=== PATIENT | female | born 1980 | race Caucasian/White ===

== ENCOUNTER → 2022-10-17 09:49 | Outpatient (BNVA) | payer MEDICAID, SELFPAY | PROVIDERS: PCP Family Medicine; Visit Provider Physician Assistant Surgical ==

== ENCOUNTER → 2022-10-31 08:28 | Outpatient (BNVA) | payer MEDICAID, SELFPAY | PROVIDERS: PCP Family Medicine; Visit Provider Surgery ==

== ENCOUNTER 2022-11-08 09:27 | Outpatient (REF) | payer MEDICAID, SELFPAY ==
--- NOTE | ~2022-11-08 | XR_ITS ---
EXAMINATION: XR CHEST CLINICAL INFORMATION: Obesity COMPARISON: Previous chest x-ray from 2011 TECHNIQUE: 2 views of the chest were obtained. FINDINGS: No significant abnormality is noted involving the heart, lungs, mediastinum, bony thorax or soft tissues. XR/XR chest 2V IMPRESSION: Unremarkable examination.
[2022-11-08 09:45] LABS: MANUAL DIFF FLAG NO
[2022-11-08 10:27] LABS: Basophils Absolute Auto 0.1 X10*3/uL (0.0-0.2); Basophils Percent Auto 1.2 % (0-2); Eosinophils Absolute Auto 0.1 X10*3/uL (0.0-0.4); Eosinophils Percent Auto 2.3 % (0-4); Hematocrit 41.1 % (37.0-47.0); Hemoglobin 13.3 g/dl (12.0-16.0); Imm Gran Abs Auto 0.01 X10*3/uL (0.00-0.03); Imm Gran Pct Auto 0.2 % (0.0-0.4); Lymphocytes Absolute Auto 1.3 X10*3/uL (1.2-4.9); Lymphocytes Percent Auto 25.5 % (20-40); Mean Corpuscular HGB Conc 32.4 g/dl (31.0-35.0); Mean Corpuscular Hemoglobin 27.7 pg (27.0-33.0); Mean Corpuscular Volume 85.6 fL (80.0-98.0); Mean Platelet Volume 11.1 fL (9.4-12.3); Monocytes Absolute Auto 0.5 X10*3/uL (0.1-1.2); Monocytes Percent Auto 8.9 % (2-11); Neutrophils Absolute Auto 3.2 x10*3/uL (2.0-8.3); Neutrophils Percent Auto 61.9 % (45-73); Platelet Count 167 X10*3/uL (160-400); White Blood Count 5.2 X10*3/uL (4.8-10.8)
[2022-11-08 10:36] LABS: Estimated Average Glucose 100 mg/dL; Hemoglobin A1c % 5.1 %
--- NOTE | 2022-11-08 10:47 | ECG_ITS ---
Test Reason : MORBID OBESITY Blood Pressure : / mmHG Vent. Rate : 079 BPM Atrial Rate : 079 BPM P-R Int : 134 ms QRS Dur : 074 ms QT Int : 372 ms P-R-T Axes : 017 013 008 degrees QTc Int : 426 ms Normal sinus rhythm Normal ECG No previous ECGs available Referred By: Partha Kelsey Electronically Signed By:DANYA VELÁSQUEZ MD
[2022-11-08 11:39] LABS: Alanine Aminotransferase 28 U/L (0-31); Albumin Level 3.9 g/dL (3.5-5.0); Alkaline Phosphatase 61 U/L (39-117); Anion Gap 12 (12-20); Aspartate Amino Transferase 21 U/L (5-31); Bilirubin Total 0.6 mg/dL (0.0-1.0); Blood Urea Nitrogen 11 mg/dL (9-16); C Reactive Protein < 0.10 mg/dL (< or = 0.50); Calcium 9.2 mg/dL (8.4-10.2); Carbon Dioxide 23 mmol/L (22-29); Chloride 108 mmol/L (96-108); Cholesterol 154 mg/dL; Estimated Glomerular Filt Rate > 60; Glucose Random 87 mg/dL (60-115); HDL Cholesterol 33 mg/dL; Iron 54 mcg/dL (30-160); LDL Cholesterol Calculated 105 mg/dl; Percent Iron Saturation 15 % (15-50); Potassium 4.4 mmol/L (3.3-5.1); Sodium 139 mmol/L (135-145); Total Iron Binding Capacity 366 mcg/dL (228-428); Total Protein 6.8 g/dL (6.5-8.0); Triglycerides 81 mg/dL; Unsaturated Iron Binding 312 ug/dL
[2022-11-08 11:52] LABS: Ferritin 10 ng/mL (10-250); Folate 12.5 ng/mL (> or = 4.0); TSH reflex Free T4 0.86 uIU/mL (0.32-4.0); Vitamin B12 607 pg/mL (200-900); Vitamin D 25-OH Total 28.8 ng/mL (>30)
[2022-11-08 12:38] LABS: Insulin 15 uU/mL (2-29)
[2022-11-11 11:27] LABS: H Pylori Breath Test Positive (Negative)
[2022-11-12 15:24] LABS: Calcium (PTHI) 9.5 mg/dL (8.6-10.2); PTHI 24 pg/mL (16-77)
[2022-11-13 12:54] LABS: Zinc 71 mcg/dL (60-130)
[2022-11-15 05:58] LABS: Vitamin A 39 mcg/dL (38-98)
[2022-11-17 15:23] LABS: Vitamin B1 8 nmol/L (8-30)
== END 2022-11-08 09:28 | disposition home or self-care (01) ==
LOC: HO.LAB 09:27
PROVIDERS: PCP Family Medicine; Visit Provider Surgery
DX: E66.01 Morbid (severe) obesity due to excess calories (principal); E03.9 Hypothyroidism, unspecified; E78.5 Hyperlipidemia, unspecified; K21.9 Gastro-esophageal reflux disease without esophagitis; Z11.0 Encounter for screening for intestinal infectious diseases
CPT/HCPCS: 36415; 71046; 80053; 80061; 82306; 82607; 82728; 82746; 83013; 83036; 83525; 83540; 83970; 84425; 84443; 84590; 84630; 85025; 86140; 93005; 99211

== ENCOUNTER 2022-11-09 08:00 | Outpatient (REF) | payer MEDICAID, SELFPAY ==
--- NOTE | ~2022-11-09 | US_ITS ---
EXAMINATION: US COMPLETE ABDOMEN WITH LIVER ELASTOGRAPHY CLINICAL INFORMATION: Morbid/severe obesity. COMPARISON: None available. TECHNIQUE: Real-time imaging of the abdominal viscera. Noninvasive ultrasound liver fibrosis assessment is performed using [place] ElastPQ point quantification shear wave elastography (2D-SWE) with a C5-2 MHz transducer. Multiple elastography samples are obtained. FINDINGS: PANCREAS: The visualized pancreatic head and body are normal in appearance. The remainder of the pancreas is obscured from visualization by the overlying bowel gas. ABDOMINAL AORTA: The proximal, middle, and distal aortic segments are normal in caliber. INFERIOR VENA CAVA: Visualized portions are normal. LIVER: The liver demonstrates normal size, contour and increased echogenicity. No focal lesion or intrahepatic biliary duct dilatation. The right lobe measures 14.5 cm in length. The left lobe measures 9.5 cm in length. Portal flow is hepatopetal. Shear wave liver elastography median stiffness is 1.82 m/s (reference: normal median stiffness is 1.3 m/s or less). IQR/median stiffness to assess sampling precision is 0.14 (reference: good quality data set is IQR/median stiffness of 0.15 or less). GALLBLADDER: The gallbladder has been surgically removed. COMMON BILE DUCT: Normal in caliber measuring 0.8 cm in diameter. RIGHT KIDNEY: Normal. No hydronephrosis. No renal calculi or focal parenchymal lesions. The kidney measures 11.2 cm in maximum dimension. LEFT KIDNEY: Normal. No hydronephrosis. No renal calculi or focal parenchymal lesions. The kidney measures 10.2 cm in maximum dimension. SPLEEN: Normal. The spleen measures 9.7 cm in maximum dimension. FREE FLUID: None. US/US abdomen comp w elastography IMPRESSION: 1. Mild hepatic steatosis without focal lesion. Status post cholecystectomy. 2. Liver elastography: Median liver stiffness measures 1.82 m/s corresponding to cACLD (suggestive). REFERENCE: Society of Radiologists in Ultrasound Liver Stiffness Thresholds (2020): LIVER STIFFNESS THRESHOLDS: *Liver Stiffness equal or less than 1.3 m/s: High probability of being normal. *Liver Stiffness less than 1.7 m/s: In the absence of other known clinical signs, rules out compensated advanced chronic liver disease. *Liver Stiffness 1.7-2.1 m/s: Suggestive of compensated advanced chronic liver disease but need further test for confirmation. *Liver Stiffness over 2.1 m/s: Rules in compensated advanced chronic liver disease. *Liver Stiffness over 2.4 m/s: Suggestive of clinically significant portal hypertension. QUALITY OF DATA SET: *IQR/Median value equal or less than 0.15 implies a quality data set. *IQR/Median value over 0.15 implies a poor quality data set. SIGNIFICANT CHANGE FROM PRIOR EXAM: Significant change if liver stiffness measurement is 10% or greater from prior exam. OTHER CONSIDERATIONS: The stage of liver fibrosis may be overestimated in the setting of acute hepatitis, liver inflammation, elevated liver function tests, hepatic vascular congestion, obstructive cholestasis, non-fasting state, and infiltrative diseases such as amyloidosis and lymphoma. In some patients with NAFLD, the liver stiffness thresholds for compensated advanced chronic liver disease may be lower. In causes other than viral hepatitis and NAFLD, liver stiffness thresholds are not well established.
== END 2022-11-09 08:01 | disposition home or self-care (01) ==
LOC: HO.US 08:00
PROVIDERS: PCP Family Medicine; Visit Provider Surgery
DX: E66.01 Morbid (severe) obesity due to excess calories (principal); E03.9 Hypothyroidism, unspecified; K21.9 Gastro-esophageal reflux disease without esophagitis; E78.5 Hyperlipidemia, unspecified
CPT/HCPCS: 76705; 76981

== ENCOUNTER → 2022-11-27 09:10 | Outpatient (BNVA) | payer MEDICAID, SELFPAY | PROVIDERS: PCP Family Medicine; Visit Provider Dietitian, Registered | DX: E66.9 Obesity, unspecified (principal); Z68.39 Body mass index [BMI] 39.0-39.9, adult; Z71.3 Dietary counseling and surveillance | CPT/HCPCS: 97802 ==

== ENCOUNTER 2022-12-06 18:02 | Outpatient (REF) | payer MEDICAID, SELFPAY ==
--- NOTE | ~2022-12-06 | MR_ITS ---
EXAMINATION: MR LUMBAR SPINE WITHOUT CONTRAST CLINICAL INFORMATION: Lumbar radiculopathy. COMPARISON: Lumbar spine MRI 01/16/2010. TECHNIQUE: MRI of the lumbar spine was obtained using routine sequences without contrast. FINDINGS: The lumbar vertebral bodies maintain normal heights and alignment. Progressive now severe disc height loss is seen at L5-S1 with chronic degenerative endplate changes. The remaining disc heights appear preserved. There is no bone marrow edema. The distal spinal cord appears normal. The conus medullaris terminates normally at the L1 level. The visualized paraspinal muscles and intra-abdominal and pelvic contents are within normal limits. SPINAL LEVELS: L1-L2: No posterior disc abnormality. No spinal canal or neural foraminal stenosis. L2-L3: No posterior disc abnormality. No spinal canal or neural foraminal stenosis. L3-L4: Mild disc bulging. No spinal canal or neural foraminal stenosis. L4-L5: Disc bulging with mild facet arthropathy. Mild encroachment with subarticular zones. L5-S1: Disc bulging with central protrusion with moderate facet arthropathy resulting in compression of the traversing right S1 nerve root, progressed from prior. Mild spinal canal stenosis. Osteophytic ridging extends into the left more than right neural foramina resulting in severe left and moderate to severe right neural foraminal stenosis. MR/MR lumbar spine wo con IMPRESSION: 1. At L5-S1 there is progressive now severe disc height loss with chronic degenerative endplate changes. Central protrusion results in compression of the traversing right S1 nerve root, progressed from prior. Severe left and moderate to severe right neural foraminal stenosis. 2. No significant abnormality seen at the remaining lumbar levels.
== END 2022-12-06 18:03 | disposition home or self-care (01) ==
LOC: HO.MRI 18:02
PROVIDERS: PCP Family Medicine; Visit Provider Family Medicine
DX: M54.16 Radiculopathy, lumbar region (principal)
CPT/HCPCS: 72148

== ENCOUNTER → 2022-12-10 14:00 | Outpatient (BNVA) | payer OTHER, MEDICAID, SELFPAY | PROVIDERS: PCP Family Medicine; Visit Provider Counselor Mental Health ==

== ENCOUNTER → 2022-12-13 09:55 | Outpatient (BNVA) | payer MEDICAID, SELFPAY | PROVIDERS: PCP Family Medicine; Visit Provider Physician Assistant Surgical | DX: Z11.0 Encounter for screening for intestinal infectious diseases (principal) | CPT/HCPCS: 99211 ==

== ENCOUNTER 2022-12-14 18:12 | Outpatient (REF) | payer MEDICAID, SELFPAY ==
[2022-12-19 12:10] LABS: H Pylori Breath Test Negative (Negative)
== END 2022-12-14 18:13 | disposition home or self-care (01) ==
LOC: HO.LNP 18:12
PROVIDERS: Visit Provider Physician Assistant Surgical
DX: Z01.818 Encounter for other preprocedural examination (principal)
CPT/HCPCS: 83013

== ENCOUNTER → 2022-12-24 08:07 | Outpatient (BNVA) | payer MEDICAID, SELFPAY | PROVIDERS: PCP Family Medicine; Visit Provider Surgery ==

== ENCOUNTER → 2022-12-27 10:00 | Outpatient (BNVA) | payer OTHER, MEDICAID, SELFPAY | PROVIDERS: PCP Family Medicine; Visit Provider Counselor Mental Health ==

== ENCOUNTER 2023-01-02 08:18 | Outpatient (REF) | payer MEDICAID, SELFPAY ==
--- NOTE | ~2023-01-02 | FL_ITS ---
EXAMINATION: XR FLUOROSCOPY UPPER GI WITH AIR CLINICAL INFORMATION: Obesity COMPARISON: None available. TECHNIQUE: Upper GI was performed using thin and thick barium and effervescent granules FINDINGS: Esophageal motility is normal. No hernia or reflux. The stomach and duodenum are normal. No fold thickening, mass, ulcer or stricture. FLUOROSCOPY TIME: 0.2 minutes DOSE AREA PRODUCT: 2 Hood per centimeter squared. Total dose 11 mgy. 22 saved fluoroscopic images. FL/FL upper GI w air IMPRESSION: Unremarkable examination.
== END 2023-01-02 08:19 | disposition home or self-care (01) ==
LOC: HO.XRAY 08:18
PROVIDERS: Visit Provider Surgery
DX: E66.01 Morbid (severe) obesity due to excess calories (principal); E03.9 Hypothyroidism, unspecified; K21.9 Gastro-esophageal reflux disease without esophagitis
CPT/HCPCS: 74246

== ENCOUNTER → 2023-01-03 09:51 | Outpatient (BNVA) | payer MEDICAID, SELFPAY | PROVIDERS: PCP Family Medicine; Visit Provider Dietitian, Registered | DX: E66.9 Obesity, unspecified (principal) | CPT/HCPCS: 97803 ==

== ENCOUNTER 2023-01-14 13:14 | Outpatient (AMB) | payer MEDICAID, SELFPAY ==
[2023-01-14 10:15] VITALS: BMI 35.4
--- NOTE | 2023-01-14 10:15 | MHC.OFFVISWM ---
Intake VS Expanded 01/14/23 10:15 Height 5 ft 1 in Weight 187 lb 3.2 oz BMI 35.4 Body Fat 85.9 Body Fat Percentage 45.9 Free Fat Mass 101.2 Muscle Mass 95.2 Visceral Mass 18 Water Mass 69.4 BMR 1,349 Intake Visit Reasons: VIDEO F/U [facility] Escrow Manager Required: No Allergies diphenhydramine [From Benadryl] Allergy (Mild, Verified 12/13/22 10:10) Palpitations Medication List - Last Reconciled 01/14/23 by YANN Adam cholecalciferol (vitamin D3) 125 mcg PO DAILY levothyroxine 100 mcg PO DAILY HPI HPI Comments History of Present Illness Details 42 yo female returns for f/u in [facility] pre-op clinic Last seen by Dr Tatum Initial weight 212.4 pounds on 10/31/22 with a BMI of 40.1 Weight today 187.2 pounds with BMI of 35.4 Weight loss 25.2 pounds, 11.8 % TBWL Meal plan: one Premier protein shake (1/2 scoop in almond milk) one Premier shake (1 scoop in almond milk) one Zone Perfect protein bar one meal (8 forkfuls of protein and 8 forkfuls of salad or vegetables) Drinking 80-96 oz water Exercise plan: stationary bike, 200-500 calories daily PFS Medical History (Updated 12/24/22 @ 08:26 by Partha Kelsey MD) DJD (degenerative joint disease) GERD (gastroesophageal reflux disease) Hyperlipidemia Hypothyroidism Morbid obesity Surgical History (Updated 10/17/22 @ 09:59 by Sahra Queen CMA) Hx of section Hx of cholecystectomy Family History (Updated 10/17/22 @ 10:01 by Sahra Queen CMA) Mother Diabetes Hypertension Father No problems noted. Son No problems noted. Son No problems noted. Daughter No problems noted. Social History (Updated 10/17/22 @ 09:59 by Sahra Queen CMA) Alcohol intake: never Patient Tobacco Use Status: Current everyday Tobacco user Tobacco use type: Cigarette Cigarettes Per Day: 5 Review of Systems Const All systems reviewed & are unremarkable except as noted in HPI and below Assessment & Plan Assessment & Plan (1) Obesity: Code(s): E66.9 - Obesity, unspecified Plan: continue current meal plan She states she has less appetite for chicken as she is a picky eater. States will try turkey and more veg including green beans and aspagus Continue exercise and tracking calories Continue weekly measurements RTC as scheduled w Dr Tatum in February Telehealth Telehealth Location of provider rendering services: practice address Location of patient: address on file Patient Identification confirmed using: Name, : Yes Telehealth method: video Patient verbally consented to treatment: Yes Patient verbally consented to billing insurance company: Yes Patient informed of any privacy concerns related to visit: Yes Minutes spent on Phone/Video with Pt.: 15 Coding Level of Care Code Tele Est Pt Level 3 (16887) Diagnoses Obesity E66.9 Time Spent (min) 20
== END 2023-01-14 13:15 | disposition home or self-care (01) ==
LOC: HO.HBS 13:14
PROVIDERS: PCP Family Medicine; Visit Provider Physician Assistant Surgical
DX: E66.9 Obesity, unspecified (principal)
CPT/HCPCS: 99213

== ENCOUNTER 2023-01-21 09:45 | Outpatient (AMB) | payer OTHER, SELFPAY ==
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
== END 2023-01-21 13:33 | disposition home or self-care (01) ==
LOC: HO.HBST 10:48
PROVIDERS: PCP Family Medicine; Visit Provider Counselor Mental Health
DX: F06.30 Mood disorder due to known physiological condition, unspecified (principal); E66.01 Morbid (severe) obesity due to excess calories; Z68.36 Body mass index [BMI] 36.0-36.9, adult
CPT/HCPCS: 90832

== ENCOUNTER → 2023-01-21 09:45 | Outpatient (BNVA) | payer OTHER, MEDICAID, SELFPAY | PROVIDERS: PCP Family Medicine; Visit Provider Counselor Mental Health | DX: F06.30 Mood disorder due to known physiological condition, unspecified (principal); E66.01 Morbid (severe) obesity due to excess calories ==

== ENCOUNTER 2023-01-28 14:00 | Outpatient (AMB) | payer MEDICAID, SELFPAY ==
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
== END 2023-01-29 15:55 | disposition home or self-care (01) ==
LOC: HO.HBST 14:44
PROVIDERS: PCP Family Medicine; Visit Provider Counselor Mental Health
DX: F06.30 Mood disorder due to known physiological condition, unspecified (principal); E66.01 Morbid (severe) obesity due to excess calories
CPT/HCPCS: 90832

== ENCOUNTER → 2023-01-28 14:00 | Outpatient (BNVA) | payer OTHER, MEDICAID, SELFPAY | PROVIDERS: PCP Family Medicine; Visit Provider Counselor Mental Health | DX: F06.30 Mood disorder due to known physiological condition, unspecified (principal); E66.01 Morbid (severe) obesity due to excess calories ==

== ENCOUNTER 2023-02-22 07:58 | Outpatient (AMB) | payer MEDICAID, SELFPAY ==
--- NOTE | 2023-02-22 08:30 | A.OFFVIS_ITS ---
Intake VS Expanded 02/22/23 08:38 Height 5 ft 1 in Weight 180 lb 8 oz BMI 34.1 Body Fat 79.7 Body Fat Percentage 44.1 Free Fat Mass 101 Visceral Mass 17 Water Mass 69.2 BMR 1,345 Intake Visit Reasons: TV Follow Up SWL Allergies diphenhydramine [From Benadryl] Allergy (Mild, Verified 12/13/22 10:10) Palpitations HPI TV Follow Up SWL HPI Details Start time: 8.25am, End time: 8.45am ?I spent 15 minutes speaking with the patient on the phone plus an additional 5 minutes reviewing and updating records for a total of 20 minutes HPI Comments History of Present Illness Details Overall weight loss: 31.6lbs, or 14.88% TBWL Is doing 2 powdered Premier protein shake (1 one scoop each in 8oz almond milk), one Zone Perfect protein bar and one meal (8 forks of protein) Exercise: doing stationary bike at home for 400 calories daily x7 days per week PFSH Medical History (Updated 02/22/23 @ 08:41 by Partha Kelsey MD) DJD (degenerative joint disease) GERD (gastroesophageal reflux disease) Hyperlipidemia Hypothyroidism Morbid obesity Surgical History (Updated 10/17/22 @ 09:59 by Sahra Queen CMA) Hx of section Hx of cholecystectomy Family History (Updated 10/17/22 @ 10:01 by Sahra Queen CMA) Mother Diabetes Hypertension Father No problems noted. Son No problems noted. Son No problems noted. Daughter No problems noted. Social History (Updated 10/17/22 @ 09:59 by Sahra Queen CMA) Alcohol intake: never Patient Tobacco Use Status: Current everyday Tobacco user Tobacco use type: Cigarette Cigarettes Per Day: 5 Assessment & Plan Assessment & Plan (1) Obesity: Code(s): E66.9 - Obesity, unspecified Plan: 1. Plan for lap sleeve gastrectomy including upper GI endoscopy. All tests has been completed and reviewed and the patient is cleared for the surgery. ?If diaphragmatic or ventral hernias are present at time of surgery, these will be repaired laparoscopically as well. Risks and complications were discussed in detail including possible conversion to an open procedure, anastomotic leak, bleeding requiring transfusion, small bowel obstruction, , DVT and pulmonary embolism, cardiac, or pulmonary complications, as detention complications such as anastomotic ulcer, insufficient weight loss and vitamin deficiencies. I emphasized the importance of close follow-up, adherence to instructions and good communication. So far she has proven to be an excellent communicator and very compliant with all our directions accomplishing a great w eight loss. I believe that she is an excellent candidate and she is ready. 2. Change nutritional plan to one Premier protein shake (HALF scoop in 8oz almond milk), one powdered Premier protein shake (1 one scoop in 8oz almond milk), one Zone Perfect protein bar and one meal (8 forks of protein) 3. Exercise: Continue stationary bike at home for 400 calories daily x7 days per week 4. Continue to send me weigh measurements weekly on (2) BMI 34.0-34.9,adult: Code(s): Z68.34 - Body mass index [BMI] 34.0-34.9, adult Telehealth Telehealth Location of provider rendering services: practice address Location of patient: address on file Patient Identification confirmed using: Name, : Yes Telehealth method: voice only Patient verbally consented to treatment: Yes Patient verbally consented to billing insurance company: Yes Patient informed of any privacy concerns related to visit: Yes Minutes spent on Phone/Video with Pt.: 20 Coding Level of Care Code Tele Est Pt Level 3 (63298) Diagnoses Obesity E66.9 BMI 34.0-34.9,adult Z68.34 Time Spent (min) 20
[2023-02-22 08:38] VITALS: BMI 34.1
== END 2023-02-22 08:45 | disposition home or self-care (01) ==
LOC: HO.HBS 07:58
PROVIDERS: PCP Family Medicine; Visit Provider Surgery
DX: E66.9 Obesity, unspecified (principal); Z68.34 Body mass index [BMI] 34.0-34.9, adult
CPT/HCPCS: 99213

== ENCOUNTER → 2023-02-22 07:58 | Outpatient (BNVA) | payer MEDICAID, SELFPAY | PROVIDERS: PCP Family Medicine; Visit Provider Surgery ==

== ENCOUNTER 2023-02-26 11:28 | Outpatient (AMB) | payer MEDICAID, SELFPAY ==
--- NOTE | 2023-02-26 11:49 | MHC.OFFVISWM ---
Intake VS Expanded 02/26/23 18:56 Height 5 ft 1 in Weight 180 lb 8 oz BMI 34.1 Body Fat 79.7 Body Fat Percentage 44.1 Free Fat Mass 101 Visceral Mass 17 Water Mass 69.2 BMR 1,345 Intake Visit Reasons: TV Pre Op LSG 03/07/23 Allergies diphenhydramine [From Benadryl] Allergy (Mild, Verified 02/26/23 11:49) Palpitations Medication List - Last Reconciled 02/26/23 by Partha Kelsey MD cholecalciferol (vitamin D3) 125 mcg PO DAILY levothyroxine 100 mcg PO DAILY ondansetron 4 mg PO Q12H pantoprazole 40 mg PO DAILY polyethylene glycol 3350 (Miralax) 17 grams PO DAILY sucralfate 10 mL PO BID HPI TV Pre Op LSG 03/07/23 HPI Details Start time: 1.50pm, End time: 2.20pm I spent 25 minutes speaking with the patient on the phone plus an additional 5 minutes reviewing and updating records for a total of 30 minutes HPI Comments History of Present Illness Details Overall weight loss: 31.6lbs, or 14.88% TBWL Is doing 2 powdered Premier protein shake (1 one scoop each in 8oz almond milk), one Zone Perfect protein bar and one meal (8 forks of protein) Exercise: doing stationary bike at home for 400 calories daily x7 days per week ? PFSH Medical History (Updated 02/22/23 @ 08:41 by Partha Kelsey MD) DJD (degenerative joint disease) GERD (gastroesophageal reflux disease) Hyperlipidemia Hypothyroidism Morbid obesity Surgical History (Updated 10/17/22 @ 09:59 by Sahra Queen CMA) Hx of section Hx of cholecystectomy Family History (Updated 10/17/22 @ 10:01 by Sahra Queen CMA) Mother Diabetes Hypertension Father No problems noted. Son No problems noted. Son No problems noted. Daughter No problems noted. Social History (Updated 10/17/22 @ 09:59 by Sahra Queen CMA) Alcohol intake: never Patient Tobacco Use Status: Current everyday Tobacco user Tobacco use type: Cigarette Cigarettes Per Day: 5 Assessment & Plan Assessment & Plan (1) Obesity: Code(s): E66.9 - Obesity, unspecified Plan: 1. Plan for lap sleeve gastrectomy including upper GI endoscopy. All tests has been completed and reviewed and the patient is cleared for the surgery. ?If diaphragmatic or ventral hernias are present at time of surgery, these will be repaired laparoscopically as well. Risks and complications were discussed in detail including possible conversion to an open procedure, anastomotic leak, bleeding requiring transfusion, small bowel obstruction, , DVT and pulmonary embolism, cardiac, or pulmonary complications, as terminal gauger complications such as anastomotic ulcer, insufficient weight loss and vitamin deficiencies. I emphasized the importance of close follow-up, adherence to instructions and good communication. So far she has proven to be an excellent communicator and very compliant with all our directions accomplishing a great weight loss. I believe that she is an excellent candidate and she is ready. 2. Preop prescriptions were provided and explained the purpose of each one. Need to be purchased preop. Start Pantoprazole now as you get it from the pharmacy, 1 pill per day. Sucralfate and Zofran are for after surgery as needed. 3. Bowel prep: please do 7 packets ?of Miralax mixing each one with a an 8oz glass of water, crystal light, gatorade zero, or propel ?on 03/03/23 and the same amount on 03/04/23. Continue the protein shakes during? the bowel prep. 4. Needs to purchase 1oz medicine cups . 5. Needs to purchase Children's liquid Tylenol for postop pain control. 6. Avoid aspirin, motrin, Advil, Aleve, Ibuprofen, Naproxyn. Tylenol is OK. 7. She needs to purchase the Celebrate 4:1 protein shakes from the hospital's gift shop. 8. Will do basic preop blood work-up any day between Saturday02/27/23 and Saturday03/01/23 fasting for 12 hours and is scheduled to see the Anesthesiologist prior to the day of surgery. 9. Importance of adherence to postop folllow-up and recommendations was underscored and she understands that. 10. Stop food and bars as of today 02/26/23 and continue with 4 Premier powdered protein shakes (ONE scoop EACH in 8oz almond milk) at 7am-9am, 10am-12pp, 1pm-3pm and 4pm-6pm and ONE more Premier protein shake with HALF scoop in 8oz of almond milk at 7pm-9pm 11. No soups, broths or V8 12. The patient's?medical?history has been reviewed and they are considered low risk for post op DVT and therefore DVT prophylaxis is not considered necessary. Travel after surgery was reviewed. The patient has not disclosed any travel plans during the first 30 days after surgery and they have been advised that within the first 30 days after surgery any bus, plane, train or car travel over 2 hours in duration is contraindicated due to the possibility of developing blood clots from immobility. Any travel, needs to include periods of ambulation of 10 minutes in duration every 2 hours.? Patient was instructed to discuss any plans for travel during this period with their bariatric surgeon.? 13. Please take at the day of surgery the following medications: NONE 14. Stop any control pills and don't use them for one month after surgery 15. Absolutely no smoking or vaping, or marijuana until the surgery and for at least the first 4 weeks. Only nicotine patches are allowed. 16. Send me weight measurements on Saturday and then on Saturday03/05/23 the day of surgery before you go to the hospital. 17. Avoid any steroids by mouth for any reason. Let me know if someone prescribes them to you (2) BMI 34.0-34.9,adult: Code(s): Z68.34 - Body mass index [BMI] 34.0-34.9, adult (3) DJD (degenerative joint disease): Code(s): M19.90 - Unspecified osteoarthritis, unspecified site (4) GERD (gastroesophageal reflux disease): Code(s): K21.9 - Gastro-esophageal reflux disease without esophagitis (5) Hypothyroidism: Code(s): E03.9 - Hypothyroidism, unspecified Orders: Orders Type and Screen Today E66.9 - Obesity, unspecified, Z68.34 - Body mass index [BMI] 34.0-34.9, adult Comprehensive Met. Panel Today E66.9 - Obesity, unspecified, Z68.34 - Body mass index [BMI] 34.0-34.9, adult C Reactive Protein Today E66.9 - Obesity, unspecified, Z68.34 - Body mass index [BMI] 34.0-34.9, adult Hemoglobin A1c Today E66.9 - Obesity, unspecified, Z68.34 - Body mass index [BMI] 34.0-34.9, adult Insulin Today E66.9 - Obesity, unspecified, Z68.34 - Body mass index [BMI] 34.0-34.9, adult Lipid Panel Today E66.9 - Obesity, unspecified, Z68.34 - Body mass index [BMI] 34.0-34.9, adult TSH reflex Free T4 Today E66.9 - Obesity, unspecified, Z68.34 - Body mass index [BMI] 34.0-34.9, adult Prothrombin Time INR Today E66.9 - Obesity, unspecified, Z68.34 - Body mass index [BMI] 34.0-34.9, adult Partial Thromboplastin Time Today E66.9 - Obesity, unspecified, Z68.34 - Body mass index [BMI] 34.0-34.9, adult Complete Blood Count Auto Diff Today E66.9 - Obesity, unspecified, Z68.34 - Body mass index [BMI] 34.0-34.9, adult Medications: New pantoprazole 40 mg PO DAILY 30 tabs 2RF K21.9 - Gastro-esophageal reflux disease without esophagitis sucralfate 10 mL PO BID 400 mL 2RF K21.9 - Gastro-esophageal reflux disease without esophagitis ondansetron Use only if you have nausea 4 mg PO Q12H 20 tabs 0RF nausea and vomiting R11.0 - Nausea polyethylene glycol 3350 (Miralax) Mix each packet with 8oz of water, Gatorade zero, Propel or Crystal light and do 7 packets on 03/03/23 and another 7 packets on 03/04/23 17 grams PO DAILY 14 ea 0RF Z01.818 - Encounter for other preprocedural examination Telehealth Telehealth Location of provider rendering services: practice address Location of patient: address on file Patient Identification confirmed using: Name, : Yes Telehealth method: voice only Patient verbally consented to treatment: Yes Patient verbally consented to billing insurance company: Yes Patient informed of any privacy concerns related to visit: Yes Minutes spent on Phone/Video with Pt.: 30 Coding Level of Care Code Tele Est Pt Level 4 (60751) Diagnoses Obesity E66.9 BMI 34.0-34.9,adult Z68.34 DJD (degenerative joint disease) M19.90 GERD (gastroesophageal reflux disease) K21.9 Hypothyroidism E03.9 Time Spent (min) 30
[2023-02-26 18:56] VITALS: BMI 34.1
== END 2023-02-26 19:03 | disposition home or self-care (01) ==
LOC: HO.HBS 11:28
PROVIDERS: PCP Family Medicine; Visit Provider Surgery
DX: E66.9 Obesity, unspecified (principal); Z68.34 Body mass index [BMI] 34.0-34.9, adult
CPT/HCPCS: 99214

== ENCOUNTER → 2023-02-26 11:28 | Outpatient (BNVA) | payer MEDICAID, SELFPAY | PROVIDERS: PCP Family Medicine; Visit Provider Surgery ==

== ENCOUNTER 2023-02-28 10:44 | Outpatient (REF) | payer MEDICAID, SELFPAY ==
[2023-02-28 11:04] LABS: MANUAL DIFF FLAG NO
[2023-02-28 11:07] LABS: Basophils Absolute Auto 0.1 X10*3/uL (0.0-0.2); Eosinophils Absolute Auto 0.1 X10*3/uL (0.0-0.4); Eosinophils Percent Auto 1.5 % (0-4); Hematocrit 41.5 % (37.0-47.0); Hemoglobin 13.5 g/dl (12.0-16.0); Imm Gran Abs Auto 0.01 X10*3/uL (0.00-0.03); Imm Gran Pct Auto 0.2 % (0.0-0.4); Lymphocytes Absolute Auto 1.8 X10*3/uL (1.2-4.9); Lymphocytes Percent Auto 28.5 % (20-40); Mean Corpuscular HGB Conc 32.5 g/dl (31.0-35.0); Mean Corpuscular Hemoglobin 26.9 pg (27.0-33.0); Mean Corpuscular Volume 82.7 fL (80.0-98.0); Mean Platelet Volume 10.5 fL (9.4-12.3); Monocytes Absolute Auto 0.4 X10*3/uL (0.1-1.2); Monocytes Percent Auto 6.8 % (2-11); Neutrophils Absolute Auto 3.8 x10*3/uL (2.0-8.3); Platelet Count 168 X10*3/uL (160-400); Red Blood Count 5.02 X10*6/uL (4.20-5.50); Red Cell Distribution Width 15.2 % (11.0-16.0); White Blood Count 6.1 X10*3/uL (4.8-10.8)
[2023-02-28 11:20] LABS: INTERNATIONAL NORM RATIO 0.9 (0.9-1.1); Prothrombin Time 11.3 SEC (11.1-13.3)
[2023-02-28 11:22] LABS: Partial Thromboplastin Time 30.9 SEC (26.0-36.4)
[2023-02-28 11:28] LABS: Alanine Aminotransferase 14 U/L (0-31); Albumin Level 3.9 g/dL (3.5-5.0); Alkaline Phosphatase 56 U/L (39-117); Anion Gap 11 (12-20); Aspartate Amino Transferase 16 U/L (5-31); Bilirubin Total 0.7 mg/dL (0.0-1.0); Blood Urea Nitrogen 10 mg/dL (9-16); C Reactive Protein 0.11 mg/dL (< or = 0.50); Calcium 9.6 mg/dL (8.4-10.2); Carbon Dioxide 23 mmol/L (22-29); Chloride 110 mmol/L (96-108); Cholesterol 169 mg/dL (<200); Estimated Glomerular Filt Rate > 60; Glucose Random 93 mg/dL (60-115); HDL Cholesterol 39 mg/dL (>40); LDL Cholesterol Calculated 112 mg/dL (<100); Potassium 4.5 mmol/L (3.3-5.1); Sodium 139 mmol/L (135-145); Total Protein 7.4 g/dL (6.5-8.0); Triglycerides 92 mg/dL (<150)
[2023-02-28 11:32] LABS: Estimated Average Glucose 94 mg/dL; Hemoglobin A1c % 4.9 % (<6.0)
[2023-02-28 11:47] LABS: TSH reflex Free T4 2.16 uIU/mL (0.32-4.0)
[2023-02-28 15:17] LABS: Insulin 18 uU/mL (2-29)
== END 2023-02-28 10:45 | disposition home or self-care (01) ==
LOC: HO.LAB 10:44
PROVIDERS: Visit Provider Surgery
DX: E66.9 Obesity, unspecified (principal); Z68.34 Body mass index [BMI] 34.0-34.9, adult
CPT/HCPCS: 36415; 80053; 80061; 83036; 83525; 84443; 85025; 85610; 85730; 86140

== ENCOUNTER 2023-03-06 06:06 | Inpatient (IN) | payer MEDICAID, SELFPAY ==
[2023-02-27 09:38] VITALS: BMI 35.2
--- NOTE | 2023-03-01 23:05 | P.HPSUR_ITS ---
Pre-Procedural Eval Section A Date of Service: 03/01/23 The patient is an INPATIENT: Yes The History & Physical has been completed within 30 days and I have reviewed it.: Yes Section B Chief Complaint: Obesity, unspecified Relevant Family History (Specify if Yes): No Relevant Social History: None Present Medications: None Medical History: No relevant PMH History of Previous Operations: No relevant previous surgery Allergies: Allergies Allergy/AdvReac Type Severity Reaction Status Date / Time diphenhydramine Allergy Mild Palpitation Verified 02/26/23 11:49 [From Saniya] s Review of Systems Sugical H&P ROS: Negative: Constitution, Cardiovascular, Respiratory, Neurological, Psychiatric, Hem-Onc, Allergic/Immunologic, Gastrointestinal, Genitourinary, Musculoskeletal, Integumentary, Endocrine and Eye s/Ears/Nose/Throat Exam Surgical H&P Exam: Normal: HEENT, Normal: Heart, Normal: Lungs, Normal: Extremities, Normal: Abdomen, Normal: Skin and Normal: Neurological Plan Diagnosis/Plan: Unchanged I have reviewed the history and physical and performed a pertinent physical examination on my patient. No changes have occurred unless specified. Time Spent With Patient Time: Total time managing care of this patient today ____ minutes.
--- NOTE | 2023-03-04 12:12 | P.CONAN_ITS ---
Documented by User: Aissatou Mendoza NP 03/04/23 12:13 HPI - Anesthesia Eval Consult details Narrative: 43yo F for Gastrectomy Sleeve Egd, poss diaphragmatic hernia, poss Ventral hernia,poss open PMFSH Active Problems Active Problems: All Active Problems (Updated 02/27/23 @ 09:24 by Serenity Raphael RN) Insulin resistance (Acute) H. pylori infection (Acute) Vitamin D deficiency (Acute) Obesity (Acute) BMI 39.0-39.9,adult (Acute) Mood disorder due to known physiological condition, unspecified (Acute) BMI 36.0-36.9,adult (Acute) BMI 34.0-34.9,adult (Acute) Hyperlipidemia (Acute) DJD (degenerative joint disease) (Acute) GERD (gastroesophageal reflux disease) (Acute) Hypothyroidism (Acute) Morbid obesity (Acute) Past Medical History Medical History Anxiety Arthritis DJD (degenerative joint disease) GERD (gastroesophageal reflux disease) Lico's disease History of herniated intervertebral disc Hyperlipidemia Hypothyroidism Migraines Morbid obesity Numbness Sciatica Family History Family History Mother Diabetes Hypertension Father No problems noted. Son No problems noted. Son No problems noted. Daughter No problems noted. Surgical History Surgical History H/O Spinal surgery Hx of section Hx of cholecystectomy Social History Social History Are you a primary senior care specialist to a significant other at home: Yes Do you presently have visiting nurse or other home services: No Alcohol intake: never Patient Tobacco Use Status: Current everyday Tobacco user Tobacco use type: Cigarette Cigarettes Per Day: 5 Use of substances other than those prescribed or required for medical reasons: No Have you been hit, kicked, punched, or otherwise hurt by someone within the past year? If so, by whom?: No Are you DNR?: No Advance Directives: No Advance Directives Information Provided: No Advance Directives on File: No Recently lost weight without trying: No Eating poorly because of decreased appetite: No Nutrition Risks: No Nutritional Risk Patient : No : No Poor oral hygiene: No Meds Allergies Allergy/AdvReac Type Severity Reaction Status Date / Time diphenhydramine Allergy Mild Palpitation Verified 03/06/23 06:16 [From Jackyrios] s Home Medications Medication Instructions Recorded Confirmed Last Taken Type levothyroxine 100 mcg capsule 100 mcg PO DAILY 10/31/22 03/06/23 03/06/23 History Exam Exam Date and Time: March 04, 2023 1212 Height,Weight and Vital Signs: Height 5 ft Weight 81.647 kg Pertinent Lab Results Pertinent Lab Results: Laboratory Tests 02/28/23 10:53 Blood Type B Positive Antibody Screen NEGATIVE Laboratory Tests 02/28/23 02/28/23 10:58 10:58 WBC 6.1 Hgb 13.5 Hct 41.5 Plt Count 168 Sodium 139 Potassium 4.5 Chloride 110 H Carbon Dioxide 23 BUN 10 Creatinine 0.80 Narrative Narrative: EKG 11/2022 Vent. Rate : 079 BPM ? ? Atrial Rate : 079 BPM ?? P-R Int : 134 ms? QRS Dur : 074 ms ? ? QT Int : 372 ms ? ? ? P-R-T Axes : 017 013 008 degrees ?? QTc Int : 426 ms ? Normal sinus rhythm Normal ECG No previous ECGs available Assessment and Plan Assessment Anesthesia Assessment: Chart Reviewed Documented by User: Lani Beckham MD 03/06/23 08:04 [facility] Past Medical History Medical History Anxiety Arthritis DJD (degenerative joint disease) GERD (gastroesophageal reflux disease) Lico's disease History of herniated intervertebral disc Hyperlipidemia Hypothyroidism Migraines Morbid obesity Numbness Sciatica Family History Family History Mother Diabetes Hypertension Father No problems noted. Son No problems noted. Son No problems noted. Daughter No problems noted. Family history of problems with anesthesia: No Surgical History Surgical History H/O Spinal surgery Hx of section Hx of cholecystectomy History of Problems with Anesthesia: No Social History Social History Are you a primary senior care specialist to a significant other at home: Yes Do you presently have visiting nurse or other home services: No Alcohol intake: never Patient Tobacco Use Status: Current everyday Tobacco user Tobacco use type: Cigarette Cigarettes Per Day: 5 Use of substances other than those prescribed or required for medical reasons: No Have you been hit, kicked, punched, or otherwise hurt by someone within the past year? If so, by whom?: No Are you DNR?: No Advance Directives: No Advance Directives Information Provided: No Advance Directives on File: No Recently lost weight without trying: No Eating poorly because of decreased appetite: No Nutrition Risks: No Nutritional Risk Patient : No : No Poor oral hygiene: No Meds Allergies Allergy/AdvReac Type Severity Reaction Status Date / Time diphenhydramine Allergy Mild Palpitation Verified 03/06/23 06:16 [From Benadryeli] s Home Medications Medication Instructions Recorded Confirmed Last Taken Type levothyroxine 100 mcg capsule 100 mcg PO DAILY 10/31/22 03/06/23 03/06/23 History Exam Airway Mallampati Class: II TM Dist: >3cm Neck ROM: Full Heart: rrr Lungs: cta Assessment and Plan Assessment Anesthesia Assessment: Anesthesia Plan Discussed Final Anesthetic Review Family History of Problems with Anesthesia: No History of Problems with Anesthesia: No NPO: Yes ASA Class: III Final Preanesthetic Review: No Changes in Pt Med Stat, Meds/Allgs Chart Reviewed, Consent Obtained/Reviewed and Anes Risks/Benef Reviewed Patient Risk: Intermediate Procedure Risk: Intermediate Anesthetic Plan Anesthetic Plan: GA Disposition: Standard PACU
[2023-03-06] VITALS (12 sets, daily range): BP systolic 102–137; BP diastolic 67–99; PULSE 70–106; RESP 14–20; TEMP 35.5–36.7; O2SAT 96–100
[2023-03-06 06:30] LABS: UPreg QC Valid YES; Urine Pregnancy NEGATIVE (NEGATIVE)
[2023-03-06] MEDS: Lactated Ringers 1,000 ML 100 ML IVCONT ×2 (07:22→12:45)
[2023-03-06] MEDS: Lactated Ringers 1,000 ML 999 ML IV (07:23)
[2023-03-06] MEDS: Aprepitant 32 MG/4.4 ML VIAL IVPUSH (07:46)
--- NOTE | 2023-03-06 08:24 | PM.OP ---
Brief Operative Note Date of Service: 03/06/23 Pre-op diagnosis: Severe obesity with comorbidities (see below) Post-op diagnosis: same Procedure: INITIAL PATIENT BMI ON PRESENTATION AT OUR OFFICE: 40.1 kg/m2 LAST BMI BEFORE SURGERY: 34.3 kg/m2 COMORBIDITIES: hypothyroidism, GERD, back pain, hyperlipidemia, insulin resistance, liver steatosis ?The patient presented to the Weight Management Program with significant obesity that was negatively impacting the patient's comorbidities as listed above.? The program is a phased program with a special focus on preoperative medical weight management to promote substantial weight loss and prepare the patients for the second phase of the program: bariatric surgery. The patient participated in an intensive weekly lifestyle ?intervention and exercise program during which the patient ?has lost between the initial office visit and the last preoperative visit 33 lbs, or 15.54% of initial actual body weight. It was deemed appropriate for the patient to now have bariatric surgery. In light of the current Covid-19 pandemic and the well documented strong association of obesity and increased risk of worse outcomes if infected with Covid-19 (REFERENCES:https://pubmed.ncbi.nlm.nih.gov/95233096/,?https://pubmed.ncbi.nlm.nih.gov/08516795/), any delay in undergoing bariatric surgery may lead to the patient's worsening health condition and increased?risk of more severe Covid-19 disease if infected. In addition a recent?study from [facility] published in [employer] on 07/03/2021 ([email or web address]) found that, among patients with obesity, substantial weight loss achieved with surgery was associated with improved outcomes of COVID-19 infection. The findings suggest that obesity can be a modifiable risk factor for the severity of COVID-19 infection. In addition, the patient met the BMI-criteria for bariatric surgery based on the BMI on initial presentation. The patient should not be penalized for achieving such weight loss because ?it is not sustainable long-term without surgical intervention and it was achieved in preparation for bariatric surgery ?under my direction and based on my published research ([email or web address]).[email or web address] and?[email or web address].soard.org/article/[email or web address](89)51262-X/pdf) ?that a 10% preoperative weight loss improves long-term weight loss after surgery and reduces perioperative complications.? Insurance carriers such as [facility] have endorsed my recommendations ?and have included in their policies criteria to include a 10% preoperative weight loss requirement. PROCEDURE: Esophago-gastroscopy, laparoscopic sleeve gastrectomy and laparoscopic gastropexy INDICATIONS: This is a 43 year-old female who was electively scheduled for laparoscopic, possibly open sleeve gastrectomy. The risks and complications of the procedure were discussed with the patient in advance, particularly the possibility of ; pulmonary embolism; staple line leak; bleeding; GERD; cardiac, pulmonary, or renal complications; as well as long-term problems such as insufficient weight loss, vitamin deficiency, strictures, or ulcers. The patient understood all the risks, and was in agreement to proceed with surgery. DESCRIPTION OF PROCEDURE: After informed consent was obtained from the patient, the patient was given preoperative antibiotics, and was transferred to the operating room. After successful induction of general anesthesia, pneumatic compression devices were placed on both lower extremities. An upper endoscopy was performed next. The oropharynx and esophagus appeared to be within normal limits. There was no diaphragmatic hernia present consistent with the findings of the preoperative upper GI. The stomach was entered. Then after all fluid and air were suctioned and the stomach was fully decompressed, the scope was withdrawn and secured in the mid esophagus. The patient was then prepped and draped in the usual sterile manner, and abdominal access was established at the right upper quadrant with the Cody technique. A 12 mm blunt port was inserted, and the abdomen was insufflated with CO2 to a pressure of 15 mmHg. Under direct visualization, additional ports were placed, specifically two 5 mm Versi-step ports to the left upper quadrant, and a 5 mm Versi-Step port to the right upper quadrant. 1% lidocaine plain was used to infiltrate all port sites as well as all fascia defects. Following that, the patient was placed in a steep reverse Trendelenburg position. An additional 5 mm port was placed to the right flank for the Mediflex retractor that was used to retract the left lobe of the liver. The gastro-esophageal fat pad was opened with the ultrasonic device (Thunderbeat, Olympus) and the anterior esophagus and hiatus were exposed. The angle of His was opened with the ultrasonic device the fundus of the stomach from any diaphragmatic and splenic attachments. I then opened the gastrocolic ligament between the transverse colon and the greater curvature of the stomach with the ultrasonic device to enter the lesser sac and facilitate the ligation of the short gastric vessels. I started at a mid-point along the greater curvature and using the Thunderbeat, all short gastric vessels were divided all the way to the angle of His until the left pamela was completely dissected at its entirety. I then divided the gastro-colic ligament distally to a distance of about 3-4 cm proximal to the pylorus. There were extensive congenital adhesions between the pancreas and posterior gastric wall. Those were lysed completely with the ultrasonic device. Adhesiolysis took approximately 45 min to complete. The stomach was then divided transversely with one Endo DONAL-45 purple and four DONAL-60 articulating orange loads using the AEON stapler and loads. Every effort was made that the gastric sleeve had a tubular shape and an even caliber throughout. Once the sleeve resection was completed, the staple line of the gastric sleeve was reinforced with Hemoclips. The resected stomach was retrieved without difficulty from the Cody port. A gastropexy was then performed in order to prevent postoperative GERD and partial gastric volvulus. Several interrupted 2.0 Surgidac sutures were placed between the sleeve's staple line and the previously divided greater omentum and gastro-colic ligament using the Endo-Stitch device. ?An upper endoscopy was performed. There was no narrowing at the GE junction. The scope was easily advanced all the way to the pylorus which was clearly visualized. There was no narrowing anywhere and the sleeve's caliber was even throughout. The sleeve's staple line was inspected and there was no evidence of ischemia, bleeding or dehiscence. At that point the gastroscope was withdrawn from the patient?s mouth while we were decompressing the bowel and the stomach from any remaining air. I looked into the lesser sac to see how the sleeve was situating and it was situating well. There was no bleeding from the staple line, spleen, or short gastric vessels. The Mediflex retractor was removed, and the undersurface of the liver was inspected and there was no bleeding. The patient was placed in supine position. I closed the fascial defect of the 12 mm port site with a figure of eight #1 Polysorb suture. Then 30cc Ropivacaine plain with 10 mg of Dexamethasone were used to infiltrate the fascial closure as well as all skin incisions. A total of 7ml Zynrelef was applied in the Cody wound. At this point, the abdomen was deflated, all ports were removed under direct vision, and no bleeding was noted from any of the port sites. The skin incisions were irrigated with saline and were closed with 4-0 absorbable monofilament sutures. Steri-Strips and OpSites were used to cover all incisions. The patient was extubated and was transferred in stable condition to the recovery room for further care. I was present and performed all persaud parts of the procedure. Mr. Valentine was the clinical trial assistant. There were no residents to assist with this case. Westley Kelsey MD, PhD, FACS Surgeon: Partha Kelsey MD Anesthesia: GETA, local and other (TAP block and 7ml Zynrelef) Was an Accounting Manager Cpa used for this Procedure?: No Accounting Manager Cpa: Trenton Valentine Estimated blood loss (mL): 10 IV fluids (mL): 2,000 Urine output (mL): 0 (No White to record output) Pathology: other (Stomach) Condition: stable Disposition: PACU
--- NOTE | 2023-03-06 08:25 | PC.NURSE ---
Patient states that she only drank about 3 cups of bowel prep (Miralax mixed with water) due to it making her very constipated. Per her, bowel output is soft robles stool. Dr. Mejia and Dr. Valentine at bedside and made aware. No new orders at this time.
--- NOTE | 2023-03-06 10:55 | PM.DS ---
DS: Providers Provider Date of Service: 03/07/23 Date of admission: 03/06/23 06:06 Primary care physician: Betsy Waldrop MD DS: Summary Hospital Course Hospital Course: ADMITTING DIAGNOSIS: obesity, hypothyroid, HLD, DJD, anxiety ? DISCHARGE DIAGNOSIS: same, s/p laparoscopic sleeve gastrectomy ? PAST SURGICAL HISTORY: cesarian section, cholecystectomy ? PROCEDURE: upper endoscopy, laparoscopic sleeve gastrectomy ? DISCHARGE SUMMARY: ? History of Present Illness: ? The patient is a?43 year-old woman with a BMI of?40.1 kg/m2 and associated co-morbidities as described above. The patient had extensive work-up,lost?32.9 lbs preoperatively and was electively scheduled for laparoscopic, possible open sleeve gastrectomy and gastropexy. Risks and complications of the surgery were discussed with the patient in advance, particularly the possibility of , pulmonary embolism, anastomotic leak, bleeding, bowel injury, GERD, cardiac, renal or pulmonary complications. The patient understood all the risks and was in agreement with the surgical plan. ? Hospital Course: ? The patient underwent an uneventful laparoscopic sleeve gastrectomy with gastropexy on the day of admission. Postoperatively, the patient was transferred to the surgical floor. The patient received IV Acetaminophen and IV dilaudid for pain control. Patient was started on bariatric phase 1 diet POD #0. On postoperative day one, the patient was feeling well without nausea, vomiting, fevers, or tachycardia. The patient had some mild incisional pain and the abdomen was soft. ? On the morning of postoperative day one, the patient was continued on 1 ounce of water or ice every half hour. During the day, the patient did fairly well, having some incisional pain, but able to ambulate adequately and to tolerate liquids well. ? Since the patient is doing well, we decided that the patient was ready to be discharged. The patient was given instructions to follow-up with me next week and to call my office for any fever over 101, persistent abdominal pain, nausea, vomiting, GERD, symptoms of DVT such as calf tenderness, or leg swelling, or pulmonary embolism such as chest pain or shortness of breath. The patient was also instructed to drink 40-60 ounces of liquids per day using the 1-ounce cups. The patient had been given prescriptions for Tylenol for pain, Zofran prn for nausea, and pantoprazole and carafate previously. The patient was encouraged to ambulate and use the incentive spirometer. The patient was allowed to shower, but no baths, and encouraged to stay active at home. All of these instructions were given to the patient personally. All questions were answered and the patient understood all instructions, the instructions were also given to the patient in print. Time Spent with Patient Time attestation: Total time managing care of this patient today ____ minutes. Discharge coordination time: Less than 30 minutes Quality: Safe Use of Opioids Does Pt have an Active Cancer Diagnosis on the Problem List?: No Quality: Stroke Does the patient have a stroke diagnosis?: No Physical Exam Vital Signs: Vital Signs: Last Vital Signs Temp 97 F 03/06/23 10:51 Pulse 106 H 03/06/23 10:51 Resp 18 03/06/23 10:51 BP 113/80 03/06/23 10:51 Pulse Ox 99 03/06/23 10:51 O2 Del Method Simple Mask 03/06/23 10:51 O2 Flow Rate 8 03/06/23 10:51 BMI result Body Mass Index 35.2 DS: Data Data Completed and Pending Pending studies at discharge: Pending at discharge 03/06/23 09:53 Surgical [PTH] Routine Labs on day of discharge: Laboratory Results - last 24 hr 03/06/23 06:10 Urine Test NEGATIVE Discharge Plan Discharge Anticipated Discharge Date/Time: 03/07/23 09:57 Patient Disposition: Home, Self-Care Discharge Diagnosis: s/p laparoscopic sleeve gastrectomy Referrals: Betsy Waldrop MD [Primary Care Provider] - 1 Week Discharge Medications: Continued levothyroxine 100 mcg capsule 100 mcg PO DAILY pantoprazole 40 mg tablet,delayed release (DR/EC) 40 mg PO DAILY Qty: 30 2RF sucralfate 100 mg/mL suspension 10 ml PO BID Qty: 400 2RF ondansetron 4 mg tablet,disintegrating 4 mg PO Q12H Qty: 20 0RF Rx Instructions: Use only if you have nausea Discontinued cholecalciferol (vitamin D3) 125 mcg (5,000 unit) capsule 125 mcg PO DAILY Qty: 90 0RF Discharge Orders: Discharge Order (Routine); Ordered 03/07/23 Ordered By: Trenton Valentine Activity on Discharge: No heavy lifting Stand Alone Forms: Patient Portal Discharge page Care Plan Goals: weight loss Health Concerns: obesity Plan of Treatment: No tub baths, sex or returning to work until discussed at first post op appointment. No exercise, alcohol, tobacco or illegal drug use. Continue to use incentive spirometer hourly while awake. Walk in home for 5- 10 minutes every 2 hours during the first week. Follow all instructions in the bariatric handbook and call with any questions.Discharge Instructions 1. Please call your doctor or come back to the emergency room should any new symptoms arise. 2. You will receive a courtesy call from [facility] 24-48 hours after discharge. 3. Activity: abstain from alcohol, practice limited stair climbing, no bending, no driving, no exercise, no illicit substances, no lifting, no sex, no tub bath, no work. 4. Diet: continue as discussed with Dr. Kelsey. 5. Dressing Change/Wound Care: Your incision is covered by clear bandages and guaze underneath. If the area is tender, you may apply an ice pack for short intervals (no more than 20 minutes on, followed by at least 20 minutes off). Do not apply heat. Do not use creams, lotions, or topical antibiotics unless instructed to do so by your surgeon. These can cause infection or allergic reaction. 6. Call your doctor if: - Your temperature exceeds 101.5 F - You experience excessive pain or swelling - You have an unexpected reaction to medication - You have excessive bleeding - You experience continued vomiting/nausea - Your incision begins to separate - Your incision shows signs of infection such as increased redness, swelling, excessive pain, heat, or drainage (light blood or clear fluid is normal) 7. General instructions: No lifting greater than 5 lbs for the next 4 weeks[address] driving within 24 hours of taking narcotic pain medications. If you do not move your bowels in the next 2 days, please take milk of magnesia over the counter. Please follow the post op diet and do not advance your diet until you are seen in the office in about 2 weeks. Please walk around your home every hour or two to prevent blood clots from forming in your legs. You do not need to wake from sleeping to walk. Please sleep in a bed or couch to prevent kinking at the hips and knees. Please take your incentive spirometer (your lung strategy lead) home with you and use it for the next few days to prevent pneumonias. You may shower, no hot tubs, baths or swimming pools. Please call the office with any questions or concerns such as increasing abdominal pain, fever, chills, shortness of breath, chest pain, leg pain or swelling, or redness or drainage from your incisions. Please stay on stage 3 diet which includes sugar free clear liquids such as ice pops and jello and broth and crystal light. Avoid all carbonation. Please drink 3 protein shakes with at least 25-30 grams of protein daily or 3 of the Celebrate 4:1 shakes which can be purchased in our office. The Celebrate shakes have all of the bariatric vitamins you need if you consume these shakes. If you are drinking other protein shakes, you will need to purchase the Celebrate multivitamins and calcium that we provide in the office (they will provide all the vitamins you need). Please make sure you are consuming at least 40-60 ounces of water in addition to your 3 protein shakes daily. Do not hesitate to contact the office with any questions at . The patient's medical history has been reviewed and they are considered low risk for post op DVT and therefore DVT prophylaxis is not considered necessary. Travel after surgery was reviewed. The patient has not disclosed any travel plans during the first 30 days after surgery and they have been advised that within the first 30 days after surgery any bus, plane, train or car travel over 2 hours in duration is contraindicated due to the possibility of developing blood clots from immobility. Any travel, needs to include periods of ambulation of 10 minutes in duration every 2 hours.? The patient was instructed to discuss any plans for travel during this period with their bariatric surgeon. Assessment: stable s/p laparoscopic sleeve gastrectomy
[2023-03-06] MEDS: ondansetron HCL 4 MG/2 ML VIAL IVPUSH ×2 (11:14→16:16)
[2023-03-06 11:46] LABS: Hematocrit 40.9 % (37.0-47.0); Hemoglobin 12.8 g/dl (12.0-16.0)
[2023-03-06 12:05] LABS: Anion Gap 15 (12-20); Blood Urea Nitrogen 12 mg/dL (9-16); Calcium 8.4 mg/dL (8.4-10.2); Carbon Dioxide 19 mmol/L (22-29); Chloride 108 mmol/L (96-108); Creatinine Clr Calc Pharmacy 92.1; Estimated Glomerular Filt Rate > 60; Glucose Random 155 mg/dL (60-115); Potassium 3.6 mmol/L (3.3-5.1); Sodium 138 mmol/L (135-145)
[2023-03-06] MEDS: ceFAZolin Sodium/Dextrose,Iso 2 GM/50 ML PIGGYBACK IV (14:08)
[2023-03-06] MEDS: Acetaminophen 1,000 MG/100 ML PIGGYBACK 400 MG IV (19:02)
[2023-03-06] MEDS: Famotidine/PF 20 MG/2 ML VIAL IVPUSH (19:03)
[2023-03-06] MEDS: 0.9 % Sodium Chloride Flush 3 ML SYRINGE IVFLUSH (19:03)
[2023-03-07] MEDS: Lactated Ringers 1,000 ML 100 ML IVCONT (02:03)
[2023-03-07 03:21] VITALS: BP 120/79; PULSE 86; RESP 16; TEMP 36.4; O2SAT 97
[2023-03-07] MEDS: Acetaminophen 1,000 MG/100 ML PIGGYBACK 400 MG IV (05:18)
[2023-03-07 05:53] LABS: MANUAL DIFF FLAG NO
[2023-03-07 05:58] LABS: Basophils Percent Auto 0.1 % (0-2); Eosinophils Percent Auto 0.1 % (0-4); Hematocrit 36.2 % (37.0-47.0); Hemoglobin 11.7 g/dl (12.0-16.0); Imm Gran Abs Auto 0.05 X10*3/uL (0.00-0.03); Imm Gran Pct Auto 0.5 % (0.0-0.4); Mean Corpuscular HGB Conc 32.3 g/dl (31.0-35.0); Mean Corpuscular Volume 83.4 fL (80.0-98.0); Monocytes Absolute Auto 0.8 X10*3/uL (0.1-1.2); Monocytes Percent Auto 7.9 % (2-11); Neutrophils Absolute Auto 8.1 x10*3/uL (2.0-8.3); Neutrophils Percent Auto 81.4 % (45-73); Platelet Count 156 X10*3/uL (160-400); Red Blood Count 4.34 X10*6/uL (4.20-5.50); Red Cell Distribution Width 14.6 % (11.0-16.0); White Blood Count 9.9 X10*3/uL (4.8-10.8)
[2023-03-07 06:13] LABS: Anion Gap 10 (12-20); Blood Urea Nitrogen 8 mg/dL (9-16); Calcium 8.9 mg/dL (8.4-10.2); Carbon Dioxide 20 mmol/L (22-29); Chloride 110 mmol/L (96-108); Creatinine Clr Calc Pharmacy 110.2; Estimated Glomerular Filt Rate > 60; Glucose Random 93 mg/dL (60-115); Potassium 3.9 mmol/L (3.3-5.1); Sodium 136 mmol/L (135-145)
[2023-03-07] MEDS: Famotidine/PF 20 MG/2 ML VIAL IVPUSH (07:15)
[2023-03-07 07:27] VITALS: BP 130/67; PULSE 86; RESP 18; TEMP 36.4; O2SAT 96
--- NOTE | 2023-03-07 10:21 | MHC.CM.PN ---
PT REPORTS SHE LIVES AT HOME WITH HER S/O AND TWO YEAR OLD SON SHE THEN SAYS HER 24 YO DAUGHTER LIVES THERE TOO, BUT IS NOT INVOLVED IN MUCH AT HOME PT SAYS HER S/O WILL BE AT HOME WITH HER TODAY AND TOMORROW BUT THEN WILL RETURN TO WORK SHE IS WORRIED ABOUT CARING FOR HER 2 YO. 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
== END 2023-03-07 09:24 | disposition home or self-care (01) | DRG 403 ==
LOC: HO.SSSA 10:58 → HO.S3 11:10
PROVIDERS: Nurse Practitioner; Physician Assistant Surgical; Admitting Provider Surgery; PCP Family Medicine; Visit Provider Surgery
PROC: 0DB64Z3 Excision of Stomach, Percutaneous Endoscopic Approach, Vertical (ICD-10-PCS; CPT 43845; principal; 2023-03-06 08:10)
DX: E66.01 Morbid (severe) obesity due to excess calories (principal); K76.0 Fatty (change of) liver, not elsewhere classified; Q43.3 Congenital malformations of intestinal fixation; E06.3 Autoimmune thyroiditis; K21.9 Gastro-esophageal reflux disease without esophagitis; M54.9 Dorsalgia, unspecified; E78.5 Hyperlipidemia, unspecified; Z68.34 Body mass index [BMI] 34.0-34.9, adult; Z79.890 Hormone replacement therapy; Z79.899 Other long term (current) drug therapy
CPT/HCPCS: 36415; 80048; 81025; 85014; 85018; 85025; 86850; 86900; 86901; 88305; 88307; 88342; A4649; C9088; C9145; J0131; J0690; J1100; J1170; J2250; J2405; J2795; J3010

== ENCOUNTER → 2023-03-06 06:06 | Outpatient (BNV) | payer MEDICAID, SELFPAY | PROVIDERS: Admitting Provider Surgery; PCP Family Medicine; Visit Provider Surgery | DX: E66.9 Obesity, unspecified (principal); Z68.34 Body mass index [BMI] 34.0-34.9, adult | CPT/HCPCS: 43659; 43775 ==

== ENCOUNTER 2023-03-13 08:34 | Outpatient (AMB) | payer MEDICAID, SELFPAY ==
--- NOTE | 2023-03-13 08:49 | MHC.OFFVISWM ---
Intake VS Expanded 03/13/23 09:04 Height 5 ft 1 in Weight 176 lb 6.4 oz BMI 33.3 BP 101/66 Blood Pressure Location Rt brachial Blood Pressure Position Sitting Pulse 85 Pulse Source Pulse Oximeter Temp 96.7 F L Temperature Source Tympanic Pulse Oximetry 93 Oxygen Delivery Method Room Air Body Fat 70.8 Body Fat Percentage 40.1 Free Fat Mass 105.6 Muscle Mass 100.4 Visceral Mass 9.0 Water Mass 75.4 BMR 1,466 Intake Visit Reasons: (OV) 7 Days PO LSG 03/06/23 *Seeing Trenton @ 9AM Allergies diphenhydramine [From Benadryl] Allergy (Mild, Verified 03/06/23 06:16) Palpitations HPI HPI Comments History of Present Illness Details 43 yo female POD 7 s/p LSG on 03/06/23 does not like celebrate 4 in 1 1 scoop each x 3 32 oz additional water pos BM no pain PFSH Medical History Anxiety Arthritis DJD (degenerative joint disease) GERD (gastroesophageal reflux disease) Lico's disease History of herniated intervertebral disc Hyperlipidemia Hypothyroidism Migraines Morbid obesity Numbness Sciatica Surgical History H/O Spinal surgery Hx of section Hx of cholecystectomy Family History Mother Diabetes Hypertension Father No problems noted. Son No problems noted. Son No problems noted. Daughter No problems noted. Social History Household Members: Family Housing: Apartment Are you a primary healthcare customer service to a significant other at home: Yes Do you presently have visiting nurse or other home services: No Alcohol intake: never Patient Tobacco Use Status: Never used Tobacco Tobacco use type: Cigarette Cigarettes Per Day: 5 service: No Physical Exam Vital Signs: Last Vital Signs Temp 96.7 F L 03/13/23 09:04 Pulse 85 03/13/23 09:04 BP 101/66 03/13/23 09:04 Pulse Ox 93 03/13/23 09:04 Oxygen Delivery Method Room Air 03/13/23 09:04 BMI result Body Mass Index 33.3 GI Inspection: Yes incision (c/d/i) Assessment & Plan Assessment & Plan (1) S/P laparoscopic sleeve gastrectomy: Code(s): Z98.84 - Bariatric surgery status Plan: POD 7 s/p LSG on 03/06/[address] Kelsey Weight loss prior to surgery was 32.9 pounds or 15.4% TBWL. Original weight on 10/31/22 was 212.4 pounds and op weight was 179.5 pounds. Be sure to text Dr Kelsey exactly 1 week after surgery your weight from your home scale so he can adjust your meal plan. Continue meal plan until f/u w muller in 2 weeks May shower, no submersion in bath for another week Continue abdominal binder with activity and exercise for the next 2 weeks. Exercise prior to surgery was walking and stationary bike, may resume No abdominal exercises for 6 weeks post operatively Will be emailed link to post op video for review Reminded of the pace of drinking, 2 mL per minute, 1 oz/15 min. Coding Level of Care Code Global (33448) Diagnoses S/P laparoscopic sleeve gastrectomy Z98.84
[2023-03-13 09:04] VITALS: BP 101/66; PULSE 85; TEMP 35.9; O2SAT 93; BMI 33.3
== END 2023-03-13 09:26 | disposition home or self-care (01) ==
PROVIDERS: PCP Family Medicine; Visit Provider Physician Assistant Surgical
DX: Z98.84 Bariatric surgery status (principal)
CPT/HCPCS: 99024

== ENCOUNTER → 2023-03-13 08:34 | Outpatient (BNVA) | payer MEDICAID, SELFPAY | PROVIDERS: PCP Family Medicine; Visit Provider Physician Assistant Surgical ==

== ENCOUNTER 2023-04-04 11:29 | Outpatient (AMB) | payer MEDICAID, SELFPAY ==
--- NOTE | 2023-04-04 11:31 | MHC.OFFVISWM ---
Intake VS Expanded 04/04/23 11:37 Height 5 ft 1 in Weight 168 lb 3.2 oz BMI 31.8 BP 111/66 Blood Pressure Location Rt brachial Blood Pressure Position Sitting Pulse 98 Pulse Source Pulse Oximeter Temp 98.2 F Temperature Source Temporal Artery Scan Pulse Oximetry 99 Oxygen Delivery Method Room Air Body Fat 64.2 Body Fat Percentage 38.2 Free Fat Mass 103.8 Muscle Mass 98.6 Visceral Mass 8.0 Water Mass 74.0 BMR 1,434 Intake Visit Reasons: (OV) PO LSG 03/06/23 Behavioral Instructor Required: No Allergies diphenhydramine [From Benadryl] Allergy (Mild, Verified 04/04/23 11:40) Palpitations Medication List - Last Reconciled 04/04/23 by YANN Adam levothyroxine 100 mcg PO DAILY ondansetron 4 mg PO Q12H pantoprazole 40 mg PO DAILY sucralfate 10 mL PO BID HPI HPI Comments History of Present Illness Details This?a?43?yo female who is s/p LSG without hiatal hernia repair on?03/06/23. Presents for 1 month post op visit. Weight today is 168.2 pounds, with a BMI of 31.8. There has been a 44.2 pound weight loss,(initial weight 212.4 pounds) since starting the program on 10/31/22 reflecting a 20.8% total body weight loss and a weight loss of 11.3 pounds since surgery (operative weight 179.5 pounds) reflecting a 6.2% TBWL since surgery. No complaints of nausea, emesis, abdominal pain or reflux. Reports infrequent but normal bowel movements every 2-3 days and uses stool softeners regularly. c/o intermittent nausea, discussed w Dr Tatum and suggested change bar flavor, which she did although no sig change in nausea. Taking bariatric pal mvi w iron chewable in morning on empty stomach, does not like the bar at all. Present meal plan includes: Premier protein w almond milk 1 scoop, 10-12 pm 1 scoop, 2-4 pm 2 scoops, 5-7 pm drinking 64 oz water 2 hours per 16 oz bottle Exercise routine includes: bike, walk daily 400 calories PFSH Medical History Anxiety Arthritis DJD (degenerative joint disease) GERD (gastroesophageal reflux disease) Lico's disease History of herniated intervertebral disc Hyperlipidemia Hypothyroidism Migraines Morbid obesity Numbness Sciatica Surgical History H/O Spinal surgery Hx of section Hx of cholecystectomy Family History Mother Diabetes Hypertension Father No problems noted. Son No problems noted. Son No problems noted. Daughter No problems noted. Social History Household Members: Family Housing: Apartment Are you a primary healthcare manager to a significant other at home: Yes Do you presently have visiting nurse or other home services: No Alcohol intake: never Patient Tobacco Use Status: Never used Tobacco Tobacco use type: Cigarette Cigarettes Per Day: 5 service: No Physical Exam Vital Signs: Last Vital Signs Temp 98.2 F 04/04/23 11:37 Pulse 98 04/04/23 11:37 BP 111/66 04/04/23 11:37 Pulse Ox 99 04/04/23 11:37 Oxygen Delivery Method Room Air 04/04/23 11:37 BMI result Body Mass Index 31.8 GI Inspection: Yes incision (c/d/i) Assessment & Plan Assessment & Plan (1) Obesity: Code(s): E66.9 - Obesity, unspecified Plan: rtc 1 month change to celebrate MVI at night after third shake, add karissa+D BID try celebrate bar x 1 if likes will text me to adjust meal plan Continue exercise Discussed drinking water too fast Again discussed pace of drinking Coding Level of Care Code Global (69305) Diagnoses Obesity E66.9
[2023-04-04 11:37] VITALS: BP 111/66; PULSE 98; TEMP 36.8; O2SAT 99; BMI 31.8
== END 2023-04-04 12:07 | disposition home or self-care (01) ==
PROVIDERS: PCP Family Medicine; Visit Provider Physician Assistant Surgical
DX: E66.9 Obesity, unspecified (principal)
CPT/HCPCS: 99024

== ENCOUNTER → 2023-04-04 11:29 | Outpatient (BNVA) | payer MEDICAID, SELFPAY | PROVIDERS: PCP Family Medicine; Visit Provider Physician Assistant Surgical ==

== ENCOUNTER 2023-05-08 13:15 | Outpatient (AMB) | payer MEDICAID, SELFPAY ==
--- NOTE | 2023-05-08 13:19 | MHC.OFFVISWM ---
Intake VS Expanded 05/08/23 13:20 Height 5 ft 1 in Weight 153 lb 6.4 oz BMI 29.0 Intake Visit Reasons: (tV) PO LSG 03/06/23 Advertising Operations Coordinator Required: No Allergies diphenhydramine [From Benadryl] Allergy (Mild, Verified 04/04/23 11:40) Palpitations Medication List - Last Reconciled 05/08/23 by YANN Adam levothyroxine 100 mcg PO DAILY pantoprazole 40 mg PO DAILY sucralfate 10 mL PO BID HPI HPI Comments History of Present Illness Details This?a?43?yo female who is s/p LSG without hiatal hernia repair on?03/06/23. Presents for 2 month post op visit. Weight today is 153.4 pounds, with a BMI of 29. There has been a 59 pound weight loss,(initial weight 212.4 pounds) since starting the program on 10/31/22 reflecting a 27.7% total body weight loss and a weight loss of 26.1 pounds since surgery (operative weight 179.5 pounds) reflecting a 14.5% TBWL since surgery. No complaints of nausea, emesis, abdominal pain or reflux. Reports infrequent but normal bowel movements every 2-3 days and uses stool softeners regularly. No further nausea or constipation. Now taking celebrate MVI, does not like the protein bars, does not want to start food. she feels great and is very happy with her progress. She reports some hunger around 9 pm Present meal plan includes: Premier protein w almond milk 1 scoop, 10-12 pm 1 scoop, 2-4 pm 2 scoops, 5-7 pm drinking 32-40 oz water 2 hours per 16 oz bottle Exercise routine includes: bike, walk daily 400-500 calories and squats and aerobics PFSH Medical History Anxiety Arthritis DJD (degenerative joint disease) GERD (gastroesophageal reflux disease) Lico's disease History of herniated intervertebral disc Hyperlipidemia Hypothyroidism Migraines Morbid obesity Numbness Sciatica Surgical History H/O Spinal surgery Hx of section Hx of cholecystectomy Family History Mother Diabetes Hypertension Father No problems noted. Son No problems noted. Son No problems noted. Daughter No problems noted. Social History Household Members: Family Housing: Apartment Are you a primary manager intensive care unit to a significant other at home: Yes Do you presently have visiting nurse or other home services: No Alcohol intake: never Patient Tobacco Use Status: Never used Tobacco Tobacco use type: Cigarette Cigarettes Per Day: 5 service: No Assessment & Plan Assessment & Plan (1) S/P laparoscopic sleeve gastrectomy: Code(s): Z98.84 - Bariatric surgery status Plan: change meal plan to Premier protein 1 scoop each 10-12, 2-4, 5-7, 8-10 Continue exercise plan and rtc 1 month Much improved on celebrate MVI, no further nausea or constipation Telehealth Telehealth Location of provider rendering services: practice address Location of patient: address on file Patient Identification confirmed using: Name, : Yes Telehealth method: voice only Patient verbally consented to treatment: Yes Patient verbally consented to billing insurance company: Yes Patient informed of any privacy concerns related to visit: Yes Minutes spent on Phone/Video with Pt.: 15 Coding Level of Care Code Global (00162) Diagnoses S/P laparoscopic sleeve gastrectomy Z98.84
[2023-05-08 13:20] VITALS: BMI 29.0
== END 2023-05-08 13:41 | disposition home or self-care (01) ==
LOC: HO.HBS 13:15
PROVIDERS: PCP Family Medicine; Visit Provider Physician Assistant Surgical
DX: Z98.84 Bariatric surgery status (principal)
CPT/HCPCS: 99024

== ENCOUNTER → 2023-05-08 13:15 | Outpatient (BNVA) | payer MEDICAID, SELFPAY | PROVIDERS: PCP Family Medicine; Visit Provider Physician Assistant Surgical ==

== ENCOUNTER 2023-06-12 13:52 | Outpatient (AMB) | payer MEDICAID, SELFPAY ==
--- NOTE | 2023-06-12 13:22 | A.OFFVIS_ITS ---
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 Presents for 3 month post op visit. Weight today is 143.6 pounds, with a BMI of 27.1. There has been a 68.8 pound weight loss,(initial weight 212.4 pounds) since starting the program on 10/31/22 reflecting a 32.3% total body weight loss and a weight loss of 35.9 pounds since surgery (operative weight 179.5 pounds) reflecting a 20% TBWL since surgery. No complaints of nausea, emesis, abdominal pain or reflux. Reports infrequent but normal bowel movements every 2-3 days and uses stool softeners regularly. No further nausea or constipation. Now taking celebrate MVI, Meal plan was changed by Dr Kelsey. She states she is satisfied with her meal plan. She has great energy. Present meal plan includes: Premier protein 1/2 scoop in 8 oz almond milk 7-9 1/2 scoop 11-1 ZP bar 3-5 meal 6 pm, 4 forks protein 4 forks veg 1/2 scoop 8-10 drinking 48 oz water Exercise routine includes: daily bike, walk daily 400 calories [facility] Medical History Migraines Arthritis Lico's disease Anxiety Sciatica Numbness History of herniated intervertebral disc BMI 36.0-36.9,adult BMI 39.0-39.9,adult H. pylori infection Hyperlipidemia DJD (degenerative joint disease) GERD (gastroesophageal reflux disease) Hypothyroidism Morbid obesity Surgical History H/O Spinal surgery Hx of section Hx of cholecystectomy Family History Mother Diabetes Hypertension Father No problems noted. Son No problems noted. Son No problems noted. Daughter No problems noted. Social History Household Members: Family Housing: Apartment Are you a primary child care lead teacher to a significant other at home: Yes Do you presently have visiting nurse or other home services: No Alcohol intake: never Patient Tobacco Use Status: Never used Tobacco Tobacco use type: Cigarette Cigarettes Per Day: 5 service: No Review of Systems Const All systems reviewed & are unremarkable except as noted in HPI and below Assessment & Plan Assessment & Plan (1) Overweight (BMI 25.0-29.9): Code(s): E66.3 - Overweight Plan: Patient is very satisfied with her current meal plan. She will continue and continue to text her weight. She is exercising appropriately and she is overall very satisfied with her current condition. Return to clinic 6 weeks. Telehealth Telehealth Location of provider rendering services: practice address Location of patient: address on file Patient Identification confirmed using: Name, : Yes Telehealth method: voice only Patient verbally consented to treatment: Yes Patient verbally consented to billing insurance company: Yes Patient informed of any privacy concerns related to visit: Yes Minutes spent on Phone/Video with Pt.: 20 Coding Level of Care Code Tele Est Pt Level 3 (85483) Diagnoses Overweight (BMI 25.0-29.9) E66.3 Time Spent (min) 25
[2023-06-12 13:29] VITALS: BMI 27.1
== END 2023-06-12 13:55 | disposition home or self-care (01) ==
LOC: HO.HBS 13:52
PROVIDERS: PCP Family Medicine; Visit Provider Physician Assistant Surgical
DX: E66.3 Overweight (principal)
CPT/HCPCS: 99213

== ENCOUNTER → 2023-06-12 13:52 | Outpatient (BNVA) | payer MEDICAID, SELFPAY | PROVIDERS: PCP Family Medicine; Visit Provider Physician Assistant Surgical ==

== ENCOUNTER 2023-08-12 08:37 | Outpatient (AMB) | payer MEDICAID, SELFPAY ==
[2023-08-12 08:23] VITALS: BMI 24.5
--- NOTE | 2023-08-12 08:23 | MHC.OFFVISWM ---
Intake VS Expanded 08/12/23 08:23 Height 5 ft 1 in Weight 129 lb 9.6 oz BMI 24.5 Body Fat % 29 Body Fat Mass 37.5 Fat Free Mass 92 Visceral Fat Rating 8 Body Water % 48.7 Body Water Mass 63.1 Muscle Mass/Score 86.4 Basal Metabolic Rate/Score 1,280 Intake Visit Reasons: VIDEO PO LSG 03/06/23 Allergies diphenhydramine [From Benadryl] Allergy (Mild, Verified 04/04/23 11:40) Palpitations HPI HPI Comments History of Present Illness Details This?a?43?yo female who is s/p LSG without hiatal hernia repair on?03/06/23. Presents for 5 month post op visit. Weight today is 129.6 pounds, with a BMI of 24.5. There has been a 82.8 pound weight loss,(initial weight 212.4 pounds) since starting the program on 10/31/22 reflecting a 38.9% total body weight loss and a weight loss of 49.9 pounds since surgery (operative weight 179.5 pounds) reflecting a 27.7% TBWL since surgery. No complaints of nausea, emesis, abdominal pain or reflux. Reports infrequent but normal bowel movements every 2-3 days and uses stool softeners regularly. No further nausea or constipation. Now taking celebrate MVI, She reports intermittent lightheadedness, mostly when she bends over. She is happy with her current meal plan and does not want to change it. She states her goal is to reach 120 pounds. She has extra skin of her thighs and under her belly. She has had several rashes to under her abdomen and thigh. She has difficulty wearing clothes and has to wear special clothes to prevent chafing between her thighs. She has had to shower multiple times and applied powders with resolution but then recurrance. Present meal plan includes: Premier protein 1/2 scoop in 8 oz almond milk 7-9 1/2 scoop 11-1 ZP bar 3-5 meal 6 pm, 4 forks protein 4 forks veg 1/2 scoop 8-10 drinking 48 oz water Exercise routine includes: bike, walk 5 x per week 400 calories [facility] Medical History Migraines Arthritis Lico's disease Anxiety Sciatica Numbness History of herniated intervertebral disc BMI 36.0-36.9,adult BMI 39.0-39.9,adult H. pylori infection Hyperlipidemia DJD (degenerative joint disease) GERD (gastroesophageal reflux disease) Hypothyroidism Morbid obesity Surgical History H/O Spinal surgery Hx of section Hx of cholecystectomy Family History Mother Diabetes Hypertension Father No problems noted. Son No problems noted. Son No problems noted. Daughter No problems noted. Social History Household Members: Family Housing: Apartment Are you a primary wound care nurse to a significant other at home: Yes Do you presently have visiting nurse or other home services: No Alcohol intake: never Patient Tobacco Use Status: Never used Tobacco Tobacco use type: Cigarette Cigarettes Per Day: 5 service: No Review of Systems Const All systems reviewed & are unremarkable except as noted in HPI and below Assessment & Plan Assessment & Plan (1) S/P laparoscopic sleeve gastrectomy: Code(s): Z98.84 - Bariatric surgery status Plan: She wants to keep her meal plan the same and she was encouraged to increase water to 64 oz oz daily and will also order 6 month labs to be done prior to next appt. (2) Excess skin: Code(s): L98.7 - Excessive and redundant skin and subcutaneous tissue Plan: Patient complains of excess skin of the thighs and abdomen she has had rashes and pain to the thighs because of rubbing. She has had to wear additional clothing to prevent skin chafing. It has affected her activities of daily living as she does have difficulty with clothing fitting. We will prescribe clotrimazole and monitor closely. Additionally, she will return to the office in approximately 1 month. Orders: Orders Insulin Today E03.9 - Hypothyroidism, unspecified, E55.9 - Vitamin D deficiency, unspecified, E78.5 - Hyperlipidemia, unspecified, E88.81 - Metabolic syndrome and other insulin resistance, Z98.84 - Bariatric surgery status Hemoglobin A1c Today E03.9 - Hypothyroidism, unspecified, E55.9 - Vitamin D deficiency, unspecified, E78.5 - Hyperlipidemia, unspecified, E88.81 - Metabolic syndrome and other insulin resistance, Z98.84 - Bariatric surgery status Complete Blood Count Auto Diff Today E03.9 - Hypothyroidism, unspecified, E55.9 - Vitamin D deficiency, unspecified, E78.5 - Hyperlipidemia, unspecified, E88.81 - Metabolic syndrome and other insulin resistance, Z98.84 - Bariatric surgery status Zinc Today E03.9 - Hypothyroidism, unspecified, E55.9 - Vitamin D deficiency, unspecified, E78.5 - Hyperlipidemia, unspecified, E88.81 - Metabolic syndrome and other insulin resistance, Z98.84 - Bariatric surgery status Vitamin D 25-OH Total Today E03.9 - Hypothyroidism, unspecified, E55.9 - Vitamin D deficiency, unspecified, E78.5 - Hyperlipidemia, unspecified, E88.81 - Metabolic syndrome and other insulin resistance, Z98.84 - Bariatric surgery status Basic Metabolic Panel Today E03.9 - Hypothyroidism, unspecified, E55.9 - Vitamin D deficiency, unspecified, E78.5 - Hyperlipidemia, unspecified, E88.81 - Metabolic syndrome and other insulin resistance, Z98.84 - Bariatric surgery status Lipid Panel Today E03.9 - Hypothyroidism, unspecified, E55.9 - Vitamin D deficiency, unspecified, E78.5 - Hyperlipidemia, unspecified, E88.81 - Metabolic syndrome and other insulin resistance, Z98.84 - Bariatric surgery status IRON PROFILE Today E03.9 - Hypothyroidism, unspecified, E55.9 - Vitamin D deficiency, unspecified, E78.5 - Hyperlipidemia, unspecified, E88.81 - Metabolic syndrome and other insulin resistance, Z98.84 - Bariatric surgery status Vitamin B12 and Folate Today E03.9 - Hypothyroidism, unspecified, E55.9 - Vitamin D deficiency, unspecified, E78.5 - Hyperlipidemia, unspecified, E88.81 - Metabolic syndrome and other insulin resistance, Z98.84 - Bariatric surgery status C Reactive Protein Today E03.9 - Hypothyroidism, unspecified, E55.9 - Vitamin D deficiency, unspecified, E78.5 - Hyperlipidemia, unspecified, E88.81 - Metabolic syndrome and other insulin resistance, Z98.84 - Bariatric surgery status Vitamin B1 Today E03.9 - Hypothyroidism, unspecified, E55.9 - Vitamin D deficiency, unspecified, E78.5 - Hyperlipidemia, unspecified, E88.81 - Metabolic syndrome and other insulin resistance, Z98.84 - Bariatric surgery status Vitamin A Today E03.9 - Hypothyroidism, unspecified, E55.9 - Vitamin D deficiency, unspecified, E78.5 - Hyperlipidemia, unspecified, E88.81 - Metabolic syndrome and other insulin resistance, Z98.84 - Bariatric surgery status TSH reflex Free T4 Today E03.9 - Hypothyroidism, unspecified, E55.9 - Vitamin D deficiency, unspecified, E78.5 - Hyperlipidemia, unspecified, E88.81 - Metabolic syndrome and other insulin resistance, Z98.84 - Bariatric surgery status Ferritin Today E03.9 - Hypothyroidism, unspecified, E55.9 - Vitamin D deficiency, unspecified, E78.5 - Hyperlipidemia, unspecified, E88.81 - Metabolic syndrome and other insulin resistance, Z98.84 - Bariatric surgery status Medications: New clotrimazole 1% (Antifungal (clotrimazole)) 1 appl topical BID 45 grams 4RF Telehealth Telehealth Location of provider rendering services: practice address Location of patient: address on file Patient Identification confirmed using: Name, : Yes Telehealth method: voice only Patient verbally consented to treatment: Yes Patient verbally consented to billing insurance company: Yes Patient informed of any privacy concerns related to visit: Yes Minutes spent on Phone/Video with Pt.: 15 Coding Level of Care Code Tele Est Pt Level 3 (25712) Diagnoses S/P laparoscopic sleeve gastrectomy Z98.84 Excess skin L98.7 Time Spent (min) 22
== END 2023-08-12 08:42 | disposition home or self-care (01) ==
LOC: HO.HBS 08:37
PROVIDERS: PCP Family Medicine; Visit Provider Physician Assistant Surgical
DX: L98.7 Excessive and redundant skin and subcutaneous tissue (principal); Z90.3 Acquired absence of stomach [part of]; Z98.84 Bariatric surgery status
CPT/HCPCS: 99213

== ENCOUNTER → 2023-08-12 08:37 | Outpatient (BNVA) | payer MEDICAID, SELFPAY | PROVIDERS: PCP Family Medicine; Visit Provider Physician Assistant Surgical | DX: Z98.84 Bariatric surgery status (principal); E55.9 Vitamin D deficiency, unspecified; E78.5 Hyperlipidemia, unspecified; E03.9 Hypothyroidism, unspecified ==

== ENCOUNTER 2023-10-15 13:20 | Outpatient (AMB) | payer MEDICAID, SELFPAY ==
--- NOTE | 2023-10-15 13:34 | MHC.OFFVISWM ---
Intake VS Expanded 10/15/23 13:47 BP 111/69 Blood Pressure Location Rt brachial Blood Pressure Position Sitting Pulse 100 Pulse Source Pulse Oximeter Temp 97.5 F Temperature Source Temporal Artery Scan Pulse Oximetry 99 Oxygen Delivery Method Room Air Height 5 ft 1 in Weight 128 lb BMI 24.2 Body Fat % 22.8 Body Fat Mass 29.2 Fat Free Mass 98.8 Visceral Fat Rating 4.0 Body Water % 55.0 Body Water Mass 70.4 Muscle Mass/Score 93.6 Basal Metabolic Rate/Score 1,314 Intake Visit Reasons: (Ov) PO LSG 03/06/23 Allergies diphenhydramine [From Benadryl] Allergy (Mild, Verified 10/15/23 13:35) Palpitations HPI HPI Comments History of Present Illness Details This?a?43?yo femal e who is s/p LSG w ithout hiatal rex ia repair on?. Presents for 7 month post op vis it. Weight today i s 128 pounds, with a BMI of 24.2. T here has been a 84 .4 pound weight lo ss,(initial weight 212.4 pounds) sin ce starting the pr ogram on 10/31/22 r eflecting a 39.7% total body weight loss and a weight loss of 51.5 pound s since surgery (o perative weight 17 9.5 pounds) reflec ting a 28.6% TBWL since surgery. No complaints of maria e sea, emesis, abdom inal pain or reflu x. Reports infrequ ent but normal bow el movements every 2-3 days. No fur ther nausea or con stipation. Now ta katherine celebrate MVI , She states her g oal is to reach 12 0 pounds. She has extra skin of her thighs and under her belly. She coates s had several rash es to under her ab domen and thigh. She has difficulty wearing clothes a nd has to wear spe cial clothes to pr event chafing betw een her thighs. S he has had to show er multiple times and applied powder s with resolution but then recurrenc e. Stopped the bar due to a cavit y due a month ago, wants to stop the shakes except for one shake in the morning. Present meal plan include s: Premier protei n 1/2 scoop in 8 oz almond milk 7- 9 1/2 scoop 11-1 meal 6 pm, 4 forks protein 4 forks v eg 1/2 scoop 8-[address] Exercise rou maida includes: bik e, walk 5 x per we ek 500-600 calorie s Any post op complications: none PAOLA: never DM : never HTN: never Hyperlipidemia: i mproved GERD:?0-5 scale ??0 = no symptoms ??1 = symptoms notice able but not bothe rsome 2 =symptoms bothersome but no t daily ? 3 = symp toms bothersome an d daily 4 = sym ptoms affect daily activities 5 = s ymptoms are incapa citating, unable t o do daily activit ies ? How bad is the heartburn: 0 ? Heartburn while lying down: 0 ? He artburn when stand ing up: 0 ? Heartb urn after meals: 0 0 ? Does heartburn change your diet: 0 ? Does heartbur n wake you up from sleep: 0 ? Do you have difficulty s wallowin ? Do you have pain with swallowin ? I f you take medicin e for your reflux, does this affect your daily life: 0 Satisfaction wit h present conditio n - satisfied or n ot satisfied: sat isfied [facility] Medical History Migraines Arthritis Lico's disease Anxiety Sciatica Numbness History of herniated intervertebral disc BMI 36.0-36.9,adult BMI 39.0-39.9,adult H. pylori infection Hyperlipidemia DJD (degenerative joint disease) GERD (gastroesophageal reflux disease) Hypothyroidism Morbid obesity Surgical History H/O Spinal surgery Hx of section Hx of cholecystectomy Family History Mother Diabetes Hypertension Father No problems noted. Son No problems noted. Son No problems noted. Daughter No problems noted. Social History (Updated 10/15/23 @ 13:36 by Sahra Queen CMA) Household Members: Family Housing: Apartment Are you a primary health care specialist to a significant other at home: Yes Do you presently have visiting nurse or other home services: No Alcohol intake: never Patient Tobacco Use Status: Current everyday Tobacco user Tobacco use type: Cigarette Cigarettes Per Day: 4 service: No Physical Exam Const General: healthy appearing and no acute distress Resp Effort & Inspection: normal respiratory effort Auscultation: clear to auscultation bilaterally Cardio Rate: regular rate Rhythm: regular rhythm GI Auscultation: normal bowel sounds Skin Other: Excess skin of the abdomen with no active rash under the pannus, grade 1-2 Extrem General: Yes normal to inspection Assessment & Plan Assessment & Plan (1) S/P laparoscopic sleeve gastrectomy: Code(s): Z98.84 - Bariatric surgery status Plan: Patient wishes to change her meal plan. She is willing to continue with Premier protein shake in the morning. Premier protein shake, 1 scoop in 8 oz of almond milk, Meal with 6 forks of protein and 5 forks of vegetables, x2. Continue exercise. Encouraged to get labs which were ordered in August. Return to clinic for 9 month postop appointment in December and then 1 year postop appointment in March Coding Level of Care Code Est Pt Level 3 (46547) Diagnoses S/P laparoscopic sleeve gastrectomy Z98.84
[2023-10-15 13:47] VITALS: BP 111/69; PULSE 100; TEMP 36.4; O2SAT 99; BMI 24.2
== END 2023-10-15 14:07 | disposition home or self-care (01) ==
PROVIDERS: PCP Family Medicine; Visit Provider Physician Assistant Surgical
DX: L98.7 Excessive and redundant skin and subcutaneous tissue (principal); Z90.3 Acquired absence of stomach [part of]; Z98.84 Bariatric surgery status
CPT/HCPCS: 99213

== ENCOUNTER → 2023-10-15 13:20 | Outpatient (BNVA) | payer MEDICAID, SELFPAY | PROVIDERS: PCP Family Medicine; Visit Provider Physician Assistant Surgical | DX: Z98.84 Bariatric surgery status (principal) | CPT/HCPCS: 99212 ==

== ENCOUNTER 2023-12-16 09:56 | Outpatient (AMB) | payer MEDICAID, SELFPAY ==
[2023-12-16 08:19] VITALS: BMI 21.8
--- NOTE | 2023-12-16 08:19 | MHC.OFFVISWM ---
VS Expanded 12/16/23 08:19 Height 5 ft 1 in Weight 115 lb 8 oz BMI 21.8 Body Fat % 24.9 Body Fat Mass 28.8 Fat Free Mass 87 Visceral Fat Rating 5 Body Water % 51.5 Body Water Mass 59.6 Muscle Mass/Score 81.8 Basal Metabolic Rate/Score 1,219 Intake Visit Reasons: (TV) PO LSG 03/06/23 Allergies diphenhydramine [From Benadryl] Allergy (Mild, Verified 10/15/23 13:35) Palpitations HPI Comments Details: This?a?43?yo female who is s/p LSG without hiatal hernia repair on?03/06/23. Presents for 10 month post op visit. Weight today is 115.8 pounds, with a BMI of 21.8. There has been a 96.6 pound weight loss,(initial weight 212.4 pounds) since starting the program on 10/31/22 reflecting a 45.4% total body weight loss and a weight loss of 63.7 pounds since surgery (operative weight 179.5 pounds) reflecting a 35.4% TBWL since surgery. No complaints of nausea, emesis, abdominal pain or reflux. Reports infrequent but normal bowel movements every 2-3 days and uses stool softeners regularly. taking bariatric mvi daily No further nausea or constipation. She is happy with her current meal plan and does not want to change it. She has extra skin of her thighs and under her belly. She has had several rashes to under her abdomen and thigh. She has difficulty wearing clothes and has to wear special clothes to prevent chafing between her thighs. She has had to shower multiple times and applied powders with resolution but then recurrence. Still has not gotten labs that were ordered in August. Present meal plan includes: Premier protein Premier protein shake, 1 scoop in 8 oz of almond milk, Meal with 4 forks of protein and 4 forks of vegetables, x2. drinking 48 oz water Exercise routine includes: walk 5 miles daily [facility] Medical History Migraines Arthritis Lico's disease Anxiety Sciatica Numbness History of herniated intervertebral disc BMI 36.0-36.9,adult BMI 39.0-39.9,adult H. pylori infection Hyperlipidemia DJD (degenerative joint disease) GERD (gastroesophageal reflux disease) Hypothyroidism Morbid obesity Surgical History H/O Spinal surgery Hx of section Hx of cholecystectomy Family History Mother Diabetes Hypertension Father No problems noted. Son No problems noted. Son No problems noted. Daughter No problems noted. Social History Household Members: Family Housing: Apartment Are you a primary skin care specialist to a significant other at home: Yes Do you presently have visiting nurse or other home services: No Alcohol intake: never Patient Tobacco Use Status: Current everyday Tobacco user Tobacco use type: Cigarette Cigarettes Per Day: 4 service: No Physical Exam Vital Signs: BMI result Body Mass Index 21.8 Telehealth Telehealth Telehealth Platform: Telephone Location of provider rendering services: practice address Location of patient: address on file Patient Identification confirmed using: Name, : Yes Telehealth method: voice only Patient verbally consented to treatment: Yes Patient verbally consented to billing insurance company: Yes Patient informed of any privacy concerns related to visit: Yes Minutes spent on Phone/Video with Pt.: 20 Assessment & Plan Assessment & Plan (1) S/P laparoscopic sleeve gastrectomy: Code(s): Z98.84 - Bariatric surgery status Category: Surgical Plan: Overall patient is doing well. We have recommended increasing her meal plan to 2 scoops in her shake of Premier protein and 2 meals. She continues to exercise and does have difficulty with excess skin. We will have her return to the office for an in-person appointment at her 1 year postop date. Again reminded to get labs done that were ordered in August. (2) Excess skin: Code(s): L98.7 - Excessive and redundant skin and subcutaneous tissue Category: Medical Plan: Patient has lost a tremendous amount of weight and has had multiple recurrent rashes about her thighs and abdomen. We will send clotrimazole to [facility] per her request. Her insurance requires 18 months postoperative follow-up prior to approval for any skin removal surgery and we will continue to follow her closely. Medications: Refilled clotrimazole 1% (Antifungal (clotrimazole)) 1 appl topical BID 45 grams 4RF
== END 2023-12-16 09:56 | disposition home or self-care (01) ==
LOC: HO.HBS 09:56
PROVIDERS: PCP Family Medicine; Visit Provider Physician Assistant Surgical
DX: L98.7 Excessive and redundant skin and subcutaneous tissue (principal); Z98.84 Bariatric surgery status
CPT/HCPCS: 99213

== ENCOUNTER → 2023-12-16 09:56 | Outpatient (BNVA) | payer MEDICAID, SELFPAY | PROVIDERS: PCP Family Medicine; Visit Provider Physician Assistant Surgical | DX: Z98.84 Bariatric surgery status (principal); L98.7 Excessive and redundant skin and subcutaneous tissue ==

== ENCOUNTER 2023-12-17 08:56 | Outpatient (REF) | payer MEDICAID, SELFPAY ==
[2023-12-17 09:15] LABS: MANUAL DIFF FLAG NO
[2023-12-17 10:12] LABS: Basophils Absolute Auto 0.1 X10*3/uL (0.0-0.2); Basophils Percent Auto 0.8 % (0-2); Eosinophils Absolute Auto 0.1 X10*3/uL (0.0-0.4); Eosinophils Percent Auto 1.6 % (0-4); Hematocrit 37.2 % (37.0-47.0); Hemoglobin 11.6 g/dl (12.0-16.0); Imm Gran Abs Auto 0.01 X10*3/uL (0.00-0.03); Imm Gran Pct Auto 0.2 % (0.0-0.4); Lymphocytes Absolute Auto 1.7 X10*3/uL (1.2-4.9); Mean Corpuscular HGB Conc 31.2 g/dl (31.0-35.0); Mean Corpuscular Hemoglobin 24.6 pg (27.0-33.0); Mean Corpuscular Volume 78.8 fL (80.0-98.0); Mean Platelet Volume 11.5 fL (9.4-12.3); Monocytes Absolute Auto 0.5 X10*3/uL (0.1-1.2); Monocytes Percent Auto 7.8 % (2-11); Neutrophils Absolute Auto 4.1 x10*3/uL (2.0-8.3); Neutrophils Percent Auto 63.6 % (45-73); Platelet Count 175 X10*3/uL (160-400); Red Blood Count 4.72 X10*6/uL (4.20-5.50); Red Cell Distribution Width 14.8 % (11.0-16.0); White Blood Count 6.4 X10*3/uL (4.8-10.8)
[2023-12-17 10:31] LABS: Estimated Average Glucose 97 mg/dL
[2023-12-17 11:31] LABS: Anion Gap 10 (12-20); C Reactive Protein < 0.04 mg/dL (< or = 0.50); Calcium 9.3 mg/dL (8.4-10.2); Carbon Dioxide 24 mmol/L (22-29); Chloride 108 mmol/L (96-108); Cholesterol 149 mg/dL (<200); Estimated Glomerular Filt Rate > 60; Folate > 20.0 ng/mL (> or = 4.0); Glucose Random 73 mg/dL (60-115); HDL Cholesterol 56 mg/dL (>40); Iron 50 mcg/dL (30-160); LDL Cholesterol Calculated 83 mg/dL (<100); Percent Iron Saturation 14 % (15-50); Sodium 138 mmol/L (135-145); Total Iron Binding Capacity 367 mcg/dL (228-428); Triglycerides 53 mg/dL (<150); Unsaturated Iron Binding 317 ug/dL; Vitamin B12 527 pg/mL (200-900)
[2023-12-17 11:44] LABS: Ferritin 5 ng/mL (10-250); Insulin 5 uU/mL (2-29); Vitamin D 25-OH Total 41.1 ng/mL (>30)
[2023-12-17 11:50] LABS: Blood Urea Nitrogen 12 mg/dL (9-16)
[2023-12-20 00:48] LABS: Zinc 93 mcg/dL (60-130)
[2023-12-20 23:38] LABS: Vitamin A 40 mcg/dL (38-98)
[2023-12-24 15:09] LABS: Vitamin B1 7 nmol/L (8-30)
== END 2023-12-17 08:57 | disposition home or self-care (01) ==
LOC: HO.LAB 08:56
PROVIDERS: PCP Family Medicine; Visit Provider Physician Assistant Surgical
DX: E55.9 Vitamin D deficiency, unspecified (principal); E88.810 Metabolic syndrome; E78.5 Hyperlipidemia, unspecified; E03.9 Hypothyroidism, unspecified; Z98.84 Bariatric surgery status
CPT/HCPCS: 36415; 80048; 80061; 82306; 82607; 82728; 82746; 83036; 83525; 83540; 84425; 84443; 84590; 84630; 85025; 86140

== ENCOUNTER 2024-02-04 19:17 | Outpatient (REF) | payer MEDICAID, SELFPAY ==
[2024-02-07 10:36] LABS: HPV mRNA E6/E7 rflx NOT DETECTED
== END 2024-02-04 19:18 | disposition home or self-care (01) ==
LOC: HO.CHCLNP 19:17
PROVIDERS: Visit Provider Family Medicine
DX: Z12.4 Encounter for screening for malignant neoplasm of cervix (principal)
CPT/HCPCS: 36415; 87624; 88175

== ENCOUNTER 2024-03-12 15:14 | Outpatient (AMB) | payer MEDICAID, SELFPAY ==
--- NOTE | 2024-03-12 15:20 | A.OFFVIS_ITS ---
VS Expanded 03/12/24 15:27 BP 101/61 Blood Pressure Location Rt brachial Blood Pressure Position Standing Pulse 91 Pulse Source Pulse Oximeter Temp 97.3 F Temperature Source Temporal Artery Scan Pulse Oximetry 99 Oxygen Delivery Method Room Air Height 5 ft 1 in Weight 120 lb 3.2 oz BMI 22.7 Body Fat % 21.7 Body Fat Mass 26.0 Fat Free Mass 94.2 Visceral Fat Rating 3.0 Body Water % 55.8 Body Water Mass 67.0 Muscle Mass/Score 89.2 Basal Metabolic Rate/Score 1,254 Intake Visit Reasons: (OV) PO LSG 03/06/23 Allergies diphenhydramine [From Benadryl] Allergy (Mild, Verified 03/12/24 15:27) Palpitations HPI Comments Details: This?a?44?yo female who is s/p LSG without hiatal hernia repair on?03/06/23. Presents for 1 year post op visit. Weight today is 120.2 pounds, with a BMI of 22.7. There has been a 92.2 pound weight loss,(initial weight 212.4 pounds) since starting the program on 10/31/22 reflecting a 43.4% total body weight loss and a weight loss of 59.3 pounds since surgery (operative weight 179.5 pounds) reflecting a 33% TBWL since surgery. No complaints of nausea, emesis, abdominal pain or reflux. Reports infrequent but normal bowel movements every 2-3 days and uses stool softeners regularly. taking bariatric mvi daily No further nausea or constipation. She is happy with her current meal plan and does not want to change it. She has extra skin of her thighs and under her belly. She has had several rashes to under her abdomen and thigh. She has difficulty wearing clothes and has to wear special clothes to prevent chafing between her thighs. She has had to shower multiple times and applied powders with resolution but then recurrence. Also taking MVI daily Labs reveal low TIBC and B1 vitamin, these have been supplemented. Sometimes not doing the Premier protein shake and using a [place] yogurt. Present meal plan includes: Premier protein Premier protein shake, 2 scoop in 8 oz of almond milk, Meal with 4 forks of protein and 4 forks of vegetables, x 2. drinking 64 oz water Exercise routine includes: walk 5 miles daily Any post op complications: None PAOLA: Never DM: Never HTN: Never Hyperlipidemia: Resolved GERD:?0-5 scale ??0 = no symptoms ??1 = symptoms noticeable but not bothersome 2 =symptoms bothersome but not daily ? 3 = symptoms bothersome and daily 4 = symptoms affect daily activities 5 = symptoms are incapacitating, unable to do daily activities ? How bad is the heartburn: 0 ? Heartburn while lying down: 0 ? Heartburn when standing up: 0 ? Heartburn after meals: 0 ? Does heartburn change your diet: 0 ? Does heartburn wake you up from sleep: 0 ? Do you have difficulty swallowin ? Do you have pain with swallowin ? If you take medicine for your reflux, does this affect your daily life: 0 Satisfaction with present condition - satisfied or not satisfied: Satisfied [facility] Medical History Migraines Arthritis Lico's disease Anxiety Sciatica Numbness History of herniated intervertebral disc BMI 36.0-36.9,adult BMI 39.0-39.9,adult H. pylori infection Hyperlipidemia DJD (degenerative joint disease) GERD (gastroesophageal reflux disease) Hypothyroidism Morbid obesity Surgical History H/O Spinal surgery Hx of section Hx of cholecystectomy Family History Mother Diabetes Hypertension Father No problems noted. Son No problems noted. Son No problems noted. Daughter No problems noted. Social History Household Members: Family Housing: Apartment Are you a primary healthcare financial analyst to a significant other at home: Yes Do you presently have visiting nurse or other home services: No Alcohol intake: never Patient Tobacco Use Status: Current everyday Tobacco user Tobacco use type: Cigarette Cigarettes Per Day: 4 service: No Physical Exam Const General: cooperative and no acute distress Orientation/consciousness: patient oriented x3 Resp Effort & Inspection: normal respiratory effort Auscultation: clear to auscultation bilaterally Cardio Rate: regular rate Rhythm: regular rhythm GI Inspection: Yes normal to inspection and Yes incision (well healed) Palpation (GI): Soft to palpation and no masses Skin Other: Grade 2 pannus without active rash. Excess skin of the medial thighs noted. Neuro General: patient oriented x3 Assessment & Plan Assessment & Plan (1) S/P laparoscopic sleeve gastrectomy: Code(s): Z98.84 - Bariatric surgery status Category: Surgical Plan: Patient has maintained a stable weight. Recommend adding 2 eggs if she is to do the yogurt and not the Premier protein. Continue with 2 meals as she has been doing. Continue exercises she has been doing. Return to the office in 3 months, and 3 months after that. She just had labs done and low iron and B1. Repeat at 18 months (2) Excess skin: Code(s): L98.7 - Excessive and redundant skin and subcutaneous tissue Category: Medical Plan: Continue p.r.n. clotrimazole, barrier clothing, hygiene, she is appropriate for medically necessary skin removal surgery, and we will discuss this at her 18 month postoperative appointment based upon criteria of her health insurance
[2024-03-12 15:27] VITALS: BP 101/61; PULSE 91; TEMP 36.3; O2SAT 99; BMI 22.7
== END 2024-03-12 15:42 | disposition home or self-care (01) ==
PROVIDERS: PCP Family Medicine; Visit Provider Physician Assistant Surgical
DX: L98.7 Excessive and redundant skin and subcutaneous tissue (principal); Z98.84 Bariatric surgery status
CPT/HCPCS: 99213

== ENCOUNTER → 2024-03-12 15:14 | Outpatient (BNVA) | payer MEDICAID, SELFPAY | PROVIDERS: PCP Family Medicine; Visit Provider Physician Assistant Surgical | DX: L98.7 Excessive and redundant skin and subcutaneous tissue (principal); Z71.3 Dietary counseling and surveillance; Z98.84 Bariatric surgery status | CPT/HCPCS: 99212 ==

== ENCOUNTER 2024-04-27 17:44 | Outpatient (REF) | payer MEDICAID, SELFPAY ==
[2024-04-28 08:56] LABS: CT PCR NOT DETECTED (Not Detect.); NG PCR NOT DETECTED (Not Detect.)
== END 2024-04-27 17:45 | disposition home or self-care (01) ==
LOC: HO.CHCLNP 17:44
PROVIDERS: Visit Provider Family Medicine
DX: Z11.3 Encounter for screening for infections with a predominantly sexual mode of transmission (principal); M25.50 Pain in unspecified joint
CPT/HCPCS: 87491; 87591

== ENCOUNTER 2024-05-26 15:30 | Outpatient (REF) | payer MEDICAID, SELFPAY ==
[2024-05-26 15:56] LABS: MANUAL DIFF FLAG NO
[2024-05-26 16:05] LABS: Basophils Absolute Auto 0.1 X10*3/uL (0.0-0.2); Basophils Percent Auto 1.2 % (0-2); Eosinophils Absolute Auto 0.1 X10*3/uL (0.0-0.4); Eosinophils Percent Auto 1.6 % (0-4); Hematocrit 32.2 % (37.0-47.0); Hemoglobin 9.9 g/dl (12.0-16.0); Imm Gran Abs Auto 0.01 X10*3/uL (0.00-0.03); Imm Gran Pct Auto 0.2 % (0.0-0.4); Lymphocytes Absolute Auto 1.7 X10*3/uL (1.2-4.9); Lymphocytes Percent Auto 29.6 % (20-40); Mean Corpuscular HGB Conc 30.7 g/dl (31.0-35.0); Mean Corpuscular Volume 74.7 fL (80.0-98.0); Mean Platelet Volume 10.2 fL (9.4-12.3); Monocytes Absolute Auto 0.4 X10*3/uL (0.1-1.2); Monocytes Percent Auto 7.8 % (2-11); Neutrophils Absolute Auto 3.3 x10*3/uL (2.0-8.3); Neutrophils Percent Auto 59.6 % (45-73); Platelet Count 153 X10*3/uL (160-400); Red Blood Count 4.31 X10*6/uL (4.20-5.50); Red Cell Distribution Width 15.8 % (11.0-16.0); White Blood Count 5.6 X10*3/uL (4.8-10.8)
[2024-05-26 16:51] LABS: Erythrocyte Sedimentation Rate 7 MM/HR (0-20)
[2024-05-26 16:58] LABS: Rheumatoid Factor < 13.0 IU/mL (<15.0)
[2024-05-26 18:22] LABS: TSH reflex Free T4 3.17 uIU/mL (0.32-4.0)
[2024-05-26 18:26] LABS: Alanine Aminotransferase 16 U/L (0-31); Albumin Level 4.1 g/dL (3.5-5.0); Alkaline Phosphatase 46 U/L (39-117); Anion Gap 8 (12-20); Aspartate Amino Transferase 24 U/L (5-31); Bilirubin Total 0.3 mg/dL (0.0-1.0); Blood Urea Nitrogen 11 mg/dL (9-16); C Reactive Protein < 0.04 mg/dL (< or = 0.50); Calcium 8.6 mg/dL (8.4-10.2); Carbon Dioxide 23 mmol/L (22-29); Chloride 111 mmol/L (96-108); Estimated Glomerular Filt Rate > 60; Glucose Random 116 mg/dL (60-115); Potassium 3.8 mmol/L (3.3-5.1); Sodium 138 mmol/L (135-145); Total Protein 7.1 g/dL (6.5-8.0)
[2024-05-27 03:58] LABS: HIV Num 1 5.08 S/CO (0.00-0.99); ~HepC Num1 0.33 S/CO (0.00-0.79); ~Hepatitis C Antibody Nonreactive (Nonreactive)
[2024-05-27 04:56] LABS: HIV AB/AG Nonreactive (Nonreactive); HIV Num 2 0.05 S/CO; HIV Num 3 0.06 S/CO
[2024-05-27 08:28] LABS: Follicle Stimulating Hormone 5.1 mIU/mL
[2024-05-28 18:23] LABS: Parvovirus B19 IgG <0.9; Parvovirus B19 IgM <0.9
[2024-05-28 18:29] LABS: Cyclic Citrullinated Peptide <16 UNITS
[2024-05-29 11:47] LABS: ANA Pattern 2 Nuclear, Speckled; Anti Nuclear Antibody Screen POSITIVE (NEGATIVE)
[2024-06-12 03:39] LABS: Estradiol Ultra Sensitive 72 pg/mL
== END 2024-05-26 15:31 | disposition home or self-care (01) ==
LOC: HO.LAB 15:30
PROVIDERS: PCP Family Medicine; Visit Provider Family Medicine
DX: M25.50 Pain in unspecified joint (principal); E03.9 Hypothyroidism, unspecified; N95.1 Menopausal and female climacteric states
CPT/HCPCS: 36415; 80053; 82670; 83001; 84443; 85025; 85652; 86038; 86039; 86140; 86200; 86431; 86747; 86803; 87389

== ENCOUNTER 2024-06-11 08:53 | Outpatient (AMB) | payer MEDICAID, SELFPAY ==
[2024-06-11 08:25] VITALS: BMI 23.1
--- NOTE | 2024-06-11 08:25 | A.OFFVIS_ITS ---
VS Expanded 06/11/24 08:25 Height 5 ft 1 in Weight 122 lb 8 oz BMI 23.1 Body Fat % 27.1 Body Fat Mass 33.2 Fat Free Mass 89.6 Visceral Fat Rating 6 Body Water % 510 Body Water Mass 61.4 Muscle Mass/Score 84 Basal Metabolic Rate/Score 1,255 Intake Visit Reasons: (OV) PO LSG 03/06/23 Night Clerk Auditor Required: No Allergies diphenhydramine [From Benadryl] Allergy (Mild, Verified 03/12/24 15:27) Palpitations Medication List - Last Reconciled 06/11/24 by YANN Adam clotrimazole 1% (Antifungal (clotrimazole)) 1 appl topical BID iron,carbonyl-vitamin C 65 mg iron- 125 mg (Vitron-C) 1 tab PO DAILY levothyroxine 100 mcg PO DAILY thiamine HCl (vitamin B1) 100 mg PO DAILY HPI Comments Details: This?a?44?yo female who is s/p LSG without hiatal hernia repair on?03/06/23. Presents for 1 year 3 month post op visit. Weight today is 122.8 pounds, with a BMI of 23.1. There has been a 89.6 pound weight loss,(initial weight 212.4 pounds) since starting the program on 10/31/22 reflecting a 42.1% total body weight loss and a weight loss of 56.7 pounds since surgery (operative weight 179.5 pounds) reflecting a 31.5% TBWL since surgery. No complaints of nausea, emesis, abdominal pain or reflux. Reports infrequent but normal bowel movements every 2-3 days and uses stool softeners regularly. taking bariatric mvi daily No further nausea or constipation. She is happy with her current meal plan and does not want to change it. She has extra skin of her thighs and under her belly. She has had several rashes to under her abdomen and thigh. She has difficulty wearing clothes and has to wear special clothes to prevent chafing between her thighs. She has had to shower multiple times and applied powders with resolution but then recurrence. Also taking MVI daily Labs reveal low TIBC and B1 vitamin, these have been supplemented. Present meal plan includes: prydeinig yogurt or 2 eggs Meal with 5 forks of protein and 5 forks of vegetables, x 2. drinking 64 oz water Exercise routine includes: stationary bike, 500-600 calories PFSH Medical History Migraines Arthritis Lico's disease Anxiety Sciatica Numbness History of herniated intervertebral disc BMI 36.0-36.9,adult BMI 39.0-39.9,adult H. pylori infection Hyperlipidemia DJD (degenerative joint disease) GERD (gastroesophageal reflux disease) Hypothyroidism Morbid obesity Surgical History H/O Spinal surgery Hx of section Hx of cholecystectomy Family History Mother Diabetes Hypertension Father No problems noted. Son No problems noted. Son No problems noted. Daughter No problems noted. Social History Household Members: Family Housing: Apartment Are you a primary complex care nurse to a significant other at home: Yes Do you presently have visiting nurse or other home services: No Alcohol intake: never Patient Tobacco Use Status: Current everyday Tobacco user Tobacco use type: Cigarette Cigarettes Per Day: 4 service: No Physical Exam Vital Signs: BMI result Body Mass Index 23.1 Telehealth Telehealth Telehealth Platform: Telephone Location of provider rendering services: practice address Location of patient: address on file Patient Identification confirmed using: Name, : Yes Telehealth method: voice only Patient verbally consented to treatment: Yes Patient verbally consented to billing insurance company: Yes Patient informed of any privacy concerns related to visit: Yes Minutes spent on Phone/Video with Pt.: 15 Assessment & Plan Assessment & Plan (1) S/P laparoscopic sleeve gastrectomy: Code(s): Z98.84 - Bariatric surgery status Category: Surgical Plan: Overall, patient is doing well. She is tolerating her meal plan. She does get intermittent rashes for which she is using clotrimazole but had run out. We will renew the prescription. We will have her return to the office for her 18 month postop appointment, calling sooner should there be any questions or concerns. Medications: Refilled 2 clotrimazole 1% (Antifungal (clotrimazole)) 1 appl topical BID 45 grams 4RF
== END 2024-06-11 08:54 | disposition home or self-care (01) ==
LOC: HO.HBS 08:53
PROVIDERS: PCP Family Medicine; Visit Provider Physician Assistant Surgical
DX: Z98.84 Bariatric surgery status (principal)
CPT/HCPCS: 99213

== ENCOUNTER → 2024-06-11 08:53 | Outpatient (BNVA) | payer MEDICAID, SELFPAY | PROVIDERS: PCP Family Medicine; Visit Provider Physician Assistant Surgical ==

== ENCOUNTER 2024-10-02 10:12 | Outpatient (AMB) | payer MEDICAID, SELFPAY ==
[2024-10-02 10:28] VITALS: BMI 23.3
--- NOTE | 2024-10-02 10:28 | MHC.OFFVISWM ---
VS Expanded 10/02/24 10:28 Height 5 ft 1 in Weight 123 lb 8 oz BMI 23.3 Body Fat % 21.0 Body Fat Mass 26. Fat Free Mass 97.6 Visceral Fat Rating 3.0 Body Water % 56.3 Body Water Mass 69.6 Muscle Mass/Score 92.6 Basal Metabolic Rate/Score 1,295 Intake Visit Reasons: (OV) PO LSG 03/06/23 Intake Note: OV PO LSG 03/06/23 c/o dizziness at times Vegetable Washer Required: No Allergies diphenhydramine [From Benadryl] Allergy (Mild, Verified 03/12/24 15:27) Palpitations Medication List - Last Reconciled 10/02/24 by YANN Adam biotin (Hair, Skin and Nails (biotin)) mcg PO clotrimazole 1% (Antifungal (clotrimazole)) 1 appl topical BID iron,carbonyl-vitamin C 65 mg iron- 125 mg (Vitron-C) 1 tab PO .every other day levothyroxine 100 mcg PO DAILY multivitamin (Daily Multi-Vitamin tablet) 1 tab PO DAILY thiamine HCl (vitamin B1) 100 mg PO DAILY HPI Comments Details: This?a?44?yo female who is s/p LSG without hiatal hernia repair on?03/06/23. Presents for 1 year 7 month post op visit. Weight today is 123.8 pounds, with a BMI of 23.4. There has been a 88.6 pound weight loss,(initial weight 212.4 pounds) since starting the program on 10/31/22 reflecting a 42% total body weight loss and a weight loss of 55.7 pounds since surgery (operative weight 179.5 pounds) reflecting a 31.2% TBWL since surgery. No complaints of nausea, emesis, abdominal pain or reflux. Reports infrequent but normal bowel movements every 2-3 days and uses stool softeners regularly. taking bariatric mvi daily No further nausea or constipation. She is happy with her current meal plan and does not want to change it. She has extra skin of her thighs and under her belly. She has had several rashes to under her abdomen and thigh. She has difficulty wearing clothes and has to wear special clothes to prevent chafing between her thighs. She has had to shower multiple times daily and has been using the prescribed clotrimazole cream however then recurrence. She would have between 2 and 3 occurrences per month over the last 3 months. Additionally, she has maintained a stable and healthy weight. Also taking MVI daily Labs reveal low TIBC and B1 vitamin, these have been supplemented. Present meal plan includes: swazi yogurt or 2 eggs Meal with 5 forks of protein and 5 forks of vegetables, x 2. drinking 64 oz water Exercise routine includes: walking daily 5 miles stationary bike, 500-600 calories Any post op complications: none PAOLA: never DM: resolved HTN: never Hyperlipidemia: improved GERD:?0-5 scale ??0 = no symptoms ??1 = symptoms noticeable but not bothersome 2 =symptoms bothersome but not daily ? 3 = symptoms bothersome and daily 4 = symptoms affect daily activities 5 = symptoms are incapacitating, unable to do daily activities ? How bad is the heartburn: 0 ? Heartburn while lying down: 0 ? Heartburn when standing up: 0 ? Heartburn after meals: 0 ? Does heartburn change your diet: 0 ? Does heartburn wake you up from sleep: 0 ? Do you have difficulty swallowin ? Do you have pain with swallowin ? If you take medicine for your reflux, does this affect your daily life: 0 Satisfaction with present condition - satisfied or not satisfied: satisfied [facility] Medical History Migraines Arthritis Lico's disease Anxiety Sciatica Numbness History of herniated intervertebral disc BMI 36.0-36.9,adult BMI 39.0-39.9,adult H. pylori infection Hyperlipidemia DJD (degenerative joint disease) GERD (gastroesophageal reflux disease) Hypothyroidism Morbid obesity Surgical History H/O Spinal surgery Hx of section Hx of cholecystectomy Family History Mother Diabetes Hypertension Father No problems noted. Son No problems noted. Son No problems noted. Daughter No problems noted. Social History Household Members: Family Housing: Apartment Are you a primary lawn care specialist to a significant other at home: Yes Do you presently have visiting nurse or other home services: No Alcohol intake: never Patient Tobacco Use Status: Current everyday Tobacco user Tobacco use type: Cigarette Cigarettes Per Day: 4 service: No Physical Exam Vital Signs: BMI result Body Mass Index 23.3 Const General: cooperative and no acute distress Orientation/consciousness: patient oriented x3 Resp Effort & Inspection: normal respiratory effort Auscultation: clear to auscultation bilaterally Cardio Rate: regular rate Rhythm: regular rhythm GI Inspection: Yes normal to inspection and Yes incision (well healed) Palpation (GI): Soft to palpation and no masses Skin Other: Pannus grade 2/3 to the abdomen. No active dermatitis Neuro General: patient oriented x3 Assessment & Plan Assessment & Plan (1) S/P laparoscopic sleeve gastrectomy: Code(s): Z98.84 - Bariatric surgery status Category: Surgical Plan: Patient has done very well and has achieved a healthy weight. She continues to exercise regularly and is following the meal plan. We will continue as such. Additionally, check 18 month postop labs. Iron has been renewed in her prescriptions. (2) Excess skin: Code(s): L98.7 - Excessive and redundant skin and subcutaneous tissue Category: Medical Plan: Patient has lost 88.6 lb or 42% total body weight loss. As a result she has developed excess skin of her abdomen and thighs. This has caused a negative impact to her activities of daily living due to rash requiring excessive hygiene. The rash is described as painful, itchy and malodorous. It has been treated with prescriptive antifungal cream however while effective at the time, she has multiple recurrences. As a result of the recurrent skin infections, negative impact on her ADLs, the excess skin should be removed. This would be considered a medical necessity. We will submit to her insurance company for approval. In the meantime, she will continue to wear clothing between the skin folds, applying antifungal cream as needed and maintaining a dry and clean skin surface as much as she is able. Orders: Orders Lipid Panel Today D64.9 - Anemia, unspecified, E03.9 - Hypothyroidism, unspecified, E55.9 - Vitamin D deficiency, unspecified, E61.1 - Iron deficiency, E78.5 - Hyperlipidemia, unspecified, Z98.84 - Bariatric surgery status IRON PROFILE Today D64.9 - Anemia, unspecified, E03.9 - Hypothyroidism, unspecified, E55.9 - Vitamin D deficiency, unspecified, E61.1 - Iron deficiency, E78.5 - Hyperlipidemia, unspecified, Z98.84 - Bariatric surgery status Comprehensive Met. Panel Today D64.9 - Anemia, unspecified, E03.9 - Hypothyroidism, unspecified, E55.9 - Vitamin D deficiency, unspecified, E61.1 - Iron deficiency, E78.5 - Hyperlipidemia, unspecified, Z98.84 - Bariatric surgery status Vitamin B12 and Folate Today D64.9 - Anemia, unspecified, E03.9 - Hypothyroidism, unspecified, E55.9 - Vitamin D deficiency, unspecified, E61.1 - Iron deficiency, E78.5 - Hyperlipidemia, unspecified, Z98.84 - Bariatric surgery status Zinc Today D64.9 - Anemia, unspecified, E03.9 - Hypothyroidism, unspecified, E55.9 - Vitamin D deficiency, unspecified, E61.1 - Iron deficiency, E78.5 - Hyperlipidemia, unspecified, Z98.84 - Bariatric surgery status Vitamin B1 Today D64.9 - Anemia, unspecified, E03.9 - Hypothyroidism, unspecified, E55.9 - Vitamin D deficiency, unspecified, E61.1 - Iron deficiency, E78.5 - Hyperlipidemia, unspecified, Z98.84 - Bariatric surgery status TSH reflex Free T4 Today D64.9 - Anemia, unspecified, E03.9 - Hypothyroidism, unspecified, E55.9 - Vitamin D deficiency, unspecified, E61.1 - Iron deficiency, E78.5 - Hyperlipidemia, unspecified, Z98.84 - Bariatric surgery status Insulin Today D64.9 - Anemia, unspecified, E03.9 - Hypothyroidism, unspecified, E55.9 - Vitamin D deficiency, unspecified, E61.1 - Iron deficiency, E78.5 - Hyperlipidemia, unspecified, Z98.84 - Bariatric surgery status Hemoglobin A1c Today D64.9 - Anemia, unspecified, E03.9 - Hypothyroidism, unspecified, E55.9 - Vitamin D deficiency, unspecified, E61.1 - Iron deficiency, E78.5 - Hyperlipidemia, unspecified, Z98.84 - Bariatric surgery status Complete Blood Count Auto Diff Today D64.9 - Anemia, unspecified, E03.9 - Hypothyroidism, unspecified, E55.9 - Vitamin D deficiency, unspecified, E61.1 - Iron deficiency, E78.5 - Hyperlipidemia, unspecified, Z98.84 - Bariatric surgery status C Reactive Protein Today D64.9 - Anemia, unspecified, E03.9 - Hypothyroidism, unspecified, E55.9 - Vitamin D deficiency, unspecified, E61.1 - Iron deficiency, E78.5 - Hyperlipidemia, unspecified, Z98.84 - Bariatric surgery status Vitamin A Today D64.9 - Anemia, unspecified, E03.9 - Hypothyroidism, unspecified, E55.9 - Vitamin D deficiency, unspecified, E61.1 - Iron deficiency, E78.5 - Hyperlipidemia, unspecified, Z98.84 - Bariatric surgery status Ferritin Today D64.9 - Anemia, unspecified, E03.9 - Hypothyroidism, unspecified, E55.9 - Vitamin D deficiency, unspecified, E61.1 - Iron deficiency, E78.5 - Hyperlipidemia, unspecified, Z98.84 - Bariatric surgery status Vitamin D 25-OH Total Today D64.9 - Anemia, unspecified, E03.9 - Hypothyroidism, unspecified, E55.9 - Vitamin D deficiency, unspecified, E61.1 - Iron deficiency, E78.5 - Hyperlipidemia, unspecified, Z98.84 - Bariatric surgery status Medications: Changed From iron,carbonyl-vitamin C 65 mg iron- 125 mg (Vitron-C) swallow whole; do not chew/break/dissolve/open 1 tab PO .every other day D64.9 - Anemia, unspecified, E61.1 - Iron deficiency To iron,carbonyl-vitamin C 65 mg iron- 125 mg (Vitron-C) swallow whole; do not chew/break/dissolve/open 1 tab PO DAILY 90 tabs 2RF D64.9 - Anemia, unspecified, E61.1 - Iron deficiency
== END 2024-10-02 11:27 | disposition home or self-care (01) ==
LOC: HO.HBS 10:13
PROVIDERS: PCP Family Medicine; Visit Provider Physician Assistant Surgical
DX: L98.7 Excessive and redundant skin and subcutaneous tissue (principal); Z90.3 Acquired absence of stomach [part of]; Z98.84 Bariatric surgery status
CPT/HCPCS: 99214

== ENCOUNTER → 2024-10-02 10:12 | Outpatient (BNVA) | payer MEDICAID, SELFPAY | PROVIDERS: PCP Family Medicine; Visit Provider Physician Assistant Surgical | DX: L98.7 Excessive and redundant skin and subcutaneous tissue (principal); Z98.84 Bariatric surgery status | CPT/HCPCS: 99212 ==

== ENCOUNTER 2024-11-17 11:20 | Outpatient (REF) | payer MEDICAID, SELFPAY ==
--- OUTSIDE RECORDS SUMMARY | 2024-11-17 12:50 | XMS_ITS | Encounter Summary ---
Author Organization [facility] Address [address] [place] [address] Care Team Providers Care Fruit Inspector Name Role Phone Max Arizmendi Primary Care Provider Tammy Naylor LPCA Unavailable Anusha Molina ENVELOPE SEALER OPERATOR Unavailable Rachele Ornelas PARTY HOST Unavailable Encounter Details Date Type Department Care Team (Late st Contact Info) Description 10/27/2020 Prep for Surgery Day [facility] [address] [place] [address] Ashley Piña MD [facility] [address] [facility] [address] [place] [address] Social History Tobacco Use Types Packs/Day Years Used Date Smoking Tobacco: Former Cigarettes Smokeless Tobacco: Former Comments:stop Alcohol Use Standard Drinks/Week Comments No 0 (1 standard drink = 0.6 oz pur e alcohol) AUDIT-C Answer Date Recorded Frequency of Alcohol Consumption Never 03/19/2018 Average Number of Drinks Not on file 018 Frequency of Binge Drinking Not on file 03/08 Comments Yes Sex and Gender Information Value Date Recorded Sex Assigned at Female 05/13/2020 9:45 AM EST Legal Sex Female 12:30 PM EDT Gender Identity Female 05/13/2020 9:45 AM EST Sexual Orientation Heterosexual (straight) 05/13 9:45 AM EST COVID-19 Exposure Response Date Recorded In the last month, have you been in contact with someone who was confirmed or suspected to have Coronavirus / COVID-19? No / Unsure 10/27/2020 10:37 AM EDT documented as of this encounter H&P Notes * Ashley Piña MD - 10/27/2020 12:01 PM EDT Obstetrics History and Physical Admission Note: Admission date: 11/21/2020 Assessment: 40 y.o. @ 35w6d presenting for pre-op appointment for a repeat section scheduled for 11/21/20 at 39w3d. She has a history of 2 prior sections over 20 years ago. Plan: -Admit to L&D -Labs: CBC, T&S -Obtain NST pre-op -Diet: NPO with IV fluid hydration -Spinal per anesthesia team -Ancef 2g IV (currently 106 kg), Bicitra, Reglan IV, Tyelnol pre-op - consent form signed in the office 10/27/20 -Obesity and fibroids: high hemorrhage risk, will place 2 units pRBCs on hold -GDMA1: obtain fingerstick blood glucose pre-op and once (AM fasting) -Will perform routine COVID swab the week of procedure - vaccinations: MMR for rubella non-immune - contraception: declines -Will continue home Synthroid 150 mcg daily -Plans to breastfeed A/P d/w Dr. Bassem Piña MD PGY-3 [facility] GANG PUNCH OPERATOR (p) 10/27/20 12:01 PM Chief Complaint: I'm here for my History of Present Illness: 40 y.o. female at 35w6d weeks gestation, Estimated Date of Delivery: 11/25/20 by LMP c/w 1sttrimester ultrasound, who presents today for a repeat . No CTX No LOF No VB Yes FM Review of Systems Denies fevers, chills, N/V, diarrhea, constipation, CP, SOB Endorses mild headaches occasionally Endorses generalized pelvic pain Review of systems negative except as listed above in ROS and HPI. Problems: -AMA >40: normal cffDNA and level 2 ultrasound, normal msAFP. Receiving serial growth scans and NSTs twice weekly. GS @ 34w4d: EFW 6lb 2oz (78%) AC 90% -Polyhydramnios KASSIE 27 cm noted on most recent growth scan -Obesity BMI 43 -History of 2 prior sections (>20 years ago): desires repeat section -Fundal fibroid noted on anatomy scan -GDMA1: diet controlled with good glycemic control -Lico's thyroiditis: hypothyroidism, TFTs q trimester, currently on Synthroid 150 mcg daily -Migraines: on Tylenol PRN and mag oxide -Pelvic pain in : pelvic girdle -Gestational thrombocytopenia, most recent platelets 144 in August, repeated 10/27 -Rubella non-immune, offer MMR -Bipolar II: no meds, stable mood, sees a therapist -Declines contraception Past OB History: OB History Para Term AB Living 5 2 1 1 2 2 SAB TAB Ectopic Molar Multiple Live Births 2 0 0 0 0 2 # Outcome Date GA Lbr Marin/2nd Weight Sex Delivery Anes PTL Lv 5 Current 4 2019 9w0d 3 SAB 2018 7w0d 2 Term 1998 40w0d 3.402 kg (7 lb 8 oz) F CS-LTranv LANI 1 1997 30w0d 2.041 kg (4 lb 8 oz) M CS-LTranv LANI Comments: preeclampsia Past WARP PREPARER History: Denies history of abnormal pap smear Denies history of STIs Past Medical History: Past Medical History: Diagnosis Date ??? Anxiety ??? Depressed ??? Disease of thyroid gland Past Surgical History: Past Surgical History: Procedure Laterality Date ??? SECTION ??? CHOLECYSTECTOMY ??? UT NJX DX/THER SBST INTRLMNR LMBR/SAC W/IMG GDN Right 03/22/2018 Procedure: IR Epidural Inject Steroid Lumbar/Sacral w/img; Surgeon: Rakesh Garvey MD; Location: [facility]; Service: Interventional Radiology Social History: Denies tobacco use (endorses use prior to ) Denies alcohol use Denies drug use Family History: Family History Problem Relation Age of Onset ??? Diabetes Mother ??? Hypertension Mother ??? Anxiety disorder Mother ??? Cancer Father ??? Arthritis Sister ??? Anxiety disorder Sister ??? Fibromyalgia Sister ??? Thyroid disease Brother ??? Anxiety disorder Brother ??? Epididymitis Maternal Grandmother ??? Dementia Maternal Grandmother ??? Autism Nephew ??? Anxiety disorder Sister ??? Depression Sister ??? Alcohol abuse Sister ??? Epilepsy Sister Meds: Current Outpatient Medications Medication Sig Dispense Refill ??? acetone, urine, test strip 1 strip by Does not apply route daily. 30 strip 3 ??? ALPRAZolam (XANAX) 0.5 MG tablet Take 1 tablet (0.5 mg total) by mouth 2 times daily (every 12 hours) as needed for anxiety or sleep. 60 tablet 0 ??? ARIPiprazole (ABILIFY) 5 MG tablet Take 1 tablet (5 mg total) by mouth daily. TAKE 1/2 TABLET(2.5 MG) BY MOUTH DAILY FOR 2 WEEKS. INCREASE TO 1 PILL DAILY 30 tablet 0 ??? aspirin enteric coated (aspirin enteric coated) 81 MG EC tablet Take 1 tablet (81 mg total) by mouth daily. 30 tablet 3 ??? Blood Glucose Monitoring Suppl ([employer]) w/Device Kit USE TO TEST BLOOD GLUCOSE FOUR (4)TIMES DAILY 1 kit 0 ??? docusate sodium (COLACE) 100 MG capsule Take 1 capsule (100 mg total) by mouth 2 (two) times a day. 60 capsule 3 ??? famotidine (PEPCID) 10 MG tablet Take one (1) tablet by mouth twice daily for indigestion. 60 tablet 1 ??? Estefani 500 MG Cap Take 500 mg by mouth 2 (two) times a day. 60 capsule 0 ??? glucose blood test strip Use as directed for blood glucose monitoring 4-6 times daily. 200 teststrip 3 ??? hydrocortisone 1 % ointment Apply topically 2 (two) times a day. To affected areas two times daily 30 g 0 ??? Lancets Thin Misc Lancet USE FOUR (4) LANCETS DAILY, DIRECTED 200 lancet 3 ??? magnesium oxide 200 MG tablet Take 2 tablets (400 mg total) by mouth 2 (two) times a day. Take 2 hours apart from other medications; take with food 60 tablet 3 ??? ondansetron (ZOFRAN-ODT) 4 MG disintegrating tablet Take 1 tablet (4 mg total) by mouth 3 timesdaily (every 8 hours) as needed for nausea or vomiting. Place tablet on tongue to dissolve. 60 tablet 1 ??? polyethylene glycol (miraLAx) 17 g packet Take 1 packet (17 g total) by mouth daily. 14 packet 1 ??? Cno-AiSime-VA-DHA ( MULTIVITAMIN PER STATE FORMULARY) tablet Take 1 tablet by mouth daily as directed. Dispense Brand per State Formulary. 30 tablet 11 ??? SUPPLY [facility] cradle. Length of need 6 months. 1 Device 0 ??? Synthroid 137 MCG tablet Take 137 mcg by mouth daily on an empty stomach. (Patient taking differently: Take 150 mcg by mouth daily on an empty stomach. ) 30 tablet 3 No current facility-administered medications for this visit. Allergies: Allergies Allergen Reactions ??? Diphenhydramine Itching Pertinent Labs: B POSITIVE/antibody screen negative Rubella Not Immune HBsAg non-reactive HBsAb immune VZV Immune HIV Negative 04/08/20 and 09/29/20 RPR Negative 04/08/20 GTT 190 > GDMA1 GBS pending Physical Exam: Vitals 10/27/20: BP 121/75 HR 101 Temp 97.1F Weight: 235 lbs (106 kg) BMI: 43.11 Gen: NAD, A+O Resp: No increased WoB Abd: gravid, nontender Ext: nontender to palpation, calves equal, 1+ pedal edema SVE: 0/50/-3, posterior, soft Membrane Status: Intact EFW: 8 lbs by Yared's and growth scan extrapolation NST and ultrasound to be obtained on admission Cosigned by Audrey Luevano MD at 10/27/2020 1:27 PM EDT Associated attestation - Audrey Luevano MD - 10/27/2020 1:27 PM EDT Agree with resident H+P documented in this encounter Plan of Treatment Not on file documented as of this encounter Visit Diagnoses Not on filedocumented in this encounter Care Teams Fruit Inspector Relationship Specialty Start Date End Date Max Arizmendi [address] [place] [address] PCP - General 09/01/19 Tammy Naylor LPCA [address] [place] [address] Clinician Social Work 05/03/20 02/21/22 Anusha Molina APRN [address] [place] [address] Primary BH Attending Psychiatry, General 05/06/2002/22 Backer Rachele Lawrence LCSW [address] [place] [address] Investigative Writer Clinical Social Work 05/24/20 02/21/22 documented as of this encounter
--- OUTSIDE RECORDS SUMMARY | 2024-11-17 12:50 | XMS_ITS | Clinical Summary ---
Author Organization [facility] Address [address] [place] [address] Care Team Providers Care Cigarette Filter Inspector Name Role Phone Community, Pcp Primary Care Provider Unavailabl e Allergies No known active allergies Medications Medication Sig Dispensed Refills Start Date End Date Status alprazolam (XANAX) 0.5 MG tablet Take 0.5 mg by mouth 4 times daily. 0 Active omeprazole (PRILOSEC) 20 MG capsule Take 1 Cap by mouth daily for 30 days. 30 Cap 0 11/07/2017 Active Social History Tobacco Use Types Packs/Day Years Used Date Smoking Tobacco: Never Assessed Sex Assigned at Date Recorded Not on file Last Filed Vital Signs Vital Sign Reading Time Taken Comments Blood Pressure - - Pulse 100 11/07/2017 11:12 AM EDT Temperature 35.9 ??C (96.6 ??F) 11/07/2017 11:12 AM E DT Respiratory Rate 16 11/07/2017 11:12 AM EDT Oxygen Saturation - - Inhaled Oxygen Concentration - - Weight 98.7 kg (217 lb 8 oz) 11/07/2017 11:12 AM EDT Height 154.9 cm (5' 1 ) 11/07/2017 11:12 AM EDT Body Mass Index 41.1 11/07/2017 11:12 AM EDT Plan of Treatment Health Maintenance Due Date Last Done Comments Covid-19 Vaccine (#1) 1978 TOBACCO CHECK/ADVISE 02/06/1996 DTAP/TDAP/TD (1 - Tdap) 1997 CHOLESTEROL SCREENING 1998 CERVICAL CANCER SCREENING 1999 BASELINE HEALTH EXAM 40-64 2018 MAMMOGRAM 2018 BMI CHECK/ADVISE 07/08/2024 INFLUENZA (Season Ended) 2025 PNEUMOCOCCAL VACCINE FOR HIGH RISK PATIENTS (#1) 02/05 Care Teams Cigarette Filter Inspector Relationship Specialty Start Date End Date Community, Pcp PCP - General Internal Medicine 10/21/17
--- OUTSIDE RECORDS SUMMARY | 2024-11-17 12:50 | XMS_ITS | Encounter Summary ---
Author Organization [facility] Address [address] [place] [address] Care Team Providers Care Furnace Operator And Tender Name Role Phone Max Arizmendi Primary Care Provider [phone] Tammy Naylor LPCA Unavailable Anusha Molina LICENSE CLERK Unavailable Rachele Ornelas BUSINESS CONTINUITY SPECIALIST Unavailable Encounter Details Date Type Department Care Team (Late st Contact Info) Description 09/29/2020 Prep for Surgery [facility] [address] [place] [address] [phone] Lori Lau MD [address] [place] [address] Diet controlled gestational diabetes mellitus (GDM) in third trimester (Primary Dx) Social History Tobacco Use Types Packs/Day Years [...] have Coronavirus / COVID-19? No / Unsure 09/29/2020 1:11 PM EDT documented as of this encounter Plan of Treatment Scheduled Orders Name Type Priority Associated Diagnoses Orde r Schedule Labor Induction OB Routine Once for 1 Occurrences starting 09/29/2020 until 09/29/2020 documented as of this encounter Visit Diagnoses Diagnosis Diet controlled gestational diabetes mellitus (GDM) in third trimester- Primary documented in this encounter Care Teams Furnace Operator And Tender Relationship Specialty Start Date End Date Max Arizmendi [address] [place] [address] PCP - General 09/01/19 Tammy Naylor LPCA [address] [place] [address] Clinician Social Work 05/03/20 02/21/22 Anusha Molina APRN [address] [place] [address] Primary Attending Psychiatry, General 05/06/2002/22 Rachele Ornelas LCSW [address] [place] [address] Wrapping Checker Clinical Social Work 05/24/20 02/21/22 documented as of this encounter
--- OUTSIDE RECORDS SUMMARY | 2024-11-17 12:50 | XMS_ITS | Encounter Summary ---
Author Organization [employer] Address [address] [facility] 7 [place] [address] Care Team Providers Care Agriculture Mechanic Name Role Phone Betsy Waldrop MD Primary Care Provider [phone] Encounter Details Date Type Department Care Team ([facility] st Contact Info) Description 12/04/2022 [facility] Information Management [address] [place] [address] Betsy Waldrop MD [address] [place] [address] Social History Tobacco Use Types Packs/Day Years Used Date Smoking Tobacco: Every Day Cigarettes Passive Smoke Exposure: Current Smokeless Tobacco: Never Alcohol Use Standard Drinks/Week Comments Never 0 (1 standard drink = 0.6 oz pur e alcohol) Depression Answer Date Recorded Patient Health Questionnaire-9 Score 12 10/04/2022 Depression Answer Date Recorded Patient Health Questionnaire-2 Score 1 10/04/2022 Comments Unknown Sex and Gender Information Value Date Recorded Sex Assigned at Female 05/07/2022 10:26 AM EDT Legal Sex Female 10:26 AM EDT Gender Identity Female 08/30/2022 1:31 PM EST Sexual Orientation Straight 08/30/2022 1: 31 PM EST documented as of this encounter Plan of Treatment Not on file documented as of this encounter Visit Diagnoses Not on filedocumented in this encounter Additional Health Concerns Assessment Noted Time PHQ-9 Depression Total Score: 12 10/04/2 023 1:23 PM EDT documented as of this encounter Care Teams Agriculture Mechanic Relationship Specialty Start Date End Date Betsy Waldrop MD [address] [place] [id number] PCP - General Family Medicine 08/30/22 documented as of this encounter
--- OUTSIDE RECORDS SUMMARY | 2024-11-17 12:50 | XMS_ITS | Encounter Summary ---
Author Organization [facility] Address [address] [place] [address] Care Team Providers Care Power Sweeper Operator Name Role Phone Max Arizmendi Primary Care Provider [phone] Tammy Naylor LPCA Unavailable Anusha Molina BUSINESS CONSULTANT Unavailable [phone] Rachele Ornelas FINANCIAL ACCOUNTING MANAGER Unavailable [phone] Reason for Visit * Reason Comments Medication Refill Encounter Details Date Type Department Care Team (Late st Contact Info) Description 02/21/2021 [facility]ill [facility] [address] [facility] [address] [place] [address] Dolly Enamorado MD [address] [facility] [address] [place], [place] [id number] Diet controlled gestational diabetes mellitus (GDM) in second trimester Social History Tobacco Use Types Packs/Day Years Used Date Smoking Tobacco: Former Cigarettes Smokeless Tobacco: Former Comments:stop Alcohol Use Standard Drinks/Week Comments No 0 (1 standard drink = 0.6 oz pur e alcohol) AUDIT-C Answer Date Recorded Frequency of Alcohol Consumption Never 03/19/2018 Average Number of Drinks Not on file 018 Frequency of Binge Drinking Not on file 03/08 Comments No Sex and Gender Information Value Date Recorded Sex Assigned at Female 05/13/2020 9:45 AM EST Legal Sex Female 12:30 PM EDT Gender Identity Female 05/13/2020 9:45 AM EST Sexual Orientation Heterosexual (straight) 05/13 9:45 AM EST documented as of this encounter Miscellaneous Notes * Telephone Encounter - Jessica Hernandez RN - 02/22/2021 5:07 PM EDT Pt no longer needs to test for ketones as she delivered her baby already. documented in this encounter Plan of Treatment Not on file documented as of this encounter Visit Diagnoses Diagnosis Diet controlled gestational diabetes mellitus (GDM) in second trimester documented in this encounter Care Teams Power Sweeper Operator Relationship Specialty Start Date End Date Max Arizmendi [address] [place] [phone] PCP - General 09/01/19 Tammy Naylor LPCA [address] [place] [address] Clinician Social Work 05/03/20 02/21/22 Anusha Molina APRN [address] [place] [address] Primary BH Attending Psychiatry, General 05/06/2002/22 Backer Rachele Lawrence LCSW [address] [place] [address] Working Supervisor Clinical Social Work 05/24/20 02/21/22 documented as of this encounter
--- OUTSIDE RECORDS SUMMARY | 2024-11-17 12:50 | XMS_ITS | Encounter Summary ---
Author Organization [facility] Address [address] [place] [address] Care Team Providers Care Manager Public Name Role Phone UgoMax Primary Care Provider Reason for Visit * Reason Comments Medication Refill Encounter Details Date Type Department Care Team (Late st Contact Info) Description 07/19/2022 [facility]ill [facility] [address] [facility] [address] [place] [address] Dolly Enamorado MD 85 [facility] [address] [place], [place] [id number] Primary hypothyroidism Social History Tobacco Use Types Packs/Day Years [...] Telephone Encounter - Jessica Hernandez RN - 08/14/2022 1:15 PM EST Declined refill for Synthroid as pt has no follow up appt & had not gotten her lab work done despite message left for pt last month. Note sent with denial for pt to follow thru on both of these. documented in this encounter Plan of Treatment Not on file documented as of this encounter Visit Diagnoses Diagnosis Primary hypothyroidism Unspecified hypothyroidism documented in this encounter Care Teams Manager Public Relationship Specialty Start Date End Date Max Arizmendi [address] [place] [address] PCP - General 09/01/19 documented as of this encounter
--- OUTSIDE RECORDS SUMMARY | 2024-11-17 12:50 | XMS_ITS | Clinical Summary ---
Author Organization [employer] Address [address] [facility] 7[address] [place] [address] Care Team Providers Care Coil Shaper Name Role Phone Betsy Waldrop MD Primary Care Provider [phone] Allergies Active Allergy Reactions Criticality Noted Date Comments Diphenhydramine Itching Low 05/13/2020 Medications * This document contains information received from the source organization and may not represent a complete record from that organization. Multiple Vitamin (MULTIVITAMIN ADULT PO) Daily, 0 Refills, Maintenance, 09/26/22 14:40:00 EDT, Partial fill upon patient request if the prescription is for a schedule II opioid drug. 023 Active hydrOXYzine pamoate (Vistaril) 25 MG capsule Take 1 capsule (25 mg) by mouth every 8 (eight) hours if needed for itching or anxiety. 90 capsule 024 Active OLANZapine zydis (ZyPREXA ZYDIS) 5 MG disintegrating tabletIndications :Bipolar II disorder (CMS/HCC) Take 1 tablet (5 mg) by mouth at bedtime. 90 tablet 1 024 Active acetaminophen (Tylenol Extra Strength) 500 MG tablet Take 2 tablets (1,000 mg) by mouth every 8 (eight) hours if needed for mild pain or moderate pain. 90 tablet 024 Active pantoprazole (ProtoNix) 40 MG EC tablet Take 40 mg by mouth in the morning. 023 Active Carafate 1 GM/10ML suspension TAKE 10 MLS BY MOUTH 2 TIMES A DAY 023 Active naproxen (Naprosyn) 500 MG tablet TAKE 1 TABLET(500 MG) BY MOUTH IN THE MORNING AND AT BEDTIME NEEDED FOR MODERATE PAIN 60 tablet Active FLUoxetine (PROzac) 20 MG capsuleIndication s:Bipolar II disorder (CMS/HCC) TAKE 1 CAPSULE(20 MG) BY MOUTH IN THE MORNING 90 capsule 1 Active triamcinolone (Kenalog) 0.5 % ointment Apply topically 2 times daily. 90 g 024 Active ferrous gluconate (Fergon) 324 (38 Fe) MG tablet Take 1 tablet (324 mg) by mouth with breakfast. 30 tablet 11 024 2024 Active levothyroxine (Synthroid, Levoxyl) 100 MCG tabletIndications :Acquired hypothyroidism TAKE 1 TABLET BY MOUTH EVERY MORNING ON AN EMPTY STOMACH 90 tablet 1 025 Active ibuprofen 600 MG tabletIndications :Polyarthralgia Take 1 tablet (600 mg) by mouth every 8 (eight) hours if needed for mild pain. 90 tablet 1 025 2024 Active levothyroxine (Synthroid, Levoxyl) 100 MCG tabletIndications :Acquired hypothyroidism TAKE 1 TABLET BY MOUTH EVERY MORNING ON AN EMPTY STOMACH 90 tablet 1 024 2024 Discontinued Active Problems Problem Noted Date Diagnosed Date Polyarthralgia 04/27/2024 Assessment & Plan (04/27/2024 10:34 AM EDT): Ordering lab work for further evaluation of Sx and STI screening.Prescribing Prednisone for Sx. Relevant Medications Prednisone (Deltasone) 20 mg tablet Cervical cancer screening 02/04/2024 Assessment & Plan (02/04/2024 11:45 AM EDT): 43 y.o. here for cervical cancer screening. Will continue monitoring following ASCCP guidelines. Ordering mammography for further evaluation. Will follow up on ovarian pain on next visit. Moderate depressive disorder 12/09/2023 Breast cancer screening by mammogram 10/04/2022 Lumbar back pain with radicu lopathy affecting lower extremity 10/04/2022 Assessment & Plan (10/04/2022 1:43 PM EDT): Reviewed MRI from 2009 with left disc protrusion at L5-S1. Continues with low back pain with radicular symptoms With right sided radicular pain, will order MRI and f/up results. Will send to pain management Bipolar II disorder 05/13/2020 Overview (12/09/2023): ID: Yani is a 43 y.o. White straight-identified cis-female with previous documented hx of Anxiety and Bipolar Disorder MH services including OP Psychotherapy psychopharmacology who presents for Bipolar. Yani is looking to engage in OP services. Lives with her 3 y/o baby. During IBH Consult Yani presenting with depressed mood, loss of interests/pleasure , psychomotor agitation, trouble concentrating, fatigue/loss of energy, excessive worry/anxiety, difficulty controlling worry, restless/keyed up/On edge, easily fatigued, difficulty concentrating/Mind going blank , irritability, and muscle tension, and Pattern of unstable and intense interpersonal relationships, Impulsivity, Feelings of emptiness, Intense anger, and Other: rapid speech, constant mood swings, talkative, flight of idea, and decreased need for sleep, ; for a period of 18+ mo, for all symptoms in the context of lack of support, needing medication, caring for a 3 year old. PLAN: New/Additional Services needed Off-site services for Behavioral Health Integration Plan External OP therapy referral and OP psychiatry Referral Patient Self Plan Patient to utilize skills provided in intervention , Patient to reach out to [facility] team as needed, Patient to engage in OP therapy , and Patient to reach out to [facility] as needed Assessment & Plan (10/30/2023 10:32 AM EDT): Sent separate prescription, olanzapine/prozac, will f/up in 2 weeks, place referral to . Needs a psychiatrist. Assessment & Plan (10/23/2023 9:18 AM EDT): Reports that she continued with some irritable symptoms, but reports her mood has improved. Taking olanzapine/fluoxetine. Using hydroxyzine prn. Need to f/up with , f/up for pap Assessment & Plan (10/01/2023 10:27 AM EDT): Patient reports symptoms of depression, hx of bipolar disorder, no on medication, will start on olanzaprine-fluoxetine, and hydroxyzine for anxiety. Will f.up in 2 weeks to assess symptoms. Recommended BH, patient declined BH for the moment. Future Appointments Date Time Provider Department Center 10/10/2023 3:15 PM Betsy Waldrop MD [facility] Insomnia due to other mental disorder 05/13/2020 Overview (10/03/2022): Last Assessment & Plan: Type: chronic illness - moderate exacerbation, moderate progression Status: symptomatic, unchanged, aggravated by current stressor(s) Plan: ? ? Yani was counseled about and agreed to try to utilize the following sleep hygiene techniques : maintain a regular sleep routine (set bedtime and wake up), take naps when is sleeping and share nighttime feeding responsibility Migraines 04/27/2020 Overview (08/30/2022): 05/25/20: Hx of migraines. Prescribed magnesium oxide 400mg BID. Continue Tylenol PRN. Last Assessment & Plan: Continue tylenol as needed and mag oxide. Advised to call L&D if patient has a severe headache not improved with medication. Severe anxiety 09/10/2019 Smoker 09/10/2019 Morbid obesity 09/10/2019 Assessment & Plan (10/04/2022 5:01 PM EDT): Discussed calorie deficit, recommended reduction of 20-30% of maintenance calories; geoscientist referral offered. Recommended to decrease soda and sugary beverage consumption. Recommended at least 20 g per meal of protein to assist with satiety. Recommended at least 150 min/week of moderate intensity exercise. Referral to bariatric medicine. Acquired hypothyroidism 09/10/2019 Assessment & Plan (08/30/2022 2:06 PM EST): No records available for review, requested GABRIEL to get medical release form to get records. A this moment will refill her levothyroxine. She will need BHN referral to psychpharm Will need mammography order Given her morbid obesity will need labs. Thyromegaly 07/06/2019 Overview (08/30/2022): Overview: TSH/FT4 sent. US ordered. Last Assessment & Plan: TSH elevated, T4 wnl. Subclinical hypothyroidism. Synthroid prescribed. TSH/FT4 sent. US ordered. Thyroid nodule diagnosed and she was referred to endocrine - has appointment 12/25/2019 05/25/20: TSH/fT4 collected 05/16/20 wnl Last Assessment & Plan: 05/25/20: TSH/fT4 collected 05/16/20 wnl Follows with endocrine Resolved Problems Problem Noted Date Diagnosed Date Resolved Date Gestational hypertension, third trimester 11/03/2020 10/04/2022 Overview (10/03/2022): Mild range BP noted at 24w5d, today mild to severe range, now meeting criteria for gHTN. Patient also with persistent headache. Will send to triage for preE evaluation and change delivery plan from rLTCS at 39w to 37w. Last Assessment & Plan: Mild range BP noted at 24w5d, today mild to severe range, now meeting criteria for gHTN. Patient also with persistent headache. Will send to triage for preE evaluation and change delivery plan from rLTCS at 39w to 37w. Diet controlled gestational diabetes mellitus (GDM) in third trimester 09/01/2020 10/04/2022 Overview (08/30/2022): Added automatically from request for surgery [id number] Last Assessment & Plan: Continue diet control. Patient did not bring meter or log today. Seen by nutrition Gestational thrombocytopenia 09/01/2020 10/04/2022 Overview (10/03/2022): Plts 144 on 09/01/20 Needs repeat CBC next visit (10/06/20) Last Assessment & Plan: Plt 158 at last visit 10/27/20 Encounters Date Type Department Care Team Description 11/17/2024 Telephone [facility] [address] [place] [address] Betsy Waldrop MD Referral 11/03/2024 3:45 PM EDT Office Visit [facility] [address] [place] [address] Velia Hudson MD Polyarthralgia (Primary Dx) 11/03/2024 Travel 10/28/2024 Travel 10/20/2024 Refill [facility] [address] [place] [address] Betsy Waldrop MD Acquired hypothyroidism 09/18/2024 Population Health Risk Score [facility] () Department [address] [place] [id number] Provider, Population Health Generic from Last 3 Months Immunizations Name Administration Dates Next Due Influenza, IIV3, injectable 05/25/2020 Influenza, Unspecified 07/14/2019 Influenza, seasonal, injectable, preservative fr ee 04/27/2024 Influenza, seasonal, intradermal, preservative f ree 08/08/2012 MMR 11/06/2020 Pneumococcal Conjugate PCV 20 04/27/2024 Tdap 09/29/2020,10/16/2016 Social History Tobacco Use Types Packs/Day Years Used Date Smoking Tobacco: Every Day Cigarettes Passive Smoke Exposure: Current Smokeless Tobacco: Never Tobacco Cessation:Ready to Q uit: Not Asked; Counseling Given: Not Answered Alcohol Use Standard Drinks/Week Comments Never 0 (1 standard drink = 0.6 oz pur e alcohol) Depression Answer Date Recorded Patient Health Questionnaire-9 Score 13 12/06/2023 Patient Health Questionnaire-9 Score 13 12/06/2023 Last PHQ-9: Questionnaire Data Not on file 0 12/06/2023 Housing Stability Answer Date Recorded What is your housing situation today? I have alyssa haas 10/23/[address] you li ve. Do you have problems with any of the following? None of the above 10/23/2023 Food Insecurity Answer Date Recorded Within the past 12 months, y ou worried that your food would run out before you got money to buy more: Never True 10/23/2023 Within the past 12 months,th e food you bought just didn't last and you didn't have enough money to get more: Never True Transportation Answer Date Recorded In the past 12 months, has l ack of transportation kept you from medical appts, meetings, work or from getting things needed for daily living? No 02/28/2024 Utilities Answer Date Recorded In the past 12 months, has t he electric, gas, oil or water company threatened to shut off services in your home? No 10/23/2023 Depression Answer Date Recorded Patient Health Questionnaire-2 Score 6 12/06/2023 Internet Access Answer Date Recorded Internet Access Q1 Yes 03/06/2024 Internet Access Q2 Not on file 03/06/2024 Comments Unknown Sex and Gender Information Value Date Recorded Sex Assigned at Female 05/07/2022 10:26 AM EDT Legal Sex Female 10:26 AM EDT Gender Identity Female 08/30/2022 1:31 PM EST Sexual Orientation Straight 08/30/2022 1: 31 PM EST Last Filed Vital Signs Vital Sign Reading Time Taken Comments Blood Pressure 110/67 11/03/2024 3:36 PM EDT Pulse 98 11/03/2024 3:36 PM EDT Temperature 36.6 ??C (97.9 ??F) 11/03/2024 3:36 PM ED T Respiratory Rate 14 11/03/2024 3:36 PM EDT Oxygen Saturation 100% 11/03/2024 3:36 PM EDT Inhaled Oxygen Concentration - - Weight 56.7 kg (125 lb) 11/03/2024 3:36 PM EDT Height 152.4 cm (5') 11/03/2024 3:36 PM EDT Body Mass Index 24.41 11/03/2024 3:36 PM EDT Plan of Treatment Health Maintenance Due Date Last Done Comments CT Colonography 1978 Colonoscopy 1978 Colorectal Cancer Screening 1978 FIT DNA/Cologuard 1978 FIT 1978 FOBT 1978 Sigmoidoscopy 1978 Family Planning (PISQ) 1993 Hepatitis B Vaccines (1 of 3 - 19+ 3-dose series) 1997 Mammogram 2018 COVID-19 Vaccine ( season) 2024 Depression Screening 12/05/2024 12/06/2023, 12/06/19 24 SDOH Screening 02/27/2025 02/28/2024 Alcohol/Substance Use Screening 04/27/2025 04/27/2024 Tobacco Screening 11/04/2025 11/04/2024 Zoster Vaccines (1 of 2) 02/06/2028 Lipid Panel 12/16/2028 12/17/2023, 05/0 10/2022, 10/17/2022 Cervical Cancer Screening 02/03/2029 HPV/Cotest 02/03/2029 02/04/2024 Pap Smear 02/03/2029 02/04/2024 DTaP/Tdap/Td Vaccines (3 - Td or Tdap) 09/29/2030 09/29/2020, 10/16/2016 RSV Patients and Patients Aged 60 years or older (1 - 1-dose 75+ series) 2053 Influenza Vaccine Completed 04/27/2024, , 07/14/2019, Additional history exists Pneumococcal Vaccine: Pediatrics (0 to 5 Years) and At-Risk Patients (6 to 49) Years) Completed 04/27/2024 HIV Screening Completed 05/26/2024 Hepatitis C Screening Completed 05/26/2024 HIB Vaccines Aged Out No longer eligi ble based on patient's age to complete this topic HPV Vaccines Aged Out No longer eligi ble based on patient's age to complete this topic Hepatitis A Vaccines Aged Out No long er eligible based on patient's age to complete this topic IPV Vaccines Aged Out No longer eligi ble based on patient's age to complete this topic Meningococcal Vaccine Aged Out No arpita nighat eligible based on patient's age to complete this topic RSV under 20 months Aged Out No longe r eligible based on patient's age to complete this topic Rotavirus Vaccines Aged Out No longer eligible based on patient's age to complete this topic Procedures Procedure Name Priority Date/Time Associated Diagnosis Comments HEPATITIS C AB W/REFL TO HCV RNA, QN, PCR Routine 05/26/2024 3:54 PM EST Polyarthralgia HIV 1/2 ANTIGEN/ANTIBODY, FOURTH GENERATION W/RFL Routine 05/26/2024 3:54 PM EST Polyarthralgia HPV MRNA E6/E7 REFLEX TO HPV 16, 18/45 Routine 02/04/2024 12:00 AM EDT Cervical cancer screening [employer] SYSTEM PAP Routine 02/04/2024 12:00 AM EDT Cervical cancer screening LIPID PANEL, STANDARD Routine 12/17/2023 9:14 AM EDT from Last 3 Months or Most Recently Relevant to Health Maintenance Results * Hepatitis C Antibody with Reflex to HCV, RNA, Quantitative, Real-Time PCR (05/26/2024 3:54 PM EST) Hepatitis C Antibody Nonreactive Nonreactive [facility] Comment:Antibodies to HCV no t detected; does not exclude early acuteHCV infection. Blood Venous blood specimen / Unknown 05/26/2024 3:54 PM EST 05/26/2024 3:54 PM EST us Betsy Waldrop MD LAB BLOOD ORDERABLES Final Re sult [facility] [address] [place] [phone] * HIV-1/2 Antigen and Antibodies, Fourth Generation, with Reflexes (05/26/2024 3:54 PM EST) HIV AB/AG Nonreactive Nonreactive [facility] Comment:HIV-1 p24 Ag and/or HIV-1/HIV-2 Ab not detected.A test result that is nonreactive does not exclude thepossibility of exposure to or infection with HIV-1 and/orHIV-2. Nonreactive results in this assay for individualswith prior exposure to HIV-1 and/or HIV-2 may be due toantigen and antibody levels that are below the limit ofdetection of this assay.The irisnoteniFios HIV Ag/Ab Combo assay result andsupplemental assay results should be interpreted inconjunction with the patient's clinical presentation,history and other laboratory results. If the results areinconsistent with clinical evidence, additional testing issuggested to confirm the result. Blood Venous blood specimen / Unknown 05/26/2024 3:54 PM EST 05/26/2024 3:54 PM EST us Betsy Waldrop MD LAB BLOOD ORDERABLES Final Re sult [facility] [address] [place] [phone] [phone] * Pap Smear (02/04/2024 12:00 AM EDT) SOURCE: SEE NOTE [facility] Comment:None given Report Status: TNP [facility] Clinical Information: SEE NOTE [facility] Comment:None given LMP: SEE NOTE [facility] Comment:NONE GIVEN Prev. PAP: SEE NOTE [facility] Comment:NONE GIVEN Prev. BX: SEE NOTE [facility] Comment:NONE GIVEN Statement Of Adequacy: SEE NOTE [facility] Comment:Satisfactory for gavin luation.Endocervical/transformation zone componentpresent. General Categorization: TNP [facility] Interpretation/Result: SEE NOTE [facility] Comment:Cytology Results: Ne gative for intraepitheliallesion or malignancy. Cytology Comment SEE NOTE [facility] Comment:This Pap test has be en evaluated with computerassisted technology. Transplant Case Manager: SEE NOTE [facility] Comment:YP, CT(ASCP)CT scree jessica location: [place] [address] Review Transplant Case Manager: SEE NOTE [facility] Comment:SL, CT(ASCP)CT scree jessica location: [address] [address] Pathologist TNP [facility] PAP Infection [facility] See Note SEE NOTE [facility] Comment:EXPLANATORY NOTE:The Pap is a screening test for cervical cancer. It isnot a diagnostic test and is subject to false negativeand false positive results. It is most reliable when asatisfactory sample, regularly obtained, is submittedwith relevant clinical findings and history, and whenthe Pap result is evaluated along with historic andcurrent clinical information.THIS TEST WAS PERFORMED AT:[facility] [place] [phone] VALLE MD Pap Vial Vaginal structure / Unknown 02/04/2024 02/04/2024 Narrative [facility] - 02/07/2024 10:36 AM EDT SEE SCANNED RESULTS IN EMR us Betsy Waldrop MD LAB PATHOLOGY ORDERABLES Marizol benitez Result [facility] [address] [place] [address] [phone] * HPV mRNA E6/E7 w/Reflex to HPV Genotypes 16, 18/45 (02/04/2024 12:00 AM EDT) HPV nRNA E6/E7 NOT DETECTED [facility] Comment:Methodology: Transcr iption-Mediated AmplificationThis assay detects E6/E7 viral messenger RNA (mRNA) from 14high-risk HPV types(16,18,31,33,35,39,45,51,52,56,58,59,66,68).Cervical sources are required for HPV testing.If a vaginal source from a patient who has had atotal hysterectomy with removal of cervix wassubmitted, please contact the testing laboratoryfor alternative testing options.For additional information, please refer [email or web address].[employer]/faq/WCJ674p2(This link if provided for information/educational purposes only.)THIS TEST PERFORMED AT:[facility] [place] [phone] DIRECTOR: PERLA VALLE MD HPV mRNA E6/E7 [facility] HPV 16 RNA TNP [facility] HPV 18/45 RNA [facility] Vaginal Fluid Cervix uteri structure / Unknown 02/04/2024 02/04/2024 Narrative [facility] - 02/07/2024 10:36 AM EDT SEE SCANNED RESULTS IN EMRCollection Date: [id number] by: FIDE Carr: Cervix us Betsy Waldrop MD LAB CYTOLOGY ORDERABLES Final Result [facility] [address] [place] [phone] [phone] * Lipid Panel, Standard (12/17/2023 9:14 AM EDT) Triglycerides 53 <150 mg/dL [facility] Comment:Desirable Triglyceri de: less than 150 mg/dLBorderline High Triglyceride 150-199 mg/dLHigh Triglyceride: 200-499 mg/dLVery High Triglyceride: greater than or equal to 5OO mg/dL Cholesterol 149 <200 mg/dL [facility] Comment:Desirable Cholestero l: less than 200 mg/dLBorderline High Cholesterol: 200-239 mg/dLHigh Cholesterol: greater than 239 mg/dL LDL Cholesterol Calculated 83 <100 mg/dL [facility] Comment:Desirable LDL: less than 100 mg/dLNear Optimal/Above Optimal LDL: 110- 129 mg/dLBorderline High LDL: 130-159 mg/dLHigh LDL: 160-189 mg/dLVery High LDL: greater than or equal to 190 mg/dL HDL Cholesterol 56 >40 mg/dL [facility] Comment:Desirable HDL: great er than 40 mg/dL Note: This HDL assay may give artificially low results in patients with liver disease. 12/17/2023 9:14 AM EDT 12/17/2023 9:14 AM EDT us Generic External Data Provider LAB BLOOD ORDERAB LES Final Result [facility] [address] [place] [address] [phone] from Last 3 Months or Most Recently Relevant to Health Maintenance Insurance [employer] C[employer] Care Teams Coil Shaper Relationship Specialty Start Date End Date Waldrop, Betsy, MD [address] [place] [address] PCP - General Family Medicine 08/30/22
--- OUTSIDE RECORDS SUMMARY | 2024-11-17 12:50 | XMS_ITS | Encounter Summary ---
Author Organization [facility] Address [address] [place] [address] Care Team Providers Care Electroplating Sales Representative Name Role Phone Max Arizmendi Primary Care Provider Tammy Naylor LPCA Unavailable [phone] Anusha Molina DIRECTOR OF LITIGATION Unavailable [phone] Rachele Ornelas UX DEVELOPER DESIGNER Unavailable Encounter Details Date Type Department Care Team (Late st Contact Info) Description 11/21/2020 Scanned Document [facility] [address] [place] [phone] Rachele Cheung MD [address] [place] [address] Social History Tobacco Use Types Packs/Day Years [...] have Coronavirus / COVID-19? No / Unsure 11/11/2020 9:27 AM EDT documented as of this encounter Plan of Treatment Not on file documented as of this encounter Visit Diagnoses Not on filedocumented in this encounter Care Teams Electroplating Sales Representative Relationship Specialty Start Date End Date Ugo Destinycheng [address] [place] [address] PCP - General 09/01/19 Tammy Naylor LPCA [address] [place] [address] Clinician Social Work 05/03/20 02/21/22 Anusha Molina APRN [address] [place] [address] Primary BH Attending Psychiatry, General 05/06/2002/22 Rachele Ornelas LCSW [address] [place] [address] Patternmaker Apprentice Metal Clinical Social Work 05/24/20 02/21/22 documented as of this encounter
--- OUTSIDE RECORDS SUMMARY | 2024-11-17 12:50 | XMS_ITS | Encounter Summary ---
Author Organization [employer] Address [address] [facility] [address] [place] [address] Care Team Providers Care Refueling Ramp Attendant Name Role Phone Betsy Waldrop MD Primary Care Provider [phone] Reason for Visit * Reason Onset Date Comments Reschedule 12/17/2023 chart prep 12/17/2023 Encounter Details Date Type Department Care Team ([facility] st Contact Info) Description 12/17/2023 Telephone [facility] [address] [place] [address] Betsy Waldrop MD [address] [place] [address] Reschedule; chart prep Social History Tobacco Use Types Packs/Day Years [...] getting things needed for daily living? No 04/22/2023 Utilities Answer Date Recorded In the past 12 months, has t he electric, gas, oil or water company threatened to shut off services in your home? No 10/23/2023 Depression Answer Date Recorded Patient Health Questionnaire-2 Score 6 12/06/2023 Comments Unknown Sex and Gender Information Value Date Recorded Sex Assigned at Female 05/07/2022 10:26 AM EDT Legal Sex Female 10:26 AM EDT Gender Identity Female 08/30/2022 1:31 PM EST Sexual Orientation Straight 08/30/2022 1: 31 PM EST documented as of this encounter Miscellaneous Notes * Telephone Encounter - Guerline Merida [place] - 12/30/2023 9:01 AM EDT Chart Prep Labs: done Images: done Vaccines due: yes Referrals: N/A Screenings: colonoscopy , mammogram Overdue care gaps: SDOH * Telephone Encounter - Cheyenne Lozano - 12/17/2023 10:23 AM EDT Tc from pt requesting to reschedule 12/16 PAP appointment. Please contact pt at [phone] documented in this encounter Plan of Treatment Not on file documented as of this encounter Visit Diagnoses Not on filedocumented in this encounter Additional Health Concerns Assessment Noted Time PHQ-9 Depression Total Score: 13 024 8:42 AM EDT documented as of this encounter Care Teams Refueling Ramp Attendant Relationship Specialty Start Date End Date Betsy Waldrop MD [address] [place] [id number] PCP - General Family Medicine 08/30/22 documented as of this encounter
--- OUTSIDE RECORDS SUMMARY | 2024-11-17 12:50 | XMS_ITS | Encounter Summary ---
Author Organization [employer] Address [address] [place] [address] Care Team Providers Care Manufacturing Engineer Name Role Phone Betsy Waldrop MD Primary Care Provider [phone] Encounter Details Date Type Department Care Team ([facility] st Contact Info) Description 09/26/2023 Telephone [facility] MEDICINE [address] [place] [address] Betsy Waldrop MD [address] [place] [address] Social History Tobacco Use Types Packs/Day Years Used Date Smoking Tobacco: Every Day Cigarettes Passive Smoke Exposure: Current Smokeless Tobacco: Never Alcohol Use Standard Drinks/Week Comments Never 0 (1 standard drink = 0.6 oz pur e alcohol) Depression Answer Date Recorded Patient Health Questionnaire-9 Score 12 10/04/2022 Housing Stability Answer Date Recorded What is your housing situation today? I have alyssa haas 04/22/[address] you li ve. Do you have problems with any of the following? None of the above 04/22/2023 Food Insecurity Answer Date Recorded Within the past 12 months, y ou worried that your food would run out before you got money to buy more: Never True 04/22/2023 Within the past 12 months,th e food [...] shut off services in your home? No 04/22/2023 Depression Answer Date Recorded Patient Health Questionnaire-2 Score 1 10/04/2022 Comments Unknown Sex and Gender Information Value Date Recorded Sex Assigned at Female 05/07/2022 10:26 AM EDT Legal Sex Female 10:26 AM EDT Gender Identity Female 08/30/2022 1:31 PM EST Sexual Orientation Straight 08/30/2022 1: 31 PM EST documented as of this encounter Miscellaneous Notes * Telephone Encounter - Wing Raymond RN - 09/26/2023 11:00 AM EDT Tc to pt regarding today's appt. It was already set to be tele visit due to pt's son having autism and no one being able to take her to [facility]. * Telephone Encounter - Lorena Katz - 09/26/2023 10:32 AM EDT Tc from pt requesting to switch appt for today 09/25 at 2:45 to tele due to son with asthma. documented in this encounter Plan of Treatment Not on file documented as of this encounter Visit Diagnoses Not on filedocumented in this encounter Additional Health Concerns Assessment Noted Time PHQ-9 Depression Total Score: 12 023 1:23 PM EDT documented as of this encounter Care Teams Manufacturing Engineer Relationship Specialty Start Date End Date Betsy Waldrop MD [address] [place] [address] PCP - General Family Medicine 08/30/22 documented as of this encounter
--- OUTSIDE RECORDS SUMMARY | 2024-11-17 12:50 | XMS_ITS | Encounter Summary ---
Author Organization [facility] Address [address] [place] [address] Care Team Providers Care Naval Aircrewman Operator Name Role Phone Max Arizmendi Primary Care Provider Tammy Naylor LPCA Unavailable Anusha Molina SAFETY EQUIPMENT TESTER Unavailable Rachele Ornelas COMMUNITY LIFE DIRECTOR Unavailable Encounter Details Date Type Department Care Team (Late st Contact Info) Description 03/24/2020 [facility] [address] [facility] [address] [place] [id number] Dolly Enamorado MD 85 [facility] [address] [place] [address] Hypothyroidism (acquired) (Primary Dx) Social History Tobacco Use Types [...] have Coronavirus / COVID-19? No / Unsure 03/18/2020 1:49 PM EDT documented as of this encounter Plan of Treatment Not on file documented as of this encounter Procedures Procedure Name Priority Date/Time Associated Diagnosis Comments TSH, HIGHLY SENSITIVE Routine 04/15/2020 2:52 PM EDT Hypothyroidism (acquired) T4, FREE Routine 04/15/2020 2:52 PM EDT Hypothyroidism (acquired) documented in this encounter Results * TSH, Highly Sensitive (04/15/2020 2:52 PM EDT) TSH, Highly Sensitive 3.35 mIU/L [facility] Comment: ?Reference Range ?> or = 20 Years ??0.40-4.50 ? Ranges ?First trimester ?0.26-2.66 ?Second trimester ?? 0.55-2.73 ?Third trimester ?0.43-2.91 Blood specimen (specimen) Heel structure / Unknown 04/15/2020 2:52 PM EDT 04/15/2020 2:52 PM EDT Narrative [facility] - 04/16/2020 3:40 AM EDT FASTING:NO FASTING: NO Resulting Agency Comment Performing Organization Information: ?Site ID: [id number] ?Name: [employer] ?Address: [address] [place] [id number] ?Director: Deanne Mcdonough MD Dolly Enamorado MD LAB BLOOD ORDERABLES Final R esult Performing Organization Address [facility] Co de Phone Number [facility] [address] [place] [phone] * T4, Free (04/15/2020 2:52 PM EDT) T4, Free 1.3 0.8 - 1.8 ng/dL [facility] Blood specimen (specimen) Heel structure / Unknown 04/15/2020 2:52 PM EDT 04/15/2020 2:52 PM EDT Narrative [facility] - 04/16/2020 3:40 AM EDT FASTING:NO FASTING: NO Resulting Agency Comment Performing Organization Information: ?Site ID: [id number] ?Name: [employer] ?Address: [address] [place] [phone] ?Director: Deanne Mcdonough MD Dolly Enamorado MD LAB BLOOD ORDERABLES Final R esult Performing Organization Address [facility] de Phone Number [facility] [address] [place] [phone] documented in this encounter Visit Diagnoses Diagnosis Hypothyroidism (acquired)- Primary Unspecified hypothyroidism documented in this encounter Care Teams Naval Aircrewman Operator Relationship Specialty Start Date End Date Max Arizmendi [address] [place] [address] PCP - General 09/01/19 Tammy Naylor LPCA [address] [place] [address] Clinician Social Work 05/03/20 02/21/22 Anusha Molina APRN [address] [place] [address] Primary BH Attending Psychiatry, General 05/06/2002/22 Backer Rachele Lawrence LCSW [address] [place] [address] Electrical And Radio Mechanic Clinical Social Work 05/24/20 02/21/22 documented as of this encounter
--- OUTSIDE RECORDS SUMMARY | 2024-11-17 12:50 | XMS_ITS | Encounter Summary ---
Author Organization [employer] Address [address] [facility] 7[address] [place] [address] Care Team Providers Care Automation Clerk Name Role Phone Betsy Waldrop MD Primary Care Provider [phone] Reason for Visit * Reason Onset Date Comments Nurse Triage 04/23/2024 Encounter Details Date Type Department Care Team ([facility] Contact Info) Description 04/23/2024 Telephone [facility] MED & PEDS [address] [place] [address] Betsy Waldrop MD [address] [place] [address] Nurse Triage Social History Tobacco Use Types Packs/Day Years [...] encounter Miscellaneous Notes * Telephone Encounter - Sandie Alvarado RN - 04/23/2024 10:31 AM EDT called pt to triage, spoke to pt. pt states chronic joint pains getting worse for 1-2 weeks. pt states bilateral shoulder, knee, wrist and finger pain. pt denies fevers, illness symptoms, or other associated symptoms. given appt Saturday with PCP at 10:00 for exam. advised home care: rest, fluids, ice heat, OTC pain reliever as needed, and call back if worsening or new concerns. pt understands and agrees with plan. insurance verified. Multiple (2) protocols were used on this call. Disposition for Call: See in Office or Video Visit within 2 Weeks Protocol Used: Shoulder Pain (Adult) Protocol-Based Disposition: See in Office or Video Visit within 2 Weeks Video visit offer not recorded Positive Triage Question: * Mild pain (e.g., does not interfere with normal activities) and present > 7 days * All higher-acuity triage questions were negative Care Advice Discussed: * Reassurance and Education - Shoulder Pain * Pain Medicines * Pain Medicines - Extra Notes and Warnings * Reasons To Call Back - Moderate pain (such as interferes with normal activities) lasts over 3 days - Mild pain lasts over 7 days - You become worse Protocol Used: Muscle Aches and Body Pain (Adult) Protocol-Based Disposition: See in Office or Video Visit within 2 Weeks Video visit offer not recorded Positive Triage Question: * Mild pain (e.g., does not interfere with normal activities) and present > 7 days * All higher-acuity triage questions were negative Care Advice Discussed: * Reassurance and Education - Mild Muscle Pain * Pain Medicines * Reasons To Call Back - Fever occurs - Pain lasts longer than 7 days - You become worse * Telephone Encounter - Radha Carreno - 04/23/2024 9:10 AM EDT Symptom: Shoulder, wrist and knee Pain - Not From Injury Outcome: Schedule an appointment to be seen within 24 hours Reason: Caller denied all higher acuity questions The caller accepted this outcome. documented in this encounter Plan of Treatment Not on file documented as of this encounter Visit Diagnoses Not on filedocumented in this encounter Additional Health Concerns Assessment Noted Time PHQ-9 Depression Total Score: 13 024 8:42 AM EDT documented as of this encounter Care Teams Automation Clerk Relationship Specialty Start Date End Date Betsy Waldrop MD [address] [place] [address] PCP - General Family Medicine 08/30/22 documented as of this encounter
--- OUTSIDE RECORDS SUMMARY | 2024-11-17 12:50 | XMS_ITS | Encounter Summary ---
Author Organization [facility] Address [address] [place] [address] Care Team Providers Care Time Piece Repairer Name Role Phone [facility], Pcp Primary Care Provider Unavailabl e Encounter Details Date Type Department Care Team Description 10/29/2017 Orders Only Medical Records [address] [place] [address] Rahul North MD [address] [place] [address] Social History Tobacco Use Types Packs/Day Years Used Date Smoking Tobacco: Never Assessed Sex Assigned at Date Recorded Not on file documented as of this encounter Plan of Treatment Not on file documented as of this encounter Procedures Procedure Name Priority Date/Time Associated Diagnosis Comments OUTSIDE PATHOLOGY Routine 10/23/2017 documented in this encounter Results * OUTSIDE PATHOLOGY (10/23/2017) Rahul North MD OUTSIDE LAB documented in this encounter Visit Diagnoses Not on filedocumented in this encounter Care Teams Time Piece Repairer Relationship Specialty Start Date End Date Community, Pcp PCP - General Internal Medicine 10/21/17 documented as of this encounter
--- OUTSIDE RECORDS SUMMARY | 2024-11-17 12:50 | XMS_ITS | Encounter Summary ---
Author Organization [facility] Address [address] [place] [address] Care Team Providers Care Motors And Generators Inspector Name Role Phone Max Arizmendi Primary Care Provider Tammy Naylor LPCA Unavailable Anusha Molina EDUCATIONAL PSYCHOLOGIST Unavailable Rachele Ornelas CORONER'S JUROR Unavailable [phone] Reason for Visit * Reason Comments Medication Refill Encounter Details Date Type Department Care Team (Late st Contact Info) Description 12/07/2020 Refill [facility] [address] [place] [phone] Josie Bingham MD [address] [place], [place] [id number] History of 2 sections Social History Tobacco Use Types Packs/Day Years [...] have Coronavirus / COVID-19? No / Unsure 12/09/2020 3:03 PM EDT documented as of this encounter Plan of Treatment Not on file documented as of this encounter Visit Diagnoses Diagnosis History of 2 sections documented in this encounter Care Teams Motors And Generators Inspector Relationship Specialty Start Date End Date Max Arizmendi [address] [place] [address] PCP - General 09/01/19 Tammy Naylor LPCA [address] [place] [address] Clinician Social Work 05/03/20 02/21/22 Anusha Molina APRN [address] [place] [address] Primary BH Attending Psychiatry, General 05/06/2002/22 BackRachele Coley LCSW [address] [place] [address] Display Director Clinical Social Work 05/24/20 02/21/22 documented as of this encounter
--- OUTSIDE RECORDS SUMMARY | 2024-11-17 12:50 | XMS_ITS | Encounter Summary ---
Author Organization [employer] Address [address] [facility] [address] [place] [address] Care Team Providers Care Pyrotechnist Name Role Phone Betsy Waldrop MD Primary Care Provider [phone] Reason for Visit * Reason Onset Date Comments Referral 11/17/2024 Encounter Details Date Type Department Care Team ([facility] Contact Info) Description 11/17/2024 Telephone [facility] CH[facility] MED & PEDS [address] [place] [address] Betsy Waldrop MD [address] [place] [address] Referral Social History Tobacco Use Types Packs/Day Years [...] encounter Miscellaneous Notes * Telephone Encounter - Ina Wilkinson - 11/17/2024 11:16 AM EDT Pt states requesting a new referral to Rheumatology, pt states when she was referred her insurance was inactive she now has c3. Pls call pt documented in this encounter Plan of Treatment Not on file documented as of this encounter Visit Diagnoses Not on filedocumented in this encounter Additional Health Concerns Assessment Noted Time PHQ-9 Depression Total Score: 13 024 8:42 AM EDT documented as of this encounter Care Teams Pyrotechnist Relationship Specialty Start Date End Date Betsy Waldrop MD [address] [place] [address] PCP - General Family Medicine 08/30/22 documented as of this encounter
--- OUTSIDE RECORDS SUMMARY | 2024-11-17 12:50 | XMS_ITS | Clinical Summary ---
Author Organization [facility] Address [address] [place] [address] Care Team Providers Care Rental Management Trainee Name Role Phone Unavailable Primary Care Provider Unavailabl e Allergies No known active allergies Medications Medication Sig Dispensed Refills Start Date End Date Status ALPRAZolam (XANAX) 0.5 MG tablet TK 1 T PO QD PRF ANXIETY ATTACKS 0 09/01/2019 Active SYNTHROID 25 MCG tablet TK 1 T PO D ON AN EMPTY STOMACH 0 08/24/2019 Active 28-0.8 MG TABS TK 1 T PO QD 0 08/21/2019 Active Active Problems Problem Noted Date Diagnosed Date Acquired hypothyroidism 09/10/2019 Morbid obesity 09/10/2019 Other specified postprocedural states 09/10/2019 Smoker 09/10/2019 Bipolar I, most recent episode depressed, severe 09/10/2019 Adjustment disorder with anxiety 09/10/2019 Excessive weight gain 07/06/2019 Overview: Overview: 07/06/2019 100 lb weight gain in 1 year. Check TSH/HgBA1C Last Assessment & Plan: 100 lb weight gain in 1 year. Check TSH/HgBA1C Thyromegaly 07/06/2019 Overview: Overview: TSH/FT4 sent. US ordered. Last Assessment & Plan: TSH elevated, T4 wnl. Subclinical hypothyroidism. Synthroid prescribed. Spontaneous miscarriage 06/29/2019 Overview: Overview: 07/06/2019: test negative today. US with a small hypoechoic lesion in the myometrium, not in endometrium. Last Assessment & Plan: Discussed with patient regarding SAB. Patient seems to be grieving appropriately. Discussed most likely early miscarriage is due to her age. Patient interested in conceiving again. Recommend for her to continue PNV. We discussed that risks of aneuploidy is higher at 39, which she was aware of and willing to try again. Would recommend [facility] referral if not conceived in the next 6 months. Family History Medical History Relation Name Comments Depression Brother Dementia Maternal Grandmother Depression Mother Depression Sister Relation Name Status Comments Brother Maternal Grandmother Mother Sister Social History Tobacco Use Types Packs/Day Years Used Date Smoking Tobacco: Some Days Smokeless Tobacco: Never Alcohol Use Standard Drinks/Week Comments No 0 (1 standard drink = 0.6 oz pur e alcohol) Social Connection and Isolation Panel [NHANES] A nswer Date Recorded Frequency of Communication with Friends and Fami ly Never 09/10/2019 Frequency of Social Gatherings with Friends and Family Never 09/10/2019 Attends Quaker Services Never 09/09 Active Member of Clubs or Organizations No 09/10/2019 Attends Club or Organization Meetings Never 09/10/2019 Marital Status 09/10/2019 Overall Financial Resource Strain (CARDIA) Answe r Date Recorded Difficulty of Paying Living Expenses Very hard 09/10/2019 Hunger Vital Sign Answer Date Recorded Worried About Running Out of Food in the Last Ye ar Never true 09/10/2019 Ran Out of Food in the Last Year Never true 09/10/2019 PRAPARE - Transportation Answer Date Re corded Lack of Transportation (Medical) No 09/10/2019 Lack of Transportation (Non-Medical) No 09/10/2019 Education Answer Date Recorded What is the highest level of school you have completed or the highest degree you have received? High school graduate 09/10/2019 Sex and Gender Information Value Date Recorded Sex Assigned at Not on file Gender Identity Not on file Sexual Orientation Not on file Last Filed Vital Signs Vital Sign Reading Time Taken Comments Blood Pressure 115/94 09/10/2019 9:41 AM EST Pulse 90 09/10/2019 9:41 AM EST Temperature - - Respiratory Rate 18 09/10/2019 9:41 AM EST Oxygen Saturation - - Inhaled Oxygen Concentration - - Weight 90.7 kg (200 lb) 09/10/2019 9:41 AM EST Height 162.6 cm (5' 4 ) 09/10/2019 9:41 AM EST Body Mass Index 34.33 09/10/2019 9:41 AM EST Plan of Treatment Health Maintenance Due Date Last Done Comments Hepatitis B Vaccines (1 of 3 - 3-dose series) 1978 Hepatitis C Screening 1978 COVID-19 Vaccine (#1) 1978 Pneumococcal Vaccine (1 of 2 - PCV) 02/06/1984 Depression Screening 1990 Preventative Health Evaluation 02/06/1996 Tobacco Cessation Counseling 02/06/1996 DTap / Tdap / Td (1 - Tdap) 1997 Cervical Cancer Screening (P ap Smear) 1999 BMI Counseling 09/09/2020 09/10/2019 Colon Cancer Screening (Colonoscopy) 2023 Influenza Vaccine (#1) 2024 RSV Ped < 20 months Aged Out No longe r eligible based on patient's age to complete this topic ObrienVeroniqueYani Personal/Family Self 1980 [address] [facility] [facility] [facility] [address] [address] Obrien,Yani Behavioral Health Self 1980 [address] [facility] [address] [address]
--- OUTSIDE RECORDS SUMMARY | 2024-11-17 12:50 | XMS_ITS | Clinical Summary ---
Author Organization [facility] Address [address] [place] [address] Care Team Providers Care Fire Supervisor Name Role Phone Max Arizmendi Primary Care Provider [phone] Allergies Active Allergy Reactions Criticality Noted Date Comments Diphenhydramine Itching Low 05/13/2020 Medications * This document contains information received from the source organization and may not represent a complete record from that organization. magnesium oxide 200 MG tabletIndications:H x of migraines,Third trimester Take 2 tablets (400 mg total) by mouth 2 (two) times a day. Take 2 hours apart from other medications; take with food 60 tablet 3 1 Active norethindrone (MICRONOR) 0.35 MG tabletIndications:H istory of classical section Take 1 tablet (0.35 mg total) by mouth daily. 28 tablet 3 1 Active ALPRAZolam (XANAX) 0.5 MG tabletIndications:P anic disorder with agoraphobia,Insomni a due to medical condition Take 1 tablet (0.5 mg total) by mouth 3 times daily (every 8 hours) as needed for anxiety or sleep. 90 tablet 1 2 Active Synthroid 100 MCG tabletIndications:P rimary hypothyroidism Take 1 tablet (100 mcg total) by mouth daily on an empty stomach. 90 tablet 1 2 Active Att-TfRfyc-HG-DHA (Vitafol-One) 29-1-200 MG CapIndications:Esha haas is a currently breast-feeding mother Take 1 capsule by mouth daily. 30 capsule 2 Active Active Problems Problem Noted Date Diagnosed Date History of classical section 11/11/2020 Overview (11/11/2020): 11/04/20 - Repeat classical c section performed. Extensive adhesions encountered. Pt counseled about extensive adhesions and risks associated with another and c section and need for delivery at 36-37 weeks due to classical incision Assessment & Plan (11/11/2020 1:30 PM EDT): Repeat classical c section performed. Extensive adhesions encountered. Pt counseled about extensive adhesions and risks associated with another and c section and need for delivery at 36-37 weeks due to classical incision Gestational hypertension, third trimester 2020 Overview (11/03/2020): Mild range BP noted at 24w5d, today mild to severe range, now meeting criteria for gHTN. Patient also with persistent headache. Will send to triage for preE evaluation and change delivery plan from rLTCS at 39w to 37w. Assessment & Plan (11/03/2020 10:50 AM EDT): Mild range BP noted at 24w5d, today mild to severe range, now meeting criteria for gHTN. Patient also with persistent headache. Will send to triage for preE evaluation and change delivery plan from rLTCS at 39w to 37w. Group B Streptococcus boni r, +RV culture, currently 10/30/2020 Overview (10/30/2020): Antibiotics in labor Pelvic pain affecting pregna ncy in third trimester, antepartum 09/29/2020 Overview (09/29/2020): 09/29/20 Patient with significant pelvic discomfort when ambulating. Will order girdle - CJO Assessment & Plan (10/27/2020 11:58 AM EDT): Continue pelvic girdle. Discussed that often times this is expected in the third trimester of Assessment & Plan (09/29/2020 5:39 PM EDT): Patient with significant pelvic discomfort when ambulating. Will order girdle Gestational thrombocytopenia 09/01/2020 Overview (10/06/2020): Plts 144 on 09/01/20 Needs repeat CBC next visit (10/06/20) Assessment & Plan (11/03/2020 10:48 AM EDT): Plt 158 at last visit 10/27/20 Assessment & Plan (10/27/2020 11:55 AM EDT): Platelets 144 on 09/01 CBC ordered today Assessment & Plan (09/29/2020 5:27 PM EDT): -Last Plts 144K on 09/01 -CBC collected today Diet controlled gestational diabetes mellitus (GDM) in third trimester 09/01/2020 Overview (09/30/2020): Added automatically from request for surgery [id number] Assessment & Plan (11/03/2020 10:48 AM EDT): Continue diet control. Patient did not bring meter or log today. Seen by nutrition Assessment & Plan (10/27/2020 11:54 AM EDT): Continue diet control, blood glucose log reviewed and no value elevated. S/p nutrition visit Large for gestational age fetus 08/11/2020 Overview (10/13/2020): 08/11/2020 FH 31 cm today at 24w6d. GS planned with MFM 09/06/20 Most recent GS 30w4d, 4 lbs 1 oz 78%ile, AC 94% Assessment & Plan (11/03/2020 10:43 AM EDT): Most recent GS 34w4d 6lb 2oz 78%, AC 90% Assessment & Plan (10/13/2020 8:58 PM EDT): Most recent GS 30w4d, 4 lbs 1 oz 78%ile, AC 94% Assessment & Plan (08/11/2020 5:10 PM EST): FH 31 cm today at 24w6d. GS planned with [facility] 09/06/20 Allergic dermatitis 07/14/2020 Overview (07/14/2020): Dermatitis likely related to new laundry detergent, new soap. Prescribed hydrocortisone ointment 07/14/20. MARGARET Panic disorder with agoraphobia 05/13/2020 Assessment & Plan (08/30/2021 4:27 PM EST): Type: chronic illness - severe exacerbation, moderate progression Status: symptomatic, aggravated by current stressor(s) Plan: ? ? Continue alprazolam 0.5 mg to TID prn anxiety/panic ? ? discontinue desipramine 25 mg nightly Assessment & Plan (05/18/2021 12:11 PM EST): Type: chronic illness - severe exacerbation, moderate progression, treatment monitoring/management Status: symptomatic, aggravated by current stressor(s) Plan: ? ? Continue alprazolam 0.5 mg to TID prn anxiety/panic ? ? Initiate desipramine 25 mg nightly Assessment & Plan (02/25/2021 6:31 PM EDT): Type: chronic illness - severe exacerbation, moderate progression, treatment monitoring/management Status: symptomatic, aggravated by current stressor(s) Plan: ? ? Continue alprazolam 0.5 mg to TID prn anxiety/panic ? ? Initiate desipramine 25 mg nightly Assessment & Plan (01/03/2021 7:51 PM EDT): Type: chronic illness - severe exacerbation, moderate progression, treatment monitoring/management Status: symptomatic, aggravated by current stressor(s) Plan: ? ? Adjust alprazolam 0.5 mg to TID prn anxiety/panic ? ? Discontinue gabapentin 300 mg 3 times daily for anxiety, racing thoughts and sleep disruptions - patient endorses caused her to feel groggy, disconnected Assessment & Plan (12/09/2020 5:43 PM EDT): Type: chronic illness - severe exacerbation, moderate progression, treatment monitoring/management Status: symptomatic, aggravated by current stressor(s) Plan: ? ? Continue alprazolam 0.5 mg bid prn anxiety/panic ? ? Recommend use of gabapentin 300 mg 3 times daily for anxiety, racing thoughts and sleep disruptions Assessment & Plan (10/17/2020 12:00 PM EDT): Type: chronic illness - severe exacerbation, severe progression Status: symptomatic, aggravated by current stressor(s) Plan: ? ? Continue Alprazolam 0.5 mg bid Assessment & Plan (09/29/2020 5:28 PM EDT): -Has not currently been on xanax, but states will take if needed -Has a psychiatrist Assessment & Plan (08/04/2020 6:26 PM EST): Type: established, chronic, unstable, moderate exacerbation, moderate progression, uncertain prognosis Status: symptomatic, unchanged, patient's apparent stage of change: Pre- contemplative Assessment & Plan (07/14/2020 4:18 PM EST): -Patient prescribed alprazolam and abilify, not currently taking either -PPMD clinic recommending patient continue abilify given current anxiety/recurrent panic disorders -Patient will begin abilify again, continue to see therapist Assessment & Plan (05/25/2020 5:47 PM EST): Pt seen in Peripartum Mood Disorder clinic Prescribed Alprazolam and Aripiprazole (Abilify). Presently not taking either. MFM had counselled on minimizing Alprazolam. Abilify ok. Pt would prefer to not take either. She is continuing to see therapist . Bipolar disorder with psychotic features 020 Overview (08/16/2020): 08/16/20: not currently taking abilify or xanax but was recommended to per her provider at [facility] Assessment & Plan (08/30/2021 4:27 PM EST): Type: chronic illness - severe exacerbation, moderate progression Status: symptomatic, aggravated by current stressor(s) Plan: ? ? discontinue Abilify 7.5 mg daily Assessment & Plan (05/18/2021 12:11 PM EST): Type: chronic illness - severe exacerbation, moderate progression, treatment monitoring/management Status: symptomatic, aggravated by current stressor(s) Plan: ? ? Continue Abilify 7.5 mg daily Assessment & Plan (02/25/2021 6:32 PM EDT): Type: chronic illness - severe exacerbation, moderate progression, treatment monitoring/management Status: symptomatic, aggravated by current stressor(s) Plan: ? ? Continue Abilify to 7.5 mg daily Assessment & Plan (01/03/2021 7:52 PM EDT): Type: chronic illness - severe exacerbation, moderate progression, treatment monitoring/management Status: symptomatic, aggravated by current stressor(s) Plan: ? ? Increase Abilify to 7.5 mg daily Assessment & Plan (12/09/2020 5:42 PM EDT): Type: chronic illness - severe exacerbation, moderate progression, treatment monitoring/management Status: symptomatic, aggravated by current stressor(s) Plan: ? ? Continue Abilify 5 mg daily Assessment & Plan (11/03/2020 10:43 AM EDT): Not taking any medications, mood stable today, has a therapist Assessment & Plan (10/27/2020 11:57 AM EDT): Not taking any medications, mood stable today, has a therapist Assessment & Plan (10/17/2020 12:01 PM EDT): Type: chronic illness - moderate exacerbation, moderate progression Status: symptomatic, unchanged Plan: ? ? Patient has been rx'd abilify. Attempted to start but had negative secondary effects and discontinued (nausea and vomiting0 ? ? Reports post delivery wants to attempt the start the medication again Assessment & Plan (10/13/2020 8:53 PM EDT): not currently taking abilify or xanax but was recommended to per her provider at [facility] Assessment & Plan (09/29/2020 2:27 PM EDT): Not currently on abilify or xanax Assessment & Plan (08/04/2020 6:27 PM EST): Type: established, chronic, unstable, moderate exacerbation, moderate progression, uncertain prognosis Status: symptomatic, unchanged, patient's apparent stage of change: Pre- contemplative Insomnia due to other mental disorder 05/13/2020 Assessment & Plan (08/30/2021 4:37 PM EST): Type: chronic illness - moderate exacerbation, moderate progression Status: symptomatic, unchanged, aggravated by current stressor(s) Plan: ? ? Yani was counseled about and agreed to try to utilize the following sleep hygiene techniques : maintain a regular sleep routine (set bedtime and wake up), take naps when is sleeping and share nighttime feeding responsibility Assessment & Plan (08/04/2020 10:38 AM EST): Type: established, chronic, moderate exacerbation, mild progression Status: unchanged, aggravated by current stressor(s) Migraines 04/27/2020 Overview (05/25/2020): 05/25/20: Hx of migraines. Prescribed magnesium oxide 400mg BID. Continue Tylenol PRN. Assessment & Plan (10/27/2020 11:55 AM EDT): Continue tylenol as needed and mag oxide. Advised to call L&D if patient has a severe headache not improved with medication. Assessment & Plan (10/13/2020 9:02 PM EDT): Prescription resent for magnesium 400 mg daily with tylenol as needed Assessment & Plan (08/11/2020 5:08 PM EST): - magnesium oxide 400mg BID. Continue Tylenol PRN. - no complaints today Assessment & Plan (07/14/2020 4:10 PM EST): - History of migraines, multiple per week - Has mag ox and tylenol available, declines to take during - Has been referred to migraine clinic Assessment & Plan (06/21/2020 4:48 PM EST): -Patient with history of migraines, reports multiple headaches per week throughout -Prescribed mag oxide and tylenol, however patient does not like taking many medications -Will send referral to migraine clinic Assessment & Plan (05/25/2020 3:20 PM EST): 05/25/20: Hx of migraines. Prescribed magnesium oxide 400mg BID. Continue Tylenol PRN. Assessment & Plan (04/27/2020 4:25 PM EDT): Remote history. Encouraged to take tylenol and try caffeine for headaches. Advised to avoid NSAIDs. History of 2 sections 04/27/2020 Overview (10/13/2020): - G1- Pre-eclampsia with SF. delivered at 30 weeks after failed IOL. - G2- IOL. tachycardia and meconium. NRFHT remote from delivery. - Desires repeat . Scheduled for 11/21 11:30a Assessment & Plan (11/03/2020 10:47 AM EDT): consent form signed in clinic H&P completed Assessment & Plan (10/27/2020 12:00 PM EDT): Repeat C/S scheduled 11/21 at 11:30 AM consent form signed, to be scanned H&P completed today [ ] Will need COVID test at 38 weeks Assessment & Plan (10/13/2020 8:55 PM EDT): - G1- Pre-eclampsia with SF. delivered at 30 weeks after failed IOL. - G2- IOL. tachycardia and meconium. NRFHT remote from delivery. - Desires repeat . Scheduled for 11/21 11:30a Assessment & Plan (09/29/2020 5:27 PM EDT): -G1- Pre-eclampsia with SF. delivered at 30 weeks after failed IOL. -G2- IOL. tachycardia and meconium. NRFHT remote from delivery. Desires repeat . -Case request to be sent today for 10/18 for repeat C/S with September sent Assessment & Plan (08/11/2020 3:46 PM EST): - G1- Pre-eclampsia with SF. delivered at 30 weeks after failed IOL. - G2- IOL. tachycardia and meconium. NRFHT remote from delivery. - Desires repeat . Assessment & Plan (07/14/2020 4:15 PM EST): - Patient with two prior C/S, last in 1997 (G1 for pre-e with SF and failed IOL, G2 for tachycardia, mec and NRFHT remote from delivery) - Considering TOLAC, discussed risks and provided information today, will continue to discuss Assessment & Plan (06/21/2020 4:55 PM EST): -Patient with two prior C/S, last in 1997 (G1 for pre-ecclampsia with SF and failed IOL, G2 for tachyardia, mec, and NRFHT remote from delivery) -Is considering TOLAC, discussed risks of TOLAC in light of her two prior C/S including risk of uterine rupture, will continue to discuss Assessment & Plan (05/25/2020 4:33 PM EST): G1- Pre-eclampsia with SF. delivered at 30 weeks after failed IOL. G2- IOL. tachycardia and meconium. NRFHT remote from delivery. Desires repeat . Not immune to rubella 04/11/2020 Overview (04/11/2020): 04/11/2020: Offer vaccine PP. [facility] Assessment & Plan (11/03/2020 10:47 AM EDT): Discussed with patient and she is accepting of MMR vaccine Assessment & Plan (10/27/2020 11:56 AM EDT): Discussed with patient and she is accepting of MMR vaccine Assessment & Plan (10/13/2020 8:52 PM EDT): MMR Assessment & Plan (09/29/2020 2:20 PM EDT): Offer MMR Assessment & Plan (08/11/2020 3:48 PM EST): - offer MMR Assessment & Plan (07/14/2020 4:14 PM EST): - Plan for MMR Assessment & Plan (06/21/2020 4:53 PM EST): -RNI, discussed results and precautions with patient, plan for MMR Assessment & Plan (05/25/2020 8:38 AM EST): Offer vaccine PP Assessment & Plan (04/26/2020 3:53 PM EDT): Offer vaccine PP Multinodular goiter 12/25/2019 Assessment & Plan (04/26/2020 4:26 PM EDT): Benign FNA on 01/19/20 Obesity 12/04/2019 Overview (04/27/2020): BMI 39.42 04/27/20: Need early GTT next visit. M referral sent. Assessment & Plan (07/14/2020 4:13 PM EST): - Current BMI: 42 - Level II ultrasound normal with fundal fibroid 5.3x 3.7 x 5.7 cm , otherwise normal - Plan for NSTs and GSs with MFM > next GS scheduled 09/06/20 Assessment & Plan (06/21/2020 4:54 PM EST): -Current BMI 42 -Scheduled for L2 ultrasound with MFM in 07/2020 -Plan for NSTs and GSs with MFM Assessment & Plan (05/25/2020 5:34 PM EST): BMI 40.88 Early GTT drawn today NSTs at 32 weeks Assessment & Plan (04/27/2020 4:32 PM EDT): BMI 40. Early GTT next visit. Will need level 2 US and NSTs in third trimester. Primary hypothyroidism 09/10/2019 Overview (08/11/2020): 04/19/2020 TSH 3.35 and free T4 1.3. Will raise patient's Synthroid dose to 112 mcg/day. Will need repeat labs in 4 to 6 weeks. PJB 07/15 TSH 1.28 wnl Assessment & Plan (11/03/2020 10:48 AM EDT): Taking Synthroid 150 mcg daily Last TFTs 10/27 normal Assessment & Plan (10/27/2020 11:53 AM EDT): Taking Synthroid 150 mcg daily Last TFTs 10/18 and normal Assessment & Plan (09/29/2020 5:26 PM EDT): -Currently taking 150mcg synthroid daily -Last TSH on 1.28 on 07/15 (normal range in 2nd trim: 0.2-3.0) -Repeat TSH with reflex T4 collected today Assessment & Plan (08/11/2020 3:48 PM EST): - TSH 1.28 wnl, 07/15 Assessment & Plan (07/14/2020 4:07 PM EST): - Currently on synthroid 137 mcg daily, managed by endocrine - Last TSH 1.47, Free T4 1.3 on 06/15/20 - Next endocrine appointment 07/29/20 Assessment & Plan (06/21/2020 4:52 PM EST): -Patient with hypothyroidism and thyroid nodule, followed by Endocrine with appointments every 4 weeks and adjustment of Synthroid -Synthroid increased to 137 mcg daily by Endocrine Assessment & Plan (05/25/2020 4:31 PM EST): Continue current Synthroid dose Assessment & Plan (04/26/2020 3:50 PM EDT): TSH 3.35 and free T4 1.3 on 04/19/2020. Synthroid dose increased to 112 mcg/day. Will need repeat labs at next appointment. Thyromegaly 07/06/2019 Overview (05/25/2020): TSH/FT4 sent. US ordered. Thyroid nodule diagnosed and she was referred to endocrine - has appointment 12/25/2019 05/25/20: TSH/fT4 collected 05/16/20 wnl Assessment & Plan (05/25/2020 4:30 PM EST): 05/25/20: TSH/fT4 collected 05/16/20 wnl Follows with endocrine Assessment & Plan (04/26/2020 3:51 PM EDT): Thyroid nodule diagnosed on US follows with endocrine Assessment & Plan (07/27/2019 4:01 PM EST): TSH elevated, T4 wnl. Subclinical hypothyroidism. Synthroid prescribed. Assessment & Plan (07/06/2019 1:12 PM EST): Patient with enlarged thyroid on exam. Will send TSH/Free T4. Also reports 100 lb weight gain. Resolved Problems Problem Noted Date Diagnosed Date Resolved Date 11/04/2020 02/25/2021 AMA (advanced maternal age) > 40 06/21/2020 02/25/2021 Overview (08/11/2020): - Currently 40 yo - Level II ultrasound with fundal fibroid, otherwise WNL - Normal cfDNA - Plan for NSTs and GSs with MFM Assessment & Plan (11/03/2020 10:43 AM EDT): Normal cffDNA and level 2 ultrasound Getting twice weekly NSTs and serial growth scans with MFM GS @ 34w4d: EFW 6lb 2oz (78%) AC 90% Assessment & Plan (10/27/2020 11:57 AM EDT): Normal cffDNA and level 2 ultrasound Getting twice weekly NSTs and serial growth scans with MFM GS @ 34w4d: EFW 6lb 2oz (78%) AC 90% Assessment & Plan (10/13/2020 8:53 PM EDT): Level II US with fundal fibroid, otherwise wnl cfDNA wnl Assessment & Plan (09/29/2020 5:29 PM EDT): -Level II US with fundal fibroid, last size 4.5 x 4.4 x 4.0cm -Normal cfDNA -Plan for NSTs and GS with MFM Assessment & Plan (07/14/2020 4:19 PM EST): - Currently 40 - Level II ultrasound with fundal fibroid, otherwise WNL - Normal cfDNA - Plan for NSTs and GSs with MFM Assessment & Plan (06/21/2020 4:54 PM EST): -Current age 40 -Scheduled for L2 ultrasound with MFM in 07/2020 -Plan for NSTs and GSs with MFM Gestational diabetes 05/25/2020 021 Overview (10/13/2020): Elevated 1 hr GTT (190), taking FS 4x daily, well controlled with diet. 08/11/2020 well controlled - 2 elevated postprandial 120 and 121 in last 2 weeks. als 10/13/2020 did not bring logs today, encouraged to do so at next visit Assessment & Plan (10/13/2020 9:01 PM EDT): did not bring logs today, encouraged to do so at next visit Assessment & Plan (09/29/2020 5:26 PM EDT): -Diet controlled -No log today, states fasting in 80s and one postprandial 150s -Encouraged patient to bring glucometer to visits Assessment & Plan (08/11/2020 5:12 PM EST): - Elevated 1 hr GTT (190), taking FS 4x daily, well controlled with diet. - 2 elevated postprandial 120 and 121 in last 2 weeks. Assessment & Plan (07/14/2020 4:08 PM EST): - Elevated 1 hr GTT (190) - Has been taking FS 4x/day for the last month, appears well controlled with diet - Fasting 80-90's, postprandial 110's Assessment & Plan (06/21/2020 4:51 PM EST): -Patient with elevated early 1H GTT (190) -Has been taking her FS for the past two weeks, all fasting and 2H postprandials are WNL -Discussed with patient that she can transition to two FS per day (one fasting and one postprandial, switching the postprandial each day to get a variety) -Will need nutrition visit care 04/27/2020 02/25/2021 Overview (10/13/2020): First Trimester: [x] routine labs [-] SMA/CF screen [x] evidence of Varicella immunity [x] gc/chlamydia, collected 04/27 [x] pap, if indicated, collected 04/27 [x] first trimester screen or cell free DNA [x] Pre-eclampsia risk assessment, high risk, consider baseline labs [x] Reviewed weight gain in [x ] early GTT, collected 05/25/20 - 190 > GDMA1 Second Trimester: [x] sequential screen/quad screen/msAFP- WNL [x] anatomy ultrasound [x] level 2 US, with fundal fibroid otherwise WNL Third Trimester: [ ] - GDMA1 [ ] repeat Hgb/Hct, HIV, RPR - CBC done at 28w, collected HIV/RPR 09/29 [ ] GBS culture done [ ] NSTs at 32 weeks Immunizations: [x] flu vaccine [x] Tdap Plans: [x] contraception plans - declines, very sure [x] feeding plan - breast and bottle Delivery Plan: [x] Mode of delivery - desires repeat CS signed NO on consent [ ] Timing of delivery - 39w3d [ ] Delivery scheduled - 11/21 11:30a, case request and September sent [ ] H&P completed Assessment & Plan (11/03/2020 10:46 AM EDT): GBS positive Repeat C/S scheduled 11/21 11:30am- will reschedule for 37w if patient ruled out for preE in triage H&P completed Declines contraception Plans to breast and bottle feed S/p tdap and flu vaccines Assessment & Plan (10/13/2020 9:00 PM EDT): Declines BC, plans to breast and bottle feed S/p tdap and flue vaccines Scheduled repeat CS at 39w3d Assessment & Plan (09/29/2020 5:37 PM EDT): -Labs up to date -S/p Tdap and flu -Contraception: declines -Feeding: Breast and bottle Delivery plan: Mode: Desires repeat C/S Timinw3d Delivery scheduled: Case request sent for 11/17 and September completed Needs H&P Assessment & Plan (08/11/2020 5:08 PM EST): - plan for 3rd trimester labs at next visit with tdap - desires repeat CS - declines BC would like to breast and bottle feed - cfDNA & level II wnl (level II showed fundal fibroid) Assessment & Plan (07/14/2020 4:16 PM EST): First Trimester: [x] routine labs [-] SMA/CF screen [x] evidence of Varicella immunity [x] gc/chlamydia, collected 04/27 [x] pap, if indicated, collected 04/27 [x] first trimester screen or cell free DNA [x] Pre-eclampsia risk assessment, high risk, consider baseline labs [x] Reviewed weight gain in [ ] early GTT, collected 05/25/20 Second Trimester: [x] sequential screen/quad screen/msAFP- WNL [x] anatomy ultrasound [x] level 2 US, with fundal fibroid otherwise WNL Third Trimester: [ ] 1 hour GTT [ ] repeat Hgb/Hct, HIV, RPR [ ] GBS culture done [ ] NSTs at 32 weeks Immunizations: [x] flu vaccine [ ] Tdap Plans: [ ] contraception plans [ ] feeding plan Delivery Plan: [x] Mode of delivery, considering TOLAC [ ] Timing of delivery [ ] Delivery scheduled [ ] H&P completed Assessment & Plan (06/21/2020 4:54 PM EST): First Trimester: [x] routine labs [-] SMA/CF screen [x] evidence of Varicella immunity [x] gc/chlamydia, collected 04/27 [x] pap, if indicated, collected 04/27 [x] first trimester screen or cell free DNA - cfDNA [x] Pre-eclampsia risk assessment - taking baby ASA daily [x] Reviewed weight gain in Second Trimester: [x] sequential screen/quad screen/msAFP - msAFP sent today [-] level 2 US, scheduled w/ MFM in 07/2020 Immunizations: [x] flu vaccine Assessment & Plan (05/25/2020 4:38 PM EST): First Trimester: [x] routine labs [-] SMA/CF screen [x] evidence of Varicella immunity [x] gc/chlamydia, collected 04/27 [x] pap, if indicated, collected 04/27 [x] first trimester screen or cell free DNA [x] Pre-eclampsia risk assessment, high risk, consider baseline labs [x] Reviewed weight gain in [ ] early GTT, collected 05/25/20 Second Trimester: [ ] sequential screen/quad screen/msAFP, 05/25/20 will order at next visit [x] anatomy ultrasound [ ] level 2 US, scheduled w/ MFM in 07/2019 Third Trimester: [ ] 1 hour GTT [ ] repeat Hgb/Hct, HIV, RPR [ ] GBS culture done [ ] NSTs at 32 weeks Immunizations: [x] flu vaccine [ ] Tdap Plans: [ ] contraception plans [ ] feeding plan Delivery Plan: [x] Mode of delivery, desires rCS [ ] Timing of delivery [ ] Delivery scheduled [ ] H&P completed Food aversion 04/27/2020 11/03/2020 Overview (04/27/2020): 04/27/20: Patient states she has metallic taste in mouth and food aversions. Counseled on importance of healthy diet. Interested in meeting with nutrition. Assessment & Plan (05/25/2020 4:35 PM EST): Continues to have food aversions. Has seen nutrition. High-risk supervision 04/08/2020 02/25/2021 Overview (04/08/2020): High risk for Pre-Eclampsia. Pt will have repeat U/S for viability and better imaging, therefore will wait until SUKUMAR is confirmed as the pt will begin at 12 weeks. RX FOR ASA WILL NEED TO BE ORDERED after U/S Assessment & Plan (10/27/2020 11:55 AM EDT): Taking 81 mg ASA for pre-eclampsia prevention. Discussed with patient she can stop taking this medication at 36 weeks (tomorrow). Assessment & Plan (10/13/2020 8:54 PM EDT): Continue ASA 81 mg Assessment & Plan (07/14/2020 4:13 PM EST): - Continue ASA 81mg daily Assessment & Plan (05/25/2020 5:41 PM EST): Prescription for ASA 81mg sent AMA 40yo NSTs at 32 weeks Assessment & Plan (04/27/2020 4:23 PM EDT): Will start ASA 81mg at 12 weeks GA. Anxiety 12/01/2019 05/13/2020 Overview (12/01/2019): 12/01/2019 Pt states palpitations from anxiety since beginning . States hx of anxiety in the past but not on meds since 2018. clinical services manager referral placed. DF Assessment & Plan (04/27/2020 4:21 PM EDT): Pt states palpitations from anxiety since beginning . States hx of anxiety in the past but not on meds since 2018. Patient reports long history of panick attacks which she states she has been having daily. Most recently this morning. [facility] had [facility] and was prescribed medications however she has not used these medications due to fear of teratogenicity. She states she does not like the therapist that she saw and would like referral. Referral sent to [facility] and pamphlet given. Bipolar I, most recent episo de depressed, severe 09/10/2019 05/13/2020 Assessment & Plan (04/27/2020 4:39 PM EDT): Remote diagnosis. Not in treatment. Smoker 09/10/2019 05/25/2020 Assessment & Plan (04/27/2020 4:23 PM EDT): Quit with positive test. continues to smoke in the house. Counseled on dangers of second hand smoke during and to infant. Patient states she will continue to encourage her to quit. Excessive weight gain 07/06/20192019 Overview (07/06/2019): 07/06/2019 100 lb weight gain in 1 year. Check TSH/HgBA1C Assessment & Plan (07/06/2019 1:18 PM EST): 100 lb weight gain in 1 year. Check TSH/HgBA1C Spontaneous miscarriage 06/29/2019 06/0 07/2019 Overview (07/06/2019): 07/06/2019: test negative today. US with a small hypoechoic lesion in the myometrium, not in endometrium. Assessment & Plan (07/06/2019 1:17 PM EST): Discussed with patient regarding SAB. Patient seems [...] not conceived in the next 6 months. HNP (herniated nucleus pulposus), lumbar 03/19/2018 06/21/2020 Overview (03/22/2018): Added automatically from request for surgery [id number] Assessment & Plan (04/27/2020 4:24 PM EDT): Patient reports history of herniated disk and sciatica. Will have anesthesia consult later in . Lumbar radiculopathy 03/19/2018 020 Overview (03/22/2018): Added automatically from request for surgery [id number] Immunizations Immunization Administration Dates Next Due Influenza Inactivated/Split Preservative Free IM 05/25/2020 Influenza, Unspecified 07/14/2019 MMR 11/06/2020 Tdap 09/29/2020 Family History Medical History Relation Name Comments Anxiety disorder Brother 1 Stiven Thyroid disease Brother 1 Stiven Cancer Father Dementia Maternal Grandmother Epididymitis Maternal Grandmother Anxiety disorder Mother Tati Diabetes Mother Tati Hypertension Mother Tati Autism Nephew Anxiety disorder Sister 1 Va Arthritis Sister 1 Va Fibromyalgia Sister 1 Va Anxiety disorder Sister 2 Aniyah Depression Sister 2 Aniyah Alcohol abuse Sister 3 Shanita Epilepsy Sister 5 Meme Relation Name Status Comments Brother 1 Stiven Alive Brother 2 Demetrio Alive Father Maternal Grandmother Mother Tati Alive Nephew Sister 1 Va Alive Sister 2 Aniyah Alive Sister 3 Shanita Alive Sister 4 Glorimari Alive Sister 5 Meme Alive Social History Tobacco Use Types Packs/Day Years [...] Orientation Heterosexual (straight) 05/13 9:45 AM EST Last Filed Vital Signs Vital Sign Reading Time Taken Comments Blood Pressure 114/71 12/09/2020 3:00 PM EDT Pulse 108 12/09/2020 3:00 PM EDT Temperature 35.9 ??C (96.7 ??F) 12/09/2020 3:00 PM ED T Respiratory Rate 18 11/07/2020 12:00 PM EDT Oxygen Saturation 98% 11/07/2020 12:00 PM EDT Inhaled Oxygen Concentration - - Weight 96.3 kg (212 lb 3.2 oz) 12/09/2020 3:00 P M EDT Height 157.5 cm (5' 2 ) 12/09/2020 3:00 PM EDT Body Mass Index 38.81 12/09/2020 3:00 PM EDT Plan of Treatment Health Maintenance Due Date Last Done Comments Hepatitis B Vaccines (1 of 3 - 19+ 3-dose series) 1997 Pap Smear (Ages 21-65) 1999 Mammogram 2018 Colonoscopy 2023 COVID-19 Vaccine (2023-2 5 season) 2024 Influenza Vaccine 2025 05/25/2020, 07/14/2019 DTaP/Tdap/Td Vaccines (2 - T d or Tdap) 09/29/2030 09/29/2020 Hepatitis C Virus Screening Completed 04/08/2020 HIV Screening Completed 09/29/2020, 04/08/2020 Pneumococcal Vaccine: Pediatric (0-5 Years) and At-Risk Patients (6 to 49 Years) Aged Out No longer eligible b ased on patient's age to complete this topic Procedures Procedure Name Priority Date/Time Associated Diagnosis Comments HIV 1/2 AG/AB CMIA REFLEX TO CONFIRMATION Routine 09/29/2020 3:36 PM EDT Third trimester HEPATITIS C VIRUS (HCV) ANTIBODY HPCB Routine 04/08/2020 11:00 AM EDT Less than 8 weeks gestation of from Last 3 Months or Most Recently Relevant to Health Maintenance Results * HIV 1/2 Ag/Ab CMIA Reflex to Confirmation (09/29/2020 3:36 PM EDT) Pathologist [facility] [place] HIV 1/2 Ag/Ab CMIA Nonreactive Nonreactive HOSPITAL LAB Comment: Results show no evidence of infection by HIV 1/2. If clinically indicated, repeat CMIA or test by nucleic acid amplification. Performed at [facility], [place], [place] ??CT License 0385 ??CLIA [id number] Blood specimen (specimen) Blood specimen / Unknown 09/29/2020 3:36 PM EDT 09/29/2020 6:22 PM EDT us Audrey Luevano MD LAB BLOOD ORDERABLES Marizol l Result HOSPITAL LAB * Hepatitis C Virus (HCV) Antibody (04/08/2020 11:00 AM EDT) Pathologist [facility] [place] Hepatitis C Antibody 0.15 0.00 - 0.79 S/CO ratio HOSPITAL LAB Hepatitis C Antibody Interpretation Nonreactive Nonreactive HOSPITAL LAB Comment:Performed at [facility], [place], [place] License 0385 CLIA [id number] Blood specimen (specimen) Heel structure / Unknown 04/08/2020 11:00 AM EDT 04/08/2020 12:32 PM EDT us Rachele Cheung MD LAB BLOOD ORDERABLES Final Result HOSPITAL LAB from Last 3 Months or Most Recently Relevant to Health Maintenance Insurance [facility] Advance Directives * Full Code (Latest Code Status on File) Date Activated Date Inactivated Comments 11/04/2020 6:06 PM * Full Code Date Activated Date Inactivated Comments 11/03/2020 11:19 AM 11/04/2020 9:26 AM * Full Code Date Activated Date Inactivated Comments 09/01/2020 7:27 PM 11/03/2020 11:15 AM * Full Code Date Activated Date Inactivated Comments 03/19/2018 6:42 PM 06/28/2019 5:12 PM Care Teams Fire Supervisor Relationship Specialty Start Date End Date Max Arizmendi [address] [place], [place] [address] [place] [address] PCP - General 09/01/19
--- OUTSIDE RECORDS SUMMARY | 2024-11-17 12:50 | XMS_ITS | Encounter Summary ---
Author Organization [facility] Address [address] [place] [address] Care Team Providers Care Driller Machine Name Role Phone Max Arizmendi Primary Care Provider Tammy Naylor LPCA Unavailable Anusha Molina ALUMINIZER Unavailable Rachele Ornelas SWEETBREAD TRIMMER Unavailable Encounter Details Date Type Department Care Team (Late st Contact Info) Description 09/07/2020 Lab Requisition [place] [address] [place] [address] Dar Robison MD [address] [place], [place] [phone] Encounter for laboratory testing for COVID-19 virus Social History Tobacco Use Types Packs/Day Years [...] or suspected to have Coronavirus / COVID-19? Unable to assess 09/05/2020 9:54 AM EST documented as of this encounter Plan of Treatment Not on file documented as of this encounter Procedures Procedure Name Priority Date/Time Associated Diagnosis Comments COVID-19 (SARS-COV-2) - [facility] Routine 09/07/2020 11:45 AM EST Encounter for laboratory testing for COVID-19 virus [ICD-10-CM] documented in this encounter Results * COVID-19 (SARS-COV-2) ([facility]) (09/07/2020 11:45 AM EST) COVID-19 RT-PCR NOT-DETEC LEONARDO Not-Detec leonardo 09/08/2020 3:10 PM EST [facility] [place] Comment:Interpretation: The viral RNA was not detected, making the COVID-19 diagnosis less likely. Clinical correlation is highly recommended.Final report signed by Leslie Carlson, Ph.D., Laboratory DirectorTests performed at [facility] Nasopharyngeal swab / Unknown 09/07/2020 11:45 AM EST 09/07/2020 11:45 AM EST Narrative [facility] [place] - 09/08/2020 3:10 PM EST Performed by [facility] [address] [place] [address], CLIA# [id number] and [place] License# [id number] us Dar Robison MD MICROBIOLOGY - GENERAL ORDER JIMMIE Final Result MERLIN ARAUZ documented in this encounter Visit Diagnoses Diagnosis Encounter for laboratory testing for COVID-19 virus documented in this encounter Care Teams Driller Machine Relationship Specialty Start Date End Date Max Arizmendi [address] [place] [address] PCP - General 09/01/19 Tammy Naylor LPCA [address] [place] [address] Clinician Social Work 05/03/20 02/21/22 Anusha Molina APRN [address] [place] [address] Primary BH Attending Psychiatry, General 05/06/2002/22 Rachele Ornelas LCSW [address] [place] [address] Bank Officer Clinical Social Work 05/24/20 02/21/22 documented as of this encounter
--- OUTSIDE RECORDS SUMMARY | 2024-11-17 12:50 | XMS_ITS | Encounter Summary ---
Author Organization [facility] Address [address] [place] [address] Care Team Providers Care Teller Manager Name Role Phone Max Arizmendi Primary Care Provider [phone] Tammy Naylor LPCA Unavailable Anusha Molina SCHOOL DIRECTOR Unavailable Rachele Ornelas CAD LIBRARIAN Unavailable Encounter Details Date Type Department Care Team (Late st Contact Info) Description 09/05/2020 Telephone [facility] Maternal Medicine [address] [phone] Phoenix Gallardo MD [address] [place] [address] Social History Tobacco Use Types Packs/Day Years [...] on filedocumented in this encounter Care Teams Teller Manager Relationship Specialty Start Date End Date Ugo Max [address] [place] [address] PCP - General 09/01/19 Tammy Naylor LPCA [address] [place] [address] Clinician Social Work 05/03/20 02/21/22 Anusha Molina APRN [address] [place] [address] Primary BH Attending Psychiatry, General 05/06/2002/22 Backer Rachele Lawrence LCSW [address] [place] [address] Cash Management Officer Clinical Social Work 05/24/20 02/21/22 documented as of this encounter
--- OUTSIDE RECORDS SUMMARY | 2024-11-17 12:50 | XMS_ITS | Clinical Summary ---
Author Organization [facility] Address [address] [place] [address] Care Team Providers Care Silviculture Forester Name Role Phone Unavailable Primary Care Provider Unavailabl e Surgical History Surgery Date Site/Laterality Comments CHOLECYSTECTOMY PROCEDURE:CHOLECYSTECTOMY SECTION PROCEDURE: SECTION Medical History Medical History Date Comments Anxiety DX:Anxiety Depression DX:Depression Bipolar disorder (CMS/HCC V24, CMS/HCC V28) DX:Bipolar disorder (HCC) Family History Medical History Relation Name Comments Depression Brother Dementia Maternal Grandmother Depression Mother Depression Sister Relation Name Status Comments Brother Maternal Grandmother Mother Sister Social History Tobacco Use Types Packs/Day Years Used Date Smoking Tobacco: Some Days Smokeless Tobacco: Never Alcohol Use Standard Drinks/Week Comments No 0 (1 standard drink = 0.6 oz pur e alcohol) Comments Unknown Sex and Gender Information Value Date Recorded Sex Assigned at Not on file Legal Sex Female 12:52 AM EST Gender Identity Not on file Sexual Orientation Not on file Obstetrics History Plan of Treatment Health Maintenance Due Date Last Done Comments Breast Cancer Screening 1978 DTaP,Tdap,and Td Vaccines (1 - Tdap) 1997 Hepatitis B Vaccines (1 of 3 - 19+ 3-dose series) 1997 Cervical Cancer Screening: P ap Smear 1999 COVID-19 Vaccine (2023-2 5 season) 2024 Influenza Vaccine (Season Ended) 2025 HIB Vaccines Aged Out No longer eligi [...] on patient's age to complete this topic MMR Vaccines Aged Out No longer eligi ble based on patient's age to complete this topic Meningococcal ACWY Vaccine Aged Out N o longer eligible based on patient's age to complete this topic Meningococcal B Vaccine Aged Out No l onger eligible based on patient's age to complete this topic Pneumococcal Vaccine: Pediat rics (0 to 5 Years) and At-Risk Patients (6 to 64 Years) Aged Out No longer eligible b ased on patient's age to complete this topic RSV Immunization Patients Un ryland 20 months Aged Out No longer eligible b ased on patient's age to complete this topic Varicella Vaccines Aged Out No longer eligible based on patient's age to complete this topic
--- OUTSIDE RECORDS SUMMARY | 2024-11-17 12:50 | XMS_ITS | Encounter Summary ---
Author Organization [facility] Address [address] [place] [address] Care Team Providers Care Choreography Director Name Role Phone Community, Pcp Primary Care Provider Unavailabl e Encounter Details Date Type Department Care Team Description 11/12/2017 Release of Information Medical Records [address] [place] [id number] Abstract, Provider Social History Tobacco Use Types Packs/Day Years Used Date Smoking Tobacco: Never Assessed Sex Assigned at Date Recorded Not on file documented as of this encounter Plan of Treatment Not on file documented as of this encounter Visit Diagnoses Not on filedocumented in this encounter Care Teams Choreography Director Relationship Specialty Start Date End Date Community, Pcp PCP - General Internal Medicine 10/21/17 documented as of this encounter
--- OUTSIDE RECORDS SUMMARY | 2024-11-17 12:50 | XMS_ITS | Encounter Summary ---
Author Organization [facility] Address [address] [place] [address] Care Team Providers Care Sales Executive Name Role Phone Max Arizmendi Primary Care Provider Tammy Naylor LPCA Unavailable Anusha Molina DIRECTOR TOXICOLOGY Unavailable Rachele Ornelas COMMERCIAL LOAN PROCESSOR Unavailable Encounter Details Date Type Department Care Team (Late st Contact Info) Description 11/25/2020 Scanned Document [facility] [address] [place] [phone] Josie Bingham MD [address] [place] [address] Social History Tobacco Use Types Packs/Day Years [...] on filedocumented in this encounter Care Teams Sales Executive Relationship Specialty Start Date End Date Ugo Destinycheng [address] [place] [address] PCP - General 09/01/19 Tammy Naylor LPCA [address] [place] [address] Clinician Social Work 05/03/20 02/21/22 Anusha Molina APRN [address] [place] [address] Primary BH Attending Psychiatry, General 05/06/2002/22 Rachele Ornelas LCSW [address] [place] [address] Manager Contracting Clinical Social Work 05/24/20 02/21/22 documented as of this encounter
[2024-11-17 14:14] LABS: MANUAL DIFF FLAG NO
[2024-11-17 14:20] LABS: Basophils Absolute Auto 0.1 X10*3/uL (0.0-0.2); Basophils Percent Auto 1.1 % (0-2); Eosinophils Absolute Auto 0.1 X10*3/uL (0.0-0.4); Eosinophils Percent Auto 2.3 % (0-4); Hematocrit 29.8 % (37.0-47.0); Hemoglobin 8.8 g/dl (12.0-16.0); Imm Gran Abs Auto 0.01 X10*3/uL (0.00-0.03); Imm Gran Pct Auto 0.2 % (0.0-0.4); Lymphocytes Absolute Auto 1.7 X10*3/uL (1.2-4.9); Lymphocytes Percent Auto 36.1 % (20-40); Mean Corpuscular HGB Conc 29.5 g/dl (31.0-35.0); Mean Corpuscular Hemoglobin 20.5 pg (27.0-33.0); Mean Corpuscular Volume 69.3 fL (80.0-98.0); Mean Platelet Volume 10.7 fL (9.4-12.3); Monocytes Absolute Auto 0.3 X10*3/uL (0.1-1.2); Monocytes Percent Auto 7.2 % (2-11); Neutrophils Absolute Auto 2.5 x10*3/uL (2.0-8.3); Neutrophils Percent Auto 53.1 % (45-73); Platelet Count 160 X10*3/uL (160-400); Red Cell Distribution Width 18.2 % (11.0-16.0); White Blood Count 4.7 X10*3/uL (4.8-10.8)
[2024-11-17 14:46] LABS: C Reactive Protein < 0.04 mg/dL (< or = 0.50)
[2024-11-17 15:03] LABS: Erythrocyte Sedimentation Rate 9 MM/HR (0-20)
[2024-11-24 16:04] LABS: Anti Nuclear Antibody Pattern Mitotic, Centrosome; Anti Nuclear Antibody Screen POSITIVE (NEGATIVE); Anti Nuclear Antibody Titer > OR = 1:1280 titer
== END 2024-11-17 11:21 | disposition home or self-care (01) ==
LOC: HO.CHCLDS 11:20
PROVIDERS: Visit Provider Internal Medicine
DX: M25.50 Pain in unspecified joint (principal)
CPT/HCPCS: 36415; 85025; 85652; 86038; 86039; 86140

== ENCOUNTER 2024-11-24 11:18 | Outpatient (REF) | payer MEDICAID, SELFPAY ==
--- OUTSIDE RECORDS SUMMARY | 2024-11-24 12:37 | XMS_ITS | Encounter Summary ---
Author Organization [facility] Address [address] [place] [address] Care Team Providers Care Hooker On Name Role Phone Max Arizmendi Primary Care Provider Tammy Naylor LPCA Unavailable [phone] Anusha Molina IP TECHNOLOGY TRANSACTIONS ATTORNEY Unavailable Rachele Ornelas COMMUNITY HEALTH PLANNING DIRECTOR Unavailable Encounter Details Date Type Department Care Team (Late st Contact Info) Description 03/24/2020 [facility] 85 [facility] [address] [place] [phone] Dolly Enamorado MD 85 [facility] [address] [place] [address] Hypothyroidism (acquired) (Primary Dx) Social History Tobacco [...] PM EDT) TSH, Highly Sensitive 3.35 mIU/L [facility] NL1 Comment: ?Reference Range ?> or = 20 Years ??0.40-4.50 ? Ranges ?First trimester ?0.26-2.66 ?Second trimester ?? 0.55-2.73 ?Third trimester ?0.43-2.91 Blood specimen (specimen) Heel structure / Unknown 04/15/2020 2:52 PM EDT 04/15/2020 2:52 PM EDT Narrative [facility] - 04/16/2020 3:40 AM EDT FASTING:NO FASTING: NO Resulting Agency Comment Performing Organization Information: ?Site ID: [email or web address] ?Name: [email or web address] ?Address: [address] [place] [id number] ?Director: Deanne Mcdonough MD Dolly Enamorado MD LAB BLOOD ORDERABLES Final R esult Performing Organization Address [facility] Co de Phone Number [facility] [address] [place] [address] * T4, Free (04/15/2020 2:52 PM EDT) T4, Free 1.3 0.8 - 1.8 ng/dL [facility] Blood specimen (specimen) Heel structure / Unknown 04/15/2020 2:52 PM EDT 04/15/2020 2:52 PM EDT Narrative [facility] - 04/16/2020 3:40 AM EDT FASTING:NO FASTING: NO Resulting Agency Comment Performing Organization Information: ?Site ID: [id number] ?Name: [email or web address] ?Address: [address] [place] [phone] ?Director: Deanne Mcdonough MD Dolly Enamorado MD LAB BLOOD ORDERABLES Final R esult Performing Organization Address [facility] [place] de Phone Number [facility] [address] [place] [address] documented in this encounter Visit Diagnoses Diagnosis Hypothyroidism (acquired)- Primary Unspecified hypothyroidism documented in this encounter Care Teams Hooker On Relationship Specialty Start Date End Date Max Arizmendi [address] [place] [address] PCP - General 09/01/19 Tammy Naylor LPCA [address] [place] [address] Clinician Social Work 05/03/20 02/21/22 Anusha Molina APRN [address] [place] [address] Primary BH Attending Psychiatry, General 05/06/2002/22 Backer Rachele Lawrence LCSW [address] [place] [address] Bean Weigher Clinical Social Work 05/24/20 02/21/22 documented as of this encounter
--- OUTSIDE RECORDS SUMMARY | 2024-11-24 12:37 | XMS_ITS | Encounter Summary ---
Author Organization [facility] Address [address] [place] [address] Care Team Providers Care Cadd Technician Name Role Phone Max Arizmendi Primary Care Provider [phone] Tammy Naylor LPCA Unavailable Anusha Molina PAYER SPECIALIST Unavailable Rachele Ornelas OFFICE AUTOMATION TECHNICIAN Unavailable Reason for Visit * Reason Comments Medication Refill Encounter Details Date Type Department Care Team (Late st Contact Info) Description 02/21/2021 Refill [facility] 85 [facility] [address] [place] [address] Dolly Enamorado MD 85 [facility] [address] [place], [place] [phone] Diet controlled gestational diabetes mellitus (GDM) in [...] trimester documented in this encounter Care Teams Cadd Technician Relationship Specialty Start Date End Date Max Arizmendi [address] [place] [phone] PCP - General 09/01/19 Tammy Naylor LPCA [address] [place] [address] Clinician Social Work 05/03/20 02/21/22 Anusha Molina APRN [address] [place] [address] Primary BH Attending Psychiatry, General 05/06/2002/22 Backer Rachele Lawrence LCSW [address] [place] [address] Town Planner Clinical Social Work 05/24/20 02/21/22 documented as of this encounter
--- OUTSIDE RECORDS SUMMARY | 2024-11-24 12:38 | XMS_ITS | Encounter Summary ---
Author Organization [facility] Address [address] [place] [address] Care Team Providers Care Automobile Parker Name Role Phone Max Arizmendi Primary Care Provider [phone] Tammy Naylor LPCA Unavailable [phone] Anusha Molina LITHOGRAPH PRINTER Unavailable [phone] Rachele Ornelas MANAGER ART Unavailable [phone] Encounter Details Date Type Department Care Team (Late st Contact Info) Description 09/07/2020 Lab Requisition [place] [address] [place] [address] Dar Robison MD [address] [place], [place] [phone] Encounter for laboratory testing for COVID-19 virus [...] Date/Time Associated Diagnosis Comments COVID-19 (SARS-COV-2) - [facility] Routine 09/07/2020 11:45 AM EST Encounter for laboratory testing for COVID-19 virus [ICD-10-CM] documented in this encounter Results * COVID-19 (SARS-COV-2) ([facility]) (09/07/2020 11:45 AM EST) COVID-19 RT-PCR NOT-DETEC LEONARDO Not-Detec leonardo 09/08/2020 3:10 PM EST [facility] [place] Comment:Interpretation: The viral RNA was not detected, making the COVID-19 diagnosis less likely. Clinical correlation is highly recommended.Final report signed by Leslie Carlson, Ph.D., Laboratory DirectorTests performed at [facility] Nasopharyngeal swab / Unknown 09/07/2020 11:45 AM EST 09/07/2020 11:45 AM EST Narrative [facility] - 09/08/2020 3:10 PM EST Performed by [facility] [address] [place] [address], CLIA# [id number] and [place] License# [id number] us Dar Robison MD MICROBIOLOGY - GENERAL ORDER JIMMIE Final Result MERLIN ARAUZ documented in this encounter Visit Diagnoses Diagnosis Encounter for laboratory testing for COVID-19 virus documented in this encounter Care Teams Automobile Parker Relationship Specialty Start Date End Date Max Arizmendi [address] [place] [address] PCP - General 09/01/19 Tammy Naylor LPCA [address] [place] [address] Clinician Social Work 05/03/20 02/21/22 Anusha Molina APRN [address] [place] [address] Primary BH Attending Psychiatry, General 05/06/2002/22 Rachele Ornelas LCSW [address] [place] [address] Master Carpenter Clinical Social Work 05/24/20 02/21/22 documented as of this encounter
--- OUTSIDE RECORDS SUMMARY | 2024-11-24 12:38 | XMS_ITS | Encounter Summary ---
Author Organization [facility] Address [address] [place] [address] Care Team Providers Care Telephone Assembler Name Role Phone Max Arizmendi Primary Care Provider [phone] Tammy Naylor LPCA Unavailable [phone] Anusha Molina ROOFER HELPER VINYL COATING Unavailable [phone] Rachele Ornelas THORACIC MEDICINE PHYSICIAN Unavailable Encounter Details Date Type Department Care Team (Late st Contact Info) Description 09/29/2020 Prep for Surgery [facility] [address] [place] [phone] Lori Lau MD [address] [place] [address] Diet controlled gestational diabetes mellitus (GDM) in [...] Primary documented in this encounter Care Teams Telephone Assembler Relationship Specialty Start Date End Date Max Arizmendi [address] [place] [address] PCP - General 09/01/19 Tammy Naylor LPCA [address] [place] [address] Clinician Social Work 05/03/20 02/21/22 Anusha Molina APRN [address] [place] [address] Primary Attending Psychiatry, General 05/06/2002/22 Rachele Ornelas LCSW [address] [place] [address] Custom Seamstress Clinical Social Work 05/24/20 02/21/22 documented as of this encounter
--- OUTSIDE RECORDS SUMMARY | 2024-11-24 12:38 | XMS_ITS | Encounter Summary ---
Author Organization [employer] Address [address] 7[address] [place] [address] Care Team Providers Care Flat Folder Name Role Phone Betsy Waldrop MD Primary Care Provider [phone] Encounter Details Date Type Department Care Team ([facility] st Contact Info) Description 11/19/2024 Orders Only [facility] MED & PEDS [address] [place], [place] [phone] Velia Hudson MD [address] [place] [address] Anemia, unspecified type (Primary Dx) Social History Tobacco Use Types [...] Type Priority Associated Diagnoses Orde r Schedule Iron And Total Iron Binding Capacity Lab Routine Anemia, unspecified type Expected: 11/19/2024, Expires: 11/19/2025 Ferritin Lab Routine Anemia, unspecified type Expected: 11/19/2024, Expires: 11/19/2025 Reticulocyte Count Lab Routine Anemia, unspecified type Expected: 11/19/2024, Expires: 11/19/2025 documented as of this encounter Visit Diagnoses Diagnosis Anemia, unspecified type- Primary documented in this encounter Additional Health Concerns Assessment Noted Time PHQ-9 Depression Total Score: 13 024 8:42 AM EDT documented as of this encounter Care Teams Flat Folder Relationship Specialty Start Date End Date Betsy Waldrop MD [address] [place] [address] PCP - General Family Medicine 08/30/22 documented as of this encounter
--- OUTSIDE RECORDS SUMMARY | 2024-11-24 12:38 | XMS_ITS | Encounter Summary ---
Author Organization [employer] Address [address] [place] [address] Care Team Providers Care Processes Chemical Design Engineer Name Role Phone Betsy Waldrop MD Primary Care Provider [phone] Reason for Visit * Reason Onset Date Comments Reschedule 12/17/2023 chart prep 12/17/2023 Encounter Details Date Type Department Care Team ([facility] st Contact Info) Description 12/17/2023 Telephone [facility] MED & PEDS [address] [place] [address] Betsy Waldrop MD [address] [place] [address] Reschedule; chart prep Social History Tobacco Use [...] 12/16 PAP appointment. Please contact pt at [phone] documented in this encounter Plan of Treatment Not on file documented as of this encounter Visit Diagnoses Not on filedocumented in this encounter Additional Health Concerns Assessment Noted Time PHQ-9 Depression Total Score: 13 024 8:42 AM EDT documented as of this encounter Care Teams Processes Chemical Design Engineer Relationship Specialty Start Date End Date Betsy Waldrop MD [address] [place] [phone] PCP - General Family Medicine 08/30/22 documented as of this encounter
--- OUTSIDE RECORDS SUMMARY | 2024-11-24 12:38 | XMS_ITS | Encounter Summary ---
Author Organization [employer] Address [address] 7t [place] [address] Care Team Providers Care Submarine Cable Equipment Technician Name Role Phone Betsy Waldrop MD Primary Care Provider [phone] Reason for Visit * Reason Onset Date Comments Nurse Triage 04/23/2024 Encounter Details Date Type Department Care Team ([facility] st Contact Info) Description 04/23/2024 Telephone [facility] CHC MED & PEDS [address] [place], [place] [phone] Betsy Waldrop MD [address] [place] [address] Nurse Triage Social History Tobacco Use Types [...] documented as of this encounter Care Teams Submarine Cable Equipment Technician Relationship Specialty Start Date End Date Betsy Waldrop MD [address] [place] [address] PCP - General Family Medicine 08/30/22 documented as of this encounter
--- OUTSIDE RECORDS SUMMARY | 2024-11-24 12:38 | XMS_ITS | Encounter Summary ---
Author Organization [facility] Address [address] [place] [address] Care Team Providers Care Anatomic Pathology Manager Name Role Phone Max Arizmendi Primary Care Provider [phone] Tammy Naylor LPCA Unavailable Anusha Molina SUPERINTENDENT CEMETERY Unavailable Rachele Ornelas SHOVEL OPERATOR Unavailable Encounter Details Date Type Department Care Team (Late st Contact Info) Description 11/21/2020 Scanned Document [facility] [address] [place] [address] [phone] Rachele Cheung MD [address] [place] [address] Social History Tobacco Use Types Packs/Day Years [...] on filedocumented in this encounter Care Teams Anatomic Pathology Manager Relationship Specialty Start Date End Date Ugo Destinycheng [address] [place] [address] PCP - General 09/01/19 Tammy Naylor LPCA [address] [place] [address] Clinician Social Work 05/03/20 02/21/22 Anusha Molina APRN [address] [place] [address] Primary BH Attending Psychiatry, General 05/06/2002/22 Rachele Ornelas LCSW [address] [place] [address] Accounting Manager Clinical Social Work 05/24/20 02/21/22 documented as of this encounter
--- OUTSIDE RECORDS SUMMARY | 2024-11-24 12:38 | XMS_ITS | Encounter Summary ---
Author Organization [facility] Address [address] [place] [address] Care Team Providers Care Court Crier Name Role Phone UgoMax Primary Care Provider [phone] Reason for Visit * Reason Comments Medication Refill Encounter Details Date Type Department Care Team (Late st Contact Info) Description 07/19/2022 Refill [facility] [address] [facility] [address] [place] [address] Dolly Enamorado MD [address] [facility] [address] [place], [place] [phone] Primary hypothyroidism Social History Tobacco Use Types [...] hypothyroidism documented in this encounter Care Teams Court Crier Relationship Specialty Start Date End Date Max Arizmendi [address] [place] [address] PCP - General 09/01/19 documented as of this encounter
--- OUTSIDE RECORDS SUMMARY | 2024-11-24 12:38 | XMS_ITS | Encounter Summary ---
Author Organization [facility] Address [address] [place] [address] Care Team Providers Care Storage Battery Charger Name Role Phone Max Arizmendi Primary Care Provider Tammy Naylor LPCA Unavailable [phone] Anusha Molina ONLINE TUTOR Unavailable Rachele Ornelas TACK COVERER Unavailable Encounter Details Date Type Department Care Team (Late st Contact Info) Description 10/27/2020 Prep for Surgery [facility] [address] [place] [address] Ashley Piña MD [facility] [address] [facility] [address] [place] [address] Social History Tobacco Use Types Packs/Day Years [...] A/P d/w Dr. Bassem Piña MD PGY-3 [facility] INSPECTOR INSULATION (p) 10/27/20 12:01 PM Chief Complaint: I'm [...] oz) M CS-LTranv LANI Comments: preeclampsia Past SIGN INSTALLER History: Denies history of abnormal pap smear Denies history of STIs Past Medical History: Past Medical History: Diagnosis Date ??? Anxiety ??? Depressed ??? Disease of thyroid gland Past Surgical History: Past Surgical History: Procedure Laterality Date ??? SECTION ??? CHOLECYSTECTOMY ??? MD NJX DX/THER SBST INTRLMNR LMBR/SAC W/IMG GDN Right 03/22/2018 Procedure: IR Epidural Inject Steroid Lumbar/Sacral w/img; Surgeon: Rakesh Garvey MD; Location: [facility]; Service: Interventional Radiology Social History: Denies tobacco [...] tablet 3 ??? Blood Glucose Monitoring Suppl (P&R Labpak) w/Device Kit USE TO TEST BLOOD GLUCOSE [...] by mouth daily. 14 packet 1 ??? Bmz-YnPgky-ZH-DHA ( MULTIVITAMIN PER STATE FORMULARY) tablet Take 1 tablet by mouth daily as directed. Dispense Brand per State Formulary. 30 tablet 11 ??? SUPPLY [facility] cradle. Length of need 6 months. 1 [...] on filedocumented in this encounter Care Teams Storage Battery Charger Relationship Specialty Start Date End Date Max Arizmendi [address] [place] [address] PCP - General 09/01/19 Tammy Naylor LPCA [address] [place] [address] Clinician Social Work 05/03/20 02/21/22 Anusha Molina APRN [address] [place] [address] Primary BH Attending Psychiatry, General 05/06/2002/22 Backer Rachele Lawrence LCSW [address] [place] [address] Manager Category Clinical Social Work 05/24/20 02/21/22 documented as of this encounter
--- OUTSIDE RECORDS SUMMARY | 2024-11-24 12:38 | XMS_ITS | Clinical Summary ---
Author Organization [employer] Address [address] [place] [address] Care Team Providers Care Director Of Corporate Real Estate Name Role Phone Betsy Waldrop MD Primary Care Provider [phone] Allergies Active Allergy Reactions Criticality Noted Date Comments Diphenhydramine Itching Low 05/13/2020 Medications * This document contains information received from the source organization and may not represent a complete record from that organization. Multiple Vitamin (MULTIVITAMIN ADULT PO) Daily, 0 Refills, Maintenance, 09/26/22 14:40:00 EDT, Partial fill upon patient request if the prescription is for a schedule II opioid drug. 09/27/19 23 Active hydrOXYzine pamoate (Vistaril) 25 MG capsule Take 1 capsule (25 mg) by mouth every 8 (eight) hours if needed for itching or anxiety. 90 capsule 09/26/19 24 Active OLANZapine zydis (ZyPREXA ZYDIS) 5 MG disintegrating tabletIndications: Bipolar II disorder (CMS/HCC) Take 1 tablet (5 mg) by mouth at bedtime. 90 tablet 1 10/10/19 24 Active acetaminophen (Tylenol Extra Strength) 500 MG tablet Take 2 tablets (1,000 mg) by mouth every 8 (eight) hours if needed for mild pain or moderate pain. 90 tablet 10/10/19 24 Active pantoprazole (ProtoNix) 40 MG EC tablet Take 40 mg by mouth in the morning. 02/27/20 23 Active Carafate 1 GM/10ML suspension TAKE 10 MLS BY MOUTH 2 TIMES A DAY 02/27/20 23 Active naproxen (Naprosyn) 500 MG tablet TAKE 1 TABLET(500 MG) BY MOUTH IN THE MORNING AND AT BEDTIME NEEDED FOR MODERATE PAIN 60 tablet 11/15/19 24 Active FLUoxetine (PROzac) 20 MG capsuleIndications :Bipolar II disorder (CMS/HCC) TAKE 1 CAPSULE(20 MG) BY MOUTH IN THE MORNING 90 capsule 1 01/08/20 24 Active triamcinolone (Kenalog) 0.5 % ointment Apply topically 2 times daily. 90 g 04/27/20 24 Active ferrous gluconate (Fergon) 324 (38 Fe) MG tablet Take 1 tablet (324 mg) by mouth with breakfast. 30 tablet 11 06/10/20 24 025 Active levothyroxine (Synthroid, Levoxyl) 100 MCG tabletIndications: Acquired hypothyroidism TAKE 1 TABLET BY MOUTH EVERY MORNING ON AN EMPTY STOMACH 90 tablet 1 10/21/19 25 Active ibuprofen 600 MG tabletIndications: Polyarthralgia Take 1 tablet (600 mg) by mouth every 8 (eight) hours if needed for mild pain. 90 tablet 1 11/04/19 25 025 Active Active Problems Problem Noted Date Diagnosed [...] intervention , [facility] needed, Patient to engage [...] Center 10/10/2023 3:15 PM Betsy Waldrop MD [facility] Insomnia due to other mental disorder 05/13/2020 Overview (10/03/2022): Last Assessment & Plan: Type: chronic illness - moderate exacerbation, moderate progression Status: symptomatic, unchanged, aggravated by current stressor(s) Plan: ? ? Yani was counseled about and agreed to try to utilize the following sleep hygiene techniques : maintain a regular sleep routine (set bedtime and wake up), take naps when infant is sleeping and share nighttime feeding responsibility [...] recommended reduction of 20-30% of maintenance calories; federal agent referral offered. Recommended to decrease soda and sugary beverage consumption. Recommended at least 20 g per meal of protein to assist with satiety. Recommended at least 150 min/week of moderate intensity exercise. Referral to bariatric medicine. Acquired hypothyroidism 09/10/2019 Assessment & Plan (08/30/2022 2:06 PM EST): No records available for review, requested [place] to get medical release form to get [...] (08/30/2022): Added automatically from request for surgery [id number] Last Assessment & Plan: Continue diet control. Patient did not bring meter or log today. Seen by nutrition Gestational thrombocytopenia 09/01/2020 10/04/2022 Overview (10/03/2022): Plts 144 on 09/01/20 Needs repeat CBC next visit (10/06/20) Last Assessment & Plan: Plt 158 at last visit 10/27/20 Encounters Date Type Department Care Team Description 11/19/2024 Orders Only [facility] [address] [place] [address] Velia Hudson MD Anemia, unspecified type (Primary Dx) 11/17/2024 Telephone [facility] [address] [place] [address] Betsy Waldrop MD Referral 11/03/2024 3:45 PM EDT Office Visit [facility] [address] [place] [address] Velia Hudson MD Polyarthralgia (Primary Dx) 11/03/2024 Travel 10/28/2024 Travel 10/20/2024 Refill [facility] [address] [place] [address] Betsy Waldrop MD Acquired hypothyroidism 09/18/2024 Population Health Risk Score [facility] () Department [address] [place] [phone] Provider, Population Health Generic from Last 3 Months Immunizations Immunization Administration Dates Next Due Influenza, IIV3, injectable [...] series) 1997 Mammogram 2018 COVID-19 Vaccine ( - 2023- season) 2024 Depression Screening 12/05/2024 12/06/2023, 12/06/19 24 SDOH Screening 02/27/2025 02/28/2024 Alcohol/Substance Use Screening 04/27/2025 04/27/2024 Disability Screening 10/28/2025 10/28/2024 Tobacco Screening 11/04/2025 11/04/2024 Zoster Vaccines (1 [...] Procedure Name Priority Date/Time Associated Diagnosis Comments CBC WITH AUTO DIFFERENTIAL Routine 11/17/2024 11:23 AM EDT Polyarthralgia C-REACTIVE PROTEIN Routine 11/17/2024 11 :23 AM EDT Polyarthralgia SED RATE BY MODIFIED WESTERGREN Routine 11/17/2024 11:23 AM EDT Polyarthralgia HEPATITIS C AB W/REFL TO HCV RNA, [...] Recently Relevant to Health Maintenance Results * (ABNORMAL) CBC auto differential (11/17/2024 11:23 AM EDT) White Blood Count 4.7(L) 4.8 - 10.8 X10*3/uL [facility] Red Blood Count 4.30 4.20 - 5.50 X10*6/uL [facility] Hemoglobin 8.8(L) 12.0 - 16.0 g/dl [facility] Hematocrit 29.8(L) 37.0 - 47.0 % [facility] Mean Corpuscular Volume 69.3(L) 80.0 - 98.0 fL [facility] Mean Corpuscular Hemoglobin 20.5(L) 27.0 - 33.0 pg [facility] Mean Corpuscular HGB Conc 29.5(L) 31.0 - 35.0 g/dl [facility] Red Cell Distribution Width 18.2(H) 11.0 - 16.0 % [facility] Platelet Count 160 160 - 400 X10*3/uL [facility] Mean Platelet Volume 10.7 9.4 - 12.3 fL [facility] Neutrophils Percent Auto 53.1 45 - 73 % [facility] Imm Gran Pct Auto 0.2 0.0 - 0.4 % [facility] Lymphocytes Percent Auto 36.1 20 - 40 % [facility] Monocytes Percent Auto 7.2 2 - 11 % [facility] Eosinophils Percent Auto 2.3 0 - 4 % [facility] Basophils Percent Auto 1.1 0 - 2 % [facility] NRBC Pct Auto 0.0 0.0 - 0.2 /100WBC [facility] Neutrophils Absolute Auto 2.5 2.0 - 8.3 x10*3/uL [facility] Imm Gran Abs Auto 0.01 0.00 - 0.03 X10*3/uL [facility] Lymphocytes Absolute Auto 1.7 1.2 - 4.9 X10*3/uL [facility] Monocytes Absolute Auto 0.3 0.1 - 1.2 X10*3/uL [facility] Eosinophils Absolute Auto 0.1 0.0 - 0.4 X10*3/uL [facility] Basophils Absolute Auto 0.1 0.0 - 0.2 X10*3/uL [facility] NRBC Abs Auto 0.000 0.0 - 0.012 X10*3/uL [facility] Blood Venous blood specimen / Unknown 11/17/2024 11:23 AM EDT 11/17/2024 2:07 PM EDT us Velia Hudson MD LAB BLOOD ORDERABLES Final Result Performing Organization Address [facility] Co de Phone Number [facility] [address] [place] [phone] * Sed Rate by Modified Westergren (11/17/2024 11:23 AM EDT) Erythrocyte Sedimentation Rate 9 0 - 20 MM/HR [facility] Comment:Patients with polycy themia and many hemoglobin abnormalitiesmay have depressed sed rates whereas patients with anemiamay have elevated sed rates. Blood Venous blood specimen / Unknown 11/17/2024 11:23 AM EDT 11/17/2024 2:07 PM EDT us Velia Hudson MD LAB BLOOD ORDERABLES Final Result Performing Organization Address [facility] Co de Phone Number [facility] [address] [place] [phone] * C-reactive Protein (11/17/2024 11:23 AM EDT) Pathologist [facility] C Reactive Protein <0.04 < or = 0.50 mg/dL [facility] Blood Venous blood specimen / Unknown 11/17/2024 11:23 AM EDT 11/17/2024 2:07 PM EDT us Velia Hudson MD LAB BLOOD ORDERABLES Final Result Performing Organization Address [facility] Co de Phone Number [facility] [address] [place] [phone] * Hepatitis C Antibody with Reflex to HCV, RNA, Quantitative, Real-Time PCR (05/26/2024 3:54 PM EST) Pathologist [facility] Hepatitis C Antibody Nonreactive Nonreactive [facility] Comment:Antibodies to HCV no t detected; does not exclude early acuteHCV infection. Blood Venous blood specimen / Unknown 05/26/2024 3:54 PM EST 05/26/2024 3:54 PM EST Betsy Waldrop MD LAB BLOOD ORDERABLES Final Re sult Performing Organization Address City/[facility]/ZIP Co de Phone Number [facility] [address] [place] [phone] * HIV-1/2 Antigen and Antibodies, Fourth Generation, with Reflexes (05/26/2024 3:54 PM EST) HIV AB/AG Nonreactive Nonreactive [facility] Comment:HIV-1 p24 Ag and/or HIV-1/HIV-2 Ab not detected.A test result that is nonreactive does not exclude thepossibility of exposure to or infection with HIV-1 and/orHIV-2. Nonreactive results in this assay for individualswith prior exposure to HIV-1 and/or HIV-2 may be due toantigen and antibody levels that are below the limit ofdetection of this assay.The [employer] HIV Ag/Ab Combo assay result andsupplemental assay results should be interpreted inconjunction with the patient's clinical presentation,history and other laboratory results. If the results areinconsistent with clinical evidence, additional testing issuggested to confirm the result. Blood Venous blood specimen / Unknown 05/26/2024 3:54 PM EST 05/26/2024 3:54 PM EST Betsy Waldrop MD LAB BLOOD ORDERABLES Final Re sult Performing Organization Address [facility]/ZIP Co de Phone Number [facility] [address] [place] [phone] [phone] * Pap Smear (02/04/2024 12:00 AM EDT) SOURCE: SEE NOTE [facility] Comment:None given Report Status: TNP [facility] Clinical Information: SEE NOTE [facility] Comment:None given LMP: SEE NOTE [facility] Comment:NONE GIVEN Prev. PAP: SEE NOTE [facility] Comment:NONE GIVEN Prev. BX: SEE NOTE [facility] Comment:NONE GIVEN Statement Of Adequacy: SEE NOTE [facility] Comment:Satisfactory for gavin luation.Endocervical/transformation zone componentpresent. General Categorization: [facility] Interpretation/Result: SEE NOTE [facility] Comment:Cytology Results: Ne gative for intraepitheliallesion or malignancy. Cytology Comment SEE NOTE [facility] Comment:This Pap test has be en evaluated with computerassisted technology. Leather Shaver: SEE NOTE [facility] Comment:YP, CT(ASCP)CT scree jessica location: [place] [address] Review Leather Shaver: SEE NOTE [facility] Comment:SL, CT(ASCP)CT scree jessica location: [place] [address] Pathologist [facility] PAP Infection [facility] See Note SEE NOTE [facility] Comment:EXPLANATORY NOTE:The Pap is a screening test for cervical cancer. It isnot a diagnostic test and is subject to false negativeand false positive results. It is most reliable when asatisfactory sample, regularly obtained, is submittedwith relevant clinical findings and history, and whenthe Pap result is evaluated along with historic andcurrent clinical information.THIS TEST WAS PERFORMED AT:[employer] [address] [id number] VALLE MD Pap Vial Vaginal structure / Unknown 02/04/2024 02/04/2024 Narrative [facility] - 02/07/2024 10:36 AM EDT SEE SCANNED RESULTS IN EMR us Betsy Waldrop MD LAB PATHOLOGY ORDERABLES Marizol benitez Result [facility] [address] [place] [phone] [phone] * HPV mRNA E6/E7 w/Reflex to HPV Genotypes 16, 18/45 (02/04/2024 12:00 AM EDT) HPV nRNA E6/E7 NOT DETECTED [facility] Comment:Methodology: Transcr iption-Mediated AmplificationThis assay detects E6/E7 viral messenger RNA (mRNA) from 14high-risk HPV types(16,18,31,33,35,39,45,51,52,56,58,59,66,68).Cervical sources are required for HPV testing.If a vaginal source from a patient who has had atotal hysterectomy with removal of cervix wassubmitted, please contact the testing laboratoryfor alternative testing options.For additional information, please refer [email or web address]/faq/SXJ630c5(This link if provided for information/educational purposes only.)THIS TEST PERFORMED AT:[employer] [address] [phone] DIRECTOR: PERLA VALLE MD HPV mRNA E6/E7 [facility] HPV 16 RNA [facility] HPV 18/45 RNA [facility] Vaginal Fluid Cervix uteri structure / Unknown 02/04/2024 02/04/2024 Narrative [facility] - 02/07/2024 10:36 AM EDT SEE SCANNED RESULTS IN EMRCollection Date: [id number] by: FIDE Carr: Cervix us Betsy Waldrop MD LAB CYTOLOGY ORDERABLES Final Result [facility] [address] [place] [phone] [phone] * Lipid Panel, Standard (12/17/2023 9:14 AM EDT) Triglycerides 53 <150 mg/dL [facility] Comment:Desirable Triglyceri de: less than 150 mg/dLBorderline High Triglyceride 150-199 mg/dLHigh Triglyceride: 200-499 mg/dLVery High Triglyceride: greater than or equal to 5OO mg/dL Cholesterol 149 <200 mg/dL [facility] Comment:Desirable Cholestero l: less than 200 mg/dLBorderline High Cholesterol: 200-239 mg/dLHigh Cholesterol: greater than 239 mg/dL LDL Cholesterol Calculated 83 <100 mg/dL [facility] Comment:Desirable LDL: less than 100 mg/dLNear Optimal/Above Optimal LDL: 110- 129 mg/dLBorderline High LDL: 130-159 mg/dLHigh LDL: 160-189 mg/dLVery High LDL: greater than or equal to 190 mg/dL HDL Cholesterol 56 >40 mg/dL [facility] Comment:Desirable HDL: great er than 40 mg/dL Note: This HDL assay may give artificially low results in patients with liver disease. 12/17/2023 9:14 AM EDT 12/17/2023 9:14 AM EDT us Generic External Data Provider LAB BLOOD ORDERAB LES Final Result Performing Organization Address City/State/[facility] Co de Phone Number [facility] [address] [place] [phone] from Last 3 Months or Most Recently Relevant to Health Maintenance Insurance [facility] C3 Care Teams Director Of Corporate Real Estate Relationship Specialty Start Date End Date Betsy Waldrop MD [address] [place] [phone] PCP - General Family Medicine 08/30/22
--- OUTSIDE RECORDS SUMMARY | 2024-11-24 12:38 | XMS_ITS | Encounter Summary ---
Author Organization Formerly [facility] Address [address] [place] [address] Care Team Providers Care Material Disposition Inspector Name Role Phone Max Arizmendi Primary Care Provider Tammy Naylor LPCA Unavailable Anusha Molina PSYCH NP Unavailable Rachele Ornelas DRAFTER REFRIGERATION Unavailable Encounter Details Date Type Department Care Team (Late st Contact Info) Description 09/05/2020 Telephone [facility] Maternal Medicine [address] [phone] [place] Gallardo MD [address] [place] [address] Social History Tobacco Use Types Packs/Day Years [...] on filedocumented in this encounter Care Teams Material Disposition Inspector Relationship Specialty Start Date End Date Ugo Max [address] [place] [address] PCP - General 09/01/19 Tammy Naylor LPCA [address] [place] [address] Clinician Social Work 05/03/20 02/21/22 Anusha Molina APRN [address] [place] [address] Primary BH Attending Psychiatry, General 05/06/2002/22 Backer Rachele Lawrence LCSW [address] [place] [address] Fluorescent Lighting Model Maker Clinical Social Work 05/24/20 02/21/22 documented as of this encounter
--- OUTSIDE RECORDS SUMMARY | 2024-11-24 12:38 | XMS_ITS | Encounter Summary ---
Author Organization [facility] Address [address] [place] [address] Care Team Providers Care Inspector Clip On Sunglasses Name Role Phone Max Arizmendi Primary Care Provider Tammy Naylor LPCA Unavailable Anusha Molina CHART CLERK Unavailable [phone] Rachele Ornelas HOUSEKEEPING WORKER Unavailable Encounter Details Date Type Department Care Team (Late st Contact Info) Description 11/25/2020 Scanned Document [facility] [address] [place] [phone] Josie Bingham MD [address] [place] [address] Social History Tobacco Use Types Packs/Day Years [...] on filedocumented in this encounter Care Teams Inspector Clip On Sunglasses Relationship Specialty Start Date End Date Ugo Destinycheng [address] [place] [address] PCP - General 09/01/19 Tammy Naylor LPCA [address] [place] [address] Clinician Social Work 05/03/20 02/21/22 Anusha Molina APRN [address] [place] [address] Primary BH Attending Psychiatry, General 05/06/2002/22 Rachele Ornelas LCSW [address] [place] [address] Green Pipefitter Clinical Social Work 05/24/20 02/21/22 documented as of this encounter
--- OUTSIDE RECORDS SUMMARY | 2024-11-24 12:38 | XMS_ITS | Clinical Summary ---
Author Organization [facility] Address [address] [place] [address] Care Team Providers Care Mr Teacher Name Role Phone Unavailable Primary Care Provider [...]
--- OUTSIDE RECORDS SUMMARY | 2024-11-24 12:38 | XMS_ITS | Encounter Summary ---
Author Organization [facility] Address [address] [place] [address] Care Team Providers Care Hide Cooking Operator Name Role Phone Max Arizmendi Primary Care Provider Tammy Naylor LPCA Unavailable Anusha Molina REIMBURSEMENT DIRECTOR Unavailable Rachele Ornelas MIXED LIVESTOCK FARMER Unavailable Reason for Visit * Reason Comments Medication Refill Encounter Details Date Type Department Care Team (Late st Contact Info) Description 12/07/2020 Refill [facility] [address] [place] [phone] Josie Bingham MD [address] [place], [place] [id number] History of 2 sections Social History Tobacco [...] sections documented in this encounter Care Teams Hide Cooking Operator Relationship Specialty Start Date End Date Max Arizmendi [address] [place] [address] PCP - General 09/01/19 Tammy Naylor LPCA [address] [place] [address] Clinician Social Work 05/03/20 02/21/22 Anusha Molina APRN [address] [place] [address] Primary BH Attending Psychiatry, General 05/06/2002/22 BackRachele Coley LCSW [address] [place] [address] Telemarketing Representative Clinical Social Work 05/24/20 02/21/22 documented as of this encounter
--- OUTSIDE RECORDS SUMMARY | 2024-11-24 12:38 | XMS_ITS | Encounter Summary ---
Author Organization [employer] Address [address] [facility] 7t [place] [address] Care Team Providers Care Metal Patternmaker Name Role Phone Betsy Waldrop MD Primary Care Provider [phone] Encounter Details Date Type Department Care Team (Late st Contact Info) Description 12/04/2022 Abstract [facility] Information Management [address] [place] [address] Betsy Waldrop MD [address] [place] [address] Social History Tobacco Use Types Packs/Day Years [...] Noted Time PHQ-9 Depression Total Score: 12 10/04/ 023 1:23 PM EDT documented as of this encounter Care Teams Metal Patternmaker Relationship Specialty Start Date End Date Betsy Waldrop MD [address] [place] [address] PCP - General Family Medicine 08/30/22 documented as of this encounter
--- OUTSIDE RECORDS SUMMARY | 2024-11-24 12:38 | XMS_ITS | Clinical Summary ---
Author Organization [facility] Address [address] [place] [address] Care Team Providers Care Plant And Instrument Engineer Name Role Phone Unavailable Primary Care Provider [...] with Friends and Family Never 09/10/2019 Attends Druze Services Never 09/09 Active Member of Clubs [...] this topic ObrienVeroniqueYani Personal/Family Self [address] [address] Obrien,Yani Behavioral Health Self 1980 [address] [address]
--- OUTSIDE RECORDS SUMMARY | 2024-11-24 12:38 | XMS_ITS | Clinical Summary ---
Author Organization [facility] Address [address] [place] [address] Care Team Providers Care Logistics Supervisor Name Role Phone Max Arizmendi Primary Care Provider [phone] Allergies Active Allergy Reactions Criticality Noted Date [...] empty stomach. 90 tablet 1 2 Active Ood-PtSqvb-SK-DHA (Vitafol-One) 29-1-200 MG CapIndications:Esha haas is a [...] (09/30/2020): Added automatically from request for surgery [id number] Assessment & Plan (11/03/2020 10:48 AM EDT): [...] cm today at 24w6d. GS planned with [facility] 09/06/20 Allergic dermatitis 07/14/2020 Overview (07/14/2020): [...] was recommended to per her provider at [facility] Assessment & Plan (08/30/2021 4:27 PM [...] 04/11/2020 Overview (04/11/2020): 04/11/2020: Offer vaccine PP. [facility] Assessment & Plan (11/03/2020 10:47 AM EDT): [...] past but not on meds since 2018. account services coordinator referral placed. DF Assessment & Plan (04/27/2020 [...] (03/22/2018): Added automatically from request for surgery [id number] Assessment & Plan (04/27/2020 4:24 PM EDT): Patient reports history of herniated disk and sciatica. Will have anesthesia consult later in . Lumbar radiculopathy 03/19/2018 020 Overview (03/22/2018): Added automatically from request for surgery [id number] Immunizations Immunization Administration Dates Next Due Influenza [...] to Confirmation (09/29/2020 3:36 PM EDT) Pathologist [facility] HIV 1/2 Ag/Ab CMIA Nonreactive Nonreactive HOSPITAL LAB Comment: Results show no evidence of infection by HIV 1/2. If clinically indicated, repeat CMIA or test by nucleic acid amplification. Performed at [facility], [place], [place] License 0385 ??CLIA [id number] Blood specimen (specimen) Blood specimen / Unknown 09/29/2020 3:36 PM EDT 09/29/2020 6:22 PM EDT us Audrey Luevano MD LAB BLOOD ORDERABLES Marizol l Result HOSPITAL LAB * Hepatitis C Virus (HCV) Antibody (04/08/2020 11:00 AM EDT) Pathologist [facility] Hepatitis C Antibody 0.15 0.00 - 0.79 S/CO ratio HOSPITAL LAB Hepatitis C Antibody Interpretation Nonreactive Nonreactive HOSPITAL LAB Comment:Performed at [facility], [place], [place] License 0385 CLIA [id number] Blood specimen (specimen) Heel structure / Unknown 04/08/2020 11:00 AM EDT 04/08/2020 12:32 PM EDT us Rachele Cheung MD LAB BLOOD ORDERABLES Final Result HOSPITAL LAB from Last 3 Months or Most Recently Relevant to Health Maintenance Insurance [facility] Advance Directives * Full Code (Latest Code Status on File) Date Activated Date Inactivated Comments 11/04/2020 6:06 PM * Full Code Date Activated Date Inactivated Comments 11/03/2020 11:19 AM 11/04/2020 9:26 AM * Full Code Date Activated Date Inactivated Comments 09/01/2020 7:27 PM 11/03/2020 11:15 AM * Full Code Date Activated Date Inactivated Comments 03/19/2018 6:42 PM 06/28/2019 5:12 PM Care Teams Logistics Supervisor Relationship Specialty Start Date End Date Max Arizmendi [address] [place], [place] [address]bari [place] [address] PCP - General 09/01/19
--- OUTSIDE RECORDS SUMMARY | 2024-11-24 12:38 | XMS_ITS | Encounter Summary ---
Author Organization [employer] Address [address] [address] 7[address] [place] [address] Care Team Providers Care It Program Auditor Name Role Phone Betsy Waldrop MD Primary Care Provider [phone] Encounter Details Date Type Department Care Team (Late st Contact Info) Description 09/26/2023 Telephone [facility] [address] [place] [address] Betsy Waldrop MD [address] [place], [place] [phone] Social History Tobacco Use Types Packs/Day Years Used Date Smoking Tobacco: Every Day Cigarettes Passive Smoke Exposure: Current Smokeless Tobacco: Never Alcohol Use Standard Drinks/Week Comments Never 0 (1 standard drink = 0.6 oz pur e alcohol) Depression Answer Date Recorded Patient Health Questionnaire-9 Score 12 10/04/2022 Housing Stability Answer Date Recorded What is your housing situation today? I have alyssa samina 04/22/[address] you li [...] one being able to take her to [facility]. * Telephone Encounter - Lorena Katz [...] documented as of this encounter Care Teams It Program Auditor Relationship Specialty Start Date End Date Betsy Waldrop MD [address] [place] [address] PCP - General Family Medicine 08/30/22 documented as of this encounter
[2024-11-24 14:29] LABS: Immature Retic Fraction 19.5 % (3.0-15.9); Retic HGB Equivalent 21.1 pg (30.0-35.0); Reticulocyte Percent 1.2 % (0.5-1.8); Reticulocytes Absolute 0.055 X10*6/uL (0.026-0.095)
[2024-11-24 14:42] LABS: Iron 11 mcg/dL (30-160); Percent Iron Saturation 3 % (15-50); Total Iron Binding Capacity 417 mcg/dL (228-428); Unsaturated Iron Binding 406 ug/dL
[2024-11-24 14:56] LABS: Ferritin 4 ng/mL (10-250)
== END 2024-11-24 11:19 | disposition home or self-care (01) ==
LOC: HO.CHCLDS 11:18
PROVIDERS: PCP Family Medicine; Visit Provider Internal Medicine
DX: D64.9 Anemia, unspecified (principal)
CPT/HCPCS: 36415; 82728; 83540; 85045

== ENCOUNTER 2025-02-23 10:27 | Outpatient (REF) | payer MEDICAID, SELFPAY ==
--- OUTSIDE RECORDS SUMMARY | 2025-02-23 11:49 | XMS_ITS | Clinical Summary ---
Author Organization [facility] Address [address] [place] [address] Care Team Providers Care Echo Tech Name Role Phone Unavailable Primary Care Provider [...] with Friends and Family Never 09/10/2019 Attends Religion Services Never 09/09 Active Member of Clubs [...] Cancer Screening (Colonoscopy) 2023 Influenza Vaccine (#1) 2025 RSV Ped < 20 months Aged Out No longe r eligible based on patient's age to complete this topic ObrienVeroniqueYani Personal/Family Self 1980 [address] [address] Obrien,Yani Behavioral Health Self 1980 [address] [facility] [facility] [address] [address]
--- OUTSIDE RECORDS SUMMARY | 2025-02-23 11:49 | XMS_ITS | Encounter Summary ---
Author Organization [employer] Address [address] [facility] [address] 7[address] [place] [address] Care Team Providers Care Ductfixing Plumber Name Role Phone Betsy Waldrop MD Primary Care Provider [phone] Reason for Visit * Reason Onset Date Comments Lab Orders 02/18/2025 Encounter Details Date Type Department Care Team (Late st Contact Info) Description 02/18/2025 Telephone [facility] MEDIC[facility] [address] [place] [address] Betsy Waldrop MD [address] [place] [address] Lab Orders Social History Tobacco Use Types Packs/Day Years [...] encounter Miscellaneous Notes * Telephone Encounter - Ramses Stein - 02/18/2025 9:39 AM EDT TC from pt looking to get a TB test for work . documented in this encounter Plan of Treatment Upcoming Encounters Date Type Department Care Team (Late st Contact Info) Description 03/09/2025 10:45 AM EDT Office Visit [facility] PED[facility] [address] [place] [address] India Parsons, FLATTENING MACHINE OPERATOR [address] [place] [address] Scheduled Orders Name Type Priority Associated Diagnoses Orde r Schedule T-SPOT .TB Lab Routine Routine general medical examination at a health care facility Expected: 02/18/2025 (Approximate), Expires: 02/18/2026 documented as of this encounter Visit Diagnoses Diagnosis Routine general medical examination at a health care facility documented in this encounter Additional Health Concerns Assessment Noted Time PHQ-9 Depression Total Score: 13 024 8:42 AM EDT documented as of this encounter Care Teams Ductfixing Plumber Relationship Specialty Start Date End Date Betsy Waldrop MD [address] [place] [address] PCP - General Family Medicine 08/30/22 documented as of this encounter
--- OUTSIDE RECORDS SUMMARY | 2025-02-23 11:49 | XMS_ITS | Clinical Summary ---
Author Organization [facility] Address [address] [place] [address] Care Team Providers Care Seed Production Field Supervisor Name Role Phone Unavailable Primary Care Provider [...] 1999 COVID-19 Vaccine (2023-2 5 season) 2024 Depression Screening 07/08/2024 Influenza Vaccine (#1) 2025 HIB Vaccines Aged Out No longer [...] 5 Years) and At-Risk Patients (6 to 49 [...]
--- OUTSIDE RECORDS SUMMARY | 2025-02-23 11:49 | XMS_ITS | Encounter Summary ---
Author Organization [facility] Address [address] [place] [address] Care Team Providers Care Kitchen Assistant Name Role Phone Max Arizmendi Primary Care Provider [phone] Tammy Naylor LPCA Unavailable Anusha Molina GUEST SERVICES AGENT Unavailable Rachele Ornelas HARDWOOD FLOOR INSTALLER Unavailable Reason for Visit * Reason Comments Medication Refill Encounter Details Date Type Department Care Team (Late st Contact Info) Description 02/21/2021 Refill [facility] [address] [facility] [address] [place] [address] Dolly Enamorado MD [address] [facility] [address] [place], [place] [phone] Diet controlled gestational diabetes mellitus (GDM) in [...] trimester documented in this encounter Care Teams Kitchen Assistant Relationship Specialty Start Date End Date Max Arizmendi [address] [place] [id number] PCP - General 09/01/19 Tammy Naylor LPCA [address] [place] [address] Clinician Social Work 05/03/20 02/21/22 Anusha Molina APRN [address] [place] [address] Primary BH Attending Psychiatry, General 05/06/2002/22 Backer Rachele Lawrence LCSW [address] [place] [address] Plumber Helper Clinical Social Work 05/24/20 02/21/22 documented as of this encounter
[2025-02-26 01:03] LABS: TS Negative Control Passed; TS Panel A 3; TS Panel B 0; TS Positive Control Passed; TSpotTB Negative (Negative)
== END 2025-02-23 10:28 | disposition home or self-care (01) ==
LOC: HO.CHCLDS 10:27
PROVIDERS: PCP Family Medicine; Visit Provider Family Medicine
DX: Z00.00 Encounter for general adult medical examination without abnormal findings (principal); Z11.1 Encounter for screening for respiratory tuberculosis; E03.8 Other specified hypothyroidism
CPT/HCPCS: 36415; 84443; 86481

== ENCOUNTER 2025-03-12 12:51 | Outpatient (REF) | payer MEDICAID, SELFPAY ==
--- OUTSIDE RECORDS SUMMARY | 2025-03-09 10:45 | XMS_ITS | Encounter Summary ---
Author Organization [employer] Address [address] [facility] 7 [place] [address] Care Team Providers Care Box Toe Buffer Name Role Phone Betsy Waldrop MD Primary Care Provider [phone] Reason for Referral * PFT (Routine) - Authorized Specialty Diagnoses / Procedures Referred By Contac t Referred To Contact Diagnoses Wheezing Procedures Pulmonary Function Test India Parsons CNP [address] [place] [address] Phone: tel: fax: [facility] Referral ID Status Reason Start Date Expiration Date V isits Requested Visits Authorized [id number] Authorized 03/09/2025 03/09/2026 1 1 * Imaging (Routine) - Authorized Specialty Diagnoses / Procedures Referred By Contac t Referred To Contact Radiology Diagnoses Menorrhagia with regular cycle Procedures Us Pelvis complete India Parsons CNP [address] [place] [address] Phone: tel: fax: [facility] Referral ID Status Reason Start Date Expiration Date V isits Requested Visits Authorized [id number] Authorized 03/09/2025 03/09/2026 1 1 * Imaging (Routine) - Authorized Specialty Diagnoses / Procedures Referred By Fran nguyen Referred To Contact Radiology Diagnoses Menorrhagia with regular cycle Procedures US Pelvis Transvaginal India Parsons CNP [address] [place] [address] Phone: tel: fax: [facility] Referral ID Status Reason Start Date Expiration Date V isits Requested Visits Authorized [id number] Authorized 03/09/2025 03/09/2026 1 1 * Consultation (Routine) - Authorized Specialty Diagnoses / Procedures Referred By Fran nguyen Referred To Contact Endocrinology Diagnoses Acquired hypothyroidism India Parsons CNP [address] [place] [address] Phone: tel: fax: [facility] Endocrinology [address] [place], [place] Phone: tel: fax: Referral ID Status Reason Start Date Expiration Date Visits Requested Visits Authorized [id number] Authorized Specialty Services Required 03/09/2025 03/09/2026 6 6 * Consultation (Routine) - Authorized Specialty Diagnoses / Procedures Referred By Fran nguyen Referred To Contact Rheumatology Diagnoses Positive NORRIS (antinuclear antibody) India Parsons CNP [address] [place] [address] Phone: tel: fax: [facility] [address] [place], [place] Phone: tel: fax: Referral ID Status Reason Start Date Expiration Date Visits Requested Visits Authorized [id number] Authorized Specialty Services Required 03/09/2025 03/09/2026 12 12 * Consultation (Routine) - Authorized Specialty Diagnoses / Procedures Referred By Contac t Referred To Contact Gastroenterology Diagnoses Encounter for screening for malignant neoplasm of colon Encounter for physical examination India Parsons CNP [address] [place] [address] Phone: tel: fax: [facility] Gastroenterology [address] [place], [place] Phone: tel: fax: Referral ID Status Reason Start Date Expiration Date Visits Requested Visits Authorized [id number] Authorized Specialty Services Required 03/09/2025 03/09/2026 6 6 Reason for Visit * Reason Comments Annual Exam PE Encounter Details Date Type Department Care Team ([facility] st Contact Info) Description 03/09/2025 10:45 AM EDT Office Visit [facility] [address] [place] [address] India Parsons CNP [address] [place] [address] Encounter for screening for malignant neoplasm of colon (Primary Dx); Encounter for physical examination; Acquired hypothyroidism; Iron deficiency anemia due to chronic blood loss; Polyarthralgia; Sinus congestion; Positive NORRIS (antinuclear antibody); Menorrhagia with regular cycle; Wheezing Social History Tobacco Use Types Packs/Day Years Used Date Smoking Tobacco: Every Day Cigarettes Passive Smoke Exposure: Current Smokeless Tobacco: Never Tobacco Cessation:Ready to Q uit: Not Asked; Counseling Given: Not Answered Alcohol Use Standard Drinks/Week Comments Never 0 (1 standard drink = 0.6 oz pur e alcohol) Depression Answer Date Recorded Patient Health Questionnaire-9 Score 2 03/09/2025 Patient Health Questionnaire-9 Score 2 03/09/2025 Last PHQ-9: Questionnaire Data Not on file 0 03/09/2025 Housing Stability Answer Date Recorded What is your housing situation today? I have alyssa haas 03/01/[address] you li ve. Do you have problems with any of the following? None of the above 03/01/2025 Food Insecurity Answer Date Recorded Within the past 12 months, y ou worried that your food would run out before you got money to buy more: Never True 03/01/2025 Within the past 12 months,th e food you bought just didn't last and you didn't have enough money to get more: Never True Transportation Answer Date Recorded In the past 12 months, has l ack of transportation kept you from medical appts, meetings, work or from getting things needed for daily living? No 03/01/2025 Utilities Answer Date Recorded In the past 12 months, has t he electric, gas, oil or water company threatened to shut off services in your home? No 03/01/2025 Depression Answer Date Recorded Patient Health Questionnaire-2 Score 0 03/09/2025 Internet Access Answer Date Recorded Internet Access Q1 Yes 03/01/2025 Internet Access Q2 Not on file 03/01/2025 Comments Unknown Intention Date Recorded Ambivalent about becoming (find ing) 03/09/2025 Sex and Gender Information Value Date Recorded Sex Assigned at Female 05/07/2022 10:26 AM EDT Legal Sex Female 10:26 AM EDT Gender Identity Female 08/30/2022 1:31 PM EST Sexual Orientation Straight 08/30/2022 1: 31 PM EST documented as of this encounter Last Filed Vital Signs Vital Sign Reading Time Taken Comments Blood Pressure 96/60 03/09/2025 10:57 AM EDT Pulse 94 03/09/2025 10:57 AM EDT Temperature 36.8 C (98.2 F) 03/09/2025 10:57 AM EDT Respiratory Rate 18 03/09/2025 10:57 AM EDT Oxygen Saturation 100% 03/09/2025 10:57 AM EDT Inhaled Oxygen Concentration - - Weight 55.3 kg (122 lb) 03/09/2025 10:57 AM EDT Height 152.4 cm (5') 03/09/2025 10:57 AM EDT Body Mass Index 23.83 03/09/2025 10:57 AM EDT documented in this encounter Functional Status * Over the past 2 weeks, how often have you been bothered by any of the following problems? Question Answer Date of Assessment Author Patient Health Questionnaire -2 Score 0 03/09/2025 11:01 AM EDT Sa tri Merida [place] * Little interest or pleasure in doing things Answer Date of Assessment Author Not at all 03/09/2025 11:01 AM Guerline Flaherty [place] * Feeling down, depressed, or hopeless Answer Date of Assessment Author Not at all 03/09/2025 11:01 AM Guerline Flaherty [place] * Trouble falling or staying asleep, or sleeping too much Answer Date of Assessment Author Several days 03/09/2025 11:01 AM Guerline Flaherty [place] * Feeling tired or having little energy Answer Date of Assessment Author Several days 03/09/2025 11:01 AM Guerline Flaherty [place] * Poor appetite or overeating Answer Date of Assessment Author Not at all 03/09/2025 11:01 AM Guerline Flaherty [place] * Feeling bad about yourself - or that you are a failure or have let yourself or your family down Answer Date of Assessment Author Not at all 03/09/2025 11:01 AM Guerline Flaherty [place] * Trouble concentrating on things, such as reading the newspaper or watching television Answer Date of Assessment Author Not at all 03/09/2025 11:01 AM Guerline Flaherty [place] * Moving or speaking so slowly that other people could have noticed? Or the opposite - being so fidgety or restless that you have been moving around a lot more than usual. Answer Date of Assessment Author Not at all 03/09/2025 11:01 AM Guerline Flaherty [place] * Thoughts that you would be better off or hurting yourself in some way Answer Date of Assessment Author Not at all 03/09/2025 11:01 AM Guerline Flaherty [place] * Patient Health Questionnaire-9 Score Answer Date of Assessment Author 2 03/09/2025 11:01 AM Guerline Flaherty [place] * How difficult have these problems made it for you to do your work, take care of things at home, or get along with other people? Answer Date of Assessment Author Not difficult at all 03/09/2025 11:01 AM EDT Guerline Coronel [place] * Over the last 2 weeks, how often have you been bothered by any of the following problems? Question Answer Date of Assessment Author Feeling nervous, anxious, or on edge 2 03/09/2025 11:01 AM EDSa tri Duke [place] Not being able to stop or control worrying 1 03/09/2025 11:01 AM Sa tri Boyd [place] Worrying too much about different things 1 03/09/2025 11:01 AM EDSa tri [place] Trouble relaxing 1 03/09/2025 11:01 AM Guerline Boyd [place] Being so restless that it is hard to sit still 0 03/09/2025 11:01 AM Sa tri [place] Becoming easily annoyed or irritable 1 03/09/2025 11:01 AM Sa tri [place] Feeling afraid as if somethi ng awful might happen 0 03/09/2025 11:01 AM Sa tri [place] WILLIAM-7 Total Score 6 03/09/2025 11:01 AM Guerline Boyd [place] documented as of this encounter Progress Notes * India Parsons CNP - 03/09/2025 10:45 AM EDT Subjective: Yani Obrien is a 45 y.o. female with PMH of Hypothyroidism, CUCA, Infertility, who presents to the office for a physical exam. PCP Benjie. 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 Interim history: PCP referred pt to heme/onc for CUCA: Dr. Kerr, she reports she was unable to go due to schedulingconflicts. PCP referred pt for mammo, not yet completed PCP ordered Pelvic US to further evaluate infertility, she missed appt. Pt was referred to rheum for polyarthralgia, no visit notes seen at this time. Pt follows with [facility] weight management to monitor s/p LSG w/o hiatal hernia repair. Per provider note she has maintained a stable and healthy weight. Takes daily MV Current concerns: Dizziness that comes and goes.Pt reports that she is not consistently taking her iron supplement because she often forgets due to her busy schedule. She reports she also missed her first hematology appt as she was unable to get care for her child that day. Sinus congestion and reports a smell of burning wood x 1 month that is not perceived by others Intermittent SOB with exercise. She reports she is a smoker, she is currently vaping, was previously smoking cigarettes. Reports she is trying to use the vaporizer to help her quit. Denies known hx of asthma or COPD. 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 Substance use: -alcohol none -tobacco : nicotine vapes -opioids none Sexual activity: Monogamous amab partner Contraception: none, not actively seeking at this time but is open to possibility of Mental health: Reports her anxiety is well controlled, she is no longer taking medications. She is seeing a therapist which has been effective. Patient Health Questionnaire-9 Score: 2 (03/09/2025 11:01AM) Patient Health Questionnaire-2 Score: 0 (03/09/2025 11:01 AM) Thoughts that you would be better off or hurting yourself in some way: Not at all (03/09/2025 11:01 AM) WILLIAM-7 Total Score: 6 (03/09/2025 11:01 AM) Patient's last menstrual period was 03/09/2025. Periods occur each month, reports they have been heavier over the past year since her bariatric surgery. Periods have gone from 3-5 days to 7 days. She also reports heavy cramping during periods. Reports known hx of fibroids. Current Medications[4] Immunization History Administered Date(s) Administered Influenza, IIV3, injectable 05/25/2020 Influenza, Unspecified 07/14/2019 Influenza, seasonal, injectable, preservative free 04/27/2024 Influenza, seasonal, intradermal, preservative free 08/08/2012 MMR 11/06/2020 Pneumococcal Conjugate PCV 20 04/27/2024 Tdap 10/16/2016, 09/29/2020 Allergies[5] Review of Systems Constitutional: Negative for appetite change, chills, diaphoresis, fatigue, fever and unexpected weight change. HENT: Negative. Eyes: Negative. Respiratory: Positive for chest tightness, shortness of breath and wheezing. Negative for apnea andcough. Cardiovascular: Negative for chest pain and palpitations. Gastrointestinal: Negative for abdominal distention, abdominal pain, blood in stool, constipation, diarrhea, nausea and vomiting. Endocrine: Negative. Genitourinary: Negative. Musculoskeletal: Negative. Skin: Negative for pallor. Allergic/Immunologic: Negative. Neurological: Positive for dizziness. Negative for syncope, speech difficulty, weakness, light-headedness, numbness and headaches. Psychiatric/Behavioral: Negative. Vitals: 03/09/25 1057 BP: 96/60 BP Location: Left arm Patient Position: Sitting BP Cuff Size: Adult Pulse: 94 Resp: 18 Temp: 98.2 ??F (36.8 ??C) TempSrc: Oral SpO2: 100% Weight: 122 lb (55.3 kg) Height: 5' (1.524 m) Physical Exam Constitutional: Appearance: Normal appearance. She is normal weight. Cardiovascular: Rate and Rhythm: Normal rate and regular rhythm. Pulses: Normal pulses. Heart sounds: Normal heart sounds. No murmur heard. No friction rub. No gallop. Pulmonary: Effort: Pulmonary effort is normal. No respiratory distress. Breath sounds: Wheezing present. No rales. Neurological: General: No focal deficit present. Mental Status: She is alert and oriented to person, place, and time. Psychiatric: Mood and Affect: Mood normal. Behavior: Behavior normal. Thought Content: Thought content normal. Judgment: Judgment normal. Problem List Items Addressed This Visit Acquired hypothyroidism Relevant Medications ibuprofen 600 MG tablet Other Relevant Orders Referral to Endocrinology Lab Results Component Value Date TSH 2.71 02/23/2025 Pt adherent with medication She requests a specialty referral today to help her manage this condition I referred to endocrine Polyarthralgia Relevant Medications ibuprofen 600 MG tablet Iron deficiency anemia due to chronic blood loss Relevant Medications ibuprofen 600 MG tablet Will provide pt with [facility] hematology contact info to reschedule missed appt Encouraged consumption of iron rich foods and adherence to iron supplement. Will order bloodwork to evaluate anemia Other Visit Diagnoses Encounter for screening for malignant neoplasm of colon - Primary Relevant Orders Referral to Gastroenterology Routine colonoscopy due, referred to GI Encounter for physical examination Relevant Orders Referral to Gastroenterology Lipid Panel, Standard Hepatitis B Surface Antibody, Qualitative Hepatitis B Core Antibody, Total Hepatitis B surface antigen, EIA CBC auto differential Comprehensive Metabolic Panel PE today revealed expiratory wheeze, otherwise unremarkable PE Routine Screening and Health Maintenance Optometry: Yes Dentist: Yes BMD: n/a ASCVD risk: 45 y.o. female The 10-year ASCVD risk score (Deandra RODRIGUEZ, et al., 2019) is: 1.1% Values used to calculate the score: Age: 45 years Sex: Female Is Non- : No Diabetic: No Tobacco smoker: Yes Systolic Blood Pressure: 96 mmHg Is BP treated: No HDL Cholesterol: 56 mg/dL Total Cholesterol: 149 mg/dL Lab Review: orders written for new lab studies as appropriate; see orders Routine Cancer Screening Breast CA: due, previously ordered not yet completed, reordered today Cervical CA: last pap 02/04/2024 NILM, HPV Neg, next due 01/2029. Colon CA: due, referral ordered today Lung CA: Sinus congestion Relevant Medications fluticasone (Flonase) 50 MCG/ACT nasal spray No associated neuro symptoms or deficits Pt does suffer from chronic sinusitis and presents with congestion today I believe this phantosmia is 2/2 her sinus dysfunction I will rx flonase for symptomatic relief Advised pt to monitor sx Positive NORRIS (antinuclear antibody) Relevant Medications ibuprofen 600 MG tablet Other Relevant Orders Referral to Rheumatology Pt low persistent symmetrical polyarthralgia and given family history and positive NORRIS. New referral placed. Rheumatology office will contact to schedule appointment. She was seeing rheum prior, she would like to transfer her care to a new knock up assembler as she was unsatisfied with her prior care. Menorrhagia with regular cycle Relevant Orders US Pelvis Transvaginal Us Pelvis complete Pt does have history of fibroids Will reorder pelvic US to further evaluate menorrhagia Wheezing Relevant Medications fluticasone (Flonase) 50 MCG/ACT nasal spray albuterol 108 (90 Base) MCG/ACT inhaler Other Relevant Orders Pulmonary Function Test Will obtain PFTs Will trial prn albuterol Discussed indications for use and anticipated side effects F/u prn for new or worsening conditions [1] Patient Active Problem List Diagnosis Severe anxiety Bipolar II disorder (CMS/HCC) Smoker Thyromegaly Morbid obesity (CMS/HCC) Migraines Acquired hypothyroidism Insomnia due to other mental disorder Breast cancer screening by mammogram Lumbar back pain with radiculopathy affecting lower extremity Moderate depressive disorder Cervical cancer screening Polyarthralgia History of 2 sections Iron deficiency anemia due to chronic blood loss [2] Past Surgical History: Procedure Laterality Date SECTION, LOW TRANSVERSE x3 CHOLECYSTECTOMY GASTRIC RESTRICTION SURGERY gastric sleeve [3] No family history on file. [4] Current Outpatient Medications Medication Sig Dispense Refill acetaminophen (Tylenol Extra Strength) 500 MG tablet Take 2 tablets (1,000 mg) by mouth every 8 (eight) hours if needed for mild pain or moderate pain. 90 tablet 0 ferrous gluconate (Fergon) 324 (38 Fe) MG tablet Take 1 tablet (324 mg) by mouth every other day. 90 tablet 1 ibuprofen 600 MG tablet levothyroxine (Synthroid, Levoxyl) 100 MCG tablet TAKE 1 TABLET BY MOUTH EVERY MORNING ON AN EMPTY STOMACH 90 tablet 1 Multiple Vitamin (MULTIVITAMIN ADULT PO) Daily, 0 Refills, Maintenance, 09/26/22 14:40:00 EDT, Partial fill upon patient request if the prescription is for a schedule II opioid drug. naproxen (Naprosyn) 500 MG tablet TAKE 1 TABLET(500 MG) BY MOUTH IN THE MORNING AND AT BEDTIME NEEDED FOR MODERATE PAIN 60 tablet 0 albuterol 108 (90 Base) MCG/ACT inhaler Inhale 2 puffs every 4 (four) hours if needed for wheezing.18 g 0 fluticasone (Flonase) 50 MCG/ACT nasal spray Administer 2 sprays into each nostril Once per day. Shake gently. Before first use, prime pump. After use, clean tip and replace cap. 16 g 2 No current facility-administered medications for this visit. [5] Allergies Allergen Reactions Diphenhydramine Itching documented in this encounter Plan of Treatment Scheduled Orders Name Type Priority Associated Diagnoses Orde r Schedule Lipid Panel, Standard Lab Routine Encounter for physical examination Expected: 03/09/2025 (Approximate), Expires: 03/09/2026 Hepatitis B Surface Antibody, Qualitative Lab Routine Encounter for physical examination Expected: 03/09/2025 (Approximate), Expires: 03/09/2026 Hepatitis B Core Antibody, Total Lab Routine Encounter for physical examination Expected: 03/09/2025 (Approximate), Expires: 03/09/2026 Hepatitis B surface antigen, EIA Lab Routine Encounter for physical examination Expected: 03/09/2025 (Approximate), Expires: 03/09/2026 CBC auto differential Lab Routine Encounter for physical examination Expected: 03/09/2025 (Approximate), Expires: 03/09/2026 Comprehensive Metabolic Panel Lab Routine Encounter for physical examination Expected: 03/09/2025 (Approximate), Expires: 03/09/2026 US Pelvis Transvaginal Imaging Routine Menorrhagia with regular cycle Expected: 03/09/2025, Expires: 03/09/2026 Us Pelvis complete Imaging Routine Menorrhagia with regular cycle Expected: 03/09/2025, Expires: 03/09/2026 Pulmonary Function Test PFT Routine Wheezing Expected: 03/09/2025, Expires: 09/06/2025 Scheduled Referrals Name Type Priority Associated Diagnoses Orde r Schedule Referral to Gastroenterology Outpatient Referral Routine Encounter for screening for malignant neoplasm of colon Encounter for physical examination Expected: 03/09/2025 (Approximate), Expires: 03/09/2026 Referral to Rheumatology Outpatient Referral Routine Positive NORRIS (antinuclear antibody) Expected: 03/09/2025 (Approximate), Expires: 03/09/2026 Referral to Endocrinology Outpatient Referral Routine Acquired hypothyroidism Expected: 03/09/2025 (Approximate), Expires: 03/09/2026 documented as of this encounter Visit Diagnoses Diagnosis Encounter for screening for malignant neoplasm of colon- Primary Encounter for physical examination Acquired hypothyroidism Unspecified hypothyroidism Iron deficiency anemia due to chronic blood loss Iron deficiency anemia secondary to blood loss (chronic) Polyarthralgia Pain in joint, multiple sites Sinus congestion Other diseases of nasal cavity and sinuses Positive NORRIS (antinuclear antibody) Other and unspecified nonspecific immunological findings Menorrhagia with regular cycle Wheezing documented in this encounter Additional Health Concerns Assessment Noted Time PHQ-9 Depression Total Score: 2 03/09/20 25 11:01 AM EDT documented as of this encounter Care Teams Box Toe Buffer Relationship Specialty Start Date End Date Betsy Waldrop MD [address] [place] [id number] PCP - General Family Medicine 08/30/22 documented as of this encounter
--- OUTSIDE RECORDS SUMMARY | 2025-03-12 13:04 | XMS_ITS | Encounter Summary ---
Author Organization [employer] Address [address] [place] [address] Care Team Providers Care Guest Relations Associate Name Role Phone Betsy Waldrop MD Primary Care Provider [phone] Encounter Details Date Type Department Care Team (Latest Contact Info) Description 03/08/2025 Travel Social History Tobacco Use Types Packs/Day Years [...] Q2 Not on file 03/01/2025 Comments Unknown Sex and Gender Information Value [...] documented as of this encounter Care Teams Guest Relations Associate Relationship Specialty Start Date End Date Betsy Waldrop MD [address] [place] [address] PCP - General Family Medicine 08/30/22 documented as of this encounter
--- OUTSIDE RECORDS SUMMARY | 2025-03-12 13:04 | XMS_ITS | Encounter Summary ---
Author Organization [facility] Address [address] [place] [address] Care Team Providers Care Port Patrol Officer Name Role Phone Max Arizmendi Primary Care Provider Tammy Naylor LPCA Unavailable [phone] Anusha Molina MACHINE PLUG SHAPER Unavailable Rachele Ornelas CONTRACT FORESTER Unavailable Reason for Visit * Reason Comments Medication Refill Encounter Details Date Type Department Care Team (Late st Contact Info) Description 02/21/2021 Refill [facility] [address] [facility] [address] [place] [address] Dolly Enamorado MD [address] [facility] [address] [place], [place] [id number] Diet controlled gestational diabetes mellitus (GDM) in [...] trimester documented in this encounter Care Teams Port Patrol Officer Relationship Specialty Start Date End Date Max Arizmendi [address] [id number] PCP - General 09/01/19 Tammy Naylor LPCA [address] [place] [address] Clinician Social Work 05/03/20 02/21/22 Anusha Molina APRN [address] [place] [address] Primary BH Attending Psychiatry, General 05/06/2002/22 Backer Rachele Lawrence LCSW [address] [place] [address] Stamp Mounter Clinical Social Work 05/24/20 02/21/22 documented as of this encounter
--- OUTSIDE RECORDS SUMMARY | 2025-03-12 13:04 | XMS_ITS | Encounter Summary ---
Author Organization [facility] Address [address] [place] [address] Care Team Providers Care Remedy Developer Name Role Phone Max Arzimendi Primary Care Provider [phone] Tammy Naylor LPCA Unavailable [phone] Anusha Molina NURSE ANESTHETIST Unavailable Rachele Ornelas ULTRASOUND SONOGRAPHER Unavailable Encounter Details Date Type Department Care Team (Late st Contact Info) Description 03/24/2020 [facility] [address] [place] [phone] Dolly Enamorado MD 85 [facility] [address] [place] [address] Hypothyroidism (acquired) (Primary Dx) Social History Tobacco [...] PM EDT) TSH, Highly Sensitive 3.35 mIU/L [facility] Comment: Reference Range > or = 20 Years 0.40-4.50 Ranges First trimester 0.26-2.66 Second trimester 0.55-2.73 Third trimester 0.43-2.91 Blood specimen (specimen) Heel structure / Unknown 04/15/2020 2:52 PM EDT 04/15/2020 2:52 PM EDT Narrative [facility] - 04/16/2020 3:40 AM EDT FASTING:NO FASTING: NO Resulting Agency Comment Performing Organization Information: Site ID: [id number] Name: [email or web address] Address: [address] [place] [address], [place] [address] Director: Deanne Mcdonough MD us Dolly Enamorado MD LAB BLOOD ORDERABLES Final R esult [facility] [address] [place] [address], [place] [address] * T4, Free (04/15/2020 2:52 PM EDT) T4, Free 1.3 0.8 - 1.8 ng/dL [facility] Blood specimen (specimen) Heel structure / Unknown 04/15/2020 2:52 PM EDT 04/15/2020 2:52 PM EDT Narrative [facility] - 04/16/2020 3:40 AM EDT FASTING:NO FASTING: NO Resulting Agency Comment Performing Organization Information: Site ID: [id number] Name: [employer] [facility] Address: [address] [place] [address], [facility] [address] Director: Deanne Mcdonough MD Dolly Enamorado MD LAB BLOOD ORDERABLES Final R esult [facility] [address], [place] [address] documented in this encounter Visit Diagnoses Diagnosis Hypothyroidism (acquired)- Primary Unspecified hypothyroidism documented in this encounter Care Teams Remedy Developer Relationship Specialty Start Date End Date Max Arizmendi [address] [place] [address] PCP - General 09/01/19 Tammy Naylor LPCA [address] [place] [address] Clinician Social Work 05/03/20 02/21/22 Anusha Molina APRN [address] [place] [address] Primary BH Attending Psychiatry, General 05/06/2002/22 Backer Rachele Lawrence LCSW [address] [place] [address] Ornamenter Hand Clinical Social Work 05/24/20 02/21/22 documented as of this encounter
--- OUTSIDE RECORDS SUMMARY | 2025-03-12 13:04 | XMS_ITS | Encounter Summary ---
Author Organization [facility] Address [address] [place] [address] Care Team Providers Care Hr Intern Name Role Phone Max Arizmendi Primary Care Provider Tammy Naylor LPCA Unavailable Anusha Molina PORTFOLIO LEAD Unavailable Rachele Ornelas PRODUCTION AIDE Unavailable [phone] Encounter Details Date Type Department Care Team (Late st Contact Info) Description 11/25/2020 Scanned Document [facility] [address] [place] [phone] Josie Bingham MD [address] [place] [address] Social History Tobacco Use Types Packs/Day Years [...] on filedocumented in this encounter Care Teams Hr Intern Relationship Specialty Start Date End Date Ugo Destinycheng [address] [place] [address] PCP - General 09/01/19 Tammy Naylor LPCA [address] [place] [address] Clinician Social Work 05/03/20 02/21/22 Anusha Molina APRN [address] [place] [address] Primary BH Attending Psychiatry, General 05/06/2002/22 Rachele Ornelas LCSW [address] [place] [address] Hospital Attendant Clinical Social Work 05/24/20 02/21/22 documented as of this encounter
--- OUTSIDE RECORDS SUMMARY | 2025-03-12 13:05 | XMS_ITS | Encounter Summary ---
Author Organization [facility] Address [address] [place] [address] Care Team Providers Care Director Database Name Role Phone Max Arizmendi Primary Care Provider Tammy Naylor LPCA Unavailable Anusha Molina DYE HOUSE WORKER Unavailable [phone] Rachele Ornelas AIR PUMPER Unavailable [phone] Encounter Details Date Type Department Care Team (Late st Contact Info) Description 10/27/2020 Prep for Surgery [facility] [address] [place] [phone] Ashley Piña MD [facility] [address] [facility] [address] [place] [address] Social History Tobacco Use Types Packs/Day Years [...] A/P d/w Dr. 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 Anxiety ??? Depressed ??? Disease of thyroid gland Past Surgical History: Past Surgical History: Procedure Laterality Date ??? SECTION ??? CHOLECYSTECTOMY ??? MN NJX DX/THER SBST INTRLMNR LMBR/SAC W/IMG GDN Right 03/22/2018 Procedure: IR Epidural Inject Steroid Lumbar/Sacral w/img; Surgeon: Rakesh Garvey MD; Location: [facility]; Service: Interventional Radiology Social History: Denies tobacco [...] tablet 3 ??? Blood Glucose Monitoring Suppl (SmartCup) w/Device Kit USE TO TEST BLOOD GLUCOSE [...] by mouth daily. 14 packet 1 ??? Efv-NxToej-BI-DHA ( MULTIVITAMIN PER STATE FORMULARY) tablet Take 1 tablet by mouth daily as directed. Dispense Brand per State Formulary. 30 tablet 11 ??? SUPPLY [facility] cradle. Length of need 6 months. [...] on filedocumented in this encounter Care Teams Director Database Relationship Specialty Start Date End Date Max Arizmendi [address] [place] [address] PCP - General 09/01/19 Tammy Naylor LPCA [address] [place] [address] Clinician Social Work 05/03/20 02/21/22 Anusha Molina APRN [address] [place] [address] Primary BH Attending Psychiatry, General 05/06/2002/22 Backer Rachele Lawrence LCSW [address] [place] [address] Storage Facility Housekeeper Clinical Social Work 05/24/20 02/21/22 documented as of this encounter
--- OUTSIDE RECORDS SUMMARY | 2025-03-12 13:05 | XMS_ITS | Clinical Summary ---
Author Organization [employer] Address [address] [facility] [address] [address] [place] [address] Care Team Providers Care Contour Band Saw Operator Vertical Name Role Phone Betsy Waldrop MD Primary Care Provider [phone] Allergies Active Allergy Reactions Criticality Noted Date Comments Diphenhydramine Itching Low 05/13/2020 Medications * This document contains information received from the source organization and may not represent a complete record from that organization. Multiple Vitamin (MULTIVITAMIN ADULT PO) Daily, 0 Refills, Maintenance, 09/26/22 14:40:00 EDT, Partial fill upon patient request if the prescription is for a schedule II opioid drug. 023 Active acetaminophen (Tylenol Extra Strength) 500 MG tablet Take 2 tablets (1,000 mg) by mouth every 8 (eight) hours if needed for mild pain or moderate pain. 90 tablet 024 Active naproxen (Naprosyn) 500 MG tablet TAKE 1 TABLET(500 MG) BY MOUTH IN THE MORNING AND AT BEDTIME NEEDED FOR MODERATE PAIN 60 tablet 024 Active levothyroxine (Synthroid, Levoxyl) 100 MCG tabletIndications :Acquired hypothyroidism TAKE 1 TABLET BY MOUTH EVERY MORNING ON AN EMPTY STOMACH 90 tablet 1 025 Active ferrous gluconate (Fergon) 324 (38 Fe) MG tablet Take 1 tablet (324 mg) by mouth every other day. 90 tablet 1 025 Active ibuprofen 600 MG tablet 025 Active fluticasone (Flonase) 50 MCG/ACT nasal sprayIndications: Sinus congestion Administer 2 sprays into each nostril Once per day. Shake gently. Before first use, prime pump. After use, clean tip and replace cap. 16 g 2 025 2025 Active albuterol 108 (90 Base) MCG/ACT inhalerIndication s:Wheezing Inhale 2 puffs every 4 (four) hours if needed for wheezing. 18 g 025 2025 Active hydrOXYzine pamoate (Vistaril) 25 MG capsule Take 1 capsule (25 mg) by mouth every 8 (eight) hours if needed for itching or anxiety. 90 capsule 024 2024 Discontinued OLANZapine zydis (ZyPREXA ZYDIS) 5 MG disintegrating tabletIndications :Bipolar II disorder (CMS/HCC) Take 1 tablet (5 mg) by mouth at bedtime. 90 tablet 1 024 2024 Discontinued pantoprazole (ProtoNix) 40 MG EC tablet Take 40 mg by mouth in the morning. 023 2024 Discontinued Carafate 1 GM/10ML suspension TAKE 10 MLS BY MOUTH 2 TIMES A DAY 023 2024 Discontinued FLUoxetine (PROzac) 20 MG capsuleIndication s:Bipolar II disorder (CMS/HCC) TAKE 1 CAPSULE(20 MG) BY MOUTH IN THE MORNING 90 capsule 1 024 2024 Discontinued triamcinolone (Kenalog) 0.5 % ointment Apply topically 2 times daily. 90 g 024 2024 Discontinued lurasidone (Latuda) 40 MG tablet TAKE 1 TABLET WITH DINNER 025 2024 Discontinued clotrimazole (Lotrimin) 1 % cream apply topically to the affected area twice daily 025 2024 Discontinued senna-docusate sodium (Senokot-S) 8.6-50 MG tablet Take 1 tablet by mouth Once per day. 30 tablet 11 025 2024 Discontinued polyethylene glycol, PEG, 3350 (MiraLax) 17 GM/SCOOP powder Take 17 g by mouth Once per day. 527 g 2 025 2024 Discontinued Active Problems Problem Noted Date Diagnosed Date Iron deficiency anemia due to chronic blood loss 12/18/2024 Polyarthralgia 04/27/2024 Assessment & Plan (04/27/2024 10:34 [...] intervention , Patient to reach out to [facility] team as needed, Patient to engage in [...] in 2 weeks to assess symptoms. Recommended , patient declined for the moment. Future Appointments Date Time Provider Department Center 10/10/2023 3:15 PM Betsy Waldrop MD [facility] Insomnia due to other mental disorder 05/13/2020 Overview (10/03/2022): Last Assessment & Plan: Type: chronic illness - moderate exacerbation, moderate progression Status: symptomatic, unchanged, aggravated by current stressor(s) Plan: Yani was counseled about and agreed to [...] a severe headache not improved with medication. History of 2 sections 04/27/2020 Overview (12/18/2024): - G1- Pre-eclampsia with SF. delivered at 30 weeks after failed IOL. - G2- IOL. tachycardia and meconium. NRFHT remote from delivery. - Desires repeat . Scheduled for 11/21 11:30a Severe anxiety 09/10/2019 Smoker 09/10/2019 Morbid obesity 09/10/2019 Assessment & Plan (10/04/2022 5:01 PM EDT): Discussed calorie deficit, recommended reduction of 20-30% of maintenance calories; data management associate referral offered. Recommended to decrease soda and [...] (08/30/2022): Added automatically from request for surgery [id number] Last Assessment & Plan: Continue diet control. Patient did not bring meter or log today. Seen by nutrition Gestational thrombocytopenia 09/01/2020 10/04/2022 Overview (10/03/2022): Plts 144 on 09/01/20 Needs repeat CBC next visit (10/06/20) Last Assessment & Plan: Plt 158 at last visit 10/27/20 Encounters Date Type Department Care Team Description 03/09/2025 10:45 AM EDT Office Visit [facility] [address] [place] [address] India Parsons CNP Encounter for screening for malignant neoplasm of colon (Primary Dx); Encounter for physical examination; Acquired hypothyroidism; Iron deficiency anemia due to chronic blood loss; Polyarthralgia; Sinus congestion; Positive NORRIS (antinuclear antibody); Menorrhagia with regular cycle; Wheezing 03/09/2025 Travel 03/08/2025 Travel 03/05/2025 Telephone [facility] [address] [place] [address] Betsy Waldrop MD chart prep 03/01/2025 Patient Outreach [facility] [address] [place] [address] Betsy Waldrop MD Pre-visit Planning (SDOH negative, Tobacco screening positive. ) 02/18/[address] [address] Betsy Waldrop MD Lab Orders 02/16/2025 Telephone [facility] [address] [place] [address] Betsy Waldrop MD Appointment Request 12/31/[address] [address] Betsy Waldrop MD No Show 12/29/2024 Telephone [facility] [address] [place] [address] Betsy Waldrop MD chart prep 12/18/2024 3:15 PM EDT Telemedicine [facility] [address] [place] [address] Betsy Waldrop MD Acquired hypothyroidism (Primary Dx); Iron deficiency anemia due to chronic blood loss; Infertility counseling; TSH (thyroid-stimulating hormone deficiency); Encounter for screening mammogram for malignant neoplasm of breast 12/18/2024 Travel 12/17/2024 Telephone [facility] [address] [place] [address] Betsy Waldrop MD chart prep from Last 3 Months Immunizations Immunization Administration [...] Mass Index 23.83 03/09/2025 10:57 AM EDT Plan of Treatment Health Maintenance Due Date Last Done Comments CT Colonography 1978 Colonoscopy 1978 Colorectal Cancer Screening 1978 FIT DNA/Cologuard 1978 FIT 1978 FOBT 1978 Sigmoidoscopy 1978 Hepatitis B Vaccines (1 of 3 - 19+ 3-dose series) 1997 Mammogram 2018 COVID-19 Vaccine ( - 2023- season) 2025 Postponed from 03/08/2025 (Supply/Drug Shortage) Alcohol/Substance Use Screening 04/27/2025 04/27/2024 Disability Screening 10/28/2025 10/28/2024 Influenza Vaccine (#1) 2026 , 05/25/2020, 07/14/2019, Additional history exists Postponed from 03/08/2025 (Supply/Drug Shortage) SDOH Screening 03/01/2026 03/01/2025 Depression Screening 03/09/2026 03/09/2025, 03/09/20 Family Planning (PISQ) 03/09/2026 03/09/2025 Tobacco Screening 03/09/2026 03/09/2025 Zoster Vaccines (1 of 2) 02/06/2028 Lipid Panel 12/16/2028 12/17/2023, 05/0 10/2022, 10/17/2022 Cervical Cancer Screening 02/03/2029 HPV/Cotest 02/03/2029 02/04/2024 Pap Smear 02/03/2029 02/04/2024 DTaP/Tdap/Td Vaccines (3 - Td or Tdap) 09/29/2030 09/29/2020, 10/16/2016 RSV Patients and Patients Aged 60 years or older (1 - 1-dose 75+ series) 2053 Pneumococcal Vaccine: Pediatrics (0 to 5 Years) and At-Risk Patients (6 to 49) Years Completed 04/27/2024 HIV Screening Completed 05/26/2024, 09/29/2020 Hepatitis C Screening Completed 05/26/2024 HIB Vaccines [...] Procedure Name Priority Date/Time Associated Diagnosis Comments T-SPOT(R).TB Routine 02/23/2025 10:31 AM EDT Routine general medical examination at a [facility] TSH W/REFLEX TO FT4 Routine 02/23/2025 1 0:31 AM EDT Acquired hypothyroidism HEPATITIS C AB W/REFL TO HCV RNA, [...] Recently Relevant to Health Maintenance Results * T-SPOT??.TB (02/23/2025 10:31 AM EDT) T Spot TB Negative Negative [facility] Comment:A negative test resu lt does not exclude the possibilityof exposure to or infection with Mycobacteriumtuberculosis (M. tuberculosis). Patients with recentexposure to TB infected individuals exhibiting anegative T-SPOT.TB result should be considered forretesting within 6 weeks or if other relevant clinicalsymptoms indicate. Results from T-SPOT.TB testing mustbe used in conjunction with each individual'sepidemiological history, current medical status,and results of other diagnostic evaluations.The T-SPOT.TB test is qualitative and results arereported as positive, borderline, or negative, giventhat the test controls perform as expected. In linewith the Centers for Disease Control and Prevention's2010 recommendation to report quantitative measurementsalongside the qualitative result, the laboratoryprovides spot counts for informational purposes only.The T-SPOT.TB test should not be interpreted as aquantitative test. TS PANEL A 3 [facility] TS PANEL B 0 [facility] Negative Control Passed [facility] Positive Control Passed [facility] Comment:For additional infor emerald, please refer tohttp://education.Captricity.Euphoria App/faq/UBC269(This link is being provided for informational/educational purposes only.)THIS TEST WAS PERFORMED AT:[employer] [id number] [place] [address]AGKEYBHCOLIN GALVAN MD,PHD 02/23/2025 10:3 1 AM EDT 02/23/2025 1:55 PM EDT us Betsy Waldrop MD LAB BLOOD ORDERABLES Final Re sult [facility] [address] [place] [phone] * TSH W/Reflex to FT4 (02/23/2025 10:31 AM EDT) TSH reflex Free T4 2.71 0.32 - 4.0 uIU/mL [facility] Blood Venous blood specimen / Unknown 02/23/2025 10:31 AM EDT 02/23/2025 1:55 PM EDT Betsy Waldrop MD LAB BLOOD ORDERABLES Final Re sult Performing Organization Address [facility]/ZIP Co de Phone Number [facility] [address] [place] [phone] * Hepatitis C Antibody with Reflex to HCV, RNA, Quantitative, Real-Time PCR (05/26/2024 3:54 PM EST) Pathologist [facility] Hepatitis C Antibody Nonreactive Nonreactive [facility] Comment:Antibodies to HCV no t detected; does not exclude early acuteHCV infection. Blood Venous blood specimen / Unknown 05/26/2024 3:54 PM EST 05/26/2024 3:54 PM EST Betsy Waldrop MD LAB BLOOD ORDERABLES Final Re sult Performing Organization Address [facility]/ZIP Co de Phone Number [facility] [address] [place] [phone] * HIV-1/2 Antigen and Antibodies, Fourth Generation, with Reflexes (05/26/2024 3:54 PM EST) HIV AB/AG Nonreactive Nonreactive [facility] Comment:HIV-1 p24 Ag and/or HIV-1/HIV-2 Ab not detected.A test result that is nonreactive does not exclude thepossibility of exposure to or infection with HIV-1 and/orHIV-2. Nonreactive results in this assay for individualswith prior exposure to HIV-1 and/or HIV-2 may be due toantigen and antibody levels that are below the limit ofdetection of this assay.The PromonniDodonation HIV Ag/Ab Combo assay result andsupplemental assay results should be interpreted inconjunction with the patient's clinical presentation,history and other laboratory results. If the results areinconsistent with clinical evidence, additional testing issuggested to confirm the result. Blood Venous blood specimen / Unknown 05/26/2024 3:54 PM EST 05/26/2024 3:54 PM EST us Betsy Waldrop MD LAB BLOOD ORDERABLES Final Re sult [facility] [address] [place] [address] [phone] * Pap Smear (02/04/2024 12:00 AM EDT) SOURCE: SEE NOTE [facility] Comment:None given Report Status: [facility] Clinical Information: SEE NOTE [facility] Comment:None given LMP: SEE NOTE [facility] Comment:NONE GIVEN Prev. PAP: SEE NOTE [facility] Comment:NONE GIVEN Prev. BX: SEE NOTE [facility] Comment:NONE GIVEN Statement Of Adequacy: SEE NOTE [facility] Comment:Satisfactory for gavin luation.Endocervical/transformation zone componentpresent. General Categorization: [facility] Interpretation/Result: SEE NOTE [facility] Comment:Cytology Results: Ne gative for intraepitheliallesion or malignancy. Cytology Comment SEE NOTE [facility] Comment:This Pap test has be en evaluated with computerassisted technology. Cigar Machine Feeder: SEE NOTE [facility] Comment:YP, CT(ASCP)CT scree jessica location: [address] [address] Review Cigar Machine Feeder: SEE NOTE [facility] Comment:SL, CT(ASCP)CT scree jessica location: [address] [address] Pathologist [facility] PAP Infection [facility] See Note SEE NOTE [facility] Comment:EXPLANATORY NOTE:The Pap is a screening test for cervical cancer. It isnot a diagnostic test and is subject to false negativeand false positive results. It is most reliable when asatisfactory sample, regularly obtained, is submittedwith relevant clinical findings and history, and whenthe Pap result is evaluated along with historic andcurrent clinical information.THIS TEST WAS PERFORMED AT:[facility] [place] [phone] VALLE MD Pap Vial Vaginal structure / Unknown 02/04/2024 02/04/2024 Narrative [facility] - 02/07/2024 10:36 AM EDT SEE SCANNED RESULTS IN EMR us Betsy Waldrop MD LAB PATHOLOGY ORDERABLES Marizol benitez Result [facility] [address] [place] [phone] [phone] * HPV mRNA E6/E7 w/Reflex to HPV Genotypes 16, 18/45 (02/04/2024 12:00 AM EDT) HPV nRNA E6/E7 NOT DETECTED [facility] Comment:Methodology: Transcr iption-Mediated AmplificationThis assay detects E6/E7 viral messenger RNA (mRNA) from 14high-risk HPV types(16,18,31,33,35,39,45,51,52,56,58,59,66,68).Cervical sources are required for HPV testing.If a vaginal source from a patient who has had atotal hysterectomy with removal of cervix wassubmitted, please contact the testing laboratoryfor alternative testing options.For additional information, please refer tohttp://education.farmflo/faq/QDU491b5(This link if provided for information/educational purposes only.)THIS TEST PERFORMED AT:[facility] [place] [phone] DIRECTOR: PERLA VALLE MD HPV mRNA E6/E7 [facility] HPV 16 RNA TNP [facility] HPV 18/45 RNA TNP [facility] Vaginal Fluid Cervix uteri structure / Unknown 02/04/2024 02/04/2024 Narrative [facility] - 02/07/2024 10:36 AM EDT SEE SCANNED RESULTS IN EMRCollection Date: [id number] by: FIDE Carr: Cervix us Betsy Waldrop MD LAB CYTOLOGY ORDERABLES Final Result Performing Organization Address City/[facility]/ZIP Co de Phone Number [facility] [address] [place] [phone] * Lipid Panel, Standard (12/17/2023 9:14 AM EDT) Triglycerides 53 <150 mg/dL [facility] Comment:Desirable Triglyceri de: less than 150 mg/dLBorderline High Triglyceride 150-199 mg/dLHigh Triglyceride: 200-499 mg/dLVery High Triglyceride: greater than or equal to 5OO mg/dL Cholesterol 149 <200 mg/dL [facility] Comment:Desirable Cholestero l: less than 200 mg/dLBorderline High Cholesterol: 200-239 mg/dLHigh Cholesterol: greater than 239 mg/dL LDL Cholesterol Calculated 83 <100 mg/dL [facility] Comment:Desirable LDL: less than 100 mg/dLNear Optimal/Above Optimal LDL: 110- 129 mg/dLBorderline High LDL: 130-159 mg/dLHigh LDL: 160-189 mg/dLVery High LDL: greater than or equal to 190 mg/dL HDL Cholesterol 56 >40 mg/dL [facility] Comment:Desirable HDL: great er than 40 mg/dL Note: This HDL assay may give artificially low results in patients with liver disease. 12/17/2023 9:14 AM EDT 12/17/2023 9:14 AM EDT us Generic External Data Provider LAB BLOOD ORDERAB LES Final Result [id number] [phone] from Last 3 Months or Most Recently Relevant to Health Maintenance Insurance [facility] C3 Care Teams Contour Band Saw Operator Vertical Relationship Specialty Start Date End Date Betsy Waldrop MD [address] [place] [phone] PCP - General Family Medicine 08/30/22
--- OUTSIDE RECORDS SUMMARY | 2025-03-12 13:05 | XMS_ITS | Encounter Summary ---
Author Organization [employer] Address [address] [facility] [address] 7t [place] [address] Care Team Providers Care Wall Washer Name Role Phone Betsy Waldrop MD Primary Care Provider [phone] Encounter Details Date Type Department Care Team (Latest Contact Info) Description 03/09/2025 Travel Social History Tobacco Use Types Packs/Day [...] PM EST documented as of this encounter Functional Status * Over the past 2 weeks, how often have you been bothered by any of the following problems? Question Answer Date of Assessment Author Patient Health Questionnaire -2 Score 0 03/09/2025 11:01 AM Sa tri Boyd MA * Little interest or pleasure in [...] of Assessment Author 2 03/09/2025 11:01 AM Guelrine Flaherty MA * How difficult have these problems made it for you to do your work, take care of things at home, or get along with other people? Answer Date of Assessment Author Not difficult at all 03/09/2025 11:01 AM Guerline Rodriguez MA * Over the last 2 weeks, how often have you been bothered by any of the following problems? Question Answer Date of Assessment Author Feeling nervous, anxious, or on edge 2 03/09/2025 11:01 AM Sa tri Boyd MA Not being able to stop or control worrying 1 03/09/2025 11:01 AM Sa tri Boyd MA Worrying too much about different things 1 03/09/2025 11:01 AM Sa tri Boyd MA Trouble relaxing 1 03/09/2025 11:01 AM [...] WILLIAM-7 Total Score 6 03/09/2025 11:01 AM EDT Guerline Merida MA documented as of this encounter Plan of Treatment Not on file documented as of this encounter Visit Diagnoses Not on filedocumented in this encounter Additional Health Concerns Assessment Noted Time PHQ-9 Depression Total Score: 2 03/09/20 25 11:01 AM EDT documented as of this encounter Care Teams Wall Washer Relationship Specialty Start Date End Date Betsy Waldrop MD [address] [place] [address] PCP - General Family Medicine 08/30/22 documented as of this encounter
--- OUTSIDE RECORDS SUMMARY | 2025-03-12 13:05 | XMS_ITS | Encounter Summary ---
Author Organization [employer] Address [address] [facility] 7t [place] [address] Care Team Providers Care Nurse Staff Industrial Name Role Phone Betsy Waldrop MD Primary Care Provider [phone] Encounter Details Date Type Department Care Team (Late st Contact Info) Description 11/19/2024 Orders Only [facility]S [address] [place], [place] [id number] Velia Hudson MD [address] [place] [address] Anemia, unspecified type (Primary Dx) Social History [...] the past 12 months, has t he [employer], gas, oil or water company threatened to [...] Expires: 11/19/2025 documented as of this encounter Procedures Procedure Name Priority Date/Time Associated Diagnosis Comments RETICULOCYTE COUNT Routine 11/24/2024 11 :23 AM EDT Anemia, unspecified type documented in this encounter Results * (ABNORMAL) Reticulocyte Count (11/24/2024 11:23 AM EDT) Reticulocytes Absolute 0.055 0.026 - 0.095 X10*6/uL [facility] Immature Retic Fraction 19.5(H) 3.0 - 15.9 % [facility] Retic HGB Equivalent 21.1(L) 30.0 - 35.0 pg [facility] Reticulocyte Percent 1.2 0.5 - 1.8 % [facility] Blood Venous blood specimen / Unknown 11/24/2024 11:23 AM EDT 11/24/2024 2:17 PM EDT us Velia Hudson MD LAB BLOOD ORDERABLES Final Result [facility] [address] [place] [address] [phone] documented in this encounter Visit Diagnoses Diagnosis Anemia, unspecified type- Primary documented in this encounter Additional Health Concerns Assessment Noted Time PHQ-9 Depression Total Score: 13 024 8:42 AM EDT documented as of this encounter Care Teams Nurse Staff Industrial Relationship Specialty Start Date End Date Betsy Waldrop MD [address] [place] [address] PCP - General Family Medicine 08/30/22 documented as of this encounter
--- OUTSIDE RECORDS SUMMARY | 2025-03-12 13:05 | XMS_ITS | Encounter Summary ---
Author Organization [facility] Address [address] [place] [address] Care Team Providers Care Fire Equipment Inspector Name Role Phone Max Arizmendi Primary Care Provider [phone] Tammy Naylor LPCA Unavailable Anusha Molina CONCRETE FORM SETTER Unavailable [phone] Rachele Ornelas GEAR MACHINE OPERATOR Unavailable [phone] Encounter Details Date Type Department Care Team (Late st Contact Info) Description 09/29/2020 Prep for Surgery [facility] [address] [place] [address] [phone] Lori Lau MD [address] [place] [address] Diet controlled gestational diabetes mellitus (GDM) in [...] Primary documented in this encounter Care Teams Fire Equipment Inspector Relationship Specialty Start Date End Date Max Arizmendi [address] [place] [address] PCP - General 09/01/19 Tammy Naylor LPCA [address] [place] [address] Clinician Social Work 05/03/20 02/21/22 Anusha Molina APRN [address] [place] [address] Primary Attending Psychiatry, General 05/06/2002/22 Rachele Ornelas LCSW [address] [place] [address] Chip Bin Conveyor Tender Clinical Social Work 05/24/20 02/21/22 documented as of this encounter
--- OUTSIDE RECORDS SUMMARY | 2025-03-12 13:05 | XMS_ITS | Encounter Summary ---
Author Organization [facility] Address [address] [place] [address] Care Team Providers Care Power House Control Room Operator Name Role Phone UgoMax Primary Care Provider [phone] Reason for Visit * Reason Comments Medication Refill Encounter Details Date Type Department Care Team (Late st Contact Info) Description 07/19/2022 Refill [facility] [address] [facility] [address] [place] [address] Dolly Enamorado MD 85 [facility] [address] [place], [place] [id number] Primary hypothyroidism Social History Tobacco Use Types [...] hypothyroidism documented in this encounter Care Teams Power House Control Room Operator Relationship Specialty Start Date End Date Max Arizmendi [address] [place] [address] PCP - General 09/01/19 documented as of this encounter
--- OUTSIDE RECORDS SUMMARY | 2025-03-12 13:05 | XMS_ITS | Clinical Summary ---
Author Organization [facility] Address [address] [place] [address] Care Team Providers Care Science Education Professor Name Role Phone Max Arizmendi Primary Care Provider [phone] Allergies Active Allergy Reactions Criticality Noted Date [...] empty stomach. 90 tablet 1 2 Active Lxs-VmEdjb-YN-DHA (Vitafol-One) 29-1-200 MG CapIndications:Esha haas is a [...] (09/30/2020): Added automatically from request for surgery [id number] Assessment & Plan (11/03/2020 10:48 AM EDT): [...] cm today at 24w6d. GS planned with MF 09/06/20 Allergic dermatitis 07/14/2020 Overview (07/14/2020): Dermatitis likely related to new laundry detergent, new soap. Prescribed hydrocortisone ointment 07/14/20. MARGARET Panic disorder with agoraphobia 05/13/2020 Assessment & Plan (08/30/2021 4:27 PM EST): Type: chronic illness - severe exacerbation, moderate progression Status: symptomatic, aggravated by current stressor(s) Plan: Continue alprazolam 0.5 mg to TID prn anxiety/panic discontinue desipramine 25 mg nightly Assessment & Plan (05/18/2021 12:11 PM EST): Type: chronic illness - severe exacerbation, moderate progression, treatment monitoring/management Status: symptomatic, aggravated by current stressor(s) Plan: Continue alprazolam 0.5 mg to TID prn anxiety/panic Initiate desipramine 25 mg nightly Assessment & Plan (02/25/2021 6:31 PM EDT): Type: chronic illness - severe exacerbation, moderate progression, treatment monitoring/management Status: symptomatic, aggravated by current stressor(s) Plan: Continue alprazolam 0.5 mg to TID prn anxiety/panic Initiate desipramine 25 mg nightly Assessment & Plan (01/03/2021 7:51 PM EDT): Type: chronic illness - severe exacerbation, moderate progression, treatment monitoring/management Status: symptomatic, aggravated by current stressor(s) Plan: Adjust alprazolam 0.5 mg to TID prn anxiety/panic Discontinue gabapentin 300 mg 3 times daily for anxiety, racing thoughts and sleep disruptions - patient endorses caused her to feel groggy, disconnected Assessment & Plan (12/09/2020 5:43 PM EDT): Type: chronic illness - severe exacerbation, moderate progression, treatment monitoring/management Status: symptomatic, aggravated by current stressor(s) Plan: Continue alprazolam 0.5 mg bid prn anxiety/panic Recommend use of gabapentin 300 mg 3 times daily for anxiety, racing thoughts and sleep disruptions Assessment & Plan (10/17/2020 12:00 PM EDT): Type: chronic illness - severe exacerbation, severe progression Status: symptomatic, aggravated by current stressor(s) Plan: Continue Alprazolam 0.5 mg bid Assessment & [...] was recommended to per her provider at [facility] Assessment & Plan (08/30/2021 4:27 PM EST): Type: chronic illness - severe exacerbation, moderate progression Status: symptomatic, aggravated by current stressor(s) Plan: discontinue Abilify 7.5 mg daily Assessment & Plan (05/18/2021 12:11 PM EST): Type: chronic illness - severe exacerbation, moderate progression, treatment monitoring/management Status: symptomatic, aggravated by current stressor(s) Plan: Continue Abilify 7.5 mg daily Assessment & Plan (02/25/2021 6:32 PM EDT): Type: chronic illness - severe exacerbation, moderate progression, treatment monitoring/management Status: symptomatic, aggravated by current stressor(s) Plan: Continue Abilify to 7.5 mg daily Assessment & Plan (01/03/2021 7:52 PM EDT): Type: chronic illness - severe exacerbation, moderate progression, treatment monitoring/management Status: symptomatic, aggravated by current stressor(s) Plan: Increase Abilify to 7.5 mg daily Assessment & Plan (12/09/2020 5:42 PM EDT): Type: chronic illness - severe exacerbation, moderate progression, treatment monitoring/management Status: symptomatic, aggravated by current stressor(s) Plan: Continue Abilify 5 mg daily Assessment & Plan (11/03/2020 10:43 AM EDT): Not taking any medications, mood stable today, has a therapist Assessment & Plan (10/27/2020 11:57 AM EDT): Not taking any medications, mood stable today, has a therapist Assessment & Plan (10/17/2020 12:01 PM EDT): Type: chronic illness - moderate exacerbation, moderate progression Status: symptomatic, unchanged Plan: Patient has been rx'd abilify. Attempted to start but had negative secondary effects and discontinued (nausea and vomiting0 Reports post delivery wants to attempt the [...] 04/11/2020 Overview (04/11/2020): 04/11/2020: Offer vaccine PP. JHM Assessment & Plan (11/03/2020 10:47 AM EDT): [...] 39.42 04/27/20: Need early GTT next visit. MFM referral sent. Assessment & Plan (07/14/2020 4:13 [...] past but not on meds since 2018. library services coordinator referral placed. DF Assessment & [...] of second hand smoke during and to . Patient states she will continue to encourage [...] (03/22/2018): Added automatically from request for surgery [id number] Assessment & Plan (04/27/2020 4:24 PM EDT): Patient reports history of herniated disk and sciatica. Will have anesthesia consult later in . Lumbar radiculopathy 03/19/2018 020 Overview (03/22/2018): Added automatically from request for surgery [id number] Immunizations Immunization Administration Dates Next Due Influenza [...] 108 12/09/2020 3:00 PM EDT Temperature 35.9 C (96.7 F) 12/09/2020 3:00 PM EDT Respiratory Rate 18 11/07/2020 12:00 PM EDT [...] (Ages 21-65) 1999 Mammogram 2018 Colonoscopy 2023 Influenza Vaccine 2025 05/25/2020, 07/14/2019 COVID-19 Vaccine ( - 2023-2 5 season) 2025 DTaP/Tdap/Td Vaccines (2 - T d or [...] to Confirmation (09/29/2020 3:36 PM EDT) Pathologist [facility] HIV 1/2 Ag/Ab CMIA Nonreactive Nonreactive [facility]PITAL [facility] Comment: Results show no evidence of infection by HIV 1/2. If clinically indicated, repeat CMIA or test by nucleic acid amplification. Performed at [facility], [place], [place] License 0385 CLIA [id number] Blood specimen (specimen) Blood specimen / Unknown 09/29/2020 3:36 PM EDT 09/29/2020 6:22 PM EDT us Audrey Luevano MD LAB BLOOD ORDERABLES Marizol l Result [facility]OS[facility]ITAL [facility] * Hepatitis C Virus (HCV) Antibody (04/08/2020 11:00 AM EDT) Pathologist [facility] Hepatitis C Antibody 0.15 0.00 - 0.79 S/CO ratio [facility]OS[facility]ITAL [facility] Hepatitis C Antibody Interpretation Nonreactive Nonreactive [facility] Comment:Performed at [facility], [place], [place] License 0385 CLIA [id number] Blood specimen (specimen) Heel structure / Unknown 04/08/2020 11:00 AM EDT 04/08/2020 12:32 PM EDT us Rachele Cheung MD LAB BLOOD ORDERABLES Final Result [facility]OSPITAL LAB from Last 3 Months or Most Recently Relevant to Health Maintenance Insurance [facility] Advance Directives * Full Code (Latest Code Status on File) Date Activated Date Inactivated Comments 11/04/2020 6:06 PM * Full Code Date Activated Date Inactivated Comments 11/03/2020 11:19 AM 11/04/2020 9:26 AM * Full Code Date Activated Date Inactivated Comments 09/01/2020 7:27 PM 11/03/2020 11:15 AM * Full Code Date Activated Date Inactivated Comments 03/19/2018 6:42 PM 06/28/2019 5:12 PM Care Teams Science Education Professor Relationship Specialty Start Date End Date Max Arizmendi [address] [place] [address] PCP - General 09/01/19
--- OUTSIDE RECORDS SUMMARY | 2025-03-12 13:05 | XMS_ITS | Encounter Summary ---
Author Organization [facility] Address [address] [place] [address] Care Team Providers Care Helpdesk Technician Name Role Phone Max Arizmendi Primary Care Provider Tammy Naylor LPCA Unavailable Anusha Molina SWEEPER DRIVER Unavailable [phone] Rachele Ornelas DEPUTY HEAD Unavailable Reason for Visit * Reason Comments Medication Refill Encounter Details Date Type Department Care Team (Late st Contact Info) Description 12/07/2020 Refill Day [facility] [address] [place] [phone] Josie Bingham MD [address] [place], [place] [id number] History of 2 sections Social History Tobacco [...] sections documented in this encounter Care Teams Helpdesk Technician Relationship Specialty Start Date End Date Max Arizmendi [address] [place] [address] PCP - General 09/01/19 Tammy Naylor LPCA [address] [place] [address] Clinician Social Work 05/03/20 02/21/22 Anusha Molina APRN [address] [place] [address] Primary BH Attending Psychiatry, General 05/06/2002/22 BackRachele Coley LCSW [address] [place] [address] Client Support Coordinator Clinical Social Work 05/24/20 02/21/22 documented as of this encounter
--- OUTSIDE RECORDS SUMMARY | 2025-03-12 13:05 | XMS_ITS | Encounter Summary ---
Author Organization [facility] Address [address] [place] [address] Care Team Providers Care Cooker Cleaner Name Role Phone Max Arizmendi Primary Care Provider [phone] Tammy Naylor LPCA Unavailable Anusha Molina BARBACK Unavailable Rachele Ornelas CERTIFIED DIALYSIS TECHNICIAN Unavailable Encounter Details Date Type Department Care Team (Late st Contact Info) Description 09/07/2020 Lab Requisition [place] [facility] [address] [place] [address] Dar Robison MD [address] [place], [place] [phone] Encounter for laboratory testing for COVID-19 virus [...] Date/Time Associated Diagnosis Comments COVID-19 (SARS-COV-2) - [facility] Routine 09/07/2020 11:45 AM EST Encounter for laboratory testing for COVID-19 virus [ICD-10-CM] documented in this encounter Results * COVID-19 (SARS-COV-2) ([facility]) (09/07/2020 11:45 AM EST) COVID-19 RT-PCR NOT-DETEC LEONARDO Not-Detec leonardo 09/08/2020 3:10 PM EST [facility] Comment:Interpretation: The viral RNA was not detected, making the COVID-19 diagnosis less likely. Clinical correlation is highly recommended.Final report signed by Leslie Carlson, Ph.D., Laboratory DirectorTests performed at [email or web address] Microbiology Nasopharyngeal swab / Unknown 09/07/2020 11:45 AM EST 09/07/2020 11:45 AM EST Narrative [facility] - 09/08/2020 3:10 PM EST Performed by [email or web address] [address] [place] [id number], CLIA# [id number] and [place] License# [id number] us Dar Robison MD MICROBIOLOGY - GENERAL ORDER JIMMIE Final Result [facility] documented in this encounter Visit Diagnoses Diagnosis Encounter for laboratory testing for COVID-19 virus documented in this encounter Care Teams Cooker Cleaner Relationship Specialty Start Date End Date Max Arimzendi [address] [place] [address] PCP - General 09/01/19 Tammy Naylor LPCA [address] [place] [address] Clinician Social Work 05/03/20 02/21/22 Anusha Molina APRN [address] [place] [address] Primary BH Attending Psychiatry, General 05/06/2002/22 Rachele Ornelas LCSW [address] [place] [address] Home And School Visitor Clinical Social Work 05/24/20 02/21/22 documented as of this encounter
--- OUTSIDE RECORDS SUMMARY | 2025-03-12 13:06 | XMS_ITS | Encounter Summary ---
Author Organization [employer] Address [address] [facility] 7t [place] [address] Care Team Providers Care Research Manufacturing Operator Name Role Phone Betsy Waldrop MD Primary Care Provider [phone] Encounter Details Date Type Department Care Team (Late st Contact Info) Description 12/04/2022 [facility] [address] [place] [address] Betsy Waldrop MD [address] [place] [address] Social History Tobacco Use Types Packs/Day Years [...] documented as of this encounter Care Teams Research Manufacturing Operator Relationship Specialty Start Date End Date Betsy Waldrop MD [address] [place] [address] PCP - General Family Medicine 08/30/22 documented as of this encounter
--- OUTSIDE RECORDS SUMMARY | 2025-03-12 13:06 | XMS_ITS | Encounter Summary ---
Author Organization [employer] Address [address] [facility] [address] 7t [place] [address] Care Team Providers Care Orthopaedic Surgeon Name Role Phone Betsy Waldrop MD Primary Care Provider [phone] Reason for Visit * Reason Onset Date Comments Nurse Triage 04/23/2024 Encounter Details Date Type Department Care Team (Late st Contact Info) Description 04/23/2024 Telephone [facility] [address] [place], [place] [phone] Besty Waldrop MD [address] [place] [address] Nurse Triage Social History Tobacco Use Types [...] the past 12 months, has t he [employer], gas, oil or water company threatened to [...] documented as of this encounter Care Teams Orthopaedic Surgeon Relationship Specialty Start Date End Date Betsy Waldrop MD [address] [place] [address] PCP - General Family Medicine 08/30/22 documented as of this encounter
--- OUTSIDE RECORDS SUMMARY | 2025-03-12 13:06 | XMS_ITS | Encounter Summary ---
Author Organization [employer] Address [address] [facility] [address] 7t [place] [address] Care Team Providers Care Radio Mechanic Helper Name Role Phone Betsy Waldrop MD Primary Care Provider [phone] Encounter Details Date Type Department Care Team (Late st Contact Info) Description 09/26/2023 Telephone [facility] MEDICINE [address] [place] [address] Betsy Waldrop MD [address] [place] [address] Social History Tobacco Use Types Packs/Day Years Used Date Smoking Tobacco: Every Day Cigarettes Passive Smoke Exposure: Current Smokeless Tobacco: Never Alcohol Use Standard Drinks/Week Comments Never 0 (1 standard drink = 0.6 oz pur e alcohol) Depression Answer Date Recorded Patient Health Questionnaire-9 Score 12 10/04/2022 Housing Stability Answer Date Recorded What is your housing situation today? I have alyssamarbella haas 04/22/[address] you [...] one being [facility] * Telephone Encounter - Lorena Katz - [...] documented as of this encounter Care Teams Radio Mechanic Helper Relationship Specialty Start Date End Date Betsy Waldrop MD [address] [place] [address] PCP - General Family Medicine 08/30/22 documented as of this encounter
--- OUTSIDE RECORDS SUMMARY | 2025-03-12 13:06 | XMS_ITS | Clinical Summary ---
Author Organization [facility] Address [address] [place] [address] Care Team Providers Care Guitar Maker Name Role Phone Unavailable Primary Care Provider [...] Cervical Cancer Screening: P ap Smear 1999 Depression Screening 07/08/2024 COVID-19 Vaccine ( - 2023-2 5 season) 2025 Influenza Vaccine (#1) 2025 HIB Vaccines Aged [...]
--- OUTSIDE RECORDS SUMMARY | 2025-03-12 13:06 | XMS_ITS | Encounter Summary ---
Author Organization [employer] Address [address] [facility] 7t [place] [address] Care Team Providers Care Infusion Rn Name Role Phone Betsy Waldrop MD Primary Care Provider [phone] Reason for Visit * Reason Onset Date Comments Reschedule 12/17/2023 chart prep 12/17/2023 Encounter Details Date Type Department Care Team ([facility] st Contact Info) Description 12/17/2023 Telephone [facility] [address] [place] [address] Betsy Waldrop MD [address] [place] [address] Reschedule; chart prep Social History Tobacco Use [...] 12/16 PAP appointment. Please contact pt at [phone] documented in this encounter Plan of Treatment Not on file documented as of this encounter Visit Diagnoses Not on filedocumented in this encounter Additional Health Concerns Assessment Noted Time PHQ-9 Depression Total Score: 13 024 8:42 AM EDT documented as of this encounter Care Teams Infusion Rn Relationship Specialty Start Date End Date Betsy Waldrop MD [address] [place] [address] PCP - General Family Medicine 08/30/22 documented as of this encounter
--- OUTSIDE RECORDS SUMMARY | 2025-03-12 13:06 | XMS_ITS | Clinical Summary ---
Author Organization [facility] Address [address] [place] [address] Care Team Providers Care Alto Singer Name Role Phone Unavailable Primary Care Provider [...] with Friends and Family Never 09/10/2019 Attends Christian Services Never 09/09 Active Member of Clubs [...] this topic ObrienVeroniqueYani Personal/Family Self [address] [address] Obrien,Yani [facility] Self 1980 [address] [address]
--- OUTSIDE RECORDS SUMMARY | 2025-03-12 13:06 | XMS_ITS | Encounter Summary ---
Author Organization [facility] Address [address] [place] [address] Care Team Providers Care Cooler Deliverer Name Role Phone Max Arizmendi Primary Care Provider [phone] Tammy Naylor LPCA Unavailable [phone] Anusha Molina LABOR EXPEDITER Unavailable Rachele Ornelas DATA ENTRY MANAGER Unavailable [phone] Encounter Details Date Type Department Care Team (Late st Contact Info) Description 09/05/2020 Telephone [facility] Maternal Medicine [address] [address] Phoenix Gallardo MD [address] [place] [address] Social History Tobacco Use Types Packs/Day Years [...] on filedocumented in this encounter Care Teams Cooler Deliverer Relationship Specialty Start Date End Date Ugo Max [address] [place] [address] PCP - General 09/01/19 Tammy Naylor LPCA [address] [place] [address] Clinician Social Work 05/03/20 02/21/22 Anusha Molina APRN [address] [place] [address] Primary BH Attending Psychiatry, General 05/06/2002/22 Backer Rachele Lawrence LCSW [address] [place] [address] Machine Chocolate Molder Clinical Social Work 05/24/20 02/21/22 documented as of this encounter
[2025-03-12 14:24] LABS: MANUAL DIFF FLAG NO
[2025-03-12 14:30] LABS: Hematocrit 32.7 % (37.0-47.0); Hemoglobin 9.7 g/dl (12.0-16.0); Imm Gran Abs Auto 0.01 X10*3/uL (0.00-0.03); Imm Gran Pct Auto 0.2 % (0.0-0.4); Lymphocytes Absolute Auto 1.8 X10*3/uL (1.2-4.9); Mean Corpuscular HGB Conc 29.7 g/dl (31.0-35.0); Mean Corpuscular Hemoglobin 21.7 pg (27.0-33.0); Mean Corpuscular Volume 73.2 fL (80.0-98.0); NRBC Abs Auto 0.000 X10*3/uL (0.0-0.012); NRBC Pct Auto 0.0 /100WBC (0.0-0.2); Platelet Count 176 X10*3/uL (160-400); Red Blood Count 4.47 X10*6/uL (4.20-5.50); White Blood Count 4.9 X10*3/uL (4.8-10.8)
[2025-03-12 14:51] LABS: Alanine Aminotransferase 16 U/L (0-31); Albumin Level 4.2 g/dL (3.5-5.0); Alkaline Phosphatase 43 U/L (39-117); Anion Gap 11 (12-20); Aspartate Amino Transferase 25 U/L (5-31); Blood Urea Nitrogen 11 mg/dL (9-16); Calcium 8.8 mg/dL (8.4-10.2); Carbon Dioxide 25 mmol/L (22-29); Chloride 107 mmol/L (96-108); Cholesterol 156 mg/dL (<200); Estimated Glomerular Filt Rate > 60; HDL Cholesterol 63 mg/dL (>40); Potassium 3.7 mmol/L (3.3-5.1); Sodium 139 mmol/L (135-145); Total Protein 6.8 g/dL (6.5-8.0); Triglycerides 32 mg/dL (<150)
[2025-03-15 04:00] LABS: HBS Num1 126.99 mIU/mL (0-7.99); HBc Num1 0.06 S/CO (0.00-0.79); HBsAGNum1 0.47 S/CO (0.00-0.99); Hepatitis B Surface Antigen Negative (Negative); ~Hepatitis B Surface Antibody REACTIVE (Nonreactive)
== END 2025-03-12 12:52 | disposition home or self-care (01) ==
LOC: HO.CHCLDS 12:51
DX: Z00.00 Encounter for general adult medical examination without abnormal findings (principal); Z11.59 Encounter for screening for other viral diseases; E61.1 Iron deficiency; D64.9 Anemia, unspecified; E55.9 Vitamin D deficiency, unspecified; E78.5 Hyperlipidemia, unspecified; E03.9 Hypothyroidism, unspecified; Z98.84 Bariatric surgery status
CPT/HCPCS: 36415; 80053; 80061; 85025; 86704; 86706; 87340

== ENCOUNTER 2025-04-23 09:31 | Outpatient (AMB) | payer MEDICAID, SELFPAY ==
--- OUTSIDE RECORDS SUMMARY | 2025-04-23 10:43 | XMS_ITS | Encounter Summary ---
Author Organization [facility] Address [address] [place] [address] Care Team Providers Care Mortgage Loan Specialist Name Role Phone Max Arizmendi Primary Care Provider Tammy Naylor LPCA Unavailable Anusha Molina PRODUCTION CONTROL PLANNER Unavailable [phone] Rachele Ornelas POWER PRESS TENDER Unavailable Reason for Visit * Reason Comments Medication Refill Encounter Details Date Type Department Care Team (Late st Contact Info) Description 02/21/2021 Refill [facility] [address] [facility] [address] [place] [phone] Dolly Enamorado MD [address] [facility] [address] [place], [place] [phone] Diet controlled gestational diabetes mellitus (GDM) in [...] trimester documented in this encounter Care Teams Mortgage Loan Specialist Relationship Specialty Start Date End Date Max Arizmendi [address] [place] [phone] PCP - General 09/01/19 Tammy Naylor LPCA [address] [place] [address] Clinician Social Work 05/03/20 02/21/22 Anusha Molina APRN [address] [place] [address] Primary BH Attending Psychiatry, General 05/06/2002/22 Backer Rachele Lawrence LCSW [address] [place] [address] Manager Occupational Clinical Social Work 05/24/20 02/21/22 documented as of this encounter
--- OUTSIDE RECORDS SUMMARY | 2025-04-23 10:43 | XMS_ITS | Encounter Summary ---
Author Organization [facility] Address [address] [place] [address] Care Team Providers Care Battery Service Technician Name Role Phone Max Arizmendi Primary Care Provider [phone] Tammy Naylor LPCA Unavailable Anusha Molina AIR CONDITIONING SPECIALIST Unavailable [phone] Rachele Ornelas CUSTOMER SERVICER Unavailable [phone] Encounter Details Date Type Department Care Team (Late st Contact Info) Description 11/21/2020 Scanned Document [facility] [address] [place] [phone] Rachele Cheung MD [address] [place] [address] Social History Tobacco Use Types Packs/Day Years [...] on filedocumented in this encounter Care Teams Battery Service Technician Relationship Specialty Start Date End Date Ugo Destinycheng [address] [place] [address] PCP - General 09/01/19 Tammy Naylor LPCA [address] [place] [address] Clinician Social Work 05/03/20 02/21/22 Anusha Molina APRN [address] [place] [address] Primary BH Attending Psychiatry, General 05/06/2002/22 Rachele Ornelas LCSW [address] [place] [address] Airline Pilot Clinical Social Work 05/24/20 02/21/22 documented as of this encounter
--- OUTSIDE RECORDS SUMMARY | 2025-04-23 10:43 | XMS_ITS | Encounter Summary ---
Author Organization [facility] Address [address] [place] [address] Care Team Providers Care Assembly Line Robot Operator Name Role Phone Max Arizmendi Primary Care Provider Tammy Naylor LPCA Unavailable [phone] Anusha Molina MACHINE ZIPPER TRIMMER Unavailable Rachele Ornelas ENTRY LEVEL ADMINISTRATIVE ASSISTANT Unavailable Reason for Visit * Reason Comments Medication Refill Encounter Details Date Type Department Care Team (Late st Contact Info) Description 12/07/2020 Refill [facility] [address] [place] [phone] Josie Bingham MD [address] [place], [place] [id number] History of 2 sections Social History Tobacco [...] sections documented in this encounter Care Teams Assembly Line Robot Operator Relationship Specialty Start Date End Date Max Arizmendi [address] [place] [address] PCP - General 09/01/19 Tammy Naylor LPCA [address] [place] [address] Clinician Social Work 05/03/20 02/21/22 Anusha Molina APRN [address] [place] [address] Primary BH Attending Psychiatry, General 05/06/2002/22 BackRachele Coley LCSW [address] [place] [address] Solar Designer/Installer Clinical Social Work 05/24/20 02/21/22 documented as of this encounter
--- OUTSIDE RECORDS SUMMARY | 2025-04-23 10:43 | XMS_ITS | Encounter Summary ---
Author Organization [facility] Address [address] [place] [address] Care Team Providers Care Wood Lather Name Role Phone Max Arizmendi Primary Care Provider Tammy Naylor LPCA Unavailable [phone] Anusha Molina SMALL ANIMAL VETERINARIAN Unavailable Rachele Ornelas HYDRODYNAMICIST Unavailable Encounter Details Date Type Department Care Team (Late st Contact Info) Description 11/25/2020 Scanned Document [facility] [address] [place] [phone] Josie Bingham MD [address] [place] [address] Social History Tobacco Use Types Packs/Day Years [...] on filedocumented in this encounter Care Teams Wood Lather Relationship Specialty Start Date End Date Ugo Destinycheng [address] [place] [address] PCP - General 09/01/19 Tammy Naylor LPCA [address] [place] [address] Clinician Social Work 05/03/20 02/21/22 Anusha Molina APRN [address] [place] [address] Primary BH Attending Psychiatry, General 05/06/2002/22 Rachele Ornelas LCSW [address] [place] [address] Deckhand Oyster Dredge Clinical Social Work 05/24/20 02/21/22 documented as of this encounter
--- OUTSIDE RECORDS SUMMARY | 2025-04-23 10:43 | XMS_ITS | Encounter Summary ---
Author Organization [facility] Address [address] [place] [address] Care Team Providers Care Gas Pumper Name Role Phone Max Arizmendi Primary Care Provider Tammy Naylor LPCA Unavailable Anusha Molina FORMULA CLERK Unavailable [phone] Rachele Ornelas FIELD SPECIALIST Unavailable [phone] Encounter Details Date Type Department Care Team (Late st Contact Info) Description 03/24/2020 [facility] [address] [facility] [address] [place] [phone] Dolly Enamorado MD [address] [facility] [address] [place] [address] Hypothyroidism (acquired) (Primary Dx) Social History Tobacco [...] Performing Organization Information: Site ID: [id number] Name: [facility] Address: [address] [place] [address], [place] [address] Director: Deanne Mcdonough MD us Dolly Enamorado MD LAB BLOOD ORDERABLES Final R esult [facility] [address] [place] [address], [place] [address] * T4, Free (04/15/2020 2:52 PM EDT) T4, Free 1.3 0.8 - 1.8 ng/dL [facility] Blood specimen (specimen) Heel structure / Unknown 04/15/2020 2:52 PM EDT 04/15/2020 2:52 PM EDT Narrative [facility] - 04/16/2020 3:40 AM EDT FASTING:NO FASTING: NO Resulting Agency Comment Performing Organization Information: Site ID: [id number] Name: [facility] Address: [address] [place] [address], [facility] [place] [address] Director: Deanne Mcdonough MD Dolly Enamorado MD LAB BLOOD ORDERABLES Final R esult [facility] [address], [place] [address] documented in this encounter Visit Diagnoses Diagnosis Hypothyroidism (acquired)- Primary Unspecified hypothyroidism documented in this encounter Care Teams Gas Pumper Relationship Specialty Start Date End Date Max Arizmendi [address] [place] [address] PCP - General 09/01/19 Tammy Naylor LPCA [address] [place] [address] Clinician Social Work 05/03/20 02/21/22 Anusha Molina APRN [address] [place] [address] Primary BH Attending Psychiatry, General 05/06/2002/22 Backer Rachele Lawrence LCSW [address] [place] [address] Glass Robot Operator Clinical Social Work 05/24/20 02/21/22 documented as of this encounter
--- OUTSIDE RECORDS SUMMARY | 2025-04-23 10:44 | XMS_ITS | Encounter Summary ---
Author Organization [employer] Address [address] [facility] [address] [place] [address] Care Team Providers Care Import Coordinator Name Role Phone Betsy Waldrop MD Primary Care Provider [phone] Encounter Details Date Type Department Care Team (Late st Contact Info) Description 12/04/2022 Abstract [facility] Information Management [address] [place] [address] Betsy Waldrop MD [address] [place] [address] Social History Tobacco Use Types Packs/Day Years [...] documented as of this encounter Care Teams Import Coordinator Relationship Specialty Start Date End Date Betsy Waldrop MD [address] [place] [address] PCP - General Family Medicine 08/30/22 documented as of this encounter
--- OUTSIDE RECORDS SUMMARY | 2025-04-23 10:44 | XMS_ITS | Encounter Summary ---
Author Organization [employer] Address [address] [facility] [address] [facility] [address] [place] [address] Care Team Providers Care Nascar Pit Crew Person Name Role Phone Betsy Waldrop MD Primary Care Provider [phone] Encounter Details Date Type Department Care Team (Late st Contact Info) Description 09/26/2023 Telephone [facility] [address] [place] [address] Betsy Waldrop MD [address] [place] [address] Social History Tobacco Use Types Packs/Day Years [...] one being able to take her to [facility]. * Telephone Encounter - Lorena [...] documented as of this encounter Care Teams Nascar Pit Crew Person Relationship Specialty Start Date End Date Betsy Waldrop MD [address] [place] [address] PCP - General Family Medicine 08/30/22 documented as of this encounter
--- OUTSIDE RECORDS SUMMARY | 2025-04-23 10:44 | XMS_ITS | Clinical Summary ---
Author Organization [employer] Address [address] [place] [address] Care Team Providers Care Machine Ii Coremaker Name Role Phone Betsy Waldrop MD Primary Care Provider [phone] Allergies Active Allergy Reactions Criticality Noted Date Comments Diphenhydramine Itching Low 05/13/2020 Medications * This document contains information received from the source organization and may not represent a complete record from that organization. Multiple Vitamin (MULTIVITAMIN ADULT PO) Daily, 0 Refills, Maintenance, 09/26/22 14:40:00 EDT, Partial fill upon patient request if the prescription is for a schedule II opioid drug. 09/27/19 23 Active acetaminophen (Tylenol Extra Strength) 500 MG tablet Take 2 tablets (1,000 mg) by mouth every 8 (eight) hours if needed for mild pain or moderate pain. 90 tablet 10/10/19 24 Active naproxen (Naprosyn) 500 MG tablet TAKE 1 TABLET(500 MG) BY MOUTH IN THE MORNING AND AT BEDTIME NEEDED FOR MODERATE PAIN 60 tablet 11/15/19 24 Active levothyroxine (Synthroid, Levoxyl) 100 MCG tabletIndications: Acquired hypothyroidism TAKE 1 TABLET BY MOUTH EVERY MORNING ON AN EMPTY STOMACH 90 tablet 1 10/21/19 25 Active ferrous gluconate (Fergon) 324 (38 Fe) MG tablet Take 1 tablet (324 mg) by mouth every other day. 90 tablet 1 12/19/19 25 Active ibuprofen 600 MG tablet 02/17/20 25 Active fluticasone (Flonase) 50 MCG/ACT nasal sprayIndications:S inus congestion Administer 2 sprays into each nostril Once per day. Shake gently. Before first use, prime pump. After use, clean tip and replace cap. 16 g 2 03/09/20 25 026 Active albuterol 108 (90 Base) MCG/ACT inhalerIndications :Wheezing Inhale 2 puffs every 4 (four) hours if needed for wheezing. 18 g 03/09/20 25 026 Active Active Problems Problem Noted Date Diagnosed [...] send to pain management Bipolar II disorder (CMS/HCC) 05/13/2020 Overview (12/09/2023): ID: Yani is a [...] intervention , Patient to reach out to [facility] team as needed, Patient to engage in [...] Center 10/10/2023 3:15 PM Betsy Waldrop MD [facility] Insomnia due to other mental disorder [...] Severe anxiety 09/10/2019 Smoker 09/10/2019 Morbid obesity (CMS/HCC) 09/10/2019 Assessment & Plan (10/04/2022 5:01 PM EDT): Discussed calorie deficit, recommended reduction of 20-30% of maintenance calories; burrer hand referral offered. Recommended to decrease soda and [...] (08/30/2022): Added automatically from request for surgery [id number] Last Assessment & Plan: Continue diet control. Patient did not bring meter or log today. Seen by nutrition Gestational thrombocytopenia 09/01/2020 10/04/2022 Overview (10/03/2022): Plts 144 on 09/01/20 Needs repeat CBC next visit (10/06/20) Last Assessment & Plan: Plt 158 at last visit 10/27/20 Encounters Date Type Department Care Team Description 03/09/2025 10:45 AM EDT Office Visit [facility] [address] [place] [address] India Parsons CNP Encounter for screening for malignant neoplasm of colon (Primary Dx); Encounter for physical examination; Acquired hypothyroidism; Iron deficiency anemia due to chronic blood loss; Polyarthralgia; Sinus congestion; Positive NORRIS (antinuclear antibody); Menorrhagia with regular cycle; Wheezing 03/09/2025 Travel 03/08/2025 Travel 03/05/2025 Telephone [facility] [address] [place] [address] Betsy Waldrop MD chart prep 03/01/2025 Patient Outreach [facility] [address] [place] [address] Betsy Waldrop MD Pre-visit Planning (SDOH negative, Tobacco screening positive. ) 02/18/2025 Telephone [facility] [address] [place], [place] [phone] Betsy Waldrop MD Lab Orders 02/16/2025 Telephone [facility] [address] [place] [address] Betsy Waldrop MD Appointment Request from Last 3 Months Immunizations Immunization Administration [...] Mammogram 2018 COVID-19 Vaccine ( season) 2025 Alcohol/Substance Use Screening 04/27/2025 04/27/2024 Disability Screening 10/28/2025 10/28/2024 Influenza Vaccine (#1) 2026 , 05/25/2020, 07/14/2019, Additional history exists Postponed from 03/08/2025 (Supply/Drug Shortage) SDOH Screening 03/01/2026 03/01/2025 Depression Screening 03/09/2026 03/09/2025, 03/09/20 Family Planning (PISQ) 03/09/2026 03/09/2025 Tobacco Screening 03/09/2026 03/09/2025 Zoster Vaccines (1 of 2) 02/06/2028 Cervical Cancer Screening 02/03/2029 HPV/Cotest 02/03/2029 02/04/2024 Pap Smear 02/03/2029 02/04/2024 Lipid Panel 03/12/2030 03/12/2025, 06/1 07/2023, 11/08/2022, Additional history exists DTaP/Tdap/Td Vaccines (3 [...] EDT Routine general medical examination at a [facility] care facility TSH W/REFLEX TO FT4 Routine [...] Blood Count 4.9 4.8 - 10.8 X10*3/uL [facility] Red Blood Count 4.47 4.20 - 5.50 X10*6/uL [facility] Hemoglobin 9.7(L) 12.0 - 16.0 g/dl [facility] Hematocrit 32.7(L) 37.0 - 47.0 % [facility] Mean Corpuscular Volume 73.2(L) 80.0 - 98.0 fL [facility] Mean Corpuscular Hemoglobin 21.7(L) 27.0 - 33.0 pg [facility] Mean Corpuscular HGB Conc 29.7(L) 31.0 - 35.0 g/dl [facility] Red Cell Distribution Width 18.0(H) 11.0 - 16.0 % [facility] Platelet Count 176 160 - 400 X10*3/uL [facility] Mean Platelet Volume 10.3 9.4 - 12.3 fL [facility] Neutrophils Percent Auto 53.3 45 - 73 % [facility] Imm Gran Pct Auto 0.2 0.0 - 0.4 % [facility] Lymphocytes Percent Auto 36.3 20 - 40 % [facility] Monocytes Percent Auto 7.4 2 - 11 % [facility] Eosinophils Percent Auto 1.6 0 - 4 % [facility] Basophils Percent Auto 1.2 0 - 2 % [facility] NRBC Pct Auto 0.0 0.0 - 0.2 /100WBC [facility] Neutrophils Absolute Auto 2.6 2.0 - 8.3 x10*3/uL [facility] Imm Gran Abs Auto 0.01 0.00 - 0.03 X10*3/uL [facility] Lymphocytes Absolute Auto 1.8 1.2 - 4.9 X10*3/uL [facility] Monocytes Absolute Auto 0.4 0.1 - 1.2 X10*3/uL [facility] Eosinophils Absolute Auto 0.1 0.0 - 0.4 X10*3/uL [facility] Basophils Absolute Auto 0.1 0.0 - 0.2 X10*3/uL [facility] NRBC Abs Auto 0.000 0.0 - 0.012 X10*3/uL [facility] Blood Venous blood specimen / Unknown 03/12/2025 12:56 PM EDT 03/12/2025 2:21 PM EDT [facility] LAB BLOOD ORDERABLES Marizol l Result Performing Organization Address City/[facility]/ZIP Co de Phone Number [facility] [address] [place] [phone] * Hepatitis B surface antigen, EIA (03/12/2025 12:56 PM EDT) Pathologist [facility] Hepatitis B Surface Ag Negative Negative [facility] Blood Venous blood specimen / Unknown 03/12/2025 12:56 PM EDT 03/12/2025 2:21 PM EDT [facility] LAB BLOOD ORDERABLES Marizol l Result Performing Organization Address City/[facility]/ZIP Co de Phone Number [facility] [address] [place] [phone] * Hepatitis B Core Antibody, Total (03/12/2025 12:56 PM EDT) Pathologist [facility] Hepatitis B Core Antibody Nonreactive Nonreactive [facility] Blood Venous blood specimen / Unknown 03/12/2025 12:56 PM EDT 03/12/2025 2:21 PM EDT [facility] LAB BLOOD ORDERABLES Marizol l Result Performing Organization Address City/[facility]/ZIP Co de Phone Number [facility] [address] [place] [address] [phone] * Hepatitis B Surface Antibody, Qualitative (03/12/2025 12:56 PM EDT) Pathologist [facility] ~Hepatitis B Surface Antibody REACTIVE Nonreactive [facility] Comment:REACTIVE: > 11.99 mI U/mL Blood Venous blood specimen / Unknown 03/12/2025 12:56 PM EDT 03/12/2025 2:21 PM EDT [facility] LAB BLOOD ORDERABLES Marizol l Result Performing Organization Address [facility] Co de Phone Number [facility] [address] [place] [address] [phone] * Lipid Panel, Standard (03/12/2025 12:56 PM EDT) Pathologist [facility] Triglycerides 32 <150 mg/dL [facility] Comment:Desirable Triglyceri de: less than 150 mg/dLBorderline High Triglyceride 150-199 mg/dLHigh Triglyceride: 200-499 mg/dLVery High Triglyceride: greater than or equal to 5OO mg/dL Cholesterol 156 <200 mg/dL [facility] Comment:Desirable Cholestero l: less than 200 mg/dLBorderline High Cholesterol: 200-239 mg/dLHigh Cholesterol: greater than 239 mg/dL LDL Cholesterol Calculated 87 <100 mg/dL [facility] Comment:Desirable LDL: less than 100 mg/dLNear Optimal/Above Optimal LDL: 110- 129 mg/dLBorderline High LDL: 130-159 mg/dLHigh LDL: 160-189 mg/dLVery High LDL: greater than or equal to 190 mg/dL HDL Cholesterol 63 >40 mg/dL [facility] Comment:Desirable HDL: great er than 40 mg/dL Note: This HDL assay may give artificially low results in patients with liver disease. Blood Venous blood specimen / Unknown 03/12/2025 12:56 PM EDT 03/12/2025 2:21 PM EDT [facility] LAB BLOOD ORDERABLES Marizol l Result [facility] [address] [place] [address] [phone] * (ABNORMAL) Comprehensive Metabolic Panel (03/12/2025 12:56 PM EDT) Sodium 139 135 - 145 mmol/L [facility] Potassium 3.7 3.3 - 5.1 mmol/L [facility] Chloride 107 96 - 108 mmol/L [facility] Carbon Dioxide 25 22 - 29 mmol/L [facility] Anion Gap 11(L) 12 - 20 [facility] Urea Nitrogen (BUN) 11 9 - 16 mg/dL [facility] Creatinine, Serum 0.70 0.5 - 1.4 mg/dL [facility] Estimated Glomerular Filt Rate >60 [facility] Comment:Chronic Kidney Disea se: Estimated GFR < 60 mL/min/1.81b0Kzmpev Kidney Disease: Estimated GFR < 15 mL/min/1.73m2 Glucose 78 60 - 115 mg/dL [facility] Calcium 8.8 8.4 - 10.2 mg/dL [facility] Bilirubin, Total 0.4 0.0 - 1.0 mg/dL [facility] Aspartate Amino Transferase 25 5 - 31 U/L [facility] Alanine Aminotransferase 16 0 - 31 U/L [facility] Total Protein 6.8 6.5 - 8.0 g/dL [facility] Albumin Level 4.2 3.5 - 5.0 g/dL [facility] Alkaline Phosphatase 43 39 - 117 U/L [facility] Blood Venous blood specimen / Unknown 03/12/2025 12:56 PM EDT 03/12/2025 2:21 PM EDT [facility] LAB BLOOD ORDERABLES Marizol l Result Performing Organization Address [facility]/ZIP Co de Phone Number [facility] [address] [place] [address] [phone] * T-SPOT??.TB (02/23/2025 10:31 AM EDT) T Spot TB Negative Negative [facility] Comment:A negative test resu lt does [...] as aquantitative test. TS PANEL A 3 [facility] TS PANEL B 0 [facility] Negative Control Passed [facility] Positive Control Passed [facility] Comment:For additional infor emerald, please refer tohttp://education.OneTrueFan.[employer]/faq/WUT832(This link is being provided for informational/educational purposes only.)THIS TEST WAS PERFORMED AT:[employer] [id number] [place] [id number] GALVAN MD,PHD 02/23/2025 10:3 1 AM EDT 02/23/2025 1:55 PM EDT Betsy Waldrop MD LAB BLOOD ORDERABLES Final Re sult Performing Organization Address [facility] Co de Phone Number [facility] [address] [place] [address] [phone] * TSH W/Reflex to FT4 (02/23/2025 10:31 AM EDT) TSH reflex Free T4 2.71 0.32 - 4.0 uIU/mL [facility] Blood Venous blood specimen / Unknown 02/23/2025 10:31 AM EDT 02/23/2025 1:55 PM EDT Betsy Waldrop MD LAB BLOOD ORDERABLES Final Re sult Performing Organization Address [facility]/ZIP Co de Phone Number [facility] [address] [place] [phone] * Hepatitis C Antibody with Reflex to HCV, RNA, Quantitative, Real-Time PCR (05/26/2024 3:54 PM EST) Pathologist [facility] Hepatitis C Antibody Nonreactive Nonreactive [facility] Comment:Antibodies to HCV no t detected; does not exclude early acuteHCV infection. Blood Venous blood specimen / Unknown 05/26/2024 3:54 PM EST 05/26/2024 3:54 PM EST Betsy Waldrop MD LAB BLOOD ORDERABLES Final Re sult Performing Organization Address [facility]/ZIP Co de Phone Number [facility] [address] [place] [phone] * HIV-1/2 Antigen and Antibodies, Fourth Generation, with Reflexes (05/26/2024 3:54 PM EST) HIV AB/AG Nonreactive Nonreactive [facility] Comment:HIV-1 p24 Ag and/or HIV-1/HIV-2 Ab not detected.A test result that is nonreactive does not exclude thepossibility of exposure to or infection with HIV-1 and/orHIV-2. Nonreactive results in this assay for individualswith prior exposure to HIV-1 and/or HIV-2 may be due toantigen and antibody levels that are below the limit ofdetection of this assay.The [employer] HIV Ag/Ab Combo assay result andsupplemental assay results should be interpreted inconjunction with the patient's clinical presentation,history and other laboratory results. If the results areinconsistent with clinical evidence, additional testing issuggested to confirm the result. Blood Venous blood specimen / Unknown 05/26/2024 3:54 PM EST 05/26/2024 3:54 PM EST us Betsy Waldrop MD LAB BLOOD ORDERABLES Final Re sult [facility] [address] [place] [address] [phone] * Pap Smear (02/04/2024 12:00 AM EDT) SOURCE: SEE NOTE [facility] Comment:None given Report Status: [facility] Clinical Information: SEE NOTE [facility] Comment:None given LMP: SEE NOTE [facility] Comment:NONE GIVEN Prev. PAP: SEE NOTE [facility] Comment:NONE GIVEN Prev. BX: SEE NOTE [facility] Comment:NONE GIVEN Statement Of Adequacy: SEE NOTE [facility] Comment:Satisfactory for gavin luation.Endocervical/transformation zone componentpresent. General Categorization: [facility] Interpretation/Result: SEE NOTE [facility] Comment:Cytology Results: Ne gative for intraepitheliallesion or malignancy. Cytology Comment SEE NOTE [facility] Comment:This Pap test has be en evaluated with computerassisted technology. Pediatric Dental Assistant: SEE NOTE [facility] Comment:YP, CT(ASCP)CT scree jessica location: [address] [address] Review Pediatric Dental Assistant: SEE NOTE [facility] Comment:SL, CT(ASCP)CT scree jessica location: [address] [address] Pathologist [facility] PAP Infection [facility] See Note SEE NOTE [facility] Comment:EXPLANATORY NOTE:The Pap is a screening test for cervical cancer. It isnot a diagnostic test and is subject to false negativeand false positive results. It is most reliable when asatisfactory sample, regularly obtained, is submittedwith relevant clinical findings and history, and whenthe Pap result is evaluated along with historic andcurrent clinical information.THIS TEST WAS PERFORMED AT:[facility] [place] [phone] VALLE MD Pap Vial Vaginal structure / Unknown 02/04/2024 02/04/2024 Narrative [facility] - 02/07/2024 10:36 AM EDT SEE SCANNED RESULTS IN EMR us Betsy Waldrop MD LAB PATHOLOGY ORDERABLES Marizol benitez Result [facility] [address] [place] [address] [phone] * HPV mRNA E6/E7 w/Reflex to HPV Genotypes 16, 18/45 (02/04/2024 12:00 AM EDT) HPV nRNA E6/E7 NOT DETECTED [facility] Comment:Methodology: Transcr iption-Mediated AmplificationThis assay detects E6/E7 viral messenger RNA (mRNA) from 14high-risk HPV types(16,18,31,33,35,39,45,51,52,56,58,59,66,68).Cervical sources are required for HPV testing.If a vaginal source from a patient who has had atotal hysterectomy with removal of cervix wassubmitted, please contact the testing laboratoryfor alternative testing options.For additional information, please refer tohttp://education.HotDesk/faq/QQV973r8(This link if provided for information/educational purposes only.)THIS TEST PERFORMED AT:[facility] [place] [phone] DIRECTOR: PERLA VALLE MD HPV mRNA E6/E7 [facility] HPV 16 RNA [facility] HPV 18/45 RNA [facility] Vaginal Fluid Cervix uteri structure / Unknown 02/04/2024 02/04/2024 Narrative [facility] - 02/07/2024 10:36 AM EDT SEE SCANNED RESULTS IN EMRCollection Date: [id number] by: FIDE Carr: Cervix us Betsy Waldrop MD LAB CYTOLOGY ORDERABLES Final Result [facility] [address] [place] [address] [phone] from Last 3 Months or Most Recently Relevant to Health Maintenance [place] [place] [address] C3 Care Teams Machine Ii Coremaker Relationship Specialty Start Date End Date Betsy Waldrop MD [address] [place] [phone] PCP - General Family Medicine 08/30/22
--- OUTSIDE RECORDS SUMMARY | 2025-04-23 10:44 | XMS_ITS | Clinical Summary ---
Author Organization [facility] Address [address] [place] [address] Care Team Providers Care Buttoner Name Role Phone Unavailable Primary Care Provider [...] 5 season) 2025 Influenza Vaccine (#1) 2025 RSV Immunization Adult Patie nts (1 - 1-dose 75+ series) 2053 HIB Vaccines Aged Out No longer eligi [...]
--- OUTSIDE RECORDS SUMMARY | 2025-04-23 10:44 | XMS_ITS | Encounter Summary ---
Author Organization [facility] Address [address] [place] [address] Care Team Providers Care Warehouse Stocker Name Role Phone Max Arizmendi Primary Care Provider [phone] Tammy aNylor LPCA Unavailable Anusha Molina FAMILY LIFE EDUCATOR Unavailable [phone] Rachele Ornelas SPEECH PATHOLOGY ASSISTANT Unavailable [phone] Encounter Details Date Type Department Care Team (Late st Contact Info) Description 09/07/2020 [address]quisition [place] [address] [place] [address] Dar Robison MD [address] [place], [place] [phone] Encounter for laboratory testing for COVID-19 virus [...] Date/Time Associated Diagnosis Comments COVID-19 (SARS-COV-2) - [facility] Routine 09/07/2020 11:45 AM EST Encounter for laboratory testing for COVID-19 virus [ICD-10-CM] documented in this encounter Results * COVID-19 (SARS-COV-2) ([facility]) (09/07/2020 11:45 AM EST) COVID-19 RT-PCR NOT-DETEC LEONARDO Not-Detec leonardo 09/08/2020 3:10 PM EST [facility] Comment:Interpretation: The viral RNA was not detected, making the COVID-19 diagnosis less likely. Clinical correlation is highly recommended.Final report signed by Lelsie Carlson, Ph.D., Laboratory DirectorTests performed at [facility] Nasopharyngeal swab / Unknown 09/07/2020 11:45 AM EST 09/07/2020 11:45 AM EST Narrative [facility] - 09/08/2020 3:10 PM EST Performed by [facility] [address] [place] [id number], CLIA# [id number] and [place] License# [id number] us Dar Robison MD MICROBIOLOGY - GENERAL ORDER JIMMIE Final Result MERLIN ARAUZ documented in this encounter Visit Diagnoses Diagnosis Encounter for laboratory testing for COVID-19 virus documented in this encounter Care Teams Warehouse Stocker Relationship Specialty Start Date End Date Max Arizmendi [address] [place] [address] PCP - General 09/01/19 Tammy Naylor LPCA [address] [place] [address] Clinician Social Work 05/03/20 02/21/22 Anusha Molina APRN [address] [place] [address] Primary BH Attending Psychiatry, General 05/06/2002/22 Rachele Ornelas LCSW [address] [place] [address] Computer Customer Support Specialist Clinical Social Work 05/24/20 02/21/22 documented as of this encounter
--- OUTSIDE RECORDS SUMMARY | 2025-04-23 10:44 | XMS_ITS | Clinical Summary ---
Author Organization Formerly [facility] Address [address] [place] [address] Care Team Providers Care Field Assessor Name Role Phone Max Arizmendi Primary Care Provider [phone] Allergies Active Allergy Reactions Criticality Noted Date [...] empty stomach. 90 tablet 1 2 Active Ogb-KvNsqt-PM-DHA (Vitafol-One) 29-1-200 MG CapIndications:Esha haas is a [...] (09/30/2020): Added automatically from request for surgery [id number] Assessment & Plan (11/03/2020 10:48 AM EDT): [...] was recommended to per her provider at [facility] Assessment & Plan (08/30/2021 4:27 PM [...] past but not on meds since 2018. environmental services director referral placed. DF Assessment & [...] (03/22/2018): Added automatically from request for surgery [id number] Assessment & Plan (04/27/2020 4:24 PM EDT): Patient reports history of herniated disk and sciatica. Will have anesthesia consult later in . Lumbar radiculopathy 03/19/2018 020 Overview (03/22/2018): Added automatically from request for surgery [id number] Immunizations Immunization Administration Dates Next Due Influenza [...] Confirmation (09/29/2020 3:36 PM EDT) Pathologist [facility] HIV 1/2 Ag/Ab CMIA Nonreactive Nonreactive HOSPITAL LAB Comment: Results show no evidence of infection by HIV 1/2. If clinically indicated, repeat CMIA or test by nucleic acid amplification. Performed at [facility], [place], [place] License 0385 CLIA [id number] Blood specimen (specimen) Blood specimen / Unknown 09/29/2020 3:36 PM EDT 09/29/2020 6:22 PM EDT us Audrey Luevano MD LAB BLOOD ORDERABLES Marizol l Result HOSPITAL LAB * Hepatitis C Virus (HCV) Antibody (04/08/2020 11:00 AM EDT) Pathologist [facility] Hepatitis C Antibody 0.15 0.00 - 0.79 S/CO ratio HOSPITAL LAB Hepatitis C Antibody Interpretation Nonreactive Nonreactive HOSPITAL LAB Comment:Performed at [facility], [place], [place] License 0385 CLIA [id number] Blood specimen (specimen) Heel structure / Unknown 04/08/2020 11:00 AM EDT 04/08/2020 12:32 PM EDT us Rachele Cheung MD LAB BLOOD ORDERABLES Final Result HOSPITAL LAB from Last 3 Months or Most Recently Relevant to Health Maintenance Insurance [facility] Advance Directives * [...] 6:42 PM 06/28/2019 5:12 PM Care Teams Field Assessor Relationship Specialty Start Date End Date Max Arizmendi [address] [place] [address] PCP - General 09/01/19
--- OUTSIDE RECORDS SUMMARY | 2025-04-23 10:44 | XMS_ITS | Encounter Summary ---
Author Organization [employer] Address [address] [facility] 7t [place] [address] Care Team Providers Care Watch Supervisor Name Role Phone Betsy Waldrop MD Primary Care Provider [phone] Reason for Visit * Reason Onset Date Comments Reschedule 12/17/2023 chart prep 12/17/2023 Encounter Details Date Type Department Care Team ([facility] st Contact Info) Description 12/17/2023 Telephone [facility] [address] [place] [address] Betsy Waldrop MD [address] [place] [address] Reschedule; chart prep Social History Tobacco Use [...] 12/16 PAP appointment. Please contact pt at [phone] documented in this encounter Plan of Treatment Not on file documented as of this encounter Visit Diagnoses Not on filedocumented in this encounter Additional Health Concerns Assessment Noted Time PHQ-9 Depression Total Score: 13 024 8:42 AM EDT documented as of this encounter Care Teams Watch Supervisor Relationship Specialty Start Date End Date Betsy Waldrop MD [address] [place] [address] PCP - General Family Medicine 08/30/22 documented as of this encounter
--- OUTSIDE RECORDS SUMMARY | 2025-04-23 10:44 | XMS_ITS | Encounter Summary ---
Author Organization [facility] Address [address] [place] [address] Care Team Providers Care As400 Consultant Name Role Phone Max Arizmendi Primary Care Provider Tammy Nalyor LPCA Unavailable Anusha Molina LIFT BUILDER WHOLE Unavailable Rachele Ornelas GUN REPAIR CLERK Unavailable Encounter Details Date Type Department Care Team (Late st Contact Info) Description 09/05/2020 Telephone [facility] Maternal Medicine [address] [address] Phoenix Gallardo MD [address] [place] [address] Social History Tobacco Use Types Packs/Day Years [...] on filedocumented in this encounter Care Teams As400 Consultant Relationship Specialty Start Date End Date Ugo Max [address] [place] [address] PCP - General 09/01/19 Tammy Naylor LPCA [address] [place] [address] Clinician Social Work 05/03/20 02/21/22 Anusha Molina APRN [address] [place] [address] Primary BH Attending Psychiatry, General 05/06/2002/22 Backer Rachele Lawrence LCSW [address] [place] [address] Dye House Wheel Operator Clinical Social Work 05/24/20 02/21/22 documented as of this encounter
--- OUTSIDE RECORDS SUMMARY | 2025-04-23 10:44 | XMS_ITS | Encounter Summary ---
Author Organization [facility] Address [address] [place] [address] Care Team Providers Care Freight Engineer Name Role Phone UgoMax Primary Care Provider [phone] Reason for Visit * Reason Comments Medication Refill Encounter Details Date Type Department Care Team (Late st Contact Info) Description 07/19/2022 Refill [facility] [address] [place] [address] Dolly Enamorado MD 85 [facility] [address] [place], [place] [phone] Primary hypothyroidism Social History Tobacco Use Types [...] hypothyroidism documented in this encounter Care Teams Freight Engineer Relationship Specialty Start Date End Date Max Arizmendi [address] [place] [address] PCP - General 09/01/19 documented as of this encounter
--- OUTSIDE RECORDS SUMMARY | 2025-04-23 10:44 | XMS_ITS | Encounter Summary ---
Author Organization [employer] Address [address] [facility] 7t [place] [address] Care Team Providers Care Lead Java Programmer Name Role Phone Betsy Waldrop MD Primary Care Provider [phone] Encounter Details Date Type Department Care Team (Late st Contact Info) Description 11/19/2024 Orders Only [facility] [address] [place], [place] [phone] Velia Hudson MD [address] [place] [address] Anemia, unspecified type (Primary Dx) Social History [...] the past 12 months, has t he [employer], gas, oil or water company threatened to [...] Reticulocytes Absolute 0.055 0.026 - 0.095 X10*6/uL [facility] Immature Retic Fraction 19.5(H) 3.0 - 15.9 % [facility] Retic HGB Equivalent 21.1(L) 30.0 - 35.0 pg [facility] Reticulocyte Percent 1.2 0.5 - 1.8 % [facility] Blood Venous blood specimen / Unknown 11/24/2024 11:23 AM EDT 11/24/2024 2:17 PM EDT us Velia Hudson MD LAB BLOOD ORDERABLES Final Result [facility] [address] [place] [address] [phone] documented in this encounter Visit Diagnoses Diagnosis Anemia, unspecified type- Primary documented in this encounter Additional Health Concerns Assessment Noted Time PHQ-9 Depression Total Score: 13 024 8:42 AM EDT documented as of this encounter Care Teams Lead Java Programmer Relationship Specialty Start Date End Date Betsy Waldrop MD [address] [place] [address] PCP - General Family Medicine 08/30/22 documented as of this encounter
--- OUTSIDE RECORDS SUMMARY | 2025-04-23 10:44 | XMS_ITS | Clinical Summary ---
Author Organization [facility] Address [address] [place] [address] Care Team Providers Care Wool Dyer Name Role Phone Unavailable Primary Care Provider [...] this topic ObrienVeroniqueYani Personal/Family Self 1980 [address] [facility] [address] [address] Obrien,Yani Behavioral Health Self 1980 [address] [facility] [address] [address]
--- OUTSIDE RECORDS SUMMARY | 2025-04-23 10:44 | XMS_ITS | Encounter Summary ---
Author Organization [facility] Address [address] [place] [address] Care Team Providers Care Cq Developer Name Role Phone Max Arizmendi Primary Care Provider Tammy Naylor LPCA Unavailable Anusha Molina IT SUPPORT CONSULTANT Unavailable Rachele Ornelas QUALITY ASSURANCE INSPECTOR Unavailable [phone] Encounter Details Date Type Department Care Team (Late st Contact Info) Description 10/27/2020 Prep for Surgery [facility] [address] [place] [address] Ashley Piña MD [facility] [address] [facility] [address] [place] [address] Social History Tobacco Use Types Packs/Day Years [...] Bassem Piña MD PGY-3 [facility] ARBITRATOR (p) 10/27/20 12:01 PM Chief Complaint: I'm [...] oz) M CS-LTranv LANI Comments: preeclampsia Past DATABASE MARKETING SPECIALIST History: Denies history of abnormal pap smear Denies history of STIs Past Medical History: Past Medical History: Diagnosis Date ??? Anxiety ??? Depressed ??? Disease of thyroid gland Past Surgical History: Past Surgical History: Procedure Laterality Date ??? SECTION ??? CHOLECYSTECTOMY ??? OK NJX DX/THER SBST INTRLMNR LMBR/SAC W/IMG GDN Right 03/22/2018 Procedure: IR Epidural Inject Steroid Lumbar/Sacral w/img; Surgeon: Rakesh Garvey MD; Location: [facility]; Service: Interventional Radiology Social History: Denies [...] tablet 3 ??? Blood Glucose Monitoring Suppl (The Blaze) w/Device Kit USE TO TEST BLOOD GLUCOSE [...] by mouth daily. 14 packet 1 ??? Bpd-MaPiuu-LA-DHA ( MULTIVITAMIN PER STATE FORMULARY) tablet Take 1 tablet by mouth daily as directed. Dispense Brand per State Formulary. 30 tablet 11 ??? SUPPLY [facility] cradle. Length of need 6 months. [...] be obtained on admission Cosigned by Audrey Luevnao MD at 10/27/2020 1:27 PM EDT Associated attestation - Audrey Luevano MD - 10/27/2020 1:27 PM EDT Agree with resident H+P documented in this encounter Plan of Treatment Not on file documented as of this encounter Visit Diagnoses Not on filedocumented in this encounter Care Teams Cq Developer Relationship Specialty Start Date End Date Max Arizmendi [address] [place] [address] PCP - General 09/01/19 Tammy Naylor LPCA [address] [place] [address] Clinician Social Work 05/03/20 02/21/22 Anusha Molina APRN [address] [place] [address] Primary BH Attending Psychiatry, General 05/06/2002/22 Backer Rachele Lawrence LCSW [address] [place] [address] Drawbench Operator Helper Clinical Social Work 05/24/20 02/21/22 documented as of this encounter
--- OUTSIDE RECORDS SUMMARY | 2025-04-23 10:44 | XMS_ITS | Encounter Summary ---
Author Organization [employer] Address [address] [facility] 7t [place] [address] Care Team Providers Care Senior Manager Asset Protection Name Role Phone Betsy Waldrop MD Primary Care Provider [phone] Reason for Visit * Reason Onset Date Comments Nurse Triage 04/23/2024 Encounter Details Date Type Department Care Team (Late st Contact Info) Description 04/23/2024 Telephone [facility] MED [facility] PEDS [address] [place], [place] [phone] Betsy Waldrop MD [address] [place] [address] Nurse Triage Social History Tobacco Use Types [...] the past 12 months, has t he [employer], gas, oil or water company threatened to [...] documented as of this encounter Care Teams Senior Manager Asset Protection Relationship Specialty Start Date End Date Betsy Waldrop MD [address] [place] [address] PCP - General Family Medicine 08/30/22 documented as of this encounter
--- OUTSIDE RECORDS SUMMARY | 2025-04-23 10:44 | XMS_ITS | Encounter Summary ---
Author Organization [facility] Address [address] [place] [address] Care Team Providers Care Set Up Worker Name Role Phone Max Arizmendi Primary Care Provider Tammy Naylor LPCA Unavailable Anusha Molina AIR CONDITIONING MANAGER Unavailable Rachele Ornelas STRATEGY PLANNING CONSULTANT Unavailable Encounter Details Date Type Department Care Team (Late st Contact Info) Description 09/29/2020 Prep for Surgery [facility] [address] [place] [phone] Lori Lau MD [address] [place] [address] Diet controlled gestational diabetes mellitus (GDM) in [...] Primary documented in this encounter Care Teams Set Up Worker Relationship Specialty Start Date End Date Max Arizmendi [address] [place] [address] PCP - General 09/01/19 Tammy Naylor LPCA [address] [place] [address] Clinician Social Work 05/03/20 02/21/22 Anusha Molina APRN [address] [place] [address] Primary Attending Psychiatry, General 05/06/2002/22 Rachele Ornelas LCSW [address] [place] [address] Customer Project Manager Clinical Social Work 05/24/20 02/21/22 documented as of this encounter
--- NOTE | 2025-04-23 11:44 | MHC.OFFVISWM ---
VS Expanded 04/23/25 11:45 Height 5 ft 1 in Weight 120 lb BMI 22.7 Intake Visit Reasons: TV Pre Op Panniculectomy 05/06/25 Allergies diphenhydramine (From Benadryl) Allergy (Mild, Verified 04/23/25 11:45) Palpitations Medication List - Last Reconciled 04/23/25 by Partha Kelsey MD biotin (Hair, Skin and Nails (biotin)) 10,000 mcg PO DAILY cephalexin 500 mg PO Q12H clotrimazole 1% (Antifungal (clotrimazole)) 1 appl topical BID docusate sodium (Colace) 100 mg PO DAILY iron,carbonyl-vitamin C 65 mg iron- 125 mg (Vitron-C) 1 tab PO DAILY levothyroxine 100 mcg PO DAILY multivitamin (Daily Multi-Vitamin tablet) 1 tab PO DAILY ondansetron 4 mg PO Q12H HPI HPI TV Pre Op Panniculectomy 05/06/25: Details: Start time: 11.41am, End time: 12.01pm ?I spent 15 minutes speaking with the patient on the phone plus an additional 5 minutes reviewing and updating records for a total of 20 minutes HPI Comments Details: Overall weight loss: 92.4lbs, or 43.5% TBWL Is doing one powdered Premier shake (2 scoops in water or almond milk) and 2 meals per (4 forks of meat and 4 forks salad) [facility] Medical History (Updated 04/23/25 @ 11:42 by Partha Kelsey MD) Postgastrectomy malabsorption Depression Bipolar disorder Iron deficiency anemia PONV (postoperative nausea and vomiting) Migraines Arthritis Lico's disease Anxiety Sciatica History of herniated intervertebral disc Hyperlipidemia DJD (degenerative joint disease) GERD (gastroesophageal reflux disease) Surgical History (Updated 04/22/25 @ 08:29 by Ele Bailey RN) History of sleeve gastrectomy H/O Spinal surgery Hx of section Hx of cholecystectomy Family History Mother Diabetes Hypertension Father No problems noted. Son No problems noted. Son No problems noted. Daughter No problems noted. Social History Household Members: Family Housing: Apartment Are you a primary certified social workers in health care to a significant other at home: Yes Do you presently have visiting nurse or other home services: No Alcohol intake: never Patient Tobacco Use Status: Current everyday Tobacco user Tobacco use type: Cigarette Cigarettes Per Day: 4 service: No Telehealth Telehealth Telehealth Platform: Telephone Location of provider rendering services: practice address Location of patient: address on file Patient Identification confirmed using: Name, : Yes Telehealth method: voice only Patient verbally consented to treatment: Yes Patient verbally consented to billing insurance company: Yes Patient informed of any privacy concerns related to visit: Yes Minutes spent on Phone/Video with Pt.: 20 Assessment & Plan Assessment & Plan (1) Excess skin: Code(s): L98.7 - Excessive and redundant skin and subcutaneous tissue Category: Medical Plan: 1. Plan for panniculectomy. Risks of infection, bleeding, asymmetry, wound dehiscence and blood clots were discussed with the patient. 2. You will have a drain the abdomen that may stay a few weeks before it may be removed 3. You will need to be doing sponge baths the first 1-2 weeks. No showers. You need to have help at home to get you up and limit your activities as much as possible for at least the 4-6 weeks after surgery 4. We will arrange for a visiting nurse to come at home to help you with dressing changes and send me pictures of the procedures. We will send at your home supplies for the dressing changes. 5. Continue change nutritional plan to TWO Premier shakes (HALF scoop EACH in 8oz almond milk) at 6am-8am and 9am-11am, one Pure protein bar at 12pm-2pm, one more Premier shake (HALF scoop in 8oz almond milk) at 3pm-5pm, dinner at 6pm (4 forks of meat and 4 forks of salad or vegetables). If needed, another HALF Pure protein bar at 8pm-9pm.? This will improve weight loss and healing after surgery. 6. Continue all your medications until the day after surgery 7. Start the Colace now and take one per day, daily. 8. Do blood work not fasting any day between Saturday04/26/25 and Saturday04/30/25 and continuous pickling line pickler the antibiotic prescription from your pharmacy 9. Risks and complications were discussed the possibility of bleeding that may require transfusion, loss of the umbilicus, wound dehiscence or infection, dog ears , flap asymmetry. We also discussed the importance of strict avoidance of weight lifting. 10. Avoid aspirin, motrin, ibuprofen, Excedrin, Meloxicam, Aleve, Advil, Naproxyn. Only Tylenol Orders: Orders Vitamin A Today K91.2 - Postsurgical malabsorption, not elsewhere classified, Z90.3 - Acquired absence of stomach [part of] Prothrombin Time INR Today K91.2 - Postsurgical malabsorption, not elsewhere classified, Z90.3 - Acquired absence of stomach [part of] Vitamin B1 Today K91.2 - Postsurgical malabsorption, not elsewhere classified, Z90.3 - Acquired absence of stomach [part of] Lipid Panel Today K91.2 - Postsurgical malabsorption, not elsewhere classified, Z90.3 - Acquired absence of stomach [part of] Type and Screen Today K91.2 - Postsurgical malabsorption, not elsewhere classified, Z90.3 - Acquired absence of stomach [part of] Vitamin B12 Today K91.2 - Postsurgical malabsorption, not elsewhere classified, Z90.3 - Acquired absence of stomach [part of] Ferritin Today K91.2 - Postsurgical malabsorption, not elsewhere classified, Z90.3 - Acquired absence of stomach [part of] Zinc Today K91.2 - Postsurgical malabsorption, not elsewhere classified, Z90.3 - Acquired absence of stomach [part of] Insulin Today K91.2 - Postsurgical malabsorption, not elsewhere classified, Z90.3 - Acquired absence of stomach [part of] IRON PROFILE Today K91.2 - Postsurgical malabsorption, not elsewhere classified, Z90.3 - Acquired absence of stomach [part of] Comprehensive Met. Panel Today K91.2 - Postsurgical malabsorption, not elsewhere classified, Z90.3 - Acquired absence of stomach [part of] TSH reflex Free T4 Today K91.2 - Postsurgical malabsorption, not elsewhere classified, Z90.3 - Acquired absence of stomach [part of] Hemoglobin A1c Today K91.2 - Postsurgical malabsorption, not elsewhere classified, Z90.3 - Acquired absence of stomach [part of] C Reactive Protein Today K91.2 - Postsurgical malabsorption, not elsewhere classified, Z90.3 - Acquired absence of stomach [part of] Partial Thromboplastin Time Today K91.2 - Postsurgical malabsorption, not elsewhere classified, Z90.3 - Acquired absence of stomach [part of] Vitamin D 25-OH Total Today K91.2 - Postsurgical malabsorption, not elsewhere classified, Z90.3 - Acquired absence of stomach [part of] Complete Blood Count Auto Diff Today K91.2 - Postsurgical malabsorption, not elsewhere classified, Z90.3 - Acquired absence of stomach [part of] Medications: New docusate sodium (Colace) 100 mg PO DAILY 90 caps 0RF K59.00 - Constipation, unspecified cephalexin 500 mg PO Q12H 60 caps 2RF M79.3 - Panniculitis, unspecified ondansetron Only take one every 12 hours as needed if you have nausea 4 mg PO Q12H 20 tabs 0RF nausea and vomiting R11.0 - Nausea
[2025-04-23 11:45] VITALS: BMI 22.7
== END 2025-04-23 12:02 | disposition home or self-care (01) ==
LOC: HO.HBS 09:31
PROVIDERS: Visit Provider Surgery
DX: L98.7 Excessive and redundant skin and subcutaneous tissue (principal)
CPT/HCPCS: 99214

== ENCOUNTER 2025-04-27 14:45 | Outpatient (REF) | payer MEDICAID, SELFPAY ==
[2025-04-27 15:19] LABS: MANUAL DIFF FLAG NO
[2025-04-27 15:36] LABS: Hematocrit 34.1 % (37.0-47.0); Hemoglobin 10.5 g/dl (12.0-16.0); Imm Gran Abs Auto 0.02 X10*3/uL (0.00-0.03); Imm Gran Pct Auto 0.4 % (0.0-0.4); Lymphocytes Absolute Auto 1.6 X10*3/uL (1.2-4.9); Mean Corpuscular HGB Conc 30.8 g/dl (31.0-35.0); Mean Corpuscular Hemoglobin 24.1 pg (27.0-33.0); Mean Corpuscular Volume 78.2 fL (80.0-98.0); NRBC Abs Auto 0.000 X10*3/uL (0.0-0.012); NRBC Pct Auto 0.0 /100WBC (0.0-0.2); Platelet Count 184 X10*3/uL (160-400); Red Blood Count 4.36 X10*6/uL (4.20-5.50); White Blood Count 5.0 X10*3/uL (4.8-10.8)
[2025-04-27 15:41] LABS: INTERNATIONAL NORM RATIO 0.9 (0.9-1.1); Prothrombin Time 10.4 SEC (10.9-12.4)
[2025-04-27 15:43] LABS: Partial Thromboplastin Time 28.2 SEC (26.7-34.1)
[2025-04-27 16:26] LABS: Vitamin B12 466 pg/mL (200-900)
[2025-04-27 17:15] LABS: Alanine Aminotransferase 16 U/L (0-31); Albumin Level 4.1 g/dL (3.5-5.0); Alkaline Phosphatase 42 U/L (39-117); Anion Gap 11 (12-20); Aspartate Amino Transferase 23 U/L (5-31); Blood Urea Nitrogen 13 mg/dL (9-16); Calcium 8.7 mg/dL (8.4-10.2); Carbon Dioxide 25 mmol/L (22-29); Chloride 108 mmol/L (96-108); Cholesterol 166 mg/dL (<200); Estimated Glomerular Filt Rate > 60; HDL Cholesterol 66 mg/dL (>40); Iron 18 mcg/dL (30-160); Percent Iron Saturation 5 % (15-50); Potassium 3.7 mmol/L (3.3-5.1); Sodium 140 mmol/L (135-145); Total Iron Binding Capacity 340 mcg/dL (228-428); Total Protein 6.9 g/dL (6.5-8.0); Triglycerides 38 mg/dL (<150); Unsaturated Iron Binding 322 ug/dL
[2025-04-27 17:19] LABS: Ferritin 12 ng/mL (10-250)
--- OUTSIDE RECORDS SUMMARY | 2025-04-27 19:51 | XMS_ITS | Encounter Summary ---
Author Organization [facility] Address [address] [place] [address] Care Team Providers Care Technical Services Consultant Name Role Phone Max Arizmendi Primary Care Provider [phone] Tammy Naylor LPCA Unavailable [phone] Anusha Molina SPUDDER Unavailable Rachele Ornelas DATA OPERATIONS DIRECTOR Unavailable [phone] Encounter Details Date Type Department Care Team (Late st Contact Info) Description 03/24/2020 [facility] 85 [facility] [address] [place] [phone] Dolly Enamorado MD 85 [facility] [address] [place] [address] Hypothyroidism (acquired) (Primary Dx) Social History Tobacco [...] Performing Organization Information: Site ID: [id number] Name: [facility] Address: [address] [place] [address], [place] [address] Director: Deanne Mcdonough MD us Dolly Enamorado MD LAB BLOOD ORDERABLES Final R esult [facility] [address] [place] [address], [place] [address] * T4, Free (04/15/2020 2:52 PM EDT) T4, Free 1.3 0.8 - 1.8 ng/dL [facility] Blood specimen (specimen) Heel structure / Unknown 04/15/2020 2:52 PM EDT 04/15/2020 2:52 PM EDT Narrative [facility] - 04/16/2020 3:40 AM EDT FASTING:NO FASTING: NO Resulting Agency Comment Performing Organization Information: Site ID: [id number] Name: [employer] [facility] Address: [address] [place] [address], [facility] [place] [address] Director: Deanne Mcdonough MD Dolly Enamorado MD LAB BLOOD ORDERABLES Final R esult [facility] [address], [place] [address] documented in this encounter Visit Diagnoses Diagnosis Hypothyroidism (acquired)- Primary Unspecified hypothyroidism documented in this encounter Care Teams Technical Services Consultant Relationship Specialty Start Date End Date Max Arizmendi [address] [place] [address] PCP - General 09/01/19 Tammy Naylor LPCA [address] [place] [address] Clinician Social Work 05/03/20 02/21/22 Anusha Molina APRN [address] [place] [address] Primary BH Attending Psychiatry, General 05/06/2002/22 Backer Rachele Lawrence LCSW [address] [place] [address] Shirt Turner Clinical Social Work 05/24/20 02/21/22 documented as of this encounter
--- OUTSIDE RECORDS SUMMARY | 2025-04-27 19:51 | XMS_ITS | Encounter Summary ---
Author Organization [facility] Address [address] [place] [address] Care Team Providers Care Ship'S Carpenter Name Role Phone Max Arizmendi Primary Care Provider Tammy Naylor LPCA Unavailable Anusha Molina PRACTICE CONSULTANT Unavailable Rachele Ornelas GAMING WORKER Unavailable Reason for Visit * Reason Comments Medication Refill Encounter Details Date Type Department Care Team (Late st Contact Info) Description 12/07/2020 Refill [facility] [address] [place] [phone] Josie Bingham MD [address] [place], [place] [phone] History of 2 sections Social History Tobacco [...] sections documented in this encounter Care Teams Ship'S Carpenter Relationship Specialty Start Date End Date Max Arizmendi [address] [place] [address] PCP - General 09/01/19 Tammy Naylor LPCA [address] [place] [address] Clinician Social Work 05/03/20 02/21/22 Anusha Molina APRN [address] [place] [address] Primary BH Attending Psychiatry, General 05/06/2002/22 BackRachele Coley LCSW [address] [place] [address] Steel Spar Operator Clinical Social Work 05/24/20 02/21/22 documented as of this encounter
--- OUTSIDE RECORDS SUMMARY | 2025-04-27 19:51 | XMS_ITS | Encounter Summary ---
Author Organization [facility] Address [address] [place] [address] Care Team Providers Care Parachute Rigger Name Role Phone Max Arizmendi Primary Care Provider Tammy Naylor LPCA Unavailable Anusha Molina LATCHER Unavailable [phone] Rachele Ornelas COMMUNITY DEVELOPMENT OFFICER Unavailable Reason for Visit * Reason Comments Medication Refill Encounter Details Date Type Department Care Team (Late st Contact Info) Description 02/21/2021 [facility]ill [facility] [address] [place] [phone] Dolly Enamorado MD 85 [facility] [address] [place], [place] [phone] Diet controlled gestational diabetes mellitus (GDM) in [...] trimester documented in this encounter Care Teams Parachute Rigger Relationship Specialty Start Date End Date Max Arizmendi [address] [place] [phone] PCP - General 09/01/19 Tammy Naylor LPCA [address] [place] [address] Clinician Social Work 05/03/20 02/21/22 Anusha Molina APRN [address] [place] [address] Primary BH Attending Psychiatry, General 05/06/2002/22 Backer Rachele Lawrence LCSW [address] [place] [address] Industrial Maintenance Technician Clinical Social Work 05/24/20 02/21/22 documented as of this encounter
--- OUTSIDE RECORDS SUMMARY | 2025-04-27 19:51 | XMS_ITS | Encounter Summary ---
Author Organization [facility] Address [address] [place] [address] Care Team Providers Care Manager Epic Name Role Phone Max Arizmendi Primary Care Provider [phone] Tammy Naylor LPCA Unavailable [phone] Anusha Molina SORTING AND FOLDING SUPERVISOR Unavailable Rachele Ornelas ALUMNI RELATIONS MANAGER Unavailable Encounter Details Date Type Department Care Team (Late st Contact Info) Description 11/21/2020 Scanned Document [facility] [address] [place] [address] [phone] Rachele Cheung MD [address] [place] [address] Social History Tobacco Use Types Packs/Day Years [...] on filedocumented in this encounter Care Teams Manager Epic Relationship Specialty Start Date End Date Ugo Destinycheng [address] [place] [address] PCP - General 09/01/19 Tammy Naylor LPCA [address] [place] [address] Clinician Social Work 05/03/20 02/21/22 Anusha Molina APRN [address] [place] [address] Primary BH Attending Psychiatry, General 05/06/2002/22 Rachele Ornelas LCSW [address] [place] [address] Vocational School Teacher Clinical Social Work 05/24/20 02/21/22 documented as of this encounter
--- OUTSIDE RECORDS SUMMARY | 2025-04-27 19:51 | XMS_ITS | Encounter Summary ---
Author Organization [facility] Address [address] [place] [address] Care Team Providers Care Pit Hand Name Role Phone Max Arizmendi Primary Care Provider [phone] Tammy Naylor LPCA Unavailable [phone] Anusha Molina GLOBAL MARKETING COORDINATOR Unavailable [phone] Rachele Ornelas GRID CASTER Unavailable Encounter Details Date Type Department Care Team (Late st Contact Info) Description 11/25/2020 Scanned Document [facility] [address] [place] [address] [phone] Josie Bingham MD [address] [place] [address] Social History Tobacco Use Types Packs/Day Years [...] on filedocumented in this encounter Care Teams Pit Hand Relationship Specialty Start Date End Date Ugo Destinycheng [address] [place] [address] PCP - General 09/01/19 Tammy Naylor LPCA [address] [place] [address] Clinician Social Work 05/03/20 02/21/22 Anusha Molina APRN [address] [place] [address] Primary BH Attending Psychiatry, General 05/06/2002/22 Rachele Ornelas LCSW [address] [place] [address] Helminthologist Clinical Social Work 05/24/20 02/21/22 documented as of this encounter
--- OUTSIDE RECORDS SUMMARY | 2025-04-27 19:52 | XMS_ITS | Encounter Summary ---
Author Organization [facility] Address [address] [place] [address] Care Team Providers Care Assistant Tennis Coach Name Role Phone Max Arizmendi Primary Care Provider Tammy Naylor LPCA Unavailable Anusha Molina DISC JOCKEY Unavailable Rachele Ornelas ARBORER Unavailable [phone] Encounter Details Date Type Department Care Team (Late st Contact Info) Description 09/29/[address] [facility] [address] [place] [address] [phone] Lori Lau MD [address] [place] [address] Diet controlled gestational diabetes mellitus (GDM) in [...] Primary documented in this encounter Care Teams Assistant Tennis Coach Relationship Specialty Start Date End Date Max Arizmendi [address] [place] [address] PCP - General 09/01/19 Tammy Naylor LPCA [address] [place] [address] Clinician Social Work 05/03/20 02/21/22 Anusha Molina APRN [address] [place] [address] Primary Attending Psychiatry, General 05/06/2002/22 Rachele Ornelas LCSW [address] [place] [address] Supervisor Sulfuric Acid Plant Clinical Social Work 05/24/20 02/21/22 documented as of this encounter
--- OUTSIDE RECORDS SUMMARY | 2025-04-27 19:52 | XMS_ITS | Clinical Summary ---
Author Organization [employer] Address [address] [facility] [address] [place] [address] Care Team Providers Care Animal Trapper Name Role Phone Betsy Waldrop MD Primary Care Provider [phone] Allergies Active Allergy Reactions Criticality Noted Date [...] intervention , Patient to reach out to [facility] team as needed, Patient to [...] Center 10/10/2023 3:15 PM Betsy Waldrop MD [facility] Insomnia due to other mental [...] recommended reduction of 20-30% of maintenance calories; human resource intern referral offered. Recommended to decrease soda and [...] (08/30/2022): Added automatically from request for surgery [id number] Last Assessment & Plan: Continue diet control. Patient did not bring meter or log today. Seen by nutrition Gestational thrombocytopenia 09/01/2020 10/04/2022 Overview (10/03/2022): Plts 144 on 09/01/20 Needs repeat CBC next visit (10/06/20) Last Assessment & Plan: Plt 158 at last visit 10/27/20 Encounters Date Type Department Care Team Description 04/27/[address] [facility] [address] [place] [address] India Parsons CNP Wheezing 03/09/2025 10:45 AM EDT Office Visit [facility] [address] [place] [address] India Parsons CNP Encounter for screening for malignant neoplasm of colon (Primary Dx); Encounter for physical examination; Acquired hypothyroidism; Iron deficiency anemia due to chronic blood loss; Polyarthralgia; Sinus congestion; Positive NORRIS (antinuclear antibody); Menorrhagia with regular cycle; Wheezing 03/09/2025 Travel 03/08/2025 Travel 03/05/[address] [facility] [address] [place] [address] Betsy Waldrop MD chart prep 03/01/[address] [facility] [address] [place] [address] Betsy Waldrop MD Pre-visit Planning (SDOH negative, Tobacco screening positive. ) 02/18/2025 Telephone [facility] [address] [place], [place] [phone] Betsy Waldrop MD Lab Orders 02/16/[address] [facility] [address] [place] [address] Betsy Waldrop MD Appointment Request from Last [...] Procedure Name Priority Date/Time Associated Diagnosis Comments VITAMIN B12 Routine 04/27/2025 3:02 PM EDT Anemia, unspecified type TYPE AND SCREEN Routine 04/27/2025 3:02 PM EDT Anemia, unspecified type HEMOGLOBIN A1C Routine 04/27/2025 3:02 PM EDT Anemia, unspecified type CBC WITH AUTO DIFFERENTIAL Routine 04/27/2025 3:02 PM EDT Anemia, unspecified type COMPREHENSIVE METABOLIC PANEL Routine 03/12/2025 12:56 PM [...] EDT Routine general medical examination at a health care facility TSH W/REFLEX TO FT4 Routine [...] Maintenance Results * (ABNORMAL) CBC auto differential (04/27/2025 3:02 PM EDT) Only the most recent of2 resultswithin the time period is included. White Blood Count 5.0 4.8 - 10.8 X10*3/uL [facility] Red Blood Count 4.36 4.20 - 5.50 X10*6/uL [facility] Hemoglobin 10.5(L) 12.0 - 16.0 g/dl [facility] Hematocrit 34.1(L) 37.0 - 47.0 % [facility] Mean Corpuscular Volume 78.2(L) 80.0 - 98.0 fL [facility] Mean Corpuscular Hemoglobin 24.1(L) 27.0 - 33.0 pg [facility] Mean Corpuscular HGB Conc 30.8(L) 31.0 - 35.0 g/dl [facility] Red Cell Distribution Width 21.0(H) 11.0 - 16.0 % [facility] Platelet Count 184 160 - 400 X10*3/uL [facility] Mean Platelet Volume 10.0 9.4 - 12.3 fL [facility] Neutrophils Percent Auto 56.5 45 - 73 % [facility] Imm Gran Pct Auto 0.4 0.0 - 0.4 % [facility] Lymphocytes Percent Auto 31.1 20 - 40 % [facility] Monocytes Percent Auto 8.4 2 - 11 % [facility] Eosinophils Percent Auto 2.0 0 - 4 % [facility] Basophils Percent Auto 1.6 0 - 2 % [facility] NRBC Pct Auto 0.0 0.0 - 0.2 /100WBC [facility] Neutrophils Absolute Auto 2.8 2.0 - 8.3 x10*3/uL [facility] Imm Gran Abs Auto 0.02 0.00 - 0.03 X10*3/uL [facility] Lymphocytes Absolute Auto 1.6 1.2 - 4.9 X10*3/uL [facility] Monocytes Absolute Auto 0.4 0.1 - 1.2 X10*3/uL [facility] Eosinophils Absolute Auto 0.1 0.0 - 0.4 X10*3/uL [facility] Basophils Absolute Auto 0.1 0.0 - 0.2 X10*3/uL [facility] NRBC Abs Auto 0.000 0.0 - 0.012 X10*3/uL [facility] 04/27/2025 3:02 PM EDT 04/27/2025 3:17 PM EDT us Generic External Data Provider LAB BLOOD ORDERAB LES Final Result [facility] [address] [place] [address] [phone] * Type and screen (04/27/2025 3:02 PM EDT) Blood Type BP [facility] Antibody Screen NEGATIVE [facility] 04/27/2025 3:02 PM EDT 04/27/2025 3:29 PM EDT Narrative [facility] - 04/27/2025 4:12 PM EDT Spec expiration changed by NISHANT on 04/27/25Reason: PAT SSSWITNESSED BY AGUSTIN.NURSING:Call Blood Bank (ext. [phone]) to band patient on admission.Type and Screen in effect until 2300 on 05/06/25 us Generic External Data Provider LAB BLOOD BANK TE ST ORDERABLES Final Result Performing Organization Address City/[facility]/ZIP Co de Phone Number [facility] [address] [place] [address] [phone] * Hemoglobin A1c (04/27/2025 3:02 PM EDT) Hemoglobin A1c 4.8 <6.0 % [facility] Comment:Hemoglobin A1C Refer ence Range Adults: 4.8 - 6.0 % Non diabetic: < 6.0 % Goal: < 7.0 %Additional Action Suggested: > 8.0 %Note: Hemoglobin A1c results are invalid for patients with abnormal amounts of HbF. Blood transfusions may impact the HbA1c concentration in the patient sample. Estimated Average Glucose 91 mg/dL [facility] Comment:eAG = Estimated ave rage glucose which is %A1C expressed asaverage glucose, using the formula of the C4X-GnlrdeaCbjgulv Glucose study (ADAG), Diabetes Care, Vol.31,#8,Feb. 2007 04/27/2025 3:02 PM EDT 04/27/2025 3:17 PM EDT us Generic External Data Provider LAB BLOOD ORDERAB LES Final Result Performing Organization Address [facility]/ZIP Co de Phone Number [facility] [address] [place] [address] [phone] * Vitamin B12 (04/27/2025 3:02 PM EDT) Vitamin B12 466 200 - 900 pg/mL [facility] Comment:NORMAL 200-900 PG/M L INDETERMINATE 160-199 PG/ML DEFICIENT < 160 PG/ML 04/27/2025 3:02 PM EDT 04/27/2025 3:17 PM EDT Generic External Data Provider LAB BLOOD ORDERAB LES Final Result Performing Organization Address [facility] Co de Phone Number [facility] [address] [place] [phone] * Hepatitis B surface antigen, EIA (03/12/2025 12:56 PM EDT) Pathologist [facility] Hepatitis B Surface Ag Negative Negative [facility] Blood Venous blood specimen / Unknown 03/12/2025 12:56 PM EDT 03/12/2025 2:21 PM EDT [facility] LAB BLOOD ORDERABLES Marizol l Result Performing Organization Address [facility] de Phone Number [facility] [address] [place] [phone] * Hepatitis B Core Antibody, Total (03/12/2025 12:56 PM EDT) Pathologist [facility] Hepatitis B Core Antibody Nonreactive Nonreactive [facility] Blood Venous blood specimen / Unknown 03/12/2025 12:56 PM EDT 03/12/2025 2:21 PM EDT [facility] LAB BLOOD ORDERABLES Marizol l Result Performing Organization Address [facility] de Phone Number [facility] [address] [place] [phone] * Hepatitis B Surface Antibody, Qualitative (03/12/2025 12:56 PM EDT) ~Hepatitis B Surface Antibody REACTIVE Nonreactive [facility] Comment:REACTIVE: > 11.99 mI U/mL Blood Venous blood specimen / Unknown 03/12/2025 12:56 PM EDT 03/12/2025 2:21 PM EDT [facility] LAB BLOOD ORDERABLES Marizol l Result Performing Organization Address [facility] Co de Phone Number [facility] [address] [place] [address] [phone] * Lipid Panel, Standard (03/12/2025 12:56 PM EDT) Triglycerides 32 <150 mg/dL [facility] Comment:Desirable Triglyceri de: less than 150 mg/dLBorderline High Triglyceride 150-199 mg/dLHigh Triglyceride: 200-499 mg/dLVery High Triglyceride: greater than or equal to 5OO mg/dL Cholesterol 156 <200 mg/dL [facility] Comment:Desirable Cholestero l: less than 200 mg/dLBorderline High Cholesterol: 200-239 mg/dLHigh Cholesterol: greater than 239 mg/dL LDL Cholesterol Calculated 87 <100 mg/dL [facility] Comment:Desirable LDL: less than 100 mg/dLNear Optimal/Above Optimal LDL: 110- 129 mg/dLBorderline High LDL: 130-159 mg/dLHigh LDL: 160-189 mg/dLVery High LDL: greater than or equal to 190 mg/dL HDL Cholesterol 63 >40 mg/dL [facility] Comment:Desirable HDL: great er than 40 mg/dL Note: This HDL assay may give artificially low results in patients with liver disease. Blood Venous blood specimen / Unknown 03/12/2025 12:56 PM EDT 03/12/2025 2:21 PM EDT [facility] LAB BLOOD ORDERABLES Marizol l Result Performing Organization Address City/[facility]/ZIP Co de Phone Number [facility] [address] [place] [address] [phone] * (ABNORMAL) Comprehensive Metabolic Panel (03/12/2025 12:56 PM EDT) Sodium 139 135 - 145 mmol/L [facility] Potassium 3.7 3.3 - 5.1 mmol/L [facility] Chloride 107 96 - 108 mmol/L [facility] Carbon Dioxide 25 22 - 29 mmol/L [facility] Anion Gap 11(L) 12 - 20 [facility] Urea Nitrogen (BUN) 11 9 - 16 mg/dL [facility] Creatinine, Serum 0.70 0.5 - 1.4 mg/dL [facility] Estimated Glomerular Filt Rate >60 [facility] Comment:Chronic Kidney Disea se: Estimated GFR < 60 mL/min/1.18g2Pijkcv Kidney Disease: Estimated GFR < 15 mL/min/1.73m2 Glucose 78 60 - 115 mg/dL [facility] Calcium 8.8 8.4 - 10.2 mg/dL [facility] Bilirubin, Total 0.4 0.0 - 1.0 mg/dL [facility] Aspartate Amino Transferase 25 5 - 31 U/L [facility] Alanine Aminotransferase 16 0 - 31 U/L [facility] Total Protein 6.8 6.5 - 8.0 g/dL [facility] Albumin Level 4.2 3.5 - 5.0 g/dL [facility] Alkaline Phosphatase 43 39 - 117 U/L [facility] Blood Venous blood specimen / Unknown 03/12/2025 12:56 PM EDT 03/12/2025 2:21 PM EDT [facility] LAB BLOOD ORDERABLES Marizol l Result [facility] [address] [place] [phone] * T-SPOT??.TB (02/23/2025 10:31 AM EDT) Pathologist [facility] T Spot TB Negative Negative [facility] Comment:A negative test resu lt [...] as aquantitative test. TS PANEL A 3 [facility] TS PANEL B 0 [facility] Negative Control Passed [facility] Positive Control Passed [facility] Comment:For additional infor emerald, please refer tohttp://education.OnHand/faq/YJG366(This link is being provided for informational/educational purposes only.)THIS TEST WAS PERFORMED AT:[employer] [id number] [place] [address]LUVLKIMCOLIN GALVAN MD,PHD 02/23/2025 10:3 1 AM EDT 02/23/2025 1:55 PM EDT Betsy Waldrop MD LAB BLOOD ORDERABLES Final Re sult Performing Organization Address [facility]/ZIP Co de Phone Number [facility] [address] [place] [phone] * TSH W/Reflex to FT4 (02/23/2025 10:31 AM EDT) TSH reflex Free T4 2.71 0.32 - 4.0 uIU/mL [facility] Blood Venous blood specimen / Unknown 02/23/2025 10:31 AM EDT 02/23/2025 1:55 PM EDT Betsy Waldrop MD LAB BLOOD ORDERABLES Final Re sult [facility] [address] [place] [phone] * Hepatitis C Antibody with Reflex to HCV, RNA, Quantitative, Real-Time PCR (05/26/2024 3:54 PM EST) Hepatitis C Antibody Nonreactive Nonreactive [facility] Comment:Antibodies to HCV no t detected; does not exclude early acuteHCV infection. Blood Venous blood specimen / Unknown 05/26/2024 3:54 PM EST 05/26/2024 3:54 PM EST us Betsy Waldrop MD LAB BLOOD ORDERABLES Final Re sult Performing Organization Address [facility] Co de Phone Number [facility] [address] [place] [phone] * HIV-1/2 Antigen and Antibodies, Fourth Generation, with Reflexes (05/26/2024 3:54 PM EST) Pathologist [facility] HIV AB/AG Nonreactive Nonreactive [facility] Comment:HIV-1 p24 Ag and/or HIV-1/HIV-2 Ab not detected.A test result that is nonreactive does not exclude thepossibility of exposure to or infection with HIV-1 and/orHIV-2. Nonreactive results in this assay for individualswith prior exposure to HIV-1 and/or HIV-2 may be due toantigen and antibody levels that are below the limit ofdetection of this assay.The ProtoGeoniKngroo HIV Ag/Ab Combo assay result andsupplemental assay results should be interpreted inconjunction with the patient's clinical presentation,history and other laboratory results. If the results areinconsistent with clinical evidence, additional testing issuggested to confirm the result. Blood Venous blood specimen / Unknown 05/26/2024 3:54 PM EST 05/26/2024 3:54 PM EST us Betsy Waldrop MD LAB BLOOD ORDERABLES Final Re sult Performing Organization Address [facility]/ZIP Co de Phone Number [facility] [address] [place] [phone] * Pap Smear (02/04/2024 12:00 AM EDT) SOURCE: SEE NOTE [facility] Comment:None given Report Status: [facility] Clinical Information: SEE NOTE [facility] Comment:None given LMP: SEE NOTE [facility] Comment:NONE GIVEN Prev. PAP: SEE NOTE [facility] Comment:NONE GIVEN Prev. BX: SEE NOTE [facility] Comment:NONE GIVEN Statement Of Adequacy: SEE NOTE [facility] Comment:Satisfactory for gavin luation.Endocervical/transformation zone componentpresent. General Categorization: [facility] Interpretation/Result: SEE NOTE [facility] Comment:Cytology Results: Ne gative for intraepitheliallesion or malignancy. Cytology Comment SEE NOTE [facility] Comment:This Pap test has be en evaluated with computerassisted technology. Materials Tech: SEE NOTE [facility] Comment:YP, CT(ASCP)CT scree jessica location: [address] [address] Review Materials Tech: SEE NOTE [facility] Comment:SL, CT(ASCP)CT scree jessica location: [place] [address] Pathologist [facility] PAP Infection [facility] See Note SEE [facility] Comment:EXPLANATORY NOTE:The Pap is a screening test for cervical cancer. It isnot a diagnostic test and is subject to false negativeand false positive results. It is most reliable when asatisfactory sample, regularly obtained, is submittedwith relevant clinical findings and history, and whenthe Pap result is evaluated along with historic andcurrent clinical information.THIS TEST WAS PERFORMED AT:[employer] [address] [address]AMEOHPERLA VALLE MD Pap Vial Vaginal structure / Unknown 02/04/2024 02/04/2024 Narrative [facility] - 02/07/2024 10:36 AM EDT SEE SCANNED RESULTS IN EMR us Betsy Waldrop MD LAB PATHOLOGY ORDERABLES Marizol l Result Performing Organization Address [facility] Co de Phone Number [facility] [address] [place] [phone] [phone] * HPV mRNA E6/E7 w/Reflex to HPV Genotypes 16, 18/45 (02/04/2024 12:00 AM EDT) HPV nRNA E6/E7 NOT DETECTED [facility] Comment:Methodology: Transcr iption-Mediated AmplificationThis assay detects E6/E7 viral messenger RNA (mRNA) from 14high-risk HPV types(16,18,31,33,35,39,45,51,52,56,58,59,66,68).Cervical sources are required for HPV testing.If a vaginal source from a patient who has had atotal hysterectomy with removal of cervix wassubmitted, please contact the testing laboratoryfor alternative testing options.For additional information, please refer tohttp://education.OnHand/faq/NZM549u1(This link if provided for information/educational purposes only.)THIS TEST PERFORMED AT:[employer] [address] [phone] DIRECTOR: PERLA VALLE MD HPV mRNA E6/E7 [facility] HPV 16 RNA [facility] HPV 18/45 RNA [facility] Vaginal Fluid Cervix uteri structure / Unknown 02/04/2024 02/04/2024 Narrative [facility] - 02/07/2024 10:36 AM EDT SEE SCANNED RESULTS IN EMRCollection Date: [id number] by: FIDE Carr: Cervix us Betsy Waldrop MD LAB CYTOLOGY ORDERABLES Final Result Performing Organization Address City/[facility]/ZIP Co de Phone Number [facility] [address] [place] [phone] from Last 3 Months or Most Recently Relevant to Health Maintenance [place] [address] [address] [place] [address] C3 Care Teams Animal Trapper Relationship Specialty Start Date End Date Betsy Waldrop MD [address] [place] [phone] PCP - General Family Medicine 08/30/22
--- OUTSIDE RECORDS SUMMARY | 2025-04-27 19:52 | XMS_ITS | Encounter Summary ---
Author Organization [employer] Address [address] [facility] 7t [place] [address] Care Team Providers Care Gunstock Repairer Name Role Phone Betsy Waldrop MD Primary Care Provider [phone] Reason for Visit * Reason Onset Date Comments Reschedule 12/17/2023 chart prep 12/17/2023 Encounter Details Date Type Department Care Team ([facility] st Contact Info) Description 12/17/2023 Telephone [facility] CHC MED & PEDS [address] [place] [address] Betsy Waldrop MD [address] [place] [address] Reschedule; chart prep Social History Tobacco Use [...] 12/16 PAP appointment. Please contact pt at [phone] documented in this encounter Plan of Treatment Not on file documented as of this encounter Visit Diagnoses Not on filedocumented in this encounter Additional Health Concerns Assessment Noted Time PHQ-9 Depression Total Score: 13 024 8:42 AM EDT documented as of this encounter Care Teams Gunstock Repairer Relationship Specialty Start Date End Date Betsy Waldrop MD [address] [place] [address] PCP - General Family Medicine 08/30/22 documented as of this encounter
--- OUTSIDE RECORDS SUMMARY | 2025-04-27 19:52 | XMS_ITS | Encounter Summary ---
Author Organization [email or web address] Address [address] [facility] 7t [place] [address] Care Team Providers Care Medical Oncologist Name Role Phone Betsy Waldrop MD Primary Care Provider [phone] Reason for Visit * Reason Comments Med Refill Encounter Details Date Type Department Care Team ([facility] st Contact Info) Description 04/27/2025 Refill [facility] CHC MED & PEDS [address] [place], [place] [phone] India Parsons CNP [address] [place] [address] Wheezing Social History Tobacco Use Types Packs/Day [...] as of this encounter Visit Diagnoses Diagnosis Wheezing documented in this encounter Additional Health Concerns Assessment Noted Time PHQ-9 Depression Total Score: 2 03/09/20 25 11:01 AM EDT documented as of this encounter Care Teams Medical Oncologist Relationship Specialty Start Date End Date Betsy Waldrop MD [address] [place] [address] PCP - General Family Medicine 08/30/22 documented as of this encounter
--- OUTSIDE RECORDS SUMMARY | 2025-04-27 19:52 | XMS_ITS | Encounter Summary ---
Author Organization [facility] Address [address] [place] [address] Care Team Providers Care Diesel Truck Driver Name Role Phone Max Arizmendi Primary Care Provider Tammy Naylor LPCA Unavailable [phone] Anusha Molina [facility] ATTENDANT Unavailable Rachele Ornelas FORGE UTILITY WORKER Unavailable [phone] Encounter Details Date Type Department Care Team (Late st Contact Info) Description 09/05/2020 Telephone [facility] Maternal Medicine [address] [address] Phoenix Gallardo MD [address] [place] [address] Social History Tobacco Use Types Packs/Day Years [...] on filedocumented in this encounter Care Teams Diesel Truck Driver Relationship Specialty Start Date End Date gUo Max [address] [place] [address] PCP - General 09/01/19 Tammy Naylor LPCA [address] [place] [address] Clinician Social Work 05/03/20 02/21/22 Anusha Molina APRN [address] [place] [address] Primary BH Attending Psychiatry, General 05/06/2002/22 Backer Rachele Lawrence LCSW [address] [place] [address] Sleeve Sewer Clinical Social Work 05/24/20 02/21/22 documented as of this encounter
--- OUTSIDE RECORDS SUMMARY | 2025-04-27 19:52 | XMS_ITS | Encounter Summary ---
Author Organization [facility] Address [address] [place] [address] Care Team Providers Care Drug Worker Name Role Phone Max Arizmendi Primary Care Provider Tammy Naylor LPCA Unavailable Anusha Molina SALES APPRENTICE Unavailable [phone] Rachele Ornelas NEEDLEWORKER Unavailable [phone] Encounter Details Date Type Department Care Team (Late st Contact Info) Description 09/07/[address] [place] [address] Dar Robison MD [address] [place], [place] [phone] Encounter for laboratory testing for COVID-19 virus [...] Date/Time Associated Diagnosis Comments COVID-19 (SARS-COV-2) - [facility] Routine 09/07/2020 11:45 AM EST Encounter for laboratory testing for COVID-19 virus [ICD-10-CM] documented in this encounter Results * COVID-19 (SARS-COV-2) ([facility]) (09/07/2020 11:45 AM EST) COVID-19 RT-PCR NOT-DETEC LEONARDO Not-Detec leonardo 09/08/2020 3:10 PM EST [facility] Comment:Interpretation: The viral RNA was not detected, making the COVID-19 diagnosis less likely. Clinical correlation is highly recommended.Final report signed by Leslie Carlson, Ph.D., Laboratory DirectorTests performed at [facility] Microbiology Nasopharyngeal swab / Unknown 09/07/2020 11:45 AM EST 09/07/2020 11:45 AM EST Narrative [facility] - 09/08/2020 3:10 PM EST Performed by [facility] [address] [place] [address], CLIA# [id number] and [place] License# [id number] us Dar Robison MD MICROBIOLOGY - GENERAL ORDER JIMMIE Final Result MERLIN ARAUZ documented in this encounter Visit Diagnoses Diagnosis Encounter for laboratory testing for COVID-19 virus documented in this encounter Care Teams Drug Worker Relationship Specialty Start Date End Date Max Arizmendi [address] [place] [address] PCP - General 09/01/19 Tammy Naylor LPCA [address] [place] [address] Clinician Social Work 05/03/20 02/21/22 Anusha Molina APRN [address] [place] [address] Primary BH Attending Psychiatry, General 05/06/2002/22 Rachele Ornelas LCSW [address] [place] [address] Supervisor Engine Repair Clinical Social Work 05/24/20 02/21/22 documented as of this encounter
--- OUTSIDE RECORDS SUMMARY | 2025-04-27 19:52 | XMS_ITS | Encounter Summary ---
Author Organization [employer] Address [address] [facility] [address] 7t [place] [address] Care Team Providers Care Chemical Cell Changer Name Role Phone Betsy Waldrop MD Primary Care Provider [phone] Reason for Visit * Reason Onset Date Comments Nurse Triage 04/23/2024 Encounter Details Date Type Department Care Team (Late st Contact Info) Description 04/23/2024 Telephone [facility] CHC MED & PEDS [address] [place], [place] [phone] Betsy Waldrop MD [address] [place] [address] Nurse Triage Social History Tobacco Use Types [...] the past 12 months, has t he [employer], gas, oil or water company threatened to [...] documented as of this encounter Care Teams Chemical Cell Changer Relationship Specialty Start Date End Date Betsy Waldrop MD [address] [place] [address] PCP - General Family Medicine 08/30/22 documented as of this encounter
--- OUTSIDE RECORDS SUMMARY | 2025-04-27 19:52 | XMS_ITS | Encounter Summary ---
Author Organization [facility] Address [address] [place] [address] Care Team Providers Care Machine Heddle Cleaner Name Role Phone Max Arizmendi Primary Care Provider [phone] Tammy Naylor LPCA Unavailable Anusha Molina KEYBOARD SPECIALIST Unavailable [phone] Rachele Ornelas ORTHO TECH Unavailable Encounter Details Date Type Department Care Team (Late st Contact Info) Description 10/27/2020 Prep for Surgery [facility] [address] [place] [address] Ashley Piña MD [facility] Womens Care [facility] [address] [facility] [address] [place] [address] Social History Tobacco Use Types Packs/Day Years [...] A/P d/w Dr. Bassem Piña MD PGY-3 [facility] COMPONENT ASSEMBLER SUPERVISOR (p) 10/27/20 12:01 PM Chief Complaint: [...] oz) M CS-LTranv LANI Comments: preeclampsia Past SHAPER AND PRESSER History: Denies history of abnormal pap smear [...] Lumbar/Sacral w/img; Surgeon: Rakesh Garvey MD; Location: [facility]; Service: Interventional Radiology Social History: Denies tobacco [...] tablet 3 ??? Blood Glucose Monitoring Suppl (ReviewZAP) w/Device Kit USE TO TEST BLOOD GLUCOSE [...] by mouth daily. 14 packet 1 ??? Aot-EkZxim-KZ-DHA ( MULTIVITAMIN PER STATE FORMULARY) tablet Take 1 tablet by mouth daily as directed. Dispense Brand per State Formulary. 30 tablet 11 ??? SUPPLY [facility] cradle. Length of need 6 [...] on filedocumented in this encounter Care Teams Machine Heddle Cleaner Relationship Specialty Start Date End Date Max Arizmendi [address] [place] [address] PCP - General 09/01/19 Tammy Naylor LPCA [address] [place] [address] Clinician Social Work 05/03/20 02/21/22 Anusha Molina APRN [address] [place] [address] Primary BH Attending Psychiatry, General 05/06/2002/22 Backer Rachele Lawrence LCSW [address] [place] [address] Batch Mixing Truck Driver Clinical Social Work 05/24/20 02/21/22 documented as of this encounter
--- OUTSIDE RECORDS SUMMARY | 2025-04-27 19:52 | XMS_ITS | Clinical Summary ---
Author Organization [facility] Address [address] [place] [address] Care Team Providers Care Crate Icer Name Role Phone Max Arizmendi Primary Care Provider Allergies Active Allergy Reactions Criticality Noted Date [...] empty stomach. 90 tablet 1 2 Active Gcj-OdRsho-ZN-DHA (Vitafol-One) 29-1-200 MG CapIndications:Esha haas is a [...] (09/30/2020): Added automatically from request for surgery [id number] Assessment & Plan (11/03/2020 10:48 AM EDT): [...] was recommended to per her provider at [facility] Assessment & Plan (08/30/2021 4:27 PM [...] past but not on meds since 2018. travel services professional referral placed. DF Assessment & Plan (04/27/2020 [...] (03/22/2018): Added automatically from request for surgery [id number] Assessment & Plan (04/27/2020 4:24 PM EDT): Patient reports history of herniated disk and sciatica. Will have anesthesia consult later in . Lumbar radiculopathy 03/19/2018 020 Overview (03/22/2018): Added automatically from request for surgery [id number] Immunizations Immunization Administration Dates Next Due Influenza [...] to Confirmation (09/29/2020 3:36 PM EDT) Pathologist [facility] HIV 1/2 Ag/Ab CMIA Nonreactive Nonreactive [facility]OSPITAL LAB Comment: Results show no evidence of infection by HIV 1/2. If clinically indicated, repeat CMIA or test by nucleic acid amplification. Performed at [facility], [place], [place] License 0385 CLIA [id number] Blood specimen (specimen) Blood specimen / Unknown 09/29/2020 3:36 PM EDT 09/29/2020 6:22 PM EDT us Audrey Luevano MD LAB BLOOD ORDERABLES Marizol l Result HOSPITAL LAB * Hepatitis C Virus (HCV) Antibody (04/08/2020 11:00 AM EDT) Pathologist [facility] Hepatitis C Antibody 0.15 0.00 - 0.79 S/CO ratio HOSPITAL LAB Hepatitis C Antibody Interpretation Nonreactive Nonreactive HOSPITAL LAB Comment:Performed at [facility], [place], [place] License 0385 CLIA [id number] Blood specimen (specimen) Heel structure / Unknown 04/08/2020 11:00 AM EDT 04/08/2020 12:32 PM EDT us Rachele Cheung MD LAB BLOOD ORDERABLES Final Result HOSPITAL LAB from Last 3 Months or Most Recently Relevant to Health Maintenance Insurance [facility] Advance Directives * Full [...] 6:42 PM 06/28/2019 5:12 PM Care Teams Crate Icer Relationship Specialty Start Date End Date Max Arizmendi [address] [place] [address] PCP - General 09/01/19
--- OUTSIDE RECORDS SUMMARY | 2025-04-27 19:52 | XMS_ITS | Clinical Summary ---
Author Organization [facility] Address [address] [place] [address] Care Team Providers Care Supplier Quality Name Role Phone Unavailable Primary Care Provider [...] with Friends and Family Never 09/10/2019 Attends Jew Services Never 09/09 Active Member of Clubs [...] this topic ObrienVeroniqueYani Personal/Family Self [address] [address] Obrien,Yani [facility] Self 1980 [address] [address]
--- OUTSIDE RECORDS SUMMARY | 2025-04-27 19:52 | XMS_ITS | Encounter Summary ---
Author Organization [facility] Address [address] [place] [address] Care Team Providers Care Lead Pressman [employer]oto [employer]ure Printing Name Role Phone UgoMax Primary Care Provider [phone] Reason for Visit * Reason Comments Medication Refill Encounter Details Date Type Department Care Team (Late st Contact Info) Description 07/19/2022 Refill [facility] [address] [facility] [address] [place] [address] Dolly Enamorado MD 85 [facility] [address] [place], [place] [phone] Primary hypothyroidism Social History Tobacco Use Types [...] hypothyroidism documented in this encounter Care Teams Lead Pressman [employer] Print[employer] Relationship Specialty Start Date End Date Max Arizmendi [address] [place] [address] PCP - General 09/01/19 documented as of this encounter
--- OUTSIDE RECORDS SUMMARY | 2025-04-27 19:52 | XMS_ITS | Clinical Summary ---
Author Organization [facility] Address [address] [place] [address] Care Team Providers Care Research Biologist Name Role Phone Unavailable Primary Care Provider [...]
--- OUTSIDE RECORDS SUMMARY | 2025-04-27 19:52 | XMS_ITS | Encounter Summary ---
Author Organization [employer] Address [address] [facility] 7t [place] [address] Care Team Providers Care Fusion Juncture Grinder Name Role Phone Betsy Waldrop MD Primary Care Provider [phone] Encounter Details Date Type Department Care Team (Late st Contact Info) Description 11/19/2024 Orders Only [facility] CHC MED & PEDS [address] [place], [place] [phone] Velia Hudson MD [address] [place] [address] Anemia, unspecified type (Primary Dx) Social History [...] the past 12 months, has t he [employer], gas, oil or water company threatened to [...] Diagnosis Comments CBC WITH AUTO DIFFERENTIAL Routine 04/27/2025 3:02 PM EDT Anemia, unspecified type TYPE AND SCREEN Routine 04/27/2025 3:02 PM EDT Anemia, unspecified type HEMOGLOBIN A1C Routine 04/27/2025 3:02 PM EDT Anemia, unspecified type VITAMIN B12 Routine 04/27/2025 3:02 PM EDT Anemia, unspecified type RETICULOCYTE COUNT Routine 11/24/2024 11 :23 AM EDT Anemia, unspecified type documented in this encounter Results * Vitamin B12 (04/27/2025 3:02 PM EDT) Vitamin B12 466 200 - 900 pg/mL [facility] Comment:NORMAL 200-900 PG/ML INDETERMINATE 160-199 PG/ML DEFICIENT < 160 PG/ML 04/27/2025 3:02 PM EDT 04/27/2025 3:17 PM EDT us Generic External Data Provider LAB BLOOD ORDERAB LES Final Result Performing Organization Address [facility] Co de Phone Number [facility] [address] [place] [address] [phone] * Type and screen (04/27/2025 3:02 PM EDT) Pathologist [facility] Blood Type BP [facility] Antibody Screen NEGATIVE [facility] 04/27/2025 3:02 PM EDT 04/27/2025 3:29 PM EDT Narrative [facility] - 04/27/2025 4:12 PM EDT Spec expiration changed by NISHANT on 04/27/25Reason: PAT SSSWITNESSED BY AGUSTIN.NURSING:Call Blood Bank (ext. [phone]) to band patient on admission.Type and Screen in effect until 2300 on 05/06/25 Generic External Data Provider LAB BLOOD BANK TE ST ORDERABLES Final Result Performing Organization Address City/[facility]/ZIP Co de Phone Number [facility] [address] [place] [address] [phone] * Hemoglobin A1c (04/27/2025 3:02 PM EDT) Hemoglobin A1c 4.8 <6.0 % [facility] Comment:Hemoglobin A1C Refer ence Range Adults: 4.8 - 6.0 % Non diabetic: < 6.0 % Goal: < 7.0 %Additional Action Suggested: > 8.0 %Note: Hemoglobin A1c results are invalid for patients with abnormal amounts of HbF. Blood transfusions may impact the HbA1c concentration in the patient sample. Estimated Average Glucose 91 mg/dL [facility] Comment:eAG = Estimated ave rage glucose which is %A1C expressed asaverage glucose, using the formula of the N3C-SjrbladMikyzyw Glucose study (ADAG), Diabetes Care, Vol.31,#8,Feb. 2007 04/27/2025 3:02 PM EDT 04/27/2025 3:17 PM EDT us Generic External Data Provider LAB BLOOD ORDERAB LES Final Result [facility] [address] [place] [address] [phone] * (ABNORMAL) CBC auto differential (04/27/2025 3:02 PM EDT) White Blood Count 5.0 4.8 - 10.8 X10*3/uL [facility] Red Blood Count 4.36 4.20 - 5.50 X10*6/uL [facility] Hemoglobin 10.5(L) 12.0 - 16.0 g/dl [facility] Hematocrit 34.1(L) 37.0 - 47.0 % [facility] Mean Corpuscular Volume 78.2(L) 80.0 - 98.0 fL [facility] Mean Corpuscular Hemoglobin 24.1(L) 27.0 - 33.0 pg [facility] Mean Corpuscular HGB Conc 30.8(L) 31.0 - 35.0 g/dl [facility] Red Cell Distribution Width 21.0(H) 11.0 - 16.0 % [facility] Platelet Count 184 160 - 400 X10*3/uL [facility] Mean Platelet Volume 10.0 9.4 - 12.3 fL [facility] Neutrophils Percent Auto 56.5 45 - 73 % [facility] Imm Gran Pct Auto 0.4 0.0 - 0.4 % [facility] Lymphocytes Percent Auto 31.1 20 - 40 % [facility] Monocytes Percent Auto 8.4 2 - 11 % [facility] Eosinophils Percent Auto 2.0 0 - 4 % [facility] Basophils Percent Auto 1.6 0 - 2 % [facility] NRBC Pct Auto 0.0 0.0 - 0.2 /100WBC [facility] Neutrophils Absolute Auto 2.8 2.0 - 8.3 x10*3/uL [facility] Imm Gran Abs Auto 0.02 0.00 - 0.03 X10*3/uL [facility] Lymphocytes Absolute Auto 1.6 1.2 - 4.9 X10*3/uL [facility] Monocytes Absolute Auto 0.4 0.1 - 1.2 X10*3/uL [facility] Eosinophils Absolute Auto 0.1 0.0 - 0.4 X10*3/uL [facility] Basophils Absolute Auto 0.1 0.0 - 0.2 X10*3/uL [facility] NRBC Abs Auto 0.000 0.0 - 0.012 X10*3/uL [facility] 04/27/2025 3:02 PM EDT 04/27/2025 3:17 PM EDT us Generic External Data Provider LAB BLOOD ORDERAB LES Final Result [facility] [address] [place], [place] [phone] * (ABNORMAL) Reticulocyte Count (11/24/2024 11:23 AM EDT) Reticulocytes Absolute 0.055 0.026 - 0.095 X10*6/uL [facility] Immature Retic Fraction 19.5(H) 3.0 - 15.9 % [facility] Retic HGB Equivalent 21.1(L) 30.0 - 35.0 pg [facility] Reticulocyte Percent 1.2 0.5 - 1.8 % [facility] Blood Venous blood specimen / Unknown 11/24/2024 11:23 AM EDT 11/24/2024 2:17 PM EDT us Velia Hudson MD LAB BLOOD ORDERABLES Final Result [facility] [address] [place] [address] [phone] documented in this encounter Visit Diagnoses Diagnosis Anemia, unspecified type- Primary documented in this encounter Additional Health Concerns Assessment Noted Time PHQ-9 Depression Total Score: 13 024 8:42 AM EDT documented as of this encounter Care Teams Fusion Juncture Grinder Relationship Specialty Start Date End Date Betsy Waldrop MD [address] [place] [address] PCP - General Family Medicine 08/30/22 documented as of this encounter
--- OUTSIDE RECORDS SUMMARY | 2025-04-27 19:52 | XMS_ITS | Encounter Summary ---
Author Organization [employer] Address [address] [facility] [address] [place] [address] Care Team Providers Care Siding Coreboard Inspector Name Role Phone Betsy Waldrop MD Primary Care Provider [phone] Encounter Details Date Type Department Care Team (Late st Contact Info) Description 09/26/2023 Telephone [facility] [address] [place] [address] Betsy Waldrop MD [address] [place] [address] Social History Tobacco Use Types Packs/Day Years [...] documented as of this encounter Care Teams Siding Coreboard Inspector Relationship Specialty Start Date End Date Betsy Waldrop MD [address] [place] [address] PCP - General Family Medicine 08/30/22 documented as of this encounter
--- OUTSIDE RECORDS SUMMARY | 2025-04-27 19:52 | XMS_ITS | Encounter Summary ---
Author Organization [employer] Address [address] [facility] [address]t [place] [address] Care Team Providers Care Stenotype Operator Name Role Phone Betsy Waldrop MD Primary Care Provider [phone] Encounter Details Date Type Department Care Team (Late st Contact Info) Description 12/04/2022 Abstract [facility] Information Management [address] [place] [address] Betsy Waldrop MD [address] [place] [address] Social History Tobacco Use Types Packs/Day Years [...] documented as of this encounter Care Teams Stenotype Operator Relationship Specialty Start Date End Date Betsy Waldrop MD [address] [place] [address] PCP - General Family Medicine 08/30/22 documented as of this encounter
== END 2025-04-27 14:46 | disposition home or self-care (01) ==
LOC: HO.LAB 14:45
PROVIDERS: Absent Provider Surgery; Visit Provider Physician Assistant Surgical
DX: K91.2 Postsurgical malabsorption, not elsewhere classified (principal); Z90.3 Acquired absence of stomach [part of]
CPT/HCPCS: 36415; 80053; 80061; 82306; 82607; 82728; 83036; 83525; 83540; 84425; 84443; 84590; 84630; 85025; 85610; 85730; 86140

== ENCOUNTER 2025-05-06 08:06 | Day surgery (SDC) | payer MEDICAID, SELFPAY ==
--- OUTSIDE RECORDS SUMMARY | 2025-03-18 17:12 | XMS_ITS | Encounter Summary ---
Author Organization Formerly [facility] Address [address] [place] [address] Care Team Providers Care Drill Sharpener Operator Name Role Phone Max Arizmendi Primary Care Provider Tammy Naylor LPCA Unavailable Anusha Molina RANCH HAND Unavailable Rachele Ornelas ENGINEERING INSPECTION ASSISTANT Unavailable [phone] Encounter Details Date Type Department Care Team (Late st Contact Info) Description 03/24/2020 [facility] 85 [facility] [address] [place] [phone] Dolly Enamorado MD [facility] [address] [place] [address] Hypothyroidism (acquired) (Primary Dx) Social History Tobacco [...] Performing Organization Information: Site ID: [id number] Name: [facility] Address: [address] [place] [address], [place] [address] Director: Deanne Mcdonough MD us Dolly Enamorado MD LAB BLOOD ORDERABLES Final R esult [facility] [address] [place] [address], [place] [address] * T4, Free (04/15/2020 2:52 PM EDT) T4, Free 1.3 0.8 - 1.8 ng/dL [facility] Blood specimen (specimen) Heel structure / Unknown 04/15/2020 2:52 PM EDT 04/15/2020 2:52 PM EDT Narrative [facility] - 04/16/2020 3:40 AM EDT FASTING:NO FASTING: NO Resulting Agency Comment Performing Organization Information: Site ID: [id number] Name: [facility] Address: [address] [place] [address], [facility] [place] [address] Director: Deanne Mcdonough MD Dolly Enamorado MD LAB BLOOD ORDERABLES Final R esult [facility] [address], [place] [address] documented in this encounter Visit Diagnoses Diagnosis Hypothyroidism (acquired)- Primary Unspecified hypothyroidism documented in this encounter Care Teams Drill Sharpener Operator Relationship Specialty Start Date End Date Max Arizmendi [address] [place] [address] PCP - General 09/01/19 Tammy Naylor LPCA [address] [place] [address] Clinician Social Work 05/03/20 02/21/22 Anusha Molina APRN [address] [place] [address] Primary BH Attending Psychiatry, General 05/06/2002/22 Backer Rachele Lawrence LCSW [address] [place] [address] Home Worker Clinical Social Work 05/24/20 02/21/22 documented as of this encounter
--- OUTSIDE RECORDS SUMMARY | 2025-03-18 17:12 | XMS_ITS | Encounter Summary ---
Author Organization [employer] Address [address] 7t [place] [address] Care Team Providers Care Remelt Pan Tank Operator Name Role Phone Betsy Waldrop MD Primary Care Provider [phone] Encounter Details Date Type Department Care Team (Late st Contact Info) Description 09/26/2023 Telephone [facility] MEDICINE [address] [place] [address] Betsy Waldrop MD [address] [place] [address] Social History Tobacco Use Types Packs/Day Years [...] one being able to take her to [facility]. * Telephone Encounter - Lorena Katz [...] documented as of this encounter Care Teams Remelt Pan Tank Operator Relationship Specialty Start Date End Date Betsy Waldrop MD [address] [place] [address] PCP - General Family Medicine 08/30/22 documented as of this encounter
--- OUTSIDE RECORDS SUMMARY | 2025-03-18 17:12 | XMS_ITS | Encounter Summary ---
Author Organization [facility] Address [address] [place] [address] Care Team Providers Care Pediatrics Hospitalist Name Role Phone Max Arizmendi Primary Care Provider [phone] Tammy Naylor LPCA Unavailable [phone] Anusha Molina NUTRITIONIST Unavailable [phone] Rachele Ornelas LIFT SUPERVISOR Unavailable Encounter Details Date Type Department Care Team (Late st Contact Info) Description 10/27/2020 Prep for Surgery [facility] [address] [place] [address] Ashley Piña MD [facility] [address] [facility] 200 [place] [address] Social History Tobacco Use Types Packs/Day Years [...] A/P d/w Dr. 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 Anxiety ??? Depressed ??? Disease of thyroid gland Past Surgical History: Past Surgical History: Procedure Laterality Date ??? SECTION ??? CHOLECYSTECTOMY ??? CT NJX DX/THER SBST INTRLMNR LMBR/SAC W/IMG GDN Right 03/22/2018 Procedure: IR Epidural Inject Steroid Lumbar/Sacral w/img; Surgeon: Rakesh Garvey MD; Location: [facility]; Service: Interventional Radiology Social History: Denies tobacco [...] tablet 3 ??? Blood Glucose Monitoring Suppl ([employer]) w/Device Kit USE TO TEST BLOOD GLUCOSE [...] by mouth daily. 14 packet 1 ??? Zye-IrYmow-WK-DHA ( MULTIVITAMIN PER STATE FORMULARY) tablet Take 1 tablet by mouth daily as directed. Dispense Brand per State Formulary. 30 tablet 11 ??? SUPPLY [facility] cradle. Length of need 6 [...] on filedocumented in this encounter Care Teams Pediatrics Hospitalist Relationship Specialty Start Date End Date Max Arizmendi [address] [place] [address] PCP - General 09/01/19 Tammy Naylor LPCA [address] [place] [address] Clinician Social Work 05/03/20 02/21/22 Anusha Molina APRN [address] [place] [address] Primary BH Attending Psychiatry, General 05/06/2002/22 Backer Rachele Lawrence LCSW [address] [place] [address] Needle Valve Operator Clinical Social Work 05/24/20 02/21/22 documented as of this encounter
--- OUTSIDE RECORDS SUMMARY | 2025-03-18 17:12 | XMS_ITS | Encounter Summary ---
Author Organization [employer] Address 75 [facility] 7t [place] [address] Care Team Providers Care Harbor Police Launch Commander Name Role Phone Betsy Waldrop MD Primary Care Provider [phone] Reason for Visit * Reason Onset Date Comments Reschedule 12/17/2023 chart prep 12/17/2023 Encounter Details Date Type Department Care Team ([facility] st Contact Info) Description 12/17/2023 Telephone [facility] CH[facility] MED & PEDS [address] [place] [address] Betsy Waldrop MD [address] [place] [address] Reschedule; chart prep Social History Tobacco Use [...] 12/16 PAP appointment. Please contact pt at [phone] documented in this encounter Plan of Treatment Not on file documented as of this encounter Visit Diagnoses Not on filedocumented in this encounter Additional Health Concerns Assessment Noted Time PHQ-9 Depression Total Score: 13 024 8:42 AM EDT documented as of this encounter Care Teams Harbor Police Launch Commander Relationship Specialty Start Date End Date Betsy Waldrop MD [address] [place] [address] PCP - General Family Medicine 08/30/22 documented as of this encounter
--- OUTSIDE RECORDS SUMMARY | 2025-03-18 17:12 | XMS_ITS | Clinical Summary ---
Author Organization Formerly [facility] Address [address] [place] [address] Care Team Providers Care Operating Theatre Technician Name Role Phone Max Arizmendi Primary Care Provider [phone] Allergies Active Allergy Reactions Criticality Noted Date [...] empty stomach. 90 tablet 1 2 Active Pox-WhQynj-DI-DHA (Vitafol-One) 29-1-200 MG CapIndications:Esha haas is a [...] (09/30/2020): Added automatically from request for surgery [id number] Assessment & Plan (11/03/2020 10:48 AM EDT): [...] was recommended to per her provider at [facility] Assessment & Plan (08/30/2021 4:27 PM [...] past but not on meds since 2018. volunteer services director referral placed. DF Assessment & Plan (04/27/2020 [...] (03/22/2018): Added automatically from request for surgery [id number] Assessment & Plan (04/27/2020 4:24 PM EDT): Patient reports history of herniated disk and sciatica. Will have anesthesia consult later in . Lumbar radiculopathy 03/19/2018 020 Overview (03/22/2018): Added automatically from request for surgery [id number] Immunizations Immunization Administration Dates Next Due Influenza [...] test by nucleic acid amplification. Performed at [facility], [place], [place] License 0385 CLIA [id number] Blood specimen (specimen) Blood specimen / Unknown 09/29/2020 3:36 PM EDT 09/29/2020 6:22 PM EDT us Audrey Luevano MD LAB BLOOD ORDERABLES Marizol l Result HOSPITAL LAB * Hepatitis C Virus (HCV) Antibody (04/08/2020 11:00 AM EDT) Pathologist [facility] Hepatitis C Antibody 0.15 0.00 - 0.79 S/CO ratio HOSPITAL LAB Hepatitis C Antibody Interpretation Nonreactive Nonreactive HOSPITAL LAB Comment:Performed at [facility], [place], [place] License 0385 CLIA [id number] Blood specimen (specimen) Heel structure / Unknown 04/08/2020 11:00 AM EDT 04/08/2020 12:32 PM EDT us Rachele Cheung MD LAB BLOOD ORDERABLES Final Result HOSPITAL LAB from Last 3 Months or Most Recently Relevant to Health Maintenance Insurance [facility] Advance Directives * [...] 6:42 PM 06/28/2019 5:12 PM Care Teams Operating Theatre Technician Relationship Specialty Start Date End Date Max Arizmendi [address] [place] [address] PCP - General 09/01/19
--- OUTSIDE RECORDS SUMMARY | 2025-03-18 17:12 | XMS_ITS | Encounter Summary ---
Author Organization [employer] Address 75 [facility] 7t [place] [address] Care Team Providers Care Hedis Registered Nurse Rn Name Role Phone Betsy Waldrop MD Primary Care Provider [phone] Encounter Details Date Type Department Care Team (Late st Contact Info) Description 11/19/2024 Orders Only [facility] CHC MED & PEDS [address] [place], [place] [phone] Velia Hudson MD 505 [place] [address] Anemia, unspecified type (Primary Dx) Social History [...] the past 12 months, has t he [employer], gas, oil or water company threatened to [...] Reticulocytes Absolute 0.055 0.026 - 0.095 X10*6/uL [facility] Immature Retic Fraction 19.5(H) 3.0 - 15.9 % [facility] Retic HGB Equivalent 21.1(L) 30.0 - 35.0 pg [facility] Reticulocyte Percent 1.2 0.5 - 1.8 % [facility] Blood Venous blood specimen / Unknown 11/24/2024 11:23 AM EDT 11/24/2024 2:17 PM EDT us Velia Hudson MD LAB BLOOD ORDERABLES Final Result [facility] [address] [place] [address] [phone] documented in this encounter Visit Diagnoses Diagnosis Anemia, unspecified type- Primary documented in this encounter Additional Health Concerns Assessment Noted Time PHQ-9 Depression Total Score: 13 024 8:42 AM EDT documented as of this encounter Care Teams Hedis Registered Nurse Rn Relationship Specialty Start Date End Date Betsy Waldrop MD [address] [place] [address] PCP - General Family Medicine 08/30/22 documented as of this encounter
--- OUTSIDE RECORDS SUMMARY | 2025-03-18 17:12 | XMS_ITS | Encounter Summary ---
Author Organization [employer] Address 75 [facility] 7t [place] [address] Care Team Providers Care Drill Runner Helper Name Role Phone Betsy Waldrop MD Primary Care Provider [phone] Encounter Details Date Type Department Care Team (Late st Contact Info) Description 12/04/2022 Abstract [facility] Information Management [address] [place] [address] Betsy Waldrop MD [address] [place] [address] Social History Tobacco Use Types Packs/Day Years [...] documented as of this encounter Care Teams Drill Runner Helper Relationship Specialty Start Date End Date Betsy Waldrop MD [address] [place] [address] PCP - General Family Medicine 08/30/22 documented as of this encounter
--- OUTSIDE RECORDS SUMMARY | 2025-03-18 17:12 | XMS_ITS | Encounter Summary ---
Author Organization [facility] Address [address] [place] [address] Care Team Providers Care Golf Technician Name Role Phone Max Arizmendi Primary Care Provider [phone] Tammy Naylor LPCA Unavailable [phone] Anusha Molina THINNER SPRAYER Unavailable [phone] Rachele Ornelas BRAND COORDINATOR Unavailable [phone] Encounter Details Date Type Department Care Team (Late st Contact Info) Description 09/07/[address] [place] [address] Dar Robison MD [address] [place], [place] [phone] Encounter for laboratory testing for COVID-19 virus [...] Date/Time Associated Diagnosis Comments COVID-19 (SARS-COV-2) - [facility] Routine 09/07/2020 11:45 AM EST Encounter for laboratory testing for COVID-19 virus [ICD-10-CM] documented in this encounter Results * COVID-19 (SARS-COV-2) ([facility]) (09/07/2020 11:45 AM EST) COVID-19 RT-PCR NOT-DETEC LEONARDO Not-Detec leonardo 09/08/2020 3:10 PM EST [facility] Comment:Interpretation: The viral RNA was not detected, making the COVID-19 diagnosis less likely. Clinical correlation is highly recommended.Final report signed by Leslie Carlson, Ph.D., Laboratory DirectorTests performed at [facility] Nasopharyngeal swab / Unknown 09/07/2020 11:45 AM EST 09/07/2020 11:45 AM EST Narrative [facility] - 09/08/2020 3:10 PM EST Performed by [facility] [address] [place] [address], CLIA# [id number] and [place] License# [id number] us Dar Robison MD MICROBIOLOGY - GENERAL ORDER JIMMIE Final Result [facility] documented in this encounter Visit Diagnoses Diagnosis Encounter for laboratory testing for COVID-19 virus documented in this encounter Care Teams Golf Technician Relationship Specialty Start Date End Date Max Arizmendi [address] [place] [address] PCP - General 09/01/19 Tammy Naylor LPCA [address] [place] [address] Clinician Social Work 05/03/20 02/21/22 Anusha Molina APRN [address] [place] [address] Primary BH Attending Psychiatry, General 05/06/2002/22 Rachele Ornelas LCSW [address] [place] [address] Truck Rental Clerk Clinical Social Work 05/24/20 02/21/22 documented as of this encounter
--- OUTSIDE RECORDS SUMMARY | 2025-03-18 17:12 | XMS_ITS | Encounter Summary ---
Author Organization [facility] Address [address] [place] [address] Care Team Providers Care Waiter/Waitress Cafeteria Name Role Phone UgoMax Primary Care Provider [phone] Reason for Visit * Reason Comments Medication Refill Encounter Details Date Type Department Care Team (Late st Contact Info) Description 07/19/2022 [facility] 85 [facility] 7[address] [place] [address] Dolly Enamorado MD 85 [facility] [address] [place], [place] [phone] Primary hypothyroidism Social History Tobacco Use Types [...] hypothyroidism documented in this encounter Care Teams Waiter/Waitress Cafeteria Relationship Specialty Start Date End Date Max Arizmendi [address] [place] [address] PCP - General 09/01/19 documented as of this encounter
--- OUTSIDE RECORDS SUMMARY | 2025-03-18 17:12 | XMS_ITS | Encounter Summary ---
Author Organization Formerly [facility] Address [address] [place] [address] Care Team Providers Care City Letter Carrier Name Role Phone Max Arizmendi Primary Care Provider [phone] Tammy Naylor LPCA Unavailable Anusha Molina MARKETING INTERN Unavailable Rachele Ornelas FLAT SCREEN WORKER Unavailable Reason for Visit * Reason Comments Medication Refill Encounter Details Date Type Department Care Team (Late st Contact Info) Description 02/21/2021 [facility] 85 [facility] [address] [place] [address] Dolly Enamorado MD 85 [facility] [address] [place], [place] [phone] Diet controlled gestational diabetes mellitus (GDM) in [...] trimester documented in this encounter Care Teams City Letter Carrier Relationship Specialty Start Date End Date Max Arizmendi [address] [place] [phone] PCP - General 09/01/19 Tammy Naylor LPCA [address] [place] [address] Clinician Social Work 05/03/20 02/21/22 Anusha Molina APRN [address] [place] [address] Primary BH Attending Psychiatry, General 05/06/2002/22 Backer Rachele Lawrence LCSW [address] [place] [address] Pump Operator Byproducts Clinical Social Work 05/24/20 02/21/22 documented as of this encounter
--- OUTSIDE RECORDS SUMMARY | 2025-03-18 17:12 | XMS_ITS | Encounter Summary ---
Author Organization [employer] Address [address] [facility] [address] 7t [place] [address] Care Team Providers Care Interventional Tech Name Role Phone Betsy Waldrop MD Primary Care Provider [phone] Reason for Visit * Reason Onset Date Comments Nurse Triage 04/23/2024 Encounter Details Date Type Department Care Team (Late st Contact Info) Description 04/23/2024 Telephone [facility] CHC MED & PEDS [address] [place], [place] [phone] Betsy Waldrop MD [address] [place] [address] Nurse Triage Social History Tobacco Use Types [...] the past 12 months, has t he [employer] gas, oil or water company threatened to [...] documented as of this encounter Care Teams Interventional Tech Relationship Specialty Start Date End Date Betsy Waldrop MD [address] [place] [address] PCP - General Family Medicine 08/30/22 documented as of this encounter
--- OUTSIDE RECORDS SUMMARY | 2025-03-18 17:12 | XMS_ITS | Encounter Summary ---
Author Organization [facility] Address [address] [place] [address] Care Team Providers Care Apartment Rental Agent Name Role Phone Max Arizmendi Primary Care Provider [phone] Tammy Naylor LPCA Unavailable [phone] Anusha Molina INFORMATION SYSTEMS ARCHITECT Unavailable [phone] Rachele Ornelas BUILDING SERVICE WORKER Unavailable Encounter Details Date Type Department Care Team (Late st Contact Info) Description 11/25/2020 Scanned Document [facility] [address] [place] [phone] Josie Bingham MD [address] [place] [address] Social History Tobacco Use Types Packs/Day Years [...] on filedocumented in this encounter Care Teams Apartment Rental Agent Relationship Specialty Start Date End Date Ugo Destinycheng [address] [place] [address] PCP - General 09/01/19 Tammy Naylor LPCA [address] [place] [address] Clinician Social Work 05/03/20 02/21/22 Anusha Molina APRN [address] [place] [address] Primary BH Attending Psychiatry, General 05/06/2002/22 Rachele Ornelas LCSW [address] [place] [address] Food Quality Tester Clinical Social Work 05/24/20 02/21/22 documented as of this encounter
--- OUTSIDE RECORDS SUMMARY | 2025-03-18 17:12 | XMS_ITS | Encounter Summary ---
Author Organization [facility] Address [address] [place] [address] Care Team Providers Care Fast Brim Pouncer Name Role Phone Max Arizmendi Primary Care Provider Tammy Naylor LPCA Unavailable Anusha Molina MANAGER GALLERY Unavailable Rachele Ornelas OPERATOR MAINTAINER Unavailable Reason for Visit * Reason Comments Medication Refill Encounter Details Date Type Department Care Team (Late st Contact Info) Description 12/07/2020 Refill [facility] [address] [place] [address] Josie Bingham MD [address] [place], [place] [phone] History of 2 sections Social History Tobacco [...] sections documented in this encounter Care Teams Fast Brim Pouncer Relationship Specialty Start Date End Date Max Arizmendi [address] [place] [address] PCP - General 09/01/19 Tammy Naylor LPCA [address] [place] [address] Clinician Social Work 05/03/20 02/21/22 Anusha Molina APRN [address] [place] [address] Primary BH Attending Psychiatry, General 05/06/2002/22 BackRachele Coley LCSW [address] [place] [address] Enrobing Machine Corder Clinical Social Work 05/24/20 02/21/22 documented as of this encounter
--- OUTSIDE RECORDS SUMMARY | 2025-03-18 17:12 | XMS_ITS | Encounter Summary ---
Author Organization [facility] Address [address] [place] [address] Care Team Providers Care Geographic Information Systems Director Name Role Phone Max Arizmendi Primary Care Provider Tammy Naylor LPCA Unavailable Anusha Molina CORNICE MAKER Unavailable Rachele Ornelas HOPS FARMWORKER Unavailable Encounter Details Date Type Department Care Team (Late st Contact Info) Description 09/05/2020 Telephone [facility]aternal Medicine [address] [address] Phoenix Gallardo MD [address] [place] [address] Social History Tobacco Use Types Packs/Day Years [...] on filedocumented in this encounter Care Teams Geographic Information Systems Director Relationship Specialty Start Date End Date Ugo Max [address] [place] [address] PCP - General 09/01/19 Tammy Naylor LPCA [address] [place] [address] Clinician Social Work 05/03/20 02/21/22 Anusha Molina APRN [address] [place] [address] Primary BH Attending Psychiatry, General 05/06/2002/22 Backer Rachele Lawrence LCSW [address] [place] [address] Analog Circuit Designer Clinical Social Work 05/24/20 02/21/22 documented as of this encounter
--- OUTSIDE RECORDS SUMMARY | 2025-03-18 17:12 | XMS_ITS | Clinical Summary ---
Author Organization [facility] Address [address] [place] [address] Care Team Providers Care Senior Project Manager Name Role Phone Unavailable Primary Care Provider [...] with Friends and Family Never 09/10/2019 Attends Mosque Services Never 09/09 Active Member of Clubs [...] this topic ObrienVeroniqueYani Personal/Family Self 1980 [address] [address] Obrien,Yani Behavior[facility] Self 1980 [address] [facility] [address] [address]
--- OUTSIDE RECORDS SUMMARY | 2025-03-18 17:12 | XMS_ITS | Encounter Summary ---
Author Organization [facility] Address [address] [place] [address] Care Team Providers Care Rover Tender Name Role Phone Max Arizmendi Primary Care Provider Tammy Naylor LPCA Unavailable [phone] Anusha Molina CUSTOMER SERVICE ADVOCATE Unavailable Rachele Ornelas MILLWRIGHT APPRENTICE Unavailable Encounter Details Date Type Department Care Team (Late st Contact Info) Description 11/21/2020 Scanned Document [facility] [address] [place] [phone] Rachele Cheung MD [address] [place] [address] Social History Tobacco Use Types Packs/Day Years [...] on filedocumented in this encounter Care Teams Rover Tender Relationship Specialty Start Date End Date Ugo Destinycheng [address] [place] [address] PCP - General 09/01/19 Tammy Naylor LPCA [address] [place] [address] Clinician Social Work 05/03/20 02/21/22 Anusha Molina APRN [address] [place] [address] Primary BH Attending Psychiatry, General 05/06/2002/22 Rachele Ornelas LCSW [address] [place] [address] Certified Credit Counselor Clinical Social Work 05/24/20 02/21/22 documented as of this encounter
--- OUTSIDE RECORDS SUMMARY | 2025-03-18 17:12 | XMS_ITS | Clinical Summary ---
Author Organization [employer] Address [address] [place] [address] Care Team Providers Care Mumps Developer Name Role Phone Betsy Waldrop MD Primary Care Provider [phone] Allergies Active Allergy Reactions Criticality Noted Date [...] intervention , Patient to reach out to [facility] team as needed, Patient to [...] Center 10/10/2023 3:15 PM Betsy Waldrop MD [facility] Insomnia due to other mental disorder [...] recommended reduction of 20-30% of maintenance calories; rig builder helper referral offered. Recommended to decrease soda and [...] (08/30/2022): Added automatically from request for surgery [id number] Last Assessment & Plan: Continue diet control. Patient did not bring meter or log today. Seen by nutrition Gestational thrombocytopenia 09/01/2020 10/04/2022 Overview (10/03/2022): Plts 144 on 09/01/20 Needs repeat CBC next visit (10/06/20) Last Assessment & Plan: Plt 158 at last visit 10/27/20 Encounters Date Type Department Care Team Description 03/09/2025 10:45 AM EDT Office Visit [facility] [address] [place] [address] India Parsons CNP Encounter for screening for malignant neoplasm of colon (Primary Dx); Encounter for physical examination; Acquired hypothyroidism; Iron deficiency anemia due to chronic blood loss; Polyarthralgia; Sinus congestion; Positive NORRIS (antinuclear antibody); Menorrhagia with regular cycle; Wheezing 03/09/2025 Travel 03/08/2025 Travel 03/05/2025 Telephone [facility] [address] [place] [address] Betsy Waldrop MD chart prep 03/01/2025 Patient Outreach [facility] [address] [place] [address] Betsy Waldrop MD Pre-visit Planning (SDOH negative, Tobacco screening positive. ) 02/18/[address] [address] Betsy Waldrop MD Lab Orders 02/16/2025 Telephone [facility] [address] [place] [address] Betsy Waldrop MD Appointment Request 12/31/[address] [address] Betsy Waldrop MD No Show 12/29/2024 Telephone [facility] [address] [place] [address] Betsy Waldrop MD chart prep 12/18/2024 3:15 PM EDT Telemedicine [facility] [address] [place] [address] Betsy Waldrop MD Acquired hypothyroidism (Primary Dx); Iron deficiency anemia due to chronic blood loss; Infertility counseling; TSH (thyroid-stimulating hormone deficiency); Encounter for screening mammogram for malignant neoplasm of breast 12/18/2024 Travel 12/17/2024 Telephone [facility] [address] [place] [address] Betsy Waldrop MD chart prep from Last [...] 1978 FIT 1978 FOBT 1978 Sigmoidoscopy 1978 Mammogram 2018 COVID-19 Vaccine ( season) 2025 Postponed from 03/08/2025 (Supply/Drug Shortage) Alcohol/Substance Use Screening 04/27/2025 04/27/2024 Disability Screening 10/28/2025 10/28/2024 Influenza Vaccine (#1) 2026 , 05/25/2020, 07/14/2019, Additional history exists Postponed from 03/08/2025 (Supply/Drug Shortage) SDOH Screening 03/01/2026 03/01/2025 Depression Screening 03/09/2026 03/09/2025, 03/09/20 Family Planning (PISQ) 03/09/2026 03/09/2025 Tobacco Screening 03/09/2026 03/09/2025 Zoster Vaccines (1 of 2) 02/06/2028 Cervical Cancer Screening 02/03/2029 HPV/Cotest 02/03/2029 02/04/2024 Pap Smear 02/03/2029 02/04/2024 Lipid Panel 03/12/2030 03/12/2025, 0607/2023, 11/08/2022, Additional history exists DTaP/Tdap/Td Vaccines (3 - Td or Tdap) [...] patient's age to complete this topic Hepatitis B Vaccines Discontinued IPV Vaccines Aged Out No longer eligi [...] Procedure Name Priority Date/Time Associated Diagnosis Comments COMPREHENSIVE METABOLIC PANEL Routine 03/12/2025 12:56 PM EDT Encounter for physical examination CBC WITH AUTO DIFFERENTIAL Routine 03/12/2025 12:56 PM EDT Encounter for physical examination HEPATITIS B SURFACE ANTIGEN, EIA Routine 03/12/2025 12:56 PM EDT Encounter for physical examination HEPATITIS B CORE AB TOTAL Routine 03/12/2025 12:56 PM EDT Encounter for physical examination HEPATITIS B SURFACE ANTIBODY, QUALITATIVE Routine 03/12/2025 12:56 PM EDT Encounter for physical examination LIPID PANEL, STANDARD Routine 03/12/2025 12:56 PM EDT Encounter for physical examination T-SPOT(R).TB Routine 02/23/2025 10:31 AM EDT Routine general medical examination at a [facility] facility TSH W/REFLEX TO FT4 Routine 02/23/2025 [...] 02/04/2024 12:00 AM EDT Cervical cancer screening from Last 3 Months or Most Recently Relevant to Health Maintenance Results * (ABNORMAL) CBC auto differential (03/12/2025 12:56 PM EDT) White Blood Count 4.9 4.8 - 10.8 X10*3/uL [facility] Red Blood Count 4.47 4.20 - 5.50 X10*6/uL [facility] Hemoglobin 9.7(L) 12.0 - 16.0 g/dl [facility] Hematocrit 32.7(L) 37.0 - 47.0 % [facility] Mean Corpuscular Volume 73.2(L) 80.0 - 98.0 fL [facility] Mean Corpuscular Hemoglobin 21.7(L) 27.0 - 33.0 pg [facility] Mean Corpuscular HGB Conc 29.7(L) 31.0 - 35.0 g/dl [facility] Red Cell Distribution Width 18.0(H) 11.0 - 16.0 % [facility] Platelet Count 176 160 - 400 X10*3/uL [facility] Mean Platelet Volume 10.3 9.4 - 12.3 fL [facility] Neutrophils Percent Auto 53.3 45 - 73 % [facility] Imm Gran Pct Auto 0.2 0.0 - 0.4 % [facility] Lymphocytes Percent Auto 36.3 20 - 40 % [facility] Monocytes Percent Auto 7.4 2 - 11 % [facility] Eosinophils Percent Auto 1.6 0 - 4 % [facility] Basophils Percent Auto 1.2 0 - 2 % [facility] NRBC Pct Auto 0.0 0.0 - 0.2 /100WBC [facility] Neutrophils Absolute Auto 2.6 2.0 - 8.3 x10*3/uL [facility] Imm Gran Abs Auto 0.01 0.00 - 0.03 X10*3/uL [facility] Lymphocytes Absolute Auto 1.8 1.2 - 4.9 X10*3/uL [facility] Monocytes Absolute Auto 0.4 0.1 - 1.2 X10*3/uL [facility] Eosinophils Absolute Auto 0.1 0.0 - 0.4 X10*3/uL [facility] Basophils Absolute Auto 0.1 0.0 - 0.2 X10*3/uL [facility] NRBC Abs Auto 0.000 0.0 - 0.012 X10*3/uL [facility] Blood Venous blood specimen / Unknown 03/12/2025 12:56 PM EDT 03/12/2025 2:21 PM EDT [facility] LAB BLOOD ORDERABLES Marizol l Result [facility] [address] [place] [phone] * Hepatitis B surface antigen, EIA (03/12/2025 12:56 PM EDT) Hepatitis B Surface Ag Negative Negative [facility] Blood Venous blood specimen / Unknown 03/12/2025 12:56 PM EDT 03/12/2025 2:21 PM EDT [facility] LAB BLOOD ORDERABLES Marizol l Result Performing Organization Address City/[facility]/ZIP Co de Phone Number [facility] [address] [place] [address] [phone] * Hepatitis B Core Antibody, Total (03/12/2025 12:56 PM EDT) Pathologist [facility] [place] Hepatitis B Core Antibody Nonreactive Nonreactive [facility] Blood Venous blood specimen / Unknown 03/12/2025 12:56 PM EDT 03/12/2025 2:21 PM EDT [facility] LAB BLOOD ORDERABLES Marizol l Result Performing Organization Address [facility] Co de Phone Number [facility] [address] [place] [address] [phone] * Hepatitis B Surface Antibody, Qualitative (03/12/2025 12:56 PM EDT) Pathologist [facility] [place] ~Hepatitis B Surface Antibody REACTIVE Nonreactive [facility] Comment:REACTIVE: > 11.99 mI U/mL Blood Venous blood specimen / Unknown 03/12/2025 12:56 PM EDT 03/12/2025 2:21 PM EDT [facility] LAB BLOOD ORDERABLES Marizol l Result Performing Organization Address [facility] Co de Phone Number [facility] [address] [place] [address] [phone] * Lipid Panel, Standard (03/12/2025 12:56 PM EDT) Pathologist [facility] [place] Triglycerides 32 <150 mg/dL [facility] Comment:Desirable Triglyceri de: less than 150 mg/dLBorderline High Triglyceride 150-199 mg/dLHigh Triglyceride: 200-499 mg/dLVery High Triglyceride: greater than or equal to 5OO mg/dL Cholesterol 156 <200 mg/dL [facility] Comment:Desirable Cholestero l: less than 200 mg/dLBorderline High Cholesterol: 200-239 mg/dLHigh Cholesterol: greater than 239 mg/dL LDL Cholesterol Calculated 87 <100 mg/dL [facility] Comment:Desirable LDL: less than 100 mg/dLNear Optimal/Above Optimal LDL: 110- 129 mg/dLBorderline High LDL: 130-159 mg/dLHigh LDL: 160-189 mg/dLVery High LDL: greater than or equal to 190 mg/dL HDL Cholesterol 63 >40 mg/dL [facility] Comment:Desirable HDL: great er than 40 mg/dL Note: This HDL assay may give artificially low results in patients with liver disease. Blood Venous blood specimen / Unknown 03/12/2025 12:56 PM EDT 03/12/2025 2:21 PM EDT [facility] LAB BLOOD ORDERABLES Marizol l Result [facility] [address] [place] [address] [phone] * (ABNORMAL) Comprehensive Metabolic Panel (03/12/2025 12:56 PM EDT) Sodium 139 135 - 145 mmol/L [facility] Potassium 3.7 3.3 - 5.1 mmol/L [facility] Chloride 107 96 - 108 mmol/L [facility] Carbon Dioxide 25 22 - 29 mmol/L [facility] Anion Gap 11(L) 12 - 20 [facility] Urea Nitrogen (BUN) 11 9 - 16 mg/dL [facility] Creatinine, Serum 0.70 0.5 - 1.4 mg/dL [facility] Estimated Glomerular Filt Rate >60 [facility] Comment:Chronic Kidney Disea se: Estimated GFR < 60 mL/min/1.88e6Hipioy Kidney Disease: Estimated GFR < 15 mL/min/1.73m2 Glucose 78 60 - 115 mg/dL [facility] Calcium 8.8 8.4 - 10.2 mg/dL [facility] Bilirubin, Total 0.4 0.0 - 1.0 mg/dL [facility] Aspartate Amino Transferase 25 5 - 31 U/L [facility] Alanine Aminotransferase 16 0 - 31 U/L [facility] Total Protein 6.8 6.5 - 8.0 g/dL [facility] Albumin Level 4.2 3.5 - 5.0 g/dL [facility] Alkaline Phosphatase 43 39 - 117 U/L [facility] Blood Venous blood specimen / Unknown 03/12/2025 12:56 PM EDT 03/12/2025 2:21 PM EDT [facility] LAB BLOOD ORDERABLES Marizol l Result [facility] [address] [place] [address] [phone] * T-SPOT??.TB (02/23/2025 10:31 AM EDT) Pathologist [facility] [place] T Spot TB Negative Negative [facility] Comment:A negative test resu lt does [...] as aquantitative test. TS PANEL A 3 [facility] TS PANEL B 0 [facility] Negative Control Passed [facility] Positive Control Passed [facility] Comment:For additional infor emerald, please refer [email or web address].[employer]/faq/IVO543(This link is being provided for informational/educational purposes only.)THIS TEST WAS PERFORMED AT:[employer] [id number] [place] [address]JTIJVFECOLIN GALVAN MD,PHD 02/23/2025 10:3 1 AM EDT 02/23/2025 1:55 PM EDT Betsy Waldrop MD LAB BLOOD ORDERABLES Final Re sult Performing Organization Address [facility]/ZIP Co de Phone Number [facility] [address] [place] [phone] * TSH W/Reflex to FT4 (02/23/2025 10:31 AM EDT) TSH reflex Free T4 2.71 0.32 - 4.0 uIU/mL [facility] Blood Venous blood specimen / Unknown 02/23/2025 10:31 AM EDT 02/23/2025 1:55 PM EDT Betsy Waldrop MD LAB BLOOD ORDERABLES Final Re sult Performing Organization Address [facility] Co de Phone Number [facility] [address] [place] [phone] * Hepatitis C Antibody with Reflex to HCV, RNA, Quantitative, Real-Time PCR (05/26/2024 3:54 PM EST) Hepatitis C Antibody Nonreactive Nonreactive [facility] Comment:Antibodies to HCV no t detected; does not exclude early acuteHCV infection. Blood Venous blood specimen / Unknown 05/26/2024 3:54 PM EST 05/26/2024 3:54 PM EST Betsy Waldrop MD LAB BLOOD ORDERABLES Final Re sult Performing Organization Address [facility] Co de Phone Number [facility] [address] [place] [phone] * HIV-1/2 Antigen and Antibodies, Fourth Generation, with Reflexes (05/26/2024 3:54 PM EST) HIV AB/AG Nonreactive Nonreactive [facility] Comment:HIV-1 p24 Ag and/or HIV-1/HIV-2 Ab not detected.A test result that is nonreactive does not exclude thepossibility of exposure to or infection with HIV-1 and/orHIV-2. Nonreactive results in this assay for individualswith prior exposure to HIV-1 and/or HIV-2 may be due toantigen and antibody levels that are below the limit ofdetection of this assay.The [employer] HIV Ag/Ab Combo assay result andsupplemental assay results should be interpreted inconjunction with the patient's clinical presentation,history and other laboratory results. If the results areinconsistent with clinical evidence, additional testing issuggested to confirm the result. Blood Venous blood specimen / Unknown 05/26/2024 3:54 PM EST 05/26/2024 3:54 PM EST us Betsy Waldrop MD LAB BLOOD ORDERABLES Final Re sult [facility] [address] [place] [phone] * Pap Smear (02/04/2024 12:00 AM EDT) SOURCE: SEE NOTE [facility] Comment:None given Report Status: [facility] Clinical Information: SEE NOTE [facility] Comment:None given LMP: SEE NOTE [facility] Comment:NONE GIVEN Prev. PAP: SEE NOTE [facility] Comment:NONE GIVEN Prev. BX: SEE NOTE [facility] Comment:NONE GIVEN Statement Of Adequacy: SEE NOTE [facility] Comment:Satisfactory for gavin luation.Endocervical/transformation zone componentpresent. General Categorization: [facility] Interpretation/Result: SEE NOTE [facility] Comment:Cytology Results: Ne gative for intraepitheliallesion or malignancy. Cytology Comment SEE NOTE [facility] Comment:This Pap test has be en evaluated with computerassisted technology. Washing Machine Striper: SEE NOTE [facility] Comment:YP, CT(ASCP)CT scree jessica location: [address] [address] Review Washing Machine Striper: SEE NOTE [facility] Comment:SL, CT(ASCP)CT scree jessica location: [address] [address] Pathologist TNP [facility] See Note SEE NOTE [facility] Comment:EXPLANATORY NOTE:The Pap is a screening test for cervical cancer. It isnot a diagnostic test and is subject to false negativeand false positive results. It is most reliable when asatisfactory sample, regularly obtained, is submittedwith relevant clinical findings and history, and whenthe Pap result is evaluated along with historic andcurrent clinical information.THIS TEST WAS PERFORMED AT:[facility] [address] [id number] VALLE MD Pap Vial Vaginal structure / Unknown 02/04/2024 02/04/2024 Narrative [facility] - 02/07/2024 10:36 AM EDT SEE SCANNED RESULTS IN EMR us Betsy Waldrop MD LAB PATHOLOGY ORDERABLES Marizol l Result [facility] [address] [place] [phone] [phone] * HPV mRNA E6/E7 w/Reflex to HPV Genotypes 16, 18/45 (02/04/2024 12:00 AM EDT) HPV nRNA E6/E7 NOT DETECTED [facility] Comment:Methodology: Transcr iption-Mediated AmplificationThis assay detects E6/E7 viral messenger RNA (mRNA) from 14high-risk HPV types(16,18,31,33,35,39,45,51,52,56,58,59,66,68).Cervical sources are required for HPV testing.If a vaginal source from a patient who has had atotal hysterectomy with removal of cervix wassubmitted, please contact the testing laboratoryfor alternative testing options.For additional information, please refer tohttp://education.[employer]/faq/RKQ805b5(This link if provided for information/educational purposes only.)THIS TEST PERFORMED AT:[employer] [address] [phone] DIRECTOR: PERAL VALLE MD HPV mRNA E6/E7 [facility] HPV 16 RNA [facility] HPV 18/45 RNA [facility] Vaginal Fluid Cervix uteri structure / Unknown 02/04/2024 02/04/2024 Narrative [facility] - 02/07/2024 10:36 AM EDT SEE SCANNED RESULTS IN EMRCollection Date: [id number] by: FIDE Carr: Cervix Betsy Waldrop MD LAB CYTOLOGY ORDERABLES Final Result [facility] [address] [place] [address] [phone] from Last 3 Months or Most Recently Relevant to Health Maintenance [place] [address] [place] [address] C3 Care Teams Mumps Developer Relationship Specialty Start Date End Date Betsy Waldrop MD [address] [place] [phone] PCP - General Family Medicine 08/30/22
--- OUTSIDE RECORDS SUMMARY | 2025-03-18 17:12 | XMS_ITS | Encounter Summary ---
Author Organization [facility] Address [address] [place] [address] Care Team Providers Care Content Assistant Name Role Phone Max Arizmendi Primary Care Provider [phone] Tammy Naylor LPCA Unavailable Anusha Molina CLOTHING PATTERNMAKER Unavailable [phone] Rachele Ornelas MEDICAL LAB DIRECTOR Unavailable Encounter Details Date Type Department Care Team (Late st Contact Info) Description 09/29/2020 Prep for Surgery [facility] [address] [place] [phone] Lori Lau MD [address] [place] [address] Diet controlled gestational diabetes mellitus (GDM) in [...] Primary documented in this encounter Care Teams Content Assistant Relationship Specialty Start Date End Date Max Arizmendi [address] [place] [address] PCP - General 09/01/19 Tammy Naylor LPCA [address] [place] [address] Clinician Social Work 05/03/20 02/21/22 Anusha Molina APRN [address] [place] [address] Primary Attending Psychiatry, General 05/06/2002/22 Rachele Ornelas LCSW [address] [place] [address] Connie Scratcher Clinical Social Work 05/24/20 02/21/22 documented as of this encounter
[2025-04-23 12:22] VITALS: BMI 23.4
--- NOTE | 2025-05-03 15:00 | P.CONAN_ITS ---
Documented by User: Aissatou Mendoza NP 05/03/25 15:01 HPI - Anesthesia Eval Consult details Narrative: 45yo F for Panniculectomy s/p gastric sleeve 2022 [facility] Active Problems Active Problems: All Active Problems Postgastrectomy malabsorption (Acute) Anemia (Acute) Iron deficiency (Acute) Excess skin (Acute) Overweight (BMI 25.0-29.9) (Acute) S/P laparoscopic sleeve gastrectomy (Acute) Mood disorder due to known physiological condition, unspecified (Acute) Obesity (Acute) Vitamin D deficiency (Acute) Insulin resistance (Acute) Hypothyroidism (Acute) Hyperlipidemia (Acute) DJD (degenerative joint disease) (Acute) GERD (gastroesophageal reflux disease) (Acute) Past Medical History Medical History Postgastrectomy malabsorption Depression Bipolar disorder Iron deficiency anemia PONV (postoperative nausea and vomiting) Migraines Arthritis Lico's disease Anxiety Sciatica History of herniated intervertebral disc Hyperlipidemia DJD (degenerative joint disease) GERD (gastroesophageal reflux disease) Family History Family History Mother Diabetes Hypertension Father No problems noted. Son No problems noted. Son No problems noted. Daughter No problems noted. Family history of problems with anesthesia: No Surgical History Surgical History History of sleeve gastrectomy H/O Spinal surgery Hx of section Hx of cholecystectomy History of Problems with Anesthesia: No Social History Social History Household Members: Family Housing: Apartment Are you a primary managed care coordinator to a significant other at home: No Do you presently have visiting nurse or other home services: No Alcohol intake: never Patient Tobacco Use Status: Former Tobacco user Tobacco use type: Cigarette Cigarettes Per Day: 4 Years Smoked: 30 e-Cigarette/Vaping Use: Currently Using Have you been hit, kicked, punched, or otherwise hurt by someone within the past year? If so, by whom?: No Spiritual Healthcare Practices: no Christianity Healthcare Practices: no Cultural Healthcare Practices: no Are you DNR?: No Advance Directives on File: No Patient : No FDLMP: 04/01/25 : No Poor oral hygiene: No (multiple crowns) service: No Meds Allergies Allergy/AdvReac Type Severity Reaction Status Date / Time diphenhydramine (From AdvReac Mild palpitation Verified 05/06/25 08:19 Benadryl) s/anxiety Home Medications ?Medication ?Instructions ?Recorded ?Confirmed ?Last Taken ?Type levothyroxine 100 mcg capsule 100 mcg PO DAILY 3 05/06/25 03/06/23 History biotin 10,000 mcg chewable tablet 10,000 mcg PO DAILY 10/02/24 05/06/25 Unknown History (Hair, Skin and Nails (biotin)) multivitamin (Daily Multi-Vitamin 1 tab PO DAILY 10/0205/06/25 Unknown History tablet) Exam Height,Weight and Vital Signs: Height 5 ft Weight 54.431 kg Pertinent Lab Results Pertinent Lab Results: Laboratory Tests 04/27/25 15:02 Blood Type B Positive Antibody Screen NEGATIVE Laboratory Tests 04/27/25 15:02 WBC 5.0 Hgb 10.5 L Hct 34.1 L Plt Count 184 Sodium 140 Potassium 3.7 Chloride 108 Carbon Dioxide 25 BUN 13 Creatinine 0.64 Assessment and Plan Assessment Anesthesia Assessment: Chart Reviewed Final Anesthetic Review Family History of Problems with Anesthesia: No History of Problems with Anesthesia: No Documented by User: Shyann Ibarra MD 05/06/25 11:10 [facility] Past Medical History Medical History Postgastrectomy malabsorption Depression Bipolar disorder Iron deficiency anemia PONV (postoperative nausea and vomiting) Migraines Arthritis Lico's disease Anxiety Sciatica History of herniated intervertebral disc Hyperlipidemia DJD (degenerative joint disease) GERD (gastroesophageal reflux disease) Family History Family History Mother Diabetes Hypertension Father No problems noted. Son No problems noted. Son No problems noted. Daughter No problems noted. Surgical History Surgical History History of sleeve gastrectomy H/O Spinal surgery Hx of section Hx of cholecystectomy Social History Social History Household Members: Family Housing: Apartment Are you a primary managed care coordinator to a significant other at home: No Do you presently have visiting nurse or other home services: No Alcohol intake: never Patient Tobacco Use Status: Former Tobacco user Tobacco use type: Cigarette Cigarettes Per Day: 4 Years Smoked: 30 e-Cigarette/Vaping Use: Currently Using Have you been hit, kicked, punched, or otherwise hurt by someone within the past year? If so, by whom?: No Spiritual Healthcare Practices: no Christianity Healthcare Practices: no Cultural Healthcare Practices: no Are you DNR?: No Advance Directives on File: No Patient : No FDLMP: 04/01/25 : No Poor oral hygiene: No (multiple crowns) service: No Meds Allergies Allergy/AdvReac Type Severity Reaction Status Date / Time diphenhydramine (From AdvReac Mild palpitation Verified 05/06/25 08:19 Benadryl) s/anxiety Home Medications ?Medication ?Instructions ?Recorded ?Confirmed ?Last Taken ?Type levothyroxine 100 mcg capsule 100 mcg PO DAILY 3 05/06/25 03/06/23 History biotin 10,000 mcg chewable tablet 10,000 mcg PO DAILY 10/02/24 05/06/25 Unknown History (Hair, Skin and Nails (biotin)) multivitamin (Daily Multi-Vitamin 1 tab PO DAILY 10/0205/06/25 Unknown Hi story tablet) Exam Airway Mallampati Class: II TM Dist: >3cm Neck ROM: Full Loose/Missing/Broken Teeth: No Heart: RRR Lungs: CTA Assessment and Plan Assessment Anesthesia Assessment: Anesthesia Plan Discussed Final Anesthetic Review NPO: Yes ASA Class: II Final Preanesthetic Review: Meds/Allgs Chart Reviewed, Consent Obtained/Reviewed and Anes Risks/Benef Reviewed Patient Risk: Low Procedure Risk: Low Anesthetic Plan Anesthetic Plan: GA Disposition: Standard PACU
[2025-05-06] VITALS (9 sets, daily range): BP systolic 88–109; BP diastolic 43–60; PULSE 74–97; RESP 12–16; TEMP 36.1–37.3; O2SAT 95–98; BMI 23.5
[2025-05-06 08:29] LABS: UPreg QC Valid YES
[2025-05-06] MEDS: Lactated Ringers 1,000 ML 100 ML IVCONT (08:33)
[2025-05-06] MEDS: Aprepitant 32 MG/4.4 ML VIAL IVPUSH (08:38)
--- NOTE | 2025-05-06 10:27 | MHC.SHP ---
Pre-Procedural Eval Section A - 24 Hr Update-Section A only Date of Service: 05/06/25 The patient is an INPATIENT: No The patient has been examined within 24 hours of the surgical procedure. The History & Physical has been completed within 30 days and I have reviewed it.: Yes Section B - Complete if H&P > 30 days Chief Complaint: Excessive and redundant skin and subcut tissue Relevant Family History (Specify if Yes): No Relevant Social History: None Present Medications: None Medical History: No relevant PMH History of Previous Operations: Relevant previous surgery/procedure and date(s) (Laparoscopic sleeve gastrectomy) Allergies: Allergies Allergy/AdvReac Type Severity Reaction Status Date / Time diphenhydramine (From AdvReac Mild palpitation Verified 05/06/25 08:19 Benadryl) s/anxiety Review of Systems Sugical H&P ROS: Negative: Constitution, Cardiovascular, Respiratory, Neurological, Psychiatric, Hem-Onc, Allergic/Immunologic, Gastrointestinal, Genitourinary, Musculoskeletal, Integumentary, Endocrine and Eyes/Ears/Nose/Throat Exam Surgical H&P Exam: Normal: HEENT, Normal: Heart, Normal: Lungs, Normal: Extremities, Normal: Abdomen, Normal: Skin and Normal: Neurological Plan Diagnosis/Plan: Unchanged I have reviewed the history and physical and performed a pertinent physical examination on my patient. No changes have occurred unless specified. Time Spent With Patient Time: Total time managing care of this patient today ____ minutes.
--- NOTE | 2025-05-06 10:28 | PM.OP ---
Brief Operative Note Date of Service: 05/06/25 Pre-op diagnosis: Excess skin Post-op diagnosis: same Procedure: PROCEDURE: Panniculectomy with umbilical transposition and bilateral subcutaneous fat flaps INDICATION: This a 45 year old female who underwent laparoscopic sleeve gastrectomy on 03/06/2023. She had an excellent result achieving a BMI of 22.7 kg/m2 with a total weight loss of 92.4lbs, or 43.5% of her TBWL. As a result, she has developed panniculitis which has not resolved despite continuous use of clotrimazole ointment as well as skin irritation. On exam she has extreme skin laxity due to massive weight loss, with the abdominal pannus completely hanging 4cm below the pubis. Panniculectomy was recommended. We discussed the two options for the panniculectomy of using a combined vertical and horizontal incisions or just a horizontal (bikini) incision. It was my recommendation to do only horizontal incision based on her body habitus and skin laxity. The patient agreed with this. Risks and complications were discussed with the patient including bleeding, infection, umbilical loss, flap necrosis, asymmetry, dehiscence, seroma, VTE. The patient understood the risks and was in agreement to proceed with surgery. PROCEDURE: The incisions were appropriately marked at the preop area with the patient standing and laying down. After induction of general anesthesia a White catheter and pneumatic compression devices were placed. The patient was prepped and draped in the usual sterile manner and the incisions were marked again and confirmed. The skin was infiltrated with lidocaine and epinephrine. The #10 blade scalpel was used for the large incisions and the #15 blade scalpel for the umbilicus. Cautery was used to divide the subcutaneous tissues until the fascia was identified. Then I used the cautery to separate the pannus from the fascia. The inferior incision was made initially and I mobilized the flap for a several centimeters cephalad to the umbilicus. The umbilicus was incised circumferentially and detached from the surrounding tissues all the way to the fascia while its stalk was preserved. With the patient in reflex position I confirmed that the skin flaps were appropriate and would allow for the tissues to come together with reasonable tension. At that point a horizontal incision was made 4 cm above the umbilicus. #10 blade was used for the skin, cautery for the dermis and for the remaining tissues. A subcutaneous fat flap was raised from the upper skin flap in order to fill the space under the skin and support the closure of the two flaps. In addition the inferior flap was mobilized caudally for a few centimeters to create a space for the subcutaneous fat flap as well as relieve tension from the closure. A circumferential incision was made at the area where the umbilicus would be re-implanted. The umbilicus was appropriately oriented and was delivered through the defect and was secured in place with a [place]. No bleeding was noted anywhere. One ANTONELLA drain was placed from the left corner of the horizontal incision across the wound and was secured in place with a silk suture. The subcutaneous fat flap was secured under the inferior flap with several interrupted 3.0 Monocryl sutures. The two flaps were brought together and were attached at the midline of the horizontal incision with a #3.0 Monocryl suture. At that point the umbilicus was properly oriented and was re-approximated to the skin with 8 interrupted 3.0 Monocryl sutures. In a similar fashion the skin flaps were re-approximated with multiple 3.0 Monocryl sutures. The skin was closed in all incisions and umbilicus with 4.0 Monocryl sutures. Steri-strips, xeroform gauzes and gauzes were used to cover the incisions. An abdominal binder was also placed. The was awaken and was transferred to the recover room in a stable condition. I was present and performed the entire procedure. Ms. Coe was the sourcing assistant. Westley Kelsey MD, PhD, FACS Surgeon: Partha Kelsey MD Surgeon: Partha Kelsey MD Anesthesia: GETA and local Was an Sheet Metal Superintendent used for this Procedure?: No Estimated blood loss (mL): 10 IV fluids (mL): 1,800 Urine output (mL): 0 (No White to record output) Pathology: other (Abdominal pannus) Condition: stable Disposition: PACU
--- NOTE | 2025-05-06 10:48 | W.MHC.F2F ---
Service Date Service Date: 05/06/25 Encounter Date of encounter: 05/06/25 Reasons for Services Signs and symptoms assessed: s/p panniculectomy with drain placement Reason for senior living: wound care Homebound: Leaving the home is medically contraindicated at this time without the asist of a device and/or another person due th the listed conditions above and below. Reason homebound: unable to drive Certification: Based on the above findings, I certify that this patient is confined to the home and needs intermittent senior living care, physical therapy and/or speech therapy, or continues to need occupational therapy. The patient is under my care, and I have initiated the establishment of the plan of care. The patient will be followed by a physician who will periodically review the plan of care. Time Spent With Patient Time: Total time managing care of this patient today __30__ minutes.
--- NOTE | 2025-05-06 16:06 | PC.NURSE ---
PATIENT GIVEN ZOFRAN 4 MG SL PRIOR TO HER DISCHARGE R/T NAUSEA. ANESTHESIOLOGIST AWARE OF THIS BEING THE PATIENT'S 2ND DOSE OF 4 MG. FIRST DOSE AT 2:13. PATIENT LOOKED LESS PALE UPON DISCHARGE AND STATED SHE FELT OK TO GO HOME.
== END 2025-05-06 16:09 | disposition home or self-care (01) ==
PROVIDERS: Nurse Practitioner; Visit Provider Surgery
PROC: 0JB80ZZ Excision of Abdomen Subcutaneous Tissue and Fascia, Open Approach (ICD-10-PCS; CPT 15830; principal; 2025-05-06 10:20)
DX: L98.7 Excessive and redundant skin and subcutaneous tissue (principal); M79.3 Panniculitis, unspecified; E65 Localized adiposity; L57.4 Cutis laxa senilis; K91.2 Postsurgical malabsorption, not elsewhere classified; R63.4 Abnormal weight loss; Z68.22 Body mass index [BMI] 22.0-22.9, adult; K21.9 Gastro-esophageal reflux disease without esophagitis; Z98.84 Bariatric surgery status; Z90.3 Acquired absence of stomach [part of]; K59.00 Constipation, unspecified; D64.9 Anemia, unspecified; E61.1 Iron deficiency; E78.5 Hyperlipidemia, unspecified; E06.3 Autoimmune thyroiditis; E55.9 Vitamin D deficiency, unspecified; M19.90 Unspecified osteoarthritis, unspecified site; F32.A Depression, unspecified; F41.9 Anxiety disorder, unspecified; Z79.899 Other long term (current) drug therapy; Z88.8 Allergy status to other drugs, medicaments and biological substances; Z90.49 Acquired absence of other specified parts of digestive tract; Z98.890 Other specified postprocedural states; F17.210 Nicotine dependence, cigarettes, uncomplicated
CPT/HCPCS: 15830; 15847; 81025; 86850; 86900; 86901; 88304; C9145; J0131; J0690; J1100; J1171; J1630; J2003; J2004; J2250; J2371; J2405; J2704; J3010; J3374

== ENCOUNTER → 2025-05-06 08:06 | Outpatient (BNV) | payer MEDICAID, SELFPAY | PROVIDERS: Visit Provider Physician Assistant Surgical | DX: M79.3 Panniculitis, unspecified (principal); L98.7 Excessive and redundant skin and subcutaneous tissue | CPT/HCPCS: 15830; G0180 ==

== ENCOUNTER 2025-05-12 15:20 | Outpatient (AMB) | payer MEDICAID, SELFPAY ==
[2025-05-12 15:47] VITALS: BP 109/62; PULSE 97; TEMP 36.7; O2SAT 100
--- NOTE | 2025-05-12 15:47 | MHC.OFFVISWM ---
VS Expanded 05/12/25 15:47 BP 109/62 Blood Pressure Location Rt brachial Blood Pressure Position Sitting Pulse 97 Pulse Source Pulse Oximeter Temp 98.1 F Temperature Source Temporal Artery Scan Pulse Oximetry 100 Oxygen Delivery Method Room Air Intake Visit Reasons: (OV) s/p Panniculectomy 05/06/25 Allergies diphenhydramine (From Benadryl) Adverse Reaction (Mild, Verified 05/12/25 15:48) palpitations/anxiety Medication List - Last Reconciled 05/13/25 by YANN Grimm biotin (Hair, Skin and Nails (biotin)) 10,000 mcg PO DAILY cephalexin 500 mg PO Q12H docusate sodium (Colace) 100 mg PO DAILY iron,carbonyl-vitamin C 65 mg iron- 125 mg (Vitron-C) 1 tab PO DAILY levothyroxine 100 mcg PO DAILY multivitamin (Daily Multi-Vitamin tablet) 1 tab PO DAILY ondansetron 4 mg PO Q12H HPI Comments Details: Pt is 1 week s/p panniculectomy 05/06/2025. No fevers at home, taking abx but only daily. Following meal plan. Wearing binder. [facility] Medical History Postgastrectomy malabsorption Depression Bipolar disorder Iron deficiency anemia PONV (postoperative nausea and vomiting) Migraines Arthritis Lico's disease Anxiety Sciatica History of herniated intervertebral disc Hyperlipidemia DJD (degenerative joint disease) GERD (gastroesophageal reflux disease) Surgical History History of sleeve gastrectomy H/O Spinal surgery Hx of section Hx of cholecystectomy Family History Mother Diabetes Hypertension Father No problems noted. Son No problems noted. Son No problems noted. Daughter No problems noted. Social History Household Members: Family Housing: Apartment Are you a primary residential child care counselor to a significant other at home: No Do you presently have visiting nurse or other home services: No Alcohol intake: never Patient Tobacco Use Status: Former Tobacco user Tobacco use type: Cigarette Cigarettes Per Day: 4 Years Smoked: 30 e-Cigarette/Vaping Use: Currently Using service: No Physical Exam Vital Signs: Last Vital Signs Temp 98.1 F 05/12/25 15:47 Pulse 97 05/12/25 15:47 BP 109/62 05/12/25 15:47 Pulse Ox 100 05/12/25 15:47 Oxygen Delivery Method Room Air 05/12/25 15:47 Const General: cooperative, comfortable and no acute distress Orientation/consciousness: patient oriented x3 GI Other: soft, nontender, nondistended, panniculectomy incision healing well, drain output SS Neuro General: patient oriented x3 Assessment & Plan Assessment & Plan (1) S/P panniculectomy: Code(s): Z98.890 - Other specified postprocedural states Category: Medical (2) S/P laparoscopic sleeve gastrectomy: Code(s): Z98.84 - Bariatric surgery status Category: Medical Plan Continue high protein diet. ABX keflex 500 BID x 2 weeks, extended as needed?(at least until drain comes out plus 1 week).? Drain out after consistently 20 mL or less daily.? Abdominal binder at all times except for care x 1 month?MINIMUM. If there are concerns longer.? No driving?until drain out.? No walking outside or exercise for 6 weeks minimum. Walking in the house okay. Assistance getting up for 4 weeks minimum.?No lifting greater than?10 pounds x 2 months and no abdominal exercises x 3 months.
--- OUTSIDE RECORDS SUMMARY | 2025-05-12 18:17 | XMS_ITS | Encounter Summary ---
Author Organization [employer] Address [address] [place] [address] Care Team Providers Care Portainer Operator Name Role Phone Betsy Waldrop MD Primary Care Provider [phone] Encounter Details Date Type Department Care Team (Late st Contact Info) Description 11/19/2024 Orders Only [facility] [address], [place] [phone] Velia Hudson MD [address] [place] [address] Anemia, unspecified type (Primary Dx) Social History [...] the past 12 months, has t he [employer] gas, oil or water company threatened to [...] as of this encounter Plan of Treatment Pending Results Name Type Priority Associated Diagnoses Date /Time Vitamin A Lab Routine Anemia, unspecified type 04/27/2025 3:02 PM EDT Scheduled Orders Name Type Priority Associated Diagnoses Orde r Schedule Iron And Total Iron Binding Capacity Lab Routine Anemia, unspecified type Expected: 11/19/2024, Expires: 11/19/2025 Ferritin Lab Routine Anemia, unspecified type Expected: 11/19/2024, Expires: 11/19/2025 documented as of this encounter Procedures Procedure Name Priority Date/Time Associated Diagnosis Comments CBC WITH AUTO DIFFERENTIAL Routine 04/27/2025 3:02 PM EDT Anemia, unspecified type ZINC Routine 04/27/2025 3:02 PM EDT Anemia, unspecified type VITAMIN A Routine 04/27/2025 3:02 PM EDT Anemia, unspecified type TYPE AND SCREEN Routine 04/27/2025 3:02 PM EDT Anemia, unspecified type HEMOGLOBIN A1C Routine 04/27/2025 3:02 PM EDT Anemia, unspecified type VITAMIN B12 Routine 04/27/2025 3:02 PM EDT Anemia, unspecified type RETICULOCYTE COUNT Routine 11/24/2024 11 :23 AM EDT Anemia, unspecified type documented in this encounter Results * Zinc (04/27/2025 3:02 PM EDT) Zinc 65 60 - 130 mcg/dL [facility] Comment:This test was develo ped and its analytical performancecharacteristics have been determined by [employer] [place], [place]. It hasnot been cleared or approved by the U.S. Food and DrugAdministration. This assay has been validated pursuantto the CLIA regulations and is used for clinicalpurposes.THIS TEST WAS PERFORMED AT:[employer]/[id number] [place] [address]CSUOZILCOLIN GALVAN MD,PHD 04/27/2025 3:02 PM EDT 04/27/2025 3:17 PM EDT Generic External Data Provider LAB BLOOD ORDERAB LES Final Result Performing Organization Address [facility] Co de Phone Number [facility] [address] [place] [phone] * Vitamin B12 (04/27/2025 3:02 PM EDT) Vitamin B12 466 200 - 900 pg/mL [facility] Comment:NORMAL 200-900 PG/M L INDETERMINATE 160-199 PG/ML DEFICIENT < 160 PG/ML 04/27/2025 3:02 PM EDT 04/27/2025 3:17 PM EDT Generic External Data Provider LAB BLOOD ORDERAB LES Final Result Performing Organization Address City/[facility]/ZIP Co de Phone Number [facility] [address] [place] [address] [phone] * Type and screen (04/27/2025 3:02 PM EDT) Blood Type BP [facility] Antibody Screen NEGATIVE [facility] 04/27/2025 3:02 PM EDT 04/27/2025 3:29 PM EDT Narrative [facility] - 04/27/2025 4:12 PM EDT Spec expiration changed by NISHANT on 04/27/25Reason: PAT SSSWITNESSED BY AGUSTIN.NURSING:Call Blood Bank (ext. [phone]) to band patient on admission.Type and Screen in effect until 2300 on 05/06/25 us Generic External Data Provider LAB BLOOD BANK TE ST ORDERABLES Final Result [facility] [address] [place] [phone] * Hemoglobin A1c (04/27/2025 3:02 PM EDT) Hemoglobin A1c 4.8 <6.0 % [facility] Comment:Hemoglobin A1C Refer ence Range Adults: 4.8 - 6.0 % Non diabetic: < 6.0 % Goal: < 7.0 %Additional Action Suggested: > 8.0 %Note: Hemoglobin A1c results are invalid for patients with abnormal amounts of HbF. Blood transfusions may impact the HbA1c concentration in the patient sample. Estimated Average Glucose 91 mg/dL [facility] Comment:eAG = Estimated ave rage glucose which is %A1C expressed asaverage glucose, using the formula of the [id number]-[id number] Glucose study (ADAG), Diabetes Care, Vol.31,#8,Feb. 2007 04/27/2025 3:02 PM EDT 04/27/2025 3:17 PM EDT us Generic External Data Provider LAB BLOOD ORDERAB LES Final Result [facility] [address] [place] [address] [phone] * (ABNORMAL) CBC auto differential (04/27/2025 3:02 PM EDT) White Blood Count 5.0 4.8 - 10.8 X10*3/uL [facility] Red Blood Count 4.36 4.20 - 5.50 X10*6/uL [facility] Hemoglobin 10.5(L) 12.0 - 16.0 g/dl [facility] Hematocrit 34.1(L) 37.0 - 47.0 % [facility] Mean Corpuscular Volume 78.2(L) 80.0 - 98.0 fL [facility] Mean Corpuscular Hemoglobin 24.1(L) 27.0 - 33.0 pg [facility] Mean Corpuscular HGB Conc 30.8(L) 31.0 - 35.0 g/dl [facility] Red Cell Distribution Width 21.0(H) 11.0 - 16.0 % [facility] Platelet Count 184 160 - 400 X10*3/uL [facility] Mean Platelet Volume 10.0 9.4 - 12.3 fL [facility] Neutrophils Percent Auto 56.5 45 - 73 % [facility] Imm Gran Pct Auto 0.4 0.0 - 0.4 % [facility] Lymphocytes Percent Auto 31.1 20 - 40 % [facility] Monocytes Percent Auto 8.4 2 - 11 % [facility] Eosinophils Percent Auto 2.0 0 - 4 % [facility] Basophils Percent Auto 1.6 0 - 2 % [facility] NRBC Pct Auto 0.0 0.0 - 0.2 /100WBC [facility] Neutrophils Absolute Auto 2.8 2.0 - 8.3 x10*3/uL [facility] Imm Gran Abs Auto 0.02 0.00 - 0.03 X10*3/uL [facility] Lymphocytes Absolute Auto 1.6 1.2 - 4.9 X10*3/uL [facility] Monocytes Absolute Auto 0.4 0.1 - 1.2 X10*3/uL [facility] Eosinophils Absolute Auto 0.1 0.0 - 0.4 X10*3/uL [facility] Basophils Absolute Auto 0.1 0.0 - 0.2 X10*3/uL [facility] NRBC Abs Auto 0.000 0.0 - 0.012 X10*3/uL [facility] 04/27/2025 3:02 PM EDT 04/27/2025 3:17 PM EDT us Generic External Data Provider LAB BLOOD ORDERAB LES Final Result Performing Organization Address [facility] Co de Phone Number [facility] [address] [place] [phone] * (ABNORMAL) Reticulocyte Count (11/24/2024 11:23 AM EDT) Reticulocytes Absolute 0.055 0.026 - 0.095 X10*6/uL [facility] Immature Retic Fraction 19.5(H) 3.0 - 15.9 % [facility] Retic HGB Equivalent 21.1(L) 30.0 - 35.0 pg [facility] Reticulocyte Percent 1.2 0.5 - 1.8 % [facility] Blood Venous blood specimen / Unknown 11/24/2024 11:23 AM EDT 11/24/2024 2:17 PM EDT us Velia Hudson MD LAB BLOOD ORDERABLES Final Result Performing Organization Address [facility] Co de Phone Number [facility] [address] [place] [phone] documented in this encounter Visit Diagnoses Diagnosis Anemia, unspecified type- Primary documented in this encounter Additional Health Concerns Assessment Noted Time PHQ-9 Depression Total Score: 13 024 8:42 AM EDT documented as of this encounter Care Teams Portainer Operator Relationship Specialty Start Date End Date Betsy Waldrop MD [address] [place] [phone] PCP - General Family Medicine 08/30/22 documented as of this encounter
--- OUTSIDE RECORDS SUMMARY | 2025-05-12 18:17 | XMS_ITS | Clinical Summary ---
Author Organization Formerly [facility] Address [address] [place] [address] Care Team Providers Care French Cord Binder Name Role Phone Max Arizmendi Primary Care Provider [phone] Allergies Active Allergy Reactions Criticality Noted Date [...] empty stomach. 90 tablet 1 2 Active Bzo-RiMbqr-XK-DHA (Vitafol-One) 29-1-200 MG CapIndications:Esha haas is a [...] (09/30/2020): Added automatically from request for surgery [id number] Assessment & Plan (11/03/2020 10:48 AM EDT): [...] was recommended to per her provider at [facility] Assessment & Plan (08/30/2021 4:27 PM EST): [...] past but not on meds since 2018. patient services technician referral placed. DF Assessment & Plan (04/27/2020 [...] (03/22/2018): Added automatically from request for surgery [id number] Assessment & Plan (04/27/2020 4:24 PM EDT): Patient reports history of herniated disk and sciatica. Will have anesthesia consult later in . Lumbar radiculopathy 03/19/2018 020 Overview (03/22/2018): Added automatically from request for surgery [id number] Immunizations Immunization Administration Dates Next Due Influenza [...] to Confirmation (09/29/2020 3:36 PM EDT) Pathologist [facility] HIV 1/2 Ag/Ab CMIA Nonreactive Nonreactive HOSPITAL LAB Comment: Results show no evidence of infection by HIV 1/2. If clinically indicated, repeat CMIA or test by nucleic acid amplification. Performed at [facility], [place], [place] License 0385 CLIA [id number] Blood specimen (specimen) Blood specimen / Unknown 09/29/2020 3:36 PM EDT 09/29/2020 6:22 PM EDT us Audrey Luevano MD LAB BLOOD ORDERABLES Marizol l Result HOSPITAL LAB * Hepatitis C Virus (HCV) Antibody (04/08/2020 11:00 AM EDT) Pathologist [facility] Hepatitis C Antibody 0.15 0.00 - 0.79 S/CO ratio HOSPITAL LAB Hepatitis C Antibody Interpretation Nonreactive Nonreactive HOSPITAL LAB Comment:Performed at [facility], [place], [place] License 0385 CLIA [id number] Blood specimen (specimen) Heel structure / Unknown 04/08/2020 11:00 AM EDT 04/08/2020 12:32 PM EDT us Rachele Cheung MD LAB BLOOD ORDERABLES Final Result HOSPITAL LAB from Last 3 Months or Most Recently Relevant to Health Maintenance Insurance [facility] Advance Directives * [...] 6:42 PM 06/28/2019 5:12 PM Care Teams French Cord Binder Relationship Specialty Start Date End Date Max Arizmendi [address] [place] [id number] PCP - General 09/01/19
--- OUTSIDE RECORDS SUMMARY | 2025-05-12 18:17 | XMS_ITS | Encounter Summary ---
Author Organization [facility] Address [address] [place] [address] Care Team Providers Care Employment Attorney Name Role Phone Max Arizmendi Primary Care Provider Tammy Naylor LPCA Unavailable Anusha Molina FISHING VESSEL CAPTAIN Unavailable Rachele Ornelas CLINICAL ASSESSMENT MANAGER Unavailable Encounter Details Date Type Department Care Team (Late st Contact Info) Description 11/21/[address] [facility] [address] [place] [address] [phone] Rachele Cheung MD [address] [place] [address] Social History Tobacco Use Types Packs/Day Years [...] on filedocumented in this encounter Care Teams Employment Attorney Relationship Specialty Start Date End Date Ugo Destinycheng [address] [place] [address] PCP - General 09/01/19 Tammy Naylor LPCA [address] [place] [address] Clinician Social Work 05/03/20 02/21/22 Anusha Molina APRN [address] [place] [address] Primary BH Attending Psychiatry, General 05/06/2002/22 Rachele Ornelas LCSW [address] [place] [address] Banking Supervisor Clinical Social Work 05/24/20 02/21/22 documented as of this encounter
--- OUTSIDE RECORDS SUMMARY | 2025-05-12 18:17 | XMS_ITS | Encounter Summary ---
Author Organization [email or web address] Address [address] [place] [address] Care Team Providers Care Medical Office Coordinator Name Role Phone Betsy Waldrop MD Primary Care Provider [phone] Reason for Visit * Reason Onset Date Comments FYI 05/06/2025 Encounter Details Date Type Department Care Team (Late st Contact Info) Description 05/06/2025 Telephone [facility] [address] [place] [address] Betsy Waldrop MD [address] [place] [address] FYI Social History Tobacco Use Types Packs/Day Years [...] encounter Miscellaneous Notes * Telephone Encounter - Jackson Irving - 05/06/2025 10:57 AM EDT Tc from Doreen REILLY stating pt is currently at [facility] for scheduled panniculectomy, they donot expect pcp to sign orders since they will most likely be signed by the surgeon. They just wanted pcp to be aware that they will be involved. documented in this encounter Plan of Treatment Not on file documented as of this encounter Visit Diagnoses Not on filedocumented in this encounter Additional Health Concerns Assessment Noted Time PHQ-9 Depression Total Score: 2 03/09/20 25 11:01 AM EDT documented as of this encounter Care Teams Medical Office Coordinator Relationship Specialty Start Date End Date Betsy Waldrop MD [address] [place] [id number] PCP - General Family Medicine 08/30/22 documented as of this encounter
--- OUTSIDE RECORDS SUMMARY | 2025-05-12 18:17 | XMS_ITS | Encounter Summary ---
Author Organization [facility] Address [address] [place] [address] Care Team Providers Care Can Filling And Closing Machine Tender Name Role Phone Max Arizmendi Primary Care Provider Tammy Naylor LPCA Unavailable Anusha Molina SHEET METAL SUPERVISOR Unavailable Rachele Ornelas LABOR UTILIZATION SUPERINTENDENT Unavailable Encounter Details Date Type Department Care Team (Late st Contact Info) Description 10/27/2020 Prep for Surgery [facility] [address] [place] [phone] Ashley Piña MD [facility] [address] [facility] [address] [place] [address] Social History Tobacco Use Types Packs/Day Years [...] A/P d/w Dr. 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 Anxiety ??? Depressed ??? Disease of thyroid gland Past Surgical History: Past Surgical History: Procedure Laterality Date ??? SECTION ??? CHOLECYSTECTOMY ??? ID NJX DX/THER SBST INTRLMNR LMBR/SAC W/IMG GDN Right 03/22/2018 Procedure: IR Epidural Inject Steroid Lumbar/Sacral w/img; Surgeon: Rakesh Garvey MD; Location: [facility]; Service: Interventional Radiology Social History: Denies [...] tablet 3 ??? Blood Glucose Monitoring Suppl (Kliqed) w/Device Kit USE TO TEST BLOOD GLUCOSE [...] by mouth daily. 14 packet 1 ??? Xjw-BtIeli-HR-DHA ( MULTIVITAMIN PER STATE FORMULARY) tablet Take 1 tablet by mouth daily as directed. Dispense Brand per State Formulary. 30 tablet 11 ??? SUPPLY [facility] cradle. Length of need 6 months. [...] on filedocumented in this encounter Care Teams Can Filling And Closing Machine Tender Relationship Specialty Start Date End Date Max Arizmendi [address] [place] [address] PCP - General 09/01/19 Tammy Naylor LPCA [address] [place] [address] Clinician Social Work 05/03/20 02/21/22 Anusha Molina APRN [address] [place] [address] Primary BH Attending Psychiatry, General 05/06/2002/22 Backer Rachele Lawrence LCSW [address] [place] [address] Dispatch Supervisor Clinical Social Work 05/24/20 02/21/22 documented as of this encounter
--- OUTSIDE RECORDS SUMMARY | 2025-05-12 18:17 | XMS_ITS | Encounter Summary ---
Author Organization [facility] Address [address] [place] [address] Care Team Providers Care Quarter Seamer Name Role Phone Max Arizmendi Primary Care Provider [phone] Tammy Naylor LPCA Unavailable [phone] Anusha Molina RESEARCH BIOSTATISTICIAN Unavailable Rachele Ornelas MOTORCYCLE SUBASSEMBLER Unavailable [phone] Encounter Details Date Type Department Care Team (Late st Contact Info) Description 11/25/2020 Scanned Document [facility] [address] [place] [phone] Josie Bingham MD [address] [place] [address] Social History Tobacco Use Types Packs/Day Years [...] on filedocumented in this encounter Care Teams Quarter Seamer Relationship Specialty Start Date End Date Ugo Destinycheng [address] [place] [address] PCP - General 09/01/19 Tammy Naylor LPCA [address] [place] [address] Clinician Social Work 05/03/20 02/21/22 Anusha Molina APRN [address] [place] [address] Primary BH Attending Psychiatry, General 05/06/2002/22 Rachele Ornelas LCSW [address] [place] [address] Beer Merchant Clinical Social Work 05/24/20 02/21/22 documented as of this encounter
--- OUTSIDE RECORDS SUMMARY | 2025-05-12 18:17 | XMS_ITS | Clinical Summary ---
Author Organization [employer] Address [address] [place] [address] Care Team Providers Care Propeller Engineer Name Role Phone Betsy Waldrop MD Primary Care Provider [phone] Allergies Active Allergy Reactions Criticality Noted Date [...] mouth every other day. 90 tablet 1 Active ibuprofen 600 MG tablet Active fluticasone (Flonase) 50 MCG/ACT nasal sprayIndications: Sinus congestion Administer 2 sprays into each nostril Once per day. Shake gently. Before first use, prime pump. After use, clean tip and replace cap. 16 g 2 025 2025 Active Ventolin HFA 108 (90 Base) MCG/ACT inhalerIndication s:Wheezing INHALE 2 PUFFS EVERY 4 HOURS NEEDED FOR WHEEZING 18 g Active albuterol 108 (90 Base) MCG/ACT inhalerIndication s:Wheezing Inhale 2 puffs every 4 (four) hours if needed for wheezing. 18 g 025 2024 Discontinued Active Problems Problem Noted [...] send to pain management Bipolar II disorder ([facility]) 05/13/2020 Overview (12/09/2023): ID: Yani is a [...] intervention , Patient to [facility] to [facility] team as needed, Patient to engage in OP therapy , and Patient to reach out to HC as needed Assessment & Plan (10/30/2023 10:32 [...] Center 10/10/2023 3:15 PM Betsy Waldrop MD [facility] Insomnia due to other mental disorder [...] Severe anxiety 09/10/2019 Smoker 09/10/2019 Morbid obesity ([facility]) 09/10/2019 Assessment & Plan (10/04/2022 5:01 PM EDT): Discussed calorie deficit, recommended reduction of 20-30% of maintenance calories; group director experience referral offered. Recommended to decrease soda and [...] (08/30/2022): Added automatically from request for surgery [id number] Last Assessment & Plan: Continue diet control. Patient did not bring meter or log today. Seen by nutrition Gestational thrombocytopenia 09/01/2020 10/04/2022 Overview (10/03/2022): Plts 144 on 09/01/20 Needs repeat CBC next visit (10/06/20) Last Assessment & Plan: Plt 158 at last visit 10/27/20 Encounters Date Type Department Care Team Description 05/06/[address] [address] Betsy Waldrop MD FYI 05/06/2025 Orders Only GENERIC EXTERNAL DATA DEPARTMENT Provider, Generic External Data 05/03/2025 Orders Only [facility] [address] [place] [address] India Parsons CNP Lumbar back pain with radiculopathy affecting lower extremity (Primary Dx); Polyarthralgia 04/27/2025 Refill [facility] [address] [place] [address] India Parsons CNP Wheezing 03/09/2025 10:45 AM EDT Office Visit [facility] [address] [place] [address] India Parsons CNP Encounter for screening for malignant neoplasm of colon (Primary Dx); Encounter for physical examination; Acquired hypothyroidism; Iron deficiency anemia due to chronic blood loss; Polyarthralgia; Sinus congestion; Positive NORRIS (antinuclear antibody); Menorrhagia with regular cycle; Wheezing 03/09/2025 Travel 03/08/2025 Travel 03/05/2025 Telephone [facility] [address] [place] [address] Betsy Waldrop MD chart prep 03/01/2025 Patient Outreach [facility] [address] [place] [address] Betsy Waldrop MD Pre-visit Planning (SDOH negative, Tobacco screening positive. ) 02/18/2025 Telephone [facility] [address] [place] [address] Betsy Waldrop MD Lab Orders 02/16/2025 Telephone [facility] [address] [place] [address] Betsy Waldrop MD Appointment Request from Last [...] 1980 FIT 1978 FOBT 1978 Sigmoidoscopy 1978 Alcohol/Substance Use Screening 1990 Mammogram 2018 COVID-19 Vaccine ( season) 2025 Disability Screening 10/28/2025 10/28/2024 Influenza Vaccine (#1) [...] 49) Years Completed 04/27/2024 HIV Screening Completed 05/26/2024 Hepatitis [...] Procedure Name Priority Date/Time Associated Diagnosis Comments GROSS AND MICROSCOPIC LEVEL 3 Routine 05/06/2025 12:36 PM EDT HCG, QL, URINE Routine 05/06/2025 8:11 AM EDT VITAMIN A Routine 04/27/2025 3:02 PM EDT [...] EDT Routine general medical examination at a [facility] care facility TSH W/REFLEX TO FT4 Routine [...] Recently Relevant to Health Maintenance Results * Gross and Microscopic Level 3 (05/06/2025 12:36 PM EDT) 05/06/2025 12:3 6 PM EDT 05/06/2025 2:13 PM EDT Bradley [facility] - 05/10/2025 4:51 PM EST ----- ------- Name: Yani Obrien Age/Sex: 45/F : 1980 Unit#: [id number] Attend Dr: Partha Kelsey MD Re05/06/25 Status: [facility] Location: [facility] Disch: ----- ------- SPEC : [id number] RECD: 05/06/25 STATUS: MINDY RAI NUM: [id number] ANA: 05/06/251236 [facility] DR: Partha Kelsey MD ENTERED: 05/06/25 SP TYPE: Surgical OTHR DR: India Parsons NP ORDERED: Gross Micro L3 Diagnosis Soft tissue, pannus, excision: Skin and subcutaneous lobulated adipose tissue without histopathologic abnormalities. Clinical History Excessive and redundant skin Microscopic Description Microscopic sections reviewed. Material Received Pannus Gross Description Received formalin 29.5 x 18.4 cm portion of robels skin red up to 3.7 cm of attached subcutaneous fat. There are several surgical clips along the deep surface. There is a central 2.4 x 1.7 cm defect. Also received within the container is a 3.2 x 2.5 x 1.1 cm portion of adipose tissue with a 1.2 x 1.1 cm attached portion of skin. Sectioning shows no gross abnormalities. Clinical Program Manager sections, including skin are submitted in cassettes A1. (RJD) IHC S/NG Disclaimer NOTE: Unless otherwise stated, all tissue is formalin-fixed and paraffin-embedded. Some or all of the immunohistochemical tests reported herein may have been developed and their performance characteristics determined by [facility]. They have not been cleared or approved by the U.S. Food and Drug Administration (FDA). However, the FDA has determined that such clearance or approval is not necessary. This laboratory is certified under the Clinical Laboratory Improvement Amendments of 1988 (CLIA) as qualified to perform high complexity clinical laboratory testing. Copies To: Partha Kelsey MD [facility] [address] [place] [id number] CONTINUED ON NEXT PAGE ----- ------- Name: Yani Obrien Age/Sex: 45/F : 1980 Unit#: [id number] Attend Dr: Partha Kelsey MD Re05/06/25 [place] [facility] [place] [facility] Disch: ----- ------- SPEC : [id number] RECD: 05/06/25-942 STATUS: MINDY RAI NUM: [id number] ANA: 05/06/251236 [address]BM [address]: Partha Kelsey MD ENTERED: 05/06/257615 SP TYPE: Surgical OTHR DR: India Parsons NP ORDERED: Gross Micro L3 Copies To: (Continued) India Parsons NP [facility] [address] [place] [address] ----- ------- Signed (signature on file) Ana Anthony MD 05/10/25 5970 ----- ------- END OF REPORT us Generic External Data Provider LAB CYTOLOGY ANNA ADAM Final Result [facility] [address] [place] [address] [phone] * HCG, Qualitative, Urine (05/06/2025 8:11 AM EDT) Urine NEGATIVE NEGATIVE [facility] Comment:This test was develo ped to detect early . Falsenegative results may occur after the 5th - 7th week ofpregnancy when using this test method. If clinicallyindicated, consider a serum hCG. 05/06/2025 8:11 AM EDT 05/06/2025 8:21 AM EDT us Generic External Data Provider LAB URINE ORDERAB LES Final Result [facility] [address] [place], [place] [phone] * (ABNORMAL) CBC auto differential (04/27/2025 3:02 PM EDT) Only the most recent of2 resultswithin the time period is included. White Blood Count 5.0 4.8 - 10.8 X10*3/uL [facility] Red Blood Count 4.36 4.20 - 5.50 X10*6/uL [facility] Hemoglobin 10.5(L) 12.0 - 16.0 g/dl [facility] Hematocrit 34.1(L) 37.0 - 47.0 % [facility] Mean Corpuscular Volume 78.2(L) 80.0 - 98.0 fL [facility] Mean Corpuscular Hemoglobin 24.1(L) 27.0 - 33.0 pg [facility] Mean Corpuscular HGB Conc 30.8(L) 31.0 - 35.0 g/dl [facility] Red Cell Distribution Width 21.0(H) 11.0 - 16.0 % [facility] Platelet Count 184 160 - 400 X10*3/uL [facility] Mean Platelet Volume 10.0 9.4 - 12.3 fL [facility] Neutrophils Percent Auto 56.5 45 - 73 % [facility] Imm Gran Pct Auto 0.4 0.0 - 0.4 % [facility] Lymphocytes Percent Auto 31.1 20 - 40 % [facility] Monocytes Percent Auto 8.4 2 - 11 % [facility] Eosinophils Percent Auto 2.0 0 - 4 % [facility] Basophils Percent Auto 1.6 0 - 2 % [facility] NRBC Pct Auto 0.0 0.0 - 0.2 /100WBC [facility] Neutrophils Absolute Auto 2.8 2.0 - 8.3 x10*3/uL [facility] Imm Gran Abs Auto 0.02 0.00 - 0.03 X10*3/uL [facility] Lymphocytes Absolute Auto 1.6 1.2 - 4.9 X10*3/uL [facility] [...] [facility] 04/27/2025 3:02 PM EDT 04/27/2025 3:17 PM EDT us Generic External Data Provider LAB BLOOD ORDERAB LES Final Result Performing Organization Address [facility] de Phone Number [facility] [address] [place] [phone] * Zinc (04/27/2025 3:02 PM EDT) Zinc 65 60 - 130 mcg/dL [facility] Comment:This test was develo ped and its analytical performancecharacteristics have been determined by [employer] [place], [place]. It hasnot been cleared or approved by the U.S. Food and DrugAdministration. This assay has been validated pursuantto the CLIA regulations and is used for clinicalpurposes.THIS TEST WAS PERFORMED AT:e[facility] [place] [address]QNPWGTPCOLIN GALVAN MD,PHD 04/27/2025 3:02 PM EDT 04/27/2025 3:17 PM EDT us Generic External Data Provider LAB BLOOD ORDERAB LES Final Result Performing Organization Address [facility] Co de Phone Number [facility] [address] [place] [phone] * Type and screen (04/27/2025 3:02 PM EDT) Blood Type BP [facility] Antibody Screen NEGATIVE [facility] 04/27/2025 3:02 PM EDT 04/27/2025 3:29 PM EDT Narrative [facility] - 04/27/2025 4:12 PM EDT Spec expiration changed by NISHANT on 04/27/25Reason: PAT SSSWITNESSED BY AGUSTIN.NURSING:Call Blood Bank (ext. [phone]) to band patient on admission.Type and Screen in effect until 2300 on 05/06/25 us Generic External Data Provider LAB BLOOD BANK TE ST ORDERABLES Final Result Performing Organization Address City/[facility]/ZIP Co de Phone Number [facility] [address] [place] [phone] * Hemoglobin A1c (04/27/2025 3:02 PM EDT) Hemoglobin A1c 4.8 <6.0 % [facility] Comment:Hemoglobin A1C Refer ence Range Adults: 4.8 - 6.0 % Non diabetic: < 6.0 % Goal: < 7.0 %Additional Action Suggested: > 8.0 %Note: Hemoglobin A1c results are invalid for patients with abnormal amounts of HbF. Blood transfusions may impact the HbA1c concentration in the patient sample. Estimated Average Glucose 91 mg/dL [facility] Comment:eAG = Estimated ave rage glucose which is %A1C expressed asaverage glucose, using the formula of the L5A-WgeksdzMyealmi Glucose study (ADAG), Diabetes Care, Vol.31,#8,Feb. 2007 04/27/2025 3:02 PM EDT 04/27/2025 3:17 PM EDT us Generic External Data Provider LAB BLOOD ORDERAB LES Final Result Performing Organization Address [facility]/ZIP Co de Phone Number [facility] [address] [place] [phone] * Vitamin B12 (04/27/2025 3:02 PM EDT) Vitamin B12 466 200 - 900 pg/mL [facility] Comment:NORMAL 200-900 PG/ML INDETERMINATE 160-199 PG/ML DEFICIENT < 160 PG/ML 04/27/2025 3:02 PM EDT 04/27/2025 3:17 PM EDT Generic External Data Provider LAB BLOOD ORDERAB LES Final Result Performing Organization Address [facility]/ZIP Co de Phone Number [facility] [address] [place] [phone] * Hepatitis B surface antigen, EIA (03/12/2025 12:56 PM EDT) Pathologist [facility] Hepatitis B Surface Ag Negative Negative [facility] Blood Venous blood specimen / Unknown 03/12/2025 12:56 PM EDT 03/12/2025 2:21 PM EDT [facility] LAB BLOOD ORDERABLES Marizol l Result Performing Organization Address [facility] Co de Phone Number [facility] [address] [place] [phone] * Hepatitis B Core Antibody, Total (03/12/2025 12:56 PM EDT) Pathologist [facility] Hepatitis B Core Antibody Nonreactive Nonreactive [facility] Blood Venous blood specimen / Unknown 03/12/2025 12:56 PM EDT 03/12/2025 2:21 PM EDT [facility] LAB BLOOD ORDERABLES Marizol l Result Performing Organization Address City/[facility]/ZIP Co de Phone Number [facility] [address] [place] [phone] * Hepatitis B Surface Antibody, Qualitative (03/12/2025 12:56 PM EDT) ~Hepatitis B Surface Antibody REACTIVE Nonreactive [facility] Comment:REACTIVE: > 11.99 mI U/mL Blood Venous blood specimen / Unknown 03/12/2025 12:56 PM EDT 03/12/2025 2:21 PM EDT [facility] LAB BLOOD ORDERABLES Marizol l Result Performing Organization Address [facility] de Phone Number [facility] [address] [place] [phone] * Lipid Panel, Standard (03/12/2025 12:56 PM EDT) Pathologist [facility] Triglycerides 32 <150 mg/dL [facility] Comment:Desirable Triglyceri de: less than [...] 190 mg/dL HDL Cholesterol 63 >40 mg/dL [facility] Comment:Desirable HDL: great er than 40 mg/dL Note: This HDL assay may give artificially low results in patients with liver disease. Blood Venous blood specimen / Unknown 03/12/2025 12:56 PM EDT 03/12/2025 2:21 PM EDT [facility] LAB BLOOD ORDERABLES Marizol l Result Performing Organization Address [facility] Co de Phone Number [facility] [address] [place] [phone] * (ABNORMAL) Comprehensive Metabolic Panel (03/12/2025 12:56 PM EDT) [facility] Sodium 139 135 - 145 mmol/L [facility] [...] Kidney Disea se: Estimated GFR < 60 mL/min/1.28l0Ynwrow Kidney Disease: Estimated GFR < 15 mL/min/1.73m2 [...] 12:56 PM EDT 03/12/2025 2:21 PM EDT [facility] LAB BLOOD ORDERABLES Marizol l Result [facility] [address] [place] [phone] * T-SPOT??.TB (02/23/2025 10:31 AM EDT) [facility] T Spot TB Negative Negative [facility] Negative Control Passed [facility] Positive Control Passed [facility] Comment:For additional infor matmiya, please refer tohttp://education.[employer]/faq/JWL436(This link is being provided for informational/educational purposes only.)THIS TEST WAS PERFORMED AT:e27/[address] [id number] [place] [address]ULBQJLJCOLIN GALVAN MD,PHD 02/23/2025 10:3 1 AM EDT 02/23/2025 1:55 PM EDT us Betsy Waldrop MD LAB BLOOD ORDERABLES Final Re sult [facility] [address] [place] [phone] * TSH W/Reflex to FT4 (02/23/2025 10:31 AM EDT) TSH reflex Free T4 2.71 0.32 - 4.0 uIU/mL [facility] Blood Venous blood specimen / Unknown 02/23/2025 10:31 AM EDT 02/23/2025 1:55 PM EDT Betsy Waldrop MD LAB BLOOD ORDERABLES Final Re sult Performing Organization Address [facility] Co de Phone Number [facility] [address] [place] [phone] * Hepatitis C Antibody with Reflex [...] ORDERABLES Final Re sult Performing Organization Address [facility] Co de Phone Number [facility] [address] [place] [phone] * HIV-1/2 Antigen and Antibodies, Fourth Generation, with Reflexes (05/26/2024 3:54 PM EST) HIV AB/AG Nonreactive Nonreactive [facility] Comment:HIV-1 p24 Ag and/or HIV-1/HIV-2 Ab not detected.A test result that is nonreactive does not exclude thepossibility of exposure to or infection with HIV-1 and/orHIV-2. Nonreactive results in this assay for individualswith prior exposure to HIV-1 and/or HIV-2 may be due toantigen and antibody levels that are below the limit ofdetection of this assay.The [employer] HIV Ag/Ab Combo assay result andsupplemental assay [...] [facility] [address] [place] [phone] * Pap Smear (02/04/2024 12:00 AM EDT) SOURCE: SEE NOTE [facility] Comment:None given Report Status: [facility] Clinical Information: SEE NOTE [facility] [...] for gavin luation.Endocervical/transformation zone componentpresent. General Categorization: [facility] Interpretation/Result: SEE NOTE [facility] Comment:Cytology Results: Ne gative for intraepitheliallesion or malignancy. Cytology Comment SEE NOTE [facility] Comment:This Pap test has be en evaluated with computerassisted technology. Soap Maker: SEE NOTE [facility] Comment:YP, CT(ASCP)CT scree jessica location: [address] [address] Review Soap Maker: SEE NOTE [facility] Comment:SL, CT(ASCP)CT scree jessica location: [address] [address] Pathologist [facility] PAP Infection [facility] See Note SEE [facility] Comment:EXPLANATORY NOTE:The Pap is a screening test for cervical cancer. It isnot a diagnostic test and is subject to false negativeand false positive results. It is most reliable when asatisfactory sample, regularly obtained, is submittedwith relevant clinical findings and history, and whenthe Pap result is evaluated along with historic andcurrent clinical information.THIS TEST WAS PERFORMED AT:[employer] [place] [address]TLUIVPERLA VALLE MD Pap Vial Vaginal structure / Unknown 02/04/2024 02/04/2024 [facility] - 02/07/2024 10:36 AM EDT SEE SCANNED RESULTS IN EMR us Betsy Waldrop MD LAB PATHOLOGY ORDERABLES Marizol benitez Result [facility] [address] [place] [phone] * HPV mRNA E6/E7 w/Reflex to [...] alternative testing options.For additional information, please refer tohttp://education.[employer]/faq/CZP765f8(This link if provided for information/educational purposes only.)THIS TEST PERFORMED AT:[employer] [place] [phone] DIRECTOR: PERLA VALLE MD HPV mRNA E6/E7 [facility] HPV 16 RNA [facility] HPV 18/45 RNA [facility] Vaginal Fluid Cervix uteri structure / Unknown 02/04/2024 02/04/2024 [facility] - 02/07/2024 10:36 AM EDT SEE SCANNED RESULTS IN EMRCollection Date: [id number] by: FIDE Carr: Cervix us Betsy Waldrop MD LAB CYTOLOGY ORDERABLES Final Result [facility] [address] [place] [phone] from Last 3 Months or Most Recently Relevant to Health Maintenance [facility] Care Teams Propeller Engineer Relationship Specialty Start Date End Date Betsy Waldrop MD [address] [place] [address] PCP - General Family Medicine 08/30/22
--- OUTSIDE RECORDS SUMMARY | 2025-05-12 18:17 | XMS_ITS | Encounter Summary ---
Author Organization [facility] Address [address] [place] [address] Care Team Providers Care Infection Control Rn Name Role Phone Max Arizmendi Primary Care Provider Tammy Naylor LPCA Unavailable Anusha Molina REVENUE RESEARCH ANALYST Unavailable Rachele Ornelas INVESTMENT COUNSELOR Unavailable [phone] Encounter Details Date Type Department Care Team (Late st Contact Info) Description 03/24/2020 [facility] [address] [facility] [address] [place] [phone] Dolly Enamorado MD 85 [facility] [address] [place] [address] Hypothyroidism (acquired) (Primary Dx) Social History Tobacco [...] Performing Organization Information: Site ID: [id number] Name: [facility] Address: [address] [place] [address], [place] [address] Director: Deanne Mcdonough MD us Dolly Enamorado MD LAB BLOOD ORDERABLES Final R esult [facility] [address] [place] [address], [place] [address] * T4, Free (04/15/2020 2:52 PM EDT) T4, Free 1.3 0.8 - 1.8 ng/dL [facility] Blood specimen (specimen) Heel structure / Unknown 04/15/2020 2:52 PM EDT 04/15/2020 2:52 PM EDT Narrative [facility] - 04/16/2020 3:40 AM EDT FASTING:NO FASTING: NO Resulting Agency Comment Performing Organization Information: Site ID: [id number] Name: [facility] Address: [address] [place] [address], [facility] [place] [address] Director: Deanne Mcdonough MD Dolly Enamorado MD LAB BLOOD ORDERABLES Final R esult [facility] [address], [place] [address] documented in this encounter Visit Diagnoses Diagnosis Hypothyroidism (acquired)- Primary Unspecified hypothyroidism documented in this encounter Care Teams Infection Control Rn Relationship Specialty Start Date End Date Max Arizmendi [address] [place] [address] PCP - General 09/01/19 Tammy Naylor LPCA [address] [place] [address] Clinician Social Work 05/03/20 02/21/22 Anusha Molina APRN [address] [place] [address] Primary BH Attending Psychiatry, General 05/06/2002/22 Backer Rachele Lawrence LCSW [address] [place] [address] Gis Web Developer Clinical Social Work 05/24/20 02/21/22 documented as of this encounter
--- OUTSIDE RECORDS SUMMARY | 2025-05-12 18:18 | XMS_ITS | Encounter Summary ---
Author Organization [employer] Address [address] [facility] [address]t [place] [address] Care Team Providers Care Volunteer Services Specialist Name Role Phone Betsy Waldrop MD Primary Care Provider [phone] Reason for Visit * Reason Onset Date Comments Nurse Triage 04/23/2024 Encounter Details Date Type Department Care Team (Late st Contact Info) Description 04/23/2024 Telephone [facility] MED & PEDS [address] [place], [place] [id number] Betsy Waldrop MD [address] [place] [address] Nurse Triage Social History Tobacco Use Types [...] the past 12 months, has t he [employer], gas, oil or water company threatened to [...] documented as of this encounter Care Teams Volunteer Services Specialist Relationship Specialty Start Date End Date Betsy Waldrop MD [address] [place] [address] PCP - General Family Medicine 08/30/22 documented as of this encounter
--- OUTSIDE RECORDS SUMMARY | 2025-05-12 18:18 | XMS_ITS | Clinical Summary ---
Author Organization [facility] Address [address] [place] [address] Care Team Providers Care Crew Boat Operator Name Role Phone Unavailable Primary Care Provider [...] with Friends and Family Never 09/10/2019 Attends Zoroastrianism Services Never 09/09 Active Member of Clubs [...] this topic ObrienVeroniqueYani Personal/Family Self [address] [address] Obrien,Yani Behavioral Health Self 1980 [address] [address]
--- OUTSIDE RECORDS SUMMARY | 2025-05-12 18:18 | XMS_ITS | Encounter Summary ---
Author Organization [employer] Address 75 [facility] 7t [place] [address] Care Team Providers Care Student Assistant Name Role Phone Betsy Waldrop MD Primary Care Provider [phone] Reason for Visit * Reason Onset Date Comments Reschedule 12/17/2023 chart prep 12/17/2023 Encounter Details Date Type Department Care Team ([facility] st Contact Info) Description 12/17/2023 Telephone [facility] CHC MED & PEDS [address] [place] [address] Betsy Waldrop MD [address] [place] [address] Reschedule; chart prep Social History Tobacco Use [...] 12/16 PAP appointment. Please contact pt at [phone] documented in this encounter Plan of Treatment Not on file documented as of this encounter Visit Diagnoses Not on filedocumented in this encounter Additional Health Concerns Assessment Noted Time PHQ-9 Depression Total Score: 13 024 8:42 AM EDT documented as of this encounter Care Teams Student Assistant Relationship Specialty Start Date End Date Betsy Waldrop MD [address] [place] [address] PCP - General Family Medicine 08/30/22 documented as of this encounter
--- OUTSIDE RECORDS SUMMARY | 2025-05-12 18:18 | XMS_ITS | Encounter Summary ---
Author Organization [employer] Address [address] [facility] [address] 7[address] [place] [address] Care Team Providers Care Auxiliary Engineer Name Role Phone Betsy Waldrop MD Primary Care Provider [phone] Encounter Details Date Type Department Care Team (Late st Contact Info) Description 09/26/[address] [facility] MEDICINE [address] [place] [address] Betsy Waldrop MD [address] [place] [address] Social History Tobacco Use Types Packs/Day Years [...] one being able to take her to [facility]. * Telephone Encounter - Lorena Katz - [...] documented as of this encounter Care Teams Auxiliary Engineer Relationship Specialty Start Date End Date Betsy Waldrop MD [address] [place] [address] PCP - General Family Medicine 08/30/22 documented as of this encounter
--- OUTSIDE RECORDS SUMMARY | 2025-05-12 18:18 | XMS_ITS | Encounter Summary ---
Author Organization [employer] Address 75 [facility] 7t [place] [address] Care Team Providers Care Raw Scales Operator Name Role Phone Betsy Waldrop MD Primary Care Provider [phone] Encounter Details Date Type Department Care Team (Late st Contact Info) Description 12/04/2022 Abstract [facility] Information Management [address] [place] [address] Betsy Waldrop MD [address] [place] [address] Social History Tobacco Use Types Packs/Day Years [...] documented as of this encounter Care Teams Raw Scales Operator Relationship Specialty Start Date End Date Betsy Waldrop MD [address] [place] [address] PCP - General Family Medicine 08/30/22 documented as of this encounter
--- OUTSIDE RECORDS SUMMARY | 2025-05-12 18:18 | XMS_ITS | Encounter Summary ---
Author Organization [facility] Address [address] [place] [address] Care Team Providers Care Project Administrative Assistant Name Role Phone Max Arizmendi Primary Care Provider Tammy Naylor LPCA Unavailable Anusha Molina VEGETABLE FARM WORKER Unavailable Rachele Ornelas REPACK ROOM WORKER Unavailable Encounter Details Date Type Department Care Team (Late st Contact Info) Description 09/29/2020 Prep for Surgery [facility] [address] [place] [address] [phone] Lori Lau MD [address] [place] [address] Diet controlled gestational diabetes mellitus (GDM) in [...] Primary documented in this encounter Care Teams Project Administrative Assistant Relationship Specialty Start Date End Date Max Arizmendi [address] [place] [address] PCP - General 09/01/19 Tammy Naylor LPCA [address] [place] [address] Clinician Social Work 05/03/20 02/21/22 Anusha Molina APRN [address] [place] [address] Primary Attending Psychiatry, General 05/06/2002/22 Rachele Ornelas LCSW [address] [place] [address] Utilization Engineer Clinical Social Work 05/24/20 02/21/22 documented as of this encounter
== END 2025-05-12 16:24 | disposition home or self-care (01) ==
LOC: HO.HBS 15:20
PROVIDERS: Visit Provider Physician Assistant Surgical
DX: Z71.3 Dietary counseling and surveillance (principal); Z98.890 Other specified postprocedural states; Z98.84 Bariatric surgery status
CPT/HCPCS: 99024

== ENCOUNTER → 2025-05-12 15:20 | Outpatient (BNVA) | payer MEDICAID, SELFPAY | PROVIDERS: Visit Provider Physician Assistant Surgical | DX: Z48.817 Encounter for surgical aftercare following surgery on the skin and subcutaneous tissue (principal) | CPT/HCPCS: 99212 ==

== ENCOUNTER 2025-05-20 13:53 | Outpatient (AMB) | payer MEDICAID, SELFPAY ==
--- NOTE | 2025-05-20 13:39 | A.OFFVIS_ITS ---
VS Expanded 05/20/25 14:08 BP 118/77 Blood Pressure Location Lt brachial Blood Pressure Position Sitting Pulse 96 Pulse Source Pulse Oximeter Temp 98.2 F Temperature Source Skin Pulse Oximetry 98 Oxygen Delivery Method Room Air Intake Visit Reasons: (OV) s/p Panniculectomy 05/06/25 Allergies diphenhydramine (From Benadryl) Adverse Reaction (Mild, Verified 05/12/25 15:48) palpitations/anxiety Medication List - Last Reconciled 05/20/25 by Jessica Otoole CNP biotin (Hair, Skin and Nails (biotin)) 10,000 mcg PO DAILY cephalexin 500 mg PO Q12H docusate sodium (Colace) 100 mg PO DAILY iron,carbonyl-vitamin C 65 mg iron- 125 mg (Vitron-C) 1 tab PO DAILY levothyroxine 100 mcg PO DAILY multivitamin (Daily Multi-Vitamin tablet) 1 tab PO DAILY ondansetron 4 mg PO Q12H HPI Comments Details: 45 yo woman presents s/p panniculectomy 05/06/2025. Drain output 20-25cc per day umbilical pain around the reconstructed umbilicus independent dsg changes daily, VNA comes a few times a week some trouble sleeping, goes to bed early and sometimes misses last protein toddler at home keeps her busy compliant with meal plan, abd binder, and ABX PFSH Medical History Postgastrectomy malabsorption Depression Bipolar disorder Iron deficiency anemia PONV (postoperative nausea and vomiting) Migraines Arthritis Lico's disease Anxiety Sciatica History of herniated intervertebral disc Hyperlipidemia DJD (degenerative joint disease) GERD (gastroesophageal reflux disease) Surgical History History of sleeve gastrectomy H/O Spinal surgery Hx of section Hx of cholecystectomy Family History Mother Diabetes Hypertension Father No problems noted. Son No problems noted. Son No problems noted. Daughter No problems noted. Social History Household Members: Family Housing: Apartment Are you a primary home health care provider to a significant other at home: No Do you presently have visiting nurse or other home services: No Alcohol intake: never Patient Tobacco Use Status: Former Tobacco user Tobacco use type: Cigarette Cigarettes Per Day: 4 Years Smoked: 30 e-Cigarette/Vaping Use: Currently Using service: No Physical Exam Const General: cooperative, comfortable and no acute distress Orientation/consciousness: patient oriented x3 GI Other: soft, nontender, nondistended, panniculectomy incision healing well, umbilicus slightly reddened but healing well, no S&S of infection. drain output SS Neuro General: patient oriented x3 Assessment & Plan Assessment & Plan (1) S/P laparoscopic sleeve gastrectomy: Code(s): Z98.84 - Bariatric surgery status Category: Surgical (2) S/P panniculectomy: Code(s): Z98.890 - Other specified postprocedural states Category: Surgical Plan Continue high protein diet. She is sometimes missing her last protein of the day since she falls asleep early after her son falls asleep. She will try altering her eating times to be able to fit in all proteins. Drain out after consistently 20 mL or less daily.? Abdominal binder at all times except for incision care x 1 month?MINIMUM. Longer if there are concerns No walking outside or exercise for 6 weeks minimum. Walking in the house okay. Assistance getting up for 4 weeks minimum.?No lifting greater than?10 pounds x 2 months and no abdominal exercises x 3 months. No driving?until drain out.? Follow up: 1 week, as scheduled on 05/26/2025
[2025-05-20 14:08] VITALS: BP 118/77; PULSE 96; TEMP 36.8; O2SAT 98
--- OUTSIDE RECORDS SUMMARY | 2025-05-20 17:15 | XMS_ITS | Encounter Summary ---
Author Organization [facility] Address [address] [place] [address] Care Team Providers Care Car Ferry Master Name Role Phone Max Arizmendi Primary Care Provider Tammy Naylor LPCA Unavailable Anusha Molina REFERENCE SERVICES HEAD Unavailable [phone] Rachele Ornelas ENTRY LEVEL PROJECT COORDINATOR Unavailable Encounter Details Date Type Department Care Team (Late st Contact Info) Description 11/21/2020 Scanned Document [facility] [address] [place] [address] [phone] Rachele Cheung MD [address] [place] [address] Social History Tobacco Use Types Packs/Day Years [...] on filedocumented in this encounter Care Teams Car Ferry Master Relationship Specialty Start Date End Date Ugo Destinycheng [address] [place] [address] PCP - General 09/01/19 Tammy Naylor LPCA [address] [place] [address] Clinician Social Work 05/03/20 02/21/22 Anusha Molina APRN [address] [place] [address] Primary BH Attending Psychiatry, General 05/06/2002/22 Rachele Ornelas LCSW [address] [place] [address] Captain Of Guards Clinical Social Work 05/24/20 02/21/22 documented as of this encounter
--- OUTSIDE RECORDS SUMMARY | 2025-05-20 17:15 | XMS_ITS | Encounter Summary ---
Author Organization [facility] Address [address] [place] [address] Care Team Providers Care Sapphire Stylus Grinder Name Role Phone Max Arizmendi Primary Care Provider [phone] Tammy Naylor LPCA Unavailable [phone] Anusha Molina C ARCHITECT Unavailable [phone] Rachele Ornelas DUCO POLISHER Unavailable [phone] Encounter Details Date Type Department Care Team (Late st Contact Info) Description 11/25/2020 Scanned Document [facility] [address] [place] [address] [phone] Josie Bingham MD [address] [place] [address] Social History Tobacco Use Types Packs/Day Years [...] on filedocumented in this encounter Care Teams Sapphire Stylus Grinder Relationship Specialty Start Date End Date Ugo Destinycheng [address] [place] [address] PCP - General 09/01/19 Tammy Naylor LPCA [address] [place] [address] Clinician Social Work 05/03/20 02/21/22 Anusha Molina APRN [address] [place] [address] Primary BH Attending Psychiatry, General 05/06/2002/22 Rachele Ornelas LCSW [address] [place] [address] National Service Officer Clinical Social Work 05/24/20 02/21/22 documented as of this encounter
--- OUTSIDE RECORDS SUMMARY | 2025-05-20 17:15 | XMS_ITS | Encounter Summary ---
Author Organization [facility] Address [address] [place] [address] Care Team Providers Care Bun Panner Name Role Phone Max Arizmendi Primary Care Provider Tammy Naylor LPCA Unavailable [phone] Anusha Molina PEDIATRIC ORTHODONTIST Unavailable Rachele Ornelas RN HEMODIALYSIS CHARGE Unavailable [phone] Encounter Details Date Type Department Care Team (Late st Contact Info) Description 03/24/2020 [facility] [address] [facility] [address] [place] [phone] Dolly Enamorado MD [facility] [address] [place] [address] Hypothyroidism (acquired) (Primary Dx) Social History Tobacco [...] Performing Organization Information: Site ID: [id number] Name: [facility] Address: [address] [place] [address], [place] [address] Director: Deanne Mcdonough MD us Dolly Enamorado MD LAB BLOOD ORDERABLES Final R esult [facility] [address] [place] [address], [place] [address] * T4, Free (04/15/2020 2:52 PM EDT) T4, Free 1.3 0.8 - 1.8 ng/dL [facility] Blood specimen (specimen) Heel structure / Unknown 04/15/2020 2:52 PM EDT 04/15/2020 2:52 PM EDT Narrative [facility] - 04/16/2020 3:40 AM EDT FASTING:NO FASTING: NO Resulting Agency Comment Performing Organization Information: Site ID: [id number] Name: [employer] Address: [address] [place] [address], [facility] [place] [address] Director: Deanne Mcdonough MD Dolly Enamorado MD LAB BLOOD ORDERABLES Final R esult [facility] [address], [place] [address] documented in this encounter Visit Diagnoses Diagnosis Hypothyroidism (acquired)- Primary Unspecified hypothyroidism documented in this encounter Care Teams Bun Panner Relationship Specialty Start Date End Date Max Arizmendi [address] [place] [address] PCP - General 09/01/19 Tammy Naylor LPCA [address] [place] [address] Clinician Social Work 05/03/20 02/21/22 Anusha Molina APRN [address] [place] [address] Primary BH Attending Psychiatry, General 05/06/2002/22 Backer Rachele Lawrence LCSW [address] [place] [address] Multi Spindle Operator Clinical Social Work 05/24/20 02/21/22 documented as of this encounter
--- OUTSIDE RECORDS SUMMARY | 2025-05-20 17:16 | XMS_ITS | Encounter Summary ---
Author Organization [employer] Address [address] [facility] [address] 7t [place] [address] Care Team Providers Care Barrel Builder Name Role Phone Betsy Waldrop MD Primary Care Provider [phone] Reason for Visit * Reason Onset Date Comments Nurse Triage 04/23/2024 Encounter Details Date Type Department Care Team (Late st Contact Info) Description 04/23/2024 Telephone [facility] CHC MED & PEDS [address] [place], [place] [phone] Betsy Waldrop MD [address] [place] [address] Nurse Triage Social History Tobacco Use Types [...] the past 12 months, has t he [employer], gas, oil or water company threatened to [...] documented as of this encounter Care Teams Barrel Builder Relationship Specialty Start Date End Date Betsy Waldrop MD [address] [place] [address] PCP - General Family Medicine 08/30/22 Nalini REILLY 05/07/25 documented as of this encounter
--- OUTSIDE RECORDS SUMMARY | 2025-05-20 17:16 | XMS_ITS | Encounter Summary ---
Author Organization [facility] Address [address] [place] [address] Care Team Providers Care Cleaner And Trimmer Name Role Phone Max Arizmendi Primary Care Provider [phone] Tammy Naylor LPCA Unavailable Anusha Molina CLAY CARMAN Unavailable Rachele Ornelas METAL FURNITURE PANEL COVERER Unavailable Encounter Details Date Type Department Care Team (Late st Contact Info) Description 09/29/2020 Prep for Surgery [facility] [address] [place] [address] [phone] Lori Lau MD [address] [place] [address] Diet controlled gestational diabetes mellitus (GDM) in [...] Primary documented in this encounter Care Teams Cleaner And Trimmer Relationship Specialty Start Date End Date Max Arizmendi [address] [place] [address] PCP - General 09/01/19 Tammy Naylor LPCA [address] [place] [address] Clinician Social Work 05/03/20 02/21/22 Anusha Molina APRN [address] [place] [address] Primary Attending Psychiatry, General 05/06/2002/22 Rachele Ornelas LCSW [address] [place] [address] Bailer Tenders Supervisor Clinical Social Work 05/24/20 02/21/22 documented as of this encounter
--- OUTSIDE RECORDS SUMMARY | 2025-05-20 17:16 | XMS_ITS | Encounter Summary ---
Author Organization [employer] Address [address] [facility] [address] 7t [place] [address] Care Team Providers Care Bag Adjuster Name Role Phone Betsy Waldrop MD Primary Care Provider [phone] Reason for Visit * Reason Onset Date Comments FYI 05/06/2025 Encounter Details Date Type Department Care Team (Late st Contact Info) Description 05/06/2025 Telephone [facility] MEDICINE [address] [place] [address] Betsy Waldrop MD [address] [place] [address] FYI Social History Tobacco Use Types Packs/Day [...] - 05/06/2025 10:57 AM EDT Tc from [facility] with Nalini REILLY stating pt is currently at [facility] for [place] panniculectomy, they donot expect pcp [...] documented as of this encounter Care Teams Bag Adjuster Relationship Specialty Start Date End Date Betsy Waldrop MD [address] [place] [address] PCP - General Family Medicine 08/30/22 Nalini REILLY 05/07/25 documented as of this encounter
--- OUTSIDE RECORDS SUMMARY | 2025-05-20 17:16 | XMS_ITS | Encounter Summary ---
Author Organization [employer] Address 75 [facility] 7t [place] [address] Care Team Providers Care Auto Dealership Porter Name Role Phone Betsy Waldrop MD Primary Care Provider [phone] Reason for Visit * Reason Onset Date Comments Reschedule 12/17/2023 chart prep 12/17/2023 Encounter Details Date Type Department Care Team ([facility] st Contact Info) Description 12/17/2023 Telephone [facility] CHC MED & PEDS [address] [place] [address] Betsy Waldrop MD [address] [place] [address] Reschedule; chart prep Social History Tobacco Use [...] 12/16 PAP appointment. Please contact pt at [phone] documented in this encounter Plan of Treatment Not on file documented as of this encounter Visit Diagnoses Not on filedocumented in this encounter Additional Health Concerns Assessment Noted Time PHQ-9 Depression Total Score: 13 024 8:42 AM EDT documented as of this encounter Care Teams Auto Dealership Porter Relationship Specialty Start Date End Date Betsy Waldrop MD [address] [place] [address] PCP - General Family Medicine 08/30/22 Nalini REILLY 05/07/25 documented as of this encounter
--- OUTSIDE RECORDS SUMMARY | 2025-05-20 17:16 | XMS_ITS | Encounter Summary ---
Author Organization [employer] Address [address] [facility] [address] [place] [address] Care Team Providers Care Multi Spindle Operator Name Role Phone Betsy Waldrop MD Primary Care Provider [phone] Encounter Details Date Type Department Care Team (Late st Contact Info) Description 11/19/2024 Orders Only [facility] [address] [place], [place] [phone] Velia Hudson MD [address] [place] [address] Anemia, unspecified type (Primary Dx) Social History [...] your housing situation today? I have alyssa ahas 10/23/[address] you li [...] the past 12 months, has t he [employer], gas, oil or water company threatened to [...] EDT) Zinc 65 60 - 130 mcg/dL [facility] Comment:This test was develo ped and its analytical performancecharacteristics have been determined by [employer] [place], [place]. It hasnot been cleared or approved by the U.S. Food and DrugAdministration. This assay has been validated pursuantto the CLIA regulations and is used for clinicalpurposes.THIS TEST WAS PERFORMED AT:[email or web address] [facility] [facility] [place] [address]NZJJZXMCOLIN GALVAN MD,PHD 04/27/2025 3:02 PM EDT 04/27/2025 3:17 PM EDT Generic External Data Provider LAB BLOOD ORDERAB LES Final Result Performing Organization Address [facility] Co de Phone Number [facility] [address] [place] [phone] * Vitamin B12 (04/27/2025 3:02 PM EDT) Vitamin B12 466 200 - 900 pg/mL [facility] Comment:NORMAL 200-900 PG/ML INDETERMINATE 160-199 PG/ML DEFICIENT < 160 PG/ML 04/27/2025 3:02 PM EDT 04/27/2025 3:17 PM EDT Generic External Data Provider LAB BLOOD ORDERAB LES Final Result Performing Organization Address City/[facility]/ZIP Co de Phone Number [facility] [address] [place] [phone] * Type and screen (04/27/2025 3:02 PM EDT) Blood Type BP [facility] Antibody Screen NEGATIVE [facility] 04/27/2025 3:02 PM EDT 04/27/2025 3:29 PM EDT Narrative [facility] - 04/27/2025 4:12 PM EDT Spec expiration changed by NISHANT on 04/27/25Reason: PAT SSSWITNESSED BY AGUSTIN.NURSING:Call Blood Bank (ext. [phone]) to band patient on admission.Type and Screen in effect until 2300 on 05/06/25 us Generic External Data Provider LAB BLOOD BANK TE ST ORDERABLES Final Result [facility] [address] [place] [phone] * Hemoglobin A1c (04/27/2025 3:02 PM EDT) Hemoglobin A1c 4.8 <6.0 % [facility] Comment:Hemoglobin A1C Refer ence Range Adults: 4.8 - 6.0 % Non diabetic: < 6.0 % Goal: < 7.0 %Additional Action Suggested: > 8.0 %Note: Hemoglobin A1c results are invalid for patients with abnormal amounts of HbF. Blood transfusions may impact the HbA1c concentration in the patient sample. Estimated Average Glucose 91 mg/dL [facility] Comment:eAG = Estimated ave rage glucose which is %A1C expressed asaverage glucose, using the formula of the Y4E-BverhekRdlsjit Glucose study (ADAG), Diabetes Care, Vol.31,#8,Feb. 2007 04/27/2025 3:02 PM EDT 04/27/2025 3:17 PM EDT us Generic External Data Provider LAB BLOOD ORDERAB LES Final Result [facility] [address] [place] [phone] * (ABNORMAL) CBC auto differential (04/27/2025 3:02 PM EDT) White Blood Count 5.0 4.8 - 10.8 X10*3/uL [facility] Red Blood Count 4.36 4.20 - 5.50 X10*6/uL [facility] Hemoglobin 10.5(L) 12.0 - 16.0 g/dl [facility] Hematocrit 34.1(L) 37.0 - 47.0 % [facility] Mean Corpuscular Volume 78.2(L) 80.0 - 98.0 fL [facility] Mean Corpuscular Hemoglobin 24.1(L) 27.0 - 33.0 pg [facility] Mean Corpuscular HGB Conc 30.8(L) 31.0 - 35.0 g/dl [facility] Red Cell Distribution Width 21.0(H) 11.0 - 16.0 % [facility] Platelet Count 184 160 - 400 X10*3/uL [facility] Mean Platelet Volume 10.0 9.4 - 12.3 fL [facility] Neutrophils Percent Auto 56.5 45 - 73 % [facility] Imm Gran Pct Auto 0.4 0.0 - 0.4 % [facility] Lymphocytes Percent Auto 31.1 20 - 40 % [facility] Monocytes Percent Auto 8.4 2 - 11 % [facility] Eosinophils Percent Auto 2.0 0 - 4 % [facility] Basophils Percent Auto 1.6 0 - 2 % [facility] NRBC Pct Auto 0.0 0.0 - 0.2 /100WBC [facility] Neutrophils Absolute Auto 2.8 2.0 - 8.3 x10*3/uL [facility] Imm Gran Abs Auto 0.02 0.00 - 0.03 X10*3/uL [facility] Lymphocytes Absolute Auto 1.6 1.2 - 4.9 X10*3/uL [facility] Monocytes Absolute Auto 0.4 0.1 - 1.2 X10*3/uL [facility] Eosinophils Absolute Auto 0.1 0.0 - 0.4 X10*3/uL [facility] Basophils Absolute Auto 0.1 0.0 - 0.2 X10*3/uL [facility] NRBC Abs Auto 0.000 0.0 - 0.012 X10*3/uL [facility] 04/27/2025 3:02 PM EDT 04/27/2025 3:17 PM EDT us Generic External Data Provider LAB BLOOD ORDERAB LES Final Result Performing Organization Address [facility] de Phone Number [facility] [address] [place] [phone] * (ABNORMAL) Reticulocyte Count (11/24/2024 11:23 AM EDT) Reticulocytes Absolute 0.055 0.026 - 0.095 X10*6/uL [facility] Immature Retic Fraction 19.5(H) 3.0 - 15.9 % [facility] Retic HGB Equivalent 21.1(L) 30.0 - 35.0 pg [facility] Reticulocyte Percent 1.2 0.5 - 1.8 % [facility] Blood Venous blood specimen / Unknown 11/24/2024 11:23 AM EDT 11/24/2024 2:17 PM EDT us Velia Hudson MD LAB BLOOD ORDERABLES Final Result Performing Organization Address [facility] Co de Phone Number [facility] [address] [place] [phone] documented in this encounter Visit Diagnoses Diagnosis Anemia, unspecified type- Primary documented in this encounter Additional Health Concerns Assessment Noted Time PHQ-9 Depression Total Score: 13 024 8:42 AM EDT documented as of this encounter Care Teams Multi Spindle Operator Relationship Specialty Start Date End Date Betsy Waldrop MD [address] [place] [address] PCP - General Family Medicine 08/30/22 Nalini REILLY 05/07/25 documented as of this encounter
--- OUTSIDE RECORDS SUMMARY | 2025-05-20 17:16 | XMS_ITS | Encounter Summary ---
Author Organization [facility] Address [address] [place] [address] Care Team Providers Care Pre Coder Name Role Phone Max Arizmendi Primary Care Provider [phone] Tammy Naylor LPCA Unavailable Anusha Molina LABORER [employer] Unavailable [phone] Rachele Ornelas COOK ROOM SUPERVISOR Unavailable Encounter Details Date Type Department Care Team (Late st Contact Info) Description 10/27/2020 Prep for Surgery [facility] [address] [place] [phone] Ashley Piña MD [facility] [address] [facility] [address] [place] [address] Social History Tobacco Use Types Packs/Day Years [...] A/P d/w Dr. Bassem Piña MD PGY-3 [facility] MOBILE GAME ENGINEER (p) 10/27/20 12:01 PM Chief Complaint: [...] oz) M CS-LTranv LANI Comments: preeclampsia Past ORTHOTIST/PROSTHETIST History: Denies history of abnormal pap smear Denies history of STIs Past Medical History: Past Medical History: Diagnosis Date ??? Anxiety ??? Depressed ??? Disease of thyroid gland Past Surgical History: Past Surgical History: Procedure Laterality Date ??? SECTION ??? CHOLECYSTECTOMY ??? NC NJX DX/THER SBST INTRLMNR LMBR/SAC W/IMG GDN Right 03/22/2018 Procedure: IR Epidural Inject Steroid Lumbar/Sacral w/img; Surgeon: Rakesh Garvey MD; Location: [facility]; Service: Interventional Radiology Social History: Denies [...] tablet 3 ??? Blood Glucose Monitoring Suppl (Geosho) w/Device Kit USE TO TEST BLOOD GLUCOSE [...] by mouth daily. 14 packet 1 ??? Oiq-GxBmxr-IC-DHA ( MULTIVITAMIN PER STATE FORMULARY) tablet Take 1 tablet by mouth daily as directed. Dispense Brand per State Formulary. 30 tablet 11 ??? SUPPLY [facility] cradle. Length of need 6 [...] on filedocumented in this encounter Care Teams Pre Coder Relationship Specialty Start Date End Date Max Arizmendi [address] [place] [address] PCP - General 09/01/19 Tammy Naylor LPCA [address] [place] [address] Clinician Social Work 05/03/20 02/21/22 Anusha Molina APRN [address] [place] [address] Primary BH Attending Psychiatry, General 05/06/2002/22 Backer Rachele Lawrence LCSW [address] [place] [address] Rivet Driver Clinical Social Work 05/24/20 02/21/22 documented as of this encounter
--- OUTSIDE RECORDS SUMMARY | 2025-05-20 17:16 | XMS_ITS | Clinical Summary ---
Author Organization [facility] Address [address] [place] [address] Care Team Providers Care Sales Host Name Role Phone Max Arizmendi Primary Care Provider [phone] Allergies Active Allergy Reactions Criticality Noted Date [...] empty stomach. 90 tablet 1 2 Active Vtc-KtBqag-TF-DHA (Vitafol-One) 29-1-200 MG CapIndications:Esha haas is a [...] (09/30/2020): Added automatically from request for surgery [id number] Assessment & Plan (11/03/2020 10:48 AM EDT): [...] was recommended to per her provider at [facility] Assessment & Plan (08/30/2021 4:27 PM [...] past but not on meds since 2018. business and services instructor referral placed. DF Assessment & Plan (04/27/2020 [...] (03/22/2018): Added automatically from request for surgery [id number] Assessment & Plan (04/27/2020 4:24 PM EDT): Patient reports history of herniated disk and sciatica. Will have anesthesia consult later in . Lumbar radiculopathy 03/19/2018 020 Overview (03/22/2018): Added automatically from request for surgery [id number] Immunizations Immunization Administration Dates Next Due Influenza [...] test by nucleic acid amplification. Performed at [facility], [place], [place] License 0385 CLIA [id number] Blood specimen (specimen) Blood specimen / Unknown 09/29/2020 3:36 PM EDT 09/29/2020 6:22 PM EDT us Audrey Luevano MD LAB BLOOD ORDERABLES Marizol l Result [facility] * Hepatitis C Virus (HCV) Antibody (04/08/2020 11:00 AM EDT) Pathologist [facility] Hepatitis C Antibody 0.15 0.00 - 0.79 S/CO ratio [facility]OS[facility]ITAL [facility] Hepatitis C Antibody Interpretation Nonreactive Nonreactive [facility] Comment:Performed at [facility], [place], [place] License 0385 CLIA [id number] Blood specimen (specimen) Heel structure / Unknown 04/08/2020 11:00 AM EDT 04/08/2020 12:32 PM EDT us Rachele Cheung MD LAB BLOOD ORDERABLES Final Result [facility] from Last 3 Months or Most Recently Relevant to Health Maintenance Insurance [facility] Advance Directives * [...] 6:42 PM 06/28/2019 5:12 PM Care Teams Sales Host Relationship Specialty Start Date End Date Max Arizmendi [address] [place] [phone] PCP - General 09/01/19
--- OUTSIDE RECORDS SUMMARY | 2025-05-20 17:16 | XMS_ITS | Clinical Summary ---
Author Organization [facility] Address [address] [place] [address] Care Team Providers Care Account Supervisor Name Role Phone Unavailable Primary Care [...] Depression Screening 07/08/2024 COVID-19 Vaccine ( - 2024-2 6 season) 2025 Influenza Vaccine (#1) 2025 RSV [...]
--- OUTSIDE RECORDS SUMMARY | 2025-05-20 17:16 | XMS_ITS | Clinical Summary ---
Author Organization [employer] Address [address] [place] [address] Care Team Providers Care Special Education Director Name Role Phone Betsy Waldrop MD Primary Care Provider [phone] Allergies Active Allergy Reactions Criticality Noted Date [...] send to pain management Bipolar II disorder ([facility]) 05/13/2020 Overview (12/09/2023): ID: Yani is a [...] , [facility], Patient to [...] Center 10/10/2023 3:15 PM Betsy Waldrop MD [facility] Insomnia due to other mental disorder [...] Severe anxiety 09/10/2019 Smoker 09/10/2019 Morbid obesity ([facility]) 09/10/2019 Assessment & Plan (10/04/2022 5:01 PM EDT): Discussed calorie deficit, recommended reduction of 20-30% of maintenance calories; slasher sawyer referral offered. Recommended to decrease soda and [...] (08/30/2022): Added automatically from request for surgery [id number] Last Assessment & Plan: Continue diet control. Patient did not bring meter or log today. Seen by nutrition Gestational thrombocytopenia 09/01/2020 10/04/2022 Overview (10/03/2022): Plts 144 on 09/01/20 Needs repeat CBC next visit (10/06/20) Last Assessment & Plan: Plt 158 at last visit 10/27/20 Encounters Date Type Department Care Team Description 05/06/2025 Telephone [facility] [address] [place] [address] Betsy Waldrop MD FYI 05/06/2025 Orders Only GENERIC EXTERNAL DATA DEPARTMENT Provider, Generic External Data 05/03/2025 Orders Only [facility] [address] [place] [address] India Parsons CNP Lumbar back pain with radiculopathy affecting lower extremity (Primary Dx); Polyarthralgia 04/27/2025 Refill [facility] [address] [place] [address] India Parsons CNP Wheezing 03/09/2025 10:45 AM EDT Office Visit [facility] [address] [place] [address] India Parsons CNP Encounter for screening for malignant neoplasm of colon (Primary Dx); Encounter for physical examination; Acquired hypothyroidism; Iron deficiency anemia due to chronic blood loss; Polyarthralgia; Sinus congestion; Positive NORRIS (antinuclear antibody); Menorrhagia with regular cycle; Wheezing 03/09/2025 Travel 03/08/2025 Travel 03/05/2025 Telephone [facility] [address] [place] [address] Betsy Waldrop MD chart prep 03/01/2025 Patient Outreach [facility] [address] [place] [address] Betsy Waldrop MD Pre-visit Planning (SDOH negative, Tobacco screening positive. ) 02/18/2025 Telephone [facility] [address] [place] [address] Betsy Waldrop MD Lab Orders from Last 3 Months Immunizations Immunization Administration [...] Smear 02/03/2029 02/04/2024 Lipid Panel 03/12/2030 03/12/2025, 06/07/2023, 11/08/2022, Additional history exists DTaP/Tdap/Td Vaccines (3 [...] EDT Routine general medical examination at a [facility] TSH W/REFLEX TO FT4 Routine 02/23/2025 1 [...] 6 PM EDT 05/06/2025 2:13 PM EDT [facility] - 05/10/2025 4:51 PM EST ----- ------- Name: Yani Obrien Age/Sex: 45/F : 1980 Unit#: [id number] Attend Dr: Partha Kelsey MD Re05/06/25 Status: [facility] Location: [facility] Disch: ----- ------- SPEC : [id number] RECD: 05/06/25 STATUS: MINDY TAPIAKenyetta NUM: [id number] ANA: 05/06/251236 SUBM DR: Partha Kelsey MD ENTERED: 05/06/25 SP TYPE: Surgical OTHR DR: India Parsons SIDE DOOR WORKER ORDERED: Gross Micro L3 Diagnosis Soft tissue, pannus, excision: Skin and subcutaneous lobulated adipose tissue without histopathologic abnormalities. Clinical History Excessive and redundant skin Microscopic Description Microscopic sections reviewed. Material Received Pannus Gross Description Received formalin 29.5 x 18.4 cm portion of robles skin red up to 3.7 cm of attached subcutaneous fat. There are several surgical clips along the deep surface. There is a central 2.4 x 1.7 cm defect. Also received within the container is a 3.2 x 2.5 x 1.1 cm portion of adipose tissue with a 1.2 x 1.1 cm attached portion of skin. Sectioning shows no gross abnormalities. Gas Engine Operator sections, including skin are submitted in cassettes A1. (RJD) IHC S/NG Disclaimer NOTE: Unless otherwise stated, all tissue is formalin-fixed and paraffin-embedded. Some or all of the immunohistochemical tests reported herein may have been developed and their performance characteristics determined by [facility]. They have not been cleared or approved by the U.S. Food and Drug Administration (FDA). However, the FDA has determined that such clearance or approval is not necessary. This laboratory is certified under the Clinical Laboratory Improvement Amendments of 1988 (CLIA) as qualified to perform high complexity clinical laboratory testing. Copies To: Partha Kelsey MD [facility] [address] [place] [place] [id number] CONTINUED ON NEXT PAGE ----- ------- Name: Yani Obrien Age/Sex: 45/F : 1980 Unit#: [id number] Attend Dr: Partha Kelsey MD Re05/06/25 Status: [facility] Location: [facility] Disch: ----- ------- SPEC : [id number] RECD: 05/06/25 STATUS: MINDY RAI NUM: [id number] ANA: 05/06/[address] [facility] [address]: Partha Kelsey MD ENTERED: 05/06/25 SP TYPE: Surgical OTHR DR: India Parsons NP ORDERED: Gross Micro L3 Copies To: (Continued) India Parsons NP [facility] [address] [place] [address] ----- ------- Signed (signature on file) Ana Anthony MD 05/10/25 1938 ----- ------- END OF REPORT Generic External Data Provider LAB CYTOLOGY ORDE RABLES Final Result Performing Organization Address [facility] Co de Phone Number [facility] [address] [place] [phone] * HCG, Qualitative, Urine (05/06/2025 8:11 AM EDT) Urine NEGATIVE NEGATIVE [facility] Comment:This test was develo ped to detect early . Falsenegative results may occur after the 5th - 7th week ofpregnancy when using this test method. If clinicallyindicated, consider a serum hCG. 05/06/2025 8:11 AM EDT 05/06/2025 8:21 AM EDT Generic External Data Provider LAB URINE ORDERAB LES Final Result Performing Organization Address [facility] Co de Phone Number [facility] [address] [place] [address] [phone] * (ABNORMAL) CBC auto differential (04/27/2025 3:02 PM EDT) Only the most recent of2 resultswithin the time period is included. White Blood Count 5.0 4.8 - 10.8 X10*3/uL [facility] Red Blood Count 4.36 4.20 - 5.50 X10*6/uL [facility] Hemoglobin 10.5(L) 12.0 - 16.0 g/dl [facility] Hematocrit 34.1(L) 37.0 - 47.0 % [facility] Mean Corpuscular Volume 78.2(L) 80.0 - 98.0 fL [facility] Mean Corpuscular Hemoglobin 24.1(L) 27.0 - 33.0 pg [facility] Mean Corpuscular HGB Conc 30.8(L) 31.0 - 35.0 g/dl [facility] Red Cell Distribution Width 21.0(H) 11.0 - 16.0 % [facility] Platelet Count 184 160 - 400 X10*3/uL [facility] Mean Platelet Volume 10.0 9.4 - 12.3 fL [facility] Neutrophils Percent Auto 56.5 45 - 73 % [facility] Imm Gran Pct Auto 0.4 0.0 - 0.4 % [facility] Lymphocytes Percent Auto 31.1 20 - 40 % [facility] Monocytes Percent Auto 8.4 2 - 11 % [facility] Eosinophils Percent Auto 2.0 0 - 4 % [facility] Basophils Percent Auto 1.6 0 - 2 % [facility] NRBC Pct Auto 0.0 0.0 - 0.2 /100WBC [facility] Neutrophils Absolute Auto 2.8 2.0 - 8.3 x10*3/uL [facility] Imm Gran Abs Auto 0.02 0.00 - 0.03 X10*3/uL [facility] Lymphocytes Absolute Auto 1.6 1.2 - 4.9 X10*3/uL [facility] Monocytes Absolute Auto 0.4 0.1 - 1.2 X10*3/uL [facility] Eosinophils Absolute Auto 0.1 0.0 - 0.4 X10*3/uL [facility] Basophils Absolute Auto 0.1 0.0 - 0.2 X10*3/uL [facility] NRBC Abs Auto 0.000 0.0 - 0.012 X10*3/uL [facility] 04/27/2025 3:02 PM EDT 04/27/2025 3:17 PM EDT Generic External Data Provider LAB BLOOD ORDERAB LES Final Result Performing Organization Address [facility] de Phone Number [facility] [address] [place] [phone] * Zinc (04/27/2025 3:02 PM EDT) Pathologist [facility] Zinc 65 60 - 130 mcg/dL [facility] Comment:This test was develo ped and its analytical performancecharacteristics have been determined by [employer] [place], [place]. It hasnot been cleared or approved by the U.S. Food and DrugAdministration. This assay has been validated pursuantto the CLIA regulations and is used for clinicalpurposes.THIS TEST WAS PERFORMED AT:[employer]/[id number] [place] [address]MJHNJSNCOLIN GALVAN MD,PHD 04/27/2025 3:02 PM EDT 04/27/2025 3:17 PM EDT Generic External Data Provider LAB BLOOD ORDERAB LES Final Result Performing Organization Address [facility] Co de Phone Number [facility] [address] [place] [phone] * Type and screen (04/27/2025 3:02 PM EDT) Blood Type BP [facility] Antibody Screen NEGATIVE [facility] 04/27/2025 3:02 PM EDT 04/27/2025 3:29 PM EDT Narrative [facility] - 04/27/2025 4:12 PM EDT Spec expiration changed by NISHANT on 04/27/25Reason: PAT SSSWITNESSED BY AGUSTIN.NURSING:Call Blood Bank (ext. [phone]) to band patient on admission.Type and Screen in effect until 2300 on 05/06/25 us Generic External Data Provider LAB BLOOD BANK TE ST ORDERABLES Final Result Performing Organization Address City/[facility]/ZIP Co de Phone Number [facility] [address] [place] [phone] * Hemoglobin A1c (04/27/2025 3:02 PM EDT) Hemoglobin A1c 4.8 <6.0 % [facility] Comment:Hemoglobin A1C Refer ence Range Adults: 4.8 - 6.0 % Non diabetic: < 6.0 % Goal: < 7.0 %Additional Action Suggested: > 8.0 %Note: Hemoglobin A1c results are invalid for patients with abnormal amounts of HbF. Blood transfusions may impact the HbA1c concentration in the patient sample. Estimated Average Glucose 91 mg/dL [facility] Comment:eAG = Estimated ave rage glucose which is %A1C expressed asaverage glucose, using the formula of the R8H-TqhaeleDqrxuue Glucose study (ADAG), Diabetes Care, Vol.31,#8,Feb. 2007 04/27/2025 3:02 PM EDT 04/27/2025 3:17 PM EDT us Generic External Data Provider LAB BLOOD ORDERAB LES Final Result Performing Organization Address [facility]/ZIP Co de Phone Number [facility] [address] [place] [phone] * Vitamin B12 (04/27/2025 3:02 PM EDT) Vitamin B12 466 200 - 900 pg/mL [facility] Comment:NORMAL 200-900 PG/ML INDETERMINATE 160-199 PG/ML DEFICIENT < 160 PG/ML 04/27/2025 3:02 PM EDT 04/27/2025 3:17 PM EDT Generic External Data Provider LAB BLOOD ORDERAB LES Final Result Performing Organization Address [facility] Co de Phone Number [facility] [address] [place] [phone] * Hepatitis B surface antigen, EIA (03/12/2025 12:56 PM EDT) [facility] Hepatitis B Surface Ag Negative Negative [facility] Blood Venous blood specimen / Unknown 03/12/2025 12:56 PM EDT 03/12/2025 2:21 PM EDT [facility] LAB BLOOD ORDERABLES Marizol l Result Performing Organization Address [facility] Co de Phone Number [facility] [address] [place] [phone] * Hepatitis B Core Antibody, Total (03/12/2025 12:56 PM EDT) [facility] Hepatitis B Core Antibody Nonreactive Nonreactive [facility] Blood Venous blood specimen / Unknown 03/12/2025 12:56 PM EDT 03/12/2025 2:21 PM EDT [facility] LAB BLOOD ORDERABLES Marizol l Result Performing Organization Address [facility] de Phone Number [facility] [address] [place] [phone] * Hepatitis B Surface Antibody, Qualitative (03/12/2025 12:56 PM EDT) [facility] ~Hepatitis B Surface Antibody REACTIVE Nonreactive [facility] Comment:REACTIVE: > 11.99 mI U/mL Blood Venous blood specimen / Unknown 03/12/2025 12:56 PM EDT 03/12/2025 2:21 PM EDT [facility] LAB BLOOD ORDERABLES Marizol l Result Performing Organization Address City/[facility]/ZIP Co de Phone Number [facility] [address] [place] [phone] * Lipid Panel, Standard (03/12/2025 12:56 PM EDT) Triglycerides 32 <150 mg/dL [facility] Comment:Desirable Triglyceri de: less than 150 mg/dLBorderline High Triglyceride 150-199 mg/dLHigh Triglyceride: 200-499 mg/dLVery High Triglyceride: greater than or equal to 5OO mg/dL Cholesterol 156 <200 mg/dL [facility] Comment:Desirable Cholestero l: less than 200 mg/dLBorderline High Cholesterol: 200-239 mg/dLHigh Cholesterol: greater than 239 mg/dL LDL Cholesterol Calculated 87 <100 mg/dL [facility] Comment:Desirable LDL: less than 100 mg/dLNear Optimal/Above Optimal LDL: 110- 129 mg/dLBorderline High LDL: 130-159 mg/dLHigh LDL: 160-189 mg/dLVery High LDL: greater than or equal to 190 mg/dL HDL Cholesterol 63 >40 mg/dL [facility] Comment:Desirable HDL: great er than 40 mg/dL Note: This HDL assay may give artificially low results in patients with liver disease. Blood Venous blood specimen / Unknown 03/12/2025 12:56 PM EDT 03/12/2025 2:21 PM EDT [facility] LAB BLOOD ORDERABLES Marizol l Result Performing Organization Address City/[facility]/ZIP Co de Phone Number [facility] [address] [place] [phone] * (ABNORMAL) Comprehensive Metabolic Panel (03/12/2025 12:56 PM EDT) Pathologist [facility] Sodium 139 135 - 145 mmol/L [facility] Potassium 3.7 3.3 - 5.1 mmol/L [facility] Chloride 107 96 - 108 mmol/L [facility] Carbon Dioxide 25 22 - 29 mmol/L [facility] Anion Gap 11(L) 12 - 20 [facility] Urea Nitrogen (BUN) 11 9 - 16 mg/dL [facility] Creatinine, Serum 0.70 0.5 - 1.4 mg/dL [facility] Estimated Glomerular Filt Rate >60 [facility] Comment:Chronic Kidney Disea se: Estimated GFR < 60 mL/min/1.14y5Kecqmq Kidney Disease: Estimated GFR < 15 mL/min/1.73m2 Glucose 78 60 - 115 mg/dL [facility] Calcium 8.8 8.4 - 10.2 mg/dL [facility] Bilirubin, Total 0.4 0.0 - 1.0 mg/dL [facility] Aspartate Amino Transferase 25 5 - 31 U/L [facility] Alanine Aminotransferase 16 0 - 31 U/L [facility] Total Protein 6.8 6.5 - 8.0 g/dL [facility] Albumin Level 4.2 3.5 - 5.0 g/dL [facility] Alkaline Phosphatase 43 39 - 117 U/L [facility] Blood Venous blood specimen / Unknown 03/12/2025 12:56 PM EDT 03/12/2025 2:21 PM EDT [facility] LAB BLOOD ORDERABLES Marizol l Result [facility] [address] [place] [phone] * T-SPOT??.TB (02/23/2025 10:31 AM EDT) Pathologist [facility] T Spot TB Negative Negative [facility] Comment:A negative test resu lt [...] as aquantitative test. TS PANEL A 3 [facility] TS PANEL B 0 [facility] Negative Control Passed [facility] Positive Control Passed [facility] Comment:For additional infor emerald, please refer [email or web address](This link is being provided for informational/educational purposes only.)THIS TEST WAS PERFORMED AT:[employer] [id number] [place] [address]AFCYSQG W. MASON,MD,PHD 02/23/2025 10:3 1 AM EDT 02/23/2025 1:55 PM EDT us Betsy Waldrop MD LAB BLOOD ORDERABLES Final Re sult [facility] [address] [place] [phone] * TSH W/Reflex to FT4 (02/23/2025 10:31 AM EDT) TSH reflex Free T4 2.71 0.32 - 4.0 uIU/mL [facility] Blood Venous blood specimen / Unknown 02/23/2025 10:31 AM EDT 02/23/2025 1:55 PM EDT us Betsy Waldrop MD LAB BLOOD ORDERABLES Final Re sult Performing Organization Address [facility]/ZIP Co de Phone Number [facility] [address] [place] [phone] * Hepatitis C Antibody with Reflex to HCV, RNA, Quantitative, Real-Time PCR (05/26/2024 3:54 PM EST) Hepatitis C Antibody Nonreactive Nonreactive [facility] Comment:Antibodies to HCV no t detected; does not exclude early acuteHCV infection. Blood Venous blood specimen / Unknown 05/26/2024 3:54 PM EST 05/26/2024 3:54 PM EST Result [facility] Betsy Waldrop MD LAB BLOOD ORDERABLES Final Re sult Performing Organization Address [facility] Co de Phone Number [facility] [address] [place] [address] [phone] * HIV-1/2 Antigen and Antibodies, Fourth Generation, with Reflexes (05/26/2024 3:54 PM EST) HIV AB/AG Nonreactive Nonreactive [facility] Comment:HIV-1 p24 Ag and/or HIV-1/HIV-2 Ab not detected.A test result that is nonreactive does not exclude thepossibility of exposure to or infection with HIV-1 and/orHIV-2. Nonreactive results in this assay for individualswith prior exposure to HIV-1 and/or HIV-2 may be due toantigen and antibody levels that are below the limit ofdetection of this assay.The [employer] HIV Ag/Ab Combo assay result andsupplemental assay results should be interpreted inconjunction with the patient's clinical presentation,history and other laboratory results. If the results areinconsistent with clinical evidence, additional testing issuggested to confirm the result. Blood Venous blood specimen / Unknown 05/26/2024 3:54 PM EST 05/26/2024 3:54 PM EST Result [facility] Betsy Waldrop MD LAB BLOOD ORDERABLES Final Re sult [facility] [address] [place] [phone] [phone] * Pap Smear (02/04/2024 12:00 AM EDT) SOURCE: SEE NOTE [facility] Comment:None given Report Status: [facility] Clinical Information: SEE NOTE [facility] Comment:None given LMP: SEE NOTE [facility] Comment:NONE GIVEN Prev. PAP: SEE NOTE [facility] Comment:NONE GIVEN Prev. BX: SEE NOTE [facility] Comment:NONE GIVEN Statement Of Adequacy: SEE NOTE [facility] Comment:Satisfactory for gavin luation.Endocervical/transformation zone componentpresent. General Categorization: [facility] Interpretation/Result: SEE NOTE [facility] Comment:Cytology Results: Ne gative for intraepitheliallesion or malignancy. Cytology Comment SEE NOTE [facility] Comment:This Pap test has be en evaluated with computerassisted technology. Synchro Assembler: SEE NOTE [facility] Comment:YP, CT(ASCP)CT scree jessica location: [place] [address] Review Synchro Assembler: SEE NOTE [facility] Comment:SL, CT(ASCP)CT scree jessica location: [place] [address] Pathologist [facility] PAP Infection [facility] See Note SEE NOTE [facility] Comment:EXPLANATORY NOTE:The Pap is a screening test for cervical cancer. It isnot a diagnostic test and is subject to false negativeand false positive results. It is most reliable when asatisfactory sample, regularly obtained, is submittedwith relevant clinical findings and history, and whenthe Pap result is evaluated along with historic andcurrent clinical information.THIS TEST WAS PERFORMED AT:[employer] [address] [address]IZXISPERLA VALLE MD Pap Vial Vaginal structure / Unknown 02/04/2024 02/04/2024 Narrative [facility] - 02/07/2024 10:36 AM EDT SEE SCANNED RESULTS IN EMR us Betsy Waldrop MD LAB PATHOLOGY ORDERABLES Marizol benitez Result [facility] [address] [place] [phone] [phone] * HPV mRNA E6/E7 w/Reflex to HPV Genotypes 16, 18/45 (02/04/2024 12:00 AM EDT) HPV nRNA E6/E7 NOT DETECTED [facility] Comment:Methodology: Transcr iption-Mediated AmplificationThis assay detects E6/E7 viral messenger RNA (mRNA) from 14high-risk HPV types(16,18,31,33,35,39,45,51,52,56,58,59,66,68).Cervical sources are required for HPV testing.If a vaginal source from a patient who has had atotal hysterectomy with removal of cervix wassubmitted, please contact the testing laboratoryfor alternative testing options.For additional information, please refer [email or web address]/[email or web address](This link if provided for information/educational purposes only.)THIS TEST PERFORMED AT:[employer] [address] [phone] 1986LABORATORY DIRECTOR: PERLA VALLE MD HPV mRNA E6/E7 [facility] HPV [facility] HPV 18/45 RNA [facility] Vaginal Fluid Cervix uteri structure / Unknown 02/04/2024 02/04/2024 Narrative [facility] - 02/07/2024 10:36 AM EDT SEE SCANNED RESULTS IN EMRCollection Date: [id number] by: FIDE Carr: Cervix us Betsy Waldrop MD LAB CYTOLOGY ORDERABLES Final Result [facility] [address] [place] [phone] from Last 3 Months or Most Recently Relevant to Health Maintenance [place] [address] [place] [address] C3 Care Teams Special Education Director Relationship Specialty Start Date End Date Betsy Waldrop MD [address] [place] [phone] PCP - General Family Medicine 08/30/22 Nalini LANCASTERA 05/07/25
--- OUTSIDE RECORDS SUMMARY | 2025-05-20 17:16 | XMS_ITS | Clinical Summary ---
Author Organization [facility] Address [address] [place] [address] Care Team Providers Care Pier Runner Name Role Phone Unavailable Primary Care Provider [...] with Friends and Family Never 09/10/2019 Attends [employer] Never 09/09 Active Member of Clubs [...] this topic ObrienVeroniqueYani Personal/Family Self 1980 [address] [address] Obrien,Yani [facility] Self 1980 [address] [address]
--- OUTSIDE RECORDS SUMMARY | 2025-05-20 17:16 | XMS_ITS | Encounter Summary ---
Author Organization [employer] Address [address] [facility] 7t [place] [address] Care Team Providers Care Sliver Cutter Name Role Phone Betsy Waldrop MD Primary Care Provider [phone] Encounter Details Date Type Department Care Team (Late st Contact Info) Description 12/04/2022 Abstract [facility] Information Management [address] [place] [address] Betsy Waldrop MD [address] [place] [address] Social History Tobacco Use Types Packs/Day Years [...] documented as of this encounter Care Teams Sliver Cutter Relationship Specialty Start Date End Date Betsy Waldrop MD [address] [place] [address] PCP - General Family Medicine 08/30/22 Nalini A 05/07/25 documented as of this encounter
--- OUTSIDE RECORDS SUMMARY | 2025-05-20 17:16 | XMS_ITS | Encounter Summary ---
Author Organization [employer] Address [address] [facility] [address] 7t [place] [address] Care Team Providers Care Manager Chemical Name Role Phone Betsy Waldrop MD Primary Care Provider [phone] Encounter Details Date Type Department Care Team (Late st Contact Info) Description 09/26/2023 Telephone [facility] MEDICINE [address] [place] [address] Betsy Waldrop MD [address] [place] [address] Social History Tobacco Use Types Packs/Day Years [...] one being able to take her to [facility]. * Telephone Encounter - Lorena Katz - [...] documented as of this encounter Care Teams Manager Chemical Relationship Specialty Start Date End Date Betsy Waldrop MD [address] [place] [address] PCP - General Family Medicine [facility] documented as of this encounter
== END 2025-05-20 14:35 | disposition home or self-care (01) ==
LOC: HO.HBS 13:53
PROVIDERS: Visit Provider Nurse Practitioner
DX: Z98.84 Bariatric surgery status (principal); Z98.890 Other specified postprocedural states
CPT/HCPCS: 99024

== ENCOUNTER → 2025-05-20 13:53 | Outpatient (BNVA) | payer MEDICAID, SELFPAY | PROVIDERS: Visit Provider Nurse Practitioner | DX: Z98.84 Bariatric surgery status (principal); Z98.890 Other specified postprocedural states | CPT/HCPCS: 99212 ==

== ENCOUNTER 2025-05-26 15:10 | Outpatient (AMB) | payer MEDICAID, SELFPAY ==
[2025-05-26 15:45] VITALS: BP 104/66; PULSE 90; TEMP 36.7; O2SAT 98
--- NOTE | 2025-05-26 15:45 | MHC.OFFVISWM ---
VS Expanded 05/26/25 15:45 BP 104/66 Blood Pressure Location Rt brachial Blood Pressure Position Sitting Pulse 90 Pulse Source Pulse Oximeter Temp 98.1 F Temperature Source Temporal Artery Scan Pulse Oximetry 98 Oxygen Delivery Method Room Air Intake Visit Reasons: (OV) s/p Panniculectomy 05/06/25 Allergies diphenhydramine (From Benadryl) Adverse Reaction (Mild, Verified 05/26/25 15:49) palpitations/anxiety HPI Comments Details: 45 yo woman presents s/p panniculectomy 05/06/2025. Drain output 20-25cc per day umbilical pain around the reconstructed umbilicus independent dsg changes daily, VNA comes a few times a week toddler at home keeps her busy compliant with meal plan, abd binder, and ABX PFSH Medical History Postgastrectomy malabsorption Depression Bipolar disorder Iron deficiency anemia PONV (postoperative nausea and vomiting) Migraines Arthritis Lico's disease Anxiety Sciatica History of herniated intervertebral disc Hyperlipidemia DJD (degenerative joint disease) GERD (gastroesophageal reflux disease) Surgical History History of sleeve gastrectomy H/O Spinal surgery Hx of section Hx of cholecystectomy Family History Mother Diabetes Hypertension Father No problems noted. Son No problems noted. Son No problems noted. Daughter No problems noted. Social History Household Members: Family Housing: Apartment Are you a primary certified social workers in health care to a significant other at home: No Do you presently have visiting nurse or other home services: No Alcohol intake: never Patient Tobacco Use Status: Former Tobacco user Tobacco use type: Cigarette Cigarettes Per Day: 4 Years Smoked: 30 e-Cigarette/Vaping Use: Currently Using service: No Physical Exam Vital Signs: Last Vital Signs Temp 98.1 F 05/26/25 15:45 Pulse 90 05/26/25 15:45 BP 104/66 05/26/25 15:45 Pulse Ox 98 05/26/25 15:45 Oxygen Delivery Method Room Air 05/26/25 15:45 Const General: cooperative, healthy appearing, comfortable and no acute distress Orientation/consciousness: patient oriented x3 GI Other: abd soft, non tender, non distended. panniculectomy incision healing well without S&S of infection or drainage. Drain with serosanguinous output Neuro General: patient oriented x3 Assessment & Plan Assessment & Plan (1) S/P panniculectomy: Code(s): Z98.890 - Other specified postprocedural states Category: Surgical (2) S/P laparoscopic sleeve gastrectomy: Code(s): Z98.84 - Bariatric surgery status Category: Surgical Plan: Continue high protein diet. Continue to focus on not skipping meals due to her busy lifestyle with her toddler, to ensure she is getting adequate protein intake. Drain will be removed after consistently 20 mL or less daily.? Continue ABX as prescribed Abdominal binder at all times except for incision care x 1 month?MINIMUM. Longer if there are concerns No walking outside or exercise for 6 weeks minimum. Walking in the house okay. Assistance getting up for 4 weeks minimum.?No lifting greater than?10 pounds x 2 months and no abdominal exercises x 3 months. [address]?until drain out.? Follow up: 1 week, as scheduled Plan Continue high protein diet. Continue to focus on not skipping meals due to her busy lifestyle with her toddler, to ensure she is getting adequate protein intake. Drain will be removed after consistently 20 mL or less daily.? Continue ABX as prescribed Abdominal binder at all times except for incision care x 1 month?MINIMUM. Longer if there are concerns No walking outside or exercise for 6 weeks minimum. Walking in the house okay. Assistance getting up for 4 weeks minimum.?No lifting greater than?10 pounds x 2 months and no abdominal exercises x 3 months. No driving?until drain out.? Follow up: 1 week, as scheduled
--- OUTSIDE RECORDS SUMMARY | 2025-05-27 03:45 | XMS_ITS | Encounter Summary ---
Author Organization [employer] Address [address] [facility] 7t [place] [address] Care Team Providers Care Supervisor Home Restoration Service Name Role Phone Betsy Waldrop MD Primary Care Provider [phone] Encounter Details Date Type Department Care Team (Late st Contact Info) Description 11/19/2024 Orders Only [facility] [address] [place], [place] [phone] Velia Hudson MD [address] [place] [address] Anemia, unspecified type (Primary Dx) Social History [...] as of this encounter Plan of Treatment Upcoming Encounters Date Type Department Care Team (Late st Contact Info) Description 10/01/2025 2:00 PM EDT Office Visit [facility] OPTOMETRY [address] [place] [address] TarkaRachele, OD [address] [place] [address] Pending Results Name Type Priority Associated Diagnoses [...] EDT) Zinc 65 60 - 130 mcg/dL [facility] Comment:This test was develo ped and its analytical performancecharacteristics have been determined by [employer] [place], [place]. It hasnot been cleared or approved by the U.S. Food and DrugAdministration. This assay has been validated pursuantto the CLIA regulations and is used for clinicalpurposes.THIS TEST WAS PERFORMED AT:[place] [place] [address]SYCJMXK W. MASON,MD,PHD 04/27/2025 3:0 2 PM EDT 04/27/2025 3:17 PM EDT us Generic External Data Provider LAB BLOOD ORDERAB LES Final Result [facility] [address] [place] [phone] * Vitamin B12 (04/27/2025 3:02 PM EDT) Vitamin B12 466 200 - 900 pg/mL [facility] Comment:NORMAL 200-900 PG/ML INDETERMINATE 160-199 PG/ML DEFICIENT < 160 PG/ML 04/27/2025 3:02 PM EDT 04/27/2025 3:17 PM EDT Generic External Data Provider LAB BLOOD ORDERAB LES Final Result Performing Organization Address [facility] de Phone Number [facility] [address] [place] [phone] * Type and screen (04/27/2025 3:02 PM EDT) Blood Type BP [facility] Antibody Screen NEGATIVE [facility] 04/27/2025 3:02 PM EDT 04/27/2025 3:29 PM EDT Narrative [facility] - 04/27/2025 4:12 PM EDT Spec expiration changed by NISHANT on 04/27/25Reason: PAT SSSWITNESSED BY AGUSTIN.NURSING:Call Blood Bank (ext. [phone]) to band patient on admission.Type and Screen in effect until 2300 on 05/06/25 Generic External Data Provider LAB BLOOD BANK TE ST ORDERABLES Final Result Performing Organization Address [facility] Phone Number [facility] [address] [place] [address] [phone] * Hemoglobin A1c (04/27/2025 3:02 PM EDT) Hemoglobin A1c 4.8 <6.0 % [facility] Comment:Hemoglobin A1C Refer ence Range Adults: 4.8 - 6.0 % Non diabetic: < 6.0 % Goal: < 7.0 %Additional Action Suggested: > 8.0 %Note: Hemoglobin A1c results are invalid for patients with abnormal amounts of HbF. Blood transfusions may impact the HbA1c concentration in the patient sample. Estimated Average Glucose 91 mg/dL [facility] Comment:eAG = Estimated ave rage glucose which is %A1C expressed asaverage glucose, using the formula of the F0W-SmxdtuvOexczdb Glucose study (ADAG), Diabetes Care, Vol.31,#8,2007 04/27/2025 3:02 PM EDT 04/27/2025 3:17 PM EDT us Generic External Data Provider LAB BLOOD ORDERAB LES Final Result [facility] [address] [place] [address] [phone] * (ABNORMAL) CBC auto differential (04/27/2025 3:02 PM EDT) White Blood Count 5.0 4.8 - 10.8 X10*3/uL [facility] Red Blood Count 4.36 4.20 - 5.50 X10*6/uL [facility] Hemoglobin 10.5(L) 12.0 - 16.0 g/dl [facility] Hematocrit 34.1(L) 37.0 - 47.0 % [facility] Mean Corpuscular Volume 78.2(L) 80.0 - 98.0 fL [facility] Mean Corpuscular Hemoglobin 24.1(L) 27.0 - 33.0 pg [facility] Mean Corpuscular HGB Conc 30.8(L) 31.0 - 35.0 g/dl [facility] Red Cell Distribution Width 21.0(H) 11.0 - 16.0 % [facility] Platelet Count 184 160 - 400 X10*3/uL [facility] Mean Platelet Volume 10.0 9.4 - 12.3 fL [facility] Neutrophils Percent Auto 56.5 45 - 73 % [facility] Imm Gran Pct Auto 0.4 0.0 - 0.4 % [facility] Lymphocytes Percent Auto 31.1 20 - 40 % [facility] Monocytes Percent Auto 8.4 2 - 11 % [facility] Eosinophils Percent Auto 2.0 0 - 4 % [facility] Basophils Percent Auto 1.6 0 - 2 % [facility] NRBC Pct Auto 0.0 0.0 - 0.2 /100WBC [facility] Neutrophils Absolute Auto 2.8 2.0 - 8.3 x10*3/uL [facility] Imm Gran Abs Auto 0.02 0.00 - 0.03 X10*3/uL [facility] Lymphocytes Absolute Auto 1.6 1.2 - 4.9 X10*3/uL [facility] Monocytes Absolute Auto 0.4 0.1 - 1.2 X10*3/uL [facility] Eosinophils Absolute Auto 0.1 0.0 - 0.4 X10*3/uL [facility] Basophils Absolute Auto 0.1 0.0 - 0.2 X10*3/uL [facility] NRBC Abs Auto 0.000 0.0 - 0.012 X10*3/uL [facility] 04/27/2025 3:02 PM EDT 04/27/2025 3:17 PM EDT us Generic External Data Provider LAB BLOOD ORDERAB LES Final Result Performing Organization Address City/[facility]/ZIP Co de Phone Number [facility] [address] [place] [address] [phone] * (ABNORMAL) Reticulocyte Count (11/24/2024 11:23 AM EDT) Reticulocytes Absolute 0.055 0.026 - 0.095 X10*6/uL [facility] Immature Retic Fraction 19.5(H) 3.0 - 15.9 % [facility] Retic HGB Equivalent 21.1(L) 30.0 - 35.0 pg [facility] Reticulocyte Percent 1.2 0.5 - 1.8 % [facility] Blood Venous blood specimen / Unknown 11/24/2024 11:23 AM EDT 11/24/2024 2:17 PM EDT us Velia Hudson MD LAB BLOOD ORDERABLES Final Result Performing Organization Address City/[facility]/ZIP Co de Phone Number [facility] [address] [place] [phone] documented in this encounter Visit Diagnoses Diagnosis Anemia, unspecified type- Primary documented in this encounter Additional Health Concerns Assessment Noted Time PHQ-9 Depression Total Score: 13 024 8:42 AM EDT documented as of this encounter Care Teams Supervisor Home Restoration Service Relationship Specialty Start Date End Date Betsy Waldrop MD [address] [place] [address] PCP - General Family Medicine 08/30/22 [place] [facility] 05/07/25 documented as of this encounter
--- OUTSIDE RECORDS SUMMARY | 2025-05-27 03:45 | XMS_ITS | Encounter Summary ---
Author Organization [facility] Address [address] [place] [address] Care Team Providers Care Railroad Car Repairman Name Role Phone Max Arizmendi Primary Care Provider Tammy Naylor LPCA Unavailable Anusha Molina SALES AND SERVICE TECHNICIAN Unavailable [phone] Rachele Ornelas SALT MACHINE OPERATOR Unavailable [phone] Encounter Details Date Type Department Care Team (Late st Contact Info) Description 11/25/2020 Scanned Document [facility] [address] [place] [address] [phone] Josie Bingham MD [address] [place] [address] Social History Tobacco Use Types Packs/Day Years [...] on filedocumented in this encounter Care Teams Railroad Car Repairman Relationship Specialty Start Date End Date Ugo Destinycheng [address] [place] [address] PCP - General 09/01/19 Tammy Naylor LPCA [address] [place] [address] Clinician Social Work 05/03/20 02/21/22 Anusha Molina APRN [address] [place] [address] Primary BH Attending Psychiatry, General 05/06/2002/22 Rachele Ornelas LCSW [address] [place] [address] Supervisor Landscape Clinical Social Work 05/24/20 02/21/22 documented as of this encounter
--- OUTSIDE RECORDS SUMMARY | 2025-05-27 03:45 | XMS_ITS | Clinical Summary ---
Author Organization [facility] Address [address] [place] [address] Care Team Providers Care Traffic Sign Supervisor Name Role Phone Unavailable Primary Care [...] with Friends and Family Never 09/10/2019 Attends [employer] Services Never 09/09 Active Member of Clubs [...] this topic ObrienVeroniqueYani Personal/Family Self [address] [address] Obrien,Yani Behavioral Health Self [address] [address]
--- OUTSIDE RECORDS SUMMARY | 2025-05-27 03:45 | XMS_ITS | Encounter Summary ---
Author Organization [facility] Address [address] [place] [address] Care Team Providers Care Director Instructional Material Name Role Phone Max Arizmendi Primary Care Provider [phone] Tammy Naylor LPCA Unavailable Anusha Molina PHYSICIAN SURGEON Unavailable [phone] Rachele Ornelas PILOT BOAT DECKHAND Unavailable Encounter Details Date Type Department Care Team (Late st Contact Info) Description 03/24/2020 [facility] [address] [facility] [address] [place] [phone] Dolly Enamorado MD [address] [facility] [address] [place] [address] Hypothyroidism (acquired) (Primary Dx) Social History Tobacco [...] Performing Organization Information: Site ID: [id number] Name: [facility] Address: [address] [place] [address], [place] [address] Director: Deanne Mcdonough MD us Dolly Enamorado MD LAB BLOOD ORDERABLES Final R esult [facility] [address] [place] [address], [place] [address] * T4, Free (04/15/2020 2:52 PM EDT) T4, Free 1.3 0.8 - 1.8 ng/dL [facility] Blood specimen (specimen) Heel structure / Unknown 04/15/2020 2:52 PM EDT 04/15/2020 2:52 PM EDT Narrative [facility] - 04/16/2020 3:40 AM EDT FASTING:NO FASTING: NO Resulting Agency Comment Performing Organization Information: Site ID: [id number] Name: [facility] Address: [address] [place] [address], [facility] [place] [place] [address] Director: Deanne Mcdonough MD Dolly Enamorado MD LAB BLOOD ORDERABLES Final R esult [facility] [address], [place] [address] documented in this encounter Visit Diagnoses Diagnosis Hypothyroidism (acquired)- Primary Unspecified hypothyroidism documented in this encounter Care Teams Director Instructional Material Relationship Specialty Start Date End Date Max Arizmendi [address] [place] [address] PCP - General 09/01/19 Tammy Naylor LPCA [address] [place] [address] Clinician Social Work 05/03/20 02/21/22 Anusha Molina APRN [address] [place] [address] Primary BH Attending Psychiatry, General 05/06/2002/22 Backer Rachele Lawrence LCSW [address] [place] [address] Surgical Services Assistant Clinical Social Work 05/24/20 02/21/22 documented as of this encounter
--- OUTSIDE RECORDS SUMMARY | 2025-05-27 03:45 | XMS_ITS | Encounter Summary ---
Author Organization [employer] Address [address] [facility] [address] 7t [place] [address] Care Team Providers Care Restaurant Busser Name Role Phone Besty Waldrop MD Primary Care Provider [phone] Reason for Visit * Reason Onset Date Comments FYI 05/06/2025 Encounter Details Date Type Department Care Team (Late st Contact Info) Description 05/06/2025 Telephone [facility] MEDICINE [address] [place] [address] Betsy Waldrop MD [address] [place] [address] FYI Social History Tobacco Use Types Packs/Day [...] encounter Miscellaneous Notes * Telephone Encounter - Aura Scott - 05/25/2025 1:03 PM EST .[facility] * Telephone Encounter - Jackson Irving - 05/06/2025 10:57 AM EDT Tc from Doreen REILLY stating pt is currently at [facility] for scheduled panniculectomy, they donot expect pcp to sign orders since they will most likely be signed by the surgeon. They just wanted pcp to be aware that they will be involved. documented in this encounter Plan of Treatment Upcoming Encounters Date Type Department Care Team (Late st Contact Info) Description 10/01/2025 2:00 PM EDT Office Visit [facility] OPTOMETRY [address] [place], [place] [phone] Rachele Arora, ROBERTO [address] [place] [address] documented as of this encounter Visit Diagnoses Not on filedocumented in this encounter Additional Health Concerns Assessment Noted Time PHQ-9 Depression Total Score: 2 03/09/20 25 11:01 AM EDT documented as of this encounter Care Teams Restaurant Busser Relationship Specialty Start Date End Date Betsy Waldrop MD [address] [place] [address] GABRIEL Gayle [address] PCP - General Family Medicine 08/30/22 Nalini REILLY 05/07/25 documented as of this encounter
--- OUTSIDE RECORDS SUMMARY | 2025-05-27 03:45 | XMS_ITS | Encounter Summary ---
Author Organization [employer] Address [address] [facility] 7t [place] [address] Care Team Providers Care Loading Machine Adjuster Name Role Phone Betsy Waldrop MD Primary Care Provider [phone] Reason for Referral * Consultation (Routine) - Closed Specialty Diagnoses / Procedures Referred By Fran nguyen Referred To Contact Physiatry Diagnoses Polyarthralgia Betsy Waldrop MD [address] [place] [address] Phone: tel: fax: Referral ID Status Reason Start Date Expiration Date V isits Requested Visits Authorized [id number] Closed Specialty Services Required 05/26/2025 05/26/2026 1 1 Reason for Visit * Reason Onset Date Comments insurance referral 05/25/2025 Encounter Details Date Type Department Care Team (Late st Contact Info) Description 05/25/2025 Telephone [facility] MEDICINE [address] [place] [address] Betsy Waldrop MD [address] [place], [place] [phone] insurance referral Social History Tobacco Use Types Packs/Day Years [...] Miscellaneous Notes * Telephone Encounter - Aura Tyler - 05/25/2025 1:08 PM EST TC from pt requesting new referral :Facility call multiple times but nothing DATE: / TIME: / Address: [address] [place] [address] Visits: 12 Facility Name: [facility] Type of Specialist: spine DX: Join pains Provider : Dr. River Uribe Provider NPI : [id number] Facility Phone # : [phone] Fax #: [phone] Waldrop documented in this encounter Plan of Treatment Upcoming Encounters Date Type Department Care Team (Late st Contact Info) Description 10/01/2025 2:00 PM EDT Office Visit [facility] OPTOMETRY [address] [place] [address] Rachele Arora, OD [address] [place] [address] Scheduled Referrals Name Type Priority Associated Diagnoses Orde r Schedule Referral to Physiatry Outpatient Referral Routine Polyarthralgia Expected: 05/26/2025 (Approximate), Expires: 05/26/2026 documented as of this encounter Visit Diagnoses Diagnosis Polyarthralgia- Primary Pain in joint, multiple sites documented in this encounter Additional Health Concerns Assessment Noted Time PHQ-9 Depression Total Score: 2 03/09/20 25 11:01 AM EDT documented as of this encounter Care Teams Loading Machine Adjuster Relationship Specialty Start Date End Date Betsy Waldrop MD [address] [place] [address] PCP - General Family [facility] documented as of this encounter
--- OUTSIDE RECORDS SUMMARY | 2025-05-27 03:45 | XMS_ITS | Clinical Summary ---
Author Organization [employer] Address [address] [place] [address] Care Team Providers Care Dining Room Manager Name Role Phone Betsy Waldrop MD Primary Care Provider [phone] Allergies Active Allergy Reactions Criticality Noted Date [...] send to pain management Bipolar II disorder ([facility]) 05/13/2020 Overview (12/09/2023): ID: Yani is a [...] intervention , [facility], Patient to engage in [...] Center 10/10/2023 3:[address] [facility] Insomnia due to other mental disorder [...] Severe anxiety 09/10/2019 Smoker 09/10/2019 Morbid obesity ([facility]) 09/10/2019 Assessment & Plan (10/04/2022 5:01 PM EDT): Discussed calorie deficit, recommended reduction of 20-30% of maintenance calories; hydrologic modeler referral offered. Recommended to decrease soda and [...] (08/30/2022): Added automatically from request for surgery [id number] Last Assessment & Plan: Continue diet control. Patient did not bring meter or log today. Seen by nutrition Gestational thrombocytopenia 09/01/2020 10/04/2022 Overview (10/03/2022): Plts 144 on 09/01/20 Needs repeat CBC next visit (10/06/20) Last Assessment & Plan: Plt 158 at last visit 10/27/20 Encounters Date Type Department Care Team Description 05/25/2025 Telephone [facility] MEDICINE [address] [place], [place] [phone] Betsy Waldrop MD insurance referral 05/06/2025 Telephone [facility] MEDICINE [address] [place] [address] Betsy Waldrop MD FYI 05/06/2025 Orders Only GENERIC EXTERNAL DATA DEPARTMENT Provider, Generic External Data 05/03/2025 Orders Only [facility] [address] [place] [address] India Parsons CNP Lumbar back pain with radiculopathy affecting lower extremity (Primary Dx); Polyarthralgia 04/27/2025 Refill [facility] [address] [place] [address] India Parsons CNP Wheezing 03/09/2025 10:45 AM EDT Office Visit [facility] [address] [place] [address] India Parsons CNP Encounter for screening for malignant neoplasm of colon (Primary Dx); Encounter for physical examination; Acquired hypothyroidism; Iron deficiency anemia due to chronic blood loss; Polyarthralgia; Sinus congestion; Positive NORRIS (antinuclear antibody); Menorrhagia with regular cycle; Wheezing 03/09/2025 Travel 03/08/2025 Travel 03/05/2025 Telephone [facility] [address] [place] [address] Betsy Waldrop MD chart prep 03/01/2025 Patient Outreach [facility] [address] [place] [address] Betsy Waldrop MD Pre-visit Planning (SDOH negative, Tobacco screening positive. ) from Last 3 Months Immunizations Immunization Administration [...] 03/09/2025 10:57 AM EDT Plan of Treatment Upcoming Encounters Date Type Department Care Team (Late st Contact Info) Description 10/01/2025 2:00 PM EDT Office Visit [facility] OPTOMETRY [address] [place] [address] Rachele Arora, OD [address] [place] [address] Health Maintenance Due Date Last Done Comments [...] PM EDT Encounter for physical examination HEPATITIS C AB W/REFL TO HCV RNA, [...] 6 PM EDT 05/06/2025 2:13 PM EDT [facility] LABS - 05/10/2025 4:51 PM EST ----- ------- Name: Yani Obrien Age/Sex: 45/F : 1980 Unit#: [id number] Attend Dr: Partha Kelsey MD Re05/06/25 Status: [facility] Location: [facility] Disch: ----- ------- SPEC : [id number] RECD: 05/06/25 STATUS: MINDY RAI NUM: [id number] ANA: 05/06/251236 [facility] DR: Partha Kelsey MD ENTERED: 05/06/25 SP TYPE: Surgical OTHR DR: India Parsons MURAL ARTIST ORDERED: Gross Micro L3 Diagnosis Soft tissue, [...] of skin. Sectioning shows no gross abnormalities. Vegetable Sorter sections, including skin are submitted in cassettes A1. (RJD) IHC S/NG Disclaimer NOTE: Unless otherwise stated, all tissue is formalin-fixed and paraffin-embedded. Some or all of the immunohistochemical tests reported herein may have been developed and their performance characteristics determined by [facility]. They have not been cleared or approved by the U.S. Food and Drug Administration (FDA). However, the FDA has determined that such clearance or approval is not necessary. This laboratory is certified under the Clinical Laboratory Improvement Amendments of 1988 (CLIA) as qualified to perform high complexity clinical laboratory testing. Copies To: Partha Kelsey MD [facility] Weight Management Program [address] [place] [id number] CONTINUED ON NEXT PAGE ----- ------- Name: Yani Obrien Age/Sex: 45/F : 1980 Unit#: [id number] Attend Dr: Partha Kelsey MD Re05/06/25 Status: [facility] Location: [facility] Disch: ----- ------- SPEC : [id number] RECD: 05/06/25 STATUS: MINDY RAI NUM: [id number] ANA: 05/06/25-[address] [facility] [address]: Partha Kelsey MD ENTERED: 05/06/25 SP TYPE: Surgical OTHR DR: India Parsons NP ORDERED: Gross Micro L3 Copies To: (Continued) India Parsons NP [facility] [address] [place] [address] ----- ------- Signed (signature on file) Ana Anthony MD 05/10/251650 ----- ------- END OF REPORT [id number] External Data Provider LAB CYTOLOGY ORDE RABLES Final Result Performing Organization Address [facility] de Phone Number [facility] [address] [place] [address] [phone] * HCG, Qualitative, Urine (05/06/2025 8:11 AM EDT) Urine NEGATIVE NEGATIVE [facility] Comment:This test was develo ped to detect early . Falsenegative results may occur after the 5th - 7th week ofpregnancy when using this test method. If clinicallyindicated, consider a serum hCG. 05/06/2025 8:11 AM EDT 05/06/2025 8:21 AM EDT Generic External Data Provider LAB URINE ORDERAB LES Final Result Performing Organization Address [facility]/ZIP Co de Phone Number [facility] [address] [place] [address] [phone] * (ABNORMAL) CBC auto differential (04/27/2025 3:02 PM EDT) Only the most recent of2 resultswithin the time period is included. White Blood Count 5.0 4.8 - 10.8 X10*3/uL [facility] Red Blood Count 4.36 4.20 - 5.50 X10*6/uL [facility] Hemoglobin 10.5(L) 12.0 - 16.0 g/dl [facility] Hematocrit 34.1(L) 37.0 - 47.0 % [facility] Mean Corpuscular Volume 78.2(L) 80.0 - 98.0 fL [facility] Mean Corpuscular Hemoglobin 24.1(L) 27.0 - 33.0 pg [facility] Mean Corpuscular HGB Conc 30.8(L) 31.0 - 35.0 g/dl [facility] Red Cell Distribution Width 21.0(H) 11.0 - 16.0 % [facility] Platelet Count 184 160 - 400 X10*3/uL [facility] Mean Platelet Volume 10.0 9.4 - 12.3 fL [facility] Neutrophils Percent Auto 56.5 45 - 73 % [facility] Imm Gran Pct Auto 0.4 0.0 - 0.4 % [facility] Lymphocytes Percent Auto 31.1 20 - 40 % [facility] Monocytes Percent Auto 8.4 2 - 11 % [facility] Eosinophils Percent Auto 2.0 0 - 4 % [facility] Basophils Percent Auto 1.6 0 - 2 % [facility] NRBC Pct Auto 0.0 0.0 - 0.2 /100WBC [facility] Neutrophils Absolute Auto 2.8 2.0 - 8.3 x10*3/uL [facility] Imm Gran Abs Auto 0.02 0.00 - 0.03 X10*3/uL [facility] Lymphocytes Absolute Auto 1.6 1.2 - 4.9 X10*3/uL [facility] Monocytes Absolute Auto 0.4 0.1 - 1.2 X10*3/uL [facility] Eosinophils Absolute Auto 0.1 0.0 - 0.4 X10*3/uL [facility] Basophils Absolute Auto 0.1 0.0 - 0.2 X10*3/uL [facility] NRBC Abs Auto 0.000 0.0 - 0.012 X10*3/uL [facility] 04/27/2025 3:02 PM EDT 04/27/2025 3:17 PM EDT Generic External Data Provider LAB BLOOD ORDERAB LES Final Result Performing Organization Address [facility] Co de Phone Number [facility] [address] [place] [phone] * Zinc (04/27/2025 3:02 PM EDT) Zinc 65 60 - 130 mcg/dL [facility] Comment:This test was develo ped and its analytical performancecharacteristics have been determined by [employer] [place], [place]. It hasnot been cleared or approved by the U.S. Food and DrugAdministration. This assay has been validated pursuantto the CLIA regulations and is used for clinicalpurposes.THIS TEST WAS PERFORMED AT:[facility] [place] [address]ZBVUIFYCOLIN GALVAN MD,PHD 04/27/2025 3:02 PM EDT 04/27/2025 3:17 PM EDT us Generic External Data Provider LAB BLOOD ORDERAB LES Final Result Performing Organization Address [facility] Co de Phone Number [facility] [address] [place] [phone] * Type and screen (04/27/2025 3:02 PM EDT) Blood Type BP [facility] Antibody Screen NEGATIVE [facility] 04/27/2025 3:02 PM EDT 04/27/2025 3:29 PM EDT Narrative [facility] - 04/27/2025 4:12 PM EDT Spec expiration changed by NISHANT on 04/27/25Reason: PAT SSSWITNESSED BY AGUSTIN.NURSING:Call Blood Bank (ext. [phone]) to band patient on admission.Type and Screen in effect until 2300 on 05/06/25 Generic External Data Provider LAB BLOOD BANK TE ST ORDERABLES Final Result Performing Organization Address [facility] Co de Phone Number [facility] [address] [place] [address] [phone] * Hemoglobin A1c (04/27/2025 3:02 PM EDT) Hemoglobin A1c 4.8 <6.0 % [facility] Comment:Hemoglobin A1C Refer ence Range Adults: 4.8 - 6.0 % Non diabetic: < 6.0 % Goal: < 7.0 %Additional Action Suggested: > 8.0 %Note: Hemoglobin A1c results are invalid for patients with abnormal amounts of HbF. Blood transfusions may impact the HbA1c concentration in the patient sample. Estimated Average Glucose 91 mg/dL [facility] Comment:eAG = Estimated ave rage glucose which is %A1C expressed asaverage glucose, using the formula of the U8B-IroopuaUphfvkr Glucose study (ADAG), Diabetes Care, Vol.31,#8,Feb. 2007 04/27/2025 3:02 PM EDT 04/27/2025 3:17 PM EDT Generic External Data Provider LAB BLOOD ORDERAB LES Final Result Performing Organization Address [facility] Co de Phone Number [facility] [address] [place] [address] [phone] * Vitamin B12 (04/27/2025 3:02 PM EDT) Pathologist [facility] Vitamin B12 466 200 - 900 pg/mL [facility] Comment:NORMAL 200-900 PG/ML INDETERMINATE 160-199 PG/ML DEFICIENT < 160 PG/ML 04/27/2025 3:02 PM EDT 04/27/2025 3:17 PM EDT Generic External Data Provider LAB BLOOD ORDERAB LES Final Result Performing Organization Address [facility]/ZIP Co de Phone Number [facility] [address] [place] [phone] * Hepatitis B surface antigen, EIA (03/12/2025 12:56 PM EDT) Pathologist [facility] Hepatitis B Surface Ag Negative Negative [facility] Blood Venous blood specimen / Unknown 03/12/2025 12:56 PM EDT 03/12/2025 2:21 PM EDT [facility] LAB BLOOD ORDERABLES Marizol l Result Performing Organization Address [facility] Co de Phone Number [facility] [address] [place] [phone] * Hepatitis B Core Antibody, Total (03/12/2025 12:56 PM EDT) Pathologist [facility] Hepatitis B Core Antibody Nonreactive Nonreactive [facility] Blood Venous blood specimen / Unknown 03/12/2025 12:56 PM EDT 03/12/2025 2:21 PM EDT [facility] LAB BLOOD ORDERABLES Marizol l Result Performing Organization Address [facility] Co de Phone Number [facility] [address] [place] [phone] * Hepatitis B Surface Antibody, Qualitative (03/12/2025 12:56 PM EDT) Pathologist [facility] ~Hepatitis B Surface Antibody REACTIVE Nonreactive [facility] Comment:REACTIVE: > 11.99 mI U/mL Blood Venous blood specimen / Unknown 03/12/2025 12:56 PM EDT 03/12/2025 2:21 PM EDT [facility] LAB BLOOD ORDERABLES Marizol l Result Performing Organization Address [facility]/ZIP Co de Phone Number [facility] [address] [place] [address] [phone] * Lipid Panel, Standard (03/12/2025 12:56 PM EDT) Triglycerides 32 <150 mg/dL [facility] Comment:Desirable Triglyceri de: less than 150 mg/dLBorderline High Triglyceride 150-199 mg/dLHigh Triglyceride: 200-499 mg/dLVery High Triglyceride: greater than or equal to 5OO mg/dL Cholesterol 156 <200 mg/dL [facility] Comment:Desirable Cholestero l: less than 200 mg/dLBorderline High Cholesterol: 200-239 mg/dLHigh Cholesterol: greater than 239 mg/dL LDL Cholesterol Calculated 87 <100 mg/dL [facility] Comment:Desirable LDL: less than 100 mg/dLNear Optimal/Above Optimal LDL: 110- 129 mg/dLBorderline High LDL: 130-159 mg/dLHigh LDL: 160-189 mg/dLVery High LDL: greater than or equal to 190 mg/dL HDL Cholesterol 63 >40 mg/dL [facility] Comment:Desirable HDL: great er than 40 mg/dL Note: This HDL assay may give artificially low results in patients with liver disease. Blood Venous blood specimen / Unknown 03/12/2025 12:56 PM EDT 03/12/2025 2:21 PM EDT [facility] LAB BLOOD ORDERABLES Marizol l Result Performing Organization Address [facility]/ZIP Co de Phone Number [facility] [address] [place] [address] [phone] * (ABNORMAL) Comprehensive Metabolic Panel (03/12/2025 12:56 PM EDT) Sodium 139 135 - 145 mmol/L [facility] Potassium 3.7 3.3 - 5.1 mmol/L [facility] Chloride 107 96 - 108 mmol/L [facility] Carbon Dioxide 25 22 - 29 mmol/L [facility] Anion Gap 11(L) 12 - 20 [facility] Urea Nitrogen (BUN) 11 9 - 16 mg/dL [facility] Creatinine, Serum 0.70 0.5 - 1.4 mg/dL [facility] Estimated Glomerular Filt Rate >60 [facility] Comment:Chronic Kidney Disea se: Estimated GFR < 60 mL/min/1.24e0Erxfki Kidney Disease: Estimated GFR < 15 mL/min/1.73m2 Glucose 78 60 - 115 mg/dL [facility] Calcium 8.8 8.4 - 10.2 mg/dL [facility] Bilirubin, Total 0.4 0.0 - 1.0 mg/dL [facility] Aspartate Amino Transferase 25 5 - 31 U/L [facility] Alanine Aminotransferase 16 0 - 31 U/L [facility] Total Protein 6.8 6.5 - 8.0 g/dL [facility] Albumin Level 4.2 3.5 - 5.0 g/dL [facility] Alkaline Phosphatase 43 39 - 117 U/L [facility] Blood Venous blood specimen / Unknown 03/12/2025 12:56 PM EDT 03/12/2025 2:21 PM EDT [facility] [employer] LAB BLOOD ORDERABLES Marizol l Result [facility] [address] [place], [place] [phone] * Hepatitis C Antibody with Reflex to HCV, RNA, Quantitative, Real-Time PCR (05/26/2024 3:54 PM EST) Hepatitis C Antibody Nonreactive Nonreactive [facility] Comment:Antibodies to HCV no t detected; does not exclude early acuteHCV infection. Blood Venous blood specimen / Unknown 05/26/2024 3:54 PM EST 05/26/2024 3:54 PM EST Betsy Waldrop MD LAB BLOOD ORDERABLES Final Re sult Performing Organization Address [facility]/ZIP Co de Phone Number [facility] [address] [place] [phone] [phone] * HIV-1/2 Antigen and Antibodies, Fourth Generation, with Reflexes (05/26/2024 3:54 PM EST) HIV AB/AG Nonreactive Nonreactive [facility] Comment:HIV-1 p24 Ag and/or HIV-1/HIV-2 Ab not detected.A test result that is nonreactive does not exclude thepossibility of exposure to or infection with HIV-1 and/orHIV-2. Nonreactive results in this assay for individualswith prior exposure to HIV-1 and/or HIV-2 may be due toantigen and antibody levels that are below the limit ofdetection of this assay.The Tindie HIV Ag/Ab Combo assay result andsupplemental assay results should be interpreted inconjunction with the patient's clinical presentation,history and other laboratory results. If the results areinconsistent with clinical evidence, additional testing issuggested to confirm the result. Blood Venous blood specimen / Unknown 05/26/2024 3:54 PM EST 05/26/2024 3:54 PM EST Betsy Waldrop MD LAB BLOOD ORDERABLES Final Re sult Performing Organization Address City/[facility]/ZIP Co de Phone Number [facility] [address] [place] [address] [phone] * Pap Smear (02/04/2024 12:00 AM EDT) SOURCE: SEE NOTE [facility] Comment:None given Report Status: TNP [facility] Clinical Information: SEE NOTE [facility] Comment:None given LMP: SEE NOTE [facility] Comment:NONE GIVEN Prev. PAP: SEE NOTE [facility] Comment:NONE GIVEN Prev. BX: SEE NOTE [facility] Comment:NONE GIVEN Statement Of Adequacy: SEE NOTE [facility] Comment:Satisfactory for gavin luation.Endocervical/transformation zone componentpresent. General Categorization: [facility] Interpretation/Result: SEE NOTE [facility] Comment:Cytology Results: Ne gative for intraepitheliallesion or malignancy. Cytology Comment SEE NOTE [facility] Comment:This Pap test has be en evaluated with computerassisted technology. Applications Coordinator: SEE NOTE [facility] Comment:YP, CT(ASCP)CT scree jessica location: [place] [address] Review Applications Coordinator: SEE NOTE [facility] Comment:SL, CT(ASCP)CT scree jessica location: [place] [address] Pathologist [facility] PAP Infection [facility] See Note SEE NOTE [facility] Comment:EXPLANATORY NOTE:The Pap is a screening test for cervical cancer. It isnot a diagnostic test and is subject to false negativeand false positive results. It is most reliable when asatisfactory sample, regularly obtained, is submittedwith relevant clinical findings and history, and whenthe Pap result is evaluated along with historic andcurrent clinical information.THIS TEST WAS PERFORMED AT:[facility] [address] [address]YOIQPPERLA VALLE MD Pap Vial Vaginal structure / Unknown 02/04/2024 02/04/2024 Narrative [facility] - 02/07/2024 10:36 AM EDT SEE SCANNED RESULTS IN EMR us Betsy Waldrop MD LAB PATHOLOGY ORDERABLES Marizol benitez Result [facility] [address] [place] [phone] * HPV mRNA E6/E7 w/Reflex to HPV Genotypes 16, 18/45 (02/04/2024 12:00 AM EDT) HPV nRNA E6/E7 NOT DETECTED [facility] Comment:Methodology: Transcr iption-Mediated AmplificationThis assay detects E6/E7 viral messenger RNA (mRNA) from 14high-risk HPV types(16,18,31,33,35,39,45,51,52,56,58,59,66,68).Cervical sources are required for HPV testing.If a vaginal source from a patient who has had atotal hysterectomy with removal of cervix wassubmitted, please contact the testing laboratoryfor alternative testing options.For additional information, please refer tohttp://education.Shop Hers/faq/CAD840v0(This link if provided for information/educational purposes only.)THIS TEST PERFORMED AT:[facility] [place] [phone] DIRECTOR: PERLA VALLE MD HPV mRNA E6/E7 [facility] HPV 16 RNA [facility] HPV 18/45 RNA [facility] Vaginal Fluid Cervix uteri structure / Unknown 02/04/2024 02/04/2024 Narrative [facility] - 02/07/2024 10:36 AM EDT SEE SCANNED RESULTS IN EMRCollection Date: [id number] by: FIDE Carr: Cervix us Betsy Waldrop MD LAB CYTOLOGY ORDERABLES Final Result [facility] [address] [place] [phone] from Last 3 Months or Most Recently Relevant to Health Maintenance Insurance C3 Care Teams Dining Room Manager Relationship Specialty Start Date End Date Betsy Waldrop MD [address] [place] [phone] PCP - General Family Medicine 08/30/22 Nalini A 05/07/25
--- OUTSIDE RECORDS SUMMARY | 2025-05-27 03:45 | XMS_ITS | Encounter Summary ---
Author Organization [employer] Address [address] [place] [address] Care Team Providers Care Audiovisual Librarian Name Role Phone Betsy Waldrop MD Primary Care Provider [phone] Encounter Details Date Type Department Care Team (Late st Contact Info) Description 09/26/2023 Telephone [facility] MEDICINE [address] [place] [address] Betsy Waldrop MD [address] [place] [address] Social History Tobacco Use Types Packs/Day Years [...] able to take her to [facility]. * Telephone Encounter - Lorena Katz - 09/26/2023 10:32 AM EDT Tc from pt requesting to switch appt for today 09/25 at 2:45 to tele due to son with asthma. documented in this encounter Plan of Treatment Upcoming Encounters Date Type Department Care Team (Late st Contact Info) Description 10/01/2025 2:00 PM EDT Office Visit [facility] OPTOMETRY [address] [place], [place] [phone] Rachele Arora, ROBERTO [address] [place] [address] documented as of this encounter Visit Diagnoses Not on filedocumented in this encounter Additional Health Concerns Assessment Noted Time PHQ-9 Depression Total Score: 12 023 1:23 PM EDT documented as of this encounter Care Teams Audiovisual Librarian Relationship Specialty Start Date End Date Betsy Waldrop MD [address] [place] [address] PCP - General Family Medicine 08/30/22 Nalini REILLY 05/07/25 documented as of this encounter
--- OUTSIDE RECORDS SUMMARY | 2025-05-27 03:45 | XMS_ITS | Encounter Summary ---
Author Organization [employer] Address [address] [facility] [address] [place] [address] Care Team Providers Care Double Head Machine Operator Name Role Phone Betsy Waldrop MD Primary Care Provider [phone] Reason for Visit * Reason Onset Date Comments Reschedule 12/17/2023 chart prep 12/17/2023 Encounter Details Date Type Department Care Team ([facility] st Contact Info) Description 12/17/2023 Telephone [facility] MED & PEDS [address] [place] [address] Betsy Waldrop MD [address] [place] [address] Reschedule; chart prep Social History Tobacco Use [...] 12/16 PAP appointment. Please contact pt at [phone] documented in this encounter Plan of Treatment Upcoming Encounters Date Type Department Care Team (Late st Contact Info) Description 10/01/2025 2:00 PM EDT Office Visit [facility] OPTOMETRY [address] [place], [place] [phone] Rachele Arora, OD [address] [place], [place] [phone] documented as of this encounter Visit Diagnoses Not on filedocumented in this encounter Additional Health Concerns Assessment Noted Time PHQ-9 Depression Total Score: 13 024 8:42 AM EDT documented as of this encounter Care Teams Double Head Machine Operator Relationship Specialty Start Date End Date Betsy Waldrop MD [address] [place] [address] PCP - General Family Medicine 08/30/22 [facility] documented as of this encounter
--- OUTSIDE RECORDS SUMMARY | 2025-05-27 03:45 | XMS_ITS | Encounter Summary ---
Author Organization [facility] Address [address] [place] [address] Care Team Providers Care Director Of Community Life Name Role Phone Max Arizmendi Primary Care Provider Tammy Naylor LPCA Unavailable Anusha Molina PATROL OFFICER Unavailable Rachele Ornelas HAND SLITTER Unavailable Encounter Details Date Type Department Care Team (Late st Contact Info) Description 09/29/2020 Prep for Surgery [facility] [address] [place] [address] [phone] Lori Lau MD [address] [place] [address] Diet controlled gestational diabetes mellitus (GDM) in [...] Primary documented in this encounter Care Teams Director Of Community Life Relationship Specialty Start Date End Date Max Arizmendi [address] [place] [address] PCP - General 09/01/19 Tammy Naylor LPCA [address] [place] [address] Clinician Social Work 05/03/20 02/21/22 Anusha Molina APRN [address] [place] [address] Primary Attending Psychiatry, General 05/06/2002/22 Rachele Ornelas LCSW [address] [place] [address] Wrapper Dipper Clinical Social Work 05/24/20 02/21/22 documented as of this encounter
--- OUTSIDE RECORDS SUMMARY | 2025-05-27 03:45 | XMS_ITS | Encounter Summary ---
Author Organization [facility] Address [address] [place] [address] Care Team Providers Care Cuff Maker Name Role Phone Max Arizmendi Primary Care Provider Tammy Naylor LPCA Unavailable [phone] Anusha Molina ARTIFICIAL CHERRY MAKER Unavailable Rachele Ornelas TIP CUTTER Unavailable Encounter Details Date Type Department Care Team (Late st Contact Info) Description 10/27/2020 Prep for Surgery [facility] Services [address] [place] [phone] Ashley Piña MD [facility] [address] [facility] [address] [place] [address] Social History Tobacco Use Types Packs/Day Years [...] A/P d/w Dr. Bassem Piña MD PGY-3 [facility] SOFTWARE DEPLOYMENT ENGINEER (p) 10/27/20 12:01 PM Chief Complaint: [...] oz) M CS-LTranv LANI Comments: preeclampsia Past LARDER COOK History: Denies history of abnormal pap smear Denies history of STIs Past Medical History: Past Medical History: Diagnosis Date ??? Anxiety ??? Depressed ??? Disease of thyroid gland Past Surgical History: Past Surgical History: Procedure Laterality Date ??? SECTION ??? CHOLECYSTECTOMY ??? [place] NJX DX/THER SBST INTRLMNR LMBR/SAC W/IMG GDN Right 03/22/2018 Procedure: IR Epidural Inject Steroid Lumbar/Sacral w/img; Surgeon: Rakesh Garvey MD; Location: [facility]; Service: Interventional Radiology Social History: Denies [...] tablet 3 ??? Blood Glucose Monitoring Suppl ([employer]) w/Device Kit USE TO TEST BLOOD GLUCOSE [...] by mouth daily. 14 packet 1 ??? Uew-BuNnkc-KE-DHA ( MULTIVITAMIN PER STATE FORMULARY) tablet Take 1 tablet by mouth daily as directed. Dispense Brand per State Formulary. 30 tablet 11 ??? SUPPLY [facility] cradle. Length of need 6 months. 1 [...] on filedocumented in this encounter Care Teams Cuff Maker Relationship Specialty Start Date End Date Max Arizmendi [address] [place] [address] PCP - General 09/01/19 Tammy Naylor LPCA [address] [place] [address] Clinician Social Work 05/03/20 02/21/22 Anusha Molina APRN [address] [place] [address] Primary BH Attending Psychiatry, General 05/06/2002/22 Backer Rachele Lawrence LCSW [address] [place] [address] Child Care Cook Clinical Social Work 05/24/20 02/21/22 documented as of this encounter
--- OUTSIDE RECORDS SUMMARY | 2025-05-27 03:45 | XMS_ITS | Clinical Summary ---
Author Organization [facility] Address [address] [place] [address] Care Team Providers Care Nursing Scheduler Name Role Phone Max Arizmendi Primary Care Provider [phone] Allergies Active Allergy Reactions Criticality Noted Date [...] empty stomach. 90 tablet 1 2 Active Cwz-PoKbdx-WA-DHA (Vitafol-One) 29-1-200 MG CapIndications:Esha haas is a [...] (09/30/2020): Added automatically from request for surgery [id number] Assessment & Plan (11/03/2020 10:48 AM EDT): [...] was recommended to per her provider at [facility] Assessment & Plan (08/30/2021 4:27 PM [...] past but not on meds since 2018. application services manager referral placed. DF Assessment & [...] (03/22/2018): Added automatically from request for surgery [id number] Assessment & Plan (04/27/2020 4:24 PM EDT): Patient reports history of herniated disk and sciatica. Will have anesthesia consult later in . Lumbar radiculopathy 03/19/2018 020 Overview (03/22/2018): Added automatically from request for surgery [id number] Immunizations Immunization Administration Dates Next Due Influenza [...] test by nucleic acid amplification. Performed at [facility], [place], [place] License 0385 CLIA [id number] Blood specimen (specimen) Blood specimen / Unknown 09/29/2020 3:36 PM EDT 09/29/2020 6:22 PM EDT us Audrey Luevano MD LAB BLOOD ORDERABLES Marizol l Result HOSPITAL LAB * Hepatitis C Virus (HCV) Antibody (04/08/2020 11:00 AM EDT) Pathologist [facility] Hepatitis C Antibody 0.15 0.00 - 0.79 S/CO ratio HOSPITAL LAB Hepatitis C Antibody Interpretation Nonreactive Nonreactive HOSPITAL LAB Comment:Performed at [facility], [place], [place] License 0385 CLIA [id number] Blood specimen (specimen) Heel structure / Unknown 04/08/2020 11:00 AM EDT 04/08/2020 12:32 PM EDT us Rachele Cheung MD LAB BLOOD ORDERABLES Final Result HOSPITAL LAB from Last 3 Months or Most Recently Relevant to Health Maintenance Insurance [facility] Advance Directives * [...] 6:42 PM 06/28/2019 5:12 PM Care Teams Nursing Scheduler Relationship Specialty Start Date End Date Max Arizmendi [address] [place] [address] PCP - General 09/01/19
--- OUTSIDE RECORDS SUMMARY | 2025-05-27 03:45 | XMS_ITS | Encounter Summary ---
Author Organization [employer] Address [address] [place] [address] Care Team Providers Care Manager Investment Banking Name Role Phone Betsy Waldrop MD Primary Care Provider [phone] Reason for Visit * Reason Onset Date Comments Nurse Triage 04/23/2024 Encounter Details Date Type Department Care Team (Late st Contact Info) Description 04/23/2024 Telephone [facility] MED [facility] PEDS [address] [place], [place] [phone] Betsy Waldrop MD [address] [place] [address] Nurse Triage Social History Tobacco Use Types [...] the past 12 months, has t he AIT, gas, oil or water company threatened to [...] Description 10/01/2025 2:00 PM EDT Office Visit [facility] OPTOMETRY [address] [place] [address] Rachele Arora, OD [address] [place] [address] documented as of this encounter Visit Diagnoses Not on filedocumented in this encounter Additional Health Concerns Assessment Noted Time PHQ-9 Depression Total Score: 13 024 8:42 AM EDT documented as of this encounter Care Teams Manager Investment Banking Relationship Specialty Start Date End Date Betsy Waldrop MD [address] [place] [address] PCP - General Family Medicine 08/30/22 Nalini REILLY 05/07/25 documented as of this encounter
--- OUTSIDE RECORDS SUMMARY | 2025-05-27 03:45 | XMS_ITS | Encounter Summary ---
Author Organization [facility] Address [address] [place] [address] Care Team Providers Care Advanced Clinical Specialist Name Role Phone Max Arizmendi Primary Care Provider [phone] Tammy Naylor LPCA Unavailable Anusha Molina SUPERVISOR IN CHARGE Unavailable [phone] Rachele Ornelas NETWORK ACCOUNT MANAGER Unavailable [phone] Encounter Details Date Type Department Care Team (Late st Contact Info) Description 11/21/2020 Scanned Document [facility] Women's Ambulatory Health Services [address] [place] [address] [phone] Rachele Cheung MD [address] [place] [address] Social History Tobacco Use Types Packs/Day Years [...] on filedocumented in this encounter Care Teams Advanced Clinical Specialist Relationship Specialty Start Date End Date Ugo Destinycheng [address] [place] [address] PCP - General 09/01/19 Tammy Naylor LPCA [address] [place] [address] Clinician Social Work 05/03/20 02/21/22 Anusha Molina APRN [address] [place] [address] Primary BH Attending Psychiatry, General 05/06/2002/22 Rachele Ornelas LCSW [address] [place] [address] Button Tufter Clinical Social Work 05/24/20 02/21/22 documented as of this encounter
--- OUTSIDE RECORDS SUMMARY | 2025-05-27 03:45 | XMS_ITS | Encounter Summary ---
Author Organization [employer] Address [address] [facility] 7t [place] [address] Care Team Providers Care Retail General Manager Name Role Phone Betsy Waldrop MD Primary Care Provider [phone] Encounter Details Date Type Department Care Team (Late Contact Info) Description 12/04/2022 Abstract [facility] Information Management [address] [place] [address] Betsy Waldrop MD [address] [place] [address] Social History Tobacco Use Types Packs/Day Years [...] Encounters Date Type Department Care Team (Late Contact Info) Description 10/01/2025 2:00 PM EDT Office Visit [facility] OPTOMETRY [address] [place] [address] Rachele Arora, OD [address] [place] [address] documented as of this encounter Visit Diagnoses Not on filedocumented in this encounter Additional Health Concerns Assessment Noted Time PHQ-9 Depression Total Score: 12 023 1:23 PM EDT documented as of this encounter Care Teams Retail General Manager Relationship Specialty Start Date End Date Betsy Waldrop MD [address] [place] [address] PCP - General Family Medicine 08[facility]22 [facility] documented as of this encounter
== END 2025-05-26 16:15 | disposition home or self-care (01) ==
LOC: HO.HBS 15:10
PROVIDERS: Visit Provider Nurse Practitioner
DX: Z98.890 Other specified postprocedural states (principal); Z98.84 Bariatric surgery status
CPT/HCPCS: 99024; 99499

== ENCOUNTER → 2025-05-26 15:10 | Outpatient (BNVA) | payer MEDICAID, SELFPAY | PROVIDERS: Visit Provider Nurse Practitioner | DX: Z48.817 Encounter for surgical aftercare following surgery on the skin and subcutaneous tissue (principal); Z98.84 Bariatric surgery status | CPT/HCPCS: 99212 ==

== ENCOUNTER 2025-06-02 15:04 | Outpatient (AMB) | payer MEDICAID, SELFPAY ==
--- NOTE | 2025-06-02 15:14 | MHC.OFFVISWM ---
VS Expanded 06/02/25 15:20 BP 108/62 Blood Pressure Location Rt brachial Blood Pressure Position Sitting Pulse 89 Pulse Source Pulse Oximeter Temp 98.4 F Temperature Source Temporal Artery Scan Pulse Oximetry 100 Oxygen Delivery Method Room Air Intake Visit Reasons: (OV) s/p Panniculectomy 05/06/25 Allergies diphenhydramine (From Benadryl) Adverse Reaction (Mild, Verified 05/26/25 15:49) palpitations/anxiety HPI Comments Details: 45 yo woman presents s/p panniculectomy 05/06/2025. 4 weeks postop Drain output 5-25cc per day independent dsg changes daily, VNA comes a few times a week toddler at home keeps her busy compliant with meal plan, abd binder, and ABX PFSH Medical History Postgastrectomy malabsorption Depression Bipolar disorder Iron deficiency anemia PONV (postoperative nausea and vomiting) Migraines Arthritis Lico's disease Anxiety Sciatica History of herniated intervertebral disc Hyperlipidemia DJD (degenerative joint disease) GERD (gastroesophageal reflux disease) Surgical History History of sleeve gastrectomy H/O Spinal surgery Hx of section Hx of cholecystectomy Family History Mother Diabetes Hypertension Father No problems noted. Son No problems noted. Son No problems noted. Daughter No problems noted. Social History Household Members: Family Housing: Apartment Are you a primary pharmacy care coordinator to a significant other at home: No Do you presently have visiting nurse or other home services: No Alcohol intake: never Patient Tobacco Use Status: Former Tobacco user Tobacco use type: Cigarette Cigarettes Per Day: 4 Years Smoked: 30 e-Cigarette/Vaping Use: Currently Using service: No Physical Exam Const General: cooperative, comfortable and no acute distress Orientation/consciousness: patient oriented x3 GI Other: soft, nontender, nondistended, panniculectomy incisions healing well, drain output SS Neuro General: patient oriented x3 Assessment & Plan Assessment & Plan (1) S/P panniculectomy: Code(s): Z98.890 - Other specified postprocedural states Category: Surgical (2) S/P laparoscopic sleeve gastrectomy: Code(s): Z98.84 - Bariatric surgery status Category: Surgical Plan Continue high protein diet. ABX keflex 500 BID x 2 weeks, extended as needed?(at least until drain comes out plus 1 week).? Drain out after consistently 20 mL or less daily- can likely come out next week but did have one day of >20cc this week.? Abdominal binder at all times except for care x 1 month?MINIMUM. If there are concerns longer.? No driving?until drain out.? No walking outside or exercise for 6 weeks minimum. Walking in the house ok but I encouraged pt to try to be less active to help decrease drain output- she is active with her 4yo. Assistance getting up for 4 weeks minimum.?No lifting greater than?10 pounds x 2 months and no abdominal exercises x 3 months.
[2025-06-02 15:20] VITALS: BP 108/62; PULSE 89; TEMP 36.9; O2SAT 100
--- OUTSIDE RECORDS SUMMARY | 2025-06-02 17:37 | XMS_ITS | Encounter Summary ---
Author Organization [facility] Address [address] [place] [address] Care Team Providers Care Health Information Assistant Name Role Phone Max Arizmendi Primary Care Provider Tammy Naylor LPCA Unavailable Anusha Molina HERB COUNSELOR Unavailable Rachele Ornelas RETAIL SALES CONSULTANT Unavailable Encounter Details Date Type Department Care Team (Late st Contact Info) Description 03/24/2020 [facility] [address] [facility] [address] [place] [phone] Dolly Enamorado MD [address] [facility] [address] [place] [address] Hypothyroidism (acquired) (Primary Dx) Social History Tobacco [...] Performing Organization Information: Site ID: [id number] Name: [facility] Address: [address] [place] [address], [place] [address] Director: Deanne Mcdonough MD us Dolly Enamorado MD LAB BLOOD ORDERABLES Final R esult [facility] [address] [place] [address], [place] [address] * T4, Free (04/15/2020 2:52 PM EDT) T4, Free 1.3 0.8 - 1.8 ng/dL [facility] Blood specimen (specimen) Heel structure / Unknown 04/15/2020 2:52 PM EDT 04/15/2020 2:52 PM EDT Narrative [facility] - 04/16/2020 3:40 AM EDT FASTING:NO FASTING: NO Resulting Agency Comment Performing Organization Information: Site ID: [id number] Name: [employer] Address: [address] [place] [address], [facility] [place] [address] Director: Deanne Mcdonough MD Dolly Enamorado MD LAB BLOOD ORDERABLES Final R esult [facility] [address], [place] [address] documented in this encounter Visit Diagnoses Diagnosis Hypothyroidism (acquired)- Primary Unspecified hypothyroidism documented in this encounter Care Teams Health Information Assistant Relationship Specialty Start Date End Date Max Arizmendi [address] [place] [address] PCP - General 09/01/19 Tammy Naylor LPCA [address] [place] [address] Clinician Social Work 05/03/20 02/21/22 Anusha Molina APRN [address] [place] [address] Primary BH Attending Psychiatry, General 05/06/2002/22 Backer Rachele Lawrence LCSW [address] [place] [address] Grain Elevator Man Clinical Social Work 05/24/20 02/21/22 documented as of this encounter
--- OUTSIDE RECORDS SUMMARY | 2025-06-02 17:37 | XMS_ITS | Encounter Summary ---
Author Organization [facility] Address [address] [place] [address] Care Team Providers Care Import/Export Administrator Name Role Phone Max Arizmendi Primary Care Provider Tammy Naylor LPCA Unavailable Anusha Molina ASSISTANT RESTAURANT GENERAL MANAGER Unavailable Rachele Ornelas CORPORATE TRAINING MANAGER Unavailable Encounter Details Date Type Department Care Team (Late st Contact Info) Description 11/25/2020 Scanned Document [facility] Women's Ambulatory Health Services [address] [place] [address] [phone] Josie Bingham MD [address] [place] [address] Social History Tobacco Use Types Packs/Day Years [...] on filedocumented in this encounter Care Teams Import/Export Administrator Relationship Specialty Start Date End Date Ugo Destinycheng [address] [place] [address] PCP - General 09/01/19 Tammy Naylor LPCA [address] [place] [address] Clinician Social Work 05/03/20 02/21/22 Anusha Molina APRN [address] [place] [address] Primary BH Attending Psychiatry, General 05/06/2002/22 Rachele Ornelas LCSW [address] [place] [address] Digital Measurement Advisor Clinical Social Work 05/24/20 02/21/22 documented as of this encounter
--- OUTSIDE RECORDS SUMMARY | 2025-06-02 17:37 | XMS_ITS | Encounter Summary ---
Author Organization [facility] Address [address] [place] [address] Care Team Providers Care Manager Pe Name Role Phone Max Arizmendi Primary Care Provider [phone] Tammy Naylor LPCA Unavailable Anusha Molina BINDER STRIPPER HAND Unavailable Rachele Ornelas CASHIER CREDIT Unavailable Encounter Details Date Type Department Care Team (Late st Contact Info) Description 10/27/2020 Prep for Surgery [facility] Women's Ambulatory Health Services [address] [place] [phone] Ashley Piña MD [facility] Womens Care [facility] [address] [facility] [address] [place] [address] Social History Tobacco Use Types Packs/Day Years [...] A/P d/w Dr. Bassem Piña MD PGY-3 [facility] GENERAL SERVICE TECHNICIAN (p) 10/27/20 12:01 PM Chief Complaint: I'm [...] oz) M CS-LTranv LANI Comments: preeclampsia Past BOOT AND SHOE LABORER History: Denies history of abnormal pap smear Denies history of STIs Past Medical History: Past Medical History: Diagnosis Date ??? Anxiety ??? Depressed ??? Disease of thyroid gland Past Surgical History: Past Surgical History: Procedure Laterality Date ??? SECTION ??? CHOLECYSTECTOMY ??? [place] NJX DX/THER SBST INTRLMNR LMBR/SAC W/IMG GDN Right 03/22/2018 Procedure: IR Epidural Inject Steroid Lumbar/Sacral w/img; Surgeon: Rakesh Garvey MD; Location: [facility]; Service: Interventional Radiology Social History: Denies [...] tablet 3 ??? Blood Glucose Monitoring Suppl ([employer]) w/Device Kit USE TO TEST BLOOD GLUCOSE [...] by mouth daily. 14 packet 1 ??? Xsu-JsTlsl-JB-DHA ( MULTIVITAMIN PER STATE FORMULARY) tablet Take 1 tablet by mouth daily as directed. Dispense Brand per State Formulary. 30 tablet 11 ??? SUPPLY [facility] cradle. Length of need 6 months. [...] filedocumented in this encounter Care Teams Manager Pe Relationship Specialty Start Date End Date Max Arizmendi [address] [place] [address] PCP - General 09/01/19 Tammy Naylor LPCA [address] [place] [address] Clinician Social Work 05/03/20 02/21/22 Anusha Molina APRN [address] [place] [address] Primary BH Attending Psychiatry, General 05/06/2002/22 Backer Rachele Lawrence LCSW [address] [place] [address] Chief Payroll Clerk Clinical Social Work 05/24/20 02/21/22 documented as of this encounter
--- OUTSIDE RECORDS SUMMARY | 2025-06-02 17:37 | XMS_ITS | Encounter Summary ---
Author Organization [facility] Address [address] [place] [address] Care Team Providers Care Assistant Community Director Name Role Phone Max Arizmendi Primary Care Provider Tammy Naylor LPCA Unavailable Anusha Molina DIRECTOR FINANCIAL PLANNING Unavailable Rachele Ornelas MOTOR TUNE UP SPECIALIST Unavailable Encounter Details Date Type Department Care Team (Late st Contact Info) Description 11/21/2020 Scanned Document [facility] Women's Ambulatory Health Services [address] [place] [address] [phone] Rachele Cheung MD [address] [place] [address] Social History Tobacco Use Types Packs/Day Years [...] on filedocumented in this encounter Care Teams Assistant Community Director Relationship Specialty Start Date End Date Ugo Destinycheng [address] [place] [address] PCP - General 09/01/19 Tammy Naylor LPCA [address] [place] [address] Clinician Social Work 05/03/20 02/21/22 Anusha Molina APRN [address] [place] [address] Primary BH Attending Psychiatry, General 05/06/2002/22 Rachele Ornelas LCSW [address] [place] [address] Consumer Insight Analyst Clinical Social Work 05/24/20 02/21/22 documented as of this encounter
--- OUTSIDE RECORDS SUMMARY | 2025-06-02 17:37 | XMS_ITS | Encounter Summary ---
Author Organization [employer] Address [address] [facility] [address] [place] [address] Care Team Providers Care Agricultural Engineering Technologist Name Role Phone Betsy Waldrop MD Primary Care Provider [phone] Encounter Details Date Type Department Care Team (Late st Contact Info) Description 11/19/2024 Orders Only [facility] [address] [place], [place] [phone] Velia Hudson MD [address] [place] [address] Anemia, unspecified type (Primary Dx) Social History [...] 10/01/2025 2:00 PM EDT Office Visit [facility] [address] [place] [address] TarkaRachele, OD [address] [place] [address] Pending Results Name Type Priority Associated Diagnoses [...] EDT) Zinc 65 60 - 130 mcg/dL [facility] Comment:This test was develo ped and its analytical performancecharacteristics have been determined by [employer] [place], [place]. It hasnot been cleared or approved by the U.S. Food and DrugAdministration. This assay has been validated pursuantto the CLIA regulations and is used for clinicalpurposes.THIS TEST WAS PERFORMED AT:[employer]/[id number] [place] [id number] W. MASON,MD,PHD 04/27/2025 3:0 2 PM EDT 04/27/2025 3:17 PM EDT us Generic External Data Provider LAB BLOOD ORDERAB LES Final Result [facility] [address] [place] [phone] * Vitamin B12 (04/27/2025 3:02 PM EDT) Vitamin B12 466 200 - 900 pg/mL [facility] Comment:NORMAL 200-900 PG/ML INDETERMINATE 160-199 PG/ML DEFICIENT < 160 PG/ML 04/27/2025 3:02 PM EDT 04/27/2025 3:17 PM EDT Generic External Data Provider LAB BLOOD ORDERAB LES Final Result Performing Organization Address [facility] de Phone Number [facility] [address] [place] [phone] * Type and screen (04/27/2025 3:02 PM EDT) Blood Type BP [facility] Antibody Screen NEGATIVE [facility] 04/27/2025 3:02 PM EDT 04/27/2025 3:29 PM EDT Narrative [facility] - 04/27/2025 4:12 PM EDT Spec expiration changed by NISHANT on 04/27/25Reason: PAT SSSWITNESSED BY AGUSTIN.NURSING:Call Blood Bank (ext. [phone]) to band patient on admission.Type and Screen in effect until 2300 on 05/06/25 Generic External Data Provider LAB BLOOD BANK TE ST ORDERABLES Final Result Performing Organization Address [facility] Phone Number [facility] [address] [place] [address] [phone] * Hemoglobin A1c (04/27/2025 3:02 PM EDT) Hemoglobin A1c 4.8 <6.0 % [facility] Comment:Hemoglobin A1C Refer ence Range Adults: 4.8 - 6.0 % Non diabetic: < 6.0 % Goal: < 7.0 %Additional Action Suggested: > 8.0 %Note: Hemoglobin A1c results are invalid for patients with abnormal amounts of HbF. Blood transfusions may impact the HbA1c concentration in the patient sample. Estimated Average Glucose 91 mg/dL [facility] Comment:eAG = Estimated ave rage glucose which is %A1C expressed asaverage glucose, using the formula of the V4E-TstvadpBmpljrm Glucose study (ADAG), Diabetes Care, Vol.31,#8,2007 04/27/2025 3:02 PM EDT 04/27/2025 3:17 PM EDT us Generic External Data Provider LAB BLOOD ORDERAB LES Final Result [facility] [address] [place] [phone] * (ABNORMAL) CBC auto differential (04/27/2025 3:02 PM EDT) White Blood Count 5.0 4.8 - 10.8 X10*3/uL [facility] Red Blood Count 4.36 4.20 - 5.50 X10*6/uL [facility] Hemoglobin 10.5(L) 12.0 - 16.0 g/dl [facility] Hematocrit 34.1(L) 37.0 - 47.0 % [facility] Mean Corpuscular Volume 78.2(L) 80.0 - 98.0 fL [facility] Mean Corpuscular Hemoglobin 24.1(L) 27.0 - 33.0 pg [facility] Mean Corpuscular HGB Conc 30.8(L) 31.0 - 35.0 g/dl [facility] Red Cell Distribution Width 21.0(H) 11.0 - 16.0 % [facility] Platelet Count 184 160 - 400 X10*3/uL [facility] Mean Platelet Volume 10.0 9.4 - 12.3 fL [facility] Neutrophils Percent Auto 56.5 45 - 73 % [facility] Imm Gran Pct Auto 0.4 0.0 - 0.4 % [facility] Lymphocytes Percent Auto 31.1 20 - 40 % [facility] Monocytes Percent Auto 8.4 2 - 11 % [facility] Eosinophils Percent Auto 2.0 0 - 4 % [facility] Basophils Percent Auto 1.6 0 - 2 % [facility] NRBC Pct Auto 0.0 0.0 - 0.2 /100WBC [facility] Neutrophils Absolute Auto 2.8 2.0 - 8.3 x10*3/uL [facility] Imm Gran Abs Auto 0.02 0.00 - 0.03 X10*3/uL [facility] Lymphocytes Absolute Auto 1.6 1.2 - 4.9 X10*3/uL [facility] Monocytes Absolute Auto 0.4 0.1 - 1.2 X10*3/uL [facility] Eosinophils Absolute Auto 0.1 0.0 - 0.4 X10*3/uL [facility] Basophils Absolute Auto 0.1 0.0 - 0.2 X10*3/uL [facility] NRBC Abs Auto 0.000 0.0 - 0.012 X10*3/uL [facility] 04/27/2025 3:02 PM EDT 04/27/2025 3:17 PM EDT us Generic External Data Provider LAB BLOOD ORDERAB LES Final Result Performing Organization Address City/[facility]/ZIP Co de Phone Number [facility] [address] [place] [address] [phone] * (ABNORMAL) Reticulocyte Count (11/24/2024 11:23 AM EDT) Reticulocytes Absolute 0.055 0.026 - 0.095 X10*6/uL [facility] Immature Retic Fraction 19.5(H) 3.0 - 15.9 % [facility] Retic HGB Equivalent 21.1(L) 30.0 - 35.0 pg [facility] Reticulocyte Percent 1.2 0.5 - 1.8 % [facility] Blood Venous blood specimen / Unknown 11/24/2024 11:23 AM EDT 11/24/2024 2:17 PM EDT us Velia Hudson MD LAB BLOOD ORDERABLES Final Result Performing Organization Address City/[facility]/ZIP Co de Phone Number [facility] [address] [place] [phone] documented in this encounter Visit Diagnoses Diagnosis Anemia, unspecified type- Primary documented in this encounter Additional Health Concerns Assessment Noted Time PHQ-9 Depression Total Score: 13 024 8:42 AM EDT documented as of this encounter Care Teams Agricultural Engineering Technologist Relationship Specialty Start Date End Date Betsy Waldrop MD [address] [place] [address] PCP - General Family Medicine 08/30/22 [facility] 05/07/25 documented as of this encounter
--- OUTSIDE RECORDS SUMMARY | 2025-06-02 17:37 | XMS_ITS | Clinical Summary ---
Author Organization [facility] Address [address] [place] [address] Care Team Providers Care Video Recorder Mechanic Name Role Phone Max Arizmendi Primary Care Provider [phone] Allergies Active Allergy Reactions Criticality Noted Date [...] empty stomach. 90 tablet 1 2 Active Lch-IsKnwm-VH-DHA (Vitafol-One) 29-1-200 MG CapIndications:Esha haas is a [...] (09/30/2020): Added automatically from request for surgery [id number] Assessment & Plan (11/03/2020 10:48 AM EDT): [...] was recommended to per her provider at [facility] Assessment & Plan (08/30/2021 4:27 [...] past but not on meds since 2018. dental services director referral placed. DF Assessment & [...] (03/22/2018): Added automatically from request for surgery [id number] Assessment & Plan (04/27/2020 4:24 PM EDT): Patient reports history of herniated disk and sciatica. Will have anesthesia consult later in . Lumbar radiculopathy 03/19/2018 020 Overview (03/22/2018): Added automatically from request for surgery [id number] Immunizations Immunization Administration Dates Next Due Influenza [...] to Confirmation (09/29/2020 3:36 PM EDT) Pathologist [facility] HIV 1/2 Ag/Ab CMIA Nonreactive Nonreactive [facility] Comment: Results show no evidence of infection by HIV 1/2. If clinically indicated, repeat CMIA or test by nucleic acid amplification. Performed at [facility], [place], [place] License 0385 CLIA [id number] Blood specimen (specimen) Blood specimen / Unknown 09/29/2020 3:36 PM EDT 09/29/2020 6:22 PM EDT us Audrey Luevano MD LAB BLOOD ORDERABLES Marizol l Result [facility] * Hepatitis C Virus (HCV) Antibody (04/08/2020 11:00 AM EDT) Pathologist [facility] Hepatitis C Antibody 0.15 0.00 - 0.79 S/CO ratio [facility] Hepatitis C Antibody Interpretation Nonreactive Nonreactive [facility] Comment:Performed at [facility], [place], [place] License [address] CLIA [id number] Blood specimen (specimen) Heel structure / Unknown 04/08/2020 11:00 AM EDT 04/08/2020 12:32 PM EDT us Rachele Cheung MD LAB BLOOD ORDERABLES Final Result [facility] from Last 3 Months or Most Recently Relevant to Health Maintenance Insurance [facility] Advance Directives * Full [...] 6:42 PM 06/28/2019 5:12 PM Care Teams Video Recorder Mechanic Relationship Specialty Start Date End Date Max Arizmendi [address] [place] [phone] PCP - General 09/01/19
--- OUTSIDE RECORDS SUMMARY | 2025-06-02 17:37 | XMS_ITS | Clinical Summary ---
Author Organization [employer] Address [address] [place] [address] Care Team Providers Care Hat Forming Machine Feeder Name Role Phone Betsy Waldrop MD Primary Care Provider [phone] Allergies Active Allergy Reactions Criticality Noted Date [...] 16 g 2 03/09/20 25 026 Active Ventolin HFA 108 (90 Base) MCG/ACT inhalerIndications :Wheezing INHALE 2 PUFFS EVERY 4 HOURS NEEDED FOR WHEEZING 18 g 04/28/20 25 Active Active Problems Problem Noted Date Diagnosed [...] to pain management Bipolar II disorder ([facility]) 05/13/2020 Overview (12/09/2023): ID: Yani [...] intervention , Patient to reach out to [facility] team as needed, Patient to [...] Center 10/10/2023 3:15 PM Betsy Waldrop MD [facility] Insomnia due to other mental disorder [...] recommended reduction of 20-30% of maintenance calories; mold swabber referral offered. Recommended to decrease soda and [...] (08/30/2022): Added automatically from request for surgery [id number] Last Assessment & Plan: Continue diet control. Patient did not bring meter or log today. Seen by nutrition Gestational thrombocytopenia 09/01/2020 10/04/2022 Overview (10/03/2022): Plts 144 on 09/01/20 Needs repeat CBC next visit (10/06/20) Last Assessment & Plan: Plt 158 at last visit 10/27/20 Encounters Date Type Department Care Team Description 05/25/2025 Telephone [facility] MEDICINE [address], [place] [phone] Betsy Waldrop MD insurance referral 05/06/2025 Telephone [facility] MEDICINE [address], [place] [phone] Betsy Waldrop MD FYI 05/06/2025 Orders Only GENERIC EXTERNAL DATA DEPARTMENT Provider, Generic External Data 05/03/2025 Orders Only [facility] [address] [place] [address] India Parsons CNP Lumbar back pain with radiculopathy affecting lower extremity (Primary Dx); Polyarthralgia 04/27/2025 Refill [facility] [address] [place] [address] India Parsons CNP Wheezing 03/09/2025 10:45 AM EDT Office Visit [facility] [address] [place] [address] India Parsons CNP Encounter for screening for malignant neoplasm of colon (Primary Dx); Encounter for physical examination; Acquired hypothyroidism; Iron deficiency anemia due to chronic blood loss; Polyarthralgia; Sinus congestion; Positive NORRIS (antinuclear antibody); Menorrhagia with regular cycle; Wheezing 03/09/2025 Travel 03/08/2025 Travel 03/05/2025 Telephone [facility] [address] [place] [address] Betsy Waldrop MD chart prep from Last [...] [facility] OPTOMETRY [address] [place] [address] Rachele Arora, OD [address] [place] [address] Health Maintenance Due Date Last Done Comments [...] 03/01/2026 03/01/2025 Depression Screening 03/09/2026 03/09/2025, 03/09/20 25 Family Planning (PISQ) 03/09/2026 03/09/2025 Tobacco Screening [...] 6 PM EDT 05/06/2025 2:13 PM EDT [facility] - 05/10/2025 4:51 PM EST ----- ------- Name: Yani Obrien Age/Sex: 45/F : 1980 [facility]#: [id number] Unit#: [id number] Attend Dr: Partha Kelsey MD Re05/06/25 Status: [facility] Location: [facility] Disch: ----- ------- SPEC : [id number] RECD: 05/06/25 STATUS: MINDY RAI NUM: [id number] ANA: 05/06/25-1236 [facility] DR: Partha Kelsey MD ENTERED: 05/06/25 SP TYPE: Surgical OTHR DR: India Parsons RELIABILITY MANAGER ORDERED: Gross Micro L3 Diagnosis Soft tissue, [...] of skin. Sectioning shows no gross abnormalities. Corporate Associate sections, including skin are submitted in cassettes A1. (RJD) IHC S/NG Disclaimer NOTE: Unless otherwise stated, all tissue is formalin-fixed and paraffin-embedded. Some or all of the immunohistochemical tests reported herein may have been developed and their performance characteristics determined by [facility]. They have not been cleared or approved by the U.S. Food and Drug Administration (FDA). However, the FDA has determined that such clearance or approval is not necessary. This laboratory is certified under the Clinical Laboratory Improvement Amendments of 1988 (CLIA) as qualified to perform high complexity clinical laboratory testing. Copies To: Partha Kelsey MD [facility] Weight Management [facility] [address] [place] [id number] CONTINUED ON NEXT PAGE ----- ------- Name: Yani Obrien Age/Sex: 45/F : 1980 Unit#: [id number] Attend Dr: Partha Kelsey MD Re05/06/25 Status: [facility] Location: [facility] Disch: ----- ------- SPEC : [id number] RECD: 05/06/25 STATUS: MINDY RAI NUM: [id number] ANA: 05/06/256 [facility] DR: Partha Kelsey MD ENTERED: 05/06/25 SP TYPE: Surgical OTHR DR: India Parsons NP ORDERED: Gross Micro L3 Copies To: (Continued) India Parsons NP [address] [address] ----- ------- Signed (signature on file) Ana Anthony MD 05/10/25 1651 ----- ------- END OF REPORT Generic External Data Provider LAB CYTOLOGY ORDE RABLES Final Result Performing Organization Address [facility]/ZIP Co de Phone Number [facility] [address] [place] [phone] * HCG, Qualitative, Urine (05/06/2025 8:11 AM EDT) Pathologist [facility] Urine NEGATIVE NEGATIVE [facility] Comment:This test was develo ped to detect early . Falsenegative results may occur after the 5th - 7th week ofpregnancy when using this test method. If clinicallyindicated, consider a serum hCG. 05/06/2025 8:11 AM EDT 05/06/2025 8:21 AM EDT Generic External Data Provider LAB URINE ORDERAB LES Final Result Performing Organization Address [facility]/ZIP Co de Phone Number [facility] [address], [place] [phone] * (ABNORMAL) CBC auto differential (04/27/2025 3:02 PM EDT) Only the most recent of2 resultswithin the time period is included. Pathologist [facility] White Blood Count 5.0 4.8 - 10.8 X10*3/uL [facility] Red Blood Count 4.36 4.20 - 5.50 X10*6/uL [facility] Hemoglobin 10.5(L) 12.0 - 16.0 g/dl [facility] Hematocrit 34.1(L) 37.0 - 47.0 % [facility] Mean Corpuscular Volume 78.2(L) 80.0 - 98.0 fL [facility] Mean Corpuscular Hemoglobin 24.1(L) 27.0 - 33.0 pg [facility] Mean Corpuscular HGB Conc 30.8(L) 31.0 - 35.0 g/dl [facility] Red Cell Distribution Width 21.0(H) 11.0 - 16.0 % [facility] Platelet Count 184 160 - 400 X10*3/uL [facility] Mean Platelet Volume 10.0 9.4 - 12.3 fL [facility] Neutrophils Percent Auto 56.5 45 - 73 % [facility] Imm Gran Pct Auto 0.4 0.0 - 0.4 % [facility] Lymphocytes Percent Auto 31.1 20 - 40 % [facility] Monocytes Percent Auto 8.4 2 - 11 % [facility] Eosinophils Percent Auto 2.0 0 - 4 % [facility] Basophils Percent Auto 1.6 0 - 2 % [facility] NRBC Pct Auto 0.0 0.0 - 0.2 /100WBC [facility] Neutrophils Absolute Auto 2.8 2.0 - 8.3 x10*3/uL [facility] Imm Gran Abs Auto 0.02 0.00 - 0.03 X10*3/uL [facility] Lymphocytes Absolute Auto 1.6 1.2 - 4.9 X10*3/uL [facility] Monocytes Absolute Auto 0.4 0.1 - 1.2 X10*3/uL [facility] Eosinophils Absolute Auto 0.1 0.0 - 0.4 X10*3/uL [facility] Basophils Absolute Auto 0.1 0.0 - 0.2 X10*3/uL [facility] NRBC Abs Auto 0.000 0.0 - 0.012 X10*3/uL [facility] 04/27/2025 3:02 PM EDT 04/27/2025 3:17 PM EDT Generic External Data Provider LAB BLOOD ORDERAB LES Final Result Performing Organization Address [facility] Co de Phone Number [facility] [address] [place] [phone] * Zinc (04/27/2025 3:02 PM EDT) Zinc 65 60 - 130 mcg/dL [facility] Comment:This test was develo ped and its analytical performancecharacteristics have been determined by [employer] [place], [place]. It hasnot been cleared or approved by the U.S. Food and DrugAdministration. This assay has been validated pursuantto the CLIA regulations and is used for clinicalpurposes.THIS TEST WAS PERFORMED AT:[email or web address] [place] [address]PARDZYICOLIN GALVAN MD,PHD 04/27/2025 3:02 PM EDT 04/27/2025 3:17 PM EDT Generic External Data Provider LAB BLOOD ORDERAB LES Final Result Performing Organization Address [facility] de Phone Number [facility] [address] [place] [phone] * Type and screen (04/27/2025 3:02 PM EDT) Blood Type BP [facility] Antibody Screen NEGATIVE [facility] 04/27/2025 3:02 PM EDT 04/27/2025 3:29 PM EDT Narrative [facility] - 04/27/2025 4:12 PM EDT Spec expiration changed by NISHANT on 04/27/25Reason: PAT SSSWITNESSED BY AGUSTIN.NURSING:Call Blood Bank ([phone]) to band patient on admission.Type and Screen in effect until 2300 on 05/06/25 Generic External Data Provider LAB BLOOD BANK TE ST ORDERABLES Final Result Performing Organization Address [facility] Co de Phone Number [facility] [address] [place] [phone] * Hemoglobin A1c (04/27/2025 3:02 PM EDT) Hemoglobin A1c 4.8 <6.0 % [facility] Comment:Hemoglobin A1C Refer ence Range Adults: 4.8 - 6.0 % Non diabetic: < 6.0 % Goal: < 7.0 %Additional Action Suggested: > 8.0 %Note: Hemoglobin A1c results are invalid for patients with abnormal amounts of HbF. Blood transfusions may impact the HbA1c concentration in the patient sample. Estimated Average Glucose 91 mg/dL [facility] Comment:eAG = Estimated ave rage glucose which is %A1C expressed asaverage glucose, using the formula of the W5K-MqxeuhvWpftbub Glucose study (ADAG), Diabetes Care, Vol.31,#8,2007 04/27/2025 3:02 PM EDT 04/27/2025 3:17 PM EDT Generic External Data Provider LAB BLOOD ORDERAB LES Final Result Performing Organization Address [facility] Co de Phone Number [facility] [address] [place] [phone] * Vitamin B12 (04/27/2025 3:02 PM EDT) Vitamin B12 466 200 - 900 pg/mL [facility] Comment:NORMAL 200-900 PG/ML INDETERMINATE 160-199 PG/ML DEFICIENT < 160 PG/ML 04/27/2025 3:02 PM EDT 04/27/2025 3:17 PM EDT Generic External Data Provider LAB BLOOD ORDERAB LES Final Result Performing Organization Address [facility]/ZIP Co de Phone Number [facility] [address] [place] [address] [phone] * Hepatitis B surface antigen, EIA (03/12/2025 12:56 PM EDT) Pathologist [facility] Hepatitis B Surface Ag Negative Negative [facility] Blood Venous blood specimen / Unknown 03/12/2025 12:56 PM EDT 03/12/2025 2:21 PM EDT [facility] LAB BLOOD ORDERABLES Marizol l Result Performing Organization Address [facility] Co de Phone Number [facility] [address] [place] [phone] * Hepatitis B Core Antibody, Total (03/12/2025 12:56 PM EDT) [facility] Hepatitis B Core Antibody Nonreactive Nonreactive [facility] Blood Venous blood specimen / Unknown 03/12/2025 12:56 PM EDT 03/12/2025 2:21 PM EDT [facility] LAB BLOOD ORDERABLES Marizol l Result Performing Organization Address [facility] Co de Phone Number [facility] [address] [place] [phone] * Hepatitis B Surface Antibody, Qualitative (03/12/2025 12:56 PM EDT) Pathologist [facility] ~Hepatitis B Surface Antibody REACTIVE Nonreactive [facility] Comment:REACTIVE: > 11.99 mI U/mL Blood Venous blood specimen / Unknown 03/12/2025 12:56 PM EDT 03/12/2025 2:21 PM EDT [facility] LAB BLOOD ORDERABLES Marizol l Result Performing Organization Address City/[facility]/ZIP Co de Phone Number [facility] [address] [place] [phone] [phone] * Lipid Panel, Standard (03/12/2025 12:56 PM EDT) Triglycerides 32 <150 mg/dL [facility] Comment:Desirable Triglyceri de: less than 150 mg/dLBorderline High Triglyceride 150-199 mg/dLHigh Triglyceride: 200-499 mg/dLVery High Triglyceride: greater than or equal to 5OO mg/dL Cholesterol 156 <200 mg/dL [facility] Comment:Desirable Cholestero l: less than 200 mg/dLBorderline High Cholesterol: 200-239 mg/dLHigh Cholesterol: greater than 239 mg/dL LDL Cholesterol Calculated 87 <100 mg/dL [facility] Comment:Desirable LDL: less than 100 mg/dLNear Optimal/Above Optimal LDL: 110- 129 mg/dLBorderline High LDL: 130-159 mg/dLHigh LDL: 160-189 mg/dLVery High LDL: greater than or equal to 190 mg/dL HDL Cholesterol 63 >40 mg/dL [facility] Comment:Desirable HDL: great er than 40 mg/dL Note: This HDL assay may give artificially low results in patients with liver disease. Blood Venous blood specimen / Unknown 03/12/2025 12:56 PM EDT 03/12/2025 2:21 PM EDT [facility] LAB BLOOD ORDERABLES Marizol l Result [facility] [address] [place] [phone] * (ABNORMAL) Comprehensive Metabolic Panel (03/12/2025 12:56 PM EDT) Sodium 139 135 - 145 mmol/L [facility] Potassium 3.7 3.3 - 5.1 mmol/L [facility] Chloride 107 96 - 108 mmol/L [facility] Carbon Dioxide 25 22 - 29 mmol/L [facility] Anion Gap 11(L) 12 - 20 [facility] Urea Nitrogen (BUN) 11 9 - 16 mg/dL [facility] Creatinine, Serum 0.70 0.5 - 1.4 mg/dL [facility] Estimated Glomerular Filt Rate >60 [facility] Comment:Chronic Kidney Disea se: Estimated GFR < 60 mL/min/1.08f0Temoqv Kidney Disease: Estimated GFR < 15 mL/min/1.73m2 Glucose 78 60 - 115 mg/dL [facility] Calcium 8.8 8.4 - 10.2 mg/dL [facility] Bilirubin, Total 0.4 0.0 - 1.0 mg/dL [facility] Aspartate Amino Transferase 25 5 - 31 U/L [facility] Alanine Aminotransferase 16 0 - 31 U/L [facility] Total Protein 6.8 6.5 - 8.0 g/dL [facility] Albumin Level 4.2 3.5 - 5.0 g/dL [facility] Alkaline Phosphatase 43 39 - 117 U/L [facility] Blood Venous blood specimen / Unknown 03/12/2025 12:56 PM EDT 03/12/2025 2:21 PM EDT India Parsons CNP LAB BLOOD ORDERABLES Marizol l Result Performing Organization Address [facility] de Phone Number [facility] [address] [place] [phone] * Hepatitis C Antibody with Reflex to HCV, RNA, Quantitative, Real-Time PCR (05/26/2024 3:54 PM EST) Hepatitis C Antibody Nonreactive Nonreactive [facility] Comment:Antibodies to HCV no t detected; does not exclude early acuteHCV infection. Blood Venous blood specimen / Unknown 05/26/2024 3:54 PM EST 05/26/2024 3:54 PM EST us Betsy Waldrop MD LAB BLOOD ORDERABLES Final Re sult Performing Organization Address [facility] Co de Phone Number [facility] [address] [place] [phone] * HIV-1/2 Antigen and Antibodies, Fourth Generation, with Reflexes (05/26/2024 3:54 PM EST) HIV AB/AG Nonreactive Nonreactive [facility] Comment:HIV-1 p24 Ag and/or HIV-1/HIV-2 Ab not detected.A test result that is nonreactive does not exclude thepossibility of exposure to or infection with HIV-1 and/orHIV-2. Nonreactive results in this assay for individualswith prior exposure to HIV-1 and/or HIV-2 may be due toantigen and antibody levels that are below the limit ofdetection of this assay.The [email or web address] HIV Ag/Ab Combo assay result andsupplemental assay results should be interpreted inconjunction with the patient's clinical presentation,history and other laboratory results. If the results areinconsistent with clinical evidence, additional testing issuggested to confirm the result. Blood Venous blood specimen / Unknown 05/26/2024 3:54 PM EST 05/26/2024 3:54 PM EST us Betsy Waldrop MD LAB BLOOD ORDERABLES Final Re sult [facility] [address] [place] [phone] * Pap Smear (02/04/2024 12:00 AM EDT) Pathologist [facility] SOURCE: SEE NOTE [facility] Comment:None given Report Status: [facility] Clinical Information: SEE NOTE [facility] Comment:None given LMP: SEE NOTE [facility] Comment:NONE GIVEN Prev. PAP: SEE NOTE [facility] Comment:NONE GIVEN Prev. BX: SEE NOTE [facility] Comment:NONE GIVEN Statement Of Adequacy: SEE NOTE [facility] Comment:Satisfactory for gavin luation.Endocervical/transformation zone componentpresent. General Categorization: [facility] Interpretation/Result: SEE NOTE [facility] Comment:Cytology Results: Ne gative for intraepitheliallesion or malignancy. Cytology Comment SEE NOTE [facility] Comment:This Pap test has be en evaluated with computerassisted technology. Theatrical Trouper: SEE NOTE [facility] Comment:YP, CT(ASCP)CT scree jessica location: [address] [address] Review Theatrical Trouper: SEE NOTE [facility] Comment:SL, CT(ASCP)CT scree jessica location: [address] [address] Pathologist TNP [facility] PAP Infection TNP [facility] See Note SEE NOTE [facility] Comment:EXPLANATORY NOTE:The Pap is a screening test for cervical cancer. It isnot a diagnostic test and is subject to false negativeand false positive results. It is most reliable when asatisfactory sample, regularly obtained, is submittedwith relevant clinical findings and history, and whenthe Pap result is evaluated along with historic andcurrent clinical information.THIS TEST WAS PERFORMED AT:[email or web address] [address] [address]RLMUDPERLA VALLE MD Pap Vial Vaginal structure / Unknown 02/04/2024 02/04/2024 Narrative [facility] - 02/07/2024 10:36 AM EDT SEE SCANNED RESULTS IN EMR us Betsy Waldrop MD LAB PATHOLOGY ORDERABLES Marizol benitez Result [facility] [address] [place] [phone] [phone] * HPV mRNA E6/E7 w/Reflex to HPV Genotypes 16, 18/45 (02/04/2024 12:00 AM EDT) HPV nRNA E6/E7 NOT DETECTED [facility] Comment:Methodology: Transcr iption-Mediated AmplificationThis assay detects E6/E7 viral messenger RNA (mRNA) from 14high-risk HPV types(16,18,31,33,35,39,45,51,52,56,58,59,66,68).Cervical sources are required for HPV testing.If a vaginal source from a patient who has had atotal hysterectomy with removal of cervix wassubmitted, please contact the testing laboratoryfor alternative testing options.For additional information, please refer tohttp://education.[employer]/faq/XJK632b0(This link if provided for information/educational purposes only.)THIS TEST PERFORMED AT:[email or web address] [address] [phone] DIRECTOR: PERLA VALLE MD HPV mRNA E6/E7 [facility] HPV 16 RNA [facility] HPV 18/45 RNA [facility] Vaginal Fluid Cervix uteri structure / Unknown 02/04/2024 02/04/2024 Narrative [facility] - 02/07/2024 10:36 AM EDT SEE SCANNED RESULTS IN EMRCollection Date: [id number] by: FIDE Carr: Cervix us Betsy Waldrop MD LAB CYTOLOGY ORDERABLES Final Result Performing Organization Address City/State/[facility] Co de Phone Number [facility] [address] [place] [phone] from Last 3 Months or Most Recently Relevant to Health Maintenance [place] [address] [place] [address] C3 Care Teams Hat Forming Machine Feeder Relationship Specialty Start Date End Date Betsy Waldrop MD [address] [place] [phone] PCP - General Family Medicine 08/30/22 Nalini A 05/07/25
--- OUTSIDE RECORDS SUMMARY | 2025-06-02 17:37 | XMS_ITS | Encounter Summary ---
Author Organization [employer] Address [address] [place] [address] Care Team Providers Care Grain Handler Name Role Phone Betsy Waldrop MD Primary Care Provider [phone] Reason for Visit * Reason Onset Date Comments FYI 05/06/2025 Encounter Details Date Type Department Care Team (Late st Contact Info) Description 05/06/2025 Telephone [facility] MEDICINE [address] [place] [address] Betsy Waldrop MD [address] [place] [address] FYI Social History Tobacco Use Types Packs/Day [...] Aura Scott - 05/25/2025 1:03 PM EST .[facility] * Telephone Encounter - Jackson Irving - 05/06/2025 10:57 AM EDT Tc from Doreen REILLY stating pt is currently at [facility] for scheduled panniculectomy, they donot expect pcp to sign orders since they will most likely be signed by the surgeon. They just wanted pcp to be aware that they will be involved. documented in this encounter Plan of Treatment Upcoming Encounters Date Type Department Care Team (Late st Contact Info) Description 10/01/2025 2:00 PM EDT Office Visit [facility] OPTOMETRY [address] [place], [place] [phone] Rachele Arora, ROBERTO [address] [place] [address] documented as of this encounter Visit Diagnoses Not on filedocumented in this encounter Additional Health Concerns Assessment Noted Time PHQ-9 Depression Total Score: 2 03/09/20 25 11:01 AM EDT documented as of this encounter Care Teams Grain Handler Relationship Specialty Start Date End Date Betsy Waldrop MD [address] [place] [address] GABRIEL Gayle [phone] PCP - General Family Medicine 08/30/22 Nalini REILLY 05/07/25 documented as of this encounter
--- OUTSIDE RECORDS SUMMARY | 2025-06-02 17:38 | XMS_ITS | Clinical Summary ---
Author Organization [facility] Address [address] [place] [address] Care Team Providers Care Manager Women Name Role Phone Unavailable Primary Care Provider [...] with Friends and Family Never 09/10/2019 Attends Congregational Services Never 09/09 Active Member of Clubs [...] this topic ObrienVeroniqueYani Personal/Family Self 1980 [address] [address] Obrien,Yani [facility] Self 1980 [address] [address]
--- OUTSIDE RECORDS SUMMARY | 2025-06-02 17:38 | XMS_ITS | Clinical Summary ---
Author Organization [facility] Address [address] [place] [address] Care Team Providers Care Car Salesperson Name Role Phone Unavailable Primary Care Provider [...]
--- OUTSIDE RECORDS SUMMARY | 2025-06-02 17:38 | XMS_ITS | Encounter Summary ---
Author Organization [employer] Address [address] [facility] 7t [place] [address] Care Team Providers Care History Professor Name Role Phone Betsy Waldrop MD Primary Care Provider [phone] Encounter Details Date Type Department Care Team (Late Contact Info) Description 12/04/2022 Abstract [facility] Information Management [address] [place] [address] Betsy Waldrop MD [address] [place] [address] Social History Tobacco Use Types Packs/Day Years [...] Description 10/01/2025 2:00 PM EDT Office Visit [facility] OPTOMETRY [address] [place] [address] Rachele Arora, OD [address] [place] [address] documented as of this encounter Visit Diagnoses Not on filedocumented in this encounter Additional Health Concerns Assessment Noted Time PHQ-9 Depression Total Score: 12 023 1:23 PM EDT documented as of this encounter Care Teams History Professor Relationship Specialty Start Date End Date Betsy Waldrop MD [address] [place] [address] PCP - General Family Medicine [facility] documented as of this encounter
--- OUTSIDE RECORDS SUMMARY | 2025-06-02 17:38 | XMS_ITS | Encounter Summary ---
Author Organization [employer] Address [address] 7[address] [place] [address] Care Team Providers Care Fruit Grader Name Role Phone Betsy Waldrop MD Primary Care Provider [phone] Reason for Visit * Reason Onset Date Comments Nurse Triage 04/23/2024 Encounter Details Date Type Department Care Team (Late st Contact Info) Description 04/23/2024 Telephone [facility] [address] [place], [place] [phone] Betsy Waldrop MD [address] [place] [address] Nurse Triage Social History Tobacco Use Types [...] the past 12 months, has t he [employer] gas, oil or water company threatened to [...] Description 10/01/2025 2:00 PM EDT Office Visit [facility] OPTOMETRY [address] [place] [address] Rachele Arora, OD [address] [place] [address] documented as of this encounter Visit Diagnoses Not on filedocumented in this encounter Additional Health Concerns Assessment Noted Time PHQ-9 Depression Total Score: 13 024 8:42 AM EDT documented as of this encounter Care Teams Fruit Grader Relationship Specialty Start Date End Date Betsy Waldrop MD [address] [place] [address] PCP - General Family Medicine 08/30/22 Nailni REILLY 05/07/25 documented as of this encounter
--- OUTSIDE RECORDS SUMMARY | 2025-06-02 17:38 | XMS_ITS | Encounter Summary ---
Author Organization [employer] Address [address] [facility] 7t [place] [address] Care Team Providers Care Associate Accountant Name Role Phone Betsy Waldrop MD Primary Care Provider [phone] Reason for Visit * Reason Onset Date Comments Reschedule 12/17/2023 chart prep 12/17/2023 Encounter Details Date Type Department Care Team ([facility] st Contact Info) Description 12/17/2023 Telephone [facility] MED & PEDS [address] [place] [address] Betsy Waldrop MD [address] [place] [address] Reschedule; chart prep Social History Tobacco Use [...] 12/16 PAP appointment. Please contact pt at [phone] documented in this encounter Plan of Treatment Upcoming Encounters Date Type Department Care Team (Late st Contact Info) Description 10/01/2025 2:00 PM EDT Office Visit [facility] OPTOMETRY [address] [place], [place] [phone] Rachele Arora, OD [address] [place], [place] [phone] documented as of this encounter Visit Diagnoses Not on filedocumented in this encounter Additional Health Concerns Assessment Noted Time PHQ-9 Depression Total Score: 13 024 8:42 AM EDT documented as of this encounter Care Teams Associate Accountant Relationship Specialty Start Date End Date Betsy Waldrop MD [address] [place] [address] PCP - General Family Medicine 08/30[facility]22 [facility] documented as of this encounter
--- OUTSIDE RECORDS SUMMARY | 2025-06-02 17:38 | XMS_ITS | Encounter Summary ---
Author Organization [employer] Address [address] 7t [place] [address] Care Team Providers Care Hand Suture Winder Name Role Phone Betsy Waldrop MD Primary Care Provider [phone] Encounter Details Date Type Department Care Team (Late st Contact Info) Description 09/26/2023 Telephone [facility] MEDICINE [address] [place] [address] Betsy Waldrop MD [address] [place] [address] Social History Tobacco Use Types Packs/Day Years [...] one being able to take her to [facility]. * Telephone Encounter - Lorena Katz - 09/26/2023 10:32 AM EDT Tc from pt requesting to switch appt for today 09/25 at 2:45 to tele due to son with asthma. documented in this encounter Plan of Treatment Upcoming Encounters Date Type Department Care Team (Late st Contact Info) Description 10/01/2025 2:00 PM EDT Office Visit [facility] OPTOMETRY [address] [place], [place] [phone] Rachele Arora, ROBERTO [address] [place] [address] documented as of this encounter Visit Diagnoses Not on filedocumented in this encounter Additional Health Concerns Assessment Noted Time PHQ-9 Depression Total Score: 12 023 1:23 PM EDT documented as of this encounter Care Teams Hand Suture Winder Relationship Specialty Start Date End Date Betsy Waldrop MD [address] [place] [address] PCP - General Family Medicine 08/30/22 Nalini REILLY 05/07/25 documented as of this encounter
--- OUTSIDE RECORDS SUMMARY | 2025-06-02 17:38 | XMS_ITS | Encounter Summary ---
Author Organization [facility] Address [address] [place] [address] Care Team Providers Care Private Investigator Surveillance Name Role Phone Max Arizmendi Primary Care Provider Tammy Naylor LPCA Unavailable Anusha Molina MISSILE FACILITIES REPAIRER Unavailable Rachele Ornelas CVOR NURSE Unavailable Encounter Details Date Type Department Care Team (Late st Contact Info) Description 09/29/2020 Prep for Surgery [facility] [address] [place] [address] [phone] Lori Lau MD [address] [place] [address] Diet controlled gestational diabetes mellitus (GDM) in [...] Primary documented in this encounter Care Teams Private Investigator Surveillance Relationship Specialty Start Date End Date Max Arizmendi [address] [place] [address] PCP - General 09/01/19 Tammy Naylor LPCA [address] [place] [address] Clinician Social Work 05/03/20 02/21/22 Anusha Molina APRN [address] [place] [address] Primary Attending Psychiatry, General 05/06/2002/22 Rachele Ornelas LCSW [address] [place] [address] Manufacturing Inspector Clinical Social Work 05/24/20 02/21/22 documented as of this encounter
== END 2025-06-02 15:53 | disposition home or self-care (01) ==
LOC: HO.HBS 15:04
PROVIDERS: Visit Provider Physician Assistant Surgical
DX: Z71.3 Dietary counseling and surveillance (principal); Z98.890 Other specified postprocedural states; Z98.84 Bariatric surgery status
CPT/HCPCS: 99024

== ENCOUNTER → 2025-06-02 15:04 | Outpatient (BNVA) | payer MEDICAID, SELFPAY | PROVIDERS: Visit Provider Physician Assistant Surgical | DX: Z98.890 Other specified postprocedural states (principal); Z98.84 Bariatric surgery status | CPT/HCPCS: 99212 ==

== ENCOUNTER 2025-06-09 14:56 | Outpatient (AMB) | payer MEDICAID, SELFPAY ==
--- NOTE | 2025-06-09 15:01 | MHC.OFFVISWM ---
VS Expanded 06/09/25 15:08 BP 125/68 Blood Pressure Location Lt brachial Blood Pressure Position Sitting Pulse 66 Pulse Source Pulse Oximeter Temp 97.9 F Temperature Source Temporal Artery Scan Pulse Oximetry 100 Oxygen Delivery Method Room Air Intake Visit Reasons: (OV) s/p Panniculectomy 05/06/25 Animal Biologist Required: No Accompanied by: Self / Same As Patient Allergies diphenhydramine (From Benadryl) Adverse Reaction (Mild, Verified 06/09/25 15:04) palpitations/anxiety Medication List - Last Reconciled 06/09/25 by YANN Grimm biotin (Hair, Skin and Nails (biotin)) 10,000 mcg PO DAILY cephalexin 500 mg PO Q12H iron,carbonyl-vitamin C 65 mg iron- 125 mg (Vitron-C) 1 tab PO DAILY levothyroxine 100 mcg PO DAILY multivitamin (Daily Multi-Vitamin tablet) 1 tab PO DAILY HPI Comments Details: 45 yo woman presents s/p panniculectomy 05/06/2025. 5 weeks postop Drain output 5-15cc per day compliant with meal plan, abd binder, and ABX. No fevers. [facility] Medical History Postgastrectomy malabsorption Depression Bipolar disorder Iron deficiency anemia PONV (postoperative nausea and vomiting) Migraines Arthritis Lico's disease Anxiety Sciatica History of herniated intervertebral disc Hyperlipidemia DJD (degenerative joint disease) GERD (gastroesophageal reflux disease) Surgical History History of sleeve gastrectomy H/O Spinal surgery Hx of section Hx of cholecystectomy Family History Mother Diabetes Hypertension Father No problems noted. Son No problems noted. Son No problems noted. Daughter No problems noted. Social History Household Members: Family Housing: Apartment Are you a primary health care administrator to a significant other at home: No Do you presently have visiting nurse or other home services: No Alcohol intake: never Patient Tobacco Use Status: Former Tobacco user Tobacco use type: Cigarette Cigarettes Per Day: 4 Years Smoked: 30 e-Cigarette/Vaping Use: Currently Using service: No Physical Exam Vital Signs: Last Vital Signs Temp 97.9 F 06/09/25 15:08 Pulse 66 06/09/25 15:08 BP 125/68 06/09/25 15:08 Pulse Ox 100 06/09/25 15:08 Oxygen Delivery Method Room Air 06/09/25 15:08 Const General: cooperative, comfortable and no acute distress Orientation/consciousness: patient oriented x3 GI Other: soft, nontender, nondistended, incisions healing well- 1 small area in center of incision open, 1 small area at inferior umbilicus open- both very superficial and only 1-2mm. drain ouput SS Neuro General: patient oriented x3 Assessment & Plan Assessment & Plan (1) S/P laparoscopic sleeve gastrectomy: Code(s): Z98.84 - Bariatric surgery status Category: Surgical (2) S/P panniculectomy: Code(s): Z98.890 - Other specified postprocedural states Category: Surgical Plan Continue high protein diet. ABX keflex 500BID x 1 more week, refill sent. Drain removed today. May drive tomorrow.? Abdominal binder at all times except for care x 1 month?MINIMUM. If there are concerns longer.? No walking outside or exercise for 6 weeks minimum. Walking in the house okay. Assistance getting up for 4 weeks minimum.?No lifting greater than?10 pounds x 2 months and no abdominal exercises x 3 months. RTC 1 week, can discuss issues of excess skin of arms and legs. Medications: Refilled cephalexin 500 mg PO Q12H 14 caps 0RF M79.3 - Panniculitis, unspecified
[2025-06-09 15:08] VITALS: BP 125/68; PULSE 66; TEMP 36.6; O2SAT 100
--- OUTSIDE RECORDS SUMMARY | 2025-06-09 17:54 | XMS_ITS | Encounter Summary ---
Author Organization [facility] Address [address] [place] [address] Care Team Providers Care Helix Coil Winder Name Role Phone Max Arizmendi Primary Care Provider [phone] Tammy Naylor LPCA Unavailable Anusha Molina ROLLER VARNISHER Unavailable Rachele Ornelas DIRECTOR OF NUCLEAR MEDICINE Unavailable [phone] Encounter Details Date Type Department Care Team (Late st Contact Info) Description 11/25/2020 Scanned Document [facility] [address] [place] [address] [phone] Josie Bingham MD [address] [place] [address] Social History Tobacco Use Types Packs/Day Years [...] on filedocumented in this encounter Care Teams Helix Coil Winder Relationship Specialty Start Date End Date Ugo Destinycheng [address] [place] [address] PCP - General 09/01/19 Tammy Naylor LPCA [address] [place] [address] Clinician Social Work 05/03/20 02/21/22 Anusha Molina APRN [address] [place] [address] Primary BH Attending Psychiatry, General 05/06/2002/22 Rachele Ornelas LCSW [address] [place] [address] Administrative Officer Clinical Social Work 05/24/20 02/21/22 documented as of this encounter
--- OUTSIDE RECORDS SUMMARY | 2025-06-09 17:54 | XMS_ITS | Clinical Summary ---
Author Organization [facility] Address [address] [place] [address] Care Team Providers Care Auto Painter Helper Name Role Phone Max Arizmendi Primary Care Provider [phone] Allergies Active Allergy Reactions Criticality Noted Date [...] empty stomach. 90 tablet 1 2 Active Zhg-OrHiqs-FY-DHA (Vitafol-One) 29-1-200 MG CapIndications:Esha haas is a [...] (09/30/2020): Added automatically from request for surgery [id number] Assessment & Plan (11/03/2020 10:48 AM EDT): [...] was recommended to per her provider at [facility] Assessment & Plan (08/30/2021 4:27 [...] symptomatic, unchanged, aggravated by current stressor(s) Plan: aYni was counseled about and agreed to try [...] past but not on meds since 2018. client services specialist referral placed. DF Assessment & Plan (04/27/2020 [...] (03/22/2018): Added automatically from request for surgery [id number] Assessment & Plan (04/27/2020 4:24 PM EDT): Patient reports history of herniated disk and sciatica. Will have anesthesia consult later in . Lumbar radiculopathy 03/19/2018 020 Overview (03/22/2018): Added automatically from request for surgery [id number] Immunizations Immunization Administration Dates Next Due Influenza [...] to Confirmation (09/29/2020 3:36 PM EDT) Pathologist [facility] HIV 1/2 Ag/Ab CMIA Nonreactive Nonreactive HOSPITAL LAB Comment: Results show no evidence of infection by HIV 1/2. If clinically indicated, repeat CMIA or test by nucleic acid amplification. Performed at [facility], [place], [place] License 0385 CLIA [id number] Blood specimen (specimen) Blood specimen / Unknown 09/29/2020 3:36 PM EDT 09/29/2020 6:22 PM EDT us Audrey Luevano MD LAB BLOOD ORDERABLES Marizol l Result HOSPITAL LAB * Hepatitis C Virus (HCV) Antibody (04/08/2020 11:00 AM EDT) Pathologist [facility] Hepatitis C Antibody 0.15 0.00 - 0.79 S/CO ratio HOSPITAL LAB Hepatitis C Antibody Interpretation Nonreactive Nonreactive HOSPITAL LAB Comment:Performed at [facility], [place], [place] License 0385 CLIA [id number] Blood specimen (specimen) Heel structure / Unknown [...] 6:42 PM 06/28/2019 5:12 PM Care Teams Auto Painter Helper Relationship Specialty Start Date End Date Max Arizmendi [address] [place] [address] PCP - General 09/01/19
--- OUTSIDE RECORDS SUMMARY | 2025-06-09 17:54 | XMS_ITS | Clinical Summary ---
Author Organization [facility] Prior to 12/05/24 Address [address] [place] [address] Care Team Providers Care Rocket Scientist Name Role Phone Unavailable Primary Care Provider [...] with Friends and Family Never 09/10/2019 Attends Scientologist Services Never 09/09 Active Member of Clubs [...] on patient's age to complete this topic Obrien,Daisy Personal/Family Self [address] [address] Obrien,Daisy Behavioral Health Self 1980 [address] [facility] [address]
--- OUTSIDE RECORDS SUMMARY | 2025-06-09 17:54 | XMS_ITS | Encounter Summary ---
Author Organization [employer] Address [address] 7t [place] [address] Care Team Providers Care Supervisor Insulation Name Role Phone Betsy Waldrop MD Primary Care Provider [phone] Reason for Visit * Reason Onset Date Comments FYI 05/06/2025 Encounter Details Date Type Department Care Team (Late st Contact Info) Description 05/06/2025 Telephone [facility] MEDICINE [address] [place] [address] Betsy Waldrop MD [address] [place] [address] FYI Social History Tobacco Use Types Packs/Day [...] Aura Scott - 05/25/2025 1:03 PM EST .[facility] * Telephone Encounter - Jackson Irving - 05/06/2025 10:57 AM EDT Tc from Doreen REILLY stating pt is currently at [facility] [place] [place] for scheduled panniculectomy, they donot expect pcp to sign orders since they will most likely be signed by the surgeon. They just wanted pcp to be aware that they will be involved. documented in this encounter Plan of Treatment Upcoming Encounters Date Type Department Care Team (Late st Contact Info) Description 10/01/2025 2:00 PM EDT Office Visit [facility] OPTOMETRY [address] [place], [place] [phone] Rachele Arora, ROBERTO [address] [place] [address] documented as of this encounter Visit Diagnoses Not on filedocumented in this encounter Additional Health Concerns Assessment Noted Time PHQ-9 Depression Total Score: 2 03/09/20 25 11:01 AM EDT documented as of this encounter Care Teams Supervisor Insulation Relationship Specialty Start Date End Date Betsy Waldrop MD [address] [place] [address] GABRIEL Gayle [address] PCP - General Family Medicine 08/30/22 Nalini REILLY 05/07/25 documented as of this encounter
--- OUTSIDE RECORDS SUMMARY | 2025-06-09 17:54 | XMS_ITS | Encounter Summary ---
Author Organization [employer] Address [address] [facility] 7t [place] [address] Care Team Providers Care Contract Agent Name Role Phone Betsy Waldrop MD Primary Care Provider [phone] Encounter Details Date Type Department Care Team (Late Contact Info) Description 12/04/2022 [facility] Information Management [address] [place] [address] Betsy Waldrop MD [address] [place] [address] Social History Tobacco Use Types Packs/Day Years [...] Description 10/01/2025 2:00 PM EDT Office Visit [facility] OPTOMETRY [address] [place] [address] Rachele Arora, OD [address] [place] [address] documented as of this encounter Visit Diagnoses Not on filedocumented in this encounter Additional Health Concerns Assessment Noted Time PHQ-9 Depression Total Score: 12 023 1:23 PM EDT documented as of this encounter Care Teams Contract Agent Relationship Specialty Start Date End Date Betsy Waldrop MD [address] [place] [address] PCP - General Family Medicine 08/30[facility]22 [facility] documented as of this encounter
--- OUTSIDE RECORDS SUMMARY | 2025-06-09 17:54 | XMS_ITS | Clinical Summary ---
Author Organization [employer] Address [address] [place] [address] Care Team Providers Care [place] Auditor Name Role Phone Betsy Waldrop MD Primary Care Provider [phone] Allergies Active Allergy Reactions Criticality Noted Date [...] send to pain management Bipolar II disorder ([facility]) 05/13/2020 Overview (12/09/2023): ID: Yani [...] intervention , Patient to reach out to [facility] team as needed, Patient to [...] Center 10/10/2023 3:15 PM Betsy Waldrop MD [facility] Insomnia due to other mental disorder [...] recommended reduction of 20-30% of maintenance calories; personal finance instructor referral offered. Recommended to decrease soda and [...] (08/30/2022): Added automatically from request for surgery [id number] Last Assessment & Plan: Continue diet control. Patient did not bring meter or log today. Seen by nutrition Gestational thrombocytopenia 09/01/2020 10/04/2022 Overview (10/03/2022): Plts 144 on 09/01/20 Needs repeat CBC next visit (10/06/20) Last Assessment & Plan: Plt 158 at last visit 10/27/20 Encounters Date Type Department Care Team Description 05/25/2025 Telephone [facility] [address] [place], [place] [phone] Betsy Waldrop MD insurance referral 05/06/2025 Telephone [facility] [address] [place], [place] [phone] Betsy Waldrop MD FYI 05/06/2025 Orders Only GENERIC EXTERNAL DATA DEPARTMENT Provider, Generic External Data 05/03/2025 Orders Only [facility] [address] [place] [address] India Parsons CNP Lumbar back pain with radiculopathy affecting lower extremity (Primary Dx); Polyarthralgia 04/27/2025 Refill [facility] [address] [place] [address] India Parsons CNP Wheezing from Last 3 Months Immunizations Immunization Administration [...] Description 10/01/2025 2:00 PM EDT Office Visit [facility] [address] [place] [address] Rachele Arora, OD [address] [place], [place] [phone] Health Maintenance Due Date Last Done Comments [...] Smear 02/03/2029 02/04/2024 Lipid Panel 03/12/2030 03/12/2025, 12/06, 11/08/2022, Additional history exists DTaP/Tdap/Td Vaccines (3 [...] 6 PM EDT 05/06/2025 2:13 PM EDT [facility]S - 05/10/2025 4:51 PM EST ----- ------- Name: Yani Obrien Age/Sex: 45/F : 1980 Unit#: [id number] Attend Dr: Partha Kelsey MD Re05/06/25 Status: [facility] Location: [facility] Disch: ----- ------- SPEC : [id number] RECD: 05/06/25 STATUS: MINDY RAI NUM: [id number] ANA: 05/06/[address]: Partha Kelsey MD ENTERED: 05/06/25 SP TYPE: Surgical OTHR DR: India Parsons CIRCUIT DESIGN ENGINEER ORDERED: Gross Micro L3 Diagnosis Soft tissue, [...] of skin. Sectioning shows no gross abnormalities. Network Director sections, including skin are submitted in cassettes A1. (RJD) IHC S/NG Disclaimer NOTE: Unless otherwise stated, all tissue is formalin-fixed and paraffin-embedded. Some or all of the immunohistochemical tests reported herein may have been developed and their performance characteristics determined by [facility]. They have not been cleared or approved by the U.S. Food and Drug Administration (FDA). However, the FDA has determined that such clearance or approval is not necessary. This laboratory is certified under the Clinical Laboratory Improvement Amendments of 1988 (CLIA) as qualified to perform high complexity clinical laboratory testing. Copies To: Partha Kelsey MD [facility] Weight Management Program [address] [place] [id number] CONTINUED ON NEXT PAGE ----- ------- Name: Yani Obrien Age/Sex: 45/F : 1980 Unit#: [id number] Attend Dr: Partha Kelsey MD Re05/06/25 Status: [facility] Location: [facility] Disch: ----- ------- SPEC : [id number] RECD: 05/06/25 STATUS: MINDY RAI NUM: [id number] ANA: 05/06/[address] [facility] [address]: Partha Kelsey MD ENTERED: 05/06/25 SP TYPE: Surgical OTHR DR: India Parsons NP ORDERED: Gross Micro L3 Copies To: (Continued) India Parsons NP [address] [phone] ----- ------- Signed (signature on file) Ana Anthony MD 05/10/25 [id number] ----- ------- END OF REPORT Generic External Data Provider LAB CYTOLOGY ORDE RABLES Final Result Performing Organization Address [facility] Co de Phone Number [facility] [address] [place] [address] [phone] * HCG, Qualitative, Urine (05/06/2025 8:11 AM EDT) Pathologist [facility] Urine NEGATIVE NEGATIVE [facility] Comment:This test was develo ped to detect early . Falsenegative results may occur after the 5th - 7th week ofpregnancy when using this test method. If clinicallyindicated, consider a serum hCG. 05/06/2025 8:11 AM EDT 05/06/2025 8:21 AM EDT Generic External Data Provider LAB URINE ORDERAB LES Final Result Performing Organization Address [facility] de Phone Number [facility] [address] [place] [address] [phone] * (ABNORMAL) CBC auto differential (04/27/2025 3:02 PM EDT) Only the most recent of2 resultswithin the time period is included. [facility] White Blood Count 5.0 4.8 - 10.8 X10*3/uL [facility] Red Blood Count 4.36 4.20 - 5.50 X10*6/uL [facility] Hemoglobin 10.5(L) 12.0 - 16.0 g/dl [facility] Hematocrit 34.1(L) 37.0 - 47.0 % [facility] Mean Corpuscular Volume 78.2(L) 80.0 - 98.0 fL [facility] Mean Corpuscular Hemoglobin 24.1(L) 27.0 - 33.0 pg [facility] Mean Corpuscular HGB Conc 30.8(L) 31.0 - 35.0 g/dl [facility] Red Cell Distribution Width 21.0(H) 11.0 - 16.0 % [facility] Platelet Count 184 160 - 400 X10*3/uL [facility] Mean Platelet Volume 10.0 9.4 - 12.3 fL [facility] Neutrophils Percent Auto 56.5 45 - 73 % [facility] Imm Gran Pct Auto 0.4 0.0 - 0.4 % [facility] Lymphocytes Percent Auto 31.1 20 - 40 % [facility] Monocytes Percent Auto 8.4 2 - 11 % [facility] Eosinophils Percent Auto 2.0 0 - 4 % [facility] Basophils Percent Auto 1.6 0 - 2 % [facility] NRBC Pct Auto 0.0 0.0 - 0.2 /100WBC [facility] Neutrophils Absolute Auto 2.8 2.0 - 8.3 x10*3/uL [facility] Imm Gran Abs Auto 0.02 0.00 - 0.03 X10*3/uL [facility] Lymphocytes Absolute Auto 1.6 1.2 - 4.9 X10*3/uL [facility] Monocytes Absolute Auto 0.4 0.1 - 1.2 X10*3/uL [facility] Eosinophils Absolute Auto 0.1 0.0 - 0.4 X10*3/uL [facility] Basophils Absolute Auto 0.1 0.0 - 0.2 X10*3/uL [facility] NRBC Abs Auto 0.000 0.0 - 0.012 X10*3/uL [facility] 04/27/2025 3:02 PM EDT 04/27/2025 3:17 PM EDT us Generic External Data Provider LAB BLOOD ORDERAB LES Final Result [facility] [address] [place] [address] [phone] * Zinc (04/27/2025 3:02 PM EDT) Zinc 65 60 - 130 mcg/dL [facility] Comment:This test was develo ped and its analytical performancecharacteristics have been determined by [employer] [place], [place]. It hasnot been cleared or approved by the U.S. Food and DrugAdministration. This assay has been validated pursuantto the CLIA regulations and is used for clinicalpurposes.THIS TEST WAS PERFORMED AT:[employer] [place] [address]BTMWCZTCOLIN GALVAN MD,PHD 04/27/2025 3:02 PM EDT 04/27/2025 3:17 PM EDT Generic External Data Provider LAB BLOOD ORDERAB LES Final Result Performing Organization Address [facility] Co de Phone Number [facility] [address] [place] [phone] * Type and screen (04/27/2025 3:02 PM EDT) Blood Type BP [facility] Antibody Screen NEGATIVE [facility] 04/27/2025 3:02 PM EDT 04/27/2025 3:29 PM EDT Narrative [facility] - 04/27/2025 4:12 PM EDT Spec expiration changed by NISHANT on 04/27/25Reason: PAT SSSWITNESSED BY AGUSTIN.NURSING:Call Blood Bank (ext. [phone]) to band patient on admission.Type and Screen in effect until 2300 on 05/06/25 us Generic External Data Provider LAB BLOOD BANK TE ST ORDERABLES Final Result Performing Organization Address [facility]/ZIP Co de Phone Number [facility] [address] [place] [phone] * Hemoglobin A1c (04/27/2025 3:02 PM EDT) Hemoglobin A1c 4.8 <6.0 % [facility] Comment:Hemoglobin A1C Refer ence Range Adults: 4.8 - 6.0 % Non diabetic: < 6.0 % Goal: < 7.0 %Additional Action Suggested: > 8.0 %Note: Hemoglobin A1c results are invalid for patients with abnormal amounts of HbF. Blood transfusions may impact the HbA1c concentration in the patient sample. Estimated Average Glucose 91 mg/dL [facility] Comment:eAG = Estimated ave rage glucose which is %A1C expressed asaverage glucose, using the formula of the A2L-EjclhenXshfhtd Glucose study (ADAG), Diabetes Care, Vol.31,#8,2007 04/27/2025 3:02 PM EDT 04/27/2025 3:17 PM EDT [facility] External Data Provider LAB BLOOD ORDERAB LES Final Result Performing Organization Address [facility]/ZIP Co de Phone Number [facility] [address] [place] [phone] * Vitamin B12 (04/27/2025 3:02 PM EDT) Vitamin B12 466 200 - 900 pg/mL [facility] Comment:NORMAL 200-900 PG/ML INDETERMINATE 160-199 PG/ML DEFICIENT < 160 PG/ML 04/27/2025 3:02 PM EDT 04/27/2025 3:17 PM EDT [facility] External Data Provider LAB BLOOD ORDERAB LES Final Result Performing Organization Address [facility]/ZIP Co de Phone Number [facility] [address] [place] [phone] * Hepatitis B surface antigen, EIA (03/12/2025 12:56 PM EDT) Hepatitis B Surface Ag Negative Negative [facility] Blood Venous blood specimen / Unknown 03/12/2025 12:56 PM EDT 03/12/2025 2:21 PM EDT [facility] LAB BLOOD ORDERABLES Marizol l Result Performing Organization Address [facility]/ZIP Co de Phone Number [facility] [address] [place] [address] [phone] * Hepatitis B Core Antibody, Total (03/12/2025 12:56 PM EDT) Pathologist [facility] Hepatitis B Core Antibody Nonreactive Nonreactive [facility] Blood Venous blood specimen / Unknown 03/12/2025 12:56 PM EDT 03/12/2025 2:21 PM EDT [facility] LAB BLOOD ORDERABLES Marizol l Result Performing Organization Address [facility] Co de Phone Number [facility] [address] [place] [address] [phone] * Hepatitis B Surface Antibody, Qualitative (03/12/2025 12:56 PM EDT) Pathologist [facility] ~Hepatitis B Surface Antibody REACTIVE Nonreactive [facility] Comment:REACTIVE: > 11.99 mI U/mL Blood Venous blood specimen / Unknown 03/12/2025 12:56 PM EDT 03/12/2025 2:21 PM EDT [facility] LAB BLOOD ORDERABLES Marizol l Result Performing Organization Address [facility]/ZIP Co de Phone Number [facility] [address] [place] [address] [phone] * Lipid Panel, Standard (03/12/2025 12:56 PM EDT) [facility] Triglycerides 32 <150 mg/dL [facility] Comment:Desirable Triglyceri de: less than 150 mg/dLBorderline High Triglyceride 150-199 mg/dLHigh Triglyceride: 200-499 mg/dLVery High Triglyceride: greater than or equal to 5OO mg/dL Cholesterol 156 <200 mg/dL [facility] Comment:Desirable Cholestero l: less than 200 mg/dLBorderline High Cholesterol: 200-239 mg/dLHigh Cholesterol: greater than 239 mg/dL LDL Cholesterol Calculated 87 <100 mg/dL [facility] Comment:Desirable LDL: less than 100 mg/dLNear Optimal/Above Optimal LDL: 110- 129 mg/dLBorderline High LDL: 130-159 mg/dLHigh LDL: 160-189 mg/dLVery High LDL: greater than or equal to 190 mg/dL HDL Cholesterol 63 >40 mg/dL [facility] Comment:Desirable HDL: great er than 40 mg/dL Note: This HDL assay may give artificially low results in patients with liver disease. Blood Venous blood specimen / Unknown 03/12/2025 12:56 PM EDT 03/12/2025 2:21 PM EDT India Parsons [facility] LAB BLOOD ORDERABLES Marizol l Result [facility] [address] [place] [address] [phone] * (ABNORMAL) Comprehensive Metabolic Panel (03/12/2025 12:56 PM EDT) Sodium 139 135 - 145 mmol/L [facility] Potassium 3.7 3.3 - 5.1 mmol/L [facility] Chloride 107 96 - 108 mmol/L [facility] Carbon Dioxide 25 22 - 29 mmol/L [facility] Anion Gap 11(L) 12 - 20 [facility] Urea Nitrogen (BUN) 11 9 - 16 mg/dL [facility] Creatinine, Serum 0.70 0.5 - 1.4 mg/dL [facility] Estimated Glomerular Filt Rate >60 [facility] Comment:Chronic Kidney Disea se: Estimated GFR < 60 mL/min/1.40d0Efkung Kidney Disease: Estimated GFR < 15 mL/min/1.73m2 Glucose 78 60 - 115 mg/dL [facility] Calcium 8.8 8.4 - 10.2 mg/dL [facility] Bilirubin, Total 0.4 0.0 - 1.0 mg/dL [facility] Aspartate Amino Transferase 25 5 - 31 U/L [facility] Alanine Aminotransferase 16 0 - 31 U/L [facility] Total Protein 6.8 6.5 - 8.0 g/dL [facility] Albumin Level 4.2 3.5 - 5.0 g/dL [facility] Alkaline Phosphatase 43 39 - 117 U/L [facility] Blood Venous blood specimen / Unknown 03/12/2025 12:56 PM EDT 03/12/2025 2:21 PM EDT India Parsons COLD PATCHER LAB BLOOD ORDERABLES Marizol l Result Performing Organization Address [facility]/ZIP Co de Phone Number [facility] [address] [place] [phone] * Hepatitis C Antibody with Reflex to HCV, RNA, Quantitative, Real-Time PCR (05/26/2024 3:54 PM EST) Hepatitis C Antibody Nonreactive Nonreactive [facility] Comment:Antibodies to HCV no t detected; does not exclude early acuteHCV infection. Blood Venous blood specimen / Unknown 05/26/2024 3:54 PM EST 05/26/2024 3:54 PM EST Betsy Waldrop MD LAB BLOOD ORDERABLES Final Re sult Performing Organization Address [facility] Co de Phone Number [facility] [address] [place] [phone] * HIV-1/2 Antigen and Antibodies, Fourth Generation, with Reflexes (05/26/2024 3:54 PM EST) HIV AB/AG Nonreactive Nonreactive [facility] Comment:HIV-1 p24 Ag and/or HIV-1/HIV-2 Ab not detected.A test result that is nonreactive does not exclude thepossibility of exposure to or infection with HIV-1 and/orHIV-2. Nonreactive results in this assay for individualswith prior exposure to HIV-1 and/or HIV-2 may be due toantigen and antibody levels that are below the limit ofdetection of this assay.The [employer] HIV Ag/Ab Combo assay result andsupplemental assay results should be interpreted inconjunction with the patient's clinical presentation,history and other laboratory results. If the results areinconsistent with clinical evidence, additional testing issuggested to confirm the result. Blood Venous blood specimen / Unknown 05/26/2024 3:54 PM EST 05/26/2024 3:54 PM EST us Betsy Waldrop MD LAB BLOOD ORDERABLES Final Re sult [facility] [address] [place] [phone] [phone] * Pap Smear (02/04/2024 12:00 AM EDT) SOURCE: SEE NOTE [facility] Comment:None given Report Status: [facility] Clinical Information: SEE NOTE [facility] Comment:None given LMP: SEE NOTE [facility] Comment:NONE GIVEN Prev. PAP: SEE NOTE [facility] Comment:NONE GIVEN Prev. BX: SEE NOTE [facility] Comment:NONE GIVEN Statement Of Adequacy: SEE NOTE [facility] Comment:Satisfactory for gavin luation.Endocervical/transformation zone componentpresent. General Categorization: [facility] Interpretation/Result: SEE NOTE [facility] Comment:Cytology Results: Ne gative for intraepitheliallesion or malignancy. Cytology Comment SEE NOTE [facility] Comment:This Pap test has be en evaluated with computerassisted technology. Marketing Automation Analyst: SEE NOTE [facility] Comment:YP, CT(ASCP)CT scree jessica location: [address] [address] Review Marketing Automation Analyst: SEE NOTE [facility] Comment:SL, CT(ASCP)CT scree jessica location: [address] [address] Pathologist [facility] PAP Infection [facility] See Note SEE NOTE [facility] Comment:EXPLANATORY NOTE:The Pap is a screening test for cervical cancer. It isnot a diagnostic test and is subject to false negativeand false positive results. It is most reliable when asatisfactory sample, regularly obtained, is submittedwith relevant clinical findings and history, and whenthe Pap result is evaluated along with historic andcurrent clinical information.THIS TEST WAS PERFORMED AT:[facility] [place] [id number] VALLE MD Pap Vial Vaginal structure / Unknown 02/04/2024 02/04/2024 Narrative [facility] - 02/07/2024 10:36 AM EDT SEE SCANNED RESULTS IN EMR us Betsy Waldrop MD LAB PATHOLOGY ORDERABLES Marizol benitez Result [facility] [address] [place] [phone] [phone] * HPV mRNA E6/E7 w/Reflex to HPV Genotypes 16, 18/45 (02/04/2024 12:00 AM EDT) HPV nRNA E6/E7 NOT DETECTED [facility] Comment:Methodology: Transcr iption-Mediated AmplificationThis assay detects E6/E7 viral messenger RNA (mRNA) from 14high-risk HPV types(16,18,31,33,35,39,45,51,52,56,58,59,66,68).Cervical sources are required for HPV testing.If a vaginal source from a patient who has had atotal hysterectomy with removal of cervix wassubmitted, please contact the testing laboratoryfor alternative testing options.For additional information, please refer tohttp://education.SimplyCast/faq/LXH072d1(This link if provided for information/educational purposes only.)THIS TEST PERFORMED AT:[facility] [place] [phone] DIRECTOR: PERLA VALLE MD HPV mRNA E6/E7 [facility] HPV 16 RNA [facility] HPV 18/45 RNA [facility] Vaginal Fluid Cervix uteri structure / Unknown 02/04/2024 02/04/2024 Narrative [facility] - 02/07/2024 10:36 AM EDT SEE SCANNED RESULTS IN EMRCollection Date: [id number] by: FIDE Carr: Cervix us Betsy Waldrop MD LAB CYTOLOGY ORDERABLES Final Result [facility] [address] [place] [phone] [phone] from Last 3 Months or Most Recently Relevant to Health Maintenance [place] [address] [address] C3 Care Teams [place] Auditor Relationship Specialty Start Date End Date Betsy Waldrop MD [address] [place] [phone] PCP - General Family Medicine 08/30/22 Nalini A 05/07/25
--- OUTSIDE RECORDS SUMMARY | 2025-06-09 17:54 | XMS_ITS | Encounter Summary ---
Author Organization [facility]ated [facility] Address [address] [place] [address] Care Team Providers Care Nut Sorter Operator Name Role Phone Max Arizmendi Primary Care Provider Tammy Naylor LPCA Unavailable [phone] Anusha Molina LOOSE HAND PACKER Unavailable [phone] Rachele Ornelas FISH CLEANER Unavailable Encounter Details Date Type Department Care Team (Late st Contact Info) Description 03/24/2020 [facility] [address] [place] [phone] Dolly Enamorado MD [address] [facility] [address] [place] [address] Hypothyroidism (acquired) (Primary Dx) Social History Tobacco [...] Performing Organization Information: Site ID: [id number] Name: [facility] Address: [address] [place] [address], [place] [address] Director: Deanne Mcdonough MD us Dolly Enamorado MD LAB BLOOD ORDERABLES Final R esult [facility] [address] [place] [address], [place] [address] * T4, Free (04/15/2020 2:52 PM EDT) T4, Free 1.3 0.8 - 1.8 ng/dL [facility] Blood specimen (specimen) Heel structure / Unknown 04/15/2020 2:52 PM EDT 04/15/2020 2:52 PM EDT Narrative [facility] - 04/16/2020 3:40 AM EDT FASTING:NO FASTING: NO Resulting Agency Comment Performing Organization Information: Site ID: [id number] Name: [facility] Address: [address] [place] [address], [facility] [place] [address] Director: Deanne Mcdonough MD Dolly Enamorado MD LAB BLOOD ORDERABLES Final R esult [facility] [address], [place] [address] documented in this encounter Visit Diagnoses Diagnosis Hypothyroidism (acquired)- Primary Unspecified hypothyroidism documented in this encounter Care Teams Nut Sorter Operator Relationship Specialty Start Date End Date Max Arizmendi [address] [place] [address] PCP - General 09/01/19 Tammy Naylor LPCA [address] [place] [address] Clinician Social Work 05/03/20 02/21/22 Anusha Molina APRN [address] [place] [address] Primary BH Attending Psychiatry, General 05/06/2002/22 Backer Rachele Lawrence LCSW [address] [place] [address] Lithographers Printer Clinical Social Work 05/24/20 02/21/22 documented as of this encounter
--- OUTSIDE RECORDS SUMMARY | 2025-06-09 17:54 | XMS_ITS | Encounter Summary ---
Author Organization [facility] Address [address] [place] [address] Care Team Providers Care Supervisor Contact Lens Name Role Phone Max Arizmendi Primary Care Provider Tammy Naylor LPCA Unavailable [phone] Anusha Molina SERVICE ADMINISTRATOR Unavailable [phone] Rachele Ornelas GRINDING WHEEL FACER Unavailable Encounter Details Date Type Department Care Team (Late st Contact Info) Description 11/21/2020 Scanned Document [facility] [address] [place] [phone] Rachele Cheung MD [address] [place] [address] Social History Tobacco Use Types Packs/Day [...] on filedocumented in this encounter Care Teams Supervisor Contact Lens Relationship Specialty Start Date End Date Ugo Destinycheng [address] [place] [address] PCP - General 09/01/19 Tammy Naylor LPCA [address] [place] [address] Clinician Social Work 05/03/20 02/21/22 Anusha Molina APRN [address] [place] [address] Primary BH Attending Psychiatry, General 05/06/2002/22 Rachele Ornelas LCSW [address] [place] [address] Pusher Runner Clinical Social Work 05/24/20 02/21/22 documented as of this encounter
--- OUTSIDE RECORDS SUMMARY | 2025-06-09 17:54 | XMS_ITS | Encounter Summary ---
Author Organization [facility] Address [address] [place] [address] Care Team Providers Care Group Art Supervisor Name Role Phone Max Arizmendi Primary Care Provider Tammy Naylor LPCA Unavailable Anusha Molina RAW PRODUCTS DIRECTOR Unavailable Rachele Ornelas SAP BASIS ADMINISTRATOR Unavailable Encounter Details Date Type Department Care Team (Late st Contact Info) Description 10/27/[address] [facility] [address] [place] [address] Ashley Piña MD [facility] [address] [facility] [address] [place] [address] Social History Tobacco Use Types Packs/Day Years [...] Bassem Piña MD PGY-3 [facility] (p) 10/27/20 12:01 PM Chief Complaint: I'm [...] oz) M CS-LTranv LANI Comments: preeclampsia Past BUSINESS SERVICES ASSISTANT History: Denies history of abnormal pap smear Denies history of STIs Past Medical History: Past Medical History: Diagnosis Date ??? Anxiety ??? Depressed ??? Disease of thyroid gland Past Surgical History: Past Surgical History: Procedure Laterality Date ??? SECTION ??? CHOLECYSTECTOMY ??? ME NJX DX/THER SBST INTRLMNR LMBR/SAC W/IMG GDN Right 03/22/2018 Procedure: IR Epidural Inject Steroid Lumbar/Sacral w/img; Surgeon: Rakesh Garvey MD; Location: [facility]; Service: Interventional Radiology Social History: [...] tablet 3 ??? Blood Glucose Monitoring Suppl (Idibon) w/Device Kit USE TO TEST BLOOD GLUCOSE [...] by mouth daily. 14 packet 1 ??? Kus-RfIqck-NP-DHA ( MULTIVITAMIN PER STATE FORMULARY) tablet Take 1 tablet by mouth daily as directed. Dispense Brand per State Formulary. 30 tablet 11 ??? SUPPLY [facility] cradle. Length of need 6 months. [...] on filedocumented in this encounter Care Teams Group Art Supervisor Relationship Specialty Start Date End Date Max Arizmendi [address] [place] [address] PCP - General 09/01/19 Tammy Naylor LPCA [address] [place] [address] Clinician Social Work 05/03/20 02/21/22 Anusha Molina APRN [address] [place] [address] Primary BH Attending Psychiatry, General 05/06/2002/22 Backer Rachele Lawrence LCSW [address] [place] [address] Candy Decorator Clinical Social Work 05/24/20 02/21/22 documented as of this encounter
--- OUTSIDE RECORDS SUMMARY | 2025-06-09 17:54 | XMS_ITS | Encounter Summary ---
Author Organization [facility] Address [address] [place] [address] Care Team Providers Care Loading Rack Supervisor Name Role Phone Max Arizmendi Primary Care Provider Tammy Naylor LPCA Unavailable [phone] Anusha Molina SERVICING MANAGER Unavailable [phone] Rachele Ornelas TIE WORKER Unavailable [phone] Encounter Details Date Type Department Care Team (Late st Contact Info) Description 09/29/2020 Prep for Surgery [facility] [address] [place] [phone] Lori Lau MD [address] [place] [address] Diet controlled gestational diabetes mellitus (GDM) in [...] Primary documented in this encounter Care Teams Loading Rack Supervisor Relationship Specialty Start Date End Date Max Arizmendi [address] [place] [address] PCP - General 09/01/19 Tammy Naylor LPCA [address] [place] [address] Clinician Social Work 05/03/20 02/21/22 Anusha Molina APRN [address] [place] [address] Primary Attending Psychiatry, General 05/06/2002/22 Rachele Ornelas LCSW [address] [place] [address] Unemployment Claims Adjudicator Clinical Social Work 05/24/20 02/21/22 documented as of this encounter
--- OUTSIDE RECORDS SUMMARY | 2025-06-09 17:54 | XMS_ITS | Encounter Summary ---
Author Organization [employer] Address [address] [facility] 7[address] [place] [address] Care Team Providers Care Glass Carrier Name Role Phone Betsy Waldrop MD Primary Care Provider [phone] Encounter Details Date Type Department Care Team (Late st Contact Info) Description 11/19/2024 Orders Only [facility] CHC MED & PEDS [address] [place], [place] [phone] Velia Hudson MD [address] [place] [address] Anemia, unspecified type (Primary Dx) Social History [...] Description 10/01/2025 2:00 PM EDT Office Visit [facility] OPTOMETRY [address] [place] [address] TarkaRachele, OD [address] [place] [address] Pending Results Name Type Priority Associated Diagnoses [...] EDT) Zinc 65 60 - 130 mcg/dL [facility] Comment:This test was develo ped and its analytical performancecharacteristics have been determined by [employer] [place], [place]. It hasnot been cleared or approved by the U.S. Food and DrugAdministration. This assay has been validated pursuantto the CLIA regulations and is used for clinicalpurposes.THIS TEST WAS PERFORMED AT:[employer] [place] [address]FVMXCXY W. MASON,MD,PHD 04/27/2025 3:0 2 PM EDT 04/27/2025 3:17 PM EDT us Generic External Data Provider LAB BLOOD ORDERAB LES Final Result [facility] [address] [place] [phone] * Vitamin B12 (04/27/2025 3:02 PM EDT) Vitamin B12 466 200 - 900 pg/mL [facility] Comment:NORMAL 200-900 PG/ML INDETERMINATE 160-199 PG/ML DEFICIENT < 160 PG/ML 04/27/2025 3:02 PM EDT 04/27/2025 3:17 PM EDT Generic External Data Provider LAB BLOOD ORDERAB LES Final Result Performing Organization Address [facility] de Phone Number [facility] [address] [place] [phone] * Type and screen (04/27/2025 3:02 PM EDT) Blood Type BP [facility] Antibody Screen NEGATIVE [facility] 04/27/2025 3:02 PM EDT 04/27/2025 3:29 PM EDT Narrative [facility] - 04/27/2025 4:12 PM EDT Spec expiration changed by NISHANT on 04/27/25Reason: PAT SSSWITNESSED BY AGUSTIN.NURSING:Call Blood Bank (ext. [phone]) to band patient on admission.Type and Screen in effect until 2300 on 05/06/25 Generic External Data Provider LAB BLOOD BANK TE ST ORDERABLES Final Result Performing Organization Address [facility] Phone Number [facility] [address] [place] [address] [phone] * Hemoglobin A1c (04/27/2025 3:02 PM EDT) Hemoglobin A1c 4.8 <6.0 % [facility] Comment:Hemoglobin A1C Refer ence Range [...] asaverage glucose, using the formula of the Q8B-EuazyrgFfpktau Glucose study (ADAG), Diabetes Care, Vol.31,#8,2007 04/27/2025 3:02 PM EDT 04/27/2025 3:17 PM EDT us Generic External Data Provider LAB BLOOD ORDERAB LES Final Result [facility] [address] [place] [address] [phone] * (ABNORMAL) CBC auto differential (04/27/2025 [...] ORDERAB LES Final Result Performing Organization Address City/[facility]/ZIP Co de Phone Number [facility] [address] [place] [address] [phone] * (ABNORMAL) Reticulocyte Count (11/24/2024 11:23 AM EDT) Reticulocytes Absolute 0.055 0.026 - 0.095 X10*6/uL [facility] Immature Retic Fraction 19.5(H) 3.0 - 15.9 % [facility] Retic HGB Equivalent 21.1(L) 30.0 - 35.0 pg [facility] Reticulocyte Percent 1.2 0.5 - 1.8 % [facility] Blood Venous blood specimen / Unknown 11/24/2024 11:23 AM EDT 11/24/2024 2:17 PM EDT us Velia Hudson MD LAB BLOOD ORDERABLES Final Result Performing Organization Address City/[facility]/ZIP Co de Phone Number [facility] [address] [place] [phone] documented in this encounter Visit Diagnoses Diagnosis Anemia, unspecified type- Primary documented in this encounter Additional Health Concerns Assessment Noted Time PHQ-9 Depression Total Score: 13 024 8:42 AM EDT documented as of this encounter Care Teams Glass Carrier Relationship Specialty Start Date End Date Betsy Waldrop MD [address] [place] [address] PCP - General Family Medicine 08/30/22 [facility] 05/07/25 documented as of this encounter
--- OUTSIDE RECORDS SUMMARY | 2025-06-09 17:55 | XMS_ITS | Clinical Summary ---
Author Organization [facility] Address [address] [place] [address] Care Team Providers Care Shrinker Name Role Phone Unavailable Primary Care Provider [...]
--- OUTSIDE RECORDS SUMMARY | 2025-06-09 17:55 | XMS_ITS | Encounter Summary ---
Author Organization [employer] Address [address] [facility] [address] [place] [address] Care Team Providers Care Natural Fabricator Name Role Phone Betsy Waldrop MD Primary Care Provider [phone] Encounter Details Date Type Department Care Team (Late st Contact Info) Description 09/26/2023 Telephone [facility] MEDICINE [address] [place] [address] Betsy Waldrop MD [address] [place] [address] Social History Tobacco Use Types Packs/Day Years [...] one being able to take her to [facility]. * Telephone Encounter - Lorena Katz - 09/26/2023 10:32 AM EDT Tc from pt requesting to switch appt for today 09/25 at 2:45 to tele due to son with asthma. documented in this encounter Plan of Treatment Upcoming Encounters Date Type Department Care Team (Late st Contact Info) Description 10/01/2025 2:00 PM EDT Office Visit [facility] OPTOMETRY [address] [place], [place] [phone] Rachele Arora, ROBERTO [address] [place] [address] documented as of this encounter Visit Diagnoses Not on filedocumented in this encounter Additional Health Concerns Assessment Noted Time PHQ-9 Depression Total Score: 12 023 1:23 PM EDT documented as of this encounter Care Teams Natural Fabricator Relationship Specialty Start Date End Date Betsy Waldrop MD [address] [place] [address] PCP - General Family Medicine 08/30/22 Nalini REILLY 05/07/25 documented as of this encounter
--- OUTSIDE RECORDS SUMMARY | 2025-06-09 17:55 | XMS_ITS | Encounter Summary ---
Author Organization [employer] Address [address] [facility] 7t [place] [address] Care Team Providers Care Rn Field Name Role Phone Betsy Waldorp MD Primary Care Provider [phone] Reason for Visit * Reason Onset Date Comments Reschedule 12/17/2023 chart prep 12/17/2023 Encounter Details Date Type Department Care Team ([facility] st Contact Info) Description 12/17/2023 Telephone [facility] CHC MED & PEDS [address] [place] [address] Betsy Waldrop MD [address] [place] [address] Reschedule; chart prep Social History Tobacco Use [...] 12/16 PAP appointment. Please contact pt at [phone] documented in this encounter Plan of Treatment Upcoming Encounters Date Type Department Care Team (Late st Contact Info) Description 10/01/2025 2:00 PM EDT Office Visit [facility] OPTOMETRY [address] [place], [place] [phone] Rachele Arora, OD [address] [place], [place] [phone] documented as of this encounter Visit Diagnoses Not on filedocumented in this encounter Additional Health Concerns Assessment Noted Time PHQ-9 Depression Total Score: 13 024 8:42 AM EDT documented as of this encounter Care Teams Rn Field Relationship Specialty Start Date End Date Betsy Waldrop MD [address] [place] [address] PCP - General Family Medicine [facility] documented as of this encounter
--- OUTSIDE RECORDS SUMMARY | 2025-06-09 17:55 | XMS_ITS | Encounter Summary ---
Author Organization [employer] Address [address] [facility] [address] 7[address] [place] [address] Care Team Providers Care Photographs Curator Name Role Phone Betsy Waldrop MD Primary Care Provider [phone] Reason for Visit * Reason Onset Date Comments Nurse Triage 04/23/2024 Encounter Details Date Type Department Care Team (Late st Contact Info) Description 04/23/2024 Telephone [facility] CHC MED & PEDS [address] [place], [place] [phone] Betsy Waldrop MD [address] [place] [address] Nurse Triage Social History Tobacco Use Types [...] the past 12 months, has t he eToro, gas, oil or water company threatened to [...] Office Visit [facility] OPTOMETRY [address] [place] [address] Rachele Arora, OD [address] [place] [address] documented as of this encounter Visit Diagnoses Not on filedocumented in this encounter Additional Health Concerns Assessment Noted Time PHQ-9 Depression Total Score: 13 024 8:42 AM EDT documented as of this encounter Care Teams Photographs Curator Relationship Specialty Start Date End Date Betsy Waldrop MD [address] [place] [address] PCP - General Family Medicine 08/30/22 Nalini REILLY 05/07/25 documented as of this encounter
== END 2025-06-09 15:36 | disposition home or self-care (01) ==
LOC: HO.HBS 14:57
PROVIDERS: Visit Provider Physician Assistant Surgical
DX: Z71.3 Dietary counseling and surveillance (principal); Z98.84 Bariatric surgery status; Z98.890 Other specified postprocedural states
CPT/HCPCS: 99024

== ENCOUNTER → 2025-06-09 14:56 | Outpatient (BNVA) | payer MEDICAID, SELFPAY | PROVIDERS: Visit Provider Physician Assistant Surgical | DX: M79.3 Panniculitis, unspecified (principal); Z79.2 Long term (current) use of antibiotics; Z98.84 Bariatric surgery status; Z98.890 Other specified postprocedural states | CPT/HCPCS: 99212 ==

== ENCOUNTER 2025-06-16 13:54 | Outpatient (AMB) | payer MEDICAID, SELFPAY ==
--- NOTE | 2025-06-16 14:20 | MHC.OFFVISWM ---
VS Expanded 06/16/25 14:48 BP 109/72 Blood Pressure Location Lt brachial Blood Pressure Position Sitting Pulse 88 Pulse Source Pulse Oximeter Temp 98.2 F Pulse Oximetry 100 Oxygen Delivery Method Room Air Height 5 ft 1 in Weight 124 lb 3.2 oz BMI 23.5 Body Fat % 23.6 Body Fat Mass 9.4 Fat Free Mass 94.8 Visceral Fat Rating 4.0 Body Water % 54.4 Body Water Mass 67.4 Muscle Mass/Score 90.0 Basal Metabolic Rate/Score 1,266 Intake Visit Reasons: (OV) s/p Panniculectomy 05/06/25 Allergies diphenhydramine (From Benadryl) Adverse Reaction (Mild, Verified 06/09/25 15:04) palpitations/anxiety Medication List - Last Reconciled 06/16/25 by Jessica Otoole CNP biotin (Hair, Skin and Nails (biotin)) 10,000 mcg PO DAILY cephalexin 500 mg PO Q12H iron,carbonyl-vitamin C 65 mg iron- 125 mg (Vitron-C) 1 tab PO DAILY levothyroxine 100 mcg PO DAILY multivitamin (Daily Multi-Vitamin tablet) 1 tab PO DAILY HPI Comments Details: 45 year old woman s/p panniculectomy 05/06/2025 s/p LSG 03/06/2023 Weight today 124.2 lbs, BMI 23.5. Her initial weight was 212.4 lbs when starting the program 10/31/2022. She has lost a total of 92.2 lbs since starting the WMP. At last visit, incision was healing well and drain was removed. Denies any incisional issues. Only mild soreness to touch along incision, umbilicus. Still has some ABX left. Takes daily MVI. Compliant with meal plan. Current meal plan: coffee, tea, water 1 scoop Premier protein shake Still eating pure protein bars, but does not like them because they are too sweet. Prefers Estonian yogurt or egg dinner: chicken, cucumbers, sullivan (rarely) Pt reports excess skin of the upper arms. She is experiencing chafing when skin rubs against the torso. Sometimes feels pinching. She has to wear loose sleeves at all times to accommodate the excess. The weight of the excess skin causes additional discomfort in her shoulders and it is difficult to lift her arms over her head due to discomfort from the weight. She has noticed rashes and odor. She also reports excess skin of the thighs. She is experiencing chafing when the thighs rub against one another when walking. She must wear tight clothing, such as leggings, to compress the thighs and prevent chafing. The weight of the excess skin feels heavy, and causes early fatigue when walking. She has noticed rashes and odor. Has tried antifungal cream with no improvement. [facility] Medical History Postgastrectomy malabsorption Depression Bipolar disorder Iron deficiency anemia PONV (postoperative nausea and vomiting) Migraines Arthritis Lico's disease Anxiety Sciatica History of herniated intervertebral disc Hyperlipidemia DJD (degenerative joint disease) GERD (gastroesophageal reflux disease) Surgical History History of sleeve gastrectomy H/O Spinal surgery Hx of section Hx of cholecystectomy Family History Mother Diabetes Hypertension Father No problems noted. Son No problems noted. Son No problems noted. Daughter No problems noted. Social History Household Members: Family Housing: Apartment Are you a primary pediatric critical care nurse to a significant other at home: No Do you presently have visiting nurse or other home services: No Alcohol intake: never Patient Tobacco Use Status: Former Tobacco user Tobacco use type: Cigarette Cigarettes Per Day: 4 Years Smoked: 30 e-Cigarette/Vaping Use: Currently Using service: No Physical Exam GI Other: Abdomen Soft flat nontender nondistended. Panniculectomy incision healing well. Small area of raw/irritation just below the umbilicus. Umbilicus is healing well. No signs and symptoms of infection. Drain site scabbed over Assessment & Plan Assessment & Plan (1) S/P panniculectomy: Code(s): Z98.890 - Other specified postprocedural states Category: Surgical Plan: Plan: - Continue high protein diet. She may choose to swap protein bars for Oikos protein yogurt that are 15G protein - Recommend compressive garment until 3 months post op. She may switch to another compressive waist wrap if she prefers over the post op abdominal binder. - Recommend gauze over the irritated skin and umbilicus to prevent rubbing/friction from abd binder. - shower daily, soap and water, may gently clean umbilicus with cotton swab. May place half cotton ball in umbilicus to help retain shape. change out daily and prn - She is 6 weeks post op, and can now increase her exercise including cardio (elliptical, stationary bike, treadmill) and can slowly increase her lifting. Still no abdominal exercises until 3 months post op - She will try the clotrimazole cream for her arm rashes as well. If these rashes continue, we will further discuss brachioplasty and thigh plasty. Follow up: 6-8 weeks (2) S/P laparoscopic sleeve gastrectomy: Code(s): Z98.84 - Bariatric surgery status Category: Surgical Plan: .
[2025-06-16 14:48] VITALS: BP 109/72; PULSE 88; TEMP 36.8; O2SAT 100; BMI 23.5
--- OUTSIDE RECORDS SUMMARY | 2025-06-16 21:38 | XMS_ITS | Encounter Summary ---
Author Organization [facility] Address [address] [place] [address] Care Team Providers Care Block Operator Name Role Phone Max Arizmendi Primary Care Provider Tammy Naylor LPCA Unavailable Anusha Molina TRAINING DESIGNER Unavailable Rachele Ornelas PRODUCTION CORRUGATOR Unavailable Encounter Details Date Type Department Care Team (Late st Contact Info) Description 11/21/2020 Scanned Document [facility] Services [address] [place] [phone] Rachele Cheung MD [address] [place] [address] Social History Tobacco Use Types Packs/Day Years [...] on filedocumented in this encounter Care Teams Block Operator Relationship Specialty Start Date End Date Ugo Destinycheng [address] [place] [address] PCP - General 09/01/19 Tammy Naylor LPCA [address] [place] [address] Clinician Social Work 05/03/20 02/21/22 Anusha Molina APRN [address] [place] [address] Primary BH Attending Psychiatry, General 05/06/2002/22 Rachele Ornelas LCSW [address] [place] [address] Assistant Store Director Clinical Social Work 05/24/20 02/21/22 documented as of this encounter
--- OUTSIDE RECORDS SUMMARY | 2025-06-16 21:38 | XMS_ITS | Clinical Summary ---
Author Organization [facility] Address [address] [place] [address] Care Team Providers Care Negative Turner Apprentice Name Role Phone Unavailable Primary Care Provider [...] on file Sexual Orientation Not on file Plan of Treatment Health Maintenance Due Date [...]
--- OUTSIDE RECORDS SUMMARY | 2025-06-16 21:38 | XMS_ITS | Encounter Summary ---
Author Organization [facility] Address [address] [place] [address] Care Team Providers Care Clean In Places Operator Name Role Phone Max Arizmendi Primary Care Provider Tammy Naylor LPCA Unavailable [phone] Anusha Molina BOOKS BINDER Unavailable [phone] Rachele Ornelas FIREBREAK CUTTER Unavailable Encounter Details Date Type Department Care Team (Late st Contact Info) Description 10/27/2020 Prep for Surgery [facility] Ambulatory Health Services [address] [place] [address] Ashley Piña MD [facility] W[facility]ens Care [facility] [address] [facility] [address] [place] [address] Social History Tobacco Use Types Packs/Day Years [...] A/P d/w Dr. Bassem Piña MD PGY-3 [facility] REEFER TRUCK DRIVER (p) 10/27/20 12:01 PM Chief Complaint: I'm [...] oz) M CS-LTranv LANI Comments: preeclampsia Past DROP HAMMER SET UP OPERATOR History: Denies history of abnormal pap smear [...] Lumbar/Sacral w/img; Surgeon: Rakesh Garvey MD; Location: [facility]; Service: Interventional Radiology Social History: Denies tobacco [...] tablet 3 ??? Blood Glucose Monitoring Suppl (Humedica) w/Device Kit USE TO TEST BLOOD GLUCOSE [...] by mouth daily. 14 packet 1 ??? Ayp-FpGuvt-ZS-DHA ( MULTIVITAMIN PER STATE FORMULARY) tablet Take 1 tablet by mouth daily as directed. Dispense Brand per State Formulary. 30 tablet 11 ??? SUPPLY [facility] cradle. Length of need 6 months. [...] on filedocumented in this encounter Care Teams Clean In Places Operator Relationship Specialty Start Date End Date Max Arizmendi [address] [place] [address] PCP - General 09/01/19 Tammy Naylor LPCA [address] [place] [address] Clinician Social Work 05/03/20 02/21/22 Anusha Molina APRN [address] [place] [address] Primary BH Attending Psychiatry, General 05/06/2002/22 Backer Rachele Lawrence LCSW [address] [place] [address] Glass Vial Bending Conveyor Feeder Clinical Social Work 05/24/20 02/21/22 documented as of this encounter
--- OUTSIDE RECORDS SUMMARY | 2025-06-16 21:38 | XMS_ITS | Encounter Summary ---
Author Organization [employer] Address [address] [facility] 7t [place] [address] Care Team Providers Care Space And Missile Operations Name Role Phone Betsy Waldrop MD Primary Care Provider [phone] Reason for Visit * Reason Comments Med Refill Encounter Details Date Type Department Care Team ([facility] st Contact Info) Description 06/13/2025 Refill [facility] CHC MED & PEDS [address] [place], [place] [phone] India Parsons CNP [address] [place] [address] Sinus congestion Social History Tobacco Use Types Packs/Day Years [...] Description 10/01/2025 2:00 PM EDT Office Visit [facility] OPTOMETRY [address] [place] [address] Tarka Rachele, OD [address] [place] [address] documented as of this encounter Visit Diagnoses Diagnosis Sinus congestion Other diseases of nasal cavity and sinuses documented in this encounter Additional Health Concerns Assessment Noted Time PHQ-9 Depression Total Score: 2 03/09/20 25 11:01 AM EDT documented as of this encounter Care Teams Space And Missile Operations Relationship Specialty Start Date End Date Betsy Waldrop MD [address] [place] [address] PCP - General Family Medicine [facility] documented as of this encounter
--- OUTSIDE RECORDS SUMMARY | 2025-06-16 21:38 | XMS_ITS | Encounter Summary ---
Author Organization [employer] Address [address] [facility] 7[address] [place] [address] Care Team Providers Care Apartment Maintenance Technician Name Role Phone Betsy Waldrop MD Primary Care Provider [phone] Reason for Visit * Reason Onset Date Comments FYI 05/06/2025 Encounter Details Date Type Department Care Team (Late st Contact Info) Description 05/06/2025 Telephone [facility] MEDICINE [address] [place] [address] Betsy Waldrop MD [address] [place] [address] FYI Social History Tobacco Use Types Packs/Day [...] Aura Scott - 05/25/2025 1:03 PM EST .[facility] * Telephone Encounter - Jackson Irving - 05/06/2025 10:57 AM EDT Tc from Doreen REILLY stating [place] [facility], they donot expect pcp to sign orders since they will most likely be signed by the surgeon. They just wanted pcp to be aware that they will be involved. documented in this encounter Plan of Treatment Upcoming Encounters Date Type Department Care Team (Late st Contact Info) Description 10/01/2025 2:00 PM EDT Office Visit [facility] OPTOMETRY [address] [place], [place] [phone] Rachele Arora, ROBERTO [address] [place] [address] documented as of this encounter Visit Diagnoses Not on filedocumented in this encounter Additional Health Concerns Assessment Noted Time PHQ-9 Depression Total Score: 2 03/09/20 25 11:01 AM EDT documented as of this encounter Care Teams Apartment Maintenance Technician Relationship Specialty Start Date End Date Betsy Waldrop MD [address] [place] [address] GABRIEL Gayle [address] PCP - General Family Medicine 08/30/22 Nalini REILLY 05/07/25 documented as of this encounter
--- OUTSIDE RECORDS SUMMARY | 2025-06-16 21:38 | XMS_ITS | Encounter Summary ---
Author Organization [facility] Address [address] [place] [address] Care Team Providers Care Php Mysql Developer Name Role Phone Max Arizmendi Primary Care Provider Tammy Naylor LPCA Unavailable Anusha Molina CANVAS GOODS MAKER Unavailable Rachele Ornelas MEDICAL RECORD ASSISTANT Unavailable [phone] Encounter Details Date Type Department Care Team (Late st Contact Info) Description 11/25/2020 Scanned Document [facility] [address] [place] [address] [phone] Josie Bingham MD [address] [place] [address] Social History Tobacco Use Types Packs/Day Years [...] on filedocumented in this encounter Care Teams Php Mysql Developer Relationship Specialty Start Date End Date Ugo Destinycheng [address] [place] [address] PCP - General 09/01/19 Tammy Naylor LPCA [address] [place] [address] Clinician Social Work 05/03/20 02/21/22 Anusha Molina APRN [address] [place] [address] Primary BH Attending Psychiatry, General 05/06/2002/22 Rachele Ornelas LCSW [address] [place] [address] Macaroni Maker Clinical Social Work 05/24/20 02/21/22 documented as of this encounter
--- OUTSIDE RECORDS SUMMARY | 2025-06-16 21:38 | XMS_ITS | Encounter Summary ---
Author Organization [employer] Address [address] [place] [address] Care Team Providers Care Railroad Dining Car Stewardess Name Role Phone Betsy Waldrop MD Primary Care Provider [phone] Reason for Visit * Reason Onset Date Comments Nurse Triage 04/23/2024 Encounter Details Date Type Department Care Team (Late st Contact Info) Description 04/23/2024 Telephone [facility] MED & PEDS [address] [place], [place] [phone] Betsy Waldrop MD [address] [place] [address] Nurse Triage Social History Tobacco Use Types [...] the past 12 months, has t he [employer], gas, oil or water company threatened to [...] Description 10/01/2025 2:00 PM EDT Office Visit [facility] OPTOMETRY [address] [place] [address] Rachele Arora, OD [address] [place] [address] documented as of this encounter Visit Diagnoses Not on filedocumented in this encounter Additional Health Concerns Assessment Noted Time PHQ-9 Depression Total Score: 13 024 8:42 AM EDT documented as of this encounter Care Teams Railroad Dining Car Stewardess Relationship Specialty Start Date End Date Betsy Waldrop MD [address] [place] [phone] PCP - General Family Medicine 08/30/22 Nalini REILLY 05/07/25 documented as of this encounter
--- OUTSIDE RECORDS SUMMARY | 2025-06-16 21:38 | XMS_ITS | Clinical Summary ---
Author Organization [employer] Address [address] 7[address] [place] [address] Care Team Providers Care Wood Cabinetmaker Name Role Phone Betsy Waldrop MD Primary Care Provider [phone] Allergies Active Allergy Reactions Criticality Noted Date [...] 1 025 Active ibuprofen 600 MG tablet Active Ventolin HFA 108 (90 Base) MCG/ACT inhalerIndication s:Wheezing INHALE 2 PUFFS EVERY 4 HOURS NEEDED FOR WHEEZING 18 g 025 Active fluticasone (Flonase) 50 MCG/ACT nasal sprayIndications: Sinus congestion SPRAY 2 SPRAYS INTO EACH NOSTRIL ONCE A DAY 48 g 025 Active fluticasone (Flonase) 50 MCG/ACT nasal sprayIndications: Sinus congestion Administer 2 sprays into each nostril Once per day. Shake gently. Before first use, prime pump. After use, clean tip and replace cap. 16 g 2 025 2024 Discontinued Active Problems [...] send to pain management Bipolar II disorder ([facility]) 05/13/2020 Overview (12/09/2023): [...] intervention , Patient to reach out to [facility] team as needed, Patient to [...] Center 10/10/2023 3:15 PM Betsy Waldrop MD [facility] Insomnia due to other mental disorder [...] Severe anxiety 09/10/2019 Smoker 09/10/2019 Morbid obesity ([facility]/HCC) 09/10/2019 Assessment & Plan (10/04/2022 5:01 PM EDT): Discussed calorie deficit, recommended reduction of 20-30% of maintenance calories; helicopter dispatcher referral offered. Recommended to decrease soda and [...] will refill her levothyroxine. She will need N referral to psychpharm Will need mammography order [...] (08/30/2022): Added automatically from request for surgery [id number] Last Assessment & Plan: Continue diet control. Patient did not bring meter or log today. Seen by nutrition Gestational thrombocytopenia 09/01/2020 10/04/2022 Overview (10/03/2022): Plts 144 on 09/01/20 Needs repeat CBC next visit (10/06/20) Last Assessment & Plan: Plt 158 at last visit 10/27/20 Encounters Date Type Department Care Team Description 06/13/2025 Refill [facility] MED & PEDS [address] [place] [address] India Parsons CNP Sinus congestion 05/25/2025 Telephone [facility] MEDICINE [address] [place], [place] [phone] Betsy Waldrop MD insurance referral 05/06/2025 Telephone [facility] MEDICINE [address] [place], [place] [phone] Betsy Waldrop MD FYI 05/06/2025 Orders Only GENERIC EXTERNAL DATA DEPARTMENT Provider, Generic External Data 05/03/2025 Orders Only [facility]EDS [address] [place] [address] India Parsons CNP Lumbar back pain with radiculopathy affecting lower extremity (Primary Dx); Polyarthralgia 04/27/2025 Refill [facility] MED [facility] PEDS [address] [place] [address] India Parsons CNP Wheezing from Last 3 [...] [facility] OPTOMETRY [address] [place] [address] Rachele Arora, OD [address] [place] [address] Health Maintenance Due Date Last Done Comments [...] 04/27/2025 3:02 PM EDT Anemia, unspecified type LIPID PANEL, STANDARD Routine 03/12/2025 12:56 PM [...] PM EDT 05/06/2025 2:13 PM EDT Bradley [facility] - 05/10/2025 4:51 PM EST ----- ------- Name: Yani Obrien Age/Sex: 45/F : 1980 Unit#: [id number] Attend Dr: Partha Kelsey MD Re05/06/25 Status: [facility] [place] Location: KIMANI Disch: ----- ------- SPEC : [id number] RECD: 05/06/25-2290 STATUS: MINDY RAI NUM: [id number] ANA: 05/06/25-[address]: Partha Kelsey MD ENTERED: 05/06/25-1418 SP TYPE: Surgical OTHR DR: India Parsons CANE BURNER ORDERED: Gross Micro L3 Diagnosis Soft tissue, [...] of skin. Sectioning shows no gross abnormalities. Plastic Frame Inserter sections, including skin are submitted in cassettes A1. (RJD) IHC S/NG Disclaimer NOTE: Unless otherwise stated, all tissue is formalin-fixed and paraffin-embedded. Some or all of the immunohistochemical tests reported herein may have been developed and their performance characteristics determined by [facility]. They have not been cleared or approved by the U.S. Food and Drug Administration (FDA). However, the FDA has determined that such clearance or approval is not necessary. This laboratory is certified under the Clinical Laboratory Improvement Amendments of 1988 (CLIA) as qualified to perform high complexity clinical laboratory testing. Copies To: Partha Kelsey MD [facility] Weight Management Program [address] [place] [id number] CONTINUED ON NEXT PAGE ----- ------- Name: Yani Obrien Age/Sex: 45/F : 1980 Unit#: [id number] Attend Dr: Partha Kelsey MD Re05/06/25 Status: [facility] Location: [place] Disch: ----- ------- SPEC : [id number] RECD: 05/06/25 STATUS: MINDY RAI NUM: [id number] ANA: 05/06/[address]: Partha Kelsey MD ENTERED: 05/06/25 SP TYPE: Surgical OTHR DR: India Parsons NP ORDERED: Gross Micro L3 Copies To: (Continued) India Parsons NP [address] [address] ----- ------- Signed (signature on file) Ana Anthony MD 05/10/25 3286 ----- ------- END OF REPORT Generic External Data Provider LAB CYTOLOGY ANNA ADAM Final Result [facility] [address] [place] [address] [phone] * HCG, Qualitative, Urine (05/06/2025 8:11 AM EDT) Urine NEGATIVE NEGATIVE [facility] Comment:This test was develo ped to detect early . Falsenegative results may occur after the 5th - 7th week ofpregnancy when using this test method. If clinicallyindicated, consider a serum hCG. 05/06/2025 8:11 AM EDT 05/06/2025 8:21 AM EDT us Generic External Data Provider LAB URINE ORDERAB LES Final Result [facility] [address] [place] [phone] * (ABNORMAL) CBC auto differential (04/27/2025 3:02 PM EDT) White Blood Count 5.0 4.8 - 10.8 X10*3/uL [facility] Red Blood Count 4.36 4.20 - 5.50 X10*6/uL [facility] Hemoglobin 10.5(L) 12.0 - 16.0 g/dl [facility] Hematocrit 34.1(L) 37.0 - 47.0 % [facility] Mean Corpuscular Volume 78.2(L) 80.0 - 98.0 fL [facility] Mean Corpuscular Hemoglobin 24.1(L) 27.0 - 33.0 pg [facility] Mean Corpuscular HGB Conc 30.8(L) 31.0 - 35.0 g/dl [facility] Red Cell Distribution Width 21.0(H) 11.0 - 16.0 % [facility] Platelet Count 184 160 - 400 X10*3/uL [facility] Mean Platelet Volume 10.0 9.4 - 12.3 fL [facility] Neutrophils Percent Auto 56.5 45 - 73 % [facility] Imm Gran Pct Auto 0.4 0.0 - 0.4 % [facility] Lymphocytes Percent Auto 31.1 20 - 40 % [facility] Monocytes Percent Auto 8.4 2 - 11 % [facility] Eosinophils Percent Auto 2.0 0 - 4 % [facility] Basophils Percent Auto 1.6 0 - 2 % [facility] NRBC Pct Auto 0.0 0.0 - 0.2 /100WBC [facility] Neutrophils Absolute Auto 2.8 2.0 - 8.3 x10*3/uL [facility] Imm Gran Abs Auto 0.02 0.00 - 0.03 X10*3/uL [facility] Lymphocytes Absolute Auto 1.6 1.2 - 4.9 X10*3/uL [facility] Monocytes Absolute Auto 0.4 0.1 - 1.2 X10*3/uL [facility] Eosinophils Absolute Auto 0.1 0.0 - 0.4 X10*3/uL [facility] Basophils Absolute Auto 0.1 0.0 - 0.2 X10*3/uL [facility] NRBC Abs Auto 0.000 0.0 - 0.012 X10*3/uL [facility] 04/27/2025 3:02 PM EDT 04/27/2025 3:17 PM EDT us Generic External Data Provider LAB BLOOD ORDERAB LES Final Result [facility] [address] [place] [phone] * Zinc (04/27/2025 3:02 PM EDT) Zinc 65 60 - 130 mcg/dL [facility] Comment:This test was julisa cassidy and its analytical performancecharacteristics have been determined by [employer] [place], [place]. It hasnot been cleared or approved by the U.S. Food and DrugAdministration. This assay has been validated pursuantto the CLIA regulations and is used for clinicalpurposes.THIS TEST WAS PERFORMED AT:[employer] [place] [address]DDEZIOQCOLIN GALVAN MD,PHD 04/27/2025 3:02 PM EDT 04/27/2025 3:17 PM EDT us Generic External Data Provider LAB BLOOD ORDERAB LES Final Result Performing Organization Address [facility]/ZIP Co de Phone Number [facility] [address] [place] [phone] * Type and screen (04/27/2025 3:02 PM EDT) Blood Type BP [facility] Antibody Screen NEGATIVE [facility] 04/27/2025 3:02 PM EDT 04/27/2025 3:29 PM EDT Narrative [facility] - 04/27/2025 4:12 PM EDT Spec expiration changed by NISHANT on 04/27/25Reason: PAT SSSWITNESSED BY AGUSTIN.NURSING:Call Blood Bank (ext. [phone]) to band patient on admission.Type and Screen in effect until 2300 on 05/06/25 us Generic External Data Provider LAB BLOOD BANK TE ST ORDERABLES Final Result Performing Organization Address [facility]/ZIP Co de Phone Number [facility] [address] [place] [phone] * Hemoglobin A1c (04/27/2025 3:02 PM EDT) Hemoglobin A1c 4.8 <6.0 % [facility] Comment:Hemoglobin A1C Refer ence Range Adults: 4.8 - 6.0 % Non diabetic: < 6.0 % Goal: < 7.0 %Additional Action Suggested: > 8.0 %Note: Hemoglobin A1c results are invalid for patients with abnormal amounts of HbF. Blood transfusions may impact the HbA1c concentration in the patient sample. Estimated Average Glucose 91 mg/dL [facility] Comment:eAG = Estimated ave rage glucose which is %A1C expressed asaverage glucose, using the formula of the O4F-XltgxkoHkasvtm Glucose study (ADAG), Diabetes Care, Vol.31,#8,2007 04/27/2025 3:02 PM EDT 04/27/2025 3:17 PM EDT Generic External Data Provider LAB BLOOD ORDERAB LES Final Result Performing Organization Address City/[facility]/ZIP Co de Phone Number [facility] [address] [place] [phone] * Vitamin B12 (04/27/2025 3:02 PM EDT) Vitamin B12 466 200 - 900 pg/mL [facility] Comment:NORMAL 200-900 PG/M L INDETERMINATE 160-199 PG/ML DEFICIENT < 160 PG/ML 04/27/2025 3:02 PM EDT 04/27/2025 3:17 PM EDT Generic External Data Provider LAB BLOOD ORDERAB LES Final Result Performing Organization Address City/[facility] Co de Phone Number [facility] [address] [place] [phone] * Lipid Panel, Standard (03/12/2025 12:56 PM EDT) Triglycerides 32 <150 mg/dL [facility] Comment:Desirable Triglyceri de: less than 150 mg/dLBorderline High Triglyceride 150-199 mg/dLHigh Triglyceride: 200-499 mg/dLVery High Triglyceride: greater than or equal to 5OO mg/dL Cholesterol 156 <200 mg/dL [facility] Comment:Desirable Cholestero l: less than 200 mg/dLBorderline High Cholesterol: 200-239 mg/dLHigh Cholesterol: greater than 239 mg/dL LDL Cholesterol Calculated 87 <100 mg/dL [facility] Comment:Desirable LDL: less than 100 mg/dLNear Optimal/Above Optimal LDL: 110- 129 mg/dLBorderline High LDL: 130-159 mg/dLHigh LDL: 160-189 mg/dLVery High LDL: greater than or equal to 190 mg/dL HDL Cholesterol 63 >40 mg/dL [facility] Comment:Desirable HDL: great er than 40 mg/dL Note: This HDL assay may give artificially low results in patients with liver disease. Blood Venous blood specimen / Unknown 03/12/2025 12:56 PM EDT 03/12/2025 2:21 PM EDT India Parsons CNP LAB BLOOD ORDERABLES Marizol l Result Performing Organization Address [facility] Co de Phone Number [facility] [address] [place] [phone] * Hepatitis C Antibody with Reflex to HCV, RNA, Quantitative, Real-Time PCR (05/26/2024 3:54 PM EST) Hepatitis C Antibody Nonreactive Nonreactive [facility] Comment:Antibodies to HCV no t detected; does not exclude early acuteHCV infection. Blood Venous blood specimen / Unknown 05/26/2024 3:54 PM EST 05/26/2024 3:54 PM EST Betsy Waldrop MD LAB BLOOD ORDERABLES Final Re sult Performing Organization Address [facility] Co de Phone Number [facility] [address] [place] [phone] * HIV-1/2 Antigen and Antibodies, Fourth Generation, with Reflexes (05/26/2024 3:54 PM EST) HIV AB/AG Nonreactive Nonreactive [facility] Comment:HIV-1 p24 Ag and/or HIV-1/HIV-2 Ab not detected.A test result that is nonreactive does not exclude thepossibility of exposure to or infection with HIV-1 and/orHIV-2. Nonreactive results in this assay for individualswith prior exposure to HIV-1 and/or HIV-2 may be due toantigen and antibody levels that are below the limit ofdetection of this assay.The [employer] HIV Ag/Ab Combo assay result andsupplemental assay results should be interpreted inconjunction with the patient's clinical presentation,history and other laboratory results. If the results areinconsistent with clinical evidence, additional testing issuggested to confirm the result. Blood Venous blood specimen / Unknown 05/26/2024 3:54 PM EST 05/26/2024 3:54 PM EST us Betsy Waldrop MD LAB BLOOD ORDERABLES Final Re sult [facility] [address] [place] [phone] * Pap Smear (02/04/2024 12:00 AM EDT) SOURCE: SEE NOTE [facility] Comment:None given Report Status: [facility] Clinical Information: SEE NOTE [facility] Comment:None given LMP: SEE NOTE [facility] Comment:NONE GIVEN Prev. PAP: SEE NOTE [facility] Comment:NONE GIVEN Prev. BX: SEE NOTE [facility] Comment:NONE GIVEN Statement Of Adequacy: SEE NOTE [facility] Comment:Satisfactory for gavin luation.Endocervical/transformation zone componentpresent. General Categorization: [facility] Interpretation/Result: SEE NOTE [facility] Comment:Cytology Results: Ne gative for intraepitheliallesion or malignancy. Cytology Comment SEE NOTE [facility] Comment:This Pap test has be en evaluated with computerassisted technology. Beef Cattle Farmer: SEE NOTE [facility] Comment:YP, CT(ASCP)CT scree jessica location: [address] [address] Review Beef Cattle Farmer: SEE NOTE [facility] Comment:SL, CT(ASCP)CT scree jessica location: [address] [address] Pathologist [facility] PAP Infection [facility] See Note SEE [facility] Comment:EXPLANATORY NOTE:The Pap is a screening test for cervical cancer. It isnot a diagnostic test and is subject to false negativeand false positive results. It is most reliable when asatisfactory sample, regularly obtained, is submittedwith relevant clinical findings and history, and whenthe Pap result is evaluated along with historic andcurrent clinical information.THIS TEST WAS PERFORMED AT:[facility] [place] [phone] VALLE MD Pap Vial Vaginal structure / Unknown 02/04/2024 02/04/2024 Narrative [facility] - 02/07/2024 10:36 AM EDT SEE SCANNED RESULTS IN EMR us Betsy Waldrop MD LAB PATHOLOGY ORDERABLES Marizol benitez Result [facility] [address] [place] [address] [phone] * HPV mRNA E6/E7 w/Reflex to HPV Genotypes 16, 18/45 (02/04/2024 12:00 AM EDT) HPV nRNA E6/E7 NOT DETECTED [facility] Comment:Methodology: Transcr iption-Mediated AmplificationThis assay detects E6/E7 viral messenger RNA (mRNA) from 14high-risk HPV types(16,18,31,33,35,39,45,51,52,56,58,59,66,68).Cervical sources are required for HPV testing.If a vaginal source from a patient who has had atotal hysterectomy with removal of cervix wassubmitted, please contact the testing laboratoryfor alternative testing options.For additional information, please refer [email or web address]/[email or web address](This link if provided for information/educational purposes only.)THIS TEST PERFORMED AT:[facility] [place] [phone] DIRECTOR: PERLA VALLE MD HPV mRNA E6/E7 TNP [facility] HPV 16 RNA [facility] HPV 18/45 RNA [facility] Vaginal Fluid Cervix uteri structure / Unknown 02/04/2024 02/04/2024 Narrative [facility] - 02/07/2024 10:36 AM EDT SEE SCANNED RESULTS IN EMRCollection Date: [id number] by: FIDE Carr: Cervix us Betsy Waldrop MD LAB CYTOLOGY ORDERABLES Final Result Performing Organization Address City/State/[facility] Co de Phone Number [facility] [address] [place] [address] [phone] from Last 3 Months or Most Recently Relevant to Health Maintenance Insurance [address] [place], [place] [address] Care Teams Wood Cabinetmaker Relationship Specialty Start Date End Date Betsy Waldrop MD [address] [place] [phone] PCP - General Family Medicine [facility]
--- OUTSIDE RECORDS SUMMARY | 2025-06-16 21:38 | XMS_ITS | Clinical Summary ---
Author Organization [facility] Address [address] [place] [address] Care Team Providers Care Python Web Developer Name Role Phone Max Arizmendi Primary Care Provider [phone] Allergies Active Allergy Reactions Criticality Noted Date [...] empty stomach. 90 tablet 1 2 Active Iyc-SrEijv-FS-DHA (Vitafol-One) 29-1-200 MG CapIndications:Esha haas is a [...] (09/30/2020): Added automatically from request for surgery [id number] Assessment & Plan (11/03/2020 10:48 AM EDT): [...] was recommended to per her provider at [facility] Assessment & Plan (08/30/2021 4:27 [...] past but not on meds since 2018. professional services consultant referral placed. DF Assessment & Plan (04/27/2020 [...] (03/22/2018): Added automatically from request for surgery [id number] Assessment & Plan (04/27/2020 4:24 PM EDT): Patient reports history of herniated disk and sciatica. Will have anesthesia consult later in . Lumbar radiculopathy 03/19/2018 020 Overview (03/22/2018): Added automatically from request for surgery [id number] Immunizations Immunization Administration Dates Next Due Influenza [...] Influenza Vaccine 2025 05/25/2020, 07/14/2019 COVID-19 Vaccine (1 - 2024-2 6 season) 2025 DTaP/Tdap/Td Vaccines (2 - T [...] to Confirmation (09/29/2020 3:36 PM EDT) Pathologist [facility] HIV 1/2 Ag/Ab CMIA Nonreactive Nonreactive HOSPITAL LAB Comment: Results show no evidence of infection by HIV 1/2. If clinically indicated, repeat CMIA or test by nucleic acid amplification. Performed at [facility], [place], [place] License 0385 CLIA [id number] Blood specimen (specimen) Blood specimen / Unknown 09/29/2020 3:36 PM EDT 09/29/2020 6:22 PM EDT us Audrey Luevano MD LAB BLOOD ORDERABLES Marizol l Result HOSPITAL LAB * Hepatitis C Virus (HCV) Antibody (04/08/2020 11:00 AM EDT) Pathologist [facility] Hepatitis C Antibody 0.15 0.00 - 0.79 S/CO ratio HOSPITAL LAB Hepatitis C Antibody Interpretation Nonreactive Nonreactive HOSPITAL LAB Comment:Performed at [facility], [place], [place] License 0385 CLIA [id number] Blood specimen (specimen) Heel structure / Unknown 04/08/2020 11:00 AM EDT 04/08/2020 12:32 PM EDT us Rachele Cheung MD LAB BLOOD ORDERABLES Final Result HOSPITAL LAB from Last 3 Months or Most Recently Relevant to Health Maintenance Insurance [facility] Advance Directives * [...] 6:42 PM 06/28/2019 5:12 PM Care Teams Python Web Developer Relationship Specialty Start Date End Date Max Arizmendi [address] [place] [address] PCP - General 09/01/19
--- OUTSIDE RECORDS SUMMARY | 2025-06-16 21:38 | XMS_ITS | Encounter Summary ---
Author Organization [employer] Address [address] 7t [place] [address] Care Team Providers Care Link Trainer Mechanic Name Role Phone Betsy Waldrop MD Primary Care Provider [phone] Encounter Details Date Type Department Care Team (Late st Contact Info) Description 09/26/2023 Telephone [facility] MEDICINE [address] [place] [address] Betsy Waldrop MD [address] [place] [address] Social History Tobacco Use Types Packs/Day Years [...] one being able to take her to [facility]. * Telephone Encounter - Lorena Katz - 09/26/2023 10:32 AM EDT Tc from pt requesting to switch appt for today 09/25 at 2:45 to tele due to son with asthma. documented in this encounter Plan of Treatment Upcoming Encounters Date Type Department Care Team (Late st Contact Info) Description 10/01/2025 2:00 PM EDT Office Visit [facility] OPTOMETRY [address] [place], [place] [phone] Rachele Arora, ROBERTO [address] [place] [address] documented as of this encounter Visit Diagnoses Not on filedocumented in this encounter Additional Health Concerns Assessment Noted Time PHQ-9 Depression Total Score: 12 023 1:23 PM EDT documented as of this encounter Care Teams Link Trainer Mechanic Relationship Specialty Start Date End Date Betsy Waldrop MD [address] [place] [address] PCP - General Family Medicine 08/30/22 Nalini REILLY 05/07/25 documented as of this encounter
--- OUTSIDE RECORDS SUMMARY | 2025-06-16 21:38 | XMS_ITS | Clinical Summary ---
Author Organization [facility] Prior to 12/05/24 Address [address] [place] [address] Care Team Providers Care Solutions Analyst Name Role Phone Unavailable Primary Care Provider [...] with Friends and Family Never 09/10/2019 Attends [employer] Never 09/09 Active Member of Clubs [...] this topic Obrien,Daisy Personal/Family Self 1980 [address] [address] Obrien,Daisy Behavioral Health Self 1980 [address] [facility] [address] [address]
--- OUTSIDE RECORDS SUMMARY | 2025-06-16 21:38 | XMS_ITS | Encounter Summary ---
Author Organization [facility] Address [address] [place] [address] Care Team Providers Care Obstetrics Gynecology Physician Name Role Phone Max Arizmendi Primary Care Provider Tammy Naylor LPCA Unavailable Anusha Molina PROFESSOR OF ENVIRONMENTAL ENGINEERING Unavailable Rachele Ornelas BARREL DEDENTING MACHINE OPERATOR Unavailable [phone] Encounter Details Date Type Department Care Team (Late st Contact Info) Description 09/29/2020 Prep for Surgery [facility] [address] [place] [address] [phone] Lori Lau MD [address] [place] [address] Diet controlled gestational diabetes mellitus (GDM) in [...] Primary documented in this encounter Care Teams Obstetrics Gynecology Physician Relationship Specialty Start Date End Date Max Arizmendi [address] [place] [address] PCP - General 09/01/19 Tammy Naylor LPCA [address] [place] [address] Clinician Social Work 05/03/20 02/21/22 Anusha Molina APRN [address] [place] [address] Primary Attending Psychiatry, General 05/06/2002/22 Rachele Ornelas LCSW [address] [place] [address] Curve Cleaner Clinical Social Work 05/24/20 02/21/22 documented as of this encounter
--- OUTSIDE RECORDS SUMMARY | 2025-06-16 21:38 | XMS_ITS | Encounter Summary ---
Author Organization [employer] Address [address] [facility] 7t [place] [address] Care Team Providers Care Bakery Helper Name Role Phone Betsy Waldrop MD Primary Care Provider [phone] Reason for Visit * Reason Onset Date Comments Reschedule 12/17/2023 chart prep 12/17/2023 Encounter Details Date Type Department Care Team ([facility] st Contact Info) Description 12/17/2023 Telephone [facility] CHC MED & PEDS [address] [place] [address] Betsy Waldrop MD [address] [place] [address] Reschedule; chart prep Social History Tobacco Use [...] 12/16 PAP appointment. Please contact pt at [phone] documented in this encounter Plan of Treatment Upcoming Encounters Date Type Department Care Team (Late st Contact Info) Description 10/01/2025 2:00 PM EDT Office Visit [facility] OPTOMETRY [address] [place], [place] [phone] Rachele Arora, OD [address] [place], [place] [phone] documented as of this encounter Visit Diagnoses Not on filedocumented in this encounter Additional Health Concerns Assessment Noted Time PHQ-9 Depression Total Score: 13 024 8:42 AM EDT documented as of this encounter Care Teams Bakery Helper Relationship Specialty Start Date End Date Betsy Waldrop MD [address] [place] [address] PCP - General Family Medicine 08/30[facility]22 [facility] documented as of this encounter
--- OUTSIDE RECORDS SUMMARY | 2025-06-16 21:38 | XMS_ITS | Encounter Summary ---
Author Organization [employer] Address [address] [facility] 7t [place] [address] Care Team Providers Care Colon Therapist Name Role Phone Betsy Waldrop MD Primary Care Provider [phone] Encounter Details Date Type Department Care Team (Late st Contact Info) Description 11/19/2024 Orders Only [facility] CHC MED & PEDS [address] [place], [place] [phone] Velia Hudson MD [address] [place] [address] Anemia, unspecified type (Primary Dx) Social History [...] Description 10/01/2025 2:00 PM EDT Office Visit [facility] OPTOMETRY [address] [place] [address] TarkaRachele, OD [address] [place] [address] Pending Results Name Type Priority Associated Diagnoses [...] EDT) Zinc 65 60 - 130 mcg/dL [facility] Comment:This test was develo ped and its analytical performancecharacteristics have been determined by [employer] [place], [place]. It hasnot been cleared or approved by the U.S. Food and DrugAdministration. This assay has been validated pursuantto the CLIA regulations and is used for clinicalpurposes.THIS TEST WAS PERFORMED AT:[id number] [place] [address]FRVSVMW W. MASON,MD,PHD 04/27/2025 3:0 2 PM EDT 04/27/2025 3:17 PM EDT us Generic External Data Provider LAB BLOOD ORDERAB LES Final Result [facility] [address] [place] [phone] * Vitamin B12 (04/27/2025 3:02 PM EDT) Vitamin B12 466 200 - 900 pg/mL [facility] Comment:NORMAL 200-900 PG/ML INDETERMINATE 160-199 PG/ML DEFICIENT < 160 PG/ML 04/27/2025 3:02 PM EDT 04/27/2025 3:17 PM EDT Generic External Data Provider LAB BLOOD ORDERAB LES Final Result Performing Organization Address [facility] de Phone Number [facility] [address] [place] [phone] * Type and screen (04/27/2025 3:02 PM EDT) Blood Type BP [facility] Antibody Screen NEGATIVE [facility] 04/27/2025 3:02 PM EDT 04/27/2025 3:29 PM EDT Narrative [facility] - 04/27/2025 4:12 PM EDT Spec expiration changed by NISHANT on 04/27/25Reason: PAT SSSWITNESSED BY AGUSTIN.NURSING:Call Blood Bank (ext. [phone]) to band patient on admission.Type and Screen in effect until 2300 on 05/06/25 Generic External Data Provider LAB BLOOD BANK TE ST ORDERABLES Final Result Performing Organization Address [facility] Phone Number [facility] [address] [place] [address] [phone] * Hemoglobin A1c (04/27/2025 3:02 PM EDT) Hemoglobin A1c 4.8 <6.0 % [facility] Comment:Hemoglobin A1C Refer ence Range Adults: 4.8 - 6.0 % Non diabetic: < 6.0 % Goal: < 7.0 %Additional Action Suggested: > 8.0 %Note: Hemoglobin A1c results are invalid for patients with abnormal amounts of HbF. Blood transfusions may impact the HbA1c concentration in the patient sample. Estimated Average Glucose 91 mg/dL [facility] Comment:eAG = Estimated ave rage glucose which is %A1C expressed asaverage glucose, using the formula of the X9M-BrmvahbYswalkx Glucose study (ADAG), Diabetes Care, Vol.31,#8,2007 04/27/2025 3:02 PM EDT 04/27/2025 3:17 PM EDT us Generic External Data Provider LAB BLOOD ORDERAB LES Final Result [facility] [address] [place] [phone] [phone] * (ABNORMAL) CBC auto differential (04/27/2025 3:02 PM EDT) White Blood Count 5.0 4.8 - 10.8 X10*3/uL [facility] Red Blood Count 4.36 4.20 - 5.50 X10*6/uL [facility] Hemoglobin 10.5(L) 12.0 - 16.0 g/dl [facility] Hematocrit 34.1(L) 37.0 - 47.0 % [facility] Mean Corpuscular Volume 78.2(L) 80.0 - 98.0 fL [facility] Mean Corpuscular Hemoglobin 24.1(L) 27.0 - 33.0 pg [facility] Mean Corpuscular HGB Conc 30.8(L) 31.0 - 35.0 g/dl [facility] Red Cell Distribution Width 21.0(H) 11.0 - 16.0 % [facility] Platelet Count 184 160 - 400 X10*3/uL [facility] Mean Platelet Volume 10.0 9.4 - 12.3 fL [facility] Neutrophils Percent Auto 56.5 45 - 73 % [facility] Imm Gran Pct Auto 0.4 0.0 - 0.4 % [facility] Lymphocytes Percent Auto 31.1 20 - 40 % [facility] Monocytes Percent Auto 8.4 2 - 11 % [facility] Eosinophils Percent Auto 2.0 0 - 4 % [facility] Basophils Percent Auto 1.6 0 - 2 % [facility] NRBC Pct Auto 0.0 0.0 - 0.2 /100WBC [facility] Neutrophils Absolute Auto 2.8 2.0 - 8.3 x10*3/uL [facility] Imm Gran Abs Auto 0.02 0.00 - 0.03 X10*3/uL [facility] Lymphocytes Absolute Auto 1.6 1.2 - 4.9 X10*3/uL [facility] Monocytes Absolute Auto 0.4 0.1 - 1.2 X10*3/uL [facility] Eosinophils Absolute Auto 0.1 0.0 - 0.4 X10*3/uL [facility] Basophils Absolute Auto 0.1 0.0 - 0.2 X10*3/uL [facility] NRBC Abs Auto 0.000 0.0 - 0.012 X10*3/uL [facility] 04/27/2025 3:02 PM EDT 04/27/2025 3:17 PM EDT us Generic External Data Provider LAB BLOOD ORDERAB LES Final Result Performing Organization Address City/[facility]/ZIP Co de Phone Number [facility] [address] [place] [phone] * (ABNORMAL) Reticulocyte Count (11/24/2024 11:23 AM EDT) Reticulocytes Absolute 0.055 0.026 - 0.095 X10*6/uL [facility] Immature Retic Fraction 19.5(H) 3.0 - 15.9 % [facility] Retic HGB Equivalent 21.1(L) 30.0 - 35.0 pg [facility] Reticulocyte Percent 1.2 0.5 - 1.8 % [facility] Blood Venous blood specimen / Unknown 11/24/2024 11:23 AM EDT 11/24/2024 2:17 PM EDT us Velia Hudson MD LAB BLOOD ORDERABLES Final Result Performing Organization Address City/[facility]/ZIP Co de Phone Number [facility] [address] [place] [address] [phone] documented in this encounter Visit Diagnoses Diagnosis Anemia, unspecified type- Primary documented in this encounter Additional Health Concerns Assessment Noted Time PHQ-9 Depression Total Score: 13 024 8:42 AM EDT documented as of this encounter Care Teams Colon Therapist Relationship Specialty Start Date End Date Betsy Waldrop MD [address] [place] [address] PCP - General Family Medicine 08/30/22 [facility] 05/07/25 documented as of this encounter
--- OUTSIDE RECORDS SUMMARY | 2025-06-16 21:38 | XMS_ITS | Encounter Summary ---
Author Organization [facility] Address [address] [place] [address] Care Team Providers Care Electrician Supervisor Name Role Phone Max Arizmendi Primary Care Provider Tammy Naylor LPCA Unavailable Anusha Molina SOFTWARE APPLICATION TESTER Unavailable Rachele Ornelas DIRECTOR OF CARDIAC CATH LAB Unavailable Encounter Details Date Type Department Care Team (Late st Contact Info) Description 03/24/2020 [facility] [address] [facility] [address] [place] [phone] Dolly Enamorado MD [address] [facility] [address] [place] [address] Hypothyroidism (acquired) (Primary Dx) Social History Tobacco [...] Performing Organization Information: Site ID: [id number] Name: [facility] Address: [address] [place] [address], [place] [address] Director: Deanne Mcdonough MD us Dolly Enamorado MD LAB BLOOD ORDERABLES Final R esult [facility] [address] [place] [address], [place] [address] * T4, Free (04/15/2020 2:52 PM EDT) T4, Free 1.3 0.8 - 1.8 ng/dL [facility] Blood specimen (specimen) Heel structure / Unknown 04/15/2020 2:52 PM EDT 04/15/2020 2:52 PM EDT Narrative [facility] - 04/16/2020 3:40 AM EDT FASTING:NO FASTING: NO Resulting Agency Comment Performing Organization Information: Site ID: [id number] Name: [employer] [facility] Address: [address] [place] [address], [facility] [place] [address] Director: Deanne Mcdonough MD Dolly Enamorado MD LAB BLOOD ORDERABLES Final R esult [facility] [address], [place] [address] documented in this encounter Visit Diagnoses Diagnosis Hypothyroidism (acquired)- Primary Unspecified hypothyroidism documented in this encounter Care Teams Electrician Supervisor Relationship Specialty Start Date End Date Max Arizmendi [address] [place] [address] PCP - General 09/01/19 Tammy Naylor LPCA [address] [place] [address] Clinician Social Work 05/03/20 02/21/22 Anusha Molina APRN [address] [place] [address] Primary BH Attending Psychiatry, General 05/06/2002/22 [place] Rachele Lawrence LCSW [address] [place] [address] House Coordinator Clinical Social Work 05/24/20 02/21/22 documented as of this encounter
--- OUTSIDE RECORDS SUMMARY | 2025-06-16 21:38 | XMS_ITS | Encounter Summary ---
Author Organization [employer] Address [address] [facility] 7t [place] [address] Care Team Providers Care Medical Office Specialist Name Role Phone Betsy Waldrop MD Primary Care Provider [phone] Encounter Details Date Type Department Care Team (Late Contact Info) Description 12/04/2022 Abstract [facility] Information Management [address] [place] [address] Betsy Waldrop MD [address] [place] [address] Social History Tobacco Use Types Packs/Day Years [...] Description 10/01/2025 2:00 PM EDT Office Visit [facility] OPTOMETRY [address] [place] [address] Rachele Arora, OD [address] [place] [address] documented as of this encounter Visit Diagnoses Not on filedocumented in this encounter Additional Health Concerns Assessment Noted Time PHQ-9 Depression Total Score: 12 023 1:23 PM EDT documented as of this encounter Care Teams Medical Office Specialist Relationship Specialty Start Date End Date Betsy Waldrop MD [address] [place] [address] PCP - General Family Medicine 08/30[facility]22 [facility] documented as of this encounter
== END 2025-06-16 15:16 | disposition home or self-care (01) ==
LOC: HO.HBS 13:55
PROVIDERS: Visit Provider Nurse Practitioner
DX: L98.7 Excessive and redundant skin and subcutaneous tissue (principal); Z98.84 Bariatric surgery status; Z98.890 Other specified postprocedural states
CPT/HCPCS: 99024; 99499

== ENCOUNTER → 2025-06-16 13:54 | Outpatient (BNVA) | payer MEDICAID, SELFPAY | PROVIDERS: Visit Provider Nurse Practitioner | DX: Z48.815 Encounter for surgical aftercare following surgery on the digestive system (principal); Z98.890 Other specified postprocedural states; Z98.84 Bariatric surgery status | CPT/HCPCS: 99212 ==